=== PATIENT | female | born 1940 | race Caucasian/White ===

== ENCOUNTER 2016-09-23 02:28 | Observation (INO) | payer BC ==
[2016-09-23] VITALS (9 sets, daily range): BP systolic 95–147; BP diastolic 56–90; PULSE 60–70; TEMP 36.3–36.9; O2SAT 95–97; BMI 31.0
[~2016-09-23] VITALS: Ht 144.8 cm; Wt 64.1 kg
[~2016-09-23 02:28] MED LIST: ASPI81TA25 PO; CALC500T83 PO; CARV12.52 PO; DVN80 PO; FURO-85 PO; GABA1CAP PO; INSUINJ4 SQ; IRON1TAB4 PO; ISOS60TA PO; NVLGI SQ; OMEP20TA PO; TRAM-453 PO
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
[2016-09-23 03:17] LABS: BASO % 0.5 %; BASO ABS # 0.04 K/uL (0-0.2); COMPLETE YES; EOS % 2.8 %; HEMATOCRIT 40.2 % (37-47); IG% 0.3 %; LYMPH % 43.5 %; LYMPH ABS # 3.42 K/uL (1.2-3.4); MEAN CORPUSCULAR HEMOGLOBIN 30.5 pg (25-34); MEAN CORPUSCULAR HGB CONC 33.6 g/dl (32-36); MEAN PLATELET VOLUME 10.2 fL (7.4-10.4); MONO % 7.6 %; NEUT % 45.3 %; PLATELET COUNT 290 K/uL (130-400); RED BLOOD COUNT 4.42 M/uL (4.2-5.4); WHITE BLOOD COUNT 7.86 K/uL (4.8-10.8)
[2016-09-23 03:20] LABS: BUN/CREATININE RATIO 17.8 (10-20); CALCIUM 8.8 mg/dl (8.5-10.1); CREATININE 1.2 mg/dl (0.60-1.20); POTASSIUM 3.6 mmol/L (3.5-5.1)
[2016-09-23 03:21] LABS: URINE APPEARANCE CLEAR (CLEAR); URINE BILIRUBIN NEG (NEG); URINE COLOR YELLOW; URINE NITRITE NEG (NEG); URINE PH 5.5 (4.5-7.5); UROBILINOGEN NEG (NEG)
[2016-09-23 03:30] LABS: MANUAL MICROSCOPIC REQUIRED? NO; REVIEW REQ? NO
[2016-09-23] MEDS ORDERED: FLUT0.15 NAE (04:00)
[2016-09-23] MEDS ORDERED: CETI10TA84 PO (04:01)
[2016-09-23] MEDS ORDERED: PRVC/40 PO (04:04)
[2016-09-23] MEDS ORDERED: ZNTT/150 PO (04:06)
[2016-09-23] MEDS ORDERED: VNTHFA/IN INH (04:07)
[2016-09-23] MEDS ORDERED: LVMI SQ (04:09)
[2016-09-23] MEDS ORDERED: MECL1TAB42 PO (04:11)
[2016-09-23] MEDS ORDERED: MULTTAB58 PO (04:14)
[2016-09-23] MEDS ORDERED: ASPI81TA28 PO (04:15)
[2016-09-23] MEDS ORDERED: GLUCAGON FOR INJ 1 MG VIAL SQ PRN (05:15)
[2016-09-23] MEDS ORDERED: DEXTROSE 50% 50 ML SYR IV PRN (05:15)
[2016-09-23] MEDS ORDERED: ALUMINUM/MAGNESIUM/SIMETH (MAALOX MAX) 30 ML UDC PO PRN (05:15)
[2016-09-23] MEDS ORDERED: GLUCOSE 10 TABS/TUBE PO PRN (05:15)
[2016-09-23] MEDS ORDERED: ONDANSETRON INJ 2 MG/ML 2 ML VIAL IV PRN (05:15)
[2016-09-23] MEDS ORDERED: GLUCOSE 40% GEL 15 GM TUBE PO PRN (05:15)
[2016-09-23] MEDS ORDERED: MAGNESIUM HYDROXIDE SUSP 30 ML UDC PO PRN (05:15)
[2016-09-23] MEDS ORDERED: POLYETHYLENE (MIRALAX) 17 GM PACK PO PRN (05:15)
[2016-09-23] MEDS ORDERED: PHARMACY GLYCEMIC MGMT CONSULT PRN (05:29)
[2016-09-23] MEDS ORDERED: ENALAPRILAT IV 1.25 MG in DEXTROSE 5% 25ML 25 ML IV STA (05:32)
[2016-09-23] MEDS ORDERED: IV FLUIDS COMPLETED PRN (06:00)
[2016-09-23 06:15] LABS: INR 0.9 (0.9-1.1); PROTHROMBIN TIME (PATIENT) 9.9 SECONDS (9.0-12.0)
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
--- NOTE | 2016-09-23 07:09 | DIAGNOSTIC IMAGING REPORT ---
HEAD CT NONCONTRAST CT DOSE: 537.48 mGy.cm HISTORY: dizziness and unsteadiness TECHNIQUE: Multiaxial CT images of the head were performed without the use of intravenous contrast. Automated exposure control was utilized for this study. Comparison: Head CT 11/01/2012. Findings: The paranasal sinuses and mastoid air cells are clear. The calvarium and skull base are intact. There is no mass, hematoma, midline shift, acute infarct. White matter hypodensity is nonspecific but suggestive of microvascular ischemic change. The ventricles and sulci demonstrate mild age-related involutional changes. Old lacunar infarct within the right basal ganglia. Impression: No significant change compared to the prior study. No acute intracranial abnormality. Electronically signed by: Mushtaq Lopez M.D. 09/23/2016 7:07 AM Dictated Date/Time: 09/23/2016 7:06 AM
--- NOTE | 2016-09-23 07:17 | DIAGNOSTIC IMAGING REPORT ---
CHEST 2 VIEWS ROUTINE CLINICAL HISTORY: productive cough COMPARISON STUDY: 11/01/2012 FINDINGS: The heart is enlarged. There are postsurgical changes of a midline sternotomy. There is a left subclavian pacer/defibrillator present. There are low lung volumes. There is no failure. There is no lobar consolidation. There are no pleural effusions. Degenerative changes are present within the dorsal spine.[ IMPRESSION: Persistent cardiomegaly. No acute findings. Electronically signed by: Bryan Sherwood M.D. 09/23/2016 7:16 AM Dictated Date/Time: 09/23/2016 7:15 AM
[2016-09-23] MEDS: SODIUM CHLORIDE 0.9% 1000ML 1,000 ML IV SCH ×2 (07:45→15:32)
[2016-09-23] MEDS: ASPIRIN 81 MG ECTAB PO SCH (09:18)
[2016-09-23] MEDS: MECLIZINE HCL 12.5 MG TAB PO PRN (09:19)
[2016-09-23] MEDS: CARVEDILOL 12.5 MG TAB PO SCH ×2 (09:19→20:16)
[2016-09-23] MEDS: RANITIDINE HCL 150 MG TAB PO SCH ×2 (09:19→20:17)
[2016-09-23] MEDS: VALSARTAN 80 MG TAB PO SCH (09:19)
[2016-09-23] MEDS: GABAPENTIN 100 MG CAP PO SCH ×2 (09:19→20:16)
[2016-09-23] MEDS: CETIRIZINE HCL 10 MG TAB PO SCH (09:19)
[2016-09-23] MEDS: FLUTICASONE PROPIONATE NA SPR 16 GM BTL NAE SCH (09:21)
[2016-09-23] MEDS: HEPARIN SOD 5000 UNIT/0.5 ML CARP SQ SCH ×2 (09:27→20:22)
[2016-09-23] MEDS: INSULIN ASPART 100 UNITS/ML 3 ML PEN SC SCH ×4 (09:28→20:21)
[2016-09-23] MEDS: INSULIN GLARGINE SOLOSTAR 100 UNITS/ML 3 ML PEN SC SCH ×2 (09:29→20:20)
--- NOTE | 2016-09-23 12:01 | Pharmacy Progress Note ---
Glycemic Control Intl Consult Date of Service Sep 23, 2016. Scope Glycemic Pharmacist consulted by Dr Canada on 09/23/16 for glycemic control and to write orders per [facility] inpatient glycemic control protocol Objective Weight (Kilograms): 65.000 Accuchecks BSG (last 24hrs): Test 09/23/16 02:45 09/23/16 07:51 Random Glucose 211 mg/dl (70-99) Bedside Glucose 193 mg/dl (70-90) Laboratory Data (last 24hrs) Test 09/23/16 02:45 Anion Gap 8.0 mmol/L BUN/Creatinine Ratio 17.8 Blood Urea Nitrogen 21 mg/dl Creatinine 1.20 mg/dl Potassium Level 3.6 mmol/L Sodium Level 141 mmol/L White Blood Count 7.86 K/uL Red Blood Count 4.42 M/uL Hemoglobin 13.5 g/dL Hematocrit 40.2 % Mean Corpuscular Volume 91.0 fL Mean Corpuscular Hemoglobin 30.5 pg Mean Corpuscular Hemoglobin Concent 33.6 g/dl Platelet Count 290 K/uL Mean Platelet Volume 10.2 fL Neutrophils (%) (Auto) 45.3 % Lymphocytes (%) (Auto) 43.5 % Monocytes (%) (Auto) 7.6 % Eosinophils (%) (Auto) 2.8 % Basophils (%) (Auto) 0.5 % Neutrophils # (Auto) 3.56 K/uL Lymphocytes # (Auto) 3.42 K/uL Monocytes # (Auto) 0.60 K/uL Eosinophils # (Auto) 0.22 K/uL Basophils # (Auto) 0.04 K/uL Recent Pertinent Medications Outpatient Anti-diabetic Regimen: * [id number] units qPM plus Novolog 9 units BID with meals (NOTE: patient noncompliant with regimen due to dementia) Risk Factors for Insulin Resistance: * Diet: type 2 diabetic diet Assessment & Plan ASSESSMENT: * ADA & AACE recommend a goal blood sugar range 140-180 mg/dl for the majority of critically ill & non-critically ill patients. However, more stringent targets may be selected in individual cases. Will utilize more stringent goal of 110-140mg/dl based on patient age & comorbidities. I believe that a lower goal range will benefit this patient as she is not elderly and will help to prevent microvascular and macrovascular complications. * Ms Liu is a 75 y/o F admitted 09/23/2016 for weakness. She has a PMH of CAD , ischemic cardiomyopathy, HTN, and dementia. She has not been compliant with her medications. * As I am unsure about the dosing of her outpatient regimen, I felt that the safest place to start was weight-based stress of 2 dosing. Lantus 10 units twice daily was slightly less than her outpatient dosing so that appeared appropriate. If her lunch blood sugar trends upwards significantly, the correctional Novolog can be tightened slightly. PLAN FOR INPATIENT GLYCEMIC CONTROL: * Basal insulin with LANTUS 10 units SQ BID * Correctional Insulin with NOVOLOG per scale ACHS * Goal Range: Low 110 mg/dL - High 140 mg/dL * Correction Factor: 35 mg/dL/unit * Nutritional / Prandial insulin per carb ratio of 1 unit per 12 grams CHO consumed * Please note that the plan above was derived based on current level of insulin resistance and hospital stress. These recommendations are appropriate for inpatient admission only. Plan of care upon discharge will need to be reassessed to avoid potential outpatient hypo/hyperglycemia. Thank you.
[2016-09-23] MEDS: PRAVASTATIN SOD 40 MG TAB PO SCH (20:17)
[2016-09-23] MEDS: ACETAMINOPHEN 325 MG TAB PO PRN (20:44)
--- NOTE | 2016-09-23 21:22 | Progress Note ---
Progress Note Date of Service Sep 23, 2016. Progress Note Hospital medicine recheck. Admitted this morning due to change of mental status. Head CT showed small vessel ischemic changes in the white matter, no acute findings. Patient reassessed around 17:00. Blood pressure this afternoon 95/56. Patient comfortable, but has ongoing confusion. PT / OT evals requested. Case Management consulted. .
[2016-09-24] VITALS (9 sets, daily range): BP systolic 119–161; BP diastolic 66–76; PULSE 60–65; TEMP 36.4–36.7; O2SAT 92–98; Ht 144.8 cm; Wt 64.1 kg
[2016-09-24] MEDS: SODIUM CHLORIDE 0.9% 1000ML 1,000 ML IV SCH ×2 (01:34→10:38)
[2016-09-24 08:18] LABS: BUN/CREATININE RATIO 17.4 (10-20); CREATININE 0.88 mg/dl (0.60-1.20); POTASSIUM 3.7 mmol/L (3.5-5.1)
[2016-09-24 08:30] LABS: THYROID STIMULATING HORMONE 1.57 uIu/ml (0.300-4.500)
[2016-09-24 08:45] LABS: ESTIMATED AVERAGE GLUCOSE 272 mg/dl; HA1C FLAG Normal (Normal)
[2016-09-24] MEDS: VALSARTAN 80 MG TAB PO SCH (08:58)
[2016-09-24] MEDS: FLUTICASONE PROPIONATE NA SPR 16 GM BTL NAE SCH (08:58)
[2016-09-24] MEDS: CARVEDILOL 12.5 MG TAB PO SCH ×2 (08:59→20:44)
[2016-09-24] MEDS: ASPIRIN 81 MG ECTAB PO SCH (08:59)
[2016-09-24] MEDS: CETIRIZINE HCL 10 MG TAB PO SCH (08:59)
[2016-09-24] MEDS: GABAPENTIN 100 MG CAP PO SCH ×2 (08:59→20:44)
[2016-09-24] MEDS: RANITIDINE HCL 150 MG TAB PO SCH ×2 (08:59→20:44)
[2016-09-24] MEDS: INSULIN GLARGINE SOLOSTAR 100 UNITS/ML 3 ML PEN SC SCH ×2 (09:00→21:28)
[2016-09-24] MEDS: HEPARIN SOD 5000 UNIT/0.5 ML CARP SQ SCH ×2 (09:01→21:29)
[2016-09-24 09:02] LABS: CALCIUM 8.1 mg/dl (8.5-10.1)
[2016-09-24] MEDS: MECLIZINE HCL 12.5 MG TAB PO PRN (09:12)
--- NOTE | 2016-09-24 10:14 | Pharmacy Progress Note ---
Glycemic Control: Progress Nt Date of Service Sep 24, 2016. Scope Glycemic Pharmacist consulted by Dr Canada on 09/23/16 for glycemic control and to write orders per [facility] inpatient glycemic control protocol. Objective Accuchecks BSG (last 24hrs): Test 09/23/16 11:28 09/23/16 15:57 09/23/16 20:10 09/24/16 07:08 Bedside Glucose 196 mg/dl (70-90) 217 mg/dl (70-90) 166 mg/dl (70-90) Random Glucose 159 mg/dl (70-99) Test 09/24/16 07:34 Bedside Glucose 166 mg/dl (70-90) Laboratory Data (last 24hrs) Test 09/24/16 07:08 Anion Gap 10.0 mmol/L BUN/Creatinine Ratio 17.4 Blood Urea Nitrogen 15 mg/dl Creatinine 0.88 mg/dl Hemoglobin A1c 11.1 % Potassium Level 3.7 mmol/L Sodium Level 145 mmol/L HbA1c: Test 09/24/16 07:08 Hemoglobin A1c 11.1 % (4.5-5.6) H Recent Pertinent Medications Outpatient Anti-diabetic Regimen: * [id number] units qPM plus Novolog 9 units BID with meals (NOTE: patient noncompliant with regimen due to dementia) Risk Factors for Insulin Resistance: * Diet: type 2 diabetic diet Assessment & Plan ASSESSMENT: * ADA & AACE recommend a goal blood sugar range 140-180 mg/dl for the majority of critically ill & non-critically ill patients. However, more stringent targets may be selected in individual cases. Will utilize more stringent goal of 110-140mg/dl based on patient age & comorbidities. I believe that a lower goal range will benefit this patient as she is not elderly and will help to prevent microvascular and macrovascular complications. * Ms Liu is a 75 y/o F admitted 09/23/2016 for weakness. She has a PMH of CAD , ischemic cardiomyopathy, HTN, and dementia. She has not been compliant with her medications. She was started on Lantus 10 units twice daily with correctional insulin weight-based stress of 2. * This morning, her fasting blood sugar was 166 mg/dL which was stable from last night. Her lunch was 248 mg/dL because her breakfast insulin was not administered. There was a mix-up. I believe she may need closer to 50 units/ day. Lantus was increased and Novolog tightened to reflect this. PLAN FOR INPATIENT GLYCEMIC CONTROL: * Basal insulin with LANTUS 13 units SQ BID * Correctional Insulin with NOVOLOG per scale ACHS * Goal Range: Low 110 mg/dL - High 140 mg/dL * Correction Factor: 30 mg/dL/unit * Nutritional / Prandial insulin per carb ratio of 1 unit per 10 grams CHO consumed DISCHARGE RECOMMENDATIONS * Patient's HbA1C is very elevated and above goal of 7.6-8.0%. I recommend utilizing Lantus + Novolog and titrating to desired blood sugars. Patient may tolerate Lantus 13 units twice daily with 5 units with meals. Thank you.
[2016-09-24] MEDS: INSULIN ASPART 100 UNITS/ML 3 ML PEN SC SCH ×3 (12:38→21:29)
--- NOTE | 2016-09-24 20:33 | Progress Note ---
Medicine Progress Note Date & Time of Visit: Sep 24, 2016 at 15:12 . Subjective Less confused. No fever. No chest pain. No cough or shortness of breath. No nausea, vomiting, diarrhea. No urinary symptoms. No headache. Evaluated by PT- ongoing therapies recommended. Family visiting. . Objective Last 8 Hrs Date Time Temp Pulse Resp B/P (MAP) Pulse Ox O2 Delivery O2 Flow Rate FiO2 09/24/16 14:39 36.4 61 20 161/69 (99) 95 Room Air 09/24/16 12:00 Room Air 09/24/16 11:42 36.4 63 18 151/76 (101) 97 Room Air 09/24/16 08:57 65 152/66 (94) 09/24/16 08:00 Room Air Physical Exam: General- no distress Eyes- anicteric Neck- no JVD Lungs- clear to auscultation Heart- RRR Abdomen- + BS, soft, nontender Extremities- no pretibial edema or calf tenderness Neuro- alert, oriented to person, hospital, month and year (but not date); PERRL , EOMI, no nystagmus; no facial palsy; no dysarthria; motor strength upper and lower extremities grossly intact . Laboratory Results: Last 24 Hours Test 09/23/16 15:57 09/23/16 20:10 09/24/16 07:08 09/24/16 07:34 Bedside Glucose 217 mg/dl 166 mg/dl 166 mg/dl Sodium Level 145 mmol/L Potassium Level 3.7 mmol/L Chloride Level 112 mmol/L Carbon Dioxide Level 23 mmol/L Anion Gap 10.0 mmol/L Blood Urea Nitrogen 15 mg/dl Creatinine 0.88 mg/dl Est Creatinine Clear Calc Drug Dose 43.8 ml/min Estimated GFR () 75.0 Estimated GFR (Non- 64.7 BUN/Creatinine Ratio 17.4 Random Glucose 159 mg/dl Estimated Average Glucose 272 mg/dl Hemoglobin A1c 11.1 % Calcium Level 8.1 mg/dl Vitamin B12 Level 330 pg/mL 25-Hydroxy Vitamin D Total 13.2 ng/ml Thyroid Stimulating Hormone (TSH) 1.570 uIu/ml Test 09/24/16 11:21 Bedside Glucose 248 mg/dl Assessment & Plan ALTERED MENTAL STATUS Head CT showed old lacunar stroke and white matter small vessel ischemic disease , no acute events. Altered mental status may been secondary to metabolic encephalopathy from meclizine or perhaps from concussion from fall. Improved. Underlying dementia as discussed below. VERTIGO Reduce meclizine to 12.5 mg PRN. AMBULATORY DYSFUNCTION Probably multifactorial. Ongoing therapies recommended. CAD No anginal symptoms. Continue aspirin, carvedilol, statin. CHF History of chronic left ventricular systolic heart failure attributed to ischemic heart disease with LVEF in 40's. Compensated. Continue carvedilol, valsartan, furosemide PRN. HISTORY BRADYCARDIA ARRHYTHMIAS Pacemaker check requested. HYPERTENSION Continue carvedilol and losartan. DM TYPE 2 Not well-controlled. Hgb A1c 11.1. Compliance at home uncertain. Lantus + NovoLog per protocol. DEMENTIA Family has noted progressive memory difficulties. CT demonstrated lacunar strokes and small vessel white matter disease. Suspect Alzheimer's disease and/or vascular dementia. B12 and TSH normal. Medications for dementia may have more adverse reactions benefit; will not initiate at this time. Consider outpatient referral to Neurology. VTE PROPHYLAXIS SQ heparin. Ambulate. DISPOSITION Inpatient rehabilitation recommended, but patient declines. She is not interested in nursing home facilities either. Anticipated discharge to home with home health services. Medical follow-up with Dr. Gallardo. . Current Inpatient Medications: Current Inpatient Medications Medications (Trade) Dose Ordered Sig/Lam Route Start Time Stop Time Status Last Admin Dose Admin Heparin Sodium (Porcine) (Heparin Sq 5000 Unit/0.5ml) 5,000 unit Q12 SQ 09/23/16 09:00 10/23/16 08:59 09/24/16 09:01 5,000 UNIT Sodium Chloride 1,000 ml @ 100 mls/hr Q10H IV 09/23/16 05:11 10/23/16 05:10 09/24/16 10:38 100 MLS/HR Acetaminophen (Tylenol Tab) 650 mg Q4H PRN PO 09/23/16 05:15 10/23/16 05:14 09/23/16 20:44 650 MG Al Hydrox/Mg Hydrox/Simethicone (Maalox Max Susp) 15 ml Q4H PRN PO 09/23/16 05:15 10/23/16 05:14 Magnesium Hydroxide (Milk Of Magnesia Susp) 30 ml Q12H PRN PO 09/23/16 05:15 10/23/16 05:14 Ondansetron HCl (Zofran Inj) 4 mg Q6H PRN IV 09/23/16 05:15 10/23/16 05:14 Polyethylene (Miralax Powder Packet) 17 gm DAILY PRN PO 09/23/16 05:15 10/23/16 05:14 Glucose (Glucose 40% Gel) 15-30 GRAMS 15 GRAMS... UD PRN PO 09/23/16 05:15 10/23/16 05:14 Glucose (Glucose Chew Tab) 4-8 Tablets 4 Tabl... UD PRN PO 09/23/16 05:15 10/23/16 05:14 Dextrose (Dextrose 50% 50ML Syringe) 25-50ML OF 50% DW IV FOR... UD PRN IV 09/23/16 05:15 10/23/16 05:14 Glucagon (Glucagon Inj) 1 mg UD PRN SQ 09/23/16 05:15 10/23/16 05:14 Miscellaneous Information (Consult Glycemic Management Pharmacy) 1 ea DAILY PRN N/A 09/23/16 05:29 10/23/16 05:28 Aspirin (Ecotrin Tab) 81 mg DAILY PO 09/23/16 09:00 10/23/16 08:59 09/24/16 08:59 81 MG Carvedilol (Coreg Tab) 12.5 mg BID PO 09/23/16 09:00 10/23/16 08:59 09/24/16 08:59 12.5 MG Cetirizine HCl (zyrTEC TAB) 10 mg DAILY PO 09/23/16 09:00 10/23/16 08:59 09/24/16 08:59 10 MG Fluticasone Propionate (Flonase Nasal [place]) 2 sprays DAILY ANDREW 09/23/16 09:00 10/23/16 08:59 09/24/16 08:58 2 SPRAYS Gabapentin (Neurontin Cap) 100 mg BID PO 09/23/16 09:00 10/23/16 08:59 09/24/16 08:59 100 MG Meclizine HCl (Antivert Tab) 25 mg TID PRN PO 09/23/16 05:15 10/23/16 05:14 09/24/16 09:12 25 MG Pravastatin Sodium (Pravachol Tab) 40 mg PM PO 09/23/16 21:00 10/23/16 20:59 09/23/16 20:17 40 MG Ranitidine HCl (zANTac TAB) 150 mg BID PO 09/23/16 09:00 10/23/16 08:59 09/24/16 08:59 150 MG Valsartan (Diovan Tab) 80 mg DAILY PO 09/23/16 09:00 10/23/16 08:59 09/24/16 08:58 80 MG Miscellaneous (Iv Fluids Completed) 1 ea PRN PRN N/A 09/23/16 06:00 09/23/17 05:59 Insulin Glargine (Lantus Solostar Pen) 13 unit Q12 SC 09/24/16 09:00 10/24/16 08:59 09/24/16 09:00 13 UNIT Insulin Aspart (novoLOG ASPART) SLIDING SCALE If C... ACHS SC 09/24/16 11:00 10/24/16 10:59 09/24/16 12:38 10 UNITS
[2016-09-24] MEDS: PRAVASTATIN SOD 40 MG TAB PO SCH (20:44)
[2016-09-24] MEDS ORDERED: MECLIZINE HCL 12.5 MG TAB PO PRN (20:45)
[2016-09-24] MEDS: ACETAMINOPHEN 325 MG TAB PO PRN (22:30)
[2016-09-25] VITALS (10 sets, daily range): BP systolic 125–157; BP diastolic 63–80; PULSE 61–70; TEMP 36.5–37; O2SAT 95–99
[2016-09-25] MEDS: FLUTICASONE PROPIONATE NA SPR 16 GM BTL NAE SCH (08:40)
[2016-09-25] MEDS: INSULIN GLARGINE SOLOSTAR 100 UNITS/ML 3 ML PEN SC SCH ×2 (08:41→21:18)
[2016-09-25] MEDS: INSULIN ASPART 100 UNITS/ML 3 ML PEN SC SCH ×4 (08:41→20:57)
[2016-09-25] MEDS: HEPARIN SOD 5000 UNIT/0.5 ML CARP SQ SCH ×2 (08:41→21:19)
[2016-09-25] MEDS: CARVEDILOL 12.5 MG TAB PO SCH ×2 (08:43→21:16)
[2016-09-25] MEDS: CETIRIZINE HCL 10 MG TAB PO SCH (08:43)
[2016-09-25] MEDS: ASPIRIN 81 MG ECTAB PO SCH (08:43)
[2016-09-25] MEDS: VALSARTAN 80 MG TAB PO SCH (08:44)
[2016-09-25] MEDS: RANITIDINE HCL 150 MG TAB PO SCH ×2 (08:44→21:16)
[2016-09-25] MEDS: GABAPENTIN 100 MG CAP PO SCH ×2 (08:45→21:15)
[2016-09-25] MEDS ORDERED: FUROSEMIDE 20 MG TAB PO ONE (13:00)
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
[2016-09-26] VITALS (8 sets, daily range): BP systolic 112–158; BP diastolic 63–82; PULSE 59–91; TEMP 36.2–36.8; O2SAT 93–98
[2016-09-26 06:55] LABS: HEMATOCRIT 35.4 % (37-47); MEAN CELL VOLUME 90.3 fL (80-100); MEAN CORPUSCULAR HEMOGLOBIN 29.8 pg (25-34); MEAN CORPUSCULAR HGB CONC 33.1 g/dl (32-36); MEAN PLATELET VOLUME 9.9 fL (7.4-10.4); PLATELET COUNT 242 K/uL (130-400); RED BLOOD COUNT 3.92 M/uL (4.2-5.4); WHITE BLOOD COUNT 7.58 K/uL (4.8-10.8)
[2016-09-26 07:35] LABS: CALCIUM 8.2 mg/dl (8.5-10.1); CREATININE 0.81 mg/dl (0.60-1.20); POTASSIUM 3.7 mmol/L (3.5-5.1)
[2016-09-26] MEDS: ASPIRIN 81 MG ECTAB PO SCH (07:35)
[2016-09-26] MEDS: VALSARTAN 80 MG TAB PO SCH (07:36)
[2016-09-26] MEDS: CARVEDILOL 12.5 MG TAB PO SCH ×2 (07:36→21:18)
[2016-09-26] MEDS: RANITIDINE HCL 150 MG TAB PO SCH ×2 (07:36→21:18)
[2016-09-26] MEDS: CETIRIZINE HCL 10 MG TAB PO SCH (07:36)
[2016-09-26] MEDS: FLUTICASONE PROPIONATE NA SPR 16 GM BTL NAE SCH (07:37)
[2016-09-26] MEDS: GABAPENTIN 100 MG CAP PO SCH ×2 (07:37→21:18)
[2016-09-26] MEDS: INSULIN ASPART 100 UNITS/ML 3 ML PEN SC SCH ×4 (08:57→21:00)
[2016-09-26] MEDS: HEPARIN SOD 5000 UNIT/0.5 ML CARP SQ SCH ×2 (08:57→21:20)
--- NOTE | 2016-09-26 14:14 | Pharmacy Progress Note ---
Glycemic Control: Progress Nt Date of Service Sep 26, 2016. Scope Glycemic Pharmacist consulted by on 09/23/16 for glycemic control and to write orders per [facility] inpatient glycemic control protocol. Objective Accuchecks BSG (last 24hrs): Test 09/25/16 16:36 09/25/16 20:35 09/26/16 06:27 09/26/16 07:51 Bedside Glucose 117 mg/dl (70-90) 122 mg/dl (70-90) 135 mg/dl (70-90) Random Glucose 158 mg/dl (70-99) Test 09/26/16 11:34 Bedside Glucose 213 mg/dl (70-90) Laboratory Data (last 24hrs) Test 09/26/16 06:27 Anion Gap 8.0 mmol/L BUN/Creatinine Ratio 16.0 Blood Urea Nitrogen 13 mg/dl Creatinine 0.81 mg/dl Potassium Level 3.7 mmol/L Sodium Level 143 mmol/L White Blood Count 7.58 K/uL HbA1c: Test 09/24/16 07:08 Hemoglobin A1c 11.1 % (4.5-5.6) H Recent Pertinent Medications Outpatient Anti-diabetic Regimen: * Levemir 25 units PM. Novolog 9 units BIDM (pt reports missing doses. helped her take insulin; he 2 years ago.) * A1c = 11.1 % from 09/24/16 Risk Factors for Insulin Resistance: * Diet: AHA/DM2 Assessment & Plan ASSESSMENT: * ADA & AACE recommend a goal blood sugar range 140-180 mg/dl for the majority of critically ill & non-critically ill patients. However, more stringent targets may be selected in individual cases. 09/24/16 * Ms Liu is a 75 y/o F admitted 09/23/2016 for weakness. She has a PMH of CAD , ischemic cardiomyopathy, HTN, and dementia. She has not been compliant with her medications. She was started on Lantus 10 units twice daily with correctional insulin weight-based stress of 2. * This morning, her fasting blood sugar was 166 mg/dL which was stable from last night. Her lunch was 248 mg/dL because her breakfast insulin was not administered. There was a mix-up. I believe she may need closer to 50 units/ day. Lantus was increased and Novolog tightened to reflect this. 09/26/16 * FBG this morning was 135 mg/dl. TDD is stable at 40 units per day. Basal vs prandial insulin needs seem near equally distributed. * BSGs are reasonably controlled at this time. Will adjust Lantus toward HS dosing for smoother transition to home dose upon discharge. * Will start first dose this afternoon to avoid prolonged withdraw of basal insulin causing hyperglycemia. * Pre-lunch BSG today was 213 mg/dl. ?Could be due to withholding today's AM Lantus dose in prep to transition to HS dosing. * No other changes warranted at this time. PLAN FOR INPATIENT GLYCEMIC CONTROL: * Adjust Lantus to HS - Lantus 25 units SQ HS * Start first dose with supper today * Novolog ACHS * Continue correction factor 30 mg/dl/unit * Continue carb ratio 1 unit per 10 grams CHO consumed * Continue goal range Low 110 mg/dL - High 140 mg/dL * Please note that the plan above was derived based on current level of insulin resistance and hospital stress. These recommendations are appropriate for inpatient admission only. Plan of care upon discharge will need to be reassessed to avoid potential outpatient hypo/hyperglycemia. Thank you.
[2016-09-26] MEDS ORDERED: FUROSEMIDE 20 MG TAB PO ONE (16:00)
[2016-09-26] MEDS ORDERED: POTASSIUM CHLORIDE 20 MEQ TABCR PO ONE (16:00)
--- NOTE | 2016-09-26 16:05 | Progress Note ---
Medicine Progress Note Date & Time of Visit: Sep 26, 2016 at 14:20 . Subjective No new concerns. No fever. No chest pain. Has some mild dependent edema. No cough or SOB. No nausea, vomiting, diarrhea. No urinary symptoms. No headaches. No vertigo. . Objective Last 8 Hrs Date Time Temp Pulse Resp B/P (MAP) Pulse Ox O2 Delivery O2 Flow Rate FiO2 09/26/16 15:20 36.8 62 16 147/65 (92) 98 151/78 (102) 09/26/16 12:00 Room Air 09/26/16 11:28 36.2 59 16 112/63 (79) 98 Room Air Physical Exam: General- no distress Eyes- anicteric Neck- no JVD Lungs- clear to auscultation Heart- RRR Abdomen- + BS, soft, nontender Extremities- trace pretibial edema; no calf tenderness Neuro- alert, oriented to person, hospital, and date (after referring to date noted on activity board on wall) . Laboratory Results: Last 24 Hours Test 09/25/16 16:36 09/25/16 20:35 09/26/16 06:27 09/26/16 07:51 Bedside Glucose 117 mg/dl 122 mg/dl 135 mg/dl White Blood Count 7.58 K/uL Red Blood Count 3.92 M/uL Hemoglobin 11.7 g/dL Hematocrit 35.4 % Mean Corpuscular Volume 90.3 fL Mean Corpuscular Hemoglobin 29.8 pg Mean Corpuscular Hemoglobin Concent 33.1 g/dl RDW Standard Deviation 44.1 fL RDW Coefficient of Variation 13.3 % Platelet Count 242 K/uL Mean Platelet Volume 9.9 fL Sodium Level 143 mmol/L Potassium Level 3.7 mmol/L Chloride Level 110 mmol/L Carbon Dioxide Level 25 mmol/L Anion Gap 8.0 mmol/L Blood Urea Nitrogen 13 mg/dl Creatinine 0.81 mg/dl Est Creatinine Clear Calc Drug Dose 47.6 ml/min Estimated GFR () 82.9 Estimated GFR (Non- 71.5 BUN/Creatinine Ratio 16.0 Random Glucose 158 mg/dl Calcium Level 8.2 mg/dl Test 09/26/16 11:34 Bedside Glucose 213 mg/dl Assessment & Plan ALTERED MENTAL STATUS Head CT showed old lacunar stroke and white matter small vessel ischemic disease , no acute events. Altered mental status may been secondary to metabolic encephalopathy from meclizine or perhaps from concussion from fall. Underlying dementia as discussed below. Mental status continues to improve. VERTIGO Reduce meclizine to 12.5 mg PRN. Nursing staff reports the patient is requesting meclizine even when she is not experiencing vertigo. Meclizine could be contributing to confusion, especially if overutilized. Proper/minimal use emphasized. AMBULATORY DYSFUNCTION Probably multifactorial. Ongoing therapies recommended. Patient refusing inpatient rehabilitation. Skilled care discussed, patient reluctant to consider. Continue PT, OT, ambulation with assistance. CAD No anginal symptoms. Continue aspirin, carvedilol, statin. CHF History of chronic left ventricular systolic heart failure attributed to ischemic heart disease with LVEF in 40's. Compensated. Continue carvedilol, valsartan, furosemide PRN. HISTORY BRADYCARDIA ARRHYTHMIAS Pacemaker check requested and indicates that battery is nearing end-of-life. Patient's cardiology clinic in [place] contacted her family and arrangements have been made for generator replacement on 09/29. HYPERTENSION Continue carvedilol and losartan. DM TYPE 2 Not well-controlled. Hgb A1c 11.1. Compliance at home uncertain. Pharmacy consulted for glycemic management. Lantus + NovoLog per protocol. FBS this morning 135. DEMENTIA Family has noted progressive memory difficulties. CT demonstrated lacunar strokes and small vessel white matter disease. Suspect Alzheimer's disease and/or vascular dementia. B12 and TSH normal. Medications for dementia may have more adverse reactions benefit; will not initiate at this time. Consider outpatient referral to Neurology. VTE PROPHYLAXIS SQ heparin. Ambulate. DISPOSITION Inpatient rehabilitation recommended, but patient declines. She is not interested in [facility]ci facilities either. Anticipated discharge to home with home health services. Medical follow-up with Dr. Gallardo. . Consultants: Pharmacy re: glycemic control . Procedures: CT head IV fluids PT OT . Current Inpatient Medications: Current Inpatient Medications Medications (Trade) Dose Ordered Sig/Lam Route Start Time Stop Time Status Last Admin Dose Admin Heparin Sodium (Porcine) (Heparin Sq 5000 Unit/0.5ml) 5,000 unit Q12 SQ 09/23/16 09:00 10/23/16 08:59 09/26/16 08:57 5,000 UNIT Acetaminophen (Tylenol Tab) 650 mg Q4H PRN PO 09/23/16 05:15 10/23/16 05:14 6/16/17 22:30 650 MG Al Hydrox/Mg Hydrox/Simethicone (Maalox Max Susp) 15 ml Q4H PRN PO 09/23/16 05:15 10/23/16 05:14 Magnesium Hydroxide (Milk Of Magnesia Susp) 30 ml Q12H PRN PO 09/23/16 05:15 10/23/16 05:14 Ondansetron HCl (Zofran Inj) 4 mg Q6H PRN IV 09/23/16 05:15 10/23/16 05:14 Polyethylene (Miralax Powder Packet) 17 gm DAILY PRN PO 09/23/16 05:15 10/23/16 05:14 Glucose (Glucose 40% Gel) 15-30 GRAMS 15 GRAMS... UD PRN PO 09/23/16 05:15 10/23/16 05:14 Glucose (Glucose Chew Tab) 4-8 Tablets 4 Tabl... UD PRN PO 09/23/16 05:15 10/23/16 05:14 Dextrose (Dextrose 50% 50ML Syringe) 25-50ML OF 50% DW IV FOR... UD PRN IV 09/23/16 05:15 10/23/16 05:14 Glucagon (Glucagon Inj) 1 mg UD PRN SQ 09/23/16 05:15 10/23/16 05:14 Miscellaneous Information (Consult Glycemic Management Pharmacy) 1 ea DAILY PRN N/A 09/23/16 05:29 10/23/16 05:28 Aspirin (Ecotrin Tab) 81 mg DAILY PO 09/23/16 09:00 10/23/16 08:59 09/26/16 07:35 81 MG Carvedilol (Coreg Tab) 12.5 mg BID PO 09/23/16 09:00 10/23/16 08:59 09/26/16 07:36 12.5 MG Cetirizine HCl (zyrTEC TAB) 10 mg DAILY PO 09/23/16 09:00 10/23/16 08:59 09/26/16 07:36 10 MG Fluticasone Propionate (Flonase Nasal [place]) 2 sprays DAILY ANDREW 09/23/16 09:00 10/23/16 08:59 09/26/16 07:37 2 SPRAYS Gabapentin (Neurontin Cap) 100 mg BID PO 09/23/16 09:00 10/23/16 08:59 09/26/16 07:37 100 MG Ranitidine HCl (zANTac TAB) 150 mg BID PO 09/23/16 09:00 10/23/16 08:59 09/26/16 07:36 150 MG Valsartan (Diovan Tab) 80 mg DAILY PO 09/23/16 09:00 10/23/16 08:59 09/26/16 07:36 80 MG Insulin Aspart (novoLOG ASPART) SLIDING SCALE If C... ACHS SC 09/24/16 11:00 10/24/16 10:59 09/26/16 12:32 7 UNITS Meclizine HCl (Antivert Tab) 12.5 mg BID PRN PO 09/24/16 20:45 10/24/16 20:44 09/25/16 08:42 12.5 MG Insulin Glargine (Lantus Solostar Pen) 25 unit HS SC 09/26/16 16:30 10/26/16 16:29 Furosemide (Lasix Tab) 20 mg NOW ONCE PO 09/26/16 16:00 09/26/16 16:01 UNV Potassium Chloride (Klor-Con Tab) 20 meq NOW ONCE PO 09/26/16 16:00 09/26/16 16:01 UNV
[2016-09-26] MEDS ORDERED: INSULIN GLARGINE SOLOSTAR 100 UNITS/ML 3 ML PEN SC SCH ×2 (16:30→21:00)
[2016-09-27] VITALS (7 sets, daily range): BP systolic 107–176; BP diastolic 63–92; PULSE 59–71; TEMP 36.4–36.8; O2SAT 94–97
[2016-09-27] MEDS: GABAPENTIN 100 MG CAP PO SCH ×2 (07:52→21:32)
[2016-09-27] MEDS: RANITIDINE HCL 150 MG TAB PO SCH ×2 (07:52→21:31)
[2016-09-27] MEDS: FLUTICASONE PROPIONATE NA SPR 16 GM BTL NAE SCH (07:52)
[2016-09-27] MEDS: CETIRIZINE HCL 10 MG TAB PO SCH (07:52)
[2016-09-27] MEDS: ASPIRIN 81 MG ECTAB PO SCH (07:52)
[2016-09-27] MEDS: VALSARTAN 80 MG TAB PO SCH (07:52)
[2016-09-27] MEDS: CARVEDILOL 12.5 MG TAB PO SCH ×2 (07:52→21:31)
[2016-09-27] MEDS: INSULIN ASPART 100 UNITS/ML 3 ML PEN SC SCH ×4 (07:55→21:31)
[2016-09-27] MEDS: HEPARIN SOD 5000 UNIT/0.5 ML CARP SQ SCH ×2 (07:55→21:30)
--- NOTE | 2016-09-27 12:45 | Pharmacy Progress Note ---
Glycemic: Assessment & Plan Date of Service Sep 27, 2016. Assessment & Plan The patient is currently receiving 43 units of insulin per day. BSGs ranging 120 - 212 mg/dl over the past 24hrs. * Basal insulin: Lantus 25 units every 24 hours - just switched from BID Lantus * Correctional Insulin: Novolog Correction per scale ACHS Goal Range: Low 110 mg/dL - High 140 mg/dL Correction Factor: 30 mg/dL/unit * Prandial insulin: Per carb ratio of 1 unit per 10 grams CHO consumed ASSESSMENT: * Fasting and pre-lunch BSG elevated today, and the only change that was made was a transition from BID to once daily Lantus * ? if this is not lasting the full 24 hours * Do not want to change back to BID until we see a trend * Will instead increase the basal slightly and plan to f/u tomorrow PLAN: * Increase Lantus to 27 units qHS * Continue CF 30 * Continue CR 10 Pharmacy will continue to monitor patient daily and write orders per [facility] inpatient glycemic control protocol. Thanks. * Please note that the plan above was derived based on current level of insulin resistance and hospital stress. These recommendations are appropriate for inpatient admission only. Plan of care upon discharge will need to be reassessed to avoid potential outpatient hypo/hyperglycemia.
[2016-09-27] MEDS: ACETAMINOPHEN 325 MG TAB PO PRN (16:09)
[2016-09-27] MEDS ORDERED: INSULIN GLARGINE SOLOSTAR 100 UNITS/ML 3 ML PEN SC SCH (21:00)
--- NOTE | 2016-09-27 21:33 | Progress Note ---
Medicine Progress Note Date & Time of Visit: Sep 27, 2016 at ~ 18:00 . Subjective Seen by Case Management. Refusing to consider inpatient rehabilitation or skilled care. Participating in PT / OT. No fever. No chest pain. Lower extremity edema improved. No cough or shortness of breath. No nausea, vomiting, diarrhea. No urinary symptoms. . Objective Last 8 Hrs Date Time Temp Pulse Resp B/P (MAP) Pulse Ox O2 Delivery O2 Flow Rate FiO2 09/27/16 19:55 36.5 71 18 161/66 (97) 94 Room Air 09/27/16 16:00 96 Room Air 09/27/16 15:04 36.8 59 18 149/73 (98) 96 Room Air Physical Exam: General- no distress Eyes- anicteric Neck- no JVD Lungs- clear to auscultation Heart- RRR Abdomen- + BS, soft, nontender Extremities- trace pretibial edema; no calf tenderness Neuro- alert, oriented to person, hospital, and date (after referring to date noted on activity board on wall) . Laboratory Results: Last 24 Hours Test 09/27/16 07:39 09/27/16 11:17 09/27/16 16:56 09/27/16 20:48 Bedside Glucose 184 mg/dl 212 mg/dl 133 mg/dl 151 mg/dl Assessment & Plan ALTERED MENTAL STATUS Head CT showed old lacunar stroke and white matter small vessel ischemic disease , no acute events. Altered mental status may been secondary to metabolic encephalopathy from meclizine or perhaps from concussion from fall. Underlying dementia as discussed below. Mental status continues to improve. VERTIGO Reduce meclizine to 12.5 mg PRN. Nursing staff reports the patient is requesting meclizine even when she is not experiencing vertigo. Meclizine could be contributing to confusion, especially if overutilized. Proper/minimal use emphasized. AMBULATORY DYSFUNCTION Probably multifactorial. Ongoing therapies recommended. Patient refusing inpatient rehabilitation. Skilled care discussed, patient reluctant to consider. Continue PT, OT, ambulation with assistance. CAD No anginal symptoms. Continue aspirin, carvedilol, statin. CHF History of chronic left ventricular systolic heart failure attributed to ischemic heart disease with LVEF in 40's. Compensated. Continue carvedilol, valsartan, furosemide PRN. HISTORY BRADYCARDIA ARRHYTHMIAS Pacemaker check requested and indicates that battery is nearing end-of-life. Patient's cardiology clinic in [place] contacted her family and arrangements have been made for generator replacement on 09/29. Continue cardiac monitoring. HYPERTENSION Blood pressures fluctuating, probably partly secondary to anxiety. Continue carvedilol and losartan. DM TYPE 2 Not well-controlled. Hgb A1c 11.1. Compliance at home uncertain. Pharmacy consulted for glycemic management. Lantus + NovoLog per protocol. FBS this morning = 184. DEMENTIA Family has noted progressive memory difficulties. CT demonstrated lacunar strokes and small vessel white matter disease. Suspect Alzheimer's disease and/or vascular dementia. B12 and TSH normal. Medications for dementia may have more adverse reactions benefit; will not initiate at this time. Consider outpatient referral to Neurology. VTE PROPHYLAXIS SQ heparin. Ambulate. DISPOSITION Inpatient rehabilitation or skilled care recommended, but patient declines. Anticipated discharge to home with home health services. Medical follow-up with Dr. Gallardo. Follow-up with her him manager in [place]. . Consultants: Pharmacy re: glycemic control . Procedures: CT head IV fluids PT OT . Current Inpatient Medications: Current Inpatient Medications Medications (Trade) Dose Ordered Sig/Lam Route Start Time Stop Time Status Last Admin Dose Admin Heparin Sodium (Porcine) (Heparin Sq 5000 Unit/0.5ml) 5,000 unit Q12 SQ 09/23/16 09:00 10/23/16 08:59 09/27/16 07:55 5,000 UNIT Acetaminophen (Tylenol Tab) 650 mg Q4H PRN PO 09/23/16 05:15 10/23/16 05:14 09/27/16 16:09 650 MG Al Hydrox/Mg Hydrox/Simethicone (Maalox Max Susp) 15 ml Q4H PRN PO 09/23/16 05:15 10/23/16 05:14 Magnesium Hydroxide (Milk Of Magnesia Susp) 30 ml Q12H PRN PO 09/23/16 05:15 10/23/16 05:14 Ondansetron HCl (Zofran Inj) 4 mg Q6H PRN IV 09/23/16 05:15 10/23/16 05:14 Polyethylene (Miralax Powder Packet) 17 gm DAILY PRN PO 09/23/16 05:15 10/23/16 05:14 Glucose (Glucose 40% Gel) 15-30 GRAMS 15 GRAMS... UD PRN PO 09/23/16 05:15 10/23/16 05:14 Glucose (Glucose Chew Tab) 4-8 Tablets 4 Tabl... UD PRN PO 09/23/16 05:15 10/23/16 05:14 Dextrose (Dextrose 50% 50ML Syringe) 25-50ML OF 50% DW IV FOR... UD PRN IV 09/23/16 05:15 10/23/16 05:14 Glucagon (Glucagon Inj) 1 mg UD PRN SQ 09/23/16 05:15 10/23/16 05:14 Miscellaneous Information (Consult Glycemic Management Pharmacy) 1 ea DAILY PRN N/A 09/23/16 05:29 10/23/16 05:28 Aspirin (Ecotrin Tab) 81 mg DAILY PO 09/23/16 09:00 10/23/16 08:59 09/27/16 07:52 81 MG Carvedilol (Coreg Tab) 12.5 mg BID PO 09/23/16 09:00 10/23/16 08:59 09/27/16 07:52 12.5 MG Cetirizine HCl (zyrTEC TAB) 10 mg DAILY PO 09/23/16 09:00 10/23/16 08:59 09/27/16 07:52 10 MG Fluticasone Propionate (Flonase Nasal [place]) 2 sprays DAILY ANDREW 09/23/16 09:00 10/23/16 08:59 09/27/16 07:52 2 SPRAYS Gabapentin (Neurontin Cap) 100 mg BID PO 09/23/16 09:00 10/23/16 08:59 09/27/16 07:52 100 MG Ranitidine HCl (zANTac TAB) 150 mg BID PO 09/23/16 09:00 10/23/16 08:59 09/27/16 07:52 150 MG Valsartan (Diovan Tab) 80 mg DAILY PO 09/23/16 09:00 10/23/16 08:59 09/27/16 07:52 80 MG Insulin Aspart (novoLOG ASPART) SLIDING SCALE If C... ACHS SC 09/24/16 11:00 10/24/16 10:59 09/27/16 17:43 6 UNITS Meclizine HCl (Antivert Tab) 12.5 mg BID PRN PO 09/24/16 20:45 10/24/16 20:44 09/25/16 08:42 12.5 MG Insulin Glargine (Lantus Solostar Pen) 27 unit HS SC 09/27/16 21:00 10/27/16 20:59
[2016-09-28 00:04] VITALS: BP 96/52; PULSE 60; TEMP 36.4; O2SAT 94
[2016-09-28 04:04] VITALS: BP 137/74; PULSE 63; TEMP 36.6; O2SAT 95
[2016-09-28 07:26] VITALS: BP 149/79; PULSE 61; TEMP 36.4; O2SAT 99
[2016-09-28] MEDS: CARVEDILOL 12.5 MG TAB PO SCH (08:06)
[2016-09-28] MEDS: ASPIRIN 81 MG ECTAB PO SCH (08:06)
[2016-09-28] MEDS: VALSARTAN 80 MG TAB PO SCH (08:06)
[2016-09-28] MEDS: GABAPENTIN 100 MG CAP PO SCH (08:06)
[2016-09-28] MEDS: RANITIDINE HCL 150 MG TAB PO SCH (08:06)
[2016-09-28] MEDS: FLUTICASONE PROPIONATE NA SPR 16 GM BTL NAE SCH (08:06)
[2016-09-28] MEDS: CETIRIZINE HCL 10 MG TAB PO SCH (08:06)
[2016-09-28] MEDS: INSULIN ASPART 100 UNITS/ML 3 ML PEN SC SCH ×2 (08:09→12:30)
[2016-09-28] MEDS: HEPARIN SOD 5000 UNIT/0.5 ML CARP SQ SCH (08:09)
--- NOTE | 2016-09-28 10:14 | Pharmacy Progress Note ---
Glycemic: Assessment & Plan Date of Service Sep 28, 2016. Assessment & Plan The patient is currently receiving 44 units of insulin per day. BSGs ranging 108 - 212 mg/dl over the past 24hrs. * Basal insulin: Lantus 27 units every 24 hours - just increased last evening * Correctional Insulin: Novolog Correction per scale ACHS Goal Range: Low 110 mg/dL - High 140 mg/dL Correction Factor: 30 mg/dL/unit * Prandial insulin: Per carb ratio of 1 unit per 10 grams CHO consumed ASSESSMENT: 09/27/16 * Fasting and pre-lunch BSG elevated today, and the only change that was made was a transition from BID to once daily Lantus * ? if this is not lasting the full 24 hours * Do not want to change back to BID until we see a trend * Will instead increase the basal slightly and plan to f/u tomorrow 09/28/16 * Lantus was increased yesterday secondary to elevated fasting BSG * Now fasting is much reduced and concerned it will fall further with continued basal dose * Will plan to reduce back to 25 units * Continue correctional and prandial insulin as is - seem to be appropriate PLAN FOR INPATIENT GLYCEMIC CONTROL: * Decrease Lantus back to 25 units qHS * Continue CF 30 * Continue CR 10 Pharmacy will continue to monitor patient daily and write orders per [facility] inpatient glycemic control protocol. Thanks. Discharge Recommendations: * Compliance issues due to dementia prior to admission * Discharge plans still uncertain - highly recommend that she have assistance with her insulin administration since she was forgetting doses * Would recommend continuing same Levemir dose on discharge but splitting Novolog TID since she eats lunch (would recommend 6 units with each meal and just have her skip if she skips a meal)
[2016-09-28 11:23] VITALS: BP 100/63; PULSE 61; TEMP 36.6; O2SAT 99
[2016-09-28 14:55] VITALS: BP 100/61; PULSE 64; TEMP 36.4; O2SAT 92
--- NOTE | 2016-09-28 16:03 | Progress Note ---
Medicine Progress Note Date & Time of Visit: Sep 28, 2016 at 16:03 . Subjective Anxious to go home. No fever, chest pain, SOB, nausea, vomiting, headache, vertigo. . Objective Last 8 Hrs Date Time Temp Pulse Resp B/P (MAP) Pulse Ox O2 Delivery O2 Flow Rate FiO2 09/28/16 14:55 36.4 64 18 100/61 (74) 92 Room Air 09/28/16 12:30 Room Air 09/28/16 11:23 36.6 61 18 100/63 (75) 99 Room Air Physical Exam: General- sitting in chair; no distress Neck- no JVD Lungs- clear to auscultation Heart- RRR Abdomen- + BS, soft, nontender Extremities- no pretibial edema; no calf tenderness Neuro- alert, oriented to person, hospital, and date (took a little time to figure out the correct date); unable to name her meds; unable to name president . Laboratory Results: Last 24 Hours Test 09/27/16 16:56 09/27/16 20:48 09/28/16 07:17 09/28/16 11:28 Bedside Glucose 133 mg/dl 151 mg/dl 108 mg/dl 143 mg/dl Assessment & Plan ALTERED MENTAL STATUS Head CT showed old lacunar stroke and white matter small vessel ischemic disease , no acute events. Altered mental status may been secondary to metabolic encephalopathy from meclizine, concussion from fall, dehydration, or any combination. Underlying dementia as discussed below. Mental status continues to improve. DEHYDRATION Received IV fluids. Encouraged to avoid overutilization of PRN furosemide. VERTIGO Meclizine could be contributing to confusion, especially if overutilized. Reduce meclizine to 12.5 mg PRN only for clear vertigo. Proper/minimal use emphasized. AMBULATORY DYSFUNCTION Probably multifactorial. Ongoing therapies recommended. Patient refusing inpatient rehabilitation. Skilled care discussed, patient reluctant to consider. Continue PT, OT, ambulation with assistance. CAD No anginal symptoms. Continue aspirin, carvedilol. Patient no longer taking statin due to side effects. CHF History of chronic left ventricular systolic heart failure attributed to ischemic heart disease with LVEF in 40's. Compensated. Continue carvedilol, valsartan, furosemide PRN. HISTORY BRADYCARDIC ARRHYTHMIAS Pacemaker check requested and indicated that battery is nearing end-of-life. Pacemaker was sensing and atrial pacing appropriately. Patient's cardiology clinic in [place] contacted her family and arrangements have been made for generator replacement on 09/29. HYPERTENSION Blood pressures fluctuating, probably partly secondary to anxiety. Continue carvedilol and losartan. DM TYPE 2 Not well-controlled. Hgb A1c 11.1. Compliance at home uncertain. Pharmacy consulted for glycemic management. Lantus + NovoLog per protocol. FBS this morning = 193. DEMENTIA Family has noted progressive memory difficulties. CT demonstrated lacunar strokes and small vessel white matter disease. Suspect Alzheimer's disease and/or vascular dementia. B12 and TSH normal. Medications for dementia may have more adverse reactions benefit; will not initiate at this time. Consider outpatient referral to Neurology. DRIVING SAFETY Advised not to drive because of dementia, vertigo, falls. [employer] form completed. VTE PROPHYLAXIS SQ heparin. Ambulate. DISPOSITION Inpatient rehabilitation or skilled care recommended, but patient declines. Discharge to home with home health services. Medical follow-up with Dr. Gallardo. Follow-up with her network systems consultant in [place]. . Consultants: Pharmacy re: glycemic control . Procedures: CT head IV fluids PT OT . Current Inpatient Medications: Current Inpatient Medications Medications (Trade) Dose Ordered Sig/Lam Route Start Time Stop Time Status Last Admin Dose Admin Heparin Sodium (Porcine) (Heparin Sq 5000 Unit/0.5ml) 5,000 unit Q12 SQ 09/23/16 09:00 10/23/16 08:59 09/28/16 08:09 5,000 UNIT Acetaminophen (Tylenol Tab) 650 mg Q4H PRN PO 09/23/16 05:15 10/23/16 05:14 09/27/16 16:09 650 MG Al Hydrox/Mg Hydrox/Simethicone (Maalox Max Susp) 15 ml Q4H PRN PO 09/23/16 05:15 10/23/16 05:14 Magnesium Hydroxide (Milk Of Magnesia Susp) 30 ml Q12H PRN PO 09/23/16 05:15 10/23/16 05:14 Ondansetron HCl (Zofran Inj) 4 mg Q6H PRN IV 09/23/16 05:15 10/23/16 05:14 Polyethylene (Miralax Powder Packet) 17 gm DAILY PRN PO 09/23/16 05:15 10/23/16 05:14 Glucose (Glucose 40% Gel) 15-30 GRAMS 15 GRAMS... UD PRN PO 09/23/16 05:15 10/23/16 05:14 Glucose (Glucose Chew Tab) 4-8 Tablets 4 Tabl... UD PRN PO 09/23/16 05:15 10/23/16 05:14 Dextrose (Dextrose 50% 50ML Syringe) 25-50ML OF 50% DW IV FOR... UD PRN IV 09/23/16 05:15 10/23/16 05:14 Glucagon (Glucagon Inj) 1 mg UD PRN SQ 09/23/16 05:15 10/23/16 05:14 Miscellaneous Information (Consult Glycemic Management Pharmacy) 1 ea DAILY PRN N/A 09/23/16 05:29 10/23/16 05:28 Aspirin (Ecotrin Tab) 81 mg DAILY PO 09/23/16 09:00 10/23/16 08:59 09/28/16 08:06 81 MG Carvedilol (Coreg Tab) 12.5 mg BID PO 09/23/16 09:00 10/23/16 08:59 09/28/16 08:06 12.5 MG Cetirizine HCl (zyrTEC TAB) 10 mg DAILY PO 09/23/16 09:00 10/23/16 08:59 09/28/16 08:06 10 MG Fluticasone Propionate (Flonase Nasal [place]) 2 sprays DAILY ANDREW 09/23/16 09:00 10/23/16 08:59 09/28/16 08:06 2 SPRAYS Gabapentin (Neurontin Cap) 100 mg BID PO 09/23/16 09:00 10/23/16 08:59 09/28/16 08:06 100 MG Ranitidine HCl (zANTac TAB) 150 mg BID PO 09/23/16 09:00 10/23/16 08:59 09/28/16 08:06 150 MG Valsartan (Diovan Tab) 80 mg DAILY PO 09/23/16 09:00 10/23/16 08:59 09/28/16 08:06 80 MG Insulin Aspart (novoLOG ASPART) SLIDING SCALE If C... ACHS SC 09/24/16 11:00 10/24/16 10:59 09/28/16 12:30 6 UNITS Meclizine HCl (Antivert Tab) 12.5 mg BID PRN PO 09/24/16 20:45 10/24/16 20:44 09/25/16 08:42 12.5 MG Insulin Glargine (Lantus Solostar Pen) 25 unit HS SC 09/28/16 21:00 10/28/16 20:59
[2016-09-28] MEDS ORDERED: ANT25 PO (16:07)
--- NOTE | 2016-09-28 16:18 | Discharge Instructions ---
Discharge Instructions Date of Service Sep 28, 2016. Admission Reason for Admission: confusion, dizziness, falls . Discharge Discharge Diagnosis / Problem: confusion, dizziness, falls Discharge Goals Goal(s): Decrease discomfort, Improve function, Increase independence, Improve disease control Activity Recommendations Activity Limitations: as noted below Driving or Machine Use: no driving . Instructions / Follow-Up Instructions / Follow-Up APPOINTMENTS: CARDIOLOGY Pacemaker replacement in [place] Tuesday09/29/16 as scheduled. FAMILY MEDICINE 10/04/2016 9:30 AM Tushar Castle Jr., PA-C (covering for Dr. Gallardo) INSTRUCTIONS: Be careful not to fall. You were dehydrated when you came to the hospital. Be careful not to take furosemide (Lasix) more than necessary, especially in the summer during hot weather. Meclizine (Antivert) has a lot of side effects. It can make you week and confused. Only take it when absolutely necessary for severe vertigo when things are spinning around. Only take 1/2 pill at a time. Take no more than 2 doses a day. Seek medical attention if you have: * temperature above 101 * chest pain or trouble breathing * severe weakness or lightheadedness * any unanswered questions or concerns Call 911 if symptoms are severe. Call if you have any questions or problems. My cell # is [phone]. You can also reach a [facility] hospitalist on duty at [facility] 24 hours a day by calling [phone]. Please take good care of yourself. Tushar Hutton . Current Hospital Diet Patient's current hospital diet: Diabetes Type 2 Diet, AHA Diet (Heart Healthy) Discharge Diet Recommended Diet: AHA Diet (Heart Healthy), Diabetes Type 2 Diet Pending Studies Studies pending at discharge: no Laboratory Results Hemoglobin A1c Test 09/24/16 07:08 Range/Units Estimated Average Glucose 272 mg/dl Hemoglobin A1c 11.1 H 4.5-5.6 % Medical Emergencies . Who to Call and When: Medical Emergencies: If at any time you feel your situation is an emergency, please call 911 immediately. . Non-Emergent Contact Non-Emergency issues call your: Primary Care Provider, Hospital Doctor . . "Provider Documentation" section prepared by Tushar Hutton. . VTE Core Measure Inpt VTE Proph given/why not?: Unfractionated heparin SQ
[2016-09-28 16:26] VITALS: BP 100/61; PULSE 64; TEMP 36.4; O2SAT 92
--- NOTE | 2016-09-28 16:45 | Discharge Summary ---
Discharge Summary Date of Service Sep 28, 2016. Discharge Summary Admission Date: Sep 23, 2016 at 05:24 Discharge Date: Sep 28, 2016 Discharge Disposition: Home with services Principal Diagnosis: altered mental status . Secondary Diagnoses/Problems: Other Acute Medical Problems: dehydration ambulatory dysfunction Chronic and Resolved Medical Problems: (1) RADHA inhibitor intolerance Status: Chronic (3) Asthma Status: Chronic (4) Benign hypertension Status: Chronic (5) Cardiac pacemaker procedure Status: Chronic (6) Carotid arterial disease Status: Chronic (7) Coronary artery disease Permanent Comment: s/p AL Status: Chronic (8) Dementia Status: Chronic (9) Diabetes mellitus, type 2 Status: Chronic (10) History of bradycardia Status: Chronic (11) PMR (polymyalgia rheumatica) Status: Chronic (12) Statin intolerance Status: Chronic (13) Systolic CHF, chronic Permanent Comment: ischemic cardiomyopathy Status: Chronic Surgical Problems: (1) Status post cardiac pacemaker procedure Status: Chronic (2) Status post cataract extraction Status: Chronic (3) Status post coronary artery bypass grafting Status: Chronic (4) Status post tubal ligation Status: Chronic . Procedures: CT head IV fluids PT OT . Consultations: Pharmacy re: glycemic control . Medication Reconciliation New Medications: Meclizine HCl (Meclizine HCl) 25 Mg Tab 12.5 MG PO Q12 PRN for severe vertigo, #10 TAB 5 Refills Take 1/2 pill as needed when things are spinning around. No more than 2 doses a day. Continued Medications: Albuterol Hfa (Ventolin Hfa) 200 Puffs/31076 Mcg Aers 2 PUFFS INH Q4H PRN for SOB/Wheezing, #1 INHALER Aspirin (Aspirin Ec) 81 Mg Tab 81 MG PO DAILY Carvedilol (Coreg) 12.5 Mg Tab 12.5 MG PO BID, TAB TAKE WITH FOOD Cetirizine (Zyrtec) 10 Mg Tab 10 MG PO DAILY, TAB Fluticasone Propionate (Nasal) (Flonase Allergy Relief) 50 Mcg/Act Spr 2 SPRAYS ANDREW DAILY Furosemide (Lasix) 20 Mg Tab 20 MG PO DAILY PRN for WEIGHT GAIN, TAB Gabapentin (Neurontin) 100 Mg Cap 100 MG PO BID, CAP Insulin Aspart (Novolog) 100 Unit/ Inj 9 UNITS SQ BIDM, BTL BEFORE BREAKFAST AND EVENING MEAL Insulin Detemir (Levemir) 100 Units/Ml Inj 25 UNITS SQ QPM Multiple Vitamin (Multivitamin) 1 Tab Tab 1 TAB PO DAILY, TAB Ranitidine (Zantac) 150 Mg Tab 150 MG PO BID, TAB Valsartan (Diovan) 80 Mg Tab 80 MG PO DAILY, TAB Discontinued Medications: Meclizine Hcl (Meclizine Hcl) 25 Mg Tab 25 MG PO TID PRN for DIZZINESS for 30 Days, #90 TAB Admission Information HPI (per Admitting provider): This is a 75 year old female with a PMH of CAD, ischemic cardiomyopathy with EF ~ 45%, insulin dependent DM2, PMR, HTN, cardiac pacemaker in situ - she lives alone and tells me that she was really weak and dizzy - she could not get up from her bed, so she called 911 and presented here. During interview, she is very confused and cannot answer questions properly - her son is in the room, telling me that this confusion has been going on for a long time. I called patient's older daughter - who states she lives close to her -- she tells me that her mother (the patient) is getting very weak the past few months ; she is forgetful, more confused and having difficulty caring for herself at home. She tells me that she thinks the patient is forgetting to take her medications. . Physical Exam (per Admitting): General Appearance: no apparent distress ENT: + pertinent finding Respiratory/Chest: chest non-tender, lungs clear, normal breath sounds, no respiratory distress, no accessory muscle use Cardiovascular: regular rate, rhythm, no edema, no murmur Abdomen/GI: normal bowel sounds, non tender, soft Extremities/Musculoskelatal: normal capillary refill, no pedal edema Neurologic/Psych: normal mood/affect, + disoriented, + pertinent finding Hospital Course ALTERED MENTAL STATUS Head CT showed old lacunar stroke and white matter small vessel ischemic disease , no acute events. Altered mental status may been secondary to metabolic encephalopathy from meclizine, concussion from fall, dehydration, or any combination. Underlying dementia as discussed below. Mental status continues to improve. DEHYDRATION Received IV fluids. Encouraged to avoid overutilization of PRN furosemide. VERTIGO Meclizine could be contributing to confusion, especially if overutilized. Reduce meclizine to 12.5 mg PRN only for clear vertigo. Proper/minimal use emphasized. AMBULATORY DYSFUNCTION Probably multifactorial. Ongoing therapies recommended. Patient refusing inpatient rehabilitation. Skilled care discussed, patient reluctant to consider. Continue PT, OT, ambulation with assistance. CAD No anginal symptoms. Continue aspirin, carvedilol. Patient no longer taking statin due to side effects. CHF History of chronic left ventricular systolic heart failure attributed to ischemic heart disease with LVEF in 40's. Compensated. Continue carvedilol, valsartan, furosemide PRN. HISTORY BRADYCARDIC ARRHYTHMIAS Pacemaker check requested and indicated that battery is nearing end-of-life. Pacemaker was sensing and atrial pacing appropriately. Patient's cardiology clinic in [place] contacted her family and arrangements have been made for generator replacement on 09/29. HYPERTENSION Blood pressures fluctuating, probably partly secondary to anxiety. Continue carvedilol and losartan. DM TYPE 2 Not well-controlled. Hgb A1c 11.1. Compliance at home uncertain. Pharmacy consulted for glycemic management. Lantus + NovoLog per protocol. FBS this morning = 193. DEMENTIA Family has noted progressive memory difficulties. CT demonstrated lacunar strokes and small vessel white matter disease. Suspect Alzheimer's disease and/or vascular dementia. B12 and TSH normal. Medications for dementia may have more adverse reactions benefit; will not initiate at this time. Consider outpatient referral to Neurology. DRIVING SAFETY Advised not to drive because of dementia, vertigo, falls. [employer] form completed. VTE PROPHYLAXIS SQ heparin. Ambulate. DISPOSITION Inpatient rehabilitation or skilled care recommended, but patient declines. Discharge to home with home health services. Medical follow-up with Dr. Galladro. Follow-up with her lead trainer in [place]. . Total time spent on discharge = 40 min. This includes examination of the patient, discharge planning, medication reconciliation, and communication with other providers. . Discharge Instructions Date of Service Sep 28, 2016. Admission Reason for Admission: confusion, dizziness, falls . Discharge Discharge Diagnosis / Problem: confusion, dizziness, falls Discharge Goals Goal(s): Decrease discomfort, Improve function, Increase independence, Improve disease control Activity Recommendations Activity Limitations: as noted below Driving or Machine Use: no driving . Instructions / Follow-Up Instructions / Follow-Up APPOINTMENTS: CARDIOLOGY Pacemaker replacement in [place] Tuesday09/29/16 as scheduled. FAMILY MEDICINE 10/04/2016 9:30 AM Tushar Castle Jr., PA-C (covering for Dr. Kanarraville) INSTRUCTIONS: Be careful not to fall. You were dehydrated when you came to the hospital. Be careful not to take furosemide (Lasix) more than necessary, especially in the summer during hot weather. Meclizine (Antivert) has a lot of side effects. It can make you week and confused. Only take it when absolutely necessary for severe vertigo when things are spinning around. Only take 1/2 pill at a time. Take no more than 2 doses a day. Seek medical attention if you have: * temperature above 101 * chest pain or trouble breathing * severe weakness or lightheadedness * any unanswered questions or concerns Call 911 if symptoms are severe. Call if you have any questions or problems. My cell # is [phone]. You can also reach a [facility] hospitalist on duty at [facility] 24 hours a day by calling [phone]. Please take good care of yourself. Tushar Hutton . Current Hospital Diet Patient's current hospital diet: Diabetes Type 2 Diet, AHA Diet (Heart Healthy) Discharge Diet Recommended Diet: AHA Diet (Heart Healthy), Diabetes Type 2 Diet Pending Studies Studies pending at discharge: no Laboratory Results Hemoglobin A1c Test 09/24/16 07:08 Range/Units Estimated Average Glucose 272 mg/dl Hemoglobin A1c 11.1 H 4.5-5.6 % Medical Emergencies . Who to Call and When: Medical Emergencies: If at any time you feel your situation is an emergency, please call 911 immediately. . Non-Emergent Contact Non-Emergency issues call your: Primary Care Provider, Hospital Doctor . . "Provider Documentation" section prepared by Tushar Hutton. . VTE Core Measure Inpt VTE Proph given/why not?: Unfractionated heparin SQ Additional Copies To Jp Gallardo D.O.; Tushar Castle
[2016-09-28] MEDS ORDERED: INSULIN GLARGINE SOLOSTAR 100 UNITS/ML 3 ML PEN SC SCH (21:00)
--- NOTE | 2016-10-01 11:59 | EDITING REQUIRED CODING QUERY ---
SUPPORTING DIAGNOSIS NEEDED A supporting diagnosis is required for the test/procedure performed on this patient in order for us to be reimbursed by the patient's insurance. Please provide a supporting diagnosis for the following test/procedure listed below next to the test name along with your signature. *If there is no additional diagnosis for this patient that would support the following test/procedure please document that below next to the test/procedure. Test(s)/Procedure(s) that require a supporting diagnosis: * VITAMIN D, 25- HYDROXY DIAGNOSIS: Ambulatory dysfunction Provider Signature: ____Tushar Hutton Date: _10/03/16__ Thank you Yamila Greene [employer] Information Management Once completed, please kindly fax back to [phone] For questions please call [phone]
== END 2016-09-28 17:10 | disposition home health service (06) ==
LOC: EDBD 02:28 → C.EDA 02:29 → C.MED 05:24 → ENRESERV 06:06
PROVIDERS: ADMIT Family Medicine; ATTEND Hospitalist
DX: R41.82 Altered mental status, unspecified (principal); E86.0 Dehydration; R26.89 Other abnormalities of gait and mobility; J45.909 Unspecified asthma, uncomplicated; I10 Essential (primary) hypertension; I25.10 Atherosclerotic heart disease of native coronary artery without angina pectoris; F03.90 Unspecified dementia, unspecified severity, without behavioral disturbance, psychotic disturbance, mood disturbance, and anxiety; E11.9 Type 2 diabetes mellitus without complications; Z98.49 Cataract extraction status, unspecified eye; Z98.51 Tubal ligation status; Z95.0 Presence of cardiac pacemaker; Z88.0 Allergy status to penicillin; Z79.82 Long term (current) use of aspirin; Z79.4 Long term (current) use of insulin; Z83.3 Family history of diabetes mellitus; Z82.49 Family history of ischemic heart disease and other diseases of the circulatory system; Z84.1 Family history of disorders of kidney and ureter

== ENCOUNTER 2017-03-18 13:03 | Observation (INO) | payer BC ==
[~2017-03-18] VITALS: Ht 147.3 cm; Wt 62.2 kg
[~2017-03-18 13:03] MED LIST changes: +ANT25 PO; -ASPI81TA25 PO; +ASPI81TA28 PO; -CALC500T83 PO; +CETI10TA84 PO; +FLUT0.15 NAE; -INSUINJ4 SQ; -IRON1TAB4 PO; -ISOS60TA PO; +LVMI SQ; +MULTTAB58 PO; -OMEP20TA PO; -TRAM-453 PO; +VNTHFA/IN INH; +ZNTT/150 PO
--- NOTE | 2017-03-18 13:58 | EMERGENCY ROOM VISIT NOTE ---
History First contact with patient: 13:19 Chief Complaint: CHEST PAIN Stated Complaint: PAIN IN LEFT SIDE OF CHEST,WEAKNESS, DIZZINESS Nursing Triage Summary: Chest pain for a few days, left side, this morning called [facility] crying in pain, brought to ED for eval. hx ICD pacemaker History of Present Illness The patient is a 76 year old female PMH significant for CAD, CABG x3, HTN, HLD, DM and dementia comes in with chest pain for two days. Patient is a poor historian and much of the history was provided by the daughter. She report the pain since replacement of her pacemaker in June. She says over the past couple days that the pain has gotten worse. She describes it as a burning sensation over the site of the pacemaker, worse with movement and cough. pain radiates to her left armpit. She does describes a recent cough and dyspnea with exertion. Patient ambulates with a walker and reports that the pain actually improves with activity. She denies diaphoresis, orthopnea, PND, LE swelling, N/V, fever. She does report recent loose stools on Cefdinir. She is taking the abx for a recent UTI. Patient denies hemoptysis or family history of clotting disorder. Review of Systems see below Constitutional: No fever, No chills, No sweats Respiratory: + cough, + sputum, + shortness of breath, + dyspnea on exertion Cardiovascular: + chest pain, No orthopnea, No PND, No edema, No palpitations Abdomen: + diarrhea, No pain, No nausea, No vomiting Past Medical/Surgical History Medical Problems: (1) RADHA inhibitor intolerance (2) Ambulatory dysfunction (3) Asthma (4) Benign hypertension (5) Cardiac pacemaker procedure (6) Carotid arterial disease (7) Chest pain (8) Coronary artery disease (9) Dementia (10) Diabetes mellitus, type 2 (11) History of bradycardia (12) PMR (polymyalgia rheumatica) (13) Statin intolerance (14) Systolic CHF, chronic Surgical Problems: (1) Status post cardiac pacemaker procedure (2) Status post cataract extraction (3) Status post coronary artery bypass grafting (4) Status post tubal ligation Family History Diabetes mellitus Heart disease Hypertension Kidney disease Kidney stones Social History Smoking Status: Never Smoker Marital Status: Housing Status: lives with family Occupation Status: employed Current/Historical Medications Scheduled Aspirin (Aspirin Ec), 81 MG PO DAILY Carvedilol (Coreg), 12.5 MG PO BID Cefdinir (Omnicef), 300 MG PO Q12H Cetirizine (Zyrtec), 10 MG PO DAILY Gabapentin (Neurontin), 100 MG PO BID Insulin Aspart (Novolog Penfill), 9 UNITS SQ BIDM Insulin Detemir (Levemir), 25 UNITS SQ QPM Multiple Vitamin (Multivitamin), 1 TAB PO DAILY Ranitidine (Zantac), 150 MG PO BID Valsartan (Diovan), 80 MG PO DAILY Scheduled PRN Albuterol Hfa (Ventolin Hfa), 2 PUFFS INH Q4H PRN for SOB/Wheezing Furosemide (Lasix), 20 MG PO DAILY PRN for WEIGHT GAIN Physical Exam Vital Signs Date Time Temp Pulse Resp B/P (MAP) Pulse Ox O2 Delivery O2 Flow Rate FiO2 03/18/17 16:20 74 18 116/71 93 Room Air 03/18/17 14:50 70 18 145/74 93 Room Air 03/18/17 14:05 70 03/18/17 13:20 94 Room Air 03/18/17 13:08 36.7 90 18 129/73 100 Room Air Physical Exam see below General Appearance: WD/WN, no apparent distress Head: normocephalic, atraumatic Eyes: normal inspection, PERRL Neck: supple, no adenopathy, no carotid bruits Respiratory/Chest: chest non-tender, lungs clear, normal breath sounds Cardiovascular: regular rate, rhythm, no edema, no gallop, + pertinent finding (tenderness with palpation of the left chest wall, no overlying erythema ) Extremities: normal inspection, no calf tenderness, no pedal edema Neurologic/Psych: + pertinent finding (flat affect) Medical Decision & Procedures ER Provider Diagnostic Interpretation: DIAGNOSTIC IMAGING CHEST ONE VIEW PORTABLE CLINICAL HISTORY: chest pain, cough COMPARISON STUDY: 09/23/2016 FINDINGS: Prior median sternotomy. Bipolar cardiac pacemaker/fibrillator placement. Diaphragms smooth. Lungs are clear. IMPRESSION: No acute process. Laboratory Results 03/18/17 13:27 Red Blood Count 4.27, Mean Corpuscular Volume 89.7, Mean Corpuscular Hemoglobin 30.2, Mean Corpuscular Hemoglobin Concent 33.7, Mean Platelet Volume 10.2, Neutrophils (%) (Auto) 50.2, Lymphocytes (%) (Auto) 39.6, Monocytes (%) (Auto) 7.8, Eosinophils (%) (Auto) 1.7, Basophils (%) (Auto) 0.5, Neutrophils # (Auto) 3.02, Lymphocytes # (Auto) 2.38, Monocytes # (Auto) 0.47, Eosinophils # (Auto) 0.10, Basophils # (Auto) 0.03 03/18/17 13:27 Test 03/18/17 13:27 03/18/17 13:32 White Blood Count 6.01 K/uL (4.8-10.8) Red Blood Count 4.27 M/uL (4.2-5.4) Hemoglobin 12.9 g/dL (12.0-16.0) Hematocrit 38.3 % (37-47) Mean Corpuscular Volume 89.7 fL (80-100) Mean Corpuscular Hemoglobin 30.2 pg (25-34) Mean Corpuscular Hemoglobin Concent 33.7 g/dl (32-36) Platelet Count 255 K/uL (130-400) Mean Platelet Volume 10.2 fL (7.4-10.4) Neutrophils (%) (Auto) 50.2 % Lymphocytes (%) (Auto) 39.6 % Monocytes (%) (Auto) 7.8 % Eosinophils (%) (Auto) 1.7 % Basophils (%) (Auto) 0.5 % Neutrophils # (Auto) 3.02 K/uL (1.4-6.5) Lymphocytes # (Auto) 2.38 K/uL (1.2-3.4) Monocytes # (Auto) 0.47 K/uL (0.11-0.59) Eosinophils # (Auto) 0.10 K/uL (0-0.5) Basophils # (Auto) 0.03 K/uL (0-0.2) RDW Standard Deviation 43.6 fL (36.4-46.3) RDW Coefficient of Variation 13.3 % (11.5-14.5) Immature Granulocyte % (Auto) 0.2 % Immature Granulocyte # (Auto) 0.01 K/uL (0.00-0.02) Anion Gap 7.0 mmol/L (3-11) Est Creatinine Clear Calc Drug Dose 33.9 ml/min Estimated GFR () 56.3 Estimated GFR (Non- 48.5 BUN/Creatinine Ratio 19.6 (10-20) Calcium Level 9.2 mg/dl (8.5-10.1) Beta-Hydroxybutyric Acid 1.73 mg/dL (0.2-2.81) Bedside Troponin I < 0.030 ng/ml (0-0.045) ED Course 1300 History and Physical performed 1315 Ordered labs and test 1400 Reviewed the results 1445 Reaccessed, discussed results with patient and admission 1500 Dr. Grullon discussed admission with the [facility] hospitalist Medical Decision 76 yo female comes into the ED with chest pain. Considering the following differential; ACS, dissection, PE, PNA, myocarditis, costochondritis Patients chest pain is palpable and positional overlying her pacemaker. The pain appears to be ongoing since june when she had her pacemaker replaced. The pain has become more severe over the past 2-3 days. She denies pain with exertion. Initial troponin was negative and CXR was unremarkable. Nonetheless, the patient is a relatively high risk for adverse cardiac events. Patient has a heart score of 4 which correlates with a 12-16% increase in adverse events. Patient has a PMH of Dementia and is a poor historian. Daughter was present during encounter. Patient lives alone and ambulates with assistance of a walker. Patient sees Dr. Cee in [place]. Patient had her pacemaker interrogated in December. She reports no abnormalities. Patient reports loose stools on Cefdinir. Awaiting results of Cdiff. Dr. Grullon spoke on the phone with the hospitalist. Patient is being admitted for a ACS rule out. Impression Primary Impression: Chest pain Departure Information Dispostion Admitted as an inpatient Condition FAIR Referrals Jp Gallardo D.O. (PCP) Patient Instructions [facility]
--- NOTE | 2017-03-18 14:05 | DIAGNOSTIC IMAGING REPORT ---
CHEST ONE VIEW PORTABLE CLINICAL HISTORY: chest pain, cough COMPARISON STUDY: 09/23/2016 FINDINGS: Prior median sternotomy. Bipolar cardiac pacemaker/fibrillator placement. Diaphragms smooth. Lungs are clear. IMPRESSION: No acute process. The above report was generated using voice recognition software. It may contain grammatical, syntax or spelling errors. Electronically signed by: Familia Orellana M.D. 03/18/2017 2:03 PM Dictated Date/Time: 03/18/2017 2:03 PM
[2017-03-18 14:11] LABS: BASO % 0.5 %; BASO ABS # 0.03 K/uL (0-0.2); COMPLETE YES; EOS % 1.7 %; HEMATOCRIT 38.3 % (37-47); IG% 0.2 %; LYMPH % 39.6 %; LYMPH ABS # 2.38 K/uL (1.2-3.4); MEAN CELL VOLUME 89.7 fL (80-100); MEAN CORPUSCULAR HEMOGLOBIN 30.2 pg (25-34); MEAN CORPUSCULAR HGB CONC 33.7 g/dl (32-36); MEAN PLATELET VOLUME 10.2 fL (7.4-10.4); MONO % 7.8 %; NEUT % 50.2 %; PLATELET COUNT 255 K/uL (130-400); RED BLOOD COUNT 4.27 M/uL (4.2-5.4); WHITE BLOOD COUNT 6.01 K/uL (4.8-10.8)
[2017-03-18 14:15] LABS: BLOOD UREA NITROGEN 22 mg/dl (7-18); BUN/CREATININE RATIO 19.6 (10-20); CALCIUM 9.2 mg/dl (8.5-10.1); CARBON DIOXIDE 28 mmol/L (21-32); CHLORIDE 97 mmol/L (98-107); CREATININE 1.11 mg/dl (0.60-1.20); GLUCOSE 330 mg/dl (70-99); SODIUM 132 mmol/L (136-145)
[2017-03-18 14:25] LABS: BETA-HYDROXYBUTYRATE 1.73 mg/dL (0.2-2.81)
[2017-03-18] MEDS ORDERED: CEFD1CAP14 PO (14:57)
[2017-03-18] MEDS ORDERED: INSU1INJ2 SQ (14:57)
--- NOTE | 2017-03-18 17:20 | History and Physical ---
History & Physical Date & Time of Service: Mar 18, 2017 at 17:20 Chief Complaint: Pain In Left Side Of Chest,Weakness, Dizziness Primary Care Physician: Jp Gallardo D.O. History of Present Illness Source: family, hospital records 76 year old female with PMH of DM, HTN, dementia, Pacemaker placed back in June presents to the Emergency Room with complaints of worsening left-sided chest pain that has been going on for about 3 days. Pt is a poor historian due to dementia. Most of the history obtained from the ER chart. Pt said that since after she had the pacemaker placed back in September, she has been having on/off tenderness around the pacemaker area. She said that in the last 3 days pain has gotten worst around the pacemaker area to the axilla region. She describes it as sharp, constant, non radiating, about 6/10. No exacerbating factors. She is currently being treated for a UTI. She denies any fevers, diaphoresis, palpitation and Dizziness. Her pacemaker was interrogated 1 week ago and was functioned properly. Pt said that she does not take her insulin everyday. She does not remember her insulin dose. I tried to call her PCP office to confirm her meds, the office was already closed. Past Medical/Surgical History Medical Problems: (1) RADHA inhibitor intolerance Status: Chronic (2) Ambulatory dysfunction Status: Chronic (3) Asthma Status: Chronic (4) Benign hypertension Status: Chronic (5) Cardiac pacemaker procedure Status: Chronic (6) Carotid arterial disease Status: Chronic (7) Coronary artery disease Permanent Comment: s/p [place] Status: Chronic (8) Dementia Status: Chronic (9) Diabetes mellitus, type 2 Status: Chronic (10) History of bradycardia Status: Chronic (11) PMR (polymyalgia rheumatica) Status: Chronic (12) Statin intolerance Status: Chronic (13) Systolic CHF, chronic Permanent Comment: ischemic cardiomyopathy Status: Chronic Surgical Problems: (1) Status post cardiac pacemaker procedure Status: Chronic (2) Status post cataract extraction Status: Chronic (3) Status post coronary artery bypass grafting Status: Chronic (4) Status post tubal ligation Status: Chronic Family History Diabetes mellitus Heart disease Hypertension Kidney disease Kidney stones Social History Smoking Status: Never Smoker Marital Status: Occupational Status: employed Immunizations History of Influenza Vaccine: Unknown History of Tetanus Vaccine?: UTD History of Pneumococcal: Unknown History of Hepatitis B Vaccine: Unknown Multi-Drug Resistant Organisms History of MDRO: No Allergies Coded Allergies: Penicillins (Verified Allergy, Unknown, ., 03/18/17) Sulfamethoxazole w/Trimethoprim (Unverified Allergy, Unknown, ., 03/18/17) Diclofenac (Verified Adverse Reaction, Intermediate, N/V, 03/18/17) Rosuvastatin (Verified Adverse Reaction, Intermediate, MUSCLE PAIN, ) Fenofibrate (Verified Adverse Reaction, Mild, SORE MOUTH, 03/18/17) Atorvastatin (Verified Adverse Reaction, Unknown, MUSCLE PAIN, 03/18/17) Home Medications Scheduled Aspirin (Aspirin Ec), 81 MG PO DAILY Carvedilol (Coreg), 12.5 MG PO BID Cefdinir (Omnicef), 300 MG PO Q12H Cetirizine (Zyrtec), 10 MG PO DAILY Gabapentin (Neurontin), 100 MG PO BID Insulin Aspart (Novolog Penfill), 9 UNITS SQ BIDM Insulin Detemir (Levemir), 25 UNITS SQ QPM Multiple Vitamin (Multivitamin), 1 TAB PO DAILY Ranitidine (Zantac), 150 MG PO BID Valsartan (Diovan), 80 MG PO DAILY Scheduled PRN Albuterol Hfa (Ventolin Hfa), 2 PUFFS INH Q4H PRN for SOB/Wheezing Furosemide (Lasix), 20 MG PO DAILY PRN for WEIGHT GAIN Review of Systems Constitutional: No chills, No weakness Eyes: No eye pain, No redness ENT: No nasal symptoms, No sore throat Respiratory: + cough, No shortness of breath Cardiovascular: + chest pain, No palpitations Abdomen: + diarrhea, No pain, No vomiting Genitourinary - Female: No dysuria Neurologic: No paralysis Psychiatric: No substance abuse Endocrine: No excessive thirst Hematologic / Lymphatic: No clotting problems Integumentary: No rash, No itch Physical Exam Vital Signs Date Time Temp Pulse Resp B/P (MAP) Pulse Ox O2 Delivery O2 Flow Rate FiO2 03/18/17 16:20 74 18 116/71 93 Room Air 03/18/17 14:50 70 18 145/74 93 Room Air 03/18/17 14:05 70 03/18/17 13:20 94 Room Air 03/18/17 13:08 36.7 90 18 129/73 100 Room Air General Appearance: WD/WN, no apparent distress Head: normocephalic, atraumatic Eyes: PERRL, EOMI ENT: hearing grossly normal Neck: supple, no JVD Respiratory/Chest: no respiratory distress, no accessory muscle use Cardiovascular: regular rate, rhythm, no JVD Abdomen/GI: non tender, soft Back: no CVA tenderness Extremities/Musculoskelatal: no calf tenderness Neurologic/Psych: no motor/sensory deficits, alert, normal mood/affect Skin: warm/dry, no rash Diagnostics Laboratory Results Results Past 24 Hours Test 03/18/17 13:27 03/18/17 13:32 Range/Units White Blood Count 6.01 4.8-10.8 K/uL Red Blood Count 4.27 4.2-5.4 M/uL Hemoglobin 12.9 12.0-16.0 g/dL Hematocrit 38.3 37-47 % Mean Corpuscular Volume 89.7 80-100 fL Mean Corpuscular Hemoglobin 30.2 25-34 pg Mean Corpuscular Hemoglobin Concent 33.7 32-36 g/dl Platelet Count 255 130-400 K/uL Mean Platelet Volume 10.2 7.4-10.4 fL Neutrophils (%) (Auto) 50.2 % Lymphocytes (%) (Auto) 39.6 % Monocytes (%) (Auto) 7.8 % Eosinophils (%) (Auto) 1.7 % Basophils (%) (Auto) 0.5 % Neutrophils # (Auto) 3.02 1.4-6.5 K/uL Lymphocytes # (Auto) 2.38 1.2-3.4 K/uL Monocytes # (Auto) 0.47 0.11-0.59 K/uL Eosinophils # (Auto) 0.10 0-0.5 K/uL Basophils # (Auto) 0.03 0-0.2 K/uL RDW Standard Deviation 43.6 36.4-46.3 fL RDW Coefficient of Variation 13.3 11.5-14.5 % Immature Granulocyte % (Auto) 0.2 % Immature Granulocyte # (Auto) 0.01 0.00-0.02 K/uL Sodium Level 132 136-145 mmol/L Potassium Level 4.0 3.5-5.1 mmol/L Chloride Level 97 98-107 mmol/L Carbon Dioxide Level 28 21-32 mmol/L Anion Gap 7.0 3-11 mmol/L Blood Urea Nitrogen 22 7-18 mg/dl Creatinine 1.11 0.60-1.20 mg/dl Est Creatinine Clear Calc Drug Dose 33.9 ml/min Estimated GFR () 56.3 Estimated GFR (Non- 48.5 BUN/Creatinine Ratio 19.6 10-20 Random Glucose 330 70-99 mg/dl Calcium Level 9.2 8.5-10.1 mg/dl Troponin I < 0.015 0-0.045 ng/ml Beta-Hydroxybutyric Acid 1.73 0.2-2.81 mg/dL Bedside Troponin I < 0.030 0-0.045 ng/ml Diagnostic Radiology [~ rep ct add3]] CHEST ONE VIEW PORTABLE CLINICAL HISTORY: chest pain, cough COMPARISON STUDY: 09/23/2016 FINDINGS: Prior median sternotomy. Bipolar cardiac pacemaker/fibrillator placement. Diaphragms smooth. Lungs are clear. IMPRESSION: No acute process. The above report was generated using voice recognition software. It may contain grammatical, syntax or spelling errors. Electronically signed by: Familia Orellana M.D. 03/18/2017 2:03 PM Dictated Date/Time: 03/18/2017 2:03 PM Impression Assessment and Plan Chest Pain Mostly atypical from chest wall tenderness from the pacemaker Need to R/o ACS 1st troponin negative EKG showed paced with no ischemic changes Pacemaker was interrogated about 1 week ago as per ER documentation Will follow cardiac marker Check Echo Cardiology consult Aspirin/ carvedilol Allergies with Statin (from allergies meds list) Monitor in telemetry DM type 2 BS elevated Does not take her insulin everyday as per patient Will call PCP to verify insulin dose Will check Hba1c On Levemir continue Insulin coverage UTI Continue abx with cefdinir HTN Continue carvedilol Resume Valsartan tomorrow Pacemaker placement Pacemaker was interrogated about 1 week ago as per ER documentation Will interrogate again DVT px on Lovenox subq CODE STATUS FULL CODE Level of Care Telemetry Resuscitation Status FULL RESUSCITATION VTE Prophylaxis VTE Risk Assessment Done? Y/N: Yes Risk Level: Moderate Given or contraindicated: Enoxaparin (Lovenox)SQ
[2017-03-18] MEDS ORDERED: GLUCOSE 40% GEL 15 GM TUBE PO PRN (17:30)
[2017-03-18] MEDS ORDERED: GLUCAGON FOR INJ 1 MG VIAL SQ PRN (17:30)
[2017-03-18] MEDS ORDERED: DEXTROSE 50% 50 ML SYR IV PRN (17:30)
[2017-03-18] MEDS ORDERED: GLUCOSE 10 TABS/TUBE PO PRN (17:30)
--- NOTE | 2017-03-18 17:38 | EMERGENCY ROOM VISIT NOTE ---
History Report prepared by Shruti: Rajendra Harper Under the Supervision of: Dr. Miguel Grullon M.D. First contact with patient: 13:19 Chief Complaint: CHEST PAIN Stated Complaint: PAIN IN LEFT SIDE OF CHEST,WEAKNESS, DIZZINESS Nursing Triage Summary: Chest pain for a few days, left side, this morning called DTR crying in pain, brought to ED for eval. hx ICD pacemaker History of Present Illness The patient is a 76 year old female who presents to the Emergency Room with complaints of worsening left-sided chest pain that began 3-4 days ago. She rates her pain a 5/10 in severity. Her pain is radiating into her left armpit. She has a past medical history of CAD, DE, CABGx3, diabetes, hypertension, hyperlipidemia, dementia, and a pacemaker placed. Since she had her pacemaker placed in June of this year, she has been having mild left sided chest pain over her pacemaker. However, over the past couple of days, her pain has worsened with the radiation into her armpit. Her pain worsened significantly this morning. Nothing exacerbates her pain. She states that exertion makes her pain better. However, when she exerts herself she become short of breath which is typical for her. She notes that she has had a mild cough with loose stools recently. She is currently being treated for a UTI. She denies any fevers, diaphoresis, leg swelling, or any other abnormal symptoms. Her pacemaker was interrogated 1 week ago, with no problem being appreciated. Source of History: patient Onset: 3-4 days ago Position: chest (left) Symptom Intensity: 5/10 Quality: sharp Timing: worsening Modifying Factors (Relieving): exertion Associated Symptoms: + cough, No fevers, No diaphoresis Note: Her pain is radiating into her left arm pit. Review of Systems See HPI for pertinent positives & negatives. A total of 10 systems reviewed and were otherwise negative. Past Medical & Surgical Medical Problems: (1) RADHA inhibitor intolerance (2) Ambulatory dysfunction (3) Asthma (4) Benign hypertension (5) Cardiac pacemaker procedure (6) Carotid arterial disease (7) Chest pain (8) Coronary artery disease (9) Dementia (10) Diabetes mellitus, type 2 (11) History of bradycardia (12) PMR (polymyalgia rheumatica) (13) Statin intolerance (14) Systolic CHF, chronic Surgical Problems: (1) Status post cardiac pacemaker procedure (2) Status post cataract extraction (3) Status post coronary artery bypass grafting (4) Status post tubal ligation Family History Diabetes mellitus Heart disease Hypertension Kidney disease Kidney stones Social History Smoking Status: Never Smoker Marital Status: Housing Status: lives with family Occupation Status: employed Current/Historical Medications Scheduled Aspirin (Aspirin Ec), 81 MG PO DAILY Carvedilol (Coreg), 12.5 MG PO BID Cefdinir (Omnicef), 300 MG PO Q12H Cetirizine (Zyrtec), 10 MG PO DAILY Gabapentin (Neurontin), 100 MG PO BID Insulin Aspart (Novolog Penfill), 9 UNITS SQ BIDM Insulin Detemir (Levemir), 25 UNITS SQ QPM Multiple Vitamin (Multivitamin), 1 TAB PO DAILY Ranitidine (Zantac), 150 MG PO BID Valsartan (Diovan), 80 MG PO DAILY Scheduled PRN Albuterol Hfa (Ventolin Hfa), 2 PUFFS INH Q4H PRN for SOB/Wheezing Furosemide (Lasix), 20 MG PO DAILY PRN for WEIGHT GAIN Allergies Coded Allergies: Penicillins (Verified Allergy, Unknown, ., 03/18/17) Sulfamethoxazole w/Trimethoprim (Unverified Allergy, Unknown, ., 03/18/17) Diclofenac (Verified Adverse Reaction, Intermediate, N/V, 03/18/17) Rosuvastatin (Verified Adverse Reaction, Intermediate, MUSCLE PAIN, ) Fenofibrate (Verified Adverse Reaction, Mild, SORE MOUTH, 03/18/17) Atorvastatin (Verified Adverse Reaction, Unknown, MUSCLE PAIN, 03/18/17) Physical Exam Vital Signs Date Time Temp Pulse Resp B/P (MAP) Pulse Ox O2 Delivery O2 Flow Rate FiO2 03/18/17 16:20 74 18 116/71 93 Room Air 03/18/17 14:50 70 18 145/74 93 Room Air 03/18/17 14:05 70 03/18/17 13:20 94 Room Air 03/18/17 13:08 36.7 90 18 129/73 100 Room Air Physical Exam Constitutional: Vital signs reviewed. Eyes: Pupils are equal round reactive to light. Conjunctiva are noninjected. ENT: Pharynx is clear without erythema or exudate. Mucous membranes are moist. Neck supple without meningeal signs. Respiratory: Clear to auscultation bilaterally. Breath sounds are equal bilaterally. Cardiovascular: Regular rate and rhythm. No rubs or gallops. GI: Soft, nondistended and nontender. Bowel sounds are present. Musculoskeletal: No erythema or swelling over the pacemaker site on the left side of the chest. No peripheral edema. No lower extremity tenderness. Integumentary: No cyanosis. Neurological: The patient is awake and alert. No focal deficits. Psychiatric: Normal affect. Medical Decision & Procedures ER Provider Diagnostic Interpretation: Radiology results as stated below per my review and the radiologist's interpretation: CHEST ONE VIEW PORTABLE CLINICAL HISTORY: chest pain, cough COMPARISON STUDY: 09/23/2016 FINDINGS: Prior median sternotomy. Bipolar cardiac pacemaker/fibrillator placement. Diaphragms smooth. Lungs are clear. IMPRESSION: No acute process. The above report was generated using voice recognition software. It may contain grammatical, syntax or spelling errors. Electronically signed by: Familia Orellana M.D. 03/18/2017 2:03 PM Dictated Date/Time: 03/18/2017 2:03 PM Laboratory Results 03/18/17 13:27 Red Blood Count 4.27, Mean Corpuscular Volume 89.7, Mean Corpuscular Hemoglobin 30.2, Mean Corpuscular Hemoglobin Concent 33.7, Mean Platelet Volume 10.2, Neutrophils (%) (Auto) 50.2, Lymphocytes (%) (Auto) 39.6, Monocytes (%) (Auto) 7.8, Eosinophils (%) (Auto) 1.7, Basophils (%) (Auto) 0.5, Neutrophils # (Auto) 3.02, Lymphocytes # (Auto) 2.38, Monocytes # (Auto) 0.47, Eosinophils # (Auto) 0.10, Basophils # (Auto) 0.03 03/18/17 13:27 Test 03/18/17 13:27 03/18/17 13:32 White Blood Count 6.01 K/uL (4.8-10.8) Red Blood Count 4.27 M/uL (4.2-5.4) Hemoglobin 12.9 g/dL (12.0-16.0) Hematocrit 38.3 % (37-47) Mean Corpuscular Volume 89.7 fL (80-100) Mean Corpuscular Hemoglobin 30.2 pg (25-34) Mean Corpuscular Hemoglobin Concent 33.7 g/dl (32-36) Platelet Count 255 K/uL (130-400) Mean Platelet Volume 10.2 fL (7.4-10.4) Neutrophils (%) (Auto) 50.2 % Lymphocytes (%) (Auto) 39.6 % Monocytes (%) (Auto) 7.8 % Eosinophils (%) (Auto) 1.7 % Basophils (%) (Auto) 0.5 % Neutrophils # (Auto) 3.02 K/uL (1.4-6.5) Lymphocytes # (Auto) 2.38 K/uL (1.2-3.4) Monocytes # (Auto) 0.47 K/uL (0.11-0.59) Eosinophils # (Auto) 0.10 K/uL (0-0.5) Basophils # (Auto) 0.03 K/uL (0-0.2) RDW Standard Deviation 43.6 fL (36.4-46.3) RDW Coefficient of Variation 13.3 % (11.5-14.5) Immature Granulocyte % (Auto) 0.2 % Immature Granulocyte # (Auto) 0.01 K/uL (0.00-0.02) Anion Gap 7.0 mmol/L (3-11) Est Creatinine Clear Calc Drug Dose 33.9 ml/min Estimated GFR () 56.3 Estimated GFR (Non- 48.5 BUN/Creatinine Ratio 19.6 (10-20) Calcium Level 9.2 mg/dl (8.5-10.1) Troponin I < 0.015 ng/ml (0-0.045) Beta-Hydroxybutyric Acid 1.73 mg/dL (0.2-2.81) Bedside Troponin I < 0.030 ng/ml (0-0.045) Laboratory results as reviewed by me. ECG Indication: chest pain Rate (beats per minute): 78 Rhythm: other (Atrial sensed ventricularly paced rhythm) Findings: no ectopy, other (QRS of 144 ms) ED Course 1319: The patient was evaluated in room C12B. A complete history and physical exam was performed. 1500: I spoke with Dr. Jeong of [facility]ist service. We discussed the patient and her results. The patient will be further evaluated by her. Medical Decision This is a 76-year-old female who presents with chest pain. Differential diagnosis includes unstable angina, DE, pleurisy, GERD, pneumonia. I did perform a limited focused review of portions of the patient's old chart on the electronic medical record. The patient has had no recent pertinent visits to this hospital. I did evaluate the patient as noted above. IV access was established. The patient was placed on a continuous home specialist. I did order and personally review the patient's 12-lead EKG and chest x-ray as described above. I did order and review the patient's blood work as noted in the electronic medical record. Troponin is negative. The test results were discussed with the patient. It was recommended that she be hospitalized for repeat cardiac enzymes and further evaluation. The case was discussed with the hospitalist and nurse outreach case manager. Resident Physician Supervision Note: I did evaluate and examine this patient myself. I did guide management for the patient. I agree with the resident's [Dr. Garcia] assessment as discussed. Please see the resident's dictation for further details. Medication Reconcilliation Current Medication List: was personally reviewed by me Blood Pressure Screening Patient's blood pressure: Elevated blood pressure Blood pressure disposition: Elevated BP felt to be situational Consults Time Called: 1455 Consulting Physician: Dr. Jean-Paul De La Garza Hospitalist Returned Call: 1500 We discussed the patient and her results. The patient will be further evaluated by her. Impression Primary Impression: Left sided chest pain Scribe Attestation The scribe's documentation has been prepared under my direct and personally reviewed by me in its entirety. I confirm that the note above accurately reflects all work, treatment, procedures, and medical decision making performed by me. Departure Information Dispostion Being Evaluated By Hospitalist Referrals Jp Gallardo D.O. (PCP) Patient Instructions [facility]
[2017-03-18 20:25] VITALS: BP 154/79; PULSE 61; TEMP 36.5; O2SAT 96; BMI 27.7
[2017-03-18 20:49] LABS: INR 0.9 (0.9-1.1); PROTHROMBIN TIME (PATIENT) 9.6 SECONDS (9.0-12.0)
[2017-03-18] MEDS ORDERED: INSULIN DETEMIR FLEXPEN/FLEX TOUCH 100 UNITS/ML 3ML SC SCH (21:00)
[2017-03-18] MEDS: RANITIDINE HCL 150 MG TAB PO SCH (22:01)
[2017-03-18] MEDS: GABAPENTIN 100 MG CAP PO SCH (22:02)
[2017-03-18] MEDS: CARVEDILOL 12.5 MG TAB PO SCH (22:02)
[2017-03-18] MEDS: INSULIN ASPART 100 UNITS/ML 3 ML PEN SC SCH (22:04)
[2017-03-18 23:45] VITALS: BP 97/51; PULSE 66; TEMP 36.9; O2SAT 97
[2017-03-19] VITALS (9 sets, daily range): BP systolic 110–129; BP diastolic 55–74; PULSE 61–82; TEMP 36.4–36.8; O2SAT 96–99
[2017-03-19 08:08] LABS: BUN/CREATININE RATIO 19.3 (10-20); CALCIUM 8.7 mg/dl (8.5-10.1); CREATININE 0.84 mg/dl (0.60-1.20); POTASSIUM 3.7 mmol/L (3.5-5.1)
[2017-03-19 08:17] LABS: ESTIMATED AVERAGE GLUCOSE 341 mg/dl; HA1C FLAG Normal (Normal)
[2017-03-19] MEDS: INSULIN ASPART 100 UNITS/ML 3 ML PEN SC SCH ×4 (08:28→20:31)
[2017-03-19] MEDS: RANITIDINE HCL 150 MG TAB PO SCH ×2 (08:33→20:32)
[2017-03-19] MEDS: GABAPENTIN 100 MG CAP PO SCH ×2 (08:33→20:32)
[2017-03-19] MEDS: CARVEDILOL 12.5 MG TAB PO SCH ×2 (08:33→20:32)
[2017-03-19] MEDS: CETIRIZINE HCL 10 MG TAB PO SCH (08:33)
[2017-03-19] MEDS: ASPIRIN 81 MG ECTAB PO SCH (08:33)
[2017-03-19] MEDS ORDERED: ENOXAPARIN 40 MG/0.4 ML SYR SQ SCH (09:00)
[2017-03-19] MEDS: CEFDINIR 300 MG CAP PO SCH ×2 (09:57→20:32)
[2017-03-19] MEDS: ENOXAPARIN 30 MG/0.3 ML SYR SQ SCH (09:58)
--- NOTE | 2017-03-19 13:16 | ECHOCARDIOGRAM REPORT ---
*NOTICE TO RECEIVING LIBERTARIAN AGENCY This information is strictly Confidential and protected under [place] law. [place] law prohibits you from making any further disclosure of this information unless further disclosure is expressly permitted by the written consent of the person to whom it pertains or is authorized by law. A general authorization for the release of medical or other information is not sufficient for this purpose. Hospital accepts no responsibility if the information is made available to any other person, INCLUDING THE PATIENT. Interpretation Summary * Name: PREM ZAPATA Study Date: 03/19/2017 09:11 AM BP: 152/80 mmHg * Patient Location: C.2T\S\S242\S\2 HR: 65 * : 1940 (M/d/yyyy) Gender: Female Height: 64 in * Age: 76 yrs Ethnicity: [place] Weight: 134 lb * Ordering Physician: Awa Iqbal * Referring Physician: Self, Referred * Performed By: Cristiano Purvis RDCS * * Reason For Study: Cerebral ischemia/embolus * BSA: 1.6 m2 * -- Conclusions -- * The left ventricle is normal in size. * There is moderate concentric left ventricular hypertrophy. * There is mild basal inferior wall hypokinesis. * Ejection Fraction = 55-60%. * Grade I diastolic dysfunction, (abnormal relaxation pattern). * There is no significant valvular disease * There is no pericardial effusion. Procedure Details * A complete two-dimensional transthoracic echocardiogram was performed (2D, M-mode, Doppler and color flow Doppler). * The study was technically adequate. Left Ventricle * The left ventricle is normal in size. * There is moderate concentric left ventricular hypertrophy. * Left ventricular systolic function is normal. * Ejection Fraction = 55-60%. * There is mild inferior wall hypokinesis. Right Ventricle * The right ventricle is normal in size and function. * There is a pacemaker lead in the right ventricle. Atria * The left atrial size is normal. * Right atrial size is normal. * No ASD detected; PFO is not assessed. * The atrial septum is aneurysmal. Mitral Valve * The mitral valve is normal. * There is no mitral valve stenosis. * There is trace mitral regurgitation. Tricuspid Valve * The tricuspid valve is normal. * There is no tricuspid stenosis. * There is trace tricuspid regurgitation. Aortic Valve * The aortic valve is trileaflet. * No hemodynamically significant valvular aortic stenosis. * No aortic regurgitation is present. Pulmonic Valve * The pulmonic valve is not well visualized. Great Vessels * The aortic root is normal size. Pericardium/Pleural * There is no pericardial effusion. Great Vessels * Normal inferior vena cava diameter and respiratory variation suggests normal central venous pressure. Left Ventricular Diastolic Function * Grade I diastolic dysfunction, (abnormal relaxation pattern). MMode 2D Measurements and Calculations IVSd 1.3 cm IVSs 1.9 cm LVIDd 4.8 cm LVIDs 3.4 cm LVPWd 1.4 cm LVPWs 1.9 cm IVS/LVPW 0.95 FS 28.4 % EDV(Teich) 105.6 ml ESV(Teich) 47.9 ml EF(Teich) 54.7 % EDV(cubed) 108.1 ml ESV(cubed) 39.7 ml EF(cubed) 63.2 % % IVS thick 45.3 % % LVPW thick 39.5 % LV mass(C)d 253.3 grams LV mass(C)dI 153.5 grams/m\S\2 LV mass(C)s 280.9 grams LV mass(C)sI 170.2 grams/m\S\2 SV(Teich) 57.8 ml SI(Teich) 35.0 ml/m\S\2 SV(cubed) 68.3 ml SI(cubed) 41.4 ml/m\S\2 EPSS 0.89 cm Ao root diam 2.7 cm Ao root area 5.7 cm\S\2 ACS 1.8 cm LA dimension 4.1 cm asc Aorta Diam 3.4 cm LA/Ao 1.5 LVOT diam 2.0 cm LVOT area 3.1 cm\S\2 LVAd ap4 22.6 cm\S\2 LVLd ap4 7.2 cm EDV(MOD-sp4) 59.2 ml EDV(sp4-el) 60.0 ml LVAs ap4 14.2 cm\S\2 LVLs ap4 6.0 cm ESV(MOD-sp4) 29.6 ml ESV(sp4-el) 28.6 ml EF(MOD-sp4) 50.0 % EF(sp4-el) 52.4 % LVAd ap2 17.9 cm\S\2 LVLd ap2 6.2 cm EDV(MOD-sp2) 43.6 ml EDV(sp2-el) 43.5 ml LVAs ap2 11.3 cm\S\2 LVLs ap2 6.0 cm ESV(MOD-sp2) 18.5 ml ESV(sp2-el) 17.9 ml EF(MOD-sp2) 57.6 % EF(sp2-el) 58.9 % LVLd %diff -16.21 % EDV(MOD-bp) 54.3 ml LVLs %diff 0.81 % ESV(MOD-bp) 22.7 ml EF(MOD-bp) 58.1 % SV(MOD-sp4) 29.6 ml SI(MOD-sp4) 17.9 ml/m\S\2 SV(MOD-sp2) 25.1 ml SI(MOD-sp2) 15.2 ml/m\S\2 SV(MOD-bp) 31.6 ml SI(MOD-bp) 19.1 ml/m\S\2 SV(sp4-el) 31.4 ml SI(sp4-el) 19.1 ml/m\S\2 SV(sp2-el) 25.6 ml SI(sp2-el) 15.5 ml/m\S\2 Doppler Measurements and Calculations MV E max virginia 60.9 cm/sec MV A max virginia 83.6 cm/sec MV E/A 0.73 MV dec time 0.20 sec Ao V2 max 112.1 cm/sec Ao max PG 5.0 mmHg Ao max PG (full) 2.8 mmHg BRYANT(V,A) 2.1 cm\S\2 BRYANT(V,D) 2.1 cm\S\2 LV V1 max PG 2.3 mmHg LV V1 max 75.5 cm/sec PA V2 max 85.4 cm/sec PA max PG 2.9 mmHg PI end-d virginia 73.4 cm/sec TR max virginia 218.8 cm/sec
[2017-03-19] MEDS ORDERED: PHARMACY GLYCEMIC MGMT CONSULT PRN (13:19)
[2017-03-19] MEDS ORDERED: INSULIN ASPART 100 UNITS/ML 3 ML PEN SC ONE (14:30)
[2017-03-19] MEDS ORDERED: INSULIN HUMAN REGULAR PER UNIT 5 UNITS in SYRINGE 4.95 ML IV ONE (14:30)
--- NOTE | 2017-03-19 14:34 | Pharmacy Progress Note ---
Pharmacy Glycemic Short Note 2 Date of Service Mar 19, 2017. OUTPATIENT ANTIDIABETIC REGIMEN: * Levemir 25 units SQ qPM + Novolog 9 units BIDM * A1c 13.5 % (increased from 11.1% on 09/24/16) ASSESSMENT: * 76 yo T2DM female with poor outpatient glycemic control d/t non-compliance with insulin regimen. * The patient received 10 units of Lantus last evening with fasting BSG today of 199 mg/dL. Will increase Lantus to wt/stress 2. * A regular IV insulin bolus will be given for severe hyperglycemia; most recent BSG 324 mg/dL. * Tighten CF/CR and lower goal range (will keep low end of goal range slighter higher than usual - I expect pt to have a lower threshold for hypoglycemia since A1c is 13.55) PLAN FOR INPATIENT GLYCEMIC CONTROL: * Regular IV insulin 5 unit bolus x 1 * Basal insulin - increase * Lantus 25 units SQ now * Further Lantus ordered will be determined on 03/20 * Bolus insulin - tighten * NovoLog per scale ACHS or Q6hrs while NPO * Goal Range: Low 120 mg/dL - High 160 mg/dL * Correction Factor: 25 mg/dL/unit * Nutritional / Prandial insulin per carb ratio of 1 unit per 9 grams CHO consumed * Add overnight check at 0200 Thank you.
[2017-03-19] MEDS ORDERED: INSULIN DETEMIR FLEXPEN/FLEX TOUCH 100 UNITS/ML 3ML SC ONE (15:00)
--- NOTE | 2017-03-19 15:09 | CARDIOLOGY CONSULTATION ---
DATE OF CONSULTATION: 03/19/2017 REFERRING PHYSICIAN: Dr. Iqbal. INDICATIONS: Left arm and shoulder pain around pacemaker site. HISTORY OF PRESENT ILLNESS: The patient is a 76-year-old female, extremely poor historian with a data gathered by review of charts, discussion with the patient as well as review of past hospitalization in September and outpatient records. She carries a history of atherosclerotic coronary artery disease, status post coronary bypass grafting x2 for multivessel disease in 2007, receiving a KOWALSKI graft to the LAD and a saphenous vein graft to the posterior descending artery with subsequent later documentation 2 years post-procedure of vein graft occlusion. The patient carries a history of prior pacemaker insertion with generator exchange and upgraded to biventricular device in 2016. Underlying medical problems also include atherosclerotic carotid disease status post left carotid artery stenting in 2009, hypertension, dyslipidemia and vascular dementia. The patient presents today noting having symptoms of sharp jabbing pain in her arm and chest, especially when lying on her side at night, ever since her pacemaker was changed, this was done in September of this year per review of records. She currently is without complaint or discomfort. Notes no dizziness or lightheadedness. Notes no signs or symptoms of orthopnea. Notes no bleeding difficulties, is rather poor historian but overall notes no overt declines other than difficulties with memory and mentation. REVIEW OF SYSTEMS: Otherwise unobtainable. ALLERGIES: LISTED ATORVASTATIN, DICLOFENAC, FENOFIBRATE, PENICILLIN, ROSUVASTATIN, SULFAMETHIZOLE WITH TRIAMTERENE. MEDICATIONS: Prior to hospitalization were albuterol inhaler, aspirin 81 mg per day, carvedilol 12.5 b.i.d., Omnicef, cetirizine, furosemide p.r.n. weight gain, gabapentin 100 mg b.i.d., insulin, ranitidine, valsartan. PAST SURGICAL HISTORY: As described notable for prior coronary bypass grafting x2. Prior carotid artery stenting, prior pacemaker insertion and upgraded defibrillator with recent event on device exchange with biventricular defibrillator in place per report in September of 2016. She has also undergone prior cataract extraction and prior tubal ligation. FAMILY HISTORY: Noncontributory. SOCIAL HISTORY: The patient is a nonsmoker, nondrinker. She lives in [place]. PHYSICAL EXAMINATION: VITAL SIGNS: Heart rate is 61, blood pressure is 110/55, O2 saturations 96% on room air. HEENT: Normocephalic, atraumatic. Nares without discharge. Throat was clear. NECK: Supple without thyromegaly or lymphadenopathy. There are no carotid bruit audible today. LUNGS: Reveal diminished breath sounds but are predominantly clear. CARDIOVASCULAR: Regular with normal S1, S2. There is a less than grade 1/6 systolic murmur. Pacemaker sites without distinct tenderness. ABDOMEN: Soft, nontender. EXTREMITIES: Without cyanosis or clubbing. There is no peripheral edema. LABORATORY DATA: EKG reveals atrial sensing with biventricular pacing. LABORATORY STUDIES: White cell count 6.0, hemoglobin is 12.9. Sodium is 137, potassium is 3.7, chloride is 26, bicarbonate is 26, BUN 16, creatinine 0.8. Troponins are negative. IMPRESSION: A 76-year-old female with significant vascular dementia, history of ischemic heart disease, prior pacer defibrillator implantation. I have reviewed records and symptoms, she complains of intermittent jabbing sensation and pain in her left axillary area, most prominently since generator exchange in September of this year, though patient not specific on dates. Echocardiogram today demonstrates moderate left ventricular hypertrophy with normal left ventricular systolic function. In review of all records and things past, appears at the time of last pacemaker interrogation prior to her most recent generator exchange, her left ventricular lead was disabled. On current EKGs that she is now having biventricular pacing. Once again, I suspect patient is getting diaphragmatic and chest wall stimulation from a left lateral lead as the cause of the patient's symptoms and suspect this is probably why it was disabled at one point in time. Given preserved LV systolic function on echocardiogram today, would once again recommend disabling left lateral lead. This can be done through her inserting physician's office. JOSÉ ANTONIO
--- NOTE | 2017-03-19 19:00 | Progress Note ---
Medicine Progress Note Date & Time of Visit: Mar 19, 2017 at 12:36. Subjective Pt was seen and examined Sitting at the edge of the bed with no distress Pt said that she does not have any chest pain today She said that she feels better today Denies any chest pain, palpitation, dizziness and SOB Objective Last 8 Hrs Date Time Temp Pulse Resp B/P (MAP) Pulse Ox O2 Delivery O2 Flow Rate FiO2 03/19/17 16:24 36.8 70 18 126/69 (88) 96 03/19/17 16:00 96 Room Air 03/19/17 12:02 96 Room Air 03/19/17 11:53 36.5 61 20 110/55 (73) 97 Room Air Physical Exam: General- No discharge Head- atraumatic Eyes- PERRL, EOMI ENT- oropharynx clear Neck- supple, no JVD Lungs- clear to auscultation Heart- regular rhythm Abdomen- normal bowel sounds, soft Extremities-no calf tenderness Neuro- alert, oriented, PERRL, EOMI Skin- warm & dry Laboratory Results: Last 24 Hours Test 03/18/17 20:20 03/18/17 20:58 03/19/17 01:31 03/19/17 07:05 Prothrombin Time 9.6 SECONDS Prothromb Time International Ratio 0.9 Troponin I < 0.015 ng/ml < 0.015 ng/ml Bedside Glucose 293 mg/dl Sodium Level 137 mmol/L Potassium Level 3.7 mmol/L Chloride Level 103 mmol/L Carbon Dioxide Level 26 mmol/L Anion Gap 8.0 mmol/L Blood Urea Nitrogen 16 mg/dl Creatinine 0.84 mg/dl Est Creatinine Clear Calc Drug Dose 45.2 ml/min Estimated GFR () 78.8 Estimated GFR (Non- 68.0 BUN/Creatinine Ratio 19.3 Random Glucose 208 mg/dl Estimated Average Glucose 341 mg/dl Hemoglobin A1c 13.5 % Calcium Level 8.7 mg/dl Test 03/19/17 07:13 03/19/17 10:48 03/19/17 16:30 Bedside Glucose 199 mg/dl 324 mg/dl 114 mg/dl Assessment & Plan Atypical chest Pain Troponinx3 sets negative EKG showed paced with no ischemic changes Pacemaker was interrogated about 1 week ago and was functioned well Cardiology on board Case discussed with Dr. Allison Believe her symptom is due to diaphragmatic and chest wall stimulation from a left lateral lead of the pacemaker Recommended to disable again it since pt had it disabled in her last pacemaker before replacing to this pacemaker that was inserted in September Can be arrange as an outpatient Monitor in telemetry ECHO done today showed * The left ventricle is normal in size. * There is moderate concentric left ventricular hypertrophy. * There is mild basal inferior wall hypokinesis. * Ejection Fraction = 55-60%. * Grade I diastolic dysfunction, (abnormal relaxation pattern). * There is no significant valvular disease * There is no pericardial effusion. Uncontrolled DM type 2 Does not take her insulin everyday as per patient Recent hba1c 13.5 on 03/19/17 Home Levemir on hold continue Insulin coverage Pharmacy consulted for glycemic management Starting on Lantus Continue monitor BS diabetic education UTI Continue abx with cefdinir HTN Continue carvedilol Resumed Valsartan CAD s/p stent Continue asa and carvedilol Pacemaker placement Pacemaker was interrogated about 1 week ago as per Cardiology cardiology recommended to disable the lateral lead of the pacemaker since causing chest discomfort due to stimulation of the diaphragmatic and chest wall area Can be arranged as an outpatient DVT px on Lovenox subq CODE STATUS FULL CODE Disposition Continue monitor in tele Possible discharge tomorrow Consultants: Cardiology Pharmacy for glycemic management Current Inpatient Medications: Current Inpatient Medications Medications (Trade) Dose Ordered Sig/Lam Route Start Time Stop Time Status Last Admin Dose Admin Insulin Aspart (novoLOG ASPART) SLIDING SCALE If C... ACHS SC 03/18/17 21:00 04/17/17 20:59 03/19/17 17:29 5 UNITS Glucose (Glucose 40% Gel) 15-30 GRAMS 15 GRAMS... UD PRN PO 03/18/17 17:30 04/17/17 17:29 Glucose (Glucose Chew Tab) 4-8 Tablets 4 Tabl... UD PRN PO 03/18/17 17:30 04/17/17 17:29 Dextrose (Dextrose 50% 50ML Syringe) 25-50ML OF 50% DW IV FOR... UD PRN IV 03/18/17 17:30 04/17/17 17:29 Glucagon (Glucagon Inj) 1 mg UD PRN SQ 03/18/17 17:30 04/17/17 17:29 Aspirin (Ecotrin Tab) 81 mg DAILY PO 03/19/17 09:00 04/18/17 08:59 03/19/17 08:33 81 MG Carvedilol (Coreg Tab) 12.5 mg BID PO 03/18/17 21:00 04/17/17 20:59 03/19/17 08:33 12.5 MG Cetirizine HCl (zyrTEC TAB) 10 mg DAILY PO 03/19/17 09:00 04/18/17 08:59 03/19/17 08:33 10 MG Gabapentin (Neurontin Cap) 100 mg BID PO 03/18/17 21:00 04/17/17 20:59 03/19/17 08:33 100 MG Ranitidine HCl (zANTac TAB) 150 mg BID PO 03/18/17 21:00 04/17/17 20:59 03/19/17 08:33 150 MG Enoxaparin Sodium (Lovenox Inj) 30 mg QAM SQ 03/19/17 09:00 04/18/17 08:59 03/19/17 09:58 30 MG Cefdinir (Omnicef Cap) 300 mg Q12H PO 03/19/17 08:30 03/24/17 08:29 03/19/17 09:57 300 MG Miscellaneous Information (Consult Glycemic Management Pharmacy) 1 ea UD PRN N/A 03/19/17 13:19 04/18/17 13:18 Insulin Aspart (novoLOG ASPART) SLIDING SCALE If C... 0200 SC 03/20/17 02:00 03/20/17 02:01
[2017-03-20] VITALS (7 sets, daily range): BP systolic 112–147; BP diastolic 61–81; PULSE 61–76; TEMP 36.5–36.9; O2SAT 92–98
[2017-03-20] MEDS ORDERED: INSULIN ASPART 100 UNITS/ML 3 ML PEN SC SCH (02:00)
[2017-03-20] MEDS: CEFDINIR 300 MG CAP PO SCH (07:28)
[2017-03-20] MEDS: ASPIRIN 81 MG ECTAB PO SCH (07:29)
[2017-03-20] MEDS: RANITIDINE HCL 150 MG TAB PO SCH (07:29)
[2017-03-20] MEDS: CARVEDILOL 12.5 MG TAB PO SCH (07:29)
[2017-03-20] MEDS: CETIRIZINE HCL 10 MG TAB PO SCH (07:29)
[2017-03-20] MEDS: GABAPENTIN 100 MG CAP PO SCH (07:30)
[2017-03-20] MEDS: ENOXAPARIN 30 MG/0.3 ML SYR SQ SCH (07:30)
[2017-03-20] MEDS: INSULIN ASPART 100 UNITS/ML 3 ML PEN SC SCH ×3 (07:46→16:15)
[2017-03-20] MEDS ORDERED: INSULIN DETEMIR FLEXPEN/FLEX TOUCH 100 UNITS/ML 3ML SC SCH (09:30)
[2017-03-20] MEDS ORDERED: INSULIN DETEMIR FLEXPEN/FLEX TOUCH 100 UNITS/ML 3ML SC ONE (12:00)
[2017-03-20] MEDS ORDERED: INSULIN HUMAN REGULAR PER UNIT 5 UNITS in SYRINGE 4.95 ML IV ONE (12:30)
--- NOTE | 2017-03-20 12:52 | CARDIOLOGY CONSULTATION ---
DATE OF CONSULTATION: 03/20/2017 The patient seen and examined. Chart, medications, telemetry reviewed. SUBJECTIVE: The patient has no complaints this morning. Notes no chest pain or discomfort. Notes no dizziness or lightheadedness. Evaluation is limited by patient's underlying dementia and short term memory deficit. PHYSICAL EXAMINATION: VITAL SIGNS: Heart rate is 67, blood pressure is 136/81. NECK: Thick. There is no distinct jugular venous distention. LUNGS: Clear. CARDIOVASCULAR: Regular with ventricular paced rhythm. ABDOMEN: Soft, nontender. EXTREMITIES: Without cyanosis or clubbing. There is no edema. LABORATORY DATA: Pacer defibrillator interrogation was performed today by rep, on my request left ventricular lead disabled. IMPRESSION: A 76-year-old female with history of a past ischemic cardiomyopathy with biventricular pacer defibrillator implant with recent generator exchange in September, presents with symptoms consistent with chest wall and diaphragm stimulation from left lateral lead, lead disabled. No acute cardiac complications or issues and otherwise, will sign off. The patient previously followed by Dr. Bartolo Alcazar, [place]. Phone number [phone]. Will contact his office regarding changes made. JOSÉ ANTONIO
--- NOTE | 2017-03-20 15:59 | Progress Note ---
Medicine Progress Note Date & Time of Visit: Mar 20, 2017 at 15:23. Subjective Pt was seen and examined Sitting in bed with no distress Pt thought that she would need surgery to get the LV lead disabled I spoke to daughter and explained it to her that we disabled the lead Also I was concerned about her living situation because she lives alone Daughter said that pt does not want to live with anyone Daughter said that she has been refused any help I suggested her daughter about home health services to help her with medication Case management notified and would talk to patient and daughter Pacemaker was interrogated and LV lead was disabled today Denies any chest pain, palpitation, dizziness and SOB Objective Last 8 Hrs Date Time Temp Pulse Resp B/P (MAP) Pulse Ox O2 Delivery O2 Flow Rate FiO2 03/20/17 12:00 Room Air 03/20/17 10:39 36.5 67 20 136/81 (99) 98 03/20/17 08:00 Room Air 03/20/17 07:25 36.6 76 20 120/68 (85) 92 Room Air Physical Exam: General- No discharge Head- atraumatic Eyes- PERRL, EOMI ENT- oropharynx clear Neck- supple, no JVD Lungs- clear to auscultation Heart- regular rhythm Abdomen- normal bowel sounds, soft Extremities-no calf tenderness Neuro- alert, oriented, PERRL, EOMI Skin- warm & dry Laboratory Results: Last 24 Hours Test 03/19/17 16:30 03/19/17 20:26 03/20/17 02:01 03/20/17 06:37 Bedside Glucose 114 mg/dl 134 mg/dl 203 mg/dl 195 mg/dl Test 03/20/17 10:39 03/20/17 12:35 Bedside Glucose 293 mg/dl 245 mg/dl Assessment & Plan Atypical chest Pain Troponinx3 sets negative EKG showed paced with no ischemic changes Pacemaker was interrogated about 1 week ago and was functioned well Cardiology on board Case discussed with Dr. Allison Believe her symptom is due to diaphragmatic and chest wall stimulation from a left lateral lead of the pacemaker Recommended to disable again it since pt had it disabled in her last pacemaker before replacing to this pacemaker that was inserted in September Pacemaker was interrogated and LV lead was disabled today at the Cardiology request by the pacemaker rep Follow up with your cardiology at [place] Resolved ECHO done today showed * The left ventricle is normal in size. * There is moderate concentric left ventricular hypertrophy. * There is mild basal inferior wall hypokinesis. * Ejection Fraction = 55-60%. * Grade I diastolic dysfunction, (abnormal relaxation pattern). * There is no significant valvular disease * There is no pericardial effusion. Uncontrolled DM type 2 Does not take her insulin everyday as per patient Recent hba1c 13.5 on 03/19/17 Resume Home Levemir on discharge continue Insulin coverage Will need to follow a healthy diabetic diet Monitor BS and bring BS log at your next appointment with your PCP on Tue Talked to casework manager about home health services to help her with meds UTI Cefdinir started on 03/11 Completed abx course Stable HTN Continue carvedilol Resumed Valsartan CAD s/p stent Continue asa and carvedilol Dementia Pt is not safe to live by herself Case discussed with daughter Pt has been refused placement manager inspection consulted for social disposition Will be discharged home with home services fall precaution Pacemaker placement Pacemaker was interrogated about 1 week ago as per Cardiology Cardiology recommended to disable the lateral lead of the pacemaker since causing chest discomfort due to stimulation of the diaphragmatic and chest wall area Pacemaker was interrogated and LV lead was disabled today at the Cardiology request by the pacemaker rep DVT px on Lovenox subq CODE STATUS FULL CODE Disposition Continue monitor in tele Discharge home today with home health services Consultants: Cardiology Pharmacy for glycemic management Current Inpatient Medications: Current Inpatient Medications Medications (Trade) Dose Ordered Sig/Lam Route Start Time Stop Time Status Last Admin Dose Admin Insulin Aspart (novoLOG ASPART) SLIDING SCALE If C... ACHS SC 03/18/17 21:00 04/17/17 20:59 03/20/17 11:50 10 UNITS Glucose (Glucose 40% Gel) 15-30 GRAMS 15 GRAMS... UD PRN PO 03/18/17 17:30 04/17/17 17:29 Glucose (Glucose Chew Tab) 4-8 Tablets 4 Tabl... UD PRN PO 03/18/17 17:30 04/17/17 17:29 Dextrose (Dextrose 50% 50ML Syringe) 25-50ML OF 50% DW IV FOR... UD PRN IV 03/18/17 17:30 04/17/17 17:29 Glucagon (Glucagon Inj) 1 mg UD PRN SQ 03/18/17 17:30 04/17/17 17:29 Aspirin (Ecotrin Tab) 81 mg DAILY PO 03/19/17 09:00 04/18/17 08:59 03/20/17 07:29 81 MG Carvedilol (Coreg Tab) 12.5 mg BID PO 03/18/17 21:00 04/17/17 20:59 03/20/17 07:29 12.5 MG Cetirizine HCl (zyrTEC TAB) 10 mg DAILY PO 03/19/17 09:00 04/18/17 08:59 03/20/17 07:29 10 MG Gabapentin (Neurontin Cap) 100 mg BID PO 03/18/17 21:00 04/17/17 20:59 03/20/17 07:30 100 MG Ranitidine HCl (zANTac TAB) 150 mg BID PO 03/18/17 21:00 04/17/17 20:59 03/20/17 07:29 150 MG Enoxaparin Sodium (Lovenox Inj) 30 mg QAM SQ 03/19/17 09:00 04/18/17 08:59 03/20/17 07:30 30 MG Cefdinir (Omnicef Cap) 300 mg Q12H PO 03/19/17 08:30 03/24/17 08:29 03/20/17 07:28 300 MG Miscellaneous Information (Consult Glycemic Management Pharmacy) 1 ea UD PRN N/A 03/19/17 13:19 04/18/17 13:18 Insulin Detemir (Levemir Flexpen/ FlexTouch) SEE PROTOCOL TEXT BID SC 03/20/17 09:30 04/19/17 09:29 03/20/17 09:49 16 UNITS
--- NOTE | 2017-03-20 16:23 | Discharge Instructions ---
Discharge Instructions Date of Service Mar 20, 2017. Admission Reason for Admission: Chest Pain Discharge Discharge Diagnosis / Problem: Atypical Chest Pain, Uncontrolled Diabetes, Dementia, Recent UTI Discharge Goals Goal(s): Decrease discomfort, Improve function, Improve disease control Activity Recommendations Activity Limitations: resume your previous activity (as tolerated) . Instructions / Follow-Up Instructions / Follow-Up Follow up with your primary care provider Dr. Gallardo on 03/23 @ 2 pm Call to schedule a follow up appointment with your Cardiology at [place] Continue monitor your blood sugar closely and bring blood sugar log at your next appointment on Tue Your next dose of Levemir will be tomorrow morning at 9AM (take 25 units in the morning now instead of at night) Follow up a healthy diabetes diet and limited concentrated sweet intake Completed antibiotic course for the UTI Fall precaution Continue Physical therapy classification case manager sent a referral for home madhu services Current Hospital Diet Patient's current hospital diet: Diabetes Type 2 Diet, AHA Diet (Heart Healthy) Discharge Diet Recommended Diet: AHA Diet (Heart Healthy), Diabetes Type 2 Diet Pending Studies Studies pending at discharge: no Laboratory Results Hemoglobin A1c Test 03/19/17 07:05 Range/Units Estimated Average Glucose 341 mg/dl Hemoglobin A1c 13.5 H 4.5-5.6 % Medical Emergencies . Who to Call and When: Medical Emergencies: If at any time you feel your situation is an emergency, please call 911 immediately. . Non-Emergent Contact Non-Emergency issues call your: Primary Care Provider Call Non-Emergent contact if: you have any medication questions . . "Provider Documentation" section prepared by Awa Iqbal. . VTE Core Measure Inpt VTE Proph given/why not?: Enoxaparin (Lovenox)SQ
--- NOTE | 2017-03-20 16:24 | Pharmacy Progress Note ---
Pharmacy Glycemic Short Note 2 Date of Service Mar 20, 2017. OUTPATIENT ANTIDIABETIC REGIMEN: * Levemir 25 units SQ qPM + Novolog 9 units BIDM - non-compliant * A1c 13.5 % (increased from 11.1% on 09/24/16) ASSESSMENT: * 76 yo T2DM female with poor outpatient glycemic control d/t non-compliance with insulin regimen. * Angela continued to have hyperglycemia despite 50% increase in Lantus dose from 03/18 to 03/19. She was started on Lantus BID this morning based on wt/ stress of 3 (16 units BID), however, this also appears to not be enough for her. Will further increase Lantus today, however, I am concerned further increases may cause hypoglycemia once at steady state. * Tighten CF/CR. PLAN FOR INPATIENT GLYCEMIC CONTROL: * Regular IV insulin 5 unit bolus x 1 (with lunch for BSG 293 mg/dL) * Basal insulin - increase * Lantus 26 units this am (16 units at breakfast, additional 10 units given at lunchtime for BSG near 300 mg/dL) * Lantus 20-25 units SQ BID * Bolus insulin - tighten * NovoLog per scale ACHS or Q6hrs while NPO * Goal Range: Low 120 mg/dL - High 160 mg/dL * Correction Factor: 15 mg/dL/unit * Nutritional / Prandial insulin per carb ratio of 1 unit per 6 grams CHO consumed * Add overnight check at 00 & 04 PLAN FOR DISCHARGE: * Insulin needs on discharge are difficult to determine at this time per patient continues to have BSG > 200 mg/dL despite significant increases in basal and bolus insulin. * If patient is discharged on 03/20/17, I recommend the following: * Lantus 20 units SQ BID * Test BSG prior to giving Lantus, if BSG is less than 120 mg/dL only give 16 units * Novolog 10 units SQ three times daily with meals * Prompt follow up with PCP for further titration
--- NOTE | 2017-03-20 16:33 | Discharge Summary ---
Discharge Summary Date of Service Mar 20, 2017. Discharge Summary Admission Date: Mar 18, 2017 at 17:07 Discharge Date: Mar 20, 2017 Discharge Disposition: Home with services Principal Diagnosis: Atypical Chest Pain Secondary Diagnoses/Problems: Uncontrolled DM type 2 Recent UTI CAD s/p stent HTN Dementia Pacemaker Procedures: Pacemaker interrogation with LV lead disabled ECHO Interpretation Summary * Name: PREM ZAPATA Study Date: 03/19/2017 09:11 AM BP: 152/80 mmHg * Patient Location: [id number]\\[id number]\\S242\\[id number]\\2 HR: 65 * : 1940 (M/d/yyyy) Gender: Female Height: 64 in * Age: 76 yrs Ethnicity: CA Weight: 134 lb * Ordering Physician: Awa Iqbal * Referring Physician: Self, Referred * Performed By: Cristiano Purvis RDCS * * Reason For Study: Cerebral ischemia/embolus * BSA: 1.6 m2 * -- Conclusions -- * The left ventricle is normal in size. * There is moderate concentric left ventricular hypertrophy. * There is mild basal inferior wall hypokinesis. * Ejection Fraction = 55-60%. * Grade I diastolic dysfunction, (abnormal relaxation pattern). * There is no significant valvular disease * There is no pericardial effusion. Procedure Details * A complete two-dimensional transthoracic echocardiogram was performed (2D, M- mode, Doppler and color flow Doppler). * The study was technically adequate. Left Ventricle * The left ventricle is normal in size. * There is moderate concentric left ventricular hypertrophy. * Left ventricular systolic function is normal. * Ejection Fraction = 55-60%. * There is mild inferior wall hypokinesis. Right Ventricle * The right ventricle is normal in size and function. * There is a pacemaker lead in the right ventricle. Atria * The left atrial size is normal. * Right atrial size is normal. * No ASD detected; PFO is not assessed. * The atrial septum is aneurysmal. Mitral Valve * The mitral valve is normal. * There is no mitral valve stenosis. * There is trace mitral regurgitation. Tricuspid Valve * The tricuspid valve is normal. * There is no tricuspid stenosis. * There is trace tricuspid regurgitation. Aortic Valve * The aortic valve is trileaflet. * No hemodynamically significant valvular aortic stenosis. * No aortic regurgitation is present. Pulmonic Valve * The pulmonic valve is not well visualized. Great Vessels * The aortic root is normal size. Pericardium/Pleural * There is no pericardial effusion. Great Vessels * Normal inferior vena cava diameter and respiratory variation suggests normal central venous pressure. Left Ventricular Diastolic Function * Grade I diastolic dysfunction, (abnormal relaxation pattern). Consultations: Cardiology Pharmacy for glycemic management Medication Reconciliation Continued Medications: Albuterol Hfa (Ventolin Hfa) 200 Puffs/01845 Mcg Aers 2 PUFFS INH Q4H PRN for SOB/Wheezing, #1 INHALER Aspirin (Aspirin Ec) 81 Mg Tab 81 MG PO DAILY Carvedilol (Coreg) 12.5 Mg Tab 12.5 MG PO BID, TAB TAKE WITH FOOD Cetirizine (Zyrtec) 10 Mg Tab 10 MG PO DAILY, TAB Furosemide (Lasix) 20 Mg Tab 20 MG PO DAILY PRN for WEIGHT GAIN, TAB Gabapentin (Neurontin) 100 Mg Cap 100 MG PO BID, CAP Insulin Aspart (Novolog Penfill) 100 Unit/Ml Inj 9 UNITS SQ BIDM Insulin Detemir (Levemir) 100 Units/Ml Inj 25 UNITS SQ DAILY Multiple Vitamin (Multivitamin) 1 Tab Tab 1 TAB PO DAILY, TAB Ranitidine (Zantac) 150 Mg Tab 150 MG PO BID, TAB Valsartan (Diovan) 80 Mg Tab 80 MG PO DAILY, TAB Discontinued Medications: Cefdinir (Omnicef) 300 Mg Cap 300 MG PO Q12H, CAP Admission Information HPI (per Admitting provider): 76 year old female with PMH of DM, HTN, dementia, Pacemaker placed back in June presents to the Emergency Room with complaints of worsening left-sided chest pain that has been going on for about 3 days. Pt is a poor historian due to dementia. Most of the history obtained from the ER chart. Pt said that since after she had the pacemaker placed back in September, she has been having on/off tenderness around the pacemaker area. She said that in the last 3 days pain has gotten worst around the pacemaker area to the axilla region. She describes it as sharp, constant, non radiating, about 6/10. No exacerbating factors. She is currently being treated for a UTI. She denies any fevers, diaphoresis, palpitation and Dizziness. Her pacemaker was interrogated 1 week ago and was functioned properly. Pt said that she does not take her insulin everyday. She does not remember her insulin dose. I tried to call her PCP office to confirm her meds, the office was already closed. Physical Exam (per Admitting): General Appearance: WD/WN, no apparent distress Head: normocephalic, atraumatic Eyes: PERRL, EOMI ENT: hearing grossly normal Neck: supple, no JVD Respiratory/Chest: no respiratory distress, no accessory muscle use Cardiovascular: regular rate, rhythm, no JVD Abdomen/GI: non tender, soft Back: no CVA tenderness Extremities/Musculoskelatal: no calf tenderness Neurologic/Psych: no motor/sensory deficits, alert, normal mood/affect Skin: warm/dry, no rash Hospital Course Atypical chest Pain Troponinx3 sets negative EKG showed paced with no ischemic changes Pacemaker was interrogated about 1 week ago and was functioned well Cardiology on board Case discussed with Dr. Allison Believe her symptom is due to diaphragmatic and chest wall stimulation from a left lateral lead of the pacemaker Recommended to disable again it since pt had it disabled in her last pacemaker before replacing to this pacemaker that was inserted in September Pacemaker was interrogated and LV lead was disabled today at the Cardiology request by the pacemaker rep Follow up with your cardiology at [place] Resolved ECHO done today showed * The left ventricle is normal in size. * There is moderate concentric left ventricular hypertrophy. * There is mild basal inferior wall hypokinesis. * Ejection Fraction = 55-60%. * Grade I diastolic dysfunction, (abnormal relaxation pattern). * There is no significant valvular disease * There is no pericardial effusion. Uncontrolled DM type 2 Does not take her insulin everyday as per patient Recent hba1c 13.5 on 03/19/17 Resume Home Levemir on discharge continue Insulin coverage Will need to follow a healthy diabetic diet Monitor BS and bring BS log at your next appointment with your PCP on Tue Talked to rn case manager about home health services to help her with meds Recent UTI Cefdinir started on 03/11 Completed abx course Stable HTN Continue carvedilol Resumed Valsartan CAD s/p stent Continue asa and carvedilol Dementia Pt is not safe to live by herself Case discussed with daughter Pt has been refused placement corporate recycling manager consulted for social disposition Will be discharged home with home services fall precaution Pacemaker Pacemaker was interrogated about 1 week ago as per Cardiology Cardiology recommended to disable the lateral lead of the pacemaker since causing chest discomfort due to stimulation of the diaphragmatic and chest wall area Pacemaker was interrogated and LV lead was disabled today at the Cardiology request by the pacemaker rep DVT px on Lovenox subq CODE STATUS FULL CODE Disposition Continue monitor in tele Discharge home today with home health services Total time spent on discharge = 35 minutes This includes examination of the patient, discharge planning, medication reconciliation, and communication with other providers. Discharge Instructions Discharge Instructions Date of Service Mar 20, 2017. Admission Reason for Admission: Chest Pain Discharge Discharge Diagnosis / Problem: Atypical Chest Pain, Uncontrolled Diabetes, Dementia, Recent UTI Discharge Goals Goal(s): Decrease discomfort, Improve function, Improve disease control Activity Recommendations Activity Limitations: resume your previous activity (as tolerated) . Instructions / Follow-Up Instructions / Follow-Up Follow up with your primary care provider Dr. Gallardo on 03/23 @ 2 pm Call to schedule a follow up appointment with your Cardiology at [facility] Continue monitor your blood sugar closely and bring blood sugar log at your next appointment on Tue Your next dose of Levemir will be tomorrow morning at 9AM (take 25 units in the morning now instead of at night) Follow up a healthy diabetes diet and limited concentrated sweet intake Completed antibiotic course for the UTI Fall precaution Continue Physical therapy corporate recycling manager sent a referral for home madhu services Current Hospital Diet Patient's current hospital diet: Diabetes Type 2 Diet, AHA Diet (Heart Healthy) Discharge Diet Recommended Diet: AHA Diet (Heart Healthy), Diabetes Type 2 Diet Pending Studies Studies pending at discharge: no Laboratory Results Hemoglobin A1c Test 03/19/17 07:05 Range/Units Estimated Average Glucose 341 mg/dl Hemoglobin A1c 13.5 H 4.5-5.6 % Medical Emergencies . Who to Call and When: Medical Emergencies: If at any time you feel your situation is an emergency, please call 911 immediately. . Non-Emergent Contact Non-Emergency issues call your: Primary Care Provider Call Non-Emergent contact if: you have any medication questions . . "Provider Documentation" section prepared by Awa Iqbal. . VTE Core Measure Inpt VTE Proph given/why not?: Enoxaparin (Lovenox)SQ Additional Copies To Jp Gallardo D.O.
[2017-03-21 15:34] VITALS: Ht 147.3 cm; Wt 62.2 kg
== END 2017-03-20 17:25 | disposition home or self-care (01) ==
LOC: C.EDB 13:04 → C.2T 17:07 → ENRESERV 19:04
PROVIDERS: ADMIT Internal Medicine; ATTEND Internal Medicine
DX: R07.89 Other chest pain (principal); E11.65 Type 2 diabetes mellitus with hyperglycemia; I25.10 Atherosclerotic heart disease of native coronary artery without angina pectoris; I10 Essential (primary) hypertension; F01.50 Vascular dementia, unspecified severity, without behavioral disturbance, psychotic disturbance, mood disturbance, and anxiety; I25.5 Ischemic cardiomyopathy; N39.0 Urinary tract infection, site not specified; M35.3 Polymyalgia rheumatica; R26.9 Unspecified abnormalities of gait and mobility; I50.22 Chronic systolic (congestive) heart failure; Z95.0 Presence of cardiac pacemaker; E78.5 Hyperlipidemia, unspecified; Z79.82 Long term (current) use of aspirin; Z79.4 Long term (current) use of insulin; Z95.1 Presence of aortocoronary bypass graft; Z83.3 Family history of diabetes mellitus; Z82.49 Family history of ischemic heart disease and other diseases of the circulatory system; Z84.1 Family history of disorders of kidney and ureter

== ENCOUNTER 2017-06-05 10:29 | Emergency (ER) | payer BC ==
[~2017-06-05] VITALS: Ht 147.3 cm; Wt 62.0 kg
[~2017-06-05 10:29] MED LIST changes: -ANT25 PO; -FLUT0.15 NAE; +GABA100C13 PO; -GABA1CAP PO; +INSU1INJ2 SQ; -NVLGI SQ; +RANI150T85 PO; -ZNTT/150 PO
[2017-06-05 10:35] VITALS: TEMP 36.6; Ht 147.3 cm; Wt 62.0 kg
[2017-06-05 11:39] LABS: BASO % 0.4 %; BASO ABS # 0.03 K/uL (0-0.2); EOS % 2.7 %; EOS ABS # 0.21 K/uL (0-0.5); HEMOGLOBIN 12.9 g/dL (12.0-16.0); IG# 0.01 K/uL (0.00-0.02); LYMPH % 41.1 %; LYMPH ABS # 3.22 K/uL (1.2-3.4); MEAN CELL VOLUME 89.2 fL (80-100); MEAN CORPUSCULAR HEMOGLOBIN 30.3 pg (25-34); MEAN CORPUSCULAR HGB CONC 33.9 g/dl (32-36); MEAN PLATELET VOLUME 9.7 fL (7.4-10.4); MONO % 7.7 %; NEUT ABS # 3.77 K/uL (1.4-6.5); PLATELET COUNT 284 K/uL (130-400); RED CELL DISTRIBUTION WIDTH CV 13.5 % (11.5-14.5); RED CELL DISTRIBUTION WIDTH SD 43.6 fL (36.4-46.3); WHITE BLOOD COUNT 7.84 K/uL (4.8-10.8)
--- NOTE | 2017-06-05 11:44 | DIAGNOSTIC IMAGING REPORT ---
CHEST ONE VIEW PORTABLE CLINICAL HISTORY: Atypical chest pain COMPARISON STUDY: 03/18/2017 FINDINGS: The cardiac and mediastinal contours remain stable. There are postsurgical changes of a midline sternotomy. As a left subclavian pacer/defibrillator present. There is no failure. There is no focal pulmonary consolidation. There are no pleural effusions.[ IMPRESSION: No active disease in the chest. Electronically signed by: Bryan Sherwood M.D. 06/05/2017 11:42 AM Dictated Date/Time: 06/05/2017 11:42 AM
[2017-06-05 11:58] LABS: ALBUMIN 3.9 gm/dl (3.4-5.0); AST/SGOT 16 U/L (15-37); BLOOD UREA NITROGEN 16 mg/dl (7-18); CALCIUM 9.5 mg/dl (8.5-10.1); CARBON DIOXIDE 30 mmol/L (21-32); CREATININE 0.96 mg/dl (0.60-1.20); GLUCOSE 274 mg/dl (70-99); LIPASE 104 U/L (73-393); POTASSIUM 3.9 mmol/L (3.5-5.1); SODIUM 136 mmol/L (136-145)
[2017-06-05 12:09] LABS: ALKALINE PHOSPHATASE 84 U/L (45-117); ALT/SGPT 22 U/L (12-78); TOTAL PROTEIN 8.1 gm/dl (6.4-8.2)
[2017-06-05] MEDS ORDERED: MULTCAP98 PO (13:26)
[2017-06-05] MEDS ORDERED: CHOL100010 PO (13:26)
[2017-06-05 13:30] VITALS: BP 150/86; PULSE 76; O2SAT 97
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
== END 2017-06-05 13:31 | disposition home or self-care (01) ==
LOC: C.EDB 10:30 → C.EDA 13:31
DX: Z00.8 Encounter for other general examination (principal); F03.91 Unspecified dementia, unspecified severity, with behavioral disturbance; E11.9 Type 2 diabetes mellitus without complications; I10 Essential (primary) hypertension; I25.10 Atherosclerotic heart disease of native coronary artery without angina pectoris; M35.3 Polymyalgia rheumatica; Z79.899 Other long term (current) drug therapy; Z88.1 Allergy status to other antibiotic agents

== ENCOUNTER 2018-09-10 13:28 | Inpatient (IN) ==
[2018-09-10] MEDS ORDERED: SODIUM CHLORIDE 0.9% 500 ML IV SCH (14:00)
[2018-09-10 14:12] LABS: Immature Granulocytes # (auto) 0.02 K/uL (0.00-0.02); Immature Granulocytes % (auto) 0.3 %; Lymphocytes # (auto) 1.12 K/uL (1.2-3.4); Lymphocytes % (auto) 15.7 %; Mean Corpuscular Hgb Conc 32.3 g/dL (32-36); Mean Corpuscular Volume 90.9 fL (80-100); Mean Platelet Volume 9.9 fL (7.4-10.4); Monocytes # (auto) 0.37 K/uL (0.11-0.59); Monocytes % (auto) 5.2 %; Neutrophils # (auto) 5.63 K/uL (1.4-6.5); Neutrophils % (auto) 78.8 %; Platelet Count 163 K/uL (130-400); RDW Coefficient of Variation 19.5 % (11.5-14.5); RDW Standard Deviation 64.1 fL (36.4-46.3); Red Blood Count 3.41 M/uL (4.2-5.4); White Blood Count 7.14 K/uL (4.8-10.8)
--- NOTE | 2018-09-10 14:20 | XRay Report ---
SINGLE VIEW CHEST CLINICAL HISTORY: Dyspnea. FINDINGS: An AP, portable, upright chest radiograph is compared to study dated 12/22/2017. The examina tion is degraded by portable technique and patient rotation. The patient is status post midline rojo otomy. The heart is enlarged and there is atherosclerotic calcification of the thoracic aorta. A 3-le ad cardiac AICD is unchanged in position. There is pulmonary vascular congestion and mild interstitia l edema. There are small pleural effusions with bibasilar consolidation. No pneumothorax is seen. The skeletal structures are osteopenic. The bony thorax is grossly intact. IMPRESSION: 1. Cardiomegaly and AICD. There is evidence of congestive failure and mild interstitial edema. 2. Small pleural effusions with bibasilar consolidation. Electronically signed by: Tc Mathew M.D. 09/10/2018 2:18 PM
[2018-09-10 14:29] LABS: iSTAT Creatinine 0.8 mg/dl (0.6-1.3); iSTAT Hemoglobin 10.2 g/dl (12.0-16.0); iSTAT Ionized Calcium 1.09 mmol/l (1.12-1.32); iSTAT Potassium 4.3 mEq/L (3.3-5.0)
[2018-09-10] MEDS ORDERED: OPTIRAY 320 125ml IV PRN (14:33)
[2018-09-10 14:38] LABS: Albumin Globulin Ratio 0.9 (0.9-2); Albumin Level 3.5 gm/dl (3.4-5.0); BUN Creatinine Ratio 19.8 (10-20); Bilirubin,Total 0.5 mg/dl (0.2-1); Calcium 8.6 mg/dl (8.5-10.1); Creatinine Clr Calc Pharmacy 39.8 ml/min; D Dimer 760 ug/L FEU (0-500); Est GFR (African American) 59.1; Partial Thromboplastin Time 27.3 Seconds (21.0-31.0); Potassium 4.4 mmol/L (3.5-5.1); Prothrombin Time 10.6 Seconds (9.0-12.0); Total Protein 7.5 gm/dl (6.4-8.2); Troponin I 1.31 ng/ml (0-0.045)
[2018-09-10 14:54] LABS: Beta-Hydroxybutyrate 7.27 mg/dl (0.2-2.81)
--- NOTE | 2018-09-10 15:19 | CT Scan Report ---
CT ANGIOGRAM OF THE CHEST; CT SCAN OF THE ABDOMEN AND PELVIS WITH IV CONTRAST CLINICAL HISTORY: Hypoxia. Elevated d-dimer. Generalized abdominal pain. Vomiting. COMPARISON STUDY: Chest x-ray dated 09/10/2018. CT angiogram of the chest, abdomen, and pelvis dated . TECHNIQUE: Following the IV administration of 120 of Optiray 320, CT angiogram of the chest is perfor med from the upper abdomen to the thoracic inlet utilizing the pulmonary embolus protocol. Images are reviewed in the axial, sagittal, coronal planes. 3-D MIPS images are created and assessed. Subsequen tly, CT scan of the abdomen and pelvis was performed from the lung bases to the proximal femora. Imag es are reviewed in the axial, sagittal, and coronal planes. IV contrast was administered without comp lication. A dose lowering technique was utilized adhering to the principles of ALARA. The examination is degraded by motion artifact, as well as by streak artifact from the arms which could not be eleva thais above the chest or abdomen. CT DOSE: 1385.36 mGy.cm FINDINGS: CHEST: Thyroid: Imaged portions of the thyroid gland are normal in size and heterogeneous in attenuation. Thoracic aorta: There is advanced atherosclerotic calcification of the thoracic aorta, which is olivia l in caliber and demonstrates standard 3-vessel arch anatomy. The thoracic aorta is not well opacifie d. Pulmonary vasculature: The main pulmonary arteries are dilated suggesting pulmonary artery hypertensi on. There are no filling defects identified in the main, lobar, or segmental pulmonary arteries to in dicate pulmonary embolus. Evaluation of the peripheral branches is degraded by motion artifact. Heart: The patient is status post midline sternotomy. A cardiac AICD is present within the left chest wall. The heart is enlarged and without pericardial effusion. The coronary arteries are densely calc ified. Lungs and pleural spaces: Evaluation of lung parenchyma is degraded by motion artifact. There is diff use intralobular septal thickening. Scattered groundglass opacities are seen throughout both lungs. T here are small to moderate pleural effusions with associated atelectasis. The trachea and central air ways appear clear. Mediastinum: There is no mediastinal lymphadenopathy. Adrianna: Clear. Axillae: There is no axillary lymphadenopathy. Bony thorax: The skeletal structures are heterogeneously osteopenic. Degenerative change and hyperkyp hosis are seen throughout the thoracic spine. There is a mild superior endplate compression deformity of T10. No lytic or blastic lesions are identified. ABDOMEN AND PELVIS: Liver: The contrast-enhanced liver is enlarged, measuring 21.2 cm in length. The liver is otherwise n ormal in contour and attenuation. There is no intrahepatic or ductal dilatation. The hepatic veins an d portal veins are patent. Periportal edema is noted. Gallbladder: There are calcified gallstones. The gallbladder is distended. The gallbladder wall is th ickened and there is pericholecystic stranding. The appearance is highly concerning for acute cholecy stitis. Spleen: Normal in size and attenuation. There are calcified splenic granulomas. Pancreas: Atrophic and grossly unremarkable. Adrenal glands: Unremarkable. Kidneys: The contrast enhanced kidneys demonstrate cortical atrophy and are without hydronephrosis. T he kidneys enhance symmetrically. Bilateral renal cysts measure up to 4 cm. Additional subcentimeter cortical hypodensities also likely represent cysts but are too small for definitive characterization. Abdominal vasculature: The abdominal aorta is normal in course and caliber noting advanced atheroscle rotic calcification. Bowel: There is no bowel obstruction. Mild colonic fecal retention is observed. There is a duodenal d iverticulum. The appendix is not identified. Peritoneum: There is no intraperitoneal free air or abdominal ascites. Lymphadenopathy: None. Pelvic viscera: The bladder is distended and there is circumferential bladder wall thickening. The ut erus and adnexa are normal as visualized. Skeletal structures: The skeletal structures are heterogeneously osteopenic. There is a mild inferior endplate compression deformity of L3. This is age indeterminant but new from 2012. Lumbar several sp ondylosis is noted. Sclerotic change is seen in the sacroiliac joints. Arthritic changes observed in the hips. There are healed left pubic ring fractures. No lytic or blastic lesions are seen. IMPRESSION: 1. Streak and motion compromised examination. 2. There is no evidence of pulmonary embolus in the main, lobar, or segmental pulmonary arteries. 3. Cardiomegaly and AICD with evidence of congestive failure. 4. Small to moderate pleural effusions with bibasilar atelectasis. 5. Patchy groundglass opacities are seen throughout both lungs. This likely represents a component of interstitial edema. Correlate clinically for evidence of a superimposed infectious/inflammatory pneu monitis. 6. The gallbladder is distended and there are calcified gallstones. The gallbladder wall is thickened and edematous, and there is mild pericholecystic stranding. Although this could be related to volume overload, the appearance is concerning for acute cholecystitis. Correlation with clinical findings a nd liver function studies will be required. Consider ultrasound for further assessment. 7. The bladder is distended and there is circumferential bladder wall thickening. Correlate clinicall y and with urinalysis. 8. Hepatomegaly. 9. Additional findings as above. Electronically signed by: Tc Mathew M.D. 09/10/2018 3:17 PM
[2018-09-10] MEDS ORDERED: CEFEPIME 1,000 MG in SYRINGE 0 ML IV STA (15:24)
[2018-09-10] MEDS ORDERED: INSULIN HUMAN REGULAR PER UNIT 5 UNITS in SYRINGE 0 ML IV STA (15:40)
[2018-09-10] MEDS ORDERED: INSULIN HUMAN REGULAR PER UNIT 3 UNITS in SYRINGE 2.97 ML IV STA (16:12)
[2018-09-10] MEDS ORDERED: FUROSEMIDE 40 MG/4 ML VIAL IV ONE (16:16)
[2018-09-10] MEDS ORDERED: LORazepam 2 MG/4 ML VIAL ONE (16:32)
[2018-09-10 16:40] LABS: Influenza A virus by PCR Neg for Influ A (Neg); Influenza B virus by PCR Neg for Influ B (Neg)
[2018-09-10] MEDS ORDERED: NovoLIN-R INSULIN PER UNIT CHARGE ONE (16:47)
[2018-09-10 17:03] LABS: Appearance Urine Clear (Clear); Bacteria Urine Automated Negative (Negative); Bilirubin Urine Negative (Negative); Blood Urine Trace (Negative); Color Urine Yellow; Glucose Urine UA 2+ (Negative); Ketones Urine 1+ (Negative); Leukocyte Esterase Urine Negative (Negative); Nitrite Urine Negative (Negative); Protein Urine Negative (Negative); RBC Urine Automated 0-4 /hpf (0-4); Specific Gravity Urine > 1.045 (1.000-1.030); Urobilinogen Urine Negative (Negative); WBC Urine Automated 0 /hpf (0-5)
[2018-09-10] MEDS ORDERED: [UNRECOGNIZED DRUG - OTHER] TOP SCH (18:26)
[2018-09-10] MEDS ORDERED: LORazepam 0.5 MG TAB PO PRN (18:26)
[2018-09-10] MEDS ORDERED: CONSULT PHARMACY STA (18:26)
--- NOTE | 2018-09-10 19:16 | Emergency Department Note ---
Entered by Viki Liriano acting as a scribe for Josh Gautam DO History of Present Illness General Chief complaint: Illness Source: patient, old records reviewed and other (nursing staff here and at [facility]) History of Present Illness Onset (ago): day(s) (this morning) Location: abdomen Pain Consistency: + other (episode) Maximum Pain Intensity: 0 Quality: + other (illness) Associated symptoms: + denies other symptoms (abdomianl pain) and + other (elevated blood sugars, dry heaving); no cough and no headaches The patient is a 77 year old female who presents to the ED with complaints of an episode of an illness starting this morning. Per nursing staff, the patient is coming from [facility] dementia unit. They state that she was sent in because her sugars were elevated. They note that they got a reading of 320 upon arrival. They note that she is at her reported baseline. Per the patients records, the patient is on Levemir and Novolog Flexpen. The patient denies headache, cough, and abdominal pain. Once I spoke with [facility] on the phone, they informed me that they sent her over for both her elevated blood sugars and because she was dry heaving. Home Medications Home Medications Medication Instructions Recorded Confirmed Type acetaminophen [Acetaminophen Extra 1,000 mg PO Q8H PRN 12/22/17 09/10/18 History Strength] albuterol sulfate [Ventolin HFA] 2 puff INHALATION Q4H PRN 12/22/17 09/10/18 History aspirin [Aspirin Low Dose] 81 mg PO QAM 12/22/17 09/10/18 History carvedilol 12.5 mg PO BIDM 12/22/17 09/10/18 History cholecalciferol (vitamin D3) 400 unit PO QAM 12/22/17 09/10/18 History fluticasone propionate 2 spray INTRANASAL DAILY 12/22/17 09/10/18 History furosemide [Lasix] 20 mg PO DAILY PRN 12/22/17 09/10/18 History gabapentin 100 mg PO BID 12/22/17 09/10/18 History insulin aspart U-100 9 unit SUBCUT QAM 12/22/17 09/10/18 History insulin aspart U-100 11 unit SUBCUT QPM 12/22/17 09/10/18 History insulin detemir U-100 [Levemir 25 unit SUBCUT HS 12/22/17 09/10/18 History FlexTouch U-100 Insuln] loratadine 10 mg PO QAM 12/22/17 09/10/18 History multivitamin 1 cap PO QAM 12/22/17 09/10/18 History ranitidine HCl 150 mg PO BID 12/22/17 09/10/18 History simvastatin 20 mg PO QAM 12/22/17 09/10/18 History tolterodine [Detrol] 1 mg PO HS 12/22/17 09/10/18 History linezolid 600 mg tablet 600 mg PO BID 07/10/18 09/10/18 History Mónica Cream 1 applic TOPICAL Q OTHER DAY 09/10/18 09/10/18 History duloxetine 30 mg PO QAM 09/10/18 09/10/18 History lorazepam 0.5 mg PO TID PRN 09/10/18 09/10/18 History losartan 25 mg PO QAM 09/10/18 09/10/18 History melatonin 3 mg PO HS 09/10/18 09/10/18 History nystatin 100,000 unit TOPICAL TID 09/10/18 09/10/18 History quetiapine 50 mg PO QAM 09/10/18 09/10/18 History quetiapine 75 mg PO HS 09/10/18 09/10/18 History Allergies Allergy/AdvReac Type Severity Reaction Status Date / Time Bactrim Allergy Unknown . Verified 09/05/17 16:36 Penicillins Allergy Unknown . Verified 09/10/18 14:16 sulfamethoxazole Allergy Unknown . Verified 09/10/18 14:16 trimethoprim Allergy Unknown . Verified 09/10/18 14:16 atorvastatin AdvReac Intermediate MUSCLE PAIN Verified 09/10/18 14:16 capsaicin AdvReac Intermediate N/V Verified 09/10/18 14:16 diclofenac AdvReac Intermediate N/V Verified 09/10/18 14:16 Diclopak AdvReac Intermediate N/V Verified 09/05/17 13:27 rosuvastatin AdvReac Intermediate MUSCLE PAIN Verified 09/10/18 14:16 fenofibrate AdvReac Mild SORE MOUTH Verified 09/10/18 14:16 Past Med/Surg History Medical History Osteomyelitis (Acute) Diabetic foot ulcer associated with type 2 diabetes mellitus (Acute) Dementia (Chronic 11/01/12) Coronary artery disease (Chronic) "s/p MO" Systolic CHF, chronic (Chronic) "ischemic cardiomyopathy" History of bradycardia (Chronic) Ambulatory dysfunction (Chronic) Diabetes mellitus, type 2 (Chronic) Statin intolerance (Chronic) RADHA inhibitor intolerance (Chronic) PMR (polymyalgia rheumatica) (Chronic) Carotid arterial disease (Chronic) Chest pain Outbursts of anger (Acute) Surgical History Status post coronary artery bypass grafting (Chronic) Status post cardiac pacemaker procedure (Chronic) Status post cataract extraction (Chronic) Status post tubal ligation (Chronic) Family History Other No significant family history Social History marital status: / Current Living Situation: Personal Care Facility current occupational status: retired Feels Safe at Home: Yes Smoking Status: Never smoker Review of Systems See HPI for pertinent positives & negatives. and A total of 10 systems reviewed and were otherwise negative Physical Exam Vital Signs Vital Signs - 24 hr 09/10/18 13:31 09/10/18 13:37 09/10/18 13:50 Temperature 36.9 C Temperature Source Oral Sepsis Recent Fever Within 48 Hours No Sepsis New/Unexplained Change in Mental Status No Sepsis Action Taken by Nursing No Action Required Pulse Rate 93 H 96 H Pulse Rate [Apical] 80 Pulse Rate from SpO2 Sensor 93 H Respiratory Rate 36 H 18 18 Respiratory Depth Normal Blood Pressure 141/83 H 141/83 H Blood Pressure Mean 102 102 Pulse Oximetry 97 88 L 86 L Oxygen Delivery Method Room Air Room Air Oxygen Flow Rate 09/10/18 14:11 09/10/18 14:12 09/10/18 14:48 Temperature Temperature Source Sepsis Recent Fever Within 48 Hours Sepsis New/Unexplained Change in Mental Status Sepsis Action Taken by Nursing Pulse Rate 92 H Pulse Rate [Apical] Pulse Rate from SpO2 Sensor 92 H 100 H Respiratory Rate 18 Respiratory Depth Blood Pressure Blood Pressure Mean Pulse Oximetry 97 95 92 Oxygen Delivery Method Nasal Cannula Oxygen Flow Rate 2 09/10/18 15:00 09/10/18 15:30 09/10/18 16:00 Temperature Temperature Source Sepsis Recent Fever Within 48 Hours Sepsis New/Unexplained Change in Mental Status Sepsis Action Taken by Nursing Pulse Rate 98 H Pulse Rate [Apical] Pulse Rate from SpO2 Sensor 93 H 92 H 101 H Respiratory Rate 20 Respiratory Depth Blood Pressure 150/85 H Blood Pressure Mean 106 Pulse Oximetry 95 94 90 Oxygen Delivery Method Oxygen Flow Rate 09/10/18 16:01 09/10/18 16:02 09/10/18 16:30 Temperature Temperature Source Sepsis Recent Fever Within 48 Hours Sepsis New/Unexplained Change in Mental Status Sepsis Action Taken by Nursing Pulse Rate 96 H 99 H 127 H Pulse Rate [Apical] Pulse Rate from SpO2 Sensor 96 H 99 H Respiratory Rate 30 H 20 22 Respiratory Depth Blood Pressure 154/89 H Blood Pressure Mean 110 Pulse Oximetry 93 88 L Oxygen Delivery Method Oxygen Flow Rate 09/10/18 16:31 Temperature Temperature Source Sepsis Recent Fever Within 48 Hours Sepsis New/Unexplained Change in Mental Status Sepsis Action Taken by Nursing Pulse Rate 128 H Pulse Rate [Apical] Pulse Rate from SpO2 Sensor Respiratory Rate 26 H Respiratory Depth Blood Pressure 165/111 H Blood Pressure Mean 129 Pulse Oximetry Oxygen Delivery Method Oxygen Flow Rate GENERAL: laying in bed, disheveled, on nasal cannula, no acute distress EYE EXAM: normal conjunctiva, PERRL and EOM's grossly intact OROPHARYNX: no exudate, no erythema, lips, buccal mucosa, and tongue normal and mucous membranes are moist NECK: supple, no nuchal rigidity, no adenopathy, non-tender LUNGS: Mild wheezing at bilateral bases. Normal chest wall mechanics HEART: no murmurs, S1 normal and S2 normal ABDOMEN: abdomen soft, non-tender, normo-active bowel sounds, no masses, no rebound or guarding. BACK: Back is symmetrical on inspection and there is no deformity, no midline tenderness, no CVA tenderness. SKIN: no rashes and no bruising UPPER EXTREMITIES: upper extremities are grossly normal. LOWER EXTREMITIES: No pitting edema. 0.5 cm wound at the base of the right first MTP. Small amount of green discharge. NEURO EXAM: Awake, not oriented to person, place, or time, cranial nerves II-XII grossly intact, normal speech, no gross weakness of arms, no gross weakness of legs. Course ED COURSE: Vital signs were reviewed and showed situational hypertension and tachycardia. The patients medical record was reviewed The above diagnostic studies were performed and reviewed. ED treatments and interventions as stated above. 1341: The patient was evaluated in room A2. A complete history and physical examination was performed. 1356: I spoke to [facility] at this time. They updated me on why she was sent here. 1525: I spoke to the patient's daughter at this time. She informed me that the patient would want chest compression, but would not want to be intubated. 1537: I discussed the patient's case with Dr. Whitehead- Surgeon. He recommends that the patient be admitted to medicine. 1540: I discussed the patient's [facility] He will evaluate the patient for further management. 1547: Upon reevaluation, the patient is resting comfortably. I discussed my findings with the patient and she understands and agrees with the treatment plan. Based on the patients age, coexisting illnesses, exam and lab findings the decision to treat as an inpatient was made. The patient remained stable while under my care. The patient will be evaluated for further management. Consultations Consultation #1: I discussed the patient's case with Dr. Whitehead- Surgeon. He recommends that the patient be admitted to medicine. Time: 15:37 Consultation #2: I discussed the patient's [facility] He will evaluate the patient for further management. Time: 15:40 Administered Medications Ioversol (Optiray 320 125ml) 120 ml IV ONCE PRN PRN Reason: Interaction Checking Stop: 09/14/18 14:32 Last Admin: 09/10/18 14:34 Dose: 120 ml Documented by: [id number] Discontinued Medications Furosemide (Lasix) Confirm Administered Dose 40 mg IV .STK-MED ONE Stop: 09/10/18 16:17 Last Admin: 09/10/18 16:18 Dose: 40 mg Documented by: [id number] Sodium Chloride (Nss) 500 mls @ 999 mls/hr IV .Q31M LUCY Stop: 09/10/18 14:30 Last Infusion: 09/10/18 15:01 Dose: 0 mls/hr Documented by: [id number] Admin: 09/10/18 14:30 Dose: 999 mls/hr Documented by: [id number] Cefepime HCl 1,000 mg/ Syringe 11.3 mls @ 5.5 mls/min IV NOW STA; Protocol Stop: 09/10/18 15:26 Last Admin: 09/10/18 15:59 Dose: 5.5 mls/min Documented by: [id number] Insulin Human Regular 3 units/ (Syringe) 3 mls @ 0 mls/hr IV NOW STA Stop: 09/10/18 16:13 Last Admin: 09/10/18 16:48 Dose: 1 mls/hr Documented by: [id number] Cosigned by: [id number] Insulin Human Regular (Novolin R U-100 Per Unit) Confirm Administered Dose 3 units .ROUTE .STK-MED ONE Stop: 09/10/18 16:48 Last Admin: 09/10/18 16:48 Dose: Not Given Documented by: [id number] Lorazepam (Ativan) Confirm Administered Dose 2 mg .ROUTE .STK-MED ONE Stop: 09/10/18 16:33 Last Admin: 09/10/18 16:33 Dose: 0.5 mg Documented by: [id number] Medical Decision Making Differential Diagnosis Differential diagnosis: Etiologies such as biliary colic, cholecystitis, hepatitis, perihepatitis, pancreatitis, cardiac disease, pancreatitis, gastritis, peptic ulcer disease, appendicitis, ovarian cyst, ovarian torsion, ectopic , pelvic inflammatory disease, cystitis, diverticulitis, mesenteric ischemia, inflammatory bowel disease, ileus, bowel obstruction, aortic pathology, shingles, as well as others were considered. Medical Records Attestation: I reviewed the patient's medical records. Home Medications Current Medication List: was personally reviewed by me Laboratory Data Attestation: I reviewed the patient's lab results. Result diagrams: 09/10/18 14:06 09/10/18 14:06 Lab Results 09/10/18 09/10/18 09/10/18 Range/Units 13:36 14:06 14:06 WBC 7.14 (4.8-10.8) K/uL RBC 3.41 L (4.2-5.4) M/uL Hgb 10.0 L (12.0-16.0) g/dL POC Hgb (12.0-16.0) g/dl Hct 31.0 L (37-47) % POC Hct (37-47) % MCV 90.9 (80-100) fL MCH 29.3 (25-34) pg MCHC 32.3 (32-36) g/dL RDW Std Deviation 64.1 H (36.4-46.3) fL RDW Coeff of Fercho 19.5 H (11.5-14.5) % Plt Count 163 (130-400) K/uL MPV 9.9 (7.4-10.4) fL Immature Gran % (Auto) 0.3 % Neut % (Auto) 78.8 % Lymph % (Auto) 15.7 % [place] % (Auto) 5.2 % Eos % (Auto) 0.0 % Baso % (Auto) 0.0 % Immature Gran # (Auto) 0.02 (0.00-0.02) K/uL Neut # (Auto) 5.63 (1.4-6.5) K/uL Lymph # (Auto) 1.12 L (1.2-3.4) K/uL [place] # (Auto) 0.37 (0.11-0.59) K/uL Eos # (Auto) 0.00 (0-0.5) K/uL Baso # (Auto) 0.00 (0-0.2) K/uL PT 10.6 (9.0-12.0) Seconds INR 1.0 (0.9-1.1) APTT 27.3 (21.0-31.0) Seconds PTT Ratio 1.0 D-Dimer 760 H* (0-500) ug/L FEU POC Sodium (135-144) mEq/L Sodium (136-145) mmol/L POC Potassium (3.3-5.0) mEq/L Potassium (3.5-5.1) mmol/L POC Chloride (101-112) mEq/L Chloride (98-107) mmol/L Carbon Dioxide (21-32) mmol/L POC Total CO2 (24-31) mEq/l Anion Gap (3-11) POC Anion Gap (16-25) mmol/L POC BUN (7-18) mg/dl BUN (7-18) mg/dl Creatinine (0.6-1.2) mg/dl POC Creatinine (0.6-1.3) mg/dl Est Cr Clr Drug Dosing ml/min Est GFR ( Amer) Est GFR (Non-Af Amer) BUN/Creatinine Ratio (10-20) Glucose (70-99) mg/dl POC Glucose 336 H* (70-99) POC Glucose (other) (70-99) mg/dl Calcium (8.5-10.1) mg/dl POC Ioniz Calcium Naif (1.12-1.32) mmol/l Total Bilirubin (0.2-1) mg/dl AST (15-37) U/L ALT (12-78) U/L Alkaline Phosphatase (45-117) U/L Troponin I (0-0.045) ng/ml NT-Pro-B Natriuret Pep (0-1800) pg/ml Total Protein (6.4-8.2) gm/dl Albumin (3.4-5.0) gm/dl Globulin (2.5-4.0) gm/dl Albumin/Globulin Ratio (0.9-2) Beta-Hydroxybutyric Acd (0.2-2.81) mg/dl Urine Color Urine Appearance (Clear) Urine pH (4.5-7.5) Ur Specific [place] (1.000-1.030) Urine Protein (Negative) Urine Glucose (UA) (Negative) Urine Ketones (Negative) Urine Blood (Negative) Urine Nitrite (Negative) Urine Bilirubin (Negative) Urine Urobilinogen (Negative) Ur Leukocyte Esterase (Negative) Urine WBC (Auto) (0-5) /hpf Urine RBC (Auto) (0-4) /hpf U Hyaline Cast (Auto) (0-5) /lpf U Epithel Cells (Auto) (0-5) /lpf Urine Bacteria (Auto) (Negative) Influenza Type A (PCR) (Neg) Influenza Type B (PCR) (Neg) 09/10/18 09/10/18 09/10/18 Range/Units 14:06 14:15 16:00 WBC (4.8-10.8) K/uL RBC (4.2-5.4) M/uL Hgb (12.0-16.0) g/dL POC Hgb 10.2 L (12.0-16.0) g/dl Hct (37-47) % POC Hct 30 L (37-47) % MCV (80-100) fL MCH (25-34) pg MCHC (32-36) g/dL RDW Std Deviation (36.4-46.3) fL RDW Coeff of Fercho (11.5-14.5) % Plt Count (130-400) K/uL MPV (7.4-10.4) fL Immature Gran % (Auto) % Neut % (Auto) % Lymph % (Auto) % [place] % (Auto) % Eos % (Auto) % Baso % (Auto) % Immature Gran # (Auto) (0.00-0.02) K/uL Neut # (Auto) (1.4-6.5) K/uL Lymph # (Auto) (1.2-3.4) K/uL [place] # (Auto) (0.11-0.59) K/uL Eos # (Auto) (0-0.5) K/uL Baso # (Auto) (0-0.2) K/uL PT (9.0-12.0) Seconds INR (0.9-1.1) APTT (21.0-31.0) Seconds PTT Ratio D-Dimer (0-500) ug/L FEU POC Sodium 140 (135-144) mEq/L Sodium 139 (136-145) mmol/L POC Potassium 4.3 (3.3-5.0) mEq/L Potassium 4.4 (3.5-5.1) mmol/L POC Chloride 103 (101-112) mEq/L Chloride 104 (98-107) mmol/L Carbon Dioxide 26 (21-32) mmol/L POC Total CO2 24 (24-31) mEq/l Anion Gap 9.0 (3-11) POC Anion Gap 18.0 (16-25) mmol/L POC BUN 22 H (7-18) mg/dl BUN 21 H (7-18) mg/dl Creatinine 1.06 (0.6-1.2) mg/dl POC Creatinine 0.8 (0.6-1.3) mg/dl Est Cr Clr Drug Dosing 39.8 ml/min Est GFR ( Amer) 59.1 Est GFR (Non-Af Amer) 51.0 BUN/Creatinine Ratio 19.8 (10-20) Glucose 330 H* (70-99) mg/dl POC Glucose (70-99) POC Glucose (other) 331 H (70-99) mg/dl Calcium 8.6 (8.5-10.1) mg/dl POC Ioniz Calcium Naif 1.09 L (1.12-1.32) mmol/l Total Bilirubin 0.5 (0.2-1) mg/dl AST 23 (15-37) U/L ALT 25 (12-78) U/L Alkaline Phosphatase 74 (45-117) U/L Troponin I 1.310 H* (0-0.045) ng/ml NT-Pro-B Natriuret Pep 23237 H (0-1800) pg/ml Total Protein 7.5 (6.4-8.2) gm/dl Albumin 3.5 (3.4-5.0) gm/dl Globulin 4.0 (2.5-4.0) gm/dl Albumin/Globulin Ratio 0.9 (0.9-2) Beta-Hydroxybutyric Acd 7.27 H (0.2-2.81) mg/dl Urine Color Urine Appearance (Clear) Urine pH (4.5-7.5) Ur Specific [place] (1.000-1.030) Urine Protein (Negative) Urine Glucose (UA) (Negative) Urine Ketones (Negative) Urine Blood (Negative) Urine Nitrite (Negative) Urine Bilirubin (Negative) Urine Urobilinogen (Negative) Ur Leukocyte Esterase (Negative) Urine WBC (Auto) (0-5) /hpf Urine RBC (Auto) (0-4) /hpf U Hyaline Cast (Auto) (0-5) /lpf U Epithel Cells (Auto) (0-5) /lpf Urine Bacteria (Auto) (Negative) Influenza Type A (PCR) Neg for Influ A (Neg) Influenza Type B (PCR) Neg for Influ B (Neg) 09/10/18 09/10/18 Range/Units 16:06 16:35 WBC (4.8-10.8) K/uL RBC (4.2-5.4) M/uL Hgb (12.0-16.0) g/dL POC Hgb (12.0-16.0) g/dl Hct (37-47) % POC Hct (37-47) % MCV (80-100) fL MCH (25-34) pg MCHC (32-36) g/dL RDW Std Deviation (36.4-46.3) fL RDW Coeff of Fercho (11.5-14.5) % Plt Count (130-400) K/uL MPV (7.4-10.4) fL Immature Gran % (Auto) % Neut % (Auto) % Lymph % (Auto) % [place] % (Auto) % Eos % (Auto) % Baso % (Auto) % Immature Gran # (Auto) (0.00-0.02) K/uL Neut # (Auto) (1.4-6.5) K/uL Lymph # (Auto) (1.2-3.4) K/uL [place] # (Auto) (0.11-0.59) K/uL Eos # (Auto) (0-0.5) K/uL Baso # (Auto) (0-0.2) K/uL PT (9.0-12.0) Seconds INR (0.9-1.1) APTT (21.0-31.0) Seconds PTT Ratio D-Dimer (0-500) ug/L FEU POC Sodium (135-144) mEq/L Sodium (136-145) mmol/L POC Potassium (3.3-5.0) mEq/L Potassium (3.5-5.1) mmol/L POC Chloride (101-112) mEq/L Chloride (98-107) mmol/L Carbon Dioxide (21-32) mmol/L POC Total CO2 (24-31) mEq/l Anion Gap (3-11) POC Anion Gap (16-25) mmol/L POC BUN (7-18) mg/dl BUN (7-18) mg/dl Creatinine (0.6-1.2) mg/dl POC Creatinine (0.6-1.3) mg/dl Est Cr Clr Drug Dosing ml/min Est GFR ( Amer) Est GFR (Non-Af Amer) BUN/Creatinine Ratio (10-20) Glucose (70-99) mg/dl POC Glucose 286 H (70-99) POC Glucose (other) (70-99) mg/dl Calcium (8.5-10.1) mg/dl POC Ioniz Calcium Naif (1.12-1.32) mmol/l Total Bilirubin (0.2-1) mg/dl AST (15-37) U/L ALT (12-78) U/L Alkaline Phosphatase (45-117) U/L Troponin I (0-0.045) ng/ml NT-Pro-B Natriuret Pep (0-1800) pg/ml Total Protein (6.4-8.2) gm/dl Albumin (3.4-5.0) gm/dl Globulin (2.5-4.0) gm/dl Albumin/Globulin Ratio (0.9-2) Beta-Hydroxybutyric Acd (0.2-2.81) mg/dl Urine Color Yellow Urine Appearance Clear (Clear) Urine pH 5.0 (4.5-7.5) Ur Specific [place] > 1.045 H (1.000-1.030) Urine Protein Negative (Negative) Urine Glucose (UA) 2+ H (Negative) Urine Ketones 1+ H (Negative) Urine Blood Trace H (Negative) Urine Nitrite Negative (Negative) Urine Bilirubin Negative (Negative) Urine Urobilinogen Negative (Negative) Ur Leukocyte Esterase Negative (Negative) Urine WBC (Auto) 0 (0-5) /hpf Urine RBC (Auto) 0-4 (0-4) /hpf U Hyaline Cast (Auto) 1-5 (0-5) /lpf U Epithel Cells (Auto) 5-10 H (0-5) /lpf Urine Bacteria (Auto) Negative (Negative) Influenza Type A (PCR) (Neg) Influenza Type B (PCR) (Neg) Imaging Data Radiologist's Impression: Radiology results as stated below per my review and the radiologist's interpretation: SINGLE VIEW CHEST CLINICAL HISTORY: Dyspnea. FINDINGS: An AP, portable, upright chest radiograph is compared to study dated 12/22/2017. The examination is degraded by portable technique and patient rotation. The patient is status post midline sternotomy. The heart is enlarged and there is atherosclerotic calcification of the thoracic aorta. A 3-lead cardiac AICD is unchanged in position. There is pulmonary vascular congestion and mild interstitial edema. There are small pleural effusions with bibasilar consolidation. No pneumothorax is seen. The skeletal structures are osteopenic. The bony thorax is grossly intact. IMPRESSION: 1. Cardiomegaly and AICD. There is evidence of congestive failure and mild interstitial edema. 2. Small pleural effusions with bibasilar consolidation. Electronically signed by: Tc Mathew M.D. 09/10/2018 2:[address] ANGIOGRAM OF THE CHEST; CT SCAN OF THE ABDOMEN AND PELVIS WITH IV CONTRAST CLINICAL HISTORY: Hypoxia. Elevated d-dimer. Generalized abdominal pain. Vomiting. COMPARISON STUDY: Chest x-ray dated 09/10/2018. CT angiogram of the chest, abdomen, and pelvis dated 11/01/2012. TECHNIQUE: Following the IV administration of 120 of Optiray 320, CT angiogram of the chest is performed from the upper abdomen to the thoracic inlet utilizing the pulmonary embolus protocol. Images are reviewed in the axial, sagittal, co yaz planes. 3-D MIPS images are created and assessed. Subsequently, CT scan of the abdomen and pelvis was performed from the lung bases to the proximal femora. Images are reviewed in the axial, sagittal, and coronal planes. IV contrast was administered without complication. A dose lowering technique was utilized adhering to the principles of ALARA. The examination is degraded by motion artifact, as well as by streak artifact from the arms which could not be elevated above the chest or abdomen. CT DOSE: 1385.36 mGy.cm FINDINGS: CHEST: Thyroid: Imaged portions of the thyroid gland are normal in size and heterogeneous in attenuation. Thoracic aorta: There is advanced atherosclerotic calcification of the thoracic aorta, which is normal in caliber and demonstrates standard 3-vessel arch anatomy. The thoracic aorta is not well opacified. Pulmonary vasculature: The main pulmonary arteries are dilated suggesting pulmonary artery hypertension. There are no filling defects identified in the main, lobar, or segmental pulmonary arteries to indicate pulmonary embolus. Evaluation of the peripheral branches is degraded by motion artifact. Heart: The patient is status post midline sternotomy. A cardiac AICD is present within the left chest wall. The heart is enlarged and without pericardial effusion. The coronary arteries are densely calcified. Lungs and pleural spaces: Evaluation of lung parenchyma is degraded by motion artifact. There is diffuse intralobular septal thickening. Scattered groundglass opacities are seen throughout both lungs. There are small to moderate pleural e ffusions with associated atelectasis. The trachea and central airways appear clear. Mediastinum: There is no mediastinal lymphadenopathy. Adrianna: Clear. Axillae: There is no axillary lymphadenopathy. Bony thorax: The skeletal structures are heterogeneously osteopenic. Degenerative change and hyperkyphosis are seen throughout the thoracic spine. There is a mild superior endplate compression deformity of T10. No lytic or blastic lesions are identified. ABDOMEN AND PELVIS: Liver: The contrast-enhanced liver is enlarged, measuring 21.2 cm in length. The liver is otherwise normal in contour and attenuation. There is no intrahepatic or ductal dilatation. The hepatic veins and portal veins are patent. Periportal edema is noted. Gallbladder: There are calcified gallstones. The gallbladder is distended. The gallbladder wall is thickened and there is pericholecystic stranding. The appearance is highly concerning for acute cholecystitis. Spleen: Normal in size and attenuation. There are calcified splenic granulomas. Pancreas: Atrophic and grossly unremarkable. Adrenal glands: Unremarkable. Kidneys: The contrast enhanced kidneys demonstrate cortical atrophy and are without hydronephrosis. The kidneys enhance symmetrically. Bilateral renal cysts measure up to 4 cm. Additional subcentimeter cortical hypodensities also likely represent cysts but are too small for definitive characterization. Abdominal vasculature: The abdominal aorta is normal in course and caliber noting advanced atherosclerotic calcification. Bowel: There is no bowel obstruction. Mild colonic fecal retention is observed. There is a duodenal diverticulum. The appendix is not identified. Peritoneum: There is no intraperitoneal free air or abdominal ascites. Lymphadenopathy: None. Pelvic viscera: The bladder is distended and there is circumferential bladder wall thickening. The uterus and adnexa are normal as visualized. Skeletal structures: The skeletal structures are heterogeneously osteopenic. T here is a mild inferior endplate compression deformity of L3. This is age indeterminant but new from 2013. Lumbar several spondylosis is noted. Sclerotic change is seen in the sacroiliac joints. Arthritic changes observed in the hips. There are healed left pubic ring fractures. No lytic or blastic lesions are seen. IMPRESSION: 1. Streak and motion compromised examination. 2. There is no evidence of pulmonary embolus in the main, lobar, or segmental pulmonary arteries. 3. Cardiomegaly and AICD with evidence of congestive failure. 4. Small to moderate pleural effusions with bibasilar atelectasis. 5. Patchy groundglass opacities are seen throughout both lungs. This likely represents a component of interstitial edema. Correlate clinically for evidence of a superimposed infectious/inflammatory pneumonitis. 6. The gallbladder is distended and there are calcified gallstones. The gallbla dder wall is thickened and edematous, and there is mild pericholecystic stranding. Although this could be related to volume overload, the appearance is concerning for acute cholecystitis. Correlation with clinical findings and liver function studies will be required. Consider ultrasound for further assessment. 7. The bladder is distended and there is circumferential bladder wall thickening. Correlate clinically and with urinalysis. 8. Hepatomegaly. 9. Additional findings as above. Electronically signed by: Tc Mathew M.D. 09/10/2018 3:17 PM ECG Data Attestation: I personally reviewed and interpreted this ECG as follows: Indication: SOB/dyspnea Rate (beats per minute): 93 Rhythm: other (atrially sensed, ventricularly paced) Findings: + RBBB, + T-wave inversion (hilateral leads) and + left axis deviation Blood Pressure Blood Pressure Findings: Elevated blood pressure Blood Pressure Disposition: elevated BP felt to be situational MDM Narrative Patient is a 77-year-old female that presents the ER from alcohol office for abdominal pain and vomiting. Patient was found to be hypoxic at 85% on room air. She is a small wound at the base of her right first toe as well. Labs were obtained show no significant anemia. No significant leukocytosis either. D-dimer was elevated at 760. BMP is unremarkable. Glucose was significantly elevated at 330. She was given IV glucose 3 units. No significant transaminitis. Bilirubin was unremarkable. Troponin was elevated at 1.3. EKG was paced. BNP was elevated at 11,000. CT of the chest shows no obvious PEs but bilateral pleural effusions. CT the abdomen pelvis showed questionable cholecystitis versus volume overloaded state. She was minimally tender but not significant. Ramon with general surgery and they recommend admission to the hospitalist and HIDA scan. I did cover her with IV antibiotics. Updated daughter will present eventually. UA was negative. Influenza was negative. Patient was updated bedside and admitted to the hospital although she would not understand with her dementia. I did not start her on any blood thinners with the elevated troponin as for the possibility of possible cholecystectomy. Impression & Plan CHF (congestive heart failure), Cholecystitis, Non-ST elevation MO (NSTEMI) Discharge Plan Visit Data *Final* Discharge Date/Time: 09/10/18 17:23 Chief Complaint: Illness ED Provider: Josh Gautam Discharge Problem: CHF (congestive heart failure), Cholecystitis, Non-ST elevation MO (NSTEMI) Patient Disposition: Admitted As Inpatient Discharge Instructions Interventions: ED Discharge Assessment Last Done: 09/10/18 17:23 Discharge Problem: CHF (congestive heart failure) Qualifiers: Heart failure type: unspecified Heart failure chronicity: unspecified Qualified Code(s): I50.9 - Heart failure, unspecified The scribe's documentation has been prepared under my direction and personally reviewed by me in its entirety. I confirm that the note above accurately reflects all work, treatment, procedures, and medical decision making performed by me.
[2018-09-10] MEDS ORDERED: PHARMACY GLYCEMIC MGMT CONSULT PRN (19:24)
--- NOTE | 2018-09-10 19:27 | History & Physical Report ---
Date of Service September 10, 2018 Assessment & Plan (1) Abdominal pain: Rule out cholecystitis, gastritis, peptic ulcer disease CT abdomen and pelvis: 1. Streak and motion compromised examination. 2. There is no evidence of pulmonary embolus in the main, lobar, or segmental pulmonary arteries. 3. Cardiomegaly and AICD with evidence of congestive failure. 4. Small to moderate pleural effusions with bibasilar atelectasis. 5. Patchy groundglass opacities are seen throughout both lungs. This likely represents a component of interstitial edema. Correlate clinically for evidence of a superimposed infectious/inflammatory pneumonitis. 6. The gallbladder is distended and there are calcified gallstones. The gallbladder wall is thickened and edematous, and there is mild pericholecystic stranding. Although this could be related to volume overload, the appearance is concerning for acute cholecystitis. Correlation with clinical findings and liver function studies will be required. Consider ultrasound for further assessment. 7. The bladder is distended and there is circumferential bladder wall thickening. Correlate clinically and with urinalysis. 8. Hepatomegaly. 9. Additional findings as above. LFTs within normal limits ER physician discussed case with surgeon tenon machine operator Dr. Ortega-he recommended HIDA scan HIDA scan cannot be performed until tomorrow, will order a gallbladder ultrasound We will give IV Zosyn, PRN analgesics, placed on n.p.o. status Able to give IV fluids due to patient's CHF exacerbation will also order IV Protonix General surgery consulted Acute CHF exacerbation, history of ischemic cardiomyopathy, status post pacemaker placement ICD placement Patient usually takes Lasix [address] chest confirms bilateral pleural effusions Lasix 40 mg IV ordered Continue to monitor diuresis and titrate Lasix accordingly Cardiology service consulted Hypoxia, likely secondary to CHF exacerbation, possible pneumonia Treatment of CHF as per #2 Patient will be on Zosyn IV Wean off oxygen accordingly Elevated troponins First troponin 1.3 EKG no signs of acute ischemia or infarct trend troponin levels Could only be secondary to CHF exacerbation Monitor in telemetry unit Hyperglycemia, diabetes type 2 Patient takes aspart and Lantus Missed recent admissions 300s, no anion gap Pharmacy glycemic control consulted Rule out UTI Urinalysis suggestive of possible UTI Currently on Zosyn for possible cholecystitis Urine culture and blood culture ordered Hypertension Continue usual carvedilol and losartan Dementia As per staff pharmacist hospital in [facility], the patient is usually confused, restless, yelling Continue usual Seroquel Confusion likely exacerbated by underlying infection and CHF exacerbation Ativan as needed IV ordered Haldol being avoided secondary to prolonged QT of 549 DVT prophylaxis Heparin CODE STATUS DNR as per staff of [facility] Disposition Pending Anticipate discharge to [facility] medically stable History of Present Illness 77-year-old female with history of ischemic cardiomyopathy, status post pacemaker and ICD placement, diabetes, hypertension, PVD, GERD, dementia, Resident of [facility], presenting with abdominal pain and elevated blood glucose. History obtained mostly from patient's RN at [facility] as patient has severe dementia and is very confused[facility]. According to the patient's RN at [facility], the shunt is usually confused, restless, yelling. Today, she was started to have abdominal pain and was noted to have a blood sugar of 300s. She was then brought to the ER for further evaluation and treatment. Patient received afebrile, with generally stable vital signs except for hypoxia 88% on room air. CT scan of the chest revealed bilateral pleural effusions. BNP was elevated at 11,000. Troponins also elevated at 1.3. CT abdomen showed gallbladder distention and gallstones. Patient was given cefepime IV at the ER On exam, the patient was awake and alert but was disoriented, somewhat restless. She seems to be pointing to her epigastric region, but cannot describe the pain. Denies shortness of breath Full review of systems difficult to perform as the patient is very confused. She was not in acute cardiorespiratory distress. From a few minutes later the patient became more agitated, combative, yelling. He was given IV Lasix 40 mg, and Ativan 0.5 mg IV. Patient became more calm afterwards. No other symptoms per staff pharmacist hospital in [facility]. Primary Care Provider: [facility] Allergies Allergy/AdvReac Type Severity Reaction Status Date / Time Bactrim Allergy Unknown . Verified 09/05/17 16:36 Penicillins Allergy Unknown . Verified 09/10/18 14:16 sulfamethoxazole Allergy Unknown . Verified 09/10/18 14:16 trimethoprim Allergy Unknown . Verified 09/10/18 14:16 atorvastatin AdvReac Intermediate MUSCLE PAIN Verified 09/10/18 14:16 capsaicin AdvReac Intermediate N/V Verified 09/10/18 14:16 diclofenac AdvReac Intermediate N/V Verified 09/10/18 14:16 Diclopak AdvReac Intermediate N/V Verified 09/05/17 13:27 rosuvastatin AdvReac Intermediate MUSCLE PAIN Verified 09/10/18 14:16 fenofibrate AdvReac Mild SORE MOUTH Verified 09/10/18 14:16 Home Medications Home Medications Medication Instructions Recorded Confirmed Type acetaminophen [Acetaminophen Extra 1,000 mg PO Q8H PRN 12/22/17 09/10/18 History Strength] albuterol sulfate [Ventolin HFA] 2 puff INHALATION Q4H PRN 12/22/17 09/10/18 History aspirin [Aspirin Low Dose] 81 mg PO QAM 12/22/17 09/10/18 History carvedilol 12.5 mg PO BIDM 12/22/17 09/10/18 History cholecalciferol (vitamin D3) 400 unit PO QAM 12/22/17 09/10/18 History fluticasone propionate 2 spray INTRANASAL DAILY 12/22/17 09/10/18 History furosemide [Lasix] 20 mg PO DAILY PRN 12/22/17 09/10/18 History gabapentin 100 mg PO BID 12/22/17 09/10/18 History insulin aspart U-100 9 unit SUBCUT QAM 12/22/17 09/10/18 History insulin aspart U-100 11 unit SUBCUT QPM 12/22/17 09/10/18 History insulin detemir U-100 [Levemir 25 unit SUBCUT 12/22/17 09/10/18 History FlexTouch U-100 Insuln] loratadine 10 mg PO QAM 12/22/17 09/10/18 History multivitamin 1 cap PO QAM 12/22/17 09/10/18 History ranitidine HCl 150 mg PO BID 12/22/17 09/10/18 History simvastatin 20 mg PO QAM 12/22/17 09/10/18 History tolterodine [Detrol] 1 mg PO 12/22/17 09/10/18 History linezolid 600 mg tablet 600 mg PO BID 07/10/18 09/10/18 History Mónica Cream 1 applic TOPICAL Q OTHER DAY 09/10/18 09/10/18 History duloxetine 30 mg PO QAM 09/10/18 09/10/18 History lorazepam 0.5 mg PO TID PRN 09/10/18 09/10/18 History losartan 25 mg PO QAM 09/10/18 09/10/18 History melatonin 3 mg PO HS 09/10/18 09/10/18 History nystatin 100,000 unit TOPICAL TID 09/10/18 09/10/18 History quetiapine 50 mg PO QAM 09/10/18 09/10/18 History quetiapine 75 mg PO HS 09/10/18 09/10/18 History Past Med/Surg History Medical History Osteomyelitis (Acute) Diabetic foot ulcer associated with type 2 diabetes mellitus (Acute) Dementia (Chronic 11/01/12) Coronary artery disease (Chronic) "s/p [place]" Systolic CHF, chronic (Chronic) "ischemic cardiomyopathy" History of bradycardia (Chronic) Ambulatory dysfunction (Chronic) Diabetes mellitus, type 2 (Chronic) Statin intolerance (Chronic) RADHA inhibitor intolerance (Chronic) PMR (polymyalgia rheumatica) (Chronic) Carotid arterial disease (Chronic) Chest pain Outbursts of anger (Acute) Surgical History Status post coronary artery bypass grafting (Chronic) Status post cardiac pacemaker procedure (Chronic) Status post cataract extraction (Chronic) Status post tubal ligation (Chronic) Family History Other No significant family history Social History Preferred Language: Indonesian Recording Engineer Required: No Beliefs That Will Affect Care: None marital status: / Current Living Situation: Personal Care Facility current occupational status: retired Other Information That Helps Us Care for You: No Feels Safe at Home: Yes Smoking Status: Never smoker Hx Alcohol Use: No Hx Substance Use: No Review of Systems Review of Systems: Unobtainable due to cognitive status Physical Exam Physical Exam: General- oriented x 0, not in distress, speaks in sentences with no effort or accessory muscle use Restless, agitated Head- atraumatic Eyes- PERRL, EOMI, anicteric ENT- oropharynx clear Positive JVD Neck- supple, no JVD, no adenopathy, no thyromegaly; carotids +2/2, no bruits appreciated Lungs-positive mild rales bilateral bases, no wheezing, good air entry bilaterally otherwise Heart- normal rate, regular rhythm; no murmur, no gallop, no rub appreciated Abdomen- normal bowel sounds, nondistended, soft, nontender, no masses or hepatosplenomegaly Extremities-mild pretibial edema, no calf tenderness; peripheral pulses intact Neuro- alert, not oriented; all extremities equally, full neurologic evaluation difficult to assess due to patient's severe dementia Skin- warm & dry Results & Data Vital Signs (Past 12 Hours) Vital Signs Temp Pulse Pulse Resp BP Pulse Ox 09/10/18 17:01 99 H 33 H 141/84 H 97 09/10/18 17:00 97 H 27 H 09/10/18 16:31 128 H 26 H 165/111 H 09/10/18 16:30 127 H 22 09/10/18 16:02 99 H 20 88 L 09/10/18 16:01 96 H 30 H 154/89 H 93 09/10/18 16:00 98 H 20 150/85 H 90 09/10/18 15:30 94 09/10/18 15:00 95 09/10/18 14:48 92 09/10/18 14:12 92 H 18 95 09/10/18 14:11 97 09/10/18 13:50 80 18 86 L 09/10/18 13:37 36.9 C 96 H 18 141/83 H 88 L 09/10/18 13:31 93 H 36 H 141/83 H 97 Laboratory Results Laboratory Results - last 24 hr 09/10/18 09/10/18 09/10/18 13:36 14:06 14:06 WBC 7.14 RBC 3.41 L Hgb 10.0 L POC Hgb Hct 31.0 L POC Hct MCV 90.9 MCH 29.3 MCHC 32.3 RDW Std Deviation 64.1 H RDW Coeff of Fercho 19.5 H Plt Count 163 MPV 9.9 Immature Gran % (Auto) 0.3 Neut % (Auto) 78.8 Lymph % (Auto) 15.7 [place] % (Auto) 5.2 Eos % (Auto) 0.0 Baso % (Auto) 0.0 Immature Gran # (Auto) 0.02 Neut # (Auto) 5.63 Lymph # (Auto) 1.12 L [place] # (Auto) 0.37 Eos # (Auto) 0.00 Baso # (Auto) 0.00 PT 10.6 INR 1.0 APTT 27.3 PTT Ratio 1.0 D-Dimer 760 H* POC Sodium Sodium POC Potassium Potassium POC Chloride Chloride Carbon Dioxide POC Total CO2 Anion Gap POC Anion Gap POC BUN BUN Creatinine POC Creatinine Est Cr Clr Drug Dosing Est GFR ( Amer) Est GFR (Non-Af Amer) BUN/Creatinine Ratio Glucose POC Glucose 336 H* POC Glucose (other) Calcium POC Ioniz Calcium Naif Total Bilirubin AST ALT Alkaline Phosphatase Troponin I NT-Pro-B Natriuret Pep Total Protein Albumin Globulin Albumin/Globulin Ratio Beta-Hydroxybutyric Acd Urine Color Urine Appearance Urine pH Ur Specific [place] Urine Protein Urine Glucose (UA) Urine Ketones Urine Blood Urine Nitrite Urine Bilirubin Urine Urobilinogen Ur Leukocyte Esterase Urine WBC (Auto) Urine RBC (Auto) U Hyaline Cast (Auto) U Epithel Cells (Auto) Urine Bacteria (Auto) Influenza Type A (PCR) Influenza Type B (PCR) 09/10/18 09/10/18 09/10/18 14:06 14:15 16:00 WBC RBC Hgb POC Hgb 10.2 L Hct POC Hct 30 L MCV MCH MCHC RDW Std Deviation RDW Coeff of Fercho Plt Count MPV Immature Gran % (Auto) Neut % (Auto) Lymph % (Auto) [place] % (Auto) Eos % (Auto) Baso % (Auto) Immature Gran # (Auto) Neut # (Auto) Lymph # (Auto) [place] # (Auto) Eos # (Auto) Baso # (Auto) PT INR APTT PTT Ratio D-Dimer POC Sodium 140 Sodium 139 POC Potassium 4.3 Potassium 4.4 POC Chloride 103 Chloride 104 Carbon Dioxide 26 POC Total CO2 24 Anion Gap 9.0 POC Anion Gap 18.0 POC BUN 22 H BUN 21 H Creatinine 1.06 POC Creatinine 0.8 Est Cr Clr Drug Dosing 39.8 Est GFR ( Amer) 59.1 Est GFR (Non-Af Amer) 51.0 BUN/Creatinine Ratio 19.8 Glucose 330 H* POC Glucose POC Glucose (other) 331 H Calcium 8.6 POC Ioniz Calcium Naif 1.09 L Total Bilirubin 0.5 AST 23 ALT 25 Alkaline Phosphatase 74 Troponin I 1.310 H* NT-Pro-B Natriuret Pep 22569 H Total Protein 7.5 Albumin 3.5 Globulin 4.0 Albumin/Globulin Ratio 0.9 Beta-Hydroxybutyric Acd 7.27 H Urine Color Urine Appearance Urine pH Ur Specific [place] Urine Protein Urine Glucose (UA) Urine Ketones Urine Blood Urine Nitrite Urine Bilirubin Urine Urobilinogen Ur Leukocyte Esterase Urine WBC (Auto) Urine RBC (Auto) U Hyaline Cast (Auto) U Epithel Cells (Auto) Urine Bacteria (Auto) Influenza Type A (PCR) Neg for Influ A Influenza Type B (PCR) Neg for Influ B 09/10/18 09/10/18 09/10/18 16:06 16:35 18:37 WBC RBC Hgb POC Hgb Hct POC Hct MCV MCH MCHC RDW Std Deviation RDW Coeff of Fercho Plt Count MPV Immature Gran % (Auto) Neut % (Auto) Lymph % (Auto) [place] % (Auto) Eos % (Auto) Baso % (Auto) Immature Gran # (Auto) Neut # (Auto) Lymph # (Auto) [place] # (Auto) Eos # (Auto) Baso # (Auto) PT INR APTT PTT Ratio D-Dimer POC Sodium Sodium POC Potassium Potassium POC Chloride Chloride Carbon Dioxide POC Total CO2 Anion Gap POC Anion Gap POC BUN BUN Creatinine POC Creatinine Est Cr Clr Drug Dosing Est GFR ( Amer) Est GFR (Non-Af Amer) BUN/Creatinine Ratio Glucose POC Glucose 286 H 299 H POC Glucose (other) Calcium POC Ioniz Calcium Naif Total Bilirubin AST ALT Alkaline Phosphatase Troponin I NT-Pro-B Natriuret Pep Total Protein Albumin Globulin Albumin/Globulin Ratio Beta-Hydroxybutyric Acd Urine Color Yellow Urine Appearance Clear Urine pH 5.0 Ur Specific [place] > 1.045 H Urine Protein Negative Urine Glucose (UA) 2+ H Urine Ketones 1+ H Urine Blood Trace H Urine Nitrite Negative Urine Bilirubin Negative Urine Urobilinogen Negative Ur Leukocyte Esterase Negative Urine WBC (Auto) 0 Urine RBC (Auto) 0-4 U Hyaline Cast (Auto) 1-5 U Epithel Cells (Auto) 5-10 H Urine Bacteria (Auto) Negative Influenza Type A (PCR) Influenza Type B (PCR) Code Status & VTE Plan Code Status DNR as per RN in [facility]
[2018-09-10] MEDS ORDERED: PIPERACILL/TAZOBAC CONSULT ACTIVE PRN (19:28)
[2018-09-10] MEDS ORDERED: GLUCAGON FOR INJ 1 MG VIAL SQ PRN (20:00)
[2018-09-10] MEDS ORDERED: DEXTROSE 50% 50 ML SYRINGE IV PRN (20:00)
[2018-09-10] MEDS ORDERED: INSULIN ASPART 100 UNITS/ML 3 ML PEN SC ONE (20:00)
[2018-09-10] MEDS ORDERED: GLUCOSE 40% GEL 15 GM TUBE PO PRN (20:00)
[2018-09-10] MEDS ORDERED: CARBOHYDRATES FOR HYPOGLYCEMIA PO PRN (20:00)
[2018-09-10] MEDS ORDERED: GLUCOSE 10 TABS/TUBE PO PRN (20:00)
[2018-09-10] MEDS: ACETAMINOPHEN 1,000 MG/100 ML VIAL IV SCH (20:38)
[2018-09-10] MEDS: PANTOprazole 40 MG in SYRINGE 0 ML IV SCH (20:45)
[2018-09-10] MEDS: QUETIAPINE FUMARATE 25 MG TABLET PO SCH ×2 (20:47→21:04)
[2018-09-10] MEDS: NYSTATIN POWDER 15GM BTL EXT SCH (20:48)
[2018-09-10] MEDS: LINEZOLID 600 MG TAB PO SCH ×2 (20:48→21:04)
[2018-09-10] MEDS: TOLTERODINE TARTRATE 1 MG TAB PO SCH ×2 (20:49→21:04)
[2018-09-10] MEDS ORDERED: PIPERACILLIN/TAZOBACTAM 3.375 GM in DEXTROSE 5% 100 ML IV ONE (21:00)
[2018-09-10] MEDS ORDERED: INSULIN DETEMIR FLEXPEN/FLEX TOUCH 100 UNITS/ML 3ML SC SCH (21:00)
[2018-09-10] MEDS ORDERED: NYSTATIN POWDER 15GM BTL EXT SCH (21:00)
[2018-09-10] MEDS ORDERED: HEPARIN SOD 5,000 UNIT/0.5 ML VIAL SQ SCH (22:00)
[2018-09-10] MEDS: metroNIDAZOLE 500 MG/100 ML BAG IV SCH (22:08)
[2018-09-11] MEDS: INSULIN ASPART 100 UNITS/ML 3 ML PEN SC SCH ×5 (00:21→23:59)
[2018-09-11 01:35] LABS: BUN Creatinine Ratio 23.2 (10-20); Calcium 8.4 mg/dl (8.5-10.1); Creatinine Clr Calc Pharmacy 21.2 ml/min; Est GFR (African American) 62.6; Potassium 4.3 mmol/L (3.5-5.1)
[2018-09-11 01:43] LABS: Troponin I 2.68 ng/ml (0-0.045)
[2018-09-11] MEDS: ACETAMINOPHEN 1,000 MG/100 ML VIAL IV SCH ×3 (03:21→21:30)
[2018-09-11] MEDS ORDERED: CEFEPIME 1,000 MG in SYRINGE 0 ML IV SCH (04:00)
[2018-09-11] MEDS: Heparin IV Low Dose *NO* Bolus IV SCH (04:29)
[2018-09-11] MEDS: Heparin Adult LOW DOSE Wt-Based Dextrose 5% 25,000 units/500 mL IV SCH (04:30)
[2018-09-11] MEDS: metroNIDAZOLE 500 MG/100 ML BAG IV SCH ×3 (05:55→22:33)
[2018-09-11 06:08] LABS: Estimated Average Glucose 203 mg/dl; Hemoglobin A1C 8.7 % (4.5-5.6)
[2018-09-11 07:02] LABS: Hemoglobin 9.2 g/dL (12.0-16.0); Mean Corpuscular Hgb Conc 32.9 g/dL (32-36); Mean Corpuscular Volume 91.5 fL (80-100); Mean Platelet Volume 9.3 fL (7.4-10.4); Platelet Count 148 K/uL (130-400); RDW Coefficient of Variation 19.7 % (11.5-14.5); RDW Standard Deviation 64.9 fL (36.4-46.3); Red Blood Count 3.06 M/uL (4.2-5.4); White Blood Count 9.82 K/uL (4.8-10.8)
--- NOTE | 2018-09-11 07:25 | Ultrasound Report ---
US abdomen limited HISTORY: 77 years-old Female ABD PAIN acute right upper quadrant abdominal pain COMPARISON: CT abdomen and pelvis 09/10/2018 TECHNIQUE: Multiple real-time sonographic images of the abdominal right upper quadrant were obtained assessing grayscale appearance and color flow FINDINGS: The visualized pancreas appears unremarkable. The liver is within normal limits without focal mass or intrahepatic biliary ductal dilation. Right pleural effusion incidentally noted. Mild gallbladder distention with nonmobile cholelithiasis about the gallbladder neck. No significant posterior acoustic shadowing. The gallbladder wall is mildly thickened at 4 mm. Trace pericholecystic fluid. Sonographic Delacruz sign reported as negative. Common bile duct is normal for patient age, 6 m m. Cortical thinning noted about the right kidney without hydronephrosis. IMPRESSION: 1. Mild gallbladder distention with nonmobile cholelithiasis about the gallbladder neck. Additionally , there is associated gallbladder wall thickening with pericholecystic fluid. Although the sonographi c Delacruz sign was reported as negative, these findings are suspicious for acute cholecystitis in the appropriate clinical setting. 2. No biliary ductal dilation. 3. Right pleural effusion. The above report was generated using voice recognition software. It may contain grammatical, syntax o r spelling errors. Electronically signed by: Paramjit Rene M.D. 09/11/2018 7:24 AM
[2018-09-11] MEDS ORDERED: PERFLUTREN LIPID MICROSPHERE (DEFINITY) IV ONE (07:36)
[2018-09-11] MEDS ORDERED: INSULIN DETEMIR FLEXPEN/FLEX TOUCH 100 UNITS/ML 3ML SC SCH (09:00)
[2018-09-11] MEDS ORDERED: LOSARTAN POTASSIUM 25 MG TAB PO SCH (09:00)
[2018-09-11] MEDS: QUETIAPINE FUMARATE 25 MG TABLET PO SCH ×2 (09:19→20:52)
[2018-09-11] MEDS: FUROSEMIDE 40 MG in SYRINGE 0 ML IV SCH (09:20)
[2018-09-11] MEDS: FLUTICASONE PROPIONATE NA SPR 16 GM BTL SCH (09:20)
[2018-09-11] MEDS: LINEZOLID 600 MG TAB PO SCH ×2 (09:21→20:52)
[2018-09-11] MEDS: NYSTATIN POWDER 15GM BTL EXT SCH ×3 (09:21→20:52)
--- NOTE | 2018-09-11 09:30 | Cardiology Consultation ---
Date of Consultation September 11, 2018 Assessment & Plan (1) CHF (congestive heart failure): (2) Systolic CHF, chronic: (3) Non-ST elevation NM (NSTEMI): 77-year-old female half-way patient with past medical history of cognitive impairment due to dementia presents with apparent agitation and perhaps initial chief complaint of abdominal discomfort. She has been found to have volume overload radiographically. CT the abdomen pelvis and ultrasound were also concerning for acute cholecysti tis. On my examination the patient's abdomen was soft, nontender on deep palpation. She has no acute complaint, but is obviously not oriented either. Based on elevation of her troponin, she does appear to have had a nontransmural, (non-ST segment elevation) myocardial infarction. Her EKG is nondiagnostic due to the ventricular paced rhythm. Agree with unfractioned heparin for now. We will proceed with transthoracic echocardiogram for further assessment of her left ventricular systolic function. Agree with HIDA scan as tentatively planned. Since it is difficult to obtain adequate history from her, it is difficult to determine the characteristics of her presenting symptoms, and she could very well had a demand based myocardial infarction in the setting of known underlying ischemic heart disease from supply demand mismatch, or perhaps could have suffered an acute coronary plaque rupture. No indication for cardiac catheterization at present. For outpatient medication list is correct, she is on furosemide 20 mg daily on a as needed basis. Agree with IV furosemide for now along with IV heparin. I do not see an indication for emergent surgical intervention for cholecystitis, and therefore I am going to resume her low-dose aspirin. Her carvedilol has been placed on hold and will continue this. At this time given both congestive heart failure, with presumed underlying LV systolic function, and NM, and mildly low blood pressure, I favor holding her losartan and continuing her carvedilol. Will resume prior to hospital simvastatin. History of Present Illness Attending Physician: Valencia Sow MD History of Present Illness Angela Liu is a 77 year old female seen in cardiology consultation per the request of Dr Chapman for the evaluation of congestive heart failure. The patient's history was delineated by interview, physical exam, and review of her records. She has a documented past history of dementia, and apparently was confused upon arrival to the emergency room therefore it is difficult to determine what her baseline mental status is but she is unable to provide adequate history. She denies any subjective complaints. She is not oriented to her current hospital predicament. She denies any chest discomfort or abdominal discomfort at present. Per her [facility] record, her primary care provider is Dr. Jp Gallardo. She does not follow with [facility] cardiology as an outpatient, but had been seen in hospital consultation by Dr. Allison of our practice in March 2017. Per that note, her primary steam box tender is Dr. Bartolo Rainey, [place] [facility]. She has a complex past cardiac history as delineated below. The patient was apparently transferred from [facility] to the emergency department at [facility] on 09/10/2018, first set of vital signs taken at 1331 having been found at that time to be restless, agitated, had apparently complained of abdominal discomfort. She was also found to have hyperglycemia. She was hypoxic with a pulse oximetry of 88% on room air. CT scan of the chest revealed bilateral pleural effusions. Her proBNP was elevated, and her initial troponin was elevated at 1.3 ng / ml at baseline and has trended up to 2.02 and 2.68 ng / ml with most recent measurement having been performed overnight at 1:06 AM. EKG reveals sinus rhythm with ventricular paced QRS complexes and is thus nondiagnostic for ischemia. Telemetry reveals ongoing sinus rhythm with ventricular paced QRS complexes in the range of 80 to 90 bpm overnight without significant arrhythmia. CT of the abdomen and pelvis performed in the emergency room revealed patchy groundglass opacities throughout both lung kang with components of interstitial edema. The gallbladder was found to be distended with calcified gallstones. The gallbladder wall was thickened and edematous with mild pericholecystic stranding. The appearance was felt per the radiology report to be compatible with volume overload or perhaps acute cholecystitis. Ultrasound revealed ongoing mild gallbladder distention and cholelithiasis with thickening and pericholecystic fluid without Delacruz sign.Liver function tests have been within normal limits. PMH: Apparent history of coronary heart disease status post CABG x2 remotely in 2007 with KOWALSKI to LAD and SVG to PDA. Per prior records, she been noted to have vein graft occlusion to the PDA 2 years after her initial surgery. She has a history of of an ischemic cardiomyopathy, with past implantation of a [employer] biventricular pacemaker AICD. In March, she presented with findings of chest wall and diaphragmatic pacing and therefore her coronary sinus lead was deactivated. Most recent echocardiogram on file from March 2017 described moderate concentric left ventricular hypertrophy with hypokinesis of the basal inferior wall, preserved LVEF in the range of 55 to 60% at that time Carotid disease with carotid stent having been performed in 2009. Recent close follow-up by the [facility] wound care clinic for a right sided diabetic heel ulcer with osteomyelitis, for which patient has been on Zyvox as an outpatient. Allergies Allergy/AdvReac Type Severity Reaction Status Date / Time Bactrim Allergy Unknown . Verified 09/05/17 16:36 Penicillins Allergy Unknown . Verified 09/10/18 14:16 sulfamethoxazole Allergy Unknown . Verified 09/10/18 14:16 trimethoprim Allergy Unknown . Verified 09/10/18 14:16 atorvastatin AdvReac Intermediate MUSCLE PAIN Verified 09/10/18 14:16 capsaicin AdvReac Intermediate N/V Verified 09/10/18 14:16 diclofenac AdvReac Intermediate N/V Verified 09/10/18 14:16 Diclopak AdvReac Intermediate N/V Verified 09/05/17 13:27 rosuvastatin AdvReac Intermediate MUSCLE PAIN Verified 09/10/18 14:16 fenofibrate AdvReac Mild SORE MOUTH Verified 09/10/18 14:16 Home Medications Home Medications Medication Instructions Recorded Confirmed Type acetaminophen [Acetaminophen Extra 1,000 mg PO Q8H PRN 12/22/17 09/10/18 History Strength] albuterol sulfate [Ventolin HFA] 2 puff INHALATION Q4H PRN 12/22/17 09/10/18 History aspirin [Aspirin Low Dose] 81 mg PO QAM 12/22/17 09/10/18 History carvedilol 12.5 mg PO BIDM 12/22/17 09/10/18 History cholecalciferol (vitamin D3) 400 unit PO QAM 12/22/17 09/10/18 History fluticasone propionate 2 spray INTRANASAL DAILY 12/22/17 09/10/18 History furosemide [Lasix] 20 mg PO DAILY PRN 12/22/17 09/10/18 History gabapentin 100 mg PO BID 12/22/17 09/10/18 History insulin aspart U-100 9 unit SUBCUT QAM 12/22/17 09/10/18 History insulin aspart U-100 11 unit SUBCUT QPM 12/22/17 09/10/18 History insulin detemir U-100 [Levemir 25 unit SUBCUT HS 12/22/17 09/10/18 History FlexTouch U-100 Insuln] loratadine 10 mg PO QAM 12/22/17 09/10/18 History multivitamin 1 cap PO QAM 12/22/17 09/10/18 History ranitidine HCl 150 mg PO BID 12/22/17 09/10/18 History simvastatin 20 mg PO QAM 12/22/17 09/10/18 History tolterodine [Detrol] 1 mg PO HS 12/22/17 09/10/18 History linezolid 600 mg tablet 600 mg PO BID 07/10/18 09/10/18 History Mónica Cream 1 applic TOPICAL Q OTHER DAY 09/10/18 09/10/18 History duloxetine 30 mg PO QAM 09/10/18 09/10/18 History lorazepam 0.5 mg PO TID PRN 09/10/18 09/10/18 History losartan 25 mg PO QAM 09/10/18 09/10/18 History melatonin 3 mg PO HS 09/10/18 09/10/18 History nystatin 100,000 unit TOPICAL TID 09/10/18 09/10/18 History quetiapine 50 mg PO QAM 09/10/18 09/10/18 History quetiapine 75 mg PO HS 09/10/18 09/10/18 History Patient History Medical History Osteomyelitis (Acute) Diabetic foot ulcer associated with type 2 diabetes mellitus (Acute) Dementia (Chronic 11/01/12) Coronary artery disease (Chronic) "s/p NM" Systolic CHF, chronic (Chronic) "ischemic cardiomyopathy" History of bradycardia (Chronic) Ambulatory dysfunction (Chronic) Diabetes mellitus, type 2 (Chronic) Statin intolerance (Chronic) RADHA inhibitor intolerance (Chronic) PMR (polymyalgia rheumatica) (Chronic) Carotid arterial disease (Chronic) Chest pain Outbursts of anger (Acute) Surgical History Status post coronary artery bypass grafting (Chronic) Status post cardiac pacemaker procedure (Chronic) Status post cataract extraction (Chronic) Status post tubal ligation (Chronic) Family History Other No significant family history Social History Preferred Language: Bahamian Molder Labels Required: No Beliefs That Will Affect Care: None marital status: / Current Living Situation: Personal Care Facility current occupational status: retired Other Information That Helps Us Care for You: No Feels Safe at Home: Yes Smoking Status: Never smoker Hx Alcohol Use: No Hx Substance Use: No Results & Data Vital Signs (Past 12 Hours) Vital Signs Temp Pulse Resp BP Pulse Ox 09/11/18 03:18 37.1 C 90 19 112/84 100 09/10/18 23:06 37.0 C 92 H 19 143/71 H 98 (1) CHF (congestive heart failure) Heart failure chronicity: unspecified Heart failure type: unspecified Qualified Code(s): I50.9 - Heart failure, unspecified
[2018-09-11] MEDS ORDERED: SIMVASTATIN 20 MG TAB PO STA (09:35)
[2018-09-11] MEDS: ASPIRIN 81 MG ECTAB PO SCH (10:34)
[2018-09-11] MEDS: CARVEDILOL 12.5 MG TAB PO SCH ×2 (10:34→20:51)
[2018-09-11] MEDS: PANTOprazole 40 MG in SYRINGE 0 ML IV SCH (10:35)
[2018-09-11 11:03] LABS: Partial Thromboplastin Ratio 1.6; Partial Thromboplastin Time 42.2 Seconds (21.0-31.0)
--- NOTE | 2018-09-11 11:25 | Surgery Consultation ---
Date of Consultation September 11, 2018 Assessment & Plan (1) Cholelithiasis: Ms. Liu is a 77 yo female with multiple comorbidities, admitted with acute CHF exacerbation, hypoxia,and elevated troponins concerning for NSTEMI. CT scan and U/S show cholelithiasis, mild gallbladder wall thickening, and mild pericholecystitic fluid, which normally would be concerning for acute cholecystitis, however, it could be secondary to her CHF. Also, LFTs and WBC are within normal limits. - Recheck LFTs today. - Recommend HIDA scan to further evaluate. - f/u urine culture to assess for UTI as potential source of symptoms. - If HIDA is positive, given NSTEMI and other comorbidities I would like to discuss potential treatment options with Cardiology and with the patient's family including antibiotic treatment, which is less often chosen but in her situation may be an option, percutaneous cholecystostomy tube placement, vs cholecystectomy. History of Present Illness Reason for Consultation: Possible cholecystitis Requesting Physician: Pedro Chapman MD Attending Physician: Valencia Sow MD History of Present Illness Ms. Liu is a 77 yo female with PMHx significant for but not limited to, ischemic cardiomyopathy, s/p pacemaker and ICD placement, hx of VT, HTN, carotid stenosis, PVD, PAD, DM, GERD, ?polymyalgia rheumatica and dementia who resides in a SNF and was brought to [facility] with hyperglycemia, possible abdominal pain and agitation. Per review of records patient is agitated at baseline. I am unable to obtain a review of systems or get an accurate assessment from the patient of current symptoms due to her dementia. When asked about abdominal pain she stated her abdomen "was big" and "out to here" (motioned with her arms) but further elaborated that this was "from her kids" and had improved. She denied any abdominal pain. CT scan was obtained showing a distended gallbladder, cholelithiasis and mild pericholecystic stranding. LFTs were within normal limits. Dr. Baird was contacted overnight, who recommended HIDA scan. As this could not be completed overnight an U/S was obtained by the primary team. WBC and LFts were within normal limits. U/A was obtained and culture is pending, and Troponin and BNP were elevated. In addition to the above findings, per Hospitalist evaluation patient was noted to have an acute CHF exacerbation, hypoxia likely secondary to CHF exacerbation and possible pneumonia. Allergies Allergy/AdvReac Type Severity Reaction Status Date / Time Bactrim Allergy Unknown . Verified 09/05/17 16:36 Penicillins Allergy Unknown . Verified 09/10/18 14:16 sulfamethoxazole Allergy Unknown . Verified 09/10/18 14:16 trimethoprim Allergy Unknown . Verified 09/10/18 14:16 atorvastatin AdvReac Intermediate MUSCLE PAIN Verified 09/10/18 14:16 capsaicin AdvReac Intermediate N/V Verified 09/10/18 14:16 diclofenac AdvReac Intermediate N/V Verified 09/10/18 14:16 Diclopak AdvReac Intermediate N/V Verified 09/05/17 13:27 rosuvastatin AdvReac Intermediate MUSCLE PAIN Verified 09/10/18 14:16 fenofibrate AdvReac Mild SORE MOUTH Verified 09/10/18 14:16 Home Medications Home Medications Medication Instructions Recorded Confirmed Type acetaminophen [Acetaminophen Extra 1,000 mg PO Q8H PRN 12/22/17 09/10/18 History Strength] albuterol sulfate [Ventolin HFA] 2 puff INHALATION Q4H PRN 12/22/17 09/10/18 History aspirin [Aspirin Low Dose] 81 mg PO QAM 12/22/17 09/10/18 History carvedilol 12.5 mg PO BIDM 12/22/17 09/10/18 History cholecalciferol (vitamin D3) 400 unit PO QAM 12/22/17 09/10/18 History fluticasone propionate 2 spray INTRANASAL DAILY 12/22/17 09/10/18 History furosemide [Lasix] 20 mg PO DAILY PRN 12/22/17 09/10/18 History gabapentin 100 mg PO BID 12/22/17 09/10/18 History insulin aspart U-100 9 unit SUBCUT QAM 12/22/17 09/10/18 History insulin aspart U-100 11 unit SUBCUT QPM 12/22/17 09/10/18 History insulin detemir U-100 [Levemir 25 unit SUBCUT HS 12/22/17 09/10/18 History FlexTouch U-100 Insuln] loratadine 10 mg PO QAM 12/22/17 09/10/18 History multivitamin 1 cap PO QAM 12/22/17 09/10/18 History ranitidine HCl 150 mg PO BID 12/22/17 09/10/18 History simvastatin 20 mg PO QAM 12/22/17 09/10/18 History tolterodine [Detrol] 1 mg PO HS 12/22/17 09/10/18 History linezolid 600 mg tablet 600 mg PO BID 07/10/18 09/10/18 History Mónica Cream 1 applic TOPICAL Q OTHER DAY 09/10/18 09/10/18 History duloxetine 30 mg PO QAM 09/10/18 09/10/18 History lorazepam 0.5 mg PO TID PRN 09/10/18 09/10/18 History losartan 25 mg PO QAM 09/10/18 09/10/18 History melatonin 3 mg PO HS 09/10/18 09/10/18 History nystatin 100,000 unit TOPICAL TID 09/10/18 09/10/18 History quetiapine 50 mg PO QAM 09/10/18 09/10/18 History quetiapine 75 mg PO HS 09/10/18 09/10/18 History Patient History Medical History Osteomyelitis (Acute) Diabetic foot ulcer associated with type 2 diabetes mellitus (Acute) Dementia (Chronic 11/01/12) Coronary artery disease (Chronic) "s/p VT" Systolic CHF, chronic (Chronic) "ischemic cardiomyopathy" History of bradycardia (Chronic) Ambulatory dysfunction (Chronic) Diabetes mellitus, type 2 (Chronic) Statin intolerance (Chronic) RADHA inhibitor intolerance (Chronic) PMR (polymyalgia rheumatica) (Chronic) Carotid arterial disease (Chronic) Chest pain Outbursts of anger (Acute) Surgical History Status post coronary artery bypass grafting (Chronic) Status post cardiac pacemaker procedure (Chronic) Status post cataract extraction (Chronic) Status post tubal ligation (Chronic) Family History Other No significant family history Social History Preferred Language: Luxembourgish [employer] Required: No Beliefs That Will Affect Care: None marital status: / Current Living Situation: Personal Care Facility current occupational status: retired Other Information That Helps Us Care for You: No Feels Safe at Home: Yes Smoking Status: Never smoker Hx Alcohol Use: No Hx Substance Use: No Review of Systems Review of Systems: Unobtainable due to cognitive status Physical Exam Constitutional: no acute distress Eyes: PERRL, conjunctivae normal, anicteric sclerae ENMT: external ear and nose normal, oropharynx normal Neck: normal visual inspection Respiratory: normal respiratory effort Cardiovascular: Rate/Rhythm: regular rate Gastrointestinal (Abdomen): soft, nondistended, nontender (though exam is unreliable secondary to the patient's mental status/baseline dementia) Skin: no rashes, warm and dry no jaundice Neurologic: confused (per report at baseline), is able to complete sentences and answer questions but answers are not appropriate. Results & Data Vital Signs (Past 12 Hours) Vital Signs Temp Pulse Pulse Resp BP BP Pulse Ox 09/11/18 10:40 87 26 H 123/61 97 09/11/18 07:00 84 22 09/11/18 03:18 37.1 C 90 19 112/84 100 Laboratory Results Laboratory Tests 09/10/18 09/11/18 14:06 06:49 WBC 7.14 9.82 RBC 3.41 L 3.06 L Hgb 10.0 L 9.2 L Hct 31.0 L 28.0 L MCV 90.9 91.5 MCH 29.3 30.1 MCHC 32.3 32.9 RDW Std Deviation 64.1 H 64.9 H RDW Coeff of Fercho 19.5 H 19.7 H Plt Count 163 148 MPV 9.9 9.3 Immature Gran % (Auto) 0.3 Neut % (Auto) 78.8 Lymph % (Auto) 15.7 [place] % (Auto) 5.2 Eos % (Auto) 0.0 Baso % (Auto) 0.0 Immature Gran # (Auto) 0.02 Neut # (Auto) 5.63 Lymph # (Auto) 1.12 L [place] # (Auto) 0.37 Eos # (Auto) 0.00 Baso # (Auto) 0.00 Laboratory Tests 09/10/18 09/11/18 14:06 10:44 PT 10.6 INR 1.0 APTT 27.3 42.2 H PTT Ratio 1.0 1.6 D-Dimer 760 H* Laboratory Tests 09/10/18 09/10/18 09/11/18 14:06 19:50 01:06 Troponin I 1.310 H* 2.020 H* 2.680 H* NT-Pro-B Natriuret Pep 10862 H Laboratory Tests 09/10/18 14:06 Total Bilirubin 0.5 AST 23 ALT 25 Alkaline Phosphatase 74 Laboratory Tests 09/10/18 09/10/18 09/10/18 13:36 14:06 14:15 POC Sodium 140 Sodium 139 POC Potassium 4.3 Potassium 4.4 POC Chloride 103 Chloride 104 Carbon Dioxide 26 POC Total CO2 24 Anion Gap 9.0 POC Anion Gap 18.0 POC BUN 22 H BUN 21 H Creatinine 1.06 POC Creatinine 0.8 Est Cr Clr Drug Dosing 39.8 Est GFR ( Amer) 59.1 Est GFR (Non-Af Amer) 51.0 BUN/Creatinine Ratio 19.8 Glucose 330 H* POC Glucose 336 H* POC Glucose (other) 331 H Estimat Average Glucose Calcium 8.6 POC Ioniz Calcium Naif 1.09 L Total Protein 7.5 Albumin 3.5 Globulin 4.0 Albumin/Globulin Ratio 0.9 Beta-Hydroxybutyric Acd 7.27 H 09/10/18 09/10/18 09/10/18 16:06 18:37 20:15 POC Sodium Sodium POC Potassium Potassium POC Chloride Chloride Carbon Dioxide POC Total CO2 Anion Gap POC Anion Gap POC BUN BUN Creatinine POC Creatinine Est Cr Clr Drug Dosing Est GFR ( Amer) Est GFR (Non-Af Amer) BUN/Creatinine Ratio Glucose POC Glucose 286 H 299 H 309 H* POC Glucose (other) Estimat Average Glucose Calcium POC Ioniz Calcium Naif Total Protein Albumin Globulin Albumin/Globulin Ratio Beta-Hydroxybutyric Acd 09/11/18 09/11/18 09/11/18 00:09 01:06 01:06 POC Sodium Sodium 142 POC Potassium Potassium 4.3 POC Chloride Chloride 108 H Carbon Dioxide 30 POC Total CO2 Anion Gap 4.0 POC Anion Gap POC BUN BUN 23 H Creatinine 1.01 POC Creatinine Est Cr Clr Drug Dosing 21.2 Est GFR ( Amer) 62.6 Est GFR (Non-Af Amer) 54.0 BUN/Creatinine Ratio 23.2 H Glucose 221 H POC Glucose 235 H POC Glucose (other) Estimat Average Glucose 203 Calcium 8.4 L POC Ioniz Calcium Naif Total Protein Albumin Globulin Albumin/Globulin Ratio Beta-Hydroxybutyric Acd 09/11/18 09/11/18 05:56 09:26 POC Sodium Sodium POC Potassium Potassium POC Chloride Chloride Carbon Dioxide POC Total CO2 Anion Gap POC Anion Gap POC BUN BUN Creatinine POC Creatinine Est Cr Clr Drug Dosing Est GFR ( Amer) Est GFR (Non-Af Amer) BUN/Creatinine Ratio Glucose POC Glucose 188 H 136 H POC Glucose (other) Estimat Average Glucose Calcium POC Ioniz Calcium Naif Total Protein Albumin Globulin Albumin/Globulin Ratio Beta-Hydroxybutyric Acd Laboratory Tests 06/07/18 08/22/18 09/11/18 10:58 06:06 01:06 Hemoglobin A1c 10.4 H 9.2 H 8.7 H Laboratory Tests 09/10/18 16:35 Urine Color Yellow Urine Appearance Clear Urine pH 5.0 Ur Specific [place] > 1.045 H Urine Protein Negative Urine Glucose (UA) 2+ H Urine Ketones 1+ H Urine Blood Trace H Urine Nitrite Negative Urine Bilirubin Negative Urine Urobilinogen Negative Ur Leukocyte Esterase Negative Urine WBC (Auto) 0 Urine RBC (Auto) 0-4 U Hyaline Cast (Auto) 1-5 U Epithel Cells (Auto) 5-10 H Urine Bacteria (Auto) Laboratory Tests 09/10/18 16:00 Influenza Type A (PCR) Neg for Influ A Influenza Type B (PCR) Neg for Influ B Urine Culture: Pending Blood Culture: Pending Diagnostic Findings (09/10/18) CXR: FINDINGS: An AP, portable, upright chest radiograph is compared to study dated 12/22/2017. The examination is degraded by portable technique and patient rotation. The patient is status post midline sternotomy. The heart is enlarged and there is atherosclerotic calcification of the thoracic aorta. A 3-lead cardiac AICD is unchanged in position. There is pulmonary vascular congestion and mild interstitial edema. There are small pleural effusions with bibasilar consolidation. No pneumothorax is seen. The skeletal structures are osteopenic. The bony thorax is grossly intact. IMPRESSION: 1. Cardiomegaly and AICD. There is evidence of congestive failure and mild interstitial edema. 2. Small pleural effusions with bibasilar consolidation. (09/10/18) CT Abdomen/Pelvis AND CTA Chest: CLINICAL HISTORY: Hypoxia. Elevated d-dimer. Generalized abdominal pain. Vomiting. COMPARISON STUDY: Chest x-ray dated 09/10/2018. CT angiogram of the chest, abdomen, and pelvis dated 11/01/2012. TECHNIQUE: Following the IV administration of 120 of Optiray 320, CT angiogram of the chest is performed from the upper abdomen to the thoracic inlet utilizing the pulmonary embolus protocol. Images are reviewed in the axial, sagittal, coronal planes. 3-D MIPS images are created and assessed. Subsequently, CT scan of the abdomen and pelvis was performed from the lung bases to the proximal femora. Images are reviewed in the axial, sagittal, and coronal planes. IV contrast was administered without complication. A dose lowering technique was utilized adhering to the principles of ALARA. The examination is degraded by motion artifact, as well as by streak artifact from the arms which could not be elevated above the chest or abdomen. CT DOSE: 1385.36 mGy.cm FINDINGS: CHEST: Thyroid: Imaged portions of the thyroid gland are normal in size and heterogeneous in attenuation. Thoracic aorta: There is advanced atherosclerotic calcification of the thoracic aorta, which is normal in caliber and demonstrates standard 3-vessel arch anatomy. The thoracic aorta is not well opacified. Pulmonary vasculature: The main pulmonary arteries are dilated suggesting pulmonary artery hypertension. There are no filling defects identified in the main, lobar, or segmental pulmonary arteries to indicate pulmonary embolus. Evaluation of the peripheral branches is degraded by motion artifact. Heart: The patient is status post midline sternotomy. A cardiac AICD is present within the left chest wall. The heart is enlarged and without pericardial effusion. The coronary arteries are densely calcified. Lungs and pleural spaces: Evaluation of lung parenchyma is degraded by motion artifact. There is diffuse intralobular septal thickening. Scattered groundglass opacities are seen throughout both lungs. There are small to moderate pleural effusions with associated atelectasis. The trachea and central airways appear clear. Mediastinum: There is no mediastinal lymphadenopathy. Adrianna: Clear. Axillae: There is no axillary lymphadenopathy. Bony thorax: The skeletal structures are heterogeneously osteopenic. Degenerative change and hyperkyphosis are seen throughout the thoracic spine. There is a mild superior endplate compression deformity of T10. No lytic or blastic lesions are identified. ABDOMEN AND PELVIS: Liver: The contrast-enhanced liver is enlarged, measuring 21.2 cm in length. The liver is otherwise normal in contour and attenuation. There is no intrahepatic or ductal dilatation. The hepatic veins and portal veins are patent. Periportal edema is noted. Gallbladder: There are calcified gallstones. The gallbladder is distended. The gallbladder wall is thickened and there is pericholecystic stranding. The appearance is highly concerning for acute cholecystitis. Spleen: Normal in size and attenuation. There are calcified splenic granulomas. Pancreas: Atrophic and grossly unremarkable. Adrenal glands: Unremarkable. Kidneys: The contrast enhanced kidneys demonstrate cortical atrophy and are without hydronephrosis. The kidneys enhance symmetrically. Bilateral renal cysts measure up to 4 cm. Additional subcentimeter cortical hypodensities also likely represent cysts but are too small for definitive characterization. Abdominal vasculature: The abdominal aorta is normal in course and caliber noting advanced atherosclerotic calcification. Bowel: There is no bowel obstruction. Mild colonic fecal retention is observed. There is a duodenal diverticulum. The appendix is not identified. Peritoneum: There is no intraperitoneal free air or abdominal ascites. Lymphadenopathy: None. Pelvic viscera: The bladder is distended and there is circumferential bladder wall thickening. The uterus and adnexa are normal as visualized. Skeletal structures: The skeletal structures are heterogeneously osteopenic. There is a mild inferior endplate compression deformity of L3. This is age indeterminant but new from 2013. Lumbar several spondylosis is noted. Sclerotic change is seen in the sacroiliac joints. Arthritic changes observed in the hips. There are healed left pubic ring fractures. No lytic or blastic lesions are seen. IMPRESSION: 1. Streak and motion compromised examination. 2. There is no evidence of pulmonary embolus in the main, lobar, or segmental pulmonary arteries. 3. Cardiomegaly and AICD with evidence of congestive failure. 4. Small to moderate pleural effusions with bibasilar atelectasis. 5. Patchy groundglass opacities are seen throughout both lungs. This likely represents a component of interstitial edema. Correlate clinically for evidence of a superimposed infectious/inflammatory pneumonitis. 6. The gallbladder is distended and there are calcified gallstones. The gallbladder wall is thickened and edematous, and there is mild pericholecystic stranding. Although this could be related to volume overload, the appearance is concerning for acute cholecystitis. Correlation with clinical findings and liver function studies will be required. Consider ultrasound for further assessment. 7. The bladder is distended and there is circumferential bladder wall thickening . Correlate clinically and with urinalysis. 8. Hepatomegaly. 9. Additional findings as above. (09/11/18) U/S RUQ: US abdomen limited HISTORY: 77 years-old Female ABD PAIN acute right upper quadrant abdominal pain COMPARISON: CT abdomen and pelvis 09/10/2018 TECHNIQUE: Multiple real-time sonographic images of the abdominal right upper quadrant were obtained assessing grayscale appearance and color flow FINDINGS: The visualized pancreas appears unremarkable. The liver is within normal limits without focal mass or intrahepatic biliary ductal dilation. Right pleural effusion incidentally noted. Mild gallbladder distention with nonmobile cholelithiasis about the gallbladder neck. No significant posterior acoustic shadowing. The gallbladder wall is mildly thickened at 4 mm. Trace pericholecystic fluid. Sonographic Delacruz sign reported as negative. Common bile duct is normal for patient age, 6 mm. Cortical thinning noted about the right kidney without hydronephrosis. IMPRESSION: 1. Mild gallbladder distention with nonmobile cholelithiasis about the gallbladder neck. Additionally, there is associated gallbladder wall thickening with pericholecystic fluid. Although the sonographic Delacruz sign was reported as negative, these findings are suspicious for acute cholecystitis in the appropriate clinical setting. 2. No biliary ductal dilation. 3. Right pleural effusion.
[2018-09-11] MEDS ORDERED: HEPARIN IV BOLUS 2,000 UNITS in SYRINGE 0 ML IV ONE (12:15)
[2018-09-11 13:30] LABS: Bilirubin Direct 0.1 mg/dl (0-0.2); Bilirubin,Total 0.4 mg/dl (0.2-1); Total Protein 6.8 gm/dl (6.4-8.2)
[2018-09-11] MEDS ORDERED: SINCALIDE 1.4 MCG in 0.9 % SODIUM CHLORIDE 100 ML IV ONE (14:00)
[2018-09-11] MEDS ORDERED: CEFEPIME CONSULT ACTIVE PRN (14:37)
--- NOTE | 2018-09-11 14:41 | Pharmacy Report ---
Pharmacy Glycemic Short Note 2 - Date of Service September 11, 2018 - Glycemic Short BSG Results (Last 24 hours): 09/10/18 09/10/18 09/10/18 14:06 14:15 16:06 Glucose 330 H* POC Glucose 286 H POC Glucose (other) 331 H 09/10/18 09/10/18 09/11/18 18:37 20:15 00:09 Glucose POC Glucose 299 H 309 H* 235 H POC Glucose (other) 09/11/18 09/11/18 09/11/18 01:06 05:56 09:26 Glucose 221 H POC Glucose 188 H 136 H POC Glucose (other) 09/11/18 12:21 Glucose POC Glucose 152 H POC Glucose (other) OUTPATIENT ANTIDIABETIC REGIMEN: * Levemir 25 units HS * Novolog 9 units qam, 11 units qpm ASSESSMENT: * Patient BSG down trending nicely after 15 units of levemir last evening and 5 units this morning. Will place on a sliding scale this evening with total dose not to exceed 20 units while NPO. PLAN FOR INPATIENT GLYCEMIC CONTROL: * Hold outpatient oral diabetes medications * Basal insulin * Levemir 5 units this morning * Levemir 10 or 15 units SQ based on BSG this evening (See order protocol) * Bolus insulin * NovoLog per scale ACHS or Q6hrs while NPO * Goal Range: Low 120 mg/dL - High 150 mg/dL * Correction Factor: 25 mg/dL/unit * Nutritional / Prandial insulin per carb ratio of 1 unit per 11 grams CHO consumed
[2018-09-11] MEDS ORDERED: Nursing to Pharmacy Communication ONE (15:03)
--- NOTE | 2018-09-11 15:48 | Hospitalist Progress Note ---
Date of Service September 11, 2018 Assessment & Plan (1) Abdominal pain: Rule out cholecystitis, gastritis, peptic ulcer disease CT abdomen and pelvis: Significant for Patchy groundglass opacities are seen throughout both lungs. This likely represents a component of interstitial edema. Correlate clinically for evidence of a superimposed infectious/inflammatory pneumonitis. The gallbladder is distended and there are calcified gallstones. The gallbladder wall is thickened and edematous, and there is mild pericholecystic stranding. Although this could be related to volume overload, the appearance is concerning for acute cholecystitis. Correlation with clinical findings and liver function studies will be required. Consider ultrasound for further assessment. The bladder is distended and there is circumferential bladder wall thickening. Correlate clinically and with urinalysis. Additional findings as noted in the full report. LFTs within normal limits Has been on Zosyn and minimal amount of IV fluid Continue IV Protonix General surgery consulted-appreciate input and recommendation HIDA scan done but not been reported yet If surgery and/or any intervention required that has to be done following discussion with the rn nicu and family members Non-ST elevation [place] Evidenced by increasing troponin Echo showed large sized apical, inferior, posterior and lateral wall motion abnormality with hypokinesis to akinesis of the segments LV systolic function is reduced with EF of 30 to 35% Appreciate cardiology input and recommendation Acute CHF exacerbation, history of ischemic cardiomyopathy, status post pacemaker placement ICD placement Patient usually takes Lasix [address] chest confirms bilateral pleural effusions Lasix 40 mg IV ordered Continue to monitor diuresis and titrate Lasix accordingly Cardiology service consulted-appreciate input and recommendation Hypoxia, likely secondary to CHF exacerbation, possible pneumonia Treatment of CHF as per #2 Patient will be on Zosyn IV Wean off oxygen accordingly Hyperglycemia, diabetes type 2 Patient takes aspart and Lantus Missed recent admissions 300s, no anion gap Pharmacy glycemic control consulted Rule out UTI Urinalysis suggestive of possible UTI Currently on Zosyn for possible cholecystitis Urine culture and blood culture ordered-pending Hypertension Continue usual carvedilol and losartan Dementia As per senior staff specialized employment in [facility] senior care [facility], the patient is usually confused, restless, yelling Continue usual Seroquel Confusion likely exacerbated by underlying infection and CHF exacerbation Ativan as needed IV ordered Haldol being avoided secondary to prolonged QT of 549 Acute confusion secondary to illness or could be progression of dementia DVT prophylaxis Heparin CODE STATUS DNR as per staff of [facility] Disposition Pending Anticipate discharge to [facility] medically stable Subjective 09/11 The patient was seen and examined in telemetry unit 77-year-old female with history of ischemic cardiomyopathy, status post pacemaker and ICD placement, diabetes, hypertension, PVD, GERD, dementia, Resident of [facility], presenting with abdominal pain and elevated blood glucose. She is same pleasantly confused but denies any acute symptoms She complains of some upper abdominal discomfort on further questioning Denies any chest pain and/or palpitation Review of Systems Review of Systems: All systems reviewed and are unremarkable except as noted below Constitutional: + malaise and + weakness Gastrointestinal: + bloating and + nausea Neurologic: + generalized weakness Alert and awake. Pleasantly confused Physical Exam Physical Exam: Minimal distress at rest Constitutional: + ill appearing Eyes: PERRL, conjunctivae normal, anicteric sclerae ENMT: external ear and nose normal, oropharynx normal Neck: trachea midline, no thyromegaly Respiratory: + respiratory distress (Minimal distress at rest) Auscultation: + diminished lung sounds and + crackles (Minimally at the bases) Cardiovascular: Rate/Rhythm: regular rate and regular rhythm Gastrointestinal (Abdomen): Inspection/Auscultation: abdomen normal to inspection Percussion/Palpation: abdomen soft; abdomen nontender Neurologic: moves all extremities Generally weak and lethargic. Pleasantly confused Lymphatic: no cervical or axillary lymphadenopathy Results & Data Vital Signs (Past 12 Hours) Vital Signs Temp Pulse Resp BP Pulse Ox 09/11/18 11:30 37.0 C 24 98/60 L 95 09/11/18 11:22 89/63 L 09/11/18 11:21 85 L 09/11/18 10:40 87 26 H 123/61 97 09/11/18 07:00 84 22 Laboratory Results Short CBC 09/11/18 Range/Units 06:49 WBC 9.82 (4.8-10.8) K/uL Hgb 9.2 L (12.0-16.0) g/dL Hct 28.0 L (37-47) % Plt Count 148 (130-400) K/uL BMP 09/11/18 01:06 Sodium 142 Potassium 4.3 Chloride 108 H Carbon Dioxide 30 BUN 23 H Creatinine 1.01 Glucose 221 H Calcium 8.4 L Cardiac Enzymes 09/10/18 09/11/18 Range/Units 19:50 01:06 Troponin I 2.020 H* 2.680 H* (0-0.045) ng/ml Liver Function 09/11/18 Range/Units 06:50 Total Bilirubin 0.4 (0.2-1) mg/dl Direct Bilirubin 0.1 (0-0.2) mg/dl AST 19 (15-37) U/L ALT 22 (12-78) U/L Alkaline Phosphatase 56 (45-117) U/L Albumin 3.0 L (3.4-5.0) gm/dl Urine 09/10/18 Range/Units 16:35 Urine Color Yellow Urine Appearance Clear (Clear) Urine pH 5.0 (4.5-7.5) Ur Specific [place] > 1.045 H (1.000-1.030) Urine Protein Negative (Negative) Urine Glucose (UA) 2+ H (Negative) Medications Administered Current Inpatient Medications Aspirin (Ecotrin Ectab) 81 mg PO QAM [facility] Stop: 10/11/18 09:44 Last Admin: 09/11/18 10:34 Dose: 81 mg Documented by: Carvedilol (Coreg) 12.5 mg PO BID [facility] Stop: 10/11/18 09:44 Last Admin: 09/11/18 10:34 Dose: 12.5 mg Documented by: Dextrose (Dextrose 50%) 25 - 50 ml IV UD PRN; Protocol PRN Reason: Hypoglycemia Protocol Stop: 10/10/18 19:59 Fluticasone Propionate (Flonase) 2 sprays NA DAILY [facility] Stop: 10/11/18 08:59 Last Admin: 09/11/18 09:20 Dose: 2 sprays Documented by: Glucagon (Glucagen) 1 mg SQ UD PRN; Protocol PRN Reason: Hypoglycemia Protocol Stop: 10/10/18 19:59 Glucose (Glucose 40%) 15 - 30 gm PO UD PRN; Protocol PRN Reason: Hypoglycemia Protocol Stop: 10/10/18 19:59 Glucose (Dex4 Glucose) 4 - 8 tabs PO UD PRN; Protocol PRN Reason: Hypoglycemia Protocol Stop: 10/10/18 19:59 Acetaminophen (Ofirmev) 1,000 mg in 100 mls @ 400 mls/hr IV Q8H [facility] Stop: 10/10/18 19:59 Last Infusion: 09/11/18 12:42 Dose: Infused Documented by: Furosemide 40 mg/ Syringe 4 mls @ 4 mls/min IV DAILY [facility] Stop: 10/11/18 08:59 Last Admin: 09/11/18 09:20 Dose: 4 mls/min Documented by: Pantoprazole Sodium 40 mg/ (Syringe) 10 mls @ 5 mls/min IV DAILY@1100 [facility] Stop: 09/14/18 11:01 Last Admin: 09/11/18 10:35 Dose: 5 mls/min Documented by: Metronidazole (Flagyl) 500 mg in 100 mls @ 100 mls/hr IV Q8 [facility] Stop: 09/20/18 21:59 Last Infusion: 09/11/18 07:18 Dose: Infused Documented by: Heparin Sodium/Dextrose (Heparin Sodium/Dextrose) 25,000 units in 500 mls @ 14 mls/hr IV .Q24H [facility]; Protocol Stop: 10/11/18 04:29 Last Titration: 09/11/18 11:28 Dose: 700 units/hr, 14 mls/hr Documented by: Cefepime HCl 1,000 mg/ Syringe 11.3 mls @ 5.5 mls/min IV Q24H [facility] Stop: 09/20/18 04:01 Insulin Aspart (Novolog Flexpen) 0 units SC Q6 [facility] Stop: 10/11/18 00:00 Last Admin: 09/11/18 12:25 Dose: 1 units Documented by: Insulin Detemir (Levemir Flextouch) 0 units SC HS [facility]; Protocol Stop: 10/11/18 20:59 Ioversol (Optiray 320 125ml) 120 ml IV ONCE PRN PRN Reason: Interaction Checking Stop: 09/14/18 14:32 Last Admin: 09/10/18 14:34 Dose: 120 ml Documented by: Linezolid (Zyvox) 600 mg PO BID [facility] Stop: 09/20/18 20:59 Last Admin: 09/11/18 09:21 Dose: 600 mg Documented by: Lorazepam (Ativan) 0.5 mg PO TID PRN PRN Reason: Anxiety Stop: 10/10/18 18:25 Miscellaneous (Order Awaiting Action) 1 ea N/A QS [facility] Stop: 10/11/18 00:00 Last Admin: 09/11/18 08:30 Dose: Not Given Documented by: Miscellaneous (Order Awaiting Action) 1 ea N/A QS [facility] Stop: 10/11/18 00:00 Last Admin: 09/11/18 08:31 Dose: Not Given Documented by: Miscellaneous (Carbohydrates For Hypoglycemia) 15 - 30 gm PO UD PRN PRN Reason: Hypoglycemia Treatment Stop: 10/10/18 19:59 Miscellaneous Information (Consult Glycemic Management Pharmacy) 1 ea N/A UD PRN PRN Reason: Consult Stop: 10/10/18 19:23 Miscellaneous Information (Cefepime Consult Active) 1 ea N/A UD PRN PRN Reason: Consult Stop: 10/11/18 14:36 Nystatin (Mycostatin) 1 appln EXT TID [facility] Stop: 10/10/18 20:59 Last Admin: 09/11/18 09:21 Dose: 1 appln Documented by: Quetiapine Fumarate (Seroquel) 50 mg PO QAM [facility] Stop: 10/11/18 08:59 Last Admin: 09/11/18 09:19 Dose: 50 mg Documented by: Quetiapine Fumarate (Seroquel) 75 mg PO HS [facility] Stop: 10/10/18 20:59 Last Admin: 09/10/18 21:04 Dose: Not Given Documented by: Simvastatin (Zocor) 20 mg PO PM [facility] Stop: 10/12/18 20:59 Tolterodine Tartrate (Detrol) 1 mg PO HS [facility] Stop: 10/10/18 20:59 Last Admin: 09/10/18 21:04 Dose: Not Given Documented by:
[2018-09-11] MEDS ORDERED: LORazepam 0.25 MG/0.5 ML VIAL IV STA (16:00)
--- NOTE | 2018-09-11 16:25 | Nuclear Medicine Report ---
NUCLEAR MEDICINE HEPATOBILIARY SCAN WITH GALLBLADDER EJECTION FRACTION CLINICAL HISTORY: Abdominal pain. Evaluate for acute cholecystitis. COMPARISON: CT of the abdomen and pelvis September 10, 2018. Right upper quadrant ultrasound September 11, 2018. TECHNIQUE: 5.5 mCi of technetium 99m Choletec IV was injected at 1:30 PM on September 11, 2018. Immediate ly following injection, imaging of the abdomen was carried out for 60 minutes in the anterior project ion. At this time, 1.4 mcg of Sincalide was injected IV as per protocol. Imaging was performed for an additional 45 minutes to estimate a gallbladder ejection fraction. FINDINGS: Hepatic uptake of radiotracer is prompt and homogeneous. Activity is identified within the gallbladder at 20 minutes. Common bile duct activity is noted at 10 minutes. Small bowel activity is noted at 15 minutes. Gallbladder ejection fraction was estimated at 51%. Normal is greater than 30-3 5%. IMPRESSION: 1. No evidence for acute or chronic cholecystitis. 2. Normal gallbladder ejection fraction of 51%. Electronically signed by: Salvador Dhillon M.D. 09/11/2018 4:24 PM
[2018-09-11 17:46] LABS: Partial Thromboplastin Ratio 1.8
[2018-09-11 17:48] LABS: Partial Thromboplastin Time 49.3 Seconds (21.0-31.0)
[2018-09-11] MEDS: TOLTERODINE TARTRATE 1 MG TAB PO SCH (20:51)
[2018-09-11] MEDS: INSULIN DETEMIR FLEXPEN/FLEX TOUCH 100 UNITS/ML 3ML SC SCH (22:31)
[2018-09-12] MEDS ORDERED: CEFEPIME 1,000 MG in SYRINGE 0 ML IV SCH (04:00)
[2018-09-12] MEDS: ACETAMINOPHEN 1,000 MG/100 ML VIAL IV SCH ×3 (04:07→20:02)
[2018-09-12] MEDS: metroNIDAZOLE 500 MG/100 ML BAG IV SCH ×2 (05:40→13:20)
[2018-09-12 06:06] LABS: Basophils # (auto) 0.02 K/uL (0-0.2); Basophils % (auto) 0.2 %; Eosinophils # (auto) 0.22 K/uL (0-0.5); Eosinophils % (auto) 2.6 %; Hematocrit (blood only) 26.6 % (37-47); Hemoglobin 8.6 g/dL (12.0-16.0); Immature Granulocytes # (auto) 0.02 K/uL (0.00-0.02); Immature Granulocytes % (auto) 0.2 %; Lymphocytes # (auto) 2.39 K/uL (1.2-3.4); Lymphocytes % (auto) 28.4 %; Mean Corpuscular Hgb Conc 32.3 g/dL (32-36); Mean Corpuscular Volume 91.7 fL (80-100); Mean Platelet Volume 9.6 fL (7.4-10.4); Monocytes # (auto) 1.34 K/uL (0.11-0.59); Monocytes % (auto) 15.9 %; Neutrophils # (auto) 4.42 K/uL (1.4-6.5); Neutrophils % (auto) 52.7 %; Platelet Count 151 K/uL (130-400); RDW Coefficient of Variation 19.6 % (11.5-14.5); RDW Standard Deviation 64.6 fL (36.4-46.3); White Blood Count 8.41 K/uL (4.8-10.8)
[2018-09-12] MEDS: INSULIN ASPART 100 UNITS/ML 3 ML PEN SC SCH ×4 (06:30→23:12)
[2018-09-12 06:32] LABS: Partial Thromboplastin Ratio 2.5
[2018-09-12 06:51] LABS: Albumin Globulin Ratio 0.8 (0.9-2); Albumin Level 2.8 gm/dl (3.4-5.0); Bilirubin,Total 0.3 mg/dl (0.2-1); Calcium 8.3 mg/dl (8.5-10.1); Est GFR (Non-African American) 64.7; Globulin 3.7 gm/dl (2.5-4.0); Magnesium 2.2 mg/dl (1.8-2.4); Phosphorus 2.7 mg/dl (2.5-4.9); Potassium 3.3 mmol/L (3.5-5.1); Total Protein 6.5 gm/dl (6.4-8.2); Troponin I 1.33 ng/ml (0-0.045)
[2018-09-12 06:57] LABS: Partial Thromboplastin Time 69.1 Seconds (21.0-31.0)
[2018-09-12] MEDS: LORazepam 0.5 MG/1 ML VIAL IV PRN (07:04)
[2018-09-12] MEDS: FUROSEMIDE 40 MG in SYRINGE 0 ML IV SCH (08:56)
--- NOTE | 2018-09-12 09:50 | Hospitalist Progress Note ---
Date of Service September 12, 2018 Assessment & Plan (1) Abdominal pain: Rule out cholecystitis, gastritis, peptic ulcer disease CT abdomen and pelvis: Significant for Patchy groundglass opacities are seen throughout both lungs. This likely represents a component of interstitial edema. Correlate clinically for evidence of a superimposed infectious/inflammatory pneumonitis. The gallbladder is distended and there are calcified gallstones. The gallbladder wall is thickened and edematous, and there is mild pericholecystic stranding. Although this could be related to volume overload, the appearance is concerning for acute cholecystitis. Correlation with clinical findings and liver function studies will be required. Consider ultrasound for further assessment. The bladder is distended and there is circumferential bladder wall thickening. Correlate clinically and with urinalysis. Additional findings as noted in the full report. LFTs within normal limits Has been on Zosyn and minimal amount of IV fluid Continue IV Protonix General surgery consulted-appreciate input and recommendation HIDA scan done but not been reported yet If surgery and/or any intervention required that has to be done following discussion with the advertising executive and family members Non-ST elevation [place] Evidenced by increasing troponin Echo showed large sized apical, inferior, posterior and lateral wall motion abnormality with hypokinesis to akinesis of the segments LV systolic function is reduced with EF of 30 to 35% Appreciate cardiology input and recommendation Acute CHF exacerbation, history of ischemic cardiomyopathy, status post pacemaker placement ICD placement Patient usually takes Lasix [address] chest confirms bilateral pleural effusions Lasix 40 mg IV ordered Continue to monitor diuresis and titrate Lasix accordingly Cardiology service consulted-appreciate input and recommendation Hypoxia, likely secondary to CHF exacerbation, possible pneumonia Treatment of CHF as per #2 Patient will be on Zosyn IV Wean off oxygen accordingly Hyperglycemia, diabetes type 2 Patient takes aspart and Lantus Missed recent admissions 300s, no anion gap Pharmacy glycemic control consulted Rule out UTI Urinalysis suggestive of possible UTI Currently on Zosyn for possible cholecystitis Urine culture and blood culture ordered-pending Hypertension Continue usual carvedilol and losartan Dementia As per senior staff specialized employment in [facility] [employer] [facility] [employer], the patient is usually confused, restless, yelling Continue usual Seroquel Confusion likely exacerbated by underlying infection and CHF exacerbation Ativan as needed IV ordered Haldol being avoided secondary to prolonged QT of 549 Acute confusion secondary to illness or could be progression of dementia DVT prophylaxis Heparin CODE STATUS DNR as per staff of [facility] Disposition Pending Anticipate discharge to [facility] medically stable Review of Systems Review of Systems: All systems reviewed and are unremarkable except as noted below Constitutional: + malaise and + weakness Gastrointestinal: + bloating and + nausea Neurologic: + generalized weakness Alert and awake. Pleasantly confused Physical Exam Constitutional: + ill appearing Eyes: PERRL, conjunctivae normal, anicteric sclerae ENMT: external ear and nose normal, oropharynx normal Neck: trachea midline, no thyromegaly Respiratory: + respiratory distress (Minimal distress at rest) Auscultation: + diminished lung sounds and + crackles (Minimally at the bases) Cardiovascular: Rate/Rhythm: regular rate and regular rhythm Gastrointestinal (Abdomen): Inspection/Auscultation: abdomen normal to inspection Percussion/Palpation: abdomen soft; abdomen nontender Neurologic: moves all extremities Lymphatic: no cervical or axillary lymphadenopathy Results & Data Vital Signs (Past 12 Hours) Vital Signs Temp Pulse Pulse Pulse Resp BP Pulse Ox 09/12/18 04:14 36.7 C 83 27 H 152/72 H 98 09/11/18 23:50 37.4 C 83 18 117/67 94 09/11/18 23:45 81
[2018-09-12] MEDS: PANTOprazole 40 MG in SYRINGE 0 ML IV SCH (10:51)
[2018-09-12] MEDS: QUETIAPINE FUMARATE 25 MG TABLET PO SCH ×3 (10:52→20:04)
[2018-09-12] MEDS: LINEZOLID 600 MG TAB PO SCH ×3 (10:52→20:04)
[2018-09-12] MEDS: POTASSIUM CHLORIDE 20 MEQ TABCR PO STA ×2 (10:53→11:15)
[2018-09-12] MEDS: NYSTATIN POWDER 15GM BTL EXT SCH ×3 (10:53→20:04)
[2018-09-12] MEDS: CARVEDILOL 12.5 MG TAB PO SCH ×3 (10:53→20:05)
[2018-09-12] MEDS: ASPIRIN 81 MG ECTAB PO SCH ×2 (10:53→11:15)
[2018-09-12] MEDS: POTASSIUM CHLORIDE / WTR 10 MEQ/100 ML PLCT IV SCH ×2 (10:54→12:02)
[2018-09-12] MEDS: FLUTICASONE PROPIONATE NA SPR 16 GM BTL SCH (10:54)
[2018-09-12] MEDS: Heparin Adult LOW DOSE Wt-Based Dextrose 5% 25,000 units/500 mL IV SCH (11:16)
--- NOTE | 2018-09-12 11:21 | Cardiology Progress Note ---
Date of Service September 12, 2018 Assessment & Plan (1) Non-ST elevation VT (NSTEMI): (2) CHF (congestive heart failure): (3) Dementia: Patient's troponin had peaked at 2.6 and is down to 1.33 today. EKG is nondiagnostic for ischemia due to the chronically paced ventricular QRS complexes. Telemetry reveals stable sinus rhythm with atrial sensing in the 70 bpm range and paced QRS complexes. I do not think the corrected QT interval of just over 500 is diagnostic in this patient because the wide QRS complex paced rhythm needs to be taken into account. Potassium was low today, refusing oral replacement as well as her other oral medications this morning. Receiving IV potassium. In order to simplify her regimen, I have discontinued her IV heparin. Prior to her agitation outburst today, she was not complaining of angina. Her HIDA scan was reassuring and not suggestive of acute cholecystitis. Transition to subcutaneous Lovenox, DVT prophylaxis dose. Cardiac medications to be administered as patient tolerates. Subjective Chief complaint: Follow-up left ventricular systolic dysfunction, volume overload Subjective: Patient agitated and combative during my assessment. She has been refusing oral medications. Her potassium was 3.3 mmol/L this morning, and she would not take potassium chloride. IV potassium supplement is currently infusing. At the time of my assessment, she is very agitated while receiving routine vital signs. Review of Systems Review of Systems: Review of systems is unobtainable due to the patient's mental status Physical Exam Physical Exam: General: Agitated Cardiovascular regular rhythm, no murmurs, no edema Results & Data Vital Signs (Past 12 Hours) Vital Signs Temp Pulse Pulse Pulse Resp BP Pulse Ox 09/12/18 11:12 81 30 H 09/12/18 04:14 36.7 C 83 27 H 152/72 H 98 09/11/18 23:50 37.4 C 83 18 117/67 94 09/11/18 23:45 81 Laboratory Results Cardiac Enzymes 09/11/18 09/12/18 Range/Units 06:50 05:37 AST 19 15 (15-37) U/L Troponin I 1.330 H* (0-0.045) ng/ml Coagulation 09/11/18 09/12/18 Range/Units 17:07 05:37 APTT 49.3 H* 69.1 H* (21.0-31.0) Seconds CBC 09/12/18 Range/Units 05:37 WBC 8.41 (4.8-10.8) K/uL RBC 2.90 L (4.2-5.4) M/uL Hgb 8.6 L (12.0-16.0) g/dL Hct 26.6 L (37-47) % Plt Count 151 (130-400) K/uL Neut # (Auto) 4.42 (1.4-6.5) K/uL Lymph # (Auto) 2.39 (1.2-3.4) K/uL [place] # (Auto) 1.34 H (0.11-0.59) K/uL Eos # (Auto) 0.22 (0-0.5) K/uL Baso # (Auto) 0.02 (0-0.2) K/uL Comprehensive Metabolic Panel 09/11/18 09/12/18 Range/Units 06:50 05:37 Sodium 141 (136-145) mmol/L Potassium 3.3 L D (3.5-5.1) mmol/L Chloride 106 (98-107) mmol/L Carbon Dioxide 31 (21-32) mmol/L BUN 23 H (7-18) mg/dl Creatinine 0.87 (0.6-1.2) mg/dl Glucose 116 H (70-99) mg/dl Calcium 8.3 L (8.5-10.1) mg/dl Direct Bilirubin 0.1 (0-0.2) mg/dl AST 19 15 (15-37) U/L ALT 22 20 (12-78) U/L Alkaline Phosphatase 56 55 (45-117) U/L Total Protein 6.8 6.5 (6.4-8.2) gm/dl Albumin 3.0 L 2.8 L (3.4-5.0) gm/dl Intake and Output 09/11/18 09/12/18 09/12/18 22:59 06:59 14:59 Intake Total 299.167 / 855.066 265.333 / 855.066 210.133 / 210.133 Output Total 750 / 1850 200 / 1850 Balance -450.833 / -994.934 65.333 / -994.934 210.133 / 210.133 Intake: IV 299.167 / 855.066 265.333 / 855.066 210.133 / 210.133 OFIRMEV 1,000 mg In 100 ml @ 100 / 300 100 / 300 400 mls/hr IV Q8H [facility] Rx#: [id number] HEPARIN SODIUM/DEXTROSE 25,000 99.167 / 255.066 65.333 / 255.066 110.133 / 110.133 units In 500 ml @ 700 UNITS/HR 14 mls/hr IV .Q24H [facility] Rx#: [id number] FLAGYL 500 mg In 100 ml @ 100 100 / 300 100 / 300 100 / 100 mls/hr IV Q8 [facility] Rx#:[id number] Output: Urine Amount (Catheter) 750 / 1850 200 / 1850 Nam/Indwelling 750 / 1850 200 / 1850 Other: Other Intake Source NPO npo Weight 68.1 kg Medications Administered Current Inpatient Medications Aspirin (Ecotrin Ectab) 81 mg PO QAM [facility] Stop: 10/11/18 09:44 Last Admin: 09/12/18 11:15 Dose: Not Given Documented by: Carvedilol (Coreg) 12.5 mg PO BID [facility] Stop: 10/11/18 09:44 Last Admin: 09/12/18 11:15 Dose: Not Given Documented by: Dextrose (Dextrose 50%) 25 - 50 ml IV UD PRN; Protocol PRN Reason: Hypoglycemia Protocol Stop: 10/10/18 19:59 Fluticasone Propionate (Flonase) 2 sprays NA DAILY [facility] Stop: 10/11/18 08:59 Last Admin: 09/12/18 10:54 Dose: 2 sprays Documented by: Glucagon (Glucagen) 1 mg SQ UD PRN; Protocol PRN Reason: Hypoglycemia Protocol Stop: 10/10/18 19:59 Glucose (Glucose 40%) 15 - 30 gm PO UD PRN; Protocol PRN Reason: Hypoglycemia Protocol Stop: 10/10/18 19:59 Glucose (Dex4 Glucose) 4 - 8 tabs PO UD PRN; Protocol PRN Reason: Hypoglycemia Protocol Stop: 10/10/18 19:59 Acetaminophen (Ofirmev) 1,000 mg in 100 mls @ 400 mls/hr IV Q8H [facility] Stop: 10/10/18 19:59 Last Infusion: 09/12/18 04:25 Dose: Infused Documented by: Furosemide 40 mg/ Syringe 4 mls @ 4 mls/min IV DAILY [facility] Stop: 10/11/18 08:59 Last Admin: 09/12/18 08:56 Dose: 4 mls/min Documented by: Pantoprazole Sodium 40 mg/ (Syringe) 10 mls @ 5 mls/min IV DAILY@1100 [facility] Stop: 09/14/18 11:01 Last Admin: 09/12/18 10:51 Dose: 5 mls/min Documented by: Metronidazole (Flagyl) 500 mg in 100 mls @ 100 mls/hr IV Q8 [facility] Stop: 09/20/18 21:59 Last Infusion: 09/12/18 08:54 Dose: Infused Documented by: Cefepime HCl 1,000 mg/ Syringe 11.3 mls @ 5.5 mls/min IV Q24H [facility] Stop: 09/20/18 04:01 Last Admin: 09/12/18 04:11 Dose: 5.5 mls/min Documented by: Lorazepam (Ativan) 0.5 mg in 1 mls @ 1 mls/min IV Q6H PRN PRN Reason: Anxiety/Agitation Stop: 10/12/18 06:36 Last Admin: 09/12/18 07:04 Dose: 1 mls/min Documented by: Potassium Chloride (K Noel / Wtr) 10 meq in 100 mls @ 100 mls/hr IV Q1H [facility] Stop: 09/12/18 11:59 Last Admin: 09/12/18 10:54 Dose: 100 mls/hr Documented by: Insulin Aspart (Novolog Flexpen) 0 units SC Q6 [facility] Stop: 10/11/18 00:00 Last Admin: 09/12/18 06:30 Dose: Not Given Documented by: Insulin Detemir (Levemir Flextouch) 0 units SC HS [facility]; Protocol Stop: 10/11/18 20:59 Last Admin: 09/11/18 22:31 Dose: 10 units Documented by: Ioversol (Optiray 320 125ml) 120 ml IV ONCE PRN PRN Reason: Interaction Checking Stop: 09/14/18 14:32 Last Admin: 09/10/18 14:34 Dose: 120 ml Documented by: Linezolid (Zyvox) 600 mg PO BID [facility] Stop: 09/20/18 20:59 Last Admin: 09/12/18 11:15 Dose: Not Given Documented by: Lorazepam (Ativan) 0.5 mg PO TID PRN PRN Reason: Anxiety Stop: 10/10/18 18:25 Miscellaneous (Order Awaiting Action) 1 ea N/A QS [facility] Stop: 10/11/18 00:00 Last Admin: 09/12/18 08:54 Dose: Not Given Documented by: Miscellaneous (Order Awaiting Action) 1 ea N/A QS [facility] Stop: 10/11/18 00:00 Last Admin: 09/12/18 08:54 Dose: Not Given Documented by: Miscellaneous (Carbohydrates For Hypoglycemia) 15 - 30 gm PO UD PRN PRN Reason: Hypoglycemia Treatment Stop: 10/10/18 19:59 Miscellaneous Information (Consult Glycemic Management Pharmacy) 1 ea N/A UD PRN PRN Reason: Consult Stop: 10/10/18 19:23 Miscellaneous Information (Cefepime Consult Active) 1 ea N/A UD PRN PRN Reason: Consult Stop: 10/11/18 14:36 Nystatin (Mycostatin) 1 appln EXT TID [facility] Stop: 10/10/18 20:59 Last Admin: 09/12/18 10:53 Dose: 1 appln Documented by: Quetiapine Fumarate (Seroquel) 50 mg PO QAM [facility] Stop: 10/11/18 08:59 Last Admin: 09/12/18 11:15 Dose: Not Given Documented by: Quetiapine Fumarate (Seroquel) 75 mg PO HS [facility] Stop: 10/10/18 20:59 Last Admin: 09/11/18 20:52 Dose: Not Given Documented by: Simvastatin (Zocor) 20 mg PO PM [facility] Stop: 10/12/18 20:59 Tolterodine Tartrate (Detrol) 1 mg PO HS [facility] Stop: 10/10/18 20:59 Last Admin: 09/11/18 20:51 Dose: Not Given Documented by: (1) CHF (congestive heart failure) Heart failure chronicity: unspecified Heart failure type: unspecified Qualified Code(s): I50.9 - Heart failure, unspecified
[2018-09-12] MEDS ORDERED: HALOPERIDOL 1 MG TAB PO PRN (11:42)
[2018-09-12 13:35] LABS: Partial Thromboplastin Ratio 1.5
--- NOTE | 2018-09-12 14:11 | Surgery Progress Note ---
Date of Service September 12, 2018 Assessment & Plan (1) Cholelithiasis: Ms. Liu is a 77 yo female with multiple comorbidities, admitted with acute CHF exacerbation, hypoxia,and elevated troponins concerning for NSTEMI. CT scan and U/S show cholelithiasis, mild gallbladder wall thickening, and mild pericholecystitic fluid, which normally would be concerning for acute cholecystitis, however, it could be secondary to her CHF. Also, LFTs and WBC are within normal limits. HIDA scan on 09/11/18 showed no evidence of acute or chronic cholecystitis. T. bili, lfts wnl. Plan: No evidence of acute or chronic cholecystitis on HIDA scan. She has no leukocytosis or fever suggestive of infectious source. US and CT scan findings likely secondary to her CHF. She does not complain of any abdominal pain (history is limited given Dementia). No surgical indication for cholecystectomy at this time especially given her comorbidities, dementia, and NSTEMI. Our services signing off, please call with questions or concerns Dr. Howe has seen and examined pt, agrees with above. Please see addendum for further recommendations/plan. Supervising Physician Co-Signing Physician Notes I have seen and evaluated the patient and reviewed the medical record. I agree with the documentation as provided in this note by Yamila Guo PA-C. Subjective unable to obtain ROS given dementia patient comfortably sleeping upon entering room Denies of abdominal pain when asked No nausea or vomiting Physical Exam Constitutional: WD/WN, vitals as above no acute distress and not ill appearing Respiratory: normal respiratory effort; no respiratory distress, no labored breathing, no retractions and does not use accessory muscles Gastrointestinal (Abdomen): Inspection/Auscultation: abdomen normal to inspection; abdomen not distended Percussion/Palpation: abdomen soft; abdomen nontender, no guarding and abdomen not rigid Skin: no rashes, warm and dry Results & Data Vital Signs (Past 12 Hours) Vital Signs Temp Pulse Pulse Resp BP Pulse Ox 09/12/18 11:12 81 30 H 09/12/18 04:14 36.7 C 83 27 H 152/72 H 98 Laboratory Results 09/12/18 09/12/18 09/12/18 Range/Units 13:09 06:06 05:37 WBC 8.41 (4.8-10.8) K/uL RBC 2.90 L (4.2-5.4) M/uL Hgb 8.6 L (12.0-16.0) g/dL Hct 26.6 L (37-47) % MCV 91.7 (80-100) fL MCH 29.7 (25-34) pg MCHC 32.3 (32-36) g/dL RDW Std Deviation 64.6 H (36.4-46.3) fL RDW Coeff of Fercho 19.6 H (11.5-14.5) % Plt Count 151 (130-400) K/uL MPV 9.6 (7.4-10.4) fL Immature Gran % (Auto) 0.2 % Neut % (Auto) 52.7 % Lymph % (Auto) 28.4 % [place] % (Auto) 15.9 % Eos % (Auto) 2.6 % Baso % (Auto) 0.2 % Immature Gran # (Auto) 0.02 (0.00-0.02) K/uL Neut # (Auto) 4.42 (1.4-6.5) K/uL Lymph # (Auto) 2.39 (1.2-3.4) K/uL [place] # (Auto) 1.34 H (0.11-0.59) K/uL Eos # (Auto) 0.22 (0-0.5) K/uL Baso # (Auto) 0.02 (0-0.2) K/uL APTT 40.0 H (21.0-31.0) Seconds PTT Ratio 1.5 Sodium (136-145) mmol/L Potassium (3.5-5.1) mmol/L Chloride (98-107) mmol/L Carbon Dioxide (21-32) mmol/L Anion Gap (3-11) BUN (7-18) mg/dl Creatinine (0.6-1.2) mg/dl Est Cr Clr Drug Dosing ml/min Est GFR ( Amer) Est GFR (Non-Af Amer) BUN/Creatinine Ratio (10-20) Glucose (70-99) mg/dl POC Glucose 126 H (70-99) Calcium (8.5-10.1) mg/dl Phosphorus (2.5-4.9) mg/dl Magnesium (1.8-2.4) mg/dl Total Bilirubin (0.2-1) mg/dl AST (15-37) U/L ALT (12-78) U/L Alkaline Phosphatase (45-117) U/L Troponin I (0-0.045) ng/ml Total Protein (6.4-8.2) gm/dl Albumin (3.4-5.0) gm/dl Globulin (2.5-4.0) gm/dl Albumin/Globulin Ratio (0.9-2) 09/12/18 09/12/18 09/11/18 Range/Units 05:37 05:37 23:58 WBC (4.8-10.8) K/uL RBC (4.2-5.4) M/uL Hgb (12.0-16.0) g/dL Hct (37-47) % MCV (80-100) fL MCH (25-34) pg MCHC (32-36) g/dL RDW Std Deviation (36.4-46.3) fL RDW Coeff of Fercho (11.5-14.5) % Plt Count (130-400) K/uL MPV (7.4-10.4) fL Immature Gran % (Auto) % Neut % (Auto) % Lymph % (Auto) % [place] % (Auto) % Eos % (Auto) % Baso % (Auto) % Immature Gran # (Auto) (0.00-0.02) K/uL Neut # (Auto) (1.4-6.5) K/uL Lymph # (Auto) (1.2-3.4) K/uL [place] # (Auto) (0.11-0.59) K/uL Eos # (Auto) (0-0.5) K/uL Baso # (Auto) (0-0.2) K/uL APTT 69.1 H* (21.0-31.0) Seconds PTT Ratio 2.5 Sodium 141 (136-145) mmol/L Potassium 3.3 L D (3.5-5.1) mmol/L Chloride 106 (98-107) mmol/L Carbon Dioxide 31 (21-32) mmol/L Anion Gap 4.0 (3-11) BUN 23 H (7-18) mg/dl Creatinine 0.87 (0.6-1.2) mg/dl Est Cr Clr Drug Dosing 45.0 ml/min Est GFR ( Amer) 75.0 Est GFR (Non-Af Amer) 64.7 BUN/Creatinine Ratio 26.0 H (10-20) Glucose 116 H (70-99) mg/dl POC Glucose 139 H (70-99) Calcium 8.3 L (8.5-10.1) mg/dl Phosphorus 2.7 (2.5-4.9) mg/dl Magnesium 2.2 (1.8-2.4) mg/dl Total Bilirubin 0.3 (0.2-1) mg/dl AST 15 (15-37) U/L ALT 20 (12-78) U/L Alkaline Phosphatase 55 (45-117) U/L Troponin I 1.330 H* (0-0.045) ng/ml Total Protein 6.5 (6.4-8.2) gm/dl Albumin 2.8 L (3.4-5.0) gm/dl Globulin 3.7 (2.5-4.0) gm/dl Albumin/Globulin Ratio 0.8 L (0.9-2) 09/11/18 09/11/18 09/11/18 Range/Units 20:20 17:07 16:32 WBC (4.8-10.8) K/uL RBC (4.2-5.4) M/uL Hgb (12.0-16.0) g/dL Hct (37-47) % MCV (80-100) fL MCH (25-34) pg MCHC (32-36) g/dL RDW Std Deviation (36.4-46.3) fL RDW Coeff of Fercho (11.5-14.5) % Plt Count (130-400) K/uL MPV (7.4-10.4) fL Immature Gran % (Auto) % Neut % (Auto) % Lymph % (Auto) % [place] % (Auto) % Eos % (Auto) % Baso % (Auto) % Immature Gran # (Auto) (0.00-0.02) K/uL Neut # (Auto) (1.4-6.5) K/uL Lymph # (Auto) (1.2-3.4) K/uL [place] # (Auto) (0.11-0.59) K/uL Eos # (Auto) (0-0.5) K/uL Baso # (Auto) (0-0.2) K/uL APTT 49.3 H* (21.0-31.0) Seconds PTT Ratio 1.8 Sodium (136-145) mmol/L Potassium (3.5-5.1) mmol/L Chloride (98-107) mmol/L Carbon Dioxide (21-32) mmol/L Anion Gap (3-11) BUN (7-18) mg/dl Creatinine (0.6-1.2) mg/dl Est Cr Clr Drug Dosing ml/min Est GFR ( Amer) Est GFR (Non-Af Amer) BUN/Creatinine Ratio (10-20) Glucose (70-99) mg/dl POC Glucose 157 H 165 H (70-99) Calcium (8.5-10.1) mg/dl Phosphorus (2.5-4.9) mg/dl Magnesium (1.8-2.4) mg/dl Total Bilirubin (0.2-1) mg/dl AST (15-37) U/L ALT (12-78) U/L Alkaline Phosphatase (45-117) U/L Troponin I (0-0.045) ng/ml Total Protein (6.4-8.2) gm/dl Albumin (3.4-5.0) gm/dl Globulin (2.5-4.0) gm/dl Albumin/Globulin Ratio (0.9-2) Diagnostic Findings NUCLEAR MEDICINE HEPATOBILIARY SCAN WITH GALLBLADDER EJECTION FRACTION CLINICAL HISTORY: Abdominal pain. Evaluate for acute cholecystitis. COMPARISON: CT of the abdomen and pelvis September 10, 2018. Right upper quadrant ultrasound September 11, 2018. TECHNIQUE: 5.5 mCi of technetium 99m Choletec IV was injected at 1:30 PM on September 11, 2018. Immediately following injection, imaging of the abdomen was carried out for 60 minutes in the anterior projection. At this time, 1.4 mcg of Sincalide was injected IV as per protocol. Imaging was performed for an additional 45 minutes to estimate a gallbladder ejection fraction. FINDINGS: Hepatic uptake of radiotracer is prompt and homogeneous. Activity is identified within the gallbladder at 20 minutes. Common bile duct activity is noted at 10 minutes. Small bowel activity is noted at 15 minutes. Gallbladder ejection fraction was estimated at 51%. Normal is greater than 30-35%. IMPRESSION: 1. No evidence for acute or chronic cholecystitis. 2. Normal gallbladder ejection fraction of 51%.
--- NOTE | 2018-09-12 14:52 | Hospitalist Progress Note ---
Date of Service September 12, 2018 Assessment & Plan (1) Abdominal pain: Rule out cholecystitis, gastritis, peptic ulcer disease CT abdomen and pelvis: Significant for Patchy groundglass opacities are seen throughout both lungs. This likely represents a component of interstitial edema. Correlate clinically for evidence of a superimposed infectious/inflammatory pneumonitis. The gallbladder is distended and there are calcified gallstones. The gallbladder wall is thickened and edematous, and there is mild pericholecystic stranding. Although this could be related to volume overload, the appearance is concerning for acute cholecystitis. Correlation with clinical findings and liver function studies will be required. Consider ultrasound for further assessment. The bladder is distended and there is circumferential bladder wall thickening. Correlate clinically and with urinalysis. Additional findings as noted in the full report. LFTs within normal limits Has been on Zosyn and minimal amount of IV fluid Continue IV Protonix General surgery consulted-appreciate input and recommendation HIDA scan : Negative for any acute cholecystitis We will discontinue IV antibiotics as no evidence of fever and white count has been normalized and culture negative Non-ST elevation WV Evidenced by increasing troponin Echo showed large sized apical, inferior, posterior and lateral wall motion abnormality with hypokinesis to akinesis of the segments LV systolic function is reduced with EF of 30 to 35% Appreciate cardiology input and recommendation Heparin has been discontinued the patient is not for anticoagulation Will continue with preventive therapy for DVT Acute CHF exacerbation, history of ischemic cardiomyopathy, status post pacemaker placement ICD placement Patient usually takes Lasix [address] chest confirms bilateral pleural effusions Lasix 40 mg IV ordered Continue to monitor diuresis and titrate Lasix accordingly Cardiology service consulted-appreciate input and recommendation Hypoxia, likely secondary to CHF exacerbation, possible pneumonia Treatment of CHF as per #2 Was not on home oxygen Wean off oxygen accordingly Hyperglycemia, diabetes type 2 Patient takes aspart and Lantus Missed recent admissions 300s, no anion gap Pharmacy glycemic control consulted Rule out UTI Urinalysis suggestive of possible UTI Currently on Zosyn for possible cholecystitis Urine culture less than 10,000 colonies-likely negative Blood culture has been negative We will discontinue antibiotic Hypertension Continue usual carvedilol and losartan Dementia As per staffing rn in [facility], the patient is usually confused, restless, yelling Continue usual Seroquel Confusion likely exacerbated by underlying infection and CHF exacerbation Ativan as needed IV ordered Haldol being avoided secondary to prolonged QT of 549 Acute confusion secondary to illness or could be progression of dementia Has been on Ativan as an outpatient as needed for anxiety and will continue with Haldol as needed added for further management of anxiety in the hospital DVT prophylaxis Heparin subcu CODE STATUS DNR as per staff of [facility] Disposition Pending Anticip[place] discharge [place] [facility] [place] [facility] medically stable Discussed with daughter We will transfer the patient to [facility] and ask for PT and OT evaluation Likely discharge in a day or 2 Subjective 09/11 The patient was seen and examined in telemetry unit 77-year-old female with history of ischemic cardiomyopathy, status post pacemaker and ICD placement, diabetes, hypertension, PVD, GERD, dementia, Resident of [facility], presenting with abdominal pain and elevated blood glucose. She is same pleasantly confused but denies any acute symptoms She complains of some upper abdominal discomfort on further questioning Denies any chest pain and/or palpitation 09/12 Patient was seen and examined in telemetry unit She has been having occasional agitation and aggressiveness which required intravenous Ativan She remains drowsy from Ativan use but denies any acute symptoms Review of Systems Review of Systems: All systems reviewed and unremarkable except as noted below Constitutional: + malaise and + weakness Neurologic: + behavioral changes Occasional outburst of anxiety and aggressiveness Psychiatric: + behavioral changes, + irritability, + anxiety and + confusion Physical Exam Physical Exam: Remains drowsy since this morning but no acute distress Constitutional: + ill appearing; no acute distress Eyes: PERRL, conjunctivae normal, anicteric sclerae ENMT: external ear and nose normal, oropharynx normal Neck: trachea midline, no thyromegaly normal visual inspection Respiratory: normal respiratory effort and + labored breathing Auscultation: + diminished lung sounds and + crackles (Minimally at the bases) Cardiovascular: Rate/Rhythm: regular rate and regular rhythm Gastrointestinal (Abdomen): Inspection/Auscultation: abdomen normal to inspection; abdomen not distended Percussion/Palpation: abdomen soft; abdomen nontender, no guarding and abdomen not rigid Skin: no rashes, warm and dry no jaundice Neurologic: moves all extremities (But generally weak and lethargy) Lymphatic: no cervical or axillary lymphadenopathy Results & Data Vital Signs (Past 12 Hours) Vital Signs Temp Pulse Pulse Resp BP Pulse Ox 09/12/18 11:12 81 30 H 09/12/18 04:14 36.7 C 83 27 H 152/72 H 98 Laboratory Results Short CBC 09/12/18 Range/Units 05:37 WBC 8.41 (4.8-10.8) K/uL Hgb 8.6 L (12.0-16.0) g/dL Hct 26.6 L (37-47) % Plt Count 151 (130-400) K/uL BMP 09/12/18 05:37 Sodium 141 Potassium 3.3 L D Chloride 106 Carbon Dioxide 31 BUN 23 H Creatinine 0.87 Glucose 116 H Calcium 8.3 L Cardiac Enzymes 09/12/18 Range/Units 05:37 Troponin I 1.330 H* (0-0.045) ng/ml Liver Function 09/12/18 Range/Units 05:37 Total Bilirubin 0.3 (0.2-1) mg/dl AST 15 (15-37) U/L ALT 20 (12-78) U/L Alkaline Phosphatase 55 (45-117) U/L Albumin 2.8 L (3.4-5.0) gm/dl Medications Administered Current Inpatient Medications Aspirin (Ecotrin Ectab) 81 mg PO QAM [facility] Stop: 10/11/18 09:44 Last Admin: 09/12/18 11:15 Dose: Not Given Documented by: Carvedilol (Coreg) 12.5 mg PO BID [facility] Stop: 10/11/18 09:44 Last Admin: 09/12/18 11:15 Dose: Not Given Documented by: Dextrose (Dextrose 50%) 25 - 50 ml IV UD PRN; Protocol PRN Reason: Hypoglycemia Protocol Stop: 10/10/18 19:59 Enoxaparin Sodium (Lovenox) 40 mg SQ QAM [facility] Stop: 10/13/18 08:59 Fluticasone Propionate (Flonase) 2 sprays NA DAILY [facility] Stop: 10/11/18 08:59 Last Admin: 09/12/18 10:54 Dose: 2 sprays Documented by: Glucagon (Glucagen) 1 mg SQ UD PRN; Protocol PRN Reason: Hypoglycemia Protocol Stop: 10/10/18 19:59 Glucose (Glucose 40%) 15 - 30 gm PO UD PRN; Protocol PRN Reason: Hypoglycemia Protocol Stop: 10/10/18 19:59 Glucose (Dex4 Glucose) 4 - 8 tabs PO UD PRN; Protocol PRN Reason: Hypoglycemia Protocol Stop: 10/10/18 19:59 Haloperidol (Haldol) 1 mg PO Q4H PRN PRN Reason: Agitation Stop: 10/12/18 11:41 Acetaminophen (Ofirmev) 1,000 mg in 100 mls @ 400 mls/hr IV Q8H [facility] Stop: 10/10/18 19:59 Last Infusion: 09/12/18 13:20 Dose: Infused Documented by: Furosemide 40 mg/ Syringe 4 mls @ 4 mls/min IV DAILY [facility] Stop: 10/11/18 08:59 Last Admin: 09/12/18 08:56 Dose: 4 mls/min Documented by: Pantoprazole Sodium 40 mg/ (Syringe) 10 mls @ 5 mls/min IV DAILY@1100 [facility] Stop: 09/14/18 11:01 Last Admin: 09/12/18 10:51 Dose: 5 mls/min Documented by: Metronidazole (Flagyl) 500 mg in 100 mls @ 100 mls/hr IV Q8 [facility] Stop: 09/20/18 21:59 Last Infusion: 09/12/18 14:37 Dose: Infused Documented by: Cefepime HCl 1,000 mg/ Syringe 11.3 mls @ 5.5 mls/min IV Q24H [facility] Stop: 09/20/18 04:01 Last Admin: 09/12/18 04:11 Dose: 5.5 mls/min Documented by: Lorazepam (Ativan) 0.5 mg in 1 mls @ 1 mls/min IV Q6H PRN PRN Reason: Anxiety/Agitation Stop: 10/12/18 06:36 Last Admin: 09/12/18 07:04 Dose: 1 mls/min Documented by: Insulin Aspart (Novolog Flexpen) 0 units SC Q6 [facility] Stop: 10/11/18 00:00 Last Admin: 09/12/18 12:53 Dose: Not Given Documented by: Insulin Detemir (Levemir Flextouch) 0 units SC HS [facility]; Protocol Stop: 10/11/18 20:59 Last Admin: 09/11/18 22:31 Dose: 10 units Documented by: Ioversol (Optiray 320 125ml) 120 ml IV ONCE PRN PRN Reason: Interaction Checking Stop: 09/14/18 14:32 Last Admin: 09/10/18 14:34 Dose: 120 ml Documented by: Linezolid (Zyvox) 600 mg PO BID [facility] Stop: 09/20/18 20:59 Last Admin: 09/12/18 11:15 Dose: Not Given Documented by: Lorazepam (Ativan) 0.5 mg PO TID PRN PRN Reason: Anxiety Stop: 10/10/18 18:25 Miscellaneous (Order Awaiting Action) 1 ea N/A QS [facility] Stop: 10/11/18 00:00 Last Admin: 09/12/18 08:54 Dose: Not Given Documented by: Miscellaneous (Order Awaiting Action) 1 ea N/A QS [facility] Stop: 10/11/18 00:00 Last Admin: 09/12/18 08:54 Dose: Not Given Documented by: Miscellaneous (Carbohydrates For Hypoglycemia) 15 - 30 gm PO UD PRN PRN Reason: Hypoglycemia Treatment Stop: 10/10/18 19:59 Miscellaneous Information (Consult Glycemic Management Pharmacy) 1 ea N/A UD PRN PRN Reason: Consult Stop: 10/10/18 19:23 Miscellaneous Information (Cefepime Consult Active) 1 ea N/A UD PRN PRN Reason: Consult Stop: 10/11/18 14:36 Nystatin (Mycostatin) 1 appln EXT TID [facility] Stop: 10/10/18 20:59 Last Admin: 09/12/18 13:20 Dose: 1 appln Documented by: Quetiapine Fumarate (Seroquel) 50 mg PO QAM [facility] Stop: 10/11/18 08:59 Last Admin: 09/12/18 11:15 Dose: Not Given Documented by: Quetiapine Fumarate (Seroquel) 75 mg PO HS [facility] Stop: 10/10/18 20:59 Last Admin: 09/11/18 20:52 Dose: Not Given Documented by: Simvastatin (Zocor) 20 mg PO PM [facility] Stop: 10/12/18 20:59 Tolterodine Tartrate (Detrol) 1 mg PO HS [facility] Stop: 10/10/18 20:59 Last Admin: 09/11/18 20:51 Dose: Not Given Documented by:
[2018-09-12] MEDS: TOLTERODINE TARTRATE 1 MG TAB PO SCH (20:03)
[2018-09-12] MEDS: INSULIN DETEMIR FLEXPEN/FLEX TOUCH 100 UNITS/ML 3ML SC SCH (20:53)
[2018-09-12] MEDS ORDERED: SIMVASTATIN 20 MG TAB PO SCH (21:00)
[2018-09-12] MEDS ORDERED: Nursing to Pharmacy Communication ONE (23:04)
[2018-09-13] MEDS ORDERED: CEFEPIME 2,000 MG in SYRINGE 7.5 ML IV SCH (04:00)
[2018-09-13] MEDS: ACETAMINOPHEN 1,000 MG/100 ML VIAL IV SCH ×3 (04:09→19:46)
[2018-09-13 06:08] LABS: Hematocrit (blood only) 27.1 % (37-47); Mean Corpuscular Hgb Conc 33.2 g/dL (32-36); Mean Corpuscular Volume 90.9 fL (80-100); Mean Platelet Volume 9.7 fL (7.4-10.4); Platelet Count 159 K/uL (130-400); RDW Coefficient of Variation 19.2 % (11.5-14.5); RDW Standard Deviation 62.4 fL (36.4-46.3); Red Blood Count 2.98 M/uL (4.2-5.4); White Blood Count 8.84 K/uL (4.8-10.8)
[2018-09-13 06:45] LABS: BUN Creatinine Ratio 26.2 (10-20); Calcium 8.1 mg/dl (8.5-10.1); Creatinine Clr Calc Pharmacy 55.5 ml/min; Est GFR (African American) 97.5; Est GFR (Non-African American) 84.2; Potassium 3.4 mmol/L (3.5-5.1)
[2018-09-13] MEDS ORDERED: POTASSIUM CHLORIDE 10 MEQ TABCR PO STA (07:46)
[2018-09-13] MEDS: INSULIN ASPART 100 UNITS/ML 3 ML PEN SC SCH ×4 (07:54→20:10)
[2018-09-13] MEDS: CARVEDILOL 12.5 MG TAB PO SCH ×2 (07:56→20:53)
[2018-09-13] MEDS: ASPIRIN 81 MG ECTAB PO SCH (07:58)
[2018-09-13] MEDS: LINEZOLID 600 MG TAB PO SCH ×2 (07:59→20:53)
[2018-09-13] MEDS: QUETIAPINE FUMARATE 25 MG TABLET PO SCH ×2 (08:00→20:53)
[2018-09-13] MEDS: FLUTICASONE PROPIONATE NA SPR 16 GM BTL SCH (08:06)
[2018-09-13] MEDS: FUROSEMIDE 40 MG in SYRINGE 0 ML IV SCH (08:07)
[2018-09-13] MEDS: ENOXAPARIN INJ 40 MG/0.4 ML SYR SQ SCH (08:07)
[2018-09-13] MEDS: NYSTATIN POWDER 15GM BTL EXT SCH ×3 (08:08→20:14)
[2018-09-13] MEDS ORDERED: INSULIN DETEMIR FLEXPEN/FLEX TOUCH 100 UNITS/ML 3ML SC SCH (09:00)
[2018-09-13] MEDS: PANTOprazole 40 MG in SYRINGE 0 ML IV SCH (11:38)
[2018-09-13] MEDS ORDERED: POTASSIUM CHLORIDE 20 MEQ TABCR PO STA (11:46)
--- NOTE | 2018-09-13 14:57 | Pharmacy Report ---
Pharmacy Glycemic Short Note 2 - Date of Service September 13, 2018 - Glycemic Short BSG Results (Last 24 hours): 09/12/18 09/12/18 09/12/18 11:56 16:11 20:19 Glucose POC Glucose 127 H 154 H 166 H 09/12/18 09/13/18 09/13/18 23:11 05:48 07:00 Glucose 155 H POC Glucose 200 H 150 H 09/13/18 12:02 Glucose POC Glucose 179 H OUTPATIENT ANTIDIABETIC REGIMEN: * Levemir 25 units HS * Novolog 9 units qam, 11 units qpm ASSESSMENT: 09/13/18: * Patient received total of 19 units insulin yesterday- 15 units of this was basal Levemir at HS. * She was started on a diet yesterday with dinner, BSG was above goal at HS. Additional Levemir 5 units was given this AM. * Fasting BSG today = 150. Lunch BSG trended upto 179 - therefore carb ratio tightened to 10 with lunch. * HS Levemir was increased and ordered based on a scale. 09/11/18: * Patient BSG down trending nicely after 15 units of levemir last evening and 5 units this morning. Will place on a sliding scale this evening with total dose not to exceed 20 units while NPO. PLAN FOR INPATIENT GLYCEMIC CONTROL: * Basal insulin: increased * Levemir 5 units this morning * Levemir HS dose based on scale: for BSG less than 100 = give 0 units for BSG 100-160 = give 15 units for BSG greater than 160 = give 20 units * Bolus insulin: tightened * NovoLog per scale ACHS or Q6hrs while NPO * Goal Range: Low 120 mg/dL - High 150 mg/dL * Correction Factor: 25 mg/dL/unit * Nutritional / Prandial insulin per carb ratio of 1 unit per 10 grams CHO consumed PLAN FOR DISCHARGE: * HbA1c = 8.7% on 09/11/18 indicates sub-optimal control of diabetes at [facility]. * Patient has been requiring less insulin while in-patient thus far compared to home insulin regimen. * Recommend continue current outpatient insulin regimen but with SMBG at every meal and HS and dose titration based on outpatient provider.
[2018-09-13] MEDS: LOSARTAN POTASSIUM 25 MG TAB PO SCH ×2 (18:08→18:19)
--- NOTE | 2018-09-13 18:39 | Hospitalist Progress Note ---
Date of Service September 13, 2018 Assessment & Plan (1) Systolic CHF, acute: Appears compensated, continue current medical management. Added Cozaar back to regimen as blood pressure is improved to normal range. (2) Abdominal pain: She appears to be doing well without abdominal pain hurts tolerating p.o. Uncertain of the accuracy of this reported symptom in the setting of severe dementia. Work-up for acute cholecystitis was negative and she is not a surgical candidate. Gallbladder swelling on initial CT scan appears to be secondary to volume overload from CHF exacerbation. (3) Non-ST elevation MO (NSTEMI): Medically managed with IV heparin, Coreg, aspirin, Zocor. Of note she has a listed intolerance to statin. Although this is on her home medication list will hold this until it is further confirmed that she can tolerate Zocor. (4) Osteomyelitis: Chronic, continue Zyvox per home regimen. (5) Diabetic foot ulcer associated with type 2 diabetes mellitus: Chronic, continue wound care (6) Dementia: Severe, end-stage. Continue good day night cycles and frequent reor ientation. As patient has aggressive outbursts and sometimes declines p.o. medications including her Seroquel, may need to depend on Ativan or consider other chemical restraint. Continue fall precautions. (7) Ambulatory dysfunction: (8) Diabetes mellitus, type 2: Blood sugar is back in range. Continue current insulin regimen. (9) Statin intolerance: Holding Zocor as above with history of statin intolerance until confirmed she can in fact tolerate this. (10) RADHA inhibitor intolerance: Continue Cozaar. (11) DVT prophylaxis: Lovenox DNR/DNI Dispo-back to [facility] dementia unit once clinically improved. Keysha Chavarria DO [facility] Hospitalist Subjective 77-year-old female with dementia reported to the ER coming from [facility] dementia unit. She was sent in because of elevated blood sugar to 320. She is a known diabetic on Levemir and NovoLog FlexPen and blood sugar is now in range. There was also reports of dry heaving from staff at [facility]. On arrival to [facility] ER she was found to be 88% on room air and was placed on nasal cannula oxygen supplementation. She was in no acute distress with mild bilateral bilateral wheezing at the lung bases and a soft nontender nondistended abdomen. No pitting edema was seen on exam. Chest x-ray revealed small pleural effusions with bibasilar consolidation as well as congestive heart failure and mild interstitial edema in the setting of an AICD. A CT angiogram of the chest in addition to a CT scan of the abdomen pelvis with IV contrast was performed in the setting of hypoxia and elevated d-dimer as well as generalized abdominal pain and no vomiting. This revealed no evidence of pulmonary embolus, presence of evidence of congestive heart failure, small to moderate pleural effusions with bibasilar atelectasis, patchy groundglass opacities throughout both lungs likely a component of interstitial edema versus superimposed infection, a distended gallbladder with calcified gallstones that appeared thickened and edematous with mild pericholecystic stranding. As this was concerning for cholecystitis general surgery was contacted for evaluation and ultimately deemed her nonsurgical candidate. The swelling of the gallbladder was thought to be related to CHF exacerbation and a HIDA scan was negative. She was admitted to the hospitalist service with a noted BNP at 11,000 and an elevated troponin. Initial diagnosis was NSTEMI with CHF exacerbation. Cardiology was consulted and started her on unfractionated heparin. An echocardiogram was performed revealing new lateral hypokinesis and an interval decline in the overall left ventricular systolic function with an EF of 30 to 35%. Based on elevation of her troponin she appeared to have a non-ST segment elevation myocardial infarction. Her EKG was nondiagnostic due to the ventricular paced rhythm. No indication for cardiac catheterization was present. She was continued on medical management which in the setting of dementia, and combativeness has been an issue. She continues to refuse medications and have aggressive outbursts. She is still very confused today and review of systems is unobtainable because of the dementia and confusion present. Review of Systems Review of Systems: Unobtainable due to mental health condition Physical Exam Physical Exam: CONSTITUTIONAL: WNWD, vitals as above, generally well- appearing, alert and confabulating EYES: normal conjuctivae, no scleral icterus ENT: MMM RESPIRATORY: crackles at bases bilaterally, no rales or wheezes, normal respiratory effort CARDIOVASCULAR: regular rate and rhythm, S1 and 2 heard without murmurs, gallop s or rubs, no JVD, no peripheral edema GASTROINTESTINAL: pt would not let me evaluate MUSCULOSKELETAL: strength 5/5 throughout, head is normocephalic and atraumatic SKIN: warm and dry, did not evaluate backside-patient would not allow this. NEUROLOGIC: disoriented, delirious, not following a conversation but speaks about random topics, cannot follow instruction. Very angry at something and agg ressive. PSYCHIATRIC: alert, uncooperative, and disoriented Results & Data Vital Signs (Past 12 Hours) Vital Signs Temp Pulse Resp BP Pulse Ox 09/13/18 16:00 147/81 H 09/13/18 15:40 36.7 C 86 20 155/108 H 96 09/13/18 10:45 36.8 C 68 20 123/68 98 09/13/18 07:01 36.6 C 72 15 146/78 H 90 Laboratory Results Short CBC 09/10/18 09/10/18 09/10/18 Range/Units 13:36 14:06 14:06 WBC (4.8-10.8) K/uL RBC 3.41 L (4.2-5.4) M/uL Hgb (12.0-16.0) g/dL POC Hgb (12.0-16.0) g/dl Hct (37-47) % POC Hct (37-47) % MCV 90.9 (80-100) fL MCH 29.3 (25-34) pg MCHC 32.3 (32-36) g/dL RDW Std Deviation 64.1 H (36.4-46.3) fL RDW Coeff of Fercho 19.5 H (11.5-14.5) % Plt Count (130-400) K/uL MPV 9.9 (7.4-10.4) fL Immature Gran % (Auto) 0.3 % Neut % (Auto) 78.8 % Lymph % (Auto) 15.7 % Smith % (Auto) 5.2 % Eos % (Auto) 0.0 % Baso % (Auto) 0.0 % Immature Gran # (Auto) 0.02 (0.00-0.02) K/uL Neut # (Auto) 5.63 (1.4-6.5) K/uL Lymph # (Auto) 1.12 L (1.2-3.4) K/uL Smith # (Auto) 0.37 (0.11-0.59) K/uL Eos # (Auto) 0.00 (0-0.5) K/uL Baso # (Auto) 0.00 (0-0.2) K/uL PT 10.6 (9.0-12.0) Seconds INR 1.0 (0.9-1.1) APTT 27.3 (21.0-31.0) Seconds PTT Ratio 1.0 D-Dimer 760 H* (0-500) ug/L FEU POC Sodium (135-144) mEq/L Sodium (136-145) mmol/L POC Potassium (3.3-5.0) mEq/L Potassium (3.5-5.1) mmol/L POC Chloride (101-112) mEq/L Chloride (98-107) mmol/L Carbon Dioxide (21-32) mmol/L POC Total CO2 (24-31) mEq/l Anion Gap (3-11) POC Anion Gap (16-25) mmol/L POC BUN (7-18) mg/dl BUN (7-18) mg/dl Creatinine (0.6-1.2) mg/dl POC Creatinine (0.6-1.3) mg/dl Est Cr Clr Drug Dosing ml/min Est GFR ( Amer) Est GFR (Non-Af Amer) BUN/Creatinine Ratio (10-20) Glucose (70-99) mg/dl POC Glucose 336 H* (70-99) POC Glucose (other) (70-99) mg/dl Estimat Average Glucose mg/dl Hemoglobin A1c (4.5-5.6) % Calcium (8.5-10.1) mg/dl POC Ioniz Calcium Naif (1.12-1.32) mmol/l Phosphorus (2.5-4.9) mg/dl Magnesium (1.8-2.4) mg/dl Total Bilirubin (0.2-1) mg/dl Direct Bilirubin (0-0.2) mg/dl AST (15-37) U/L ALT (12-78) U/L Alkaline Phosphatase (45-117) U/L Troponin I (0-0.045) ng/ml NT-Pro-B Natriuret Pep (0-1800) pg/ml Total Protein (6.4-8.2) gm/dl Albumin (3.4-5.0) gm/dl Globulin (2.5-4.0) gm/dl Albumin/Globulin Ratio (0.9-2) Beta-Hydroxybutyric Acd (0.2-2.81) mg/dl Urine Color Urine Appearance (Clear) Urine pH (4.5-7.5) Ur Specific Cassatt (1.000-1.030) Urine Protein (Negative) Urine Glucose (UA) (Negative) Urine Ketones (Negative) Urine Blood (Negative) Urine Nitrite (Negative) Urine Bilirubin (Negative) Urine Urobilinogen (Negative) Ur Leukocyte Esterase (Negative) Urine WBC (Auto) (0-5) /hpf Urine RBC (Auto) (0-4) /hpf U Hyaline Cast (Auto) (0-5) /lpf U Epithel Cells (Auto) (0-5) /lpf Urine Bacteria (Auto) (Negative) Nasal Screen MRSA (PCR) (Negative) Influenza Type A (PCR) (Neg) Influenza Type B (PCR) (Neg) 09/10/18 09/10/18 09/10/18 Range/Units 14:06 14:15 16:00 WBC (4.8-10.8) K/uL RBC (4.2-5.4) M/uL Hgb (12.0-16.0) g/dL POC Hgb 10.2 L (12.0-16.0) g/dl Hct (37-47) % POC Hct 30 L (37-47) % MCV (80-100) fL MCH (25-34) pg MCHC (32-36) g/dL RDW Std Deviation (36.4-46.3) fL RDW Coeff of Fercho (11.5-14.5) % Plt Count (130-400) K/uL MPV (7.4-10.4) fL Immature Gran % (Auto) % Neut % (Auto) % Lymph % (Auto) % Smith % (Auto) % Eos % (Auto) % Baso % (Auto) % Immature Gran # (Auto) (0.00-0.02) K/uL Neut # (Auto) (1.4-6.5) K/uL Lymph # (Auto) (1.2-3.4) K/uL Smith # (Auto) (0.11-0.59) K/uL Eos # (Auto) (0-0.5) K/uL Baso # (Auto) (0-0.2) K/uL PT (9.0-12.0) Seconds INR (0.9-1.1) APTT (21.0-31.0) Seconds PTT Ratio D-Dimer (0-500) ug/L FEU POC Sodium 140 (135-144) mEq/L Sodium 139 (136-145) mmol/L POC Potassium 4.3 (3.3-5.0) mEq/L Potassium 4.4 (3.5-5.1) mmol/L POC Chloride 103 (101-112) mEq/L Chloride 104 (98-107) mmol/L Carbon Dioxide 26 (21-32) mmol/L POC Total CO2 24 (24-31) mEq/l Anion Gap 9.0 (3-11) POC Anion Gap 18.0 (16-25) mmol/L POC BUN 22 H (7-18) mg/dl BUN 21 H (7-18) mg/dl Creatinine 1.06 (0.6-1.2) mg/dl POC Creatinine 0.8 (0.6-1.3) mg/dl Est Cr Clr Drug Dosing 39.8 ml/min Est GFR ( Amer) 59.1 Est GFR (Non-Af Amer) 51.0 BUN/Creatinine Ratio 19.8 (10-20) Glucose 330 H* (70-99) mg/dl POC Glucose (70-99) POC Glucose (other) 331 H (70-99) mg/dl Estimat Average Glucose mg/dl Hemoglobin A1c (4.5-5.6) % Calcium 8.6 (8.5-10.1) mg/dl POC Ioniz Calcium Naif 1.09 L (1.12-1.32) mmol/l Phosphorus (2.5-4.9) mg/dl Magnesium (1.8-2.4) mg/dl Total Bilirubin 0.5 (0.2-1) mg/dl Direct Bilirubin (0-0.2) mg/dl AST 23 (15-37) U/L ALT 25 (12-78) U/L Alkaline Phosphatase 74 (45-117) U/L Troponin I 1.310 H* (0-0.045) ng/ml NT-Pro-B Natriuret Pep 22752 H (0-1800) pg/ml Total Protein 7.5 (6.4-8.2) gm/dl Albumin 3.5 (3.4-5.0) gm/dl Globulin 4.0 (2.5-4.0) gm/dl Albumin/Globulin Ratio 0.9 (0.9-2) Beta-Hydroxybutyric Acd 7.27 H (0.2-2.81) mg/dl Urine Color Urine Appearance (Clear) Urine pH (4.5-7.5) Ur Specific Cassatt (1.000-1.030) Urine Protein (Negative) Urine Glucose (UA) (Negative) Urine Ketones (Negative) Urine Blood (Negative) Urine Nitrite (Negative) Urine Bilirubin (Negative) Urine Urobilinogen (Negative) Ur Leukocyte Esterase (Negative) Urine WBC (Auto) (0-5) /hpf Urine RBC (Auto) (0-4) /hpf U Hyaline Cast (Auto) (0-5) /lpf U Epithel Cells (Auto) (0-5) /lpf Urine Bacteria (Auto) (Negative) Nasal Screen MRSA (PCR) (Negative) Influenza Type A (PCR) Neg for Influ A (Neg) Influenza Type B (PCR) Neg for Influ B (Neg) 09/10/18 09/10/18 09/10/18 Range/Units 16:06 16:35 18:37 WBC (4.8-10.8) K/uL RBC (4.2-5.4) M/uL Hgb (12.0-16.0) g/dL POC Hgb (12.0-16.0) g/dl Hct (37-47) % POC Hct (37-47) % MCV (80-100) fL MCH (25-34) pg MCHC (32-36) g/dL RDW Std Deviation (36.4-46.3) fL RDW Coeff of Fercho (11.5-14.5) % Plt Count (130-400) K/uL MPV (7.4-10.4) fL Immature Gran % (Auto) % Neut % (Auto) % Lymph % (Auto) % Smith % (Auto) % Eos % (Auto) % Baso % (Auto) % Immature Gran # (Auto) (0.00-0.02) K/uL Neut # (Auto) (1.4-6.5) K/uL Lymph # (Auto) (1.2-3.4) K/uL Smith # (Auto) (0.11-0.59) K/uL Eos # (Auto) (0-0.5) K/uL Baso # (Auto) (0-0.2) K/uL PT (9.0-12.0) Seconds INR (0.9-1.1) APTT (21.0-31.0) Seconds PTT Ratio D-Dimer (0-500) ug/L FEU POC Sodium (135-144) mEq/L Sodium (136-145) mmol/L POC Potassium (3.3-5.0) mEq/L Potassium (3.5-5.1) mmol/L POC Chloride (101-112) mEq/L Chloride (98-107) mmol/L Carbon Dioxide (21-32) mmol/L POC Total CO2 (24-31) mEq/l Anion Gap (3-11) POC Anion Gap (16-25) mmol/L POC BUN (7-18) mg/dl BUN (7-18) mg/dl Creatinine (0.6-1.2) mg/dl POC Creatinine (0.6-1.3) mg/dl Est Cr Clr Drug Dosing ml/min Est GFR ( Amer) Est GFR (Non-Af Amer) BUN/Creatinine Ratio (10-20) Glucose (70-99) mg/dl POC Glucose 286 H 299 H (70-99) POC Glucose (other) (70-99) mg/dl Estimat Average Glucose mg/dl Hemoglobin A1c (4.5-5.6) % Calcium (8.5-10.1) mg/dl POC Ioniz Calcium Naif (1.12-1.32) mmol/l Phosphorus (2.5-4.9) mg/dl Magnesium (1.8-2.4) mg/dl Total Bilirubin (0.2-1) mg/dl Direct Bilirubin (0-0.2) mg/dl AST (15-37) U/L ALT (12-78) U/L Alkaline Phosphatase (45-117) U/L Troponin I (0-0.045) ng/ml NT-Pro-B Natriuret Pep (0-1800) pg/ml Total Protein (6.4-8.2) gm/dl Albumin (3.4-5.0) gm/dl Globulin (2.5-4.0) gm/dl Albumin/Globulin Ratio (0.9-2) Beta-Hydroxybutyric Acd (0.2-2.81) mg/dl Urine Color Yellow Urine Appearance Clear (Clear) Urine pH 5.0 (4.5-7.5) Ur Specific Cassatt > 1.045 H (1.000-1.030) Urine Protein Negative (Negative) Urine Glucose (UA) 2+ H (Negative) Urine Ketones 1+ H (Negative) Urine Blood Trace H (Negative) Urine Nitrite Negative (Negative) Urine Bilirubin Negative (Negative) Urine Urobilinogen Negative (Negative) Ur Leukocyte Esterase Negative (Negative) Urine WBC (Auto) 0 (0-5) /hpf Urine RBC (Auto) 0-4 (0-4) /hpf U Hyaline Cast (Auto) 1-5 (0-5) /lpf U Epithel Cells (Auto) 5-10 H (0-5) /lpf Urine Bacteria (Auto) Negative (Negative) Nasal Screen MRSA (PCR) (Negative) Influenza Type A (PCR) (Neg) Influenza Type B (PCR) (Neg) 09/10/18 09/10/18 09/10/18 Range/Units 19:20 19:50 20:15 WBC (4.8-10.8) K/uL RBC (4.2-5.4) M/uL Hgb (12.0-16.0) g/dL POC Hgb (12.0-16.0) g/dl Hct (37-47) % POC Hct (37-47) % MCV (80-100) fL MCH (25-34) pg MCHC (32-36) g/dL RDW Std Deviation (36.4-46.3) fL RDW Coeff of Fercho (11.5-14.5) % Plt Count (130-400) K/uL MPV (7.4-10.4) fL Immature Gran % (Auto) % Neut % (Auto) % Lymph % (Auto) % Smith % (Auto) % Eos % (Auto) % Baso % (Auto) % Immature Gran # (Auto) (0.00-0.02) K/uL Neut # (Auto) (1.4-6.5) K/uL Lymph # (Auto) (1.2-3.4) K/uL Smith # (Auto) (0.11-0.59) K/uL Eos # (Auto) (0-0.5) K/uL Baso # (Auto) (0-0.2) K/uL PT (9.0-12.0) Seconds INR (0.9-1.1) APTT (21.0-31.0) Seconds PTT Ratio D-Dimer (0-500) ug/L FEU POC Sodium (135-144) mEq/L Sodium (136-145) mmol/L POC Potassium (3.3-5.0) mEq/L Potassium (3.5-5.1) mmol/L POC Chloride (101-112) mEq/L Chloride (98-107) mmol/L Carbon Dioxide (21-32) mmol/L POC Total CO2 (24-31) mEq/l Anion Gap (3-11) POC Anion Gap (16-25) mmol/L POC BUN (7-18) mg/dl BUN (7-18) mg/dl Creatinine (0.6-1.2) mg/dl POC Creatinine (0.6-1.3) mg/dl Est Cr Clr Drug Dosing ml/min Est GFR ( Amer) Est GFR (Non-Af Amer) BUN/Creatinine Ratio (10-20) Glucose (70-99) mg/dl POC Glucose 309 H* (70-99) POC Glucose (other) (70-99) mg/dl Estimat Average Glucose mg/dl Hemoglobin A1c (4.5-5.6) % Calcium (8.5-10.1) mg/dl POC Ioniz Calcium Naif (1.12-1.32) mmol/l Phosphorus (2.5-4.9) mg/dl Magnesium (1.8-2.4) mg/dl Total Bilirubin (0.2-1) mg/dl Direct Bilirubin (0-0.2) mg/dl AST (15-37) U/L ALT (12-78) U/L Alkaline Phosphatase (45-117) U/L Troponin I 2.020 H* (0-0.045) ng/ml NT-Pro-B Natriuret Pep (0-1800) pg/ml Total Protein (6.4-8.2) gm/dl Albumin (3.4-5.0) gm/dl Globulin (2.5-4.0) gm/dl Albumin/Globulin Ratio (0.9-2) Beta-Hydroxybutyric Acd (0.2-2.81) mg/dl Urine Color Urine Appearance (Clear) Urine pH (4.5-7.5) Ur Specific Cassatt (1.000-1.030) Urine Protein (Negative) Urine Glucose (UA) (Negative) Urine Ketones (Negative) Urine Blood (Negative) Urine Nitrite (Negative) Urine Bilirubin (Negative) Urine Urobilinogen (Negative) Ur Leukocyte Esterase (Negative) Urine WBC (Auto) (0-5) /hpf Urine RBC (Auto) (0-4) /hpf U Hyaline Cast (Auto) (0-5) /lpf U Epithel Cells (Auto) (0-5) /lpf Urine Bacteria (Auto) (Negative) Nasal Screen MRSA (PCR) Negative (Negative) Influenza Type A (PCR) (Neg) Influenza Type B (PCR) (Neg) 09/11/18 09/11/18 09/11/18 Range/Units 00:09 01:06 01:06 WBC (4.8-10.8) K/uL RBC (4.2-5.4) M/uL Hgb (12.0-16.0) g/dL POC Hgb (12.0-16.0) g/dl Hct (37-47) % POC Hct (37-47) % MCV (80-100) fL MCH (25-34) pg MCHC (32-36) g/dL RDW Std Deviation (36.4-46.3) fL RDW Coeff of Fercho (11.5-14.5) % Plt Count (130-400) K/uL MPV (7.4-10.4) fL Immature Gran % (Auto) % Neut % (Auto) % Lymph % (Auto) % Smith % (Auto) % Eos % (Auto) % Baso % (Auto) % Immature Gran # (Auto) (0.00-0.02) K/uL Neut # (Auto) (1.4-6.5) K/uL Lymph # (Auto) (1.2-3.4) K/uL Smith # (Auto) (0.11-0.59) K/uL Eos # (Auto) (0-0.5) K/uL Baso # (Auto) (0-0.2) K/uL PT (9.0-12.0) Seconds INR (0.9-1.1) APTT (21.0-31.0) Seconds PTT Ratio D-Dimer (0-500) ug/L FEU POC Sodium (135-144) mEq/L Sodium 142 (136-145) mmol/L POC Potassium (3.3-5.0) mEq/L Potassium 4.3 (3.5-5.1) mmol/L POC Chloride (101-112) mEq/L Chloride 108 H (98-107) mmol/L Carbon Dioxide 30 (21-32) mmol/L POC Total CO2 (24-31) mEq/l Anion Gap 4.0 (3-11) POC Anion Gap (16-25) mmol/L POC BUN (7-18) mg/dl BUN 23 H (7-18) mg/dl Creatinine 1.01 (0.6-1.2) mg/dl POC Creatinine (0.6-1.3) mg/dl Est Cr Clr Drug Dosing 21.2 ml/min Est GFR ( Amer) 62.6 Est GFR (Non-Af Amer) 54.0 BUN/Creatinine Ratio 23.2 H (10-20) Glucose 221 H (70-99) mg/dl POC Glucose 235 H (70-99) POC Glucose (other) (70-99) mg/dl Estimat Average Glucose 203 mg/dl Hemoglobin A1c 8.7 H (4.5-5.6) % Calcium 8.4 L (8.5-10.1) mg/dl POC Ioniz Calcium Naif (1.12-1.32) mmol/l Phosphorus (2.5-4.9) mg/dl Magnesium (1.8-2.4) mg/dl Total Bilirubin (0.2-1) mg/dl Direct Bilirubin (0-0.2) mg/dl AST (15-37) U/L ALT (12-78) U/L Alkaline Phosphatase (45-117) U/L Troponin I 2.680 H* (0-0.045) ng/ml NT-Pro-B Natriuret Pep (0-1800) pg/ml Total Protein (6.4-8.2) gm/dl Albumin (3.4-5.0) gm/dl Globulin (2.5-4.0) gm/dl Albumin/Globulin Ratio (0.9-2) Beta-Hydroxybutyric Acd (0.2-2.81) mg/dl Urine Color Urine Appearance (Clear) Urine pH (4.5-7.5) Ur Specific Cassatt (1.000-1.030) Urine Protein (Negative) Urine Glucose (UA) (Negative) Urine Ketones (Negative) Urine Blood (Negative) Urine Nitrite (Negative) Urine Bilirubin (Negative) Urine Urobilinogen (Negative) Ur Leukocyte Esterase (Negative) Urine WBC (Auto) (0-5) /hpf Urine RBC (Auto) (0-4) /hpf U Hyaline Cast (Auto) (0-5) /lpf U Epithel Cells (Auto) (0-5) /lpf Urine Bacteria (Auto) (Negative) Nasal Screen MRSA (PCR) (Negative) Influenza Type A (PCR) (Neg) Influenza Type B (PCR) (Neg) 09/11/18 09/11/18 09/11/18 Range/Units 05:56 06:49 06:50 WBC (4.8-10.8) K/uL RBC 3.06 L (4.2-5.4) M/uL Hgb (12.0-16.0) g/dL POC Hgb (12.0-16.0) g/dl Hct (37-47) % POC Hct (37-47) % MCV 91.5 (80-100) fL MCH 30.1 (25-34) pg MCHC 32.9 (32-36) g/dL RDW Std Deviation 64.9 H (36.4-46.3) fL RDW Coeff of Fercho 19.7 H (11.5-14.5) % Plt Count (130-400) K/uL MPV 9.3 (7.4-10.4) fL Immature Gran % (Auto) % Neut % (Auto) % Lymph % (Auto) % Smith % (Auto) % Eos % (Auto) % Baso % (Auto) % Immature Gran # (Auto) (0.00-0.02) K/uL Neut # (Auto) (1.4-6.5) K/uL Lymph # (Auto) (1.2-3.4) K/uL Smith # (Auto) (0.11-0.59) K/uL Eos # (Auto) (0-0.5) K/uL Baso # (Auto) (0-0.2) K/uL PT (9.0-12.0) Seconds INR (0.9-1.1) APTT (21.0-31.0) Seconds PTT Ratio D-Dimer (0-500) ug/L FEU POC Sodium (135-144) mEq/L Sodium (136-145) mmol/L POC Potassium (3.3-5.0) mEq/L Potassium (3.5-5.1) mmol/L POC Chloride (101-112) mEq/L Chloride (98-107) mmol/L Carbon Dioxide (21-32) mmol/L POC Total CO2 (24-31) mEq/l Anion Gap (3-11) POC Anion Gap (16-25) mmol/L POC BUN (7-18) mg/dl BUN (7-18) mg/dl Creatinine (0.6-1.2) mg/dl POC Creatinine (0.6-1.3) mg/dl Est Cr Clr Drug Dosing ml/min Est GFR ( Amer) Est GFR (Non-Af Amer) BUN/Creatinine Ratio (10-20) Glucose (70-99) mg/dl POC Glucose 188 H (70-99) POC Glucose (other) (70-99) mg/dl Estimat Average Glucose mg/dl Hemoglobin A1c (4.5-5.6) % Calcium (8.5-10.1) mg/dl POC Ioniz Calcium Naif (1.12-1.32) mmol/l Phosphorus (2.5-4.9) mg/dl Magnesium (1.8-2.4) mg/dl Total Bilirubin 0.4 (0.2-1) mg/dl Direct Bilirubin 0.1 (0-0.2) mg/dl AST 19 (15-37) U/L ALT 22 (12-78) U/L Alkaline Phosphatase 56 (45-117) U/L Troponin I (0-0.045) ng/ml NT-Pro-B Natriuret Pep (0-1800) pg/ml Total Protein 6.8 (6.4-8.2) gm/dl Albumin 3.0 L (3.4-5.0) gm/dl Globulin (2.5-4.0) gm/dl Albumin/Globulin Ratio (0.9-2) Beta-Hydroxybutyric Acd (0.2-2.81) mg/dl Urine Color Urine Appearance (Clear) Urine pH (4.5-7.5) Ur Specific Cassatt (1.000-1.030) Urine Protein (Negative) Urine Glucose (UA) (Negative) Urine Ketones (Negative) Urine Blood (Negative) Urine Nitrite (Negative) Urine Bilirubin (Negative) Urine Urobilinogen (Negative) Ur Leukocyte Esterase (Negative) Urine WBC (Auto) (0-5) /hpf Urine RBC (Auto) (0-4) /hpf U Hyaline Cast (Auto) (0-5) /lpf U Epithel Cells (Auto) (0-5) /lpf Urine Bacteria (Auto) (Negative) Nasal Screen MRSA (PCR) (Negative) Influenza Type A (PCR) (Neg) Influenza Type B (PCR) (Neg) 09/11/18 09/11/18 09/11/18 Range/Units 09:26 10:44 12:21 WBC (4.8-10.8) K/uL RBC (4.2-5.4) M/uL Hgb (12.0-16.0) g/dL POC Hgb (12.0-16.0) g/dl Hct (37-47) % POC Hct (37-47) % MCV (80-100) fL MCH (25-34) pg MCHC (32-36) g/dL RDW Std Deviation (36.4-46.3) fL RDW Coeff of Fercho (11.5-14.5) % Plt Count (130-400) K/uL MPV (7.4-10.4) fL Immature Gran % (Auto) % Neut % (Auto) % Lymph % (Auto) % Smith % (Auto) % Eos % (Auto) % Baso % (Auto) % Immature Gran # (Auto) (0.00-0.02) K/uL Neut # (Auto) (1.4-6.5) K/uL Lymph # (Auto) (1.2-3.4) K/uL Smith # (Auto) (0.11-0.59) K/uL Eos # (Auto) (0-0.5) K/uL Baso # (Auto) (0-0.2) K/uL PT (9.0-12.0) Seconds INR (0.9-1.1) APTT 42.2 H (21.0-31.0) Seconds PTT Ratio 1.6 D-Dimer (0-500) ug/L FEU POC Sodium (135-144) mEq/L Sodium (136-145) mmol/L POC Potassium (3.3-5.0) mEq/L Potassium (3.5-5.1) mmol/L POC Chloride (101-112) mEq/L Chloride (98-107) mmol/L Carbon Dioxide (21-32) mmol/L POC Total CO2 (24-31) mEq/l Anion Gap (3-11) POC Anion Gap (16-25) mmol/L POC BUN (7-18) mg/dl BUN (7-18) mg/dl Creatinine (0.6-1.2) mg/dl POC Creatinine (0.6-1.3) mg/dl Est Cr Clr Drug Dosing ml/min Est GFR ( Amer) Est GFR (Non-Af Amer) BUN/Creatinine Ratio (10-20) Glucose (70-99) mg/dl POC Glucose 136 H 152 H (70-99) POC Glucose (other) (70-99) mg/dl Estimat Average Glucose mg/dl Hemoglobin A1c (4.5-5.6) % Calcium (8.5-10.1) mg/dl POC Ioniz Calcium Naif (1.12-1.32) mmol/l Phosphorus (2.5-4.9) mg/dl Magnesium (1.8-2.4) mg/dl Total Bilirubin (0.2-1) mg/dl Direct Bilirubin (0-0.2) mg/dl AST (15-37) U/L ALT (12-78) U/L Alkaline Phosphatase (45-117) U/L Troponin I (0-0.045) ng/ml NT-Pro-B Natriuret Pep (0-1800) pg/ml Total Protein (6.4-8.2) gm/dl Albumin (3.4-5.0) gm/dl Globulin (2.5-4.0) gm/dl Albumin/Globulin Ratio (0.9-2) Beta-Hydroxybutyric Acd (0.2-2.81) mg/dl Urine Color Urine Appearance (Clear) Urine pH (4.5-7.5) Ur Specific Cassatt (1.000-1.030) Urine Protein (Negative) Urine Glucose (UA) (Negative) Urine Ketones (Negative) Urine Blood (Negative) Urine Nitrite (Negative) Urine Bilirubin (Negative) Urine Urobilinogen (Negative) Ur Leukocyte Esterase (Negative) Urine WBC (Auto) (0-5) /hpf Urine RBC (Auto) (0-4) /hpf U Hyaline Cast (Auto) (0-5) /lpf U Epithel Cells (Auto) (0-5) /lpf Urine Bacteria (Auto) (Negative) Nasal Screen MRSA (PCR) (Negative) Influenza Type A (PCR) (Neg) Influenza Type B (PCR) (Neg) 09/11/18 09/11/18 09/11/18 Range/Units 16:32 17:07 20:20 WBC (4.8-10.8) K/uL RBC (4.2-5.4) M/uL Hgb (12.0-16.0) g/dL POC Hgb (12.0-16.0) g/dl Hct (37-47) % POC Hct (37-47) % MCV (80-100) fL MCH (25-34) pg MCHC (32-36) g/dL RDW Std Deviation (36.4-46.3) fL RDW Coeff of Fercho (11.5-14.5) % Plt Count (130-400) K/uL MPV (7.4-10.4) fL Immature Gran % (Auto) % Neut % (Auto) % Lymph % (Auto) % Smith % (Auto) % Eos % (Auto) % Baso % (Auto) % Immature Gran # (Auto) (0.00-0.02) K/uL Neut # (Auto) (1.4-6.5) K/uL Lymph # (Auto) (1.2-3.4) K/uL Smith # (Auto) (0.11-0.59) K/uL Eos # (Auto) (0-0.5) K/uL Baso # (Auto) (0-0.2) K/uL PT (9.0-12.0) Seconds INR (0.9-1.1) APTT 49.3 H* (21.0-31.0) Seconds PTT Ratio 1.8 D-Dimer (0-500) ug/L FEU POC Sodium (135-144) mEq/L Sodium (136-145) mmol/L POC Potassium (3.3-5.0) mEq/L Potassium (3.5-5.1) mmol/L POC Chloride (101-112) mEq/L Chloride (98-107) mmol/L Carbon Dioxide (21-32) mmol/L POC Total CO2 (24-31) mEq/l Anion Gap (3-11) POC Anion Gap (16-25) mmol/L POC BUN (7-18) mg/dl BUN (7-18) mg/dl Creatinine (0.6-1.2) mg/dl POC Creatinine (0.6-1.3) mg/dl Est Cr Clr Drug Dosing ml/min Est GFR ( Amer) Est GFR (Non-Af Amer) BUN/Creatinine Ratio (10-20) Glucose (70-99) mg/dl POC Glucose 165 H 157 H (70-99) POC Glucose (other) (70-99) mg/dl Estimat Average Glucose mg/dl Hemoglobin A1c (4.5-5.6) % Calcium (8.5-10.1) mg/dl POC Ioniz Calcium Naif (1.12-1.32) mmol/l Phosphorus (2.5-4.9) mg/dl Magnesium (1.8-2.4) mg/dl Total Bilirubin (0.2-1) mg/dl Direct Bilirubin (0-0.2) mg/dl AST (15-37) U/L ALT (12-78) U/L Alkaline Phosphatase (45-117) U/L Troponin I (0-0.045) ng/ml NT-Pro-B Natriuret Pep (0-1800) pg/ml Total Protein (6.4-8.2) gm/dl Albumin (3.4-5.0) gm/dl Globulin (2.5-4.0) gm/dl Albumin/Globulin Ratio (0.9-2) Beta-Hydroxybutyric Acd (0.2-2.81) mg/dl Urine Color Urine Appearance (Clear) Urine pH (4.5-7.5) Ur Specific Cassatt (1.000-1.030) Urine Protein (Negative) Urine Glucose (UA) (Negative) Urine Ketones (Negative) Urine Blood (Negative) Urine Nitrite (Negative) Urine Bilirubin (Negative) Urine Urobilinogen (Negative) Ur Leukocyte Esterase (Negative) Urine WBC (Auto) (0-5) /hpf Urine RBC (Auto) (0-4) /hpf U Hyaline Cast (Auto) (0-5) /lpf U Epithel Cells (Auto) (0-5) /lpf Urine Bacteria (Auto) (Negative) Nasal Screen MRSA (PCR) (Negative) Influenza Type A (PCR) (Neg) Influenza Type B (PCR) (Neg) 09/11/18 09/12/18 09/12/18 Range/Units 23:58 05:37 05:37 WBC (4.8-10.8) K/uL RBC (4.2-5.4) M/uL Hgb (12.0-16.0) g/dL POC Hgb (12.0-16.0) g/dl Hct (37-47) % POC Hct (37-47) % MCV (80-100) fL MCH (25-34) pg MCHC (32-36) g/dL RDW Std Deviation (36.4-46.3) fL RDW Coeff of Fercho (11.5-14.5) % Plt Count (130-400) K/uL MPV (7.4-10.4) fL Immature Gran % (Auto) % Neut % (Auto) % Lymph % (Auto) % Smith % (Auto) % Eos % (Auto) % Baso % (Auto) % Immature Gran # (Auto) (0.00-0.02) K/uL Neut # (Auto) (1.4-6.5) K/uL Lymph # (Auto) (1.2-3.4) K/uL Smith # (Auto) (0.11-0.59) K/uL Eos # (Auto) (0-0.5) K/uL Baso # (Auto) (0-0.2) K/uL PT (9.0-12.0) Seconds INR (0.9-1.1) APTT 69.1 H* (21.0-31.0) Seconds PTT Ratio 2.5 D-Dimer (0-500) ug/L FEU POC Sodium (135-144) mEq/L Sodium 141 (136-145) mmol/L POC Potassium (3.3-5.0) mEq/L Potassium 3.3 L D (3.5-5.1) mmol/L POC Chloride (101-112) mEq/L Chloride 106 (98-107) mmol/L Carbon Dioxide 31 (21-32) mmol/L POC Total CO2 (24-31) mEq/l Anion Gap 4.0 (3-11) POC Anion Gap (16-25) mmol/L POC BUN (7-18) mg/dl BUN 23 H (7-18) mg/dl Creatinine 0.87 (0.6-1.2) mg/dl POC Creatinine (0.6-1.3) mg/dl Est Cr Clr Drug Dosing 45.0 ml/min Est GFR ( Amer) 75.0 Est GFR (Non-Af Amer) 64.7 BUN/Creatinine Ratio 26.0 H (10-20) Glucose 116 H (70-99) mg/dl POC Glucose 139 H (70-99) POC Glucose (other) (70-99) mg/dl Estimat Average Glucose mg/dl Hemoglobin A1c (4.5-5.6) % Calcium 8.3 L (8.5-10.1) mg/dl POC Ioniz Calcium Naif (1.12-1.32) mmol/l Phosphorus 2.7 (2.5-4.9) mg/dl Magnesium 2.2 (1.8-2.4) mg/dl Total Bilirubin 0.3 (0.2-1) mg/dl Direct Bilirubin (0-0.2) mg/dl AST 15 (15-37) U/L ALT 20 (12-78) U/L Alkaline Phosphatase 55 (45-117) U/L Troponin I 1.330 H* (0-0.045) ng/ml NT-Pro-B Natriuret Pep (0-1800) pg/ml Total Protein 6.5 (6.4-8.2) gm/dl Albumin 2.8 L (3.4-5.0) gm/dl Globulin 3.7 (2.5-4.0) gm/dl Albumin/Globulin Ratio 0.8 L (0.9-2) Beta-Hydroxybutyric Acd (0.2-2.81) mg/dl Urine Color Urine Appearance (Clear) Urine pH (4.5-7.5) Ur Specific Cassatt (1.000-1.030) Urine Protein (Negative) Urine Glucose (UA) (Negative) Urine Ketones (Negative) Urine Blood (Negative) Urine Nitrite (Negative) Urine Bilirubin (Negative) Urine Urobilinogen (Negative) Ur Leukocyte Esterase (Negative) Urine WBC (Auto) (0-5) /hpf Urine RBC (Auto) (0-4) /hpf U Hyaline Cast (Auto) (0-5) /lpf U Epithel Cells (Auto) (0-5) /lpf Urine Bacteria (Auto) (Negative) Nasal Screen MRSA (PCR) (Negative) Influenza Type A (PCR) (Neg) Influenza Type B (PCR) (Neg) 09/12/18 09/12/18 09/12/18 Range/Units 05:37 06:06 11:56 WBC (4.8-10.8) K/uL RBC 2.90 L (4.2-5.4) M/uL Hgb (12.0-16.0) g/dL POC Hgb (12.0-16.0) g/dl Hct (37-47) % POC Hct (37-47) % MCV 91.7 (80-100) fL MCH 29.7 (25-34) pg MCHC 32.3 (32-36) g/dL RDW Std Deviation 64.6 H (36.4-46.3) fL RDW Coeff of Fercho 19.6 H (11.5-14.5) % Plt Count (130-400) K/uL MPV 9.6 (7.4-10.4) fL Immature Gran % (Auto) 0.2 % Neut % (Auto) 52.7 % Lymph % (Auto) 28.4 % Smith % (Auto) 15.9 % Eos % (Auto) 2.6 % Baso % (Auto) 0.2 % Immature Gran # (Auto) 0.02 (0.00-0.02) K/uL Neut # (Auto) 4.42 (1.4-6.5) K/uL Lymph # (Auto) 2.39 (1.2-3.4) K/uL Smith # (Auto) 1.34 H (0.11-0.59) K/uL Eos # (Auto) 0.22 (0-0.5) K/uL Baso # (Auto) 0.02 (0-0.2) K/uL PT (9.0-12.0) Seconds INR (0.9-1.1) APTT (21.0-31.0) Seconds PTT Ratio D-Dimer (0-500) ug/L FEU POC Sodium (135-144) mEq/L Sodium (136-145) mmol/L POC Potassium (3.3-5.0) mEq/L Potassium (3.5-5.1) mmol/L POC Chloride (101-112) mEq/L Chloride (98-107) mmol/L Carbon Dioxide (21-32) mmol/L POC Total CO2 (24-31) mEq/l Anion Gap (3-11) POC Anion Gap (16-25) mmol/L POC BUN (7-18) mg/dl BUN (7-18) mg/dl Creatinine (0.6-1.2) mg/dl POC Creatinine (0.6-1.3) mg/dl Est Cr Clr Drug Dosing ml/min Est GFR ( Amer) Est GFR (Non-Af Amer) BUN/Creatinine Ratio (10-20) Glucose (70-99) mg/dl POC Glucose 126 H 127 H (70-99) POC Glucose (other) (70-99) mg/dl Estimat Average Glucose mg/dl Hemoglobin A1c (4.5-5.6) % Calcium (8.5-10.1) mg/dl POC Ioniz Calcium Naif (1.12-1.32) mmol/l Phosphorus (2.5-4.9) mg/dl Magnesium (1.8-2.4) mg/dl Total Bilirubin (0.2-1) mg/dl Direct Bilirubin (0-0.2) mg/dl AST (15-37) U/L ALT (12-78) U/L Alkaline Phosphatase (45-117) U/L Troponin I (0-0.045) ng/ml NT-Pro-B Natriuret Pep (0-1800) pg/ml Total Protein (6.4-8.2) gm/dl Albumin (3.4-5.0) gm/dl Globulin (2.5-4.0) gm/dl Albumin/Globulin Ratio (0.9-2) Beta-Hydroxybutyric Acd (0.2-2.81) mg/dl Urine Color Urine Appearance (Clear) Urine pH (4.5-7.5) Ur Specific Cassatt (1.000-1.030) Urine Protein (Negative) Urine Glucose (UA) (Negative) Urine Ketones (Negative) Urine Blood (Negative) Urine Nitrite (Negative) Urine Bilirubin (Negative) Urine Urobilinogen (Negative) Ur Leukocyte Esterase (Negative) Urine WBC (Auto) (0-5) /hpf Urine RBC (Auto) (0-4) /hpf U Hyaline Cast (Auto) (0-5) /lpf U Epithel Cells (Auto) (0-5) /lpf Urine Bacteria (Auto) (Negative) Nasal Screen MRSA (PCR) (Negative) Influenza Type A (PCR) (Neg) Influenza Type B (PCR) (Neg) 09/12/18 09/12/18 09/12/18 Range/Units 13:09 16:11 20:19 WBC (4.8-10.8) K/uL RBC (4.2-5.4) M/uL Hgb (12.0-16.0) g/dL POC Hgb (12.0-16.0) g/dl Hct (37-47) % POC Hct (37-47) % MCV (80-100) fL MCH (25-34) pg MCHC (32-36) g/dL RDW Std Deviation (36.4-46.3) fL RDW Coeff of Fercho (11.5-14.5) % Plt Count (130-400) K/uL MPV (7.4-10.4) fL Immature Gran % (Auto) % Neut % (Auto) % Lymph % (Auto) % Smith % (Auto) % Eos % (Auto) % Baso % (Auto) % Immature Gran # (Auto) (0.00-0.02) K/uL Neut # (Auto) (1.4-6.5) K/uL Lymph # (Auto) (1.2-3.4) K/uL Smith # (Auto) (0.11-0.59) K/uL Eos # (Auto) (0-0.5) K/uL Baso # (Auto) (0-0.2) K/uL PT (9.0-12.0) Seconds INR (0.9-1.1) APTT 40.0 H (21.0-31.0) Seconds PTT Ratio 1.5 D-Dimer (0-500) ug/L FEU POC Sodium (135-144) mEq/L Sodium (136-145) mmol/L POC Potassium (3.3-5.0) mEq/L Potassium (3.5-5.1) mmol/L POC Chloride (101-112) mEq/L Chloride (98-107) mmol/L Carbon Dioxide (21-32) mmol/L POC Total CO2 (24-31) mEq/l Anion Gap (3-11) POC Anion Gap (16-25) mmol/L POC BUN (7-18) mg/dl BUN (7-18) mg/dl Creatinine (0.6-1.2) mg/dl POC Creatinine (0.6-1.3) mg/dl Est Cr Clr Drug Dosing ml/min Est GFR ( Amer) Est GFR (Non-Af Amer) BUN/Creatinine Ratio (10-20) Glucose (70-99) mg/dl POC Glucose 154 H 166 H (70-99) POC Glucose (other) (70-99) mg/dl Estimat Average Glucose mg/dl Hemoglobin A1c (4.5-5.6) % Calcium (8.5-10.1) mg/dl POC Ioniz Calcium Naif (1.12-1.32) mmol/l Phosphorus (2.5-4.9) mg/dl Magnesium (1.8-2.4) mg/dl Total Bilirubin (0.2-1) mg/dl Direct Bilirubin (0-0.2) mg/dl AST (15-37) U/L ALT (12-78) U/L Alkaline Phosphatase (45-117) U/L Troponin I (0-0.045) ng/ml NT-Pro-B Natriuret Pep (0-1800) pg/ml Total Protein (6.4-8.2) gm/dl Albumin (3.4-5.0) gm/dl Globulin (2.5-4.0) gm/dl Albumin/Globulin Ratio (0.9-2) Beta-Hydroxybutyric Acd (0.2-2.81) mg/dl Urine Color Urine Appearance (Clear) Urine pH (4.5-7.5) Ur Specific Cassatt (1.000-1.030) Urine Protein (Negative) Urine Glucose (UA) (Negative) Urine Ketones (Negative) Urine Blood (Negative) Urine Nitrite (Negative) Urine Bilirubin (Negative) Urine Urobilinogen (Negative) Ur Leukocyte Esterase (Negative) Urine WBC (Auto) (0-5) /hpf Urine RBC (Auto) (0-4) /hpf U Hyaline Cast (Auto) (0-5) /lpf U Epithel Cells (Auto) (0-5) /lpf Urine Bacteria (Auto) (Negative) Nasal Screen MRSA (PCR) (Negative) Influenza Type A (PCR) (Neg) Influenza Type B (PCR) (Neg) 09/12/18 09/13/18 09/13/18 Range/Units 23:11 05:48 05:48 WBC 8.84 (4.8-10.8) K/uL RBC 2.98 L (4.2-5.4) M/uL Hgb 9.0 L (12.0-16.0) g/dL POC Hgb (12.0-16.0) g/dl Hct 27.1 L (37-47) % POC Hct (37-47) % MCV 90.9 (80-100) fL MCH 30.2 (25-34) pg MCHC 33.2 (32-36) g/dL RDW Std Deviation 62.4 H (36.4-46.3) fL RDW Coeff of Fercho 19.2 H (11.5-14.5) % Plt Count 159 (130-400) K/uL MPV 9.7 (7.4-10.4) fL Immature Gran % (Auto) % Neut % (Auto) % Lymph % (Auto) % Smith % (Auto) % Eos % (Auto) % Baso % (Auto) % Immature Gran # (Auto) (0.00-0.02) K/uL Neut # (Auto) (1.4-6.5) K/uL Lymph # (Auto) (1.2-3.4) K/uL Smith # (Auto) (0.11-0.59) K/uL Eos # (Auto) (0-0.5) K/uL Baso # (Auto) (0-0.2) K/uL PT (9.0-12.0) Seconds INR (0.9-1.1) APTT (21.0-31.0) Seconds PTT Ratio D-Dimer (0-500) ug/L FEU POC Sodium (135-144) mEq/L Sodium 137 (136-145) mmol/L POC Potassium (3.3-5.0) mEq/L Potassium 3.4 L (3.5-5.1) mmol/L POC Chloride (101-112) mEq/L Chloride 103 (98-107) mmol/L Carbon Dioxide 30 (21-32) mmol/L POC Total CO2 (24-31) mEq/l Anion Gap 4.0 (3-11) POC Anion Gap (16-25) mmol/L POC BUN (7-18) mg/dl BUN 18 (7-18) mg/dl Creatinine 0.70 (0.6-1.2) mg/dl POC Creatinine (0.6-1.3) mg/dl Est Cr Clr Drug Dosing 55.5 ml/min Est GFR ( Amer) 97.5 Est GFR (Non-Af Amer) 84.2 BUN/Creatinine Ratio 26.2 H (10-20) Glucose 155 H (70-99) mg/dl POC Glucose 200 H (70-99) POC Glucose (other) (70-99) mg/dl Estimat Average Glucose mg/dl Hemoglobin A1c (4.5-5.6) % Calcium 8.1 L (8.5-10.1) mg/dl POC Ioniz Calcium Naif (1.12-1.32) mmol/l Phosphorus (2.5-4.9) mg/dl Magnesium (1.8-2.4) mg/dl Total Bilirubin (0.2-1) mg/dl Direct Bilirubin (0-0.2) mg/dl AST (15-37) U/L ALT (12-78) U/L Alkaline Phosphatase (45-117) U/L Troponin I (0-0.045) ng/ml NT-Pro-B Natriuret Pep (0-1800) pg/ml Total Protein (6.4-8.2) gm/dl Albumin (3.4-5.0) gm/dl Globulin (2.5-4.0) gm/dl Albumin/Globulin Ratio (0.9-2) Beta-Hydroxybutyric Acd (0.2-2.81) mg/dl Urine Color Urine Appearance (Clear) Urine pH (4.5-7.5) Ur Specific Cassatt (1.000-1.030) Urine Protein (Negative) Urine Glucose (UA) (Negative) Urine Ketones (Negative) Urine Blood (Negative) Urine Nitrite (Negative) Urine Bilirubin (Negative) Urine Urobilinogen (Negative) Ur Leukocyte Esterase (Negative) Urine WBC (Auto) (0-5) /hpf Urine RBC (Auto) (0-4) /hpf U Hyaline Cast (Auto) (0-5) /lpf U Epithel Cells (Auto) (0-5) /lpf Urine Bacteria (Auto) (Negative) Nasal Screen MRSA (PCR) (Negative) Influenza Type A (PCR) (Neg) Influenza Type B (PCR) (Neg) 09/13/18 09/13/18 09/13/18 Range/Units 07:00 12:02 16:49 WBC (4.8-10.8) K/uL RBC (4.2-5.4) M/uL Hgb (12.0-16.0) g/dL POC Hgb (12.0-16.0) g/dl Hct (37-47) % POC Hct (37-47) % MCV (80-100) fL MCH (25-34) pg MCHC (32-36) g/dL RDW Std Deviation (36.4-46.3) fL RDW Coeff of Fercho (11.5-14.5) % Plt Count (130-400) K/uL MPV (7.4-10.4) fL Immature Gran % (Auto) % Neut % (Auto) % Lymph % (Auto) % Smith % (Auto) % Eos % (Auto) % Baso % (Auto) % Immature Gran # (Auto) (0.00-0.02) K/uL Neut # (Auto) (1.4-6.5) K/uL Lymph # (Auto) (1.2-3.4) K/uL Smith # (Auto) (0.11-0.59) K/uL Eos # (Auto) (0-0.5) K/uL Baso # (Auto) (0-0.2) K/uL PT (9.0-12.0) Seconds INR (0.9-1.1) APTT (21.0-31.0) Seconds PTT Ratio D-Dimer (0-500) ug/L FEU POC Sodium (135-144) mEq/L Sodium (136-145) mmol/L POC Potassium (3.3-5.0) mEq/L Potassium (3.5-5.1) mmol/L POC Chloride (101-112) mEq/L Chloride (98-107) mmol/L Carbon Dioxide (21-32) mmol/L POC Total CO2 (24-31) mEq/l Anion Gap (3-11) POC Anion Gap (16-25) mmol/L POC BUN (7-18) mg/dl BUN (7-18) mg/dl Creatinine (0.6-1.2) mg/dl POC Creatinine (0.6-1.3) mg/dl Est Cr Clr Drug Dosing ml/min Est GFR ( Amer) Est GFR (Non-Af Amer) BUN/Creatinine Ratio (10-20) Glucose (70-99) mg/dl POC Glucose 150 H 179 H 211 H (70-99) POC Glucose (other) (70-99) mg/dl Estimat Average Glucose mg/dl Hemoglobin A1c (4.5-5.6) % Calcium (8.5-10.1) mg/dl POC Ioniz Calcium Naif (1.12-1.32) mmol/l Phosphorus (2.5-4.9) mg/dl Magnesium (1.8-2.4) mg/dl Total Bilirubin (0.2-1) mg/dl Direct Bilirubin (0-0.2) mg/dl AST (15-37) U/L ALT (12-78) U/L Alkaline Phosphatase (45-117) U/L Troponin I (0-0.045) ng/ml NT-Pro-B Natriuret Pep (0-1800) pg/ml Total Protein (6.4-8.2) gm/dl Albumin (3.4-5.0) gm/dl Globulin (2.5-4.0) gm/dl Albumin/Globulin Ratio (0.9-2) Beta-Hydroxybutyric Acd (0.2-2.81) mg/dl Urine Color Urine Appearance (Clear) Urine pH (4.5-7.5) Ur Specific Cassatt (1.000-1.030) Urine Protein (Negative) Urine Glucose (UA) (Negative) Urine Ketones (Negative) Urine Blood (Negative) Urine Nitrite (Negative) Urine Bilirubin (Negative) Urine Urobilinogen (Negative) Ur Leukocyte Esterase (Negative) Urine WBC (Auto) (0-5) /hpf Urine RBC (Auto) (0-4) /hpf U Hyaline Cast (Auto) (0-5) /lpf U Epithel Cells (Auto) (0-5) /lpf Urine Bacteria (Auto) (Negative) Nasal Screen MRSA (PCR) (Negative) Influenza Type A (PCR) (Neg) Influenza Type B (PCR) (Neg) [facility] 09/13/18 05:48 Sodium 137 Potassium 3.4 L Chloride 103 Carbon Dioxide 30 BUN 18 Creatinine 0.70 Glucose 155 H Calcium 8.1 L Medications Administered Current Inpatient Medications Aspirin (Ecotrin Ectab) 81 mg PO QAM [facility] Stop: 10/11/18 09:44 Last Admin: 09/13/18 07:58 Dose: 81 mg Documented by: Carvedilol (Coreg) 12.5 mg PO BID [facility] Stop: 10/11/18 09:44 Last Admin: 09/13/18 07:56 Dose: 12.5 mg Documented by: Dextrose (Dextrose 50%) 25 - 50 ml IV UD PRN; Protocol PRN Reason: Hypoglycemia Protocol Stop: 10/10/18 19:59 Enoxaparin Sodium (Lovenox) 40 mg SQ QAM [facility] Stop: 10/13/18 08:59 Last Admin: 09/13/18 08:07 Dose: 40 mg Documented by: Fluticasone Propionate (Flonase) 2 sprays NA DAILY [facility] Stop: 10/11/18 08:59 Last Admin: 09/13/18 08:06 Dose: 2 sprays Documented by: Glucagon (Glucagen) 1 mg SQ UD PRN; Protocol PRN Reason: Hypoglycemia Protocol Stop: 10/10/18 19:59 Glucose (Glucose 40%) 15 - 30 gm PO UD PRN; Protocol PRN Reason: Hypoglycemia Protocol Stop: 10/10/18 19:59 Glucose (Dex4 Glucose) 4 - 8 tabs PO UD PRN; Protocol PRN Reason: Hypoglycemia Protocol Stop: 10/10/18 19:59 Haloperidol (Haldol) 1 mg PO Q4H PRN PRN Reason: Agitation Stop: 10/12/18 11:41 Acetaminophen (Ofirmev) 1,000 mg in 100 mls @ 400 mls/hr IV Q8H [facility] Stop: 10/10/18 19:59 Last Infusion: 09/13/18 11:53 Dose: Infused Documented by: Furosemide 40 mg/ Syringe 4 mls @ 4 mls/min IV DAILY [facility] Stop: 10/11/18 08:59 Last Admin: 09/13/18 08:07 Dose: 4 mls/min Documented by: Pantoprazole Sodium 40 mg/ (Syringe) 10 mls @ 5 mls/min IV DAILY@1100 [facility] Stop: 09/14/18 11:01 Last Admin: 09/13/18 11:38 Dose: 5 mls/min Documented by: Lorazepam (Ativan) 0.5 mg in 1 mls @ 1 mls/min IV Q6H PRN PRN Reason: Anxiety/Agitation Stop: 10/12/18 06:36 Last Admin: 09/12/18 07:04 Dose: 1 mls/min Documented by: Insulin Aspart (Novolog Flexpen) 0 units SC [facility] Stop: 10/12/18 23:14 Last Admin: 09/13/18 17:57 Dose: 2 units Documented by: Insulin Detemir (Levemir Flextouch) 0 units SC HS [facility]; Protocol Stop: 10/11/18 20:59 Last Admin: 09/12/18 20:53 Dose: 15 units Documented by: Ioversol (Optiray 320 125ml) 120 ml IV ONCE PRN PRN Reason: Interaction Checking Stop: 09/14/18 14:32 Last Admin: 09/10/18 14:34 Dose: 120 ml Documented by: Linezolid (Zyvox) 600 mg PO BID [facility] Stop: 09/20/18 20:59 Last Admin: 09/13/18 07:59 Dose: 600 mg Documented by: Lorazepam (Ativan) 0.5 mg PO TID PRN PRN Reason: Anxiety Stop: 10/10/18 18:25 Losartan Potassium (Cozaar) 25 mg PO QAM [facility] Stop: 10/13/18 16:59 Last Admin: 09/13/18 18:19 Dose: Not Given Documented by: Miscellaneous (Order Awaiting Action) 1 ea N/A QS [facility] Stop: 10/11/18 00:00 Last Admin: 09/13/18 17:54 Dose: Not Given Documented by: Miscellaneous (Order Awaiting Action) 1 ea N/A QS [facility] Stop: 10/11/18 00:00 Last Admin: 09/13/18 17:54 Dose: Not Given Documented by: Miscellaneous (Carbohydrates For Hypoglycemia) 15 - 30 gm PO UD PRN PRN Reason: Hypoglycemia Treatment Stop: 10/10/18 19:59 Miscellaneous Information (Consult Glycemic Management Pharmacy) 1 ea N/A UD PRN PRN Reason: Consult Stop: 10/10/18 19:23 Nystatin (Mycostatin) 1 appln EXT TID [facility] Stop: 10/10/18 20:59 Last Admin: 09/13/18 13:05 Dose: 1 appln Documented by: Potassium Chloride (Klor-Con M20) 20 meq PO QAM [facility] Stop: 10/14/18 08:59 Quetiapine Fumarate (Seroquel) 50 mg PO QAM [facility] Stop: 10/11/18 08:59 Last Admin: 09/13/18 08:00 Dose: 50 mg Documented by: Quetiapine Fumarate (Seroquel) 75 mg PO [facility] Stop: 10/10/18 20:59 Last Admin: 09/12/18 20:04 Dose: 75 mg Documented by: Simvastatin (Zocor) 20 mg PO PM [facility] Stop: 10/12/18 20:59 Last Admin: 09/12/18 20:05 Dose: 20 mg Documented by: Tolterodine Tartrate (Detrol) 1 mg PO HS [facility] Stop: 10/10/18 20:59 Last Admin: 09/12/18 20:03 Dose: 1 mg Documented by: (1) Osteomyelitis Osteomyelitis type: unspecified type Osteomyelitis location: foot Laterality: right Qualified Code(s): M86.9 - Osteomyelitis, unspecified (2) Diabetic foot ulcer associated with type 2 diabetes mellitus Diabetic foot ulcer location: toe Laterality: right Non-pressure ulcer stage: with fat layer exposed Qualified Code(s): E11.621 - Type 2 diabetes mellitus with foot ulcer; L97.512 - Non-pressure chronic ulcer of other part of right foot with fat layer exposed
[2018-09-13] MEDS: LORazepam 0.5 MG/1 ML VIAL IV PRN (19:25)
[2018-09-13] MEDS: INSULIN DETEMIR FLEXPEN/FLEX TOUCH 100 UNITS/ML 3ML SC SCH (20:11)
[2018-09-13] MEDS: TOLTERODINE TARTRATE 1 MG TAB PO SCH (20:53)
[2018-09-14] MEDS: OLANZapine 10 MG/2.1 ML SDV IM PRN (03:26)
[2018-09-14] MEDS: ACETAMINOPHEN 1,000 MG/100 ML VIAL IV SCH ×3 (04:26→20:15)
[2018-09-14] MEDS ORDERED: MICONAZOLE NITRATE POWDER 43 GM EXT PRN (05:20)
[2018-09-14 07:06] LABS: BUN Creatinine Ratio 15.6 (10-20); Calcium 8.9 mg/dl (8.5-10.1); Creatinine Clr Calc Pharmacy 47.4 ml/min; Est GFR (African American) 80.6; Est GFR (Non-African American) 69.5; Potassium 3.2 mmol/L (3.5-5.1)
[2018-09-14] MEDS: ENOXAPARIN INJ 40 MG/0.4 ML SYR SQ SCH (07:58)
[2018-09-14] MEDS: FUROSEMIDE 40 MG in SYRINGE 0 ML IV SCH (07:58)
[2018-09-14] MEDS: CARVEDILOL 12.5 MG TAB PO SCH ×2 (08:05→20:43)
[2018-09-14] MEDS: QUETIAPINE FUMARATE 25 MG TABLET PO SCH ×2 (08:06→20:45)
[2018-09-14] MEDS: POTASSIUM CHLORIDE 20 MEQ TABCR PO SCH (08:07)
[2018-09-14] MEDS: LOSARTAN POTASSIUM 25 MG TAB PO SCH (08:07)
[2018-09-14] MEDS: ASPIRIN 81 MG ECTAB PO SCH (08:08)
[2018-09-14] MEDS: FLUTICASONE PROPIONATE NA SPR 16 GM BTL SCH (08:09)
[2018-09-14] MEDS: LINEZOLID 600 MG TAB PO SCH ×2 (08:09→20:45)
[2018-09-14] MEDS: NYSTATIN POWDER 15GM BTL EXT SCH ×3 (08:09→20:44)
[2018-09-14] MEDS: INSULIN ASPART 100 UNITS/ML 3 ML PEN SC SCH ×4 (09:06→20:46)
[2018-09-14] MEDS: PANTOprazole 40 MG in SYRINGE 0 ML IV SCH (10:50)
[2018-09-14] MEDS ORDERED: POTASSIUM CHLORIDE 20 MEQ TABCR PO STA (11:48)
--- NOTE | 2018-09-14 11:58 | Cardiology Progress Note ---
Date of Service September 14, 2018 Assessment & Plan (1) Systolic CHF, acute: (2) Coronary artery disease: (3) Dementia: (4) Osteomyelitis: Continue conservative therapy. Transition from IV furosemide to oral. Her admission dose was furosemide 20 mg by mouth "as needed ". We will in turn discharge her on a plan of furosemide 40 mg by mouth daily. She has ongoing hypokalemia with IV diuretic therapy. Potassium was 3.2 today despite oral replacement. She received 20 mEq of potassium chloride earlier this morning, will administer another 20 mEq, and will start spironolactone 25 mg daily. There is been difficulty with the patient taking her oral medications earlier this hospital stay, but she appears to be taking them at present. At time of discharge, if potassium stable, would plan on discharge on spironolactone with outstanding potassium supplementation and plan for repeat chemistry panel [facility]. Statin therapy has been administered earlier this hospital stay but is now discontinued due to past history of intolerance. Subjective Chief complaint: Follow-up cardiomyopathy, LV systolic dysfunction Subjective: Patient seen and examined in room 423. She is comfortable, and pleasant. Noted ongoing cognitive impairment, she is not provide helpful subjective answers. She is no longer on telemetry. Physical Exam Constitutional: no acute distress Respiratory: normal respiratory effort, lungs clear to auscultation Cardiovascular: RRR, no murmur, no edema Heart Sounds: + murmur (1/6 systolic murmur) Extremities: no edema Gastrointestinal (Abdomen): normal bowel sounds, soft, nontender, no hepatosplenomegaly Genitourinary: Nam catheter in place draining clear yellow urine Results & Data Vital Signs (Past 12 Hours) Vital Signs Temp Pulse Resp BP Pulse Ox 09/14/18 07:00 36.9 C 88 20 166/82 H 95 (1) Osteomyelitis Osteomyelitis type: unspecified type Osteomyelitis location: foot Laterality: right Qualified Code(s): M86.9 - Osteomyelitis, unspecified
[2018-09-14] MEDS: SPIRONOLACTONE 25 MG TAB PO SCH (13:05)
--- NOTE | 2018-09-14 15:09 | Pharmacy Report ---
Pharmacy Glycemic Short Note 2 - Date of Service September 14, 2018 - Glycemic Short BSG Results (Last 24 hours): 09/13/18 09/13/18 09/14/18 16:49 20:04 05:52 Glucose 94 POC Glucose 211 H 191 H 09/14/18 09/14/18 08:05 11:38 Glucose POC Glucose 129 H 248 H OUTPATIENT ANTIDIABETIC REGIMEN: * Levemir 25 units HS * Novolog 9 units qam, 11 units qpm ASSESSMENT: 09/14/18: * Patient received total 32 units of insulin yesterday- 25 units from basal Levemir and 7 units from Novolog. * Fasting BSG at goal today but post-prandial BSGs were elevated yesterday. Novolog correction was tightened to 30 this AM. * Lunch BSG was elevated to 248, therefore carb ratio was also tightened to 8 at lunch. * Levemir 25 units HS resumed for tonight which is her home dosing regimen. 09/13/18: * Patient received total of 19 units insulin yesterday- 15 units of this was basal Levemir at HS. * She was started on a diet yesterday with dinner, BSG was above goal at HS. Additional Levemir 5 units was given this AM. * Fasting BSG today = 150. Lunch BSG trended upto 179 - therefore carb ratio tightened to 10 with lunch. * HS Levemir was increased and ordered based on a scale. 09/11/18: * Patient BSG down trending nicely after 15 units of levemir last evening and 5 units this morning. Will place on a sliding scale this evening with total dose not to exceed 20 units while NPO. PLAN FOR INPATIENT GLYCEMIC CONTROL: * Basal insulin: * Levemir 25 units SQ HS * Bolus insulin: tightened * NovoLog per scale ACHS or Q6hrs while NPO * Goal Range: Low 120 mg/dL - High 150 mg/dL * Correction Factor: 30 mg/dL/unit * Nutritional / Prandial insulin per carb ratio of 1 unit per 8 grams CHO consumed PLAN FOR DISCHARGE: * HbA1c = 8.7% on 09/11/18 indicates sub-optimal control of diabetes at [facility]. * Patient has been requiring less insulin while in-patient thus far compared to home insulin regimen. * Recommend continue current outpatient insulin regimen but with SMBG at every meal and HS and dose titration based on outpatient provider.
--- NOTE | 2018-09-14 18:37 | Hospitalist Progress Note ---
Date of Service September 14, 2018 Assessment & Plan (1) Systolic CHF, acute: Appears compensated, continue current medical management. Spironolactnoe added to regimen in setting of hypokalemia. Lasix IV switched to Lasix 40mg PO daily per Cardiology team. Repeat BMP in 1 week with adjustments outpatient as needed. Noted statin intolerance, and simvastatin was stopped for this reason. (2) Abdominal pain: resolved, evaluation for cholecystitis was negative. (3) Non-ST elevation OK (NSTEMI): Medically managed with IV heparin, Coreg, aspirin, Cozaar. Zocor stopped 2/2 h/o statin intolerance. (4) Osteomyelitis: Chronic, continue Zyvox per home regimen. (5) Diabetic foot ulcer associated with type 2 diabetes mellitus: Chronic, continue wound care (6) Dementia: Severe, end-stage. Continue good day night cycles and frequent reorientation. As patient has aggressive outbursts and sometimes declines p.o. medications including her Seroquel, may need to depend on Ativan or consider other chemical restraint. Continue fall precautions. (7) Ambulatory dysfunction: at her baseline functional status per PT evaluation. No further PT needs at this time. (8) Diabetes mellitus, type 2: slightly elevated blood sugar this evening. Continue current insulin regimen with carb coverage. (9) Statin intolerance: Holding Zocor as above with history of statin intolerance until confirmed she can in fact tolerate this. (10) RADHA inhibitor intolerance: Continue Cozaar. (11) DVT prophylaxis: Lovenox DNR/DNI Dispo-back to [facility] in am. Keysha Chavarria DO [facility] Hospitalist Subjective Doing better today, more calm and lucid from a mental standpoint. Stopped statin yeseterday-uncertain if there was any ill effect from this. Review of Systems Review of Systems: Unobtainable due to mental health condition Physical Exam Physical Exam: CONSTITUTIONAL: WNWD, vitals as above, generally well- appearing, alert and speech is more clear today, appears more at ease. EYES: normal conjunctivae, no scleral icterus ENT: MMM RESPIRATORY: clear to auscultation bilaterally, no rales or wheezes, normal respiratory effort CARDIOVASCULAR: regular rate and rhythm, S1 and 2 heard without murmurs, gallops or rubs, no JVD, no peripheral edema GASTROINTESTINAL: soft, NTND MUSCULOSKELETAL: moves all extremities equally, head is normocephalic and atraumatic SKIN: warm and dry NEUROLOGIC: disoriented without delirium, able to follow instructions PSYCHIATRIC: alert, cooperative Results & Data Vital Signs (Past 12 Hours) Vital Signs Temp Pulse Resp BP Pulse Ox 09/14/18 14:56 36.7 C 92 H 16 138/72 95 09/14/18 07:00 36.9 C 88 20 166/82 H 95 Laboratory Results BMP 09/14/18 05:52 Sodium 139 Potassium 3.2 L Chloride 102 Carbon Dioxide 29 BUN 13 Creatinine 0.82 Glucose 94 Calcium 8.9 Medications Administered Current Inpatient Medications Aspirin (Ecotrin Ectab) 81 mg PO QAM [facility] Stop: 10/11/18 09:44 Last Admin: 09/14/18 08:08 Dose: 81 mg Documented by: Carvedilol (Coreg) 12.5 mg PO BID [facility] Stop: 10/11/18 09:44 Last Admin: 09/14/18 20:43 Dose: 12.5 mg Documented by: Dextrose (Dextrose 50%) 25 - 50 ml IV UD PRN; Protocol PRN Reason: Hypoglycemia Protocol Stop: 10/10/18 19:59 Enoxaparin Sodium (Lovenox) 40 mg SQ QAM [facility] Stop: 10/13/18 08:59 Last Admin: 09/14/18 07:58 Dose: 40 mg Documented by: Fluticasone Propionate (Flonase) 2 sprays NA DAILY [facility] Stop: 10/11/18 08:59 Last Admin: 09/14/18 08:09 Dose: 2 sprays Documented by: Furosemide (Lasix) 40 mg PO QAM [facility] Stop: 10/15/18 08:59 Glucagon (Glucagen) 1 mg SQ UD PRN; Protocol PRN Reason: Hypoglycemia Protocol Stop: 10/10/18 19:59 Glucose (Glucose 40%) 15 - 30 gm PO UD PRN; Protocol PRN Reason: Hypoglycemia Protocol Stop: 10/10/18 19:59 Glucose (Dex4 Glucose) 4 - 8 tabs PO UD PRN; Protocol PRN Reason: Hypoglycemia Protocol Stop: 10/10/18 19:59 Acetaminophen (Ofirmev) 1,000 mg in 100 mls @ 400 mls/hr IV Q8H [facility] Stop: 10/10/18 19:59 Last Admin: 09/15/18 04:27 Dose: Not Given Documented by: Insulin Aspart (Novolog Flexpen) 0 units SC ACHS [facility] Stop: 10/12/18 23:14 Last Admin: 09/14/18 20:46 Dose: 3 units Documented by: Insulin Detemir (Levemir Flextouch) 25 units SC HS [facility] Stop: 10/14/18 20:59 Last Admin: 09/14/18 20:43 Dose: 25 units Documented by: Linezolid (Zyvox) 600 mg PO BID [facility] Stop: 09/20/18 20:59 Last Admin: 09/14/18 20:45 Dose: 600 mg Documented by: Losartan Potassium (Cozaar) 25 mg PO QAM [facility] Stop: 10/13/18 16:59 Last Admin: 09/14/18 08:07 Dose: 25 mg Documented by: Miconazole Nitrate (Desenex) 1 appln EXT PRN PRN PRN Reason: Affected Skin Folds Stop: 10/14/18 05:19 Last Admin: 09/14/18 05:53 Dose: 1 appln Documented by: Miscellaneous (Order Awaiting Action) 1 ea N/A QS [facility] Stop: 10/11/18 00:00 Last Admin: 09/14/18 22:44 Dose: Not Given Documented by: Miscellaneous (Order Awaiting Action) 1 ea N/A QS [facility] Stop: 10/11/18 00:00 Last Admin: 09/14/18 22:44 Dose: Not Given Documented by: Miscellaneous (Carbohydrates For Hypoglycemia) 15 - 30 gm PO UD PRN PRN Reason: Hypoglycemia Treatment Stop: 10/10/18 19:59 Miscellaneous Information (Consult Glycemic Management Pharmacy) 1 ea N/A UD PRN PRN Reason: Consult Stop: 10/10/18 19:23 Nystatin (Mycostatin) 1 appln EXT TID [facility] Stop: 10/10/18 20:59 Last Admin: 09/14/18 20:44 Dose: 1 appln Documented by: Olanzapine (Zyprexa) 2.5 mg IM Q4H PRN PRN Reason: Anxiety/Agitation Stop: 10/14/18 03:10 Last Admin: 09/15/18 00:00 Dose: 2.5 mg Documented by: Potassium Chloride (Klor-Con M20) 20 meq PO QAM [facility] Stop: 10/14/18 08:59 Last Admin: 09/14/18 08:07 Dose: 20 meq Documented by: Quetiapine [facility]umar[facility] ([facility]eroquel) [facility]: 10/11/18 08:59 Last Admin: 09/14/18 08:06 Dose: 50 mg Documented by: Quetiapine Fumarate (Seroquel) 75 mg PO [facility] Stop: 10/10/18 20:59 Last Admin: 09/14/18 20:45 Dose: 75 mg Documented by: Simvastatin (Zocor) 20 mg PO [facility] Stop: 10/12/18 20:59 Last Admin: 09/12/18 20:05 Dose: 20 mg Documented by: [facility]olactone (Aldactone) [facility] Stop: 10/14/18 11:59 Last Admin: 09/14/18 13:05 Dose: 25 mg Documented by: Tolterodine Tartrate (Detrol) 1 mg PO [facility] Stop: 10/10/18 20:59 Last Admin: 09/14/18 20:43 Dose: 1 mg Documented by: (1) Diabetic foot ulcer associated with type 2 diabetes mellitus Diabetic foot ulcer location: toe Laterality: right Non-pressure ulcer stage: with fat layer exposed Qualified Code(s): E11.621 - Type 2 diabetes mellitus with foot ulcer; L97.512 - Non-pressure chronic ulcer of other part of right foot with fat layer exposed (2) Osteomyelitis Laterality: right Osteomyelitis location: foot Osteomyelitis type: unspecified type Qualified Code(s): M86.9 - Osteomyelitis, unspecified
[2018-09-14] MEDS: TOLTERODINE TARTRATE 1 MG TAB PO SCH (20:43)
[2018-09-14] MEDS ORDERED: INSULIN DETEMIR FLEXPEN/FLEX TOUCH 100 UNITS/ML 3ML SC SCH (21:00)
[2018-09-15] MEDS: OLANZapine 10 MG/2.1 ML SDV IM PRN
[2018-09-15] MEDS ORDERED: OLANZapine 10 MG/2.1 ML SDV IM STA (00:12)
[2018-09-15] MEDS: ACETAMINOPHEN 1,000 MG/100 ML VIAL IV SCH (04:27)
[2018-09-15] MEDS: FLUTICASONE PROPIONATE NA SPR 16 GM BTL SCH (07:55)
[2018-09-15] MEDS ORDERED: ACETAMINOPHEN 500 MG TAB PO PRN (07:56)
[2018-09-15] MEDS: NYSTATIN POWDER 15GM BTL EXT SCH ×2 (07:56→12:57)
[2018-09-15] MEDS: SPIRONOLACTONE 25 MG TAB PO SCH (07:57)
[2018-09-15] MEDS: QUETIAPINE FUMARATE 25 MG TABLET PO SCH (07:57)
[2018-09-15] MEDS: LOSARTAN POTASSIUM 25 MG TAB PO SCH (07:58)
[2018-09-15] MEDS: CARVEDILOL 12.5 MG TAB PO SCH (07:58)
[2018-09-15] MEDS: LINEZOLID 600 MG TAB PO SCH (07:58)
[2018-09-15] MEDS: POTASSIUM CHLORIDE 20 MEQ TABCR PO SCH (07:58)
[2018-09-15] MEDS: ASPIRIN 81 MG ECTAB PO SCH (07:58)
[2018-09-15] MEDS: ENOXAPARIN INJ 40 MG/0.4 ML SYR SQ SCH (08:01)
[2018-09-15] MEDS: INSULIN ASPART 100 UNITS/ML 3 ML PEN SC SCH ×2 (08:46→12:56)
[2018-09-15] MEDS ORDERED: FUROSEMIDE 40 MG TAB PO SCH (09:00)
--- NOTE | 2018-09-15 09:40 | Pharmacy Report ---
Pharmacy Glycemic Short Note 2 - Date of Service September 15, 2018 - Glycemic Short BSG Results (Last 24 hours): 09/14/18 09/14/18 09/14/18 11:38 17:01 20:20 POC Glucose 248 H 232 H 235 H 09/15/18 07:53 POC Glucose 147 H OUTPATIENT ANTIDIABETIC REGIMEN: * Levemir 25 units HS * Novolog 9 units qam, 11 units qpm ASSESSMENT: 09/15/18: * Patient received total 49 units of insulin yesterday, of which 25 units were basal Levemir and 24 from Novolog bolus. * Fasting BSG = 147 (within goal). Will continue Levemir 25 units HS which is also her home dose. * Post prandial BSGs trended up yesterday above 200. Patient was eating more carbs yesterday than the previous day. Therefore, Novolog correction and carb ratio was tightened further this AM with breakfast. 09/14/18: * Patient received total 32 units of insulin yesterday- 25 units from basal Levemir and 7 units from Novolog. * Fasting BSG at goal today but post-prandial BSGs were elevated yesterday. Novolog correction was tightened to 30 this AM. * Lunch BSG was elevated to 248, therefore carb ratio was also tightened to 8 at lunch. * Levemir 25 units HS resumed for tonight which is her home dosing regimen. 09/13/18: * Patient received total of 19 units insulin yesterday- 15 units of this was basal Levemir at HS. * She was started on a diet yesterday with dinner, BSG was above goal at HS. Ad ditional Levemir 5 units was given this AM. * Fasting BSG today = 150. Lunch BSG trended upto 179 - therefore carb ratio tightened to 10 with lunch. * HS Levemir was increased and ordered based on a scale. 09/11/18: * Patient BSG down trending nicely after 15 units of levemir last evening and 5 units this morning. Will place on a sliding scale this evening with total dose not to exceed 20 units while NPO. PLAN FOR INPATIENT GLYCEMIC CONTROL: * Basal insulin: continue * Levemir 25 units SQ HS * Bolus insulin: tightened both correction factor and carb ratio * NovoLog per scale ACHS or Q6hrs while NPO * Goal Range: Low 120 mg/dL - High 150 mg/dL * Correction Factor: 25 mg/dL/unit * Nutritional / Prandial insulin per carb ratio of 1 unit per 7 grams CHO consumed PLAN FOR DISCHARGE: * HbA1c = 8.7% on 09/11/18 indicates sub-optimal control of diabetes at [facility]. * Recommend continue current outpatient insulin regimen but with SMBG at every meal and HS. * Patient can benefit from an insulin dose at lunch time (in addition to AM and PM) based on BG and carbs consumed.
[2018-09-15 10:45] LABS: Nucleated RBC # (auto) 0.08 K/uL (0-0); Nucleated RBC % (auto) 0.7 %
[2018-09-15 11:01] LABS: Hemoglobin 10.1 g/dL (12.0-16.0); Mean Corpuscular Hgb Conc 33.7 g/dL (32-36); Mean Corpuscular Volume 89.6 fL (80-100); Mean Platelet Volume 9.2 fL (7.4-10.4); Platelet Count 244 K/uL (130-400); RDW Coefficient of Variation 19.5 % (11.5-14.5); RDW Standard Deviation 60.9 fL (36.4-46.3); Red Blood Count 3.35 M/uL (4.2-5.4); White Blood Count 11.67 K/uL (4.8-10.8)
[2018-09-15 11:25] LABS: Potassium 3.6 mmol/L (3.5-5.1)
[2018-09-15 11:26] LABS: BUN Creatinine Ratio 16.9 (10-20); Creatinine Clr Calc Pharmacy 39.6 ml/min; Est GFR (African American) 64.9
--- NOTE | 2018-09-21 11:33 | Discharge Summary ---
Date of Service September 21, 2018 Admission HPI Per Admitting Provider 77-year-old female with history of ischemic cardiomyopathy, status post pacemaker and ICD placement, diabetes, hypertension, PVD, GERD, dementia, Resident of [facility], presenting with abdominal pain and elevated blood glucose. History obtained mostly from patient's RN at [facility] as patient has severe dementia and is very confused. [facility] records also reviewed. According to the patient's RN at [facility], the shunt is usually confused, restless, yelling. Today, she was started to have abdominal pain and was noted to have a blood sugar of 300s. She was then brought to the ER for further evaluation and treatment. Patient received afebrile, with generally stable vital signs except for hypoxia 88% on room air. CT scan of the chest revealed bilateral pleural effusions. BNP was elevated at 11,000. Troponins also elevated at 1.3. CT abdomen showed gallbladder distention and gallstones. Patient was given cefepime IV at the ER On exam, the patient was awake and alert but was disoriented, somewhat restless. She seems to be pointing to her epigastric region, but cannot describe the pain. Denies shortness of breath Full review of systems difficult to perform as the patient is very confused. She was not in acute cardiorespiratory distress. From a few minutes later the patient became more agitated, combative, yelling. He was given IV Lasix 40 mg, and Ativan 0.5 mg IV. Patient became more calm afterwards. No other symptoms per staff occupational therapist in [facility]. Primary Care Provider: [facility] Admission Exam Per Admitting Provider General- oriented x 0, not in distress, speaks in sentences with no effort or accessory muscle use Restless, agitated Head- atraumatic Eyes- PERRL, EOMI, anicteric ENT- oropharynx clear Positive JVD Neck- supple, no JVD, no adenopathy, no thyromegaly; carotids +2/2, no bruits appreciated Lungs-positive mild rales bilateral bases, no wheezing, good air entry bilaterally otherwise Heart- normal rate, regular rhythm; no murmur, no gallop, no rub appreciated Abdomen- normal bowel sounds, nondistended, soft, nontender, no masses or hepatosplenomegaly Extremities-mild pretibial edema, no calf tenderness; peripheral pulses intact Neuro- alert, not oriented; all extremities equally, full neurologic evaluation difficult to assess due to patient's severe dementia Skin- warm & dry Principal Diagnosis acute systolic CHF exacerbation NSTEMI Dementia Discharge Data Allergies Allergy/AdvReac Type Severity Reaction Status Date / Time Bactrim Allergy Unknown . Verified 09/05/17 16:36 Penicillins Allergy Unknown . Verified 09/10/18 14:16 sulfamethoxazole Allergy Unknown . Verified 09/10/18 14:16 trimethoprim Allergy Unknown . Verified 09/10/18 14:16 atorvastatin AdvReac Intermediate MUSCLE PAIN Verified 09/10/18 14:16 capsaicin AdvReac Intermediate N/V Verified 09/10/18 14:16 diclofenac AdvReac Intermediate N/V Verified 09/10/18 14:16 Diclopak AdvReac Intermediate N/V Verified 09/05/17 13:27 rosuvastatin AdvReac Intermediate MUSCLE PAIN Verified 09/10/18 14:16 fenofibrate AdvReac Mild SORE MOUTH Verified 09/10/18 14:16 Consultations 09/10/18 15:44 ED Decision to Admit Stat 09/10/18 18:48 Consult Cardiology Routine Consult General Surgery Routine Ordered Studies 09/10/18 14:20 CT abd pelvis IV con only Stat 09/10/18 14:21 CT angio chest PE protocol Stat 09/11/18 06:10 US abdomen limited Routine Hospital Course (1) Systolic CHF, acute: (2) Non-ST elevation ID (NSTEMI): (3) Osteomyelitis: (4) Diabetic foot ulcer associated with type 2 diabetes mellitus: (5) Dementia: (6) Ambulatory dysfunction: (7) Diabetes mellitus, type 2: (8) Statin intolerance: (9) RADHA inhibitor intolerance: 77-year-old female with dementia reported to the ER coming from [facility] dementia unit. She was sent in because of elevated blood sugar to 320. She is a known diabetic on Levemir and NovoLog FlexPen and blood sugar is now in range. There was also reports of dry heaving from staff at [facility]. On arrival to the ER she was found to be 88% on room air and was placed on nasal cannula oxygen supplementation. She was in no acute distress with mild bilateral bilateral wheezing at the lung bases and a soft nontender nondistended abdomen. No pitting edema was seen on exam. Chest x-ray revealed small pleural effusions with bibasilar consolidation as well as congestive heart failure and mild interstitial edema in the setting of an ICD. A CT angiogram of the chest in addition to a CT scan of the abdomen pelvis with IV contrast was performed in the setting of hypoxia and elevated d-dimer as well as generalized abdominal pain and no vomiting. This revealed no evidence of pulmonary embolus, presence of evidence of congestive heart failure, small to moderate pleural effusions with bibasilar atelectasis, patchy groundglass opacities throughout both lungs thought to be likely a component of interstitial edema versus superimposed infection, a distended gallbladder with calcified gallstones that appeared thickened and edematous with mild pericholecystic stranding. As this was concerning for cholecystitis general surgery was contacted for evaluation and ultimately ruled this out. The swelling of the gallbladder was thought to be related to CHF exacerbation and a HIDA scan was negative. She was admitted to the hospitalist service with a noted BNP at 11,000 and an elevated troponin. Initial diagnosis was CHF exacerbation with an elevated troponin. Cardiology was consulted and started her on unfractionated heparin. An echocardiogram was performed revealing new lateral hypokinesis and an interval decline in the overall left ventricular systolic function with an EF of 30 to 35%. Based on elevation of her troponin she appeared to have a non-ST segment elevation myocardial infarction. Her EKG was nondiagnostic due to the ventricular paced rhythm. Per Cardiology, no indication for cardiac catheterization was present. She was continued on medical management which in the setting of dementia, and combativeness has been an issue. She continues to refuse medications and have aggressive outbursts. She is still very confused today and review of systems is unobtainable because of the dementia and confusion present. IV Lasix was continued for diuretic therapy and she was improved from a volume standpoint and was euvolemic at time of discharge. Her oral diuretics were increased and her potassium had been low. Spironolactone was started in lieu of potassium supplementation in addition to Lasix. A 1 week follow-up for lab work was recommended to ensure stability of electrolytes and renal function after these changes. At time of discharge lungs were clear and she was mentating and ambulating at baseline and tolerating p.o. She was sent to [facility] in stable condition with close primary care follow-up recommended. Of note patient was seen to be statin intolerant and statins were stopped. The following day her aggressiveness resolved she did not exhibit further aggressive outbursts after this during the hospitalization. Total Time Total Time Spent Total Time Spent (In Minutes): 60 Total Time Includes: Examination of the Patient, Discharge Planning, Medication Reconciliation and Communication With Other Providers Discharge Plan Discharge Items Patient Disposition: Personal Jail Reason For Visit: ABDOMINAL PAIN, CHF EXACERBATION Discharge Diagnosis: acute systolic CHF exacerbation NSTEMI Dementia Condition: Good Discharge Goals: Decrease discomfort, Improve disease control and Improve function Activity: Resume your previous activity Non-emergency contact: Primary Care Provider Call non-emergency contact if: you have any medication questions, your symptoms worsen, your pain is not controlled and you have a fever Follow-up/Referrals: Shawn, [Primary Care Provider] - Diet: Carb Consistent or DM2 and Heart Healthy Addtl Provider Instructions: Please take all medications as instructed on discharge list below. It is recommended that you followup with your primary care provider within one week of discharge from the hospital. Please obtain BASIC METABOLIC PANEL (non-fasting) within one week of discharge after starting new medications. These results will need to be reviewed by your primary care physician It was a pleasure taking care of you! Please call if you have any questions or problems. You can reach a [facility] hospitalist on duty at [facility] 24 hours a day by calling [phone]. Take care of yourself. Keysha Chavarria, DO [facility] Hospitalist Prescriptions: New spironolactone 25 mg Tablet 25 mg PO QAM Qty: 30 RF: 1 furosemide 40 mg Tablet 40 mg PO QAM Qty: 30 RF: 1 Continued linezolid [Zyvox] 600 mg tablet 600 mg PO BID RF: 0 tolterodine [Detrol] 1 mg Tablet 1 mg PO HS RF: 0 Levemir FlexTouch U-100 Insuln 100 unit/mL (3 mL) Insulin Pen 25 unit SUBCUT HS RF: 0 carvedilol 12.5 mg Tablet 12.5 mg PO BIDM RF: 0 ranitidine HCl 150 mg Tablet 150 mg PO BID RF: 0 loratadine 10 mg Tablet 10 mg PO QAM RF: 0 insulin aspart U-100 100 unit/mL Solution 9 unit SUBCUT QAM RF: 0 insulin aspart U-100 100 unit/mL Solution 11 unit SUBCUT QPM RF: 0 gabapentin 100 mg Capsule 100 mg PO BID RF: 0 fluticasone propionate 50 mcg/actuation [place],Suspension 2 spray INTRANASAL DAILY RF: 0 albuterol sulfate [Ventolin HFA] 90 mcg/actuation Hfa Aerosol Inhaler 2 puff INHALATION Q4H PRN (Reason: wheezing/cough) RF: 0 acetaminophen [Acetaminophen Extra Strength] 500 mg Tablet 1,000 mg PO Q8H PRN (Reason: Pain) RF: 0 multivitamin Capsule 1 cap PO QAM RF: 0 aspirin [Aspirin Low Dose] 81 mg Tablet,Delayed Release (Dr/Ec) 81 mg PO QAM RF: 0 cholecalciferol (vitamin D3) 400 unit Capsule 400 unit PO QAM RF: 0 melatonin 3 mg Tablet 3 mg PO HS RF: 0 lorazepam 0.5 mg tablet 0.5 mg PO TID PRN (Reason: Anxiety) RF: 0 losartan 25 mg Tablet 25 mg PO QAM RF: 0 nystatin 100,000 unit/gram powder 100,000 unit topical TID RF: 0 duloxetine 30 mg Capsule,Delayed Release(Dr/Ec) 30 mg PO QAM RF: 0 quetiapine 50 mg tablet 50 mg PO QAM RF: 0 quetiapine 50 mg tablet 75 mg PO HS RF: 0 Mónica Cream 1 applic topical Q OTHER DAY RF: 0 Discontinued simvastatin 20 mg Tablet 20 mg PO QAM RF: 0 furosemide [Lasix] 20 mg Tablet 20 mg PO DAILY PRN (Reason: excess fluid) RF: 0 Stand-Alone Forms: [facility] Discharge Orders: Discharge Order (Routine); Ordered 09/15/18 Ordered By: Keysha Chavarria Admission Data Admit Date/Time: 09/10/18 16:38 Attending Provider: Keysha Chavarria Admit Provider: Pedro Chapman Primary Care Provider: [facility], Other Providers: Pedro Chapman ; Leonidas Zabala ; Leonidas Baird Service: Medical Other Interventions: Discharge Summary Assessment (RN) Last Done: 09/15/18 12:51 DC Date/Time DO NOT enter until pt leaves facility: 09/15/18 16:15
== END 2018-09-15 16:15 | disposition home or self-care (01) | DRG 280 ==
LOC: ED 13:28 → SUATTDRO 16:38 → 2E 16:38 → 4E 09-13 08:10
DX: I50.21 Acute systolic (congestive) heart failure; R10.9 Unspecified abdominal pain; M35.3 Polymyalgia rheumatica; N39.0 Urinary tract infection, site not specified; I25.10 Atherosclerotic heart disease of native coronary artery without angina pectoris; Z88.0 Allergy status to penicillin; E11.621 Type 2 diabetes mellitus with foot ulcer; J18.9 Pneumonia, unspecified organism; Z98.51 Tubal ligation status; F03.90 Unspecified dementia, unspecified severity, without behavioral disturbance, psychotic disturbance, mood disturbance, and anxiety; Z79.82 Long term (current) use of aspirin; Z66 Do not resuscitate; Z95.0 Presence of cardiac pacemaker; I25.2 Old myocardial infarction; I21.4 Non-ST elevation (NSTEMI) myocardial infarction; K27.9 Peptic ulcer, site unspecified, unspecified as acute or chronic, without hemorrhage or perforation; Z79.4 Long term (current) use of insulin; Z98.49 Cataract extraction status, unspecified eye; E11.65 Type 2 diabetes mellitus with hyperglycemia; K29.70 Gastritis, unspecified, without bleeding; Z88.1 Allergy status to other antibiotic agents

== ENCOUNTER 2018-10-28 17:27 | Inpatient (IN) ==
--- NOTE | 2018-10-28 18:12 | Emergency Department Note ---
Entered by Gemma Sena acting as a scribe for Mario Moreno MD History of Present Illness General Chief complaint: Head Pain Time Seen by Provider: 10/28/18 17:34 Source: family (daughter) History of Present Illness Onset (ago): week(s) 1 Location: head (right-sided headache) Severity: severe Pain Consistency: + other (worsening) Associated symptoms: + other (hand swelling, right-sided jaw pain, abdominal b loating, neck stiffness, and lethargy); no fever/chills The patient is a 78 year old F who presents to the Emergency Room with complaints of a worsening right-sided headache that started 1 week ago. The HPI was provided by the patients daughter. She states that the patients headache is severe. She notes that the patient lives at [facility]. She states that she b rought the patient to the ED 2 days ago. She adds that the patient was diagnosed with a UTI, was given antibiotics and was sent back to [facility]. She notes that the patient is currently experiencing hand swelling, right-sided jaw pain, abdominal bloating, and lethargy. She adds that the patient cannot move her neck. She denies that the patient is currently experiencing fevers. She also denies that the patient recently experienced any falls. She notes that the patient has not been eating for the past week. A review of the patients records show that the patient was in the ED on October 26 for headaches. The records state that the patient was discharged back to [facility] home with a UTI. The records note that the patient has a history of ischemic cardiomyopathy, dementia, pacemaker, ICD placement, HTN, PVD, and GERD. The HPI is limited due to the patients condition of dementia. Home Medications Home Medications Medication Instructions Recorded Confirmed Type Levemir FlexTouch U-100 Insuln 25 unit SUBCUT HS 12/22/17 10/28/18 History acetaminophen [Acetaminophen Extra 1,000 mg PO Q8H PRN 12/22/17 10/28/18 History Strength] albuterol sulfate [Ventolin HFA] 2 puff INHALATION Q4H PRN 12/22/17 10/28/18 History aspirin [Aspirin Low Dose] 81 mg PO QAM 12/22/17 10/28/18 History carvedilol 12.5 mg PO BIDM 12/22/17 10/28/18 History cholecalciferol (vitamin D3) 400 unit PO QAM 12/22/17 10/28/18 History fluticasone propionate 2 spray INTRANASAL QAM 12/22/17 10/28/18 History gabapentin 100 mg PO BID 12/22/17 10/28/18 History loratadine 10 mg PO QAM 12/22/17 10/28/18 History ranitidine HCl 150 mg PO BID 12/22/17 10/28/18 History tolterodine [Detrol] 1 mg PO HS 12/22/17 10/28/18 History duloxetine 30 mg PO QAM 09/10/18 10/28/18 History lorazepam 0.5 mg PO TID PRN 09/10/18 10/28/18 History losartan 25 mg PO QAM 09/10/18 10/28/18 History melatonin 3 mg PO HS 09/10/18 10/28/18 History nystatin 1 applic TOPICAL DIRECTED PRN 09/10/18 10/28/18 History quetiapine 50 mg PO QAM 09/10/18 10/28/18 History quetiapine 75 mg PO HS 09/10/18 10/28/18 History furosemide 40 mg PO QAM #30 tab 09/15/18 10/28/18 Rx spironolactone 25 mg PO QAM #30 tab 09/15/18 10/28/18 Rx ciprofloxacin HCl [Cipro] 500 mg PO Q12H #14 tab 10/26/18 10/28/18 Rx insulin aspart U-100 [Novolog 9 unit SUBCUT QAM 10/26/18 10/28/18 History Flexpen U-100 Insulin] mv,Ca,min-folic acid-vit K1 1 tab PO QAM 10/26/18 10/28/18 History [One-A-Day Women's 50 Plus] [id number] 4 drp OTIC (EAR) DIRECTED 10/26/18 10/28/18 History insulin aspart U-100 [Novolog 11 unit SUBCUT QDD 10/28/18 10/28/18 History Flexpen U-100 Insulin] Allergies Allergy/AdvReac Type Severity Reaction Status Date / Time Bactrim Allergy Unknown . Verified 09/05/17 16:36 lisinopril Allergy Unknown Unknown Verified 10/28/18 18:33 Penicillins Allergy Unknown . Verified 10/28/18 18:33 sulfamethoxazole Allergy Unknown . Verified 10/28/18 18:33 trimethoprim Allergy Unknown . Verified 10/28/18 18:33 atorvastatin AdvReac Intermediate MUSCLE PAIN Verified 10/28/18 18:33 capsaicin AdvReac Intermediate N/V Verified 10/28/18 18:33 diclofenac AdvReac Intermediate N/V Verified 10/28/18 18:33 Diclopak AdvReac Intermediate N/V Verified 09/05/17 13:27 rosuvastatin AdvReac Intermediate MUSCLE PAIN Verified 10/28/18 18:33 fenofibrate AdvReac Mild SORE MOUTH Verified 10/26/18 16:40 Past Med/Surg History Medical History HTN (hypertension) (Chronic) GERD (gastroesophageal reflux disease) (Chronic) PVD (peripheral vascular disease) (Chronic) ICD (implantable cardioverter-defibrillator) in place (Chronic) Pacemaker (Chronic) Osteomyelitis (Acute) Diabetic foot ulcer associated with type 2 diabetes mellitus (Acute) Dementia (Chronic 11/01/12) Coronary artery disease (Chronic) "s/p TN" Systolic CHF, chronic (Chronic) "ischemic cardiomyopathy" History of bradycardia (Chronic) Ambulatory dysfunction (Chronic) Diabetes mellitus, type 2 (Chronic) Statin intolerance (Chronic) RADHA inhibitor intolerance (Chronic) PMR (polymyalgia rheumatica) (Chronic) Carotid arterial disease (Chronic) Chest pain Outbursts of anger (Acute) Surgical History Status post coronary artery bypass grafting (Chronic) Status post cardiac pacemaker procedure (Chronic) Status post cataract extraction (Chronic) Status post tubal ligation (Chronic) Family History Other No significant family history Social History Preferred Language: German Communication Ability: Effective Marketing Strategist Required: No Beliefs That Will Affect Care: Sabianism Sabianism Beliefs: Notify Pastor Ben Sharif if needed marital status: / Current Living Situation: [facility] current occupational status: retired Other Information That Helps Us Care for You: No Feels Safe at Home: Yes Smoking Status: Never smoker Hx Alcohol Use: No Hx Substance Use: No Review of Systems See HPI for pertinent positives & negatives. The ROS is limited due to the patients condition of dementia. Physical Exam Vital Signs Vital Signs - 24 hr 10/28/18 17:31 10/28/18 17:32 10/28/18 17:35 Temperature 37.4 C Temperature Source Oral Sepsis Recent Fever Within 48 Hours No Sepsis New/Unexplained Change in Mental Status No Sepsis Action Taken by Nursing No Action Required Pulse Rate 94 H 90 93 H Pulse Rate [Apical] Pulse Rate from SpO2 Sensor 94 H 94 H Pulse Rhythm Respiratory Rate 32 H 18 34 H Respiratory Effort / Characteristics Non-Labored Respiratory Depth Normal Respiratory Pattern Regular Blood Pressure 104/65 104/65 Blood Pressure [Right Arm] Blood Pressure Mean 78 78 Blood Pressure Mean [Right Arm] Pulse Oximetry 96 96 95 Oxygen Delivery Method Room Air 10/28/18 18:00 10/28/18 18:17 10/28/18 18:30 Temperature Temperature Source Sepsis Recent Fever Within 48 Hours Sepsis New/Unexplained Change in Mental Status Sepsis Action Taken by Nursing Pulse Rate 90 94 H 89 Pulse Rate [Apical] Pulse Rate from SpO2 Sensor 95 H Pulse Rhythm Respiratory Rate 32 H 36 H 24 Respiratory Effort / Characteristics Respiratory Depth Respiratory Pattern Blood Pressure 126/67 123/68 Blood Pressure [Right Arm] Blood Pressure Mean 86 86 Blood Pressure Mean [Right Arm] Pulse Oximetry 95 Oxygen Delivery Method 10/28/18 18:31 10/28/18 19:00 10/28/18 19:01 Temperature Temperature Source Sepsis Recent Fever Within 48 Hours Sepsis New/Unexplained Change in Mental Status Sepsis Action Taken by Nursing Pulse Rate 86 84 85 Pulse Rate [Apical] Pulse Rate from SpO2 Sensor Pulse Rhythm Respiratory Rate 27 H 29 H 27 H Respiratory Effort / Characteristics Respiratory Depth Respiratory Pattern Blood Pressure 97/64 L Blood Pressure [Right Arm] Blood Pressure Mean 75 Blood Pressure Mean [Right Arm] Pulse Oximetry Oxygen Delivery Method 10/28/18 19:14 10/28/18 19:15 10/28/18 19:30 Temperature Temperature Source Sepsis Recent Fever Within 48 Hours Sepsis New/Unexplained Change in Mental Status Sepsis Action Taken by Nursing Pulse Rate 89 87 83 Pulse Rate [Apical] Pulse Rate from SpO2 Sensor 89 83 Pulse Rhythm Regular Respiratory Rate 29 H 20 26 H Respiratory Effort / Characteristics Respiratory Depth Respiratory Pattern Blood Pressure 121/54 L 98/60 L Blood Pressure [Right Arm] Blood Pressure Mean 76 72 Blood Pressure Mean [Right Arm] Pulse Oximetry 92 93 90 Oxygen Delivery Method Room Air 10/28/18 19:31 10/28/18 20:00 10/28/18 20:01 Temperature Temperature Source Sepsis Recent Fever Within 48 Hours Sepsis New/Unexplained Change in Mental Status Sepsis Action Taken by Nursing Pulse Rate 82 87 88 Pulse Rate [Apical] Pulse Rate from SpO2 Sensor 83 Pulse Rhythm Respiratory Rate 33 H 28 H 25 H Respiratory Effort / Characteristics Respiratory Depth Respiratory Pattern Blood Pressure 116/58 L Blood Pressure [Right Arm] Blood Pressure Mean 77 Blood Pressure Mean [Right Arm] Pulse Oximetry 93 Oxygen Delivery Method 10/28/18 20:30 10/28/18 20:31 10/28/18 20:33 Temperature Temperature Source Sepsis Recent Fever Within 48 Hours Sepsis New/Unexplained Change in Mental Status Sepsis Action Taken by Nursing Pulse Rate 83 82 Pulse Rate [Apical] 85 Pulse Rate from SpO2 Sensor Pulse Rhythm Respiratory Rate 31 H 28 H 22 Respiratory Effort / Characteristics Respiratory Depth Respiratory Pattern Blood Pressure 112/65 Blood Pressure [Right Arm] 112/65 Blood Pressure Mean 80 Blood Pressure Mean [Right Arm] 80 Pulse Oximetry Oxygen Delivery Method Room Air 10/28/18 21:00 10/28/18 21:30 Temperature Temperature Source Sepsis Recent Fever Within 48 Hours Sepsis New/Unexplained Change in Mental Status Sepsis Action Taken by Nursing Pulse Rate 89 81 Pulse Rate [Apical] Pulse Rate from SpO2 Sensor Pulse Rhythm Respiratory Rate 24 31 H Respiratory Effort / Characteristics Respiratory Depth Respiratory Pattern Blood Pressure Blood Pressure [Right Arm] Blood Pressure Mean Blood Pressure Mean [Right Arm] Pulse Oximetry Oxygen Delivery Method GENERAL: Pleasantly confused with labile affect, spontaneously calling her daughter a "dumb b" HENT: Normocephalic, atraumatic. TM's normal. Oropharynx with dry mucous membranes and otherwise unremarkable. EYES: PERRL. EOMI. Normal conjunctiva. Sclera non-icteric. EOMI. No nystamgus. PEARRL. NECK: No JVD or bruit. Limited ROM with rotation to the right. RESPIRATORY: CTAB CARDIAC: RRR. ABDOMEN: Soft, non distended. No tenderness to palpation. No rebound or guarding. No masses. RECTAL: Deferred. MUSCULOSKELETAL: Unremarkable. No edema. No discoloration. Gross motor strength symmetric. Mild tender of trapezius muscles bilaterally. NEURO: Normal sensorium. No sensory or motor deficits noted. Moving all extremities equally. SKIN: No rash or jaundice noted. LYMPH: No adenopathy Course 1739: The patient was evaluated in room B9. A complete history and physical exam was performed. 2012: I reviewed the patient's case with [facility] He will evaluate the patient for further management. 2139: The patient is combative and due to this, the patient's CAT scans were not able to be completed. 2155: I told Dr. Schneider about the patient's situation with the CT scans. He states that the patient will get the CT scans tomorrow. Consultations Consultation #1: I reviewed the patient's case with Dr[facility] Gulshan [facility]. He will evaluate the patient for further management. Time: 20:13 Consultation #2: I told Dr. Schneider about the patient's situation with the CT scans. He states that the patient will get the CT scans tomorrow. Time: 21:56 Administered Medications Aspirin ([facility]rin Ectab) [facility] [place] Stop: 11/28/18 08:59 Last Admin: 10/29/18 09:19 Dose: 81 mg Documented by: [id number] Carvedilol (Coreg) 12.5 mg PO BIDM [facility] Stop: 11/28/18 07:59 Last Admin: 10/29/18 09:17 Dose: 12.5 mg Documented by: [id number] Duloxetine HCl (Cymbalta) [facility] [place] Stop: 11/28/18 08:59 Last Admin: 10/29/18 09:16 Dose: 30 mg Documented by: [id number] Fluticasone Propionate (Flonase) 2 sprays NA QAM [facility] Stop: 11/28/18 08:59 Last Admin: 10/29/18 09:22 Dose: 2 sprays Documented by: [id number] Furosemide (Lasix) 40 mg PO QAM [facility] Stop: 11/28/18 08:59 Last Admin: 10/29/18 09:18 Dose: 40 mg Documented by: [id number] Gabapentin (Neurontin) 100 mg PO BID [facility] Stop: 11/28/18 08:59 Last Admin: 10/29/18 09:20 Dose: 100 mg Documented by: [id number] Heparin Sodium (Porcine) (Heparin Sodium (Porcine)) 5,000 units SQ Q8 [facility] Stop: 11/28/18 05:59 Last Admin: 10/29/18 06:29 Dose: 5,000 units Documented by: [id number] Cosigned by: [id number] Dexamethasone 2 mg/ Syringe 0.5 mls @ 1 mls/min IV Q6H [facility] Stop: 11/28/18 01:59 Last Admin: 10/29/18 09:15 Dose: 1 mls/min Documented by: [id number] Admin: 10/29/18 02:05 Dose: 1 mls/min Documented by: [id number] Sodium Chloride (Nss 1000ml) 1,000 mls @ 80 mls/hr IV .[id number] [facility] Stop: 11/28/18 00:22 Last Admin: 10/29/18 01:29 Dose: 80 mls/hr Documented by: [id number] Ceftriaxone Sodium 1,000 mg/ (Dextrose) 50 mls @ 100 mls/hr IV Q24H [facility] Stop: 11/08/18 01:59 Last Infusion: 10/29/18 03:17 Dose: 0 mls/hr Documented by: [id number] Admin: 10/29/18 02:05 Dose: 100 mls/hr Documented by: [id number] Loratadine (Claritin) [facility] [place] Stop: 11/28/18 08:59 Last Admin: 10/29/18 09:18 Dose: 10 mg Documented by: [id number] Losartan Potassium (Cozaar) 25 mg PO QAM [facility] Stop: 11/28/18 08:59 Last Admin: 10/29/18 09:19 Dose: 25 mg Documented by: [id number] Multivitamins/Minerals (Multivitamin W/ Minerals Tab) 1 tab PO QAM [facility] Stop: 11/28/18 08:59 Last Admin: 10/29/18 09:18 Dose: 1 tab Documented by: [id number] Neomycin/Polymyxin/Hydrocortisone (Cortisporin) 4 drops OT TID@0900,1200,1700 [facility] Stop: 11/04/18 08:59 Last Admin: 10/29/18 09:23 Dose: 4 drops Documented by: [id number] Quetiapine Fumarate (Seroquel) 50 mg PO QAM [facility] Stop: 11/28/18 08:59 Last Admin: 10/29/18 09:16 Dose: 50 mg Documented by: [id number] Ranitidine HCl (Zantac) 150 mg PO BID [facility] Stop: 11/28/18 08:59 Last Admin: 10/29/18 09:17 Dose: 150 mg Documented by: [id number] Spironolactone (Aldactone) 25 mg PO QAM [facility] Stop: 11/28/18 08:59 Last Admin: 10/29/18 09:19 Dose: 25 mg Documented by: [id number] Vitamin D (Vitamin D3) 400 units PO QAM [facility] Stop: 11/28/18 08:59 Last Admin: 10/29/18 09:17 Dose: 400 units Documented by: [id number] Discontinued Medications Dexamethasone (Decadron) 10 mg IV NOW STA Stop: 10/28/18 19:11 Last Admin: 10/28/18 20:05 Dose: 10 mg Documented by: [id number] Acetaminophen (Ofirmev) 1,000 mg in 100 mls @ 400 mls/hr IV NOW STA Stop: 10/28/18 18:42 Last Infusion: 10/28/18 19:01 Dose: 0 mls/hr Documented by: [id number] Admin: 10/28/18 18:41 Dose: 400 mls/hr Documented by: [id number] Sodium Chloride (Nss) 250 mls @ 999 mls/hr IV .Q16M ONE Stop: 10/28/18 19:27 Last Infusion: 10/28/18 20:27 Dose: 0 mls/hr Documented by: [id number] Admin: 10/28/18 20:05 Dose: 999 mls/hr Documented by: [id number] Lorazepam (Ativan) 0.5 mg in 1 mls @ 1 mls/min IV NOW STA Stop: 10/28/18 20:47 Last Admin: 10/28/18 21:01 Dose: 1 mls/min Documented by: [id number] Insulin Human Regular 8 units/ (Syringe) 8 mls @ 30 mls/min IV NOW ONE; Protocol Stop: 10/29/18 04:31 Last Admin: 10/29/18 04:34 Dose: 30 mls/min Documented by: [id number] Cosigned by: [id number] Insulin Aspart (Novolog Flexpen) 8 units SC NOW STA Stop: 10/28/18 20:15 Last Admin: 10/28/18 20:32 Dose: Not Given Documented by: [id number] Insulin Aspart (Novolog Per Unit) Confirm Administered Dose 1 units .ROUTE .STK- MED ONE Stop: 10/28/18 20:31 Last Admin: 10/28/18 20:32 Dose: 8 units Documented by: [id number] Cosigned by: [id number] Insulin Aspart (Novolog Flexpen) 0 units SQ TODAY@0100,0400 L[facility]; Protocol Stop: 10/29/18 04:01 Last Admin: 10/29/18 04:34 Dose: 14 units Documented by: [id number] Cosigned by: [id number] Admin: 10/29/18 01:59 Dose: 13 units Documented by: [id number] Cosigned by: [id number] Insulin Detemir (Levemir Flextouch) 50 units SQ NOW STA; Protocol Stop: 10/29/18 00:50 Last Admin: 10/29/18 02:04 Dose: 50 units Documented by: [id number] Cosigned by: [id number] Quetiapine Fumarate (Seroquel) 50 mg PO NOW STA Stop: 10/28/18 20:47 Last Admin: 10/29/18 00:47 Dose: Not Given Documented by: [id number] Medical Decision Making Differential Diagnosis Differential diagnosis includes: metabolic, infection, hypo/hyperglycemia, electrolyte abnormalities, cardiac sources, intracerebral event, toxicologic, neurologic, as well as others were entertained. Medical Records Attestation: I reviewed the patient's medical records. Home Medications Current Medication List: was personally reviewed by me Laboratory Data Attestation: I reviewed the patient's lab results. Result diagrams: 10/29/18 05:25 10/29/18 05:25 Lab Results 10/28/18 10/28/18 10/28/18 Range/Units 18:18 18:18 18:18 WBC 12.31 H (4.8-10.8) K/uL RBC 3.23 L (4.2-5.4) M/uL Hgb 9.9 L (12.0-16.0) g/dL Hct 29.1 L (37-47) % MCV 90.1 (80-100) fL MCH 30.7 (25-34) pg MCHC 34.0 (32-36) g/dL RDW Std Deviation 53.4 H (36.4-46.3) fL RDW Coeff of Fercho 16.4 H (11.5-14.5) % Plt Count 435 H (130-400) K/uL MPV 10.3 (7.4-10.4) fL Immature Gran % (Auto) 0.2 % Neut % (Auto) 76.6 % Lymph % (Auto) 11.8 % White % (Auto) 9.7 % Eos % (Auto) 1.5 % Baso % (Auto) 0.2 % Immature Gran # (Auto) 0.03 H (0.00-0.02) K/uL Neut # (Auto) 9.42 H (1.4-6.5) K/uL Lymph # (Auto) 1.45 (1.2-3.4) K/uL White # (Auto) 1.20 H (0.11-0.59) K/uL Eos # (Auto) 0.19 (0-0.5) K/uL Baso # (Auto) 0.02 (0-0.2) K/uL ESR > 90 H (0-21) mm/hr PT INR Sodium Cancelled Potassium Cancelled Chloride Cancelled Carbon Dioxide Cancelled Anion Gap Cancelled BUN Cancelled Creatinine Cancelled Est Cr Clr Drug Dosing Cancelled Est GFR ( Amer) Cancelled Est GFR (Non-Af Amer) Cancelled BUN/Creatinine Ratio Cancelled Glucose Cancelled Calcium Cancelled Phosphorus Cancelled Magnesium Cancelled Total Bilirubin Cancelled Direct Bilirubin Cancelled AST Cancelled ALT Cancelled Alkaline Phosphatase Cancelled Ammonia Total Creatine Kinase (26-192) U/L Troponin I Cancelled C-Reactive Protein Cancelled NT-Pro-B Natriuret Pep Cancelled Total Protein Cancelled Albumin Cancelled Globulin Cancelled Albumin/Globulin Ratio Cancelled Lipase Cancelled Beta-Hydroxybutyric Acd (0.2-2.81) mg/dl TSH Cancelled Lyme Disease IgG Ab Lyme Disease IgM Ab 10/28/18 10/28/18 10/28/18 Range/Units 18:18 18:18 18:18 WBC (4.8-10.8) K/uL RBC (4.2-5.4) M/uL Hgb (12.0-16.0) g/dL Hct (37-47) % MCV (80-100) fL MCH (25-34) pg MCHC (32-36) g/dL RDW Std Deviation (36.4-46.3) fL RDW Coeff of Fercho (11.5-14.5) % Plt Count (130-400) K/uL MPV (7.4-10.4) fL Immature Gran % (Auto) % Neut % (Auto) % Lymph % (Auto) % White % (Auto) % Eos % (Auto) % Baso % (Auto) % Immature Gran # (Auto) (0.00-0.02) K/uL Neut # (Auto) (1.4-6.5) K/uL Lymph # (Auto) (1.2-3.4) K/uL White # (Auto) (0.11-0.59) K/uL Eos # (Auto) (0-0.5) K/uL Baso # (Auto) (0-0.2) K/uL ESR (0-21) mm/hr PT Cancelled INR Cancelled Sodium Potassium Chloride Carbon Dioxide Anion Gap BUN Creatinine Est Cr Clr Drug Dosing Est GFR ( Amer) Est GFR (Non-Af Amer) BUN/Creatinine Ratio Glucose Calcium Phosphorus Magnesium Total Bilirubin Direct Bilirubin AST ALT Alkaline Phosphatase Ammonia Cancelled Total Creatine Kinase (26-192) U/L Troponin I C-Reactive Protein NT-Pro-B Natriuret Pep Total Protein Albumin Globulin Albumin/Globulin Ratio Lipase Beta-Hydroxybutyric Acd (0.2-2.81) mg/dl TSH Lyme Disease IgG Ab Cancelled Lyme Disease IgM Ab Cancelled 10/28/18 10/28/18 10/28/18 Range/Units 19:13 19:13 19:13 WBC (4.8-10.8) K/uL RBC (4.2-5.4) M/uL Hgb (12.0-16.0) g/dL Hct (37-47) % MCV (80-100) fL MCH (25-34) pg MCHC (32-36) g/dL RDW Std Deviation (36.4-46.3) fL RDW Coeff of Fercho (11.5-14.5) % Plt Count (130-400) K/uL MPV (7.4-10.4) fL Immature Gran % (Auto) % Neut % (Auto) % Lymph % (Auto) % White % (Auto) % Eos % (Auto) % Baso % (Auto) % Immature Gran # (Auto) (0.00-0.02) K/uL Neut # (Auto) (1.4-6.5) K/uL Lymph # (Auto) (1.2-3.4) K/uL White # (Auto) (0.11-0.59) K/uL Eos # (Auto) (0-0.5) K/uL Baso # (Auto) (0-0.2) K/uL ESR (0-21) mm/hr PT 10.6 INR 1.0 Sodium Potassium Chloride Carbon Dioxide Anion Gap BUN Creatinine Est Cr Clr Drug Dosing Est GFR ( Amer) Est GFR (Non-Af Amer) BUN/Creatinine Ratio Glucose Calcium Phosphorus Magnesium Total Bilirubin Direct Bilirubin AST ALT Alkaline Phosphatase Ammonia < 10.0 L Total Creatine Kinase (26-192) U/L Troponin I C-Reactive Protein NT-Pro-B Natriuret Pep Total Protein Albumin Globulin Albumin/Globulin Ratio Lipase Beta-Hydroxybutyric Acd (0.2-2.81) mg/dl TSH Lyme Disease IgG Ab Negative Lyme Disease IgM Ab Negative 10/28/18 Range/Units 19:13 WBC (4.8-10.8) K/uL RBC (4.2-5.4) M/uL Hgb (12.0-16.0) g/dL Hct (37-47) % MCV (80-100) fL MCH (25-34) pg MCHC (32-36) g/dL RDW Std Deviation (36.4-46.3) fL RDW Coeff of Fercho (11.5-14.5) % Plt Count (130-400) K/uL MPV (7.4-10.4) fL Immature Gran % (Auto) % Neut % (Auto) % Lymph % (Auto) % White % (Auto) % Eos % (Auto) % Baso % (Auto) % Immature Gran # (Auto) (0.00-0.02) K/uL Neut # (Auto) (1.4-6.5) K/uL Lymph # (Auto) (1.2-3.4) K/uL White # (Auto) (0.11-0.59) K/uL Eos # (Auto) (0-0.5) K/uL Baso # (Auto) (0-0.2) K/uL ESR (0-21) mm/hr PT INR Sodium 129 L Potassium 4.2 Chloride 94 L Carbon Dioxide 28 Anion Gap 7.0 BUN 24 H Creatinine 1.07 Est Cr Clr Drug Dosing 57.7 Est GFR ( Amer) 58.0 Est GFR (Non-Af Amer) 50.0 BUN/Creatinine Ratio 22.7 H Glucose 382 H* Calcium 8.9 Phosphorus 3.2 Magnesium 2.2 Total Bilirubin 0.2 Direct Bilirubin < 0.1 AST 22 ALT 26 Alkaline Phosphatase 155 H Ammonia Total Creatine Kinase 73 (26-192) U/L Troponin I < 0.015 C-Reactive Protein 26.70 H NT-Pro-B Natriuret Pep 2656 H Total Protein 7.4 Albumin 2.5 L Globulin 4.9 H Albumin/Globulin Ratio 0.5 L Lipase 59 L Beta-Hydroxybutyric Acd 4.19 H (0.2-2.81) mg/dl TSH Lyme Disease IgG Ab Lyme Disease IgM Ab Imaging Data Radiologist's Impression: Radiology results as stated below per my review and the radiologist's interpretation:m XR chest 1V portable CLINICAL HISTORY: Atypical chest pain COMPARISON STUDY: 10/26/2018 FINDINGS: The heart is borderline enlarged. There are postsurgical changes of a midline sternotomy. There is a left subclavian pacer/defibrillator present. There is no focal pulmonary consolidation. There are low lung volumes. There is mild interstitial prominence. An element of mild pulmonary vascular congestion cannot be excluded[ IMPRESSION: Mild elevation of the interstitium, a finding likely secondary to mild pulmonary vascular congestion. No evidence of focal pulmonary consolidation Electronically signed by: Bryan Sherwood M.D. 10/28/2018 7:51 PM ECG Data Attestation: I personally reviewed and interpreted this ECG as follows: Indication: weakness Rate (beats per minute): 87 Rhythm: other (Atrial-sensed ventricular-paced rhythm) Findings: no acute ischemic change and no ectopy Blood Pressure Blood Pressure Findings: Normal blood pressure Blood Pressure Disposition: did not require urgent referral MDM Narrative The patient is a pleasant 78-year-old woman with a past medical history of dementia, CHF status post ICD and PPM, hypertension, GERD, diabetes, ambulatory dysfunction, carotid artery disease, CAD status post CABG who presents emergency department accompanied by her daughter from [facility] for persistence of complaints of headache and generalized weakness in setting of a recent diagnosis and treatment for external ear infection as well as treatment for UTI with ciprofloxacin when seen in the ED 2 days ago per hpi. Patient's work-up 2 days ago in the emerge department with largely unremarkable with CT scan of her head showing no acute findings. Arrival the patient is pleasantly confused in no acute distress, afebrile stable vital signs. He does exhibit a labile affect where she abruptly turned to her daughter and called her a "dumb B". The daughter at the bedside expresses concerns that "no one has figured out what is going on and if we cannot figure it out here they will need to be sent to [place]". Patient is moving all extremities equally though slowly. She does have difficulty following commands. She appears to not want to turn her head to the right. Mild tenderness of trapezius muscles bilaterally. EKG is paced without evidence of acute ischemia. CXR with possible mild vascular congestion. WBC 12.3, nonspecific. Hbg 9.9 down from 11.1 2 days ago however no report of bloody or black stools. Platelets 435. ESR >90 and CRP 26.7, which raises suspicion for possible flare of patient's PMR. Troponin negative. BNP 2600 improved from 11K last month. Glucose 300s and chemistry without acidosis. BHB only 4.19. Lyme screen negative. CT head and CTA head and neck ordered for further evaluation of the patient's symptoms however she became combative and was spitting and biting at staff and therefore was sent back. Patient did have a negative CT scan of her brain 2 days ago. Otherwise patient symptoms certainly could be related to a PMR flare as well as uncontrolled diabetes. Thus, reasonable to admit the patient for medical optimization as her care home facility would be unlikely to manage this patient in her current medical state with labile outbursts that are more frequent and severe than her baseline. Case was discussed with Dr. Schneider, [facility] hospitalist, who evaluate the patient for admission. Impression & Plan Headache, Elevated erythrocyte sedimentation rate, CRP elevated, Shoulder pain, Hand swelling, Hyperglycemia, Outbursts of anger Discharge Plan Visit Data *Final* Discharge Date/Time: 10/28/18 22:49 Chief Complaint: Head Pain ED Provider: Cross,Mario E Discharge Problem: Headache, Elevated erythrocyte sedimentation rate, CRP elevated, Shoulder pain, Hand swelling, Hyperglycemia, Outbursts of anger Patient Disposition: Admitted As Inpatient Discharge Instructions Interventions: ED Discharge Assessment Last Done: 10/28/18 22:49 The scribe's documentation has been prepared under my direction and personally reviewed by me in its entirety. I confirm that the note above accurately reflects all work, treatment, procedures, and medical decision making performed by me.
[2018-10-28] MEDS ORDERED: ACETAMINOPHEN 1,000 MG/100 ML VIAL IV STA (18:28)
[2018-10-28 18:46] LABS: Basophils # (auto) 0.02 K/uL (0-0.2); Basophils % (auto) 0.2 %; Eosinophils # (auto) 0.19 K/uL (0-0.5); Eosinophils % (auto) 1.5 %; Hematocrit (blood only) 29.1 % (37-47); Hemoglobin 9.9 g/dL (12.0-16.0); Immature Granulocytes # (auto) 0.03 K/uL (0.00-0.02); Immature Granulocytes % (auto) 0.2 %; Lymphocytes # (auto) 1.45 K/uL (1.2-3.4); Lymphocytes % (auto) 11.8 %; Mean Corpuscular Volume 90.1 fL (80-100); Mean Platelet Volume 10.3 fL (7.4-10.4); Monocytes % (auto) 9.7 %; Neutrophils # (auto) 9.42 K/uL (1.4-6.5); Neutrophils % (auto) 76.6 %; Platelet Count 435 K/uL (130-400); RDW Coefficient of Variation 16.4 % (11.5-14.5); RDW Standard Deviation 53.4 fL (36.4-46.3); Red Blood Count 3.23 M/uL (4.2-5.4); White Blood Count 12.31 K/uL (4.8-10.8)
[2018-10-28] MEDS ORDERED: DEXAMETHASONE SOD INJ 4 MG/ML VIAL IV STA (19:10)
[2018-10-28] MEDS ORDERED: SODIUM CHLORIDE 0.9% 250 ML IV ONE (19:12)
[2018-10-28 19:35] LABS: Prothrombin Time 10.6 Seconds (9.0-12.0)
[2018-10-28 19:51] LABS: Alanine Aminotransferase 26 U/L (12-78); Albumin Globulin Ratio 0.5 (0.9-2); Albumin Level 2.5 gm/dl (3.4-5.0); Alkaline Phosphatase 155 U/L (45-117); Aspartate Aminotransferase 22 U/L (15-37); BUN Creatinine Ratio 22.7 (10-20); Bilirubin Direct < 0.1 mg/dl (0-0.2); Bilirubin,Total 0.2 mg/dl (0.2-1); Blood Urea Nitrogen 24 mg/dl (7-18); Calcium 8.9 mg/dl (8.5-10.1); Carbon Dioxide 28 mmol/L (21-32); Chloride 94 mmol/L (98-107); Creatine Kinase 73 U/L (26-192); Creatinine Clr Calc Pharmacy 57.7 ml/min; Globulin 4.9 gm/dl (2.5-4.0); Glucose 382 mg/dl (70-99); Magnesium 2.2 mg/dl (1.8-2.4); NT Pro B Type Natriuretic Pept 2656 pg/ml (0-1800); Phosphorus 3.2 mg/dl (2.5-4.9); Potassium 4.2 mmol/L (3.5-5.1); Sodium 129 mmol/L (136-145); Total Protein 7.4 gm/dl (6.4-8.2); Troponin I < 0.015 ng/ml (0-0.045)
--- NOTE | 2018-10-28 19:52 | XRay Report ---
XR chest 1V portable CLINICAL HISTORY: Atypical chest pain COMPARISON STUDY: 10/26/2018 FINDINGS: The heart is borderline enlarged. There are postsurgical changes of a midline sternotomy. T here is a left subclavian pacer/defibrillator present. There is no focal pulmonary consolidation. The re are low lung volumes. There is mild interstitial prominence. An element of mild pulmonary vascular congestion cannot be excluded[ IMPRESSION: Mild elevation of the interstitium, a finding likely secondary to mild pulmonary vascular congestion. No evidence of focal pulmonary consolidation Electronically signed by: Bryan Sherwood M.D. 10/28/2018 7:51 PM
[2018-10-28 20:08] LABS: Beta-Hydroxybutyrate 4.19 mg/dl (0.2-2.81)
[2018-10-28 20:11] LABS: Lyme Ab IgG w/WB Rflx Negative (Negative); Lyme Ab IgM w/WB Rflx Negative (Negative)
[2018-10-28] MEDS ORDERED: INSULIN ASPART 100 UNITS/ML 3 ML PEN SC STA (20:14)
[2018-10-28] MEDS ORDERED: INSULIN ASPART PER UNIT ONE (20:30)
[2018-10-28] MEDS ORDERED: QUETIAPINE FUMARATE 25 MG TABLET PO STA (20:46)
[2018-10-28] MEDS ORDERED: LORazepam 0.5 MG/1 ML VIAL IV STA (20:46)
--- NOTE | 2018-10-28 22:15 | History & Physical Report ---
Date of Service October 28, 2018 Assessment & Plan (1) UTI (urinary tract infection): (2) Dehydration: (3) Leukocytosis: (4) Hyperglycemia: (5) Hand swelling: (6) Shoulder pain: (7) CRP elevated: (8) Elevated erythrocyte sedimentation rate: (9) Headache: (10) HTN (hypertension): (11) GERD (gastroesophageal reflux disease): (12) PVD (peripheral vascular disease): (13) ICD (implantable cardioverter-defibrillator) in place: (14) Systolic CHF, acute: (15) Dementia: (16) Systolic CHF, chronic: (17) Diabetes mellitus, type 2: (18) PMR (polymyalgia rheumatica): (19) Carotid arterial disease: Continue p.o. Cipro, as white count is coming down since 10/26, gentle IV fluids, continue outpatient medications where appropriate, insulin sliding scale, continue Decadron for now, pain control, due to her multiple comorbidities will likely be here more than 2 midnights. ROS-no reliable review of systems Physical Exam Gen-AAO x 0, NAD, Afebrile Head-NCAT, EOMI, PERRLA, Anicteric Sclera, No Posterior Pharyngeal Erythema Neck-Supple, No JVD, No Thyromegaly, No Masses, No LAD, No Bruits Lungs-Clear to Auscultation Bilaterally, No Rales, No Rhonchi, No Wheezing, No Crepitus Chest-No S4, +S1, +S2, No S3, No Murmurs, No Rubs, No Gallops, No Ectopy Abdomen-Soft, Bowel Sounds Present, Non Tender, Non Distended, No Hepatomegaly, No Splenomegaly, No Palpable Masses, No Rebound, No Rigidity, No Guarding Musculoskeletal-Full Range of Motion Bilaterally, No CVAT Extremities-No Cyanosis, No Clubbing, No Edema Nuero-Cranial Nerves II-XII grossly intact, Motor WNL, DTRs WNL, Strength WNL, Non Focal Psych-severe dementia History of Present Illness 78-year-old white female medical history of headaches, severe dementia, congestive heart failure, cardiomyopathy, AICD placement, dementia, non-STEMI, EF 30 to 35% was sent here from [facility] secondary to confusion and fatigue. She was seen here 2 days ago by the emergency room and discharged on Cipro for a UTI. ER doc reports to me that she has had a headache for a week, she is demented and he thinks that she is having a PMR flare. Her sed rate is greater than 90 and her CRP is 25 and very tender left shoulder. Her glucose was 380 she was given Decadron in the ER which I will continue. Past medical historypolymyalgia rheumatica, hypertension, headaches, congestive heart failure, ischemic cardiomyopathy, AICD placement, diabetes type 2, severe dementia, non-STEMI, EF of 30 to 35% Surgical historyCABG, AICD, cataract, tubal ligation Family historyunobtainable Social history-, lives at [facility] dementia unit, no tobacco drugs or alcohol noted Primary Care Provider: [facility] Allergies Allergy/AdvReac Type Severity Reaction Status Date / Time Bactrim Allergy Unknown . Verified 09/05/17 16:36 lisinopril Allergy Unknown Unknown Verified 10/28/18 18:33 Penicillins Allergy Unknown . Verified 10/28/18 18:33 sulfamethoxazole Allergy Unknown . Verified 10/28/18 18:33 trimethoprim Allergy Unknown . Verified 10/28/18 18:33 atorvastatin AdvReac Intermediate MUSCLE PAIN Verified 10/28/18 18:33 capsaicin AdvReac Intermediate N/V Verified 10/28/18 18:33 diclofenac AdvReac Intermediate N/V Verified 10/28/18 18:33 Diclopak AdvReac Intermediate N/V Verified 09/05/17 13:27 rosuvastatin AdvReac Intermediate MUSCLE PAIN Verified 10/28/18 18:33 fenofibrate AdvReac Mild SORE MOUTH Verified 10/26/18 16:40 Home Medications Home Medications Medication Instructions Recorded Confirmed Type Levemir FlexTouch U-100 Insuln 25 unit SUBCUT HS 12/22/17 10/28/18 History acetaminophen [Acetaminophen Extra 1,000 mg PO Q8H PRN 12/22/17 10/28/18 History Strength] albuterol sulfate [Ventolin HFA] 2 puff INHALATION Q4H PRN 12/22/17 10/28/18 History aspirin [Aspirin Low Dose] 81 mg PO QAM 12/22/17 10/28/18 History carvedilol 12.5 mg PO BIDM 12/22/17 10/28/18 History cholecalciferol (vitamin D3) 400 unit PO QAM 12/22/17 10/28/18 History fluticasone propionate 2 spray INTRANASAL QAM 12/22/17 10/28/18 History gabapentin 100 mg PO BID 12/22/17 10/28/18 History loratadine 10 mg PO QAM 12/22/17 10/28/18 History ranitidine HCl 150 mg PO BID 12/22/17 10/28/18 History tolterodine [Detrol] 1 mg PO HS 12/22/17 10/28/18 History duloxetine 30 mg PO QAM 09/10/18 10/28/18 History lorazepam 0.5 mg PO TID PRN 09/10/18 10/28/18 History losartan 25 mg PO QAM 09/10/18 10/28/18 History melatonin 3 mg PO HS 09/10/18 10/28/18 History nystatin 1 applic TOPICAL DIRECTED PRN 09/10/18 10/28/18 History quetiapine 50 mg PO QAM 09/10/18 10/28/18 History quetiapine 75 mg PO HS 09/10/18 10/28/18 History furosemide 40 mg PO QAM #30 tab 09/15/18 10/28/18 Rx spironolactone 25 mg PO QAM #30 tab 09/15/18 10/28/18 Rx ciprofloxacin HCl [Cipro] 500 mg PO Q12H #14 tab 10/26/18 10/28/18 Rx insulin aspart U-100 [Novolog 9 unit SUBCUT QAM 10/26/18 10/28/18 History Flexpen U-100 Insulin] mv,Ca,min-folic acid-vit K1 1 tab PO QAM 10/26/18 10/28/18 History [One-A-Day Women's 50 Plus] [id number] 4 drp OTIC (EAR) DIRECTED 10/26/18 10/28/18 History insulin aspart U-100 [Novolog 11 unit SUBCUT QDD 10/28/18 10/28/18 History Flexpen U-100 Insulin] Past Med/Surg History Medical History HTN (hypertension) (Chronic) GERD (gastroesophageal reflux disease) (Chronic) PVD (peripheral vascular disease) (Chronic) ICD (implantable cardioverter-defibrillator) in place (Chronic) Pacemaker (Chronic) Osteomyelitis (Acute) Diabetic foot ulcer associated with type 2 diabetes mellitus (Acute) Dementia (Chronic 11/01/12) Coronary artery disease (Chronic) "s/p MN" Systolic CHF, chronic (Chronic) "ischemic cardiomyopathy" History of bradycardia (Chronic) Ambulatory dysfunction (Chronic) Diabetes mellitus, type 2 (Chronic) Statin intolerance (Chronic) RADHA inhibitor intolerance (Chronic) PMR (polymyalgia rheumatica) (Chronic) Carotid arterial disease (Chronic) Chest pain Outbursts of anger (Acute) Surgical History Status post coronary artery bypass grafting (Chronic) Status post cardiac pacemaker procedure (Chronic) Status post cataract extraction (Chronic) Status post tubal ligation (Chronic) Social History Preferred Language: [place] Communication Ability: Effective Beliefs That Will Affect Care: None marital status: / Current Living Situation: Personal Care Facility current occupational status: retired Feels Safe at Home: Yes Smoking Status: Unknown if ever smoked Hx Alcohol Use: No Hx Substance Use: No Results & Data Vital Signs (Past 12 Hours) Vital Signs Temp Pulse Pulse Resp BP BP Pulse Ox 10/28/18 21:00 89 24 10/28/18 20:33 85 22 112/65 10/28/18 20:31 82 28 H 10/28/18 20:30 83 31 H 112/65 10/28/18 20:01 88 25 H 10/28/18 20:00 87 28 H 116/58 L 10/28/18 19:31 82 33 H 93 10/28/18 19:30 83 26 H 98/60 L 90 10/28/18 19:15 87 20 93 10/28/18 19:14 89 29 H 121/54 L 92 10/28/18 19:01 85 27 H 10/28/18 19:00 84 29 H 97/64 L 10/28/18 18:31 86 27 H 10/28/18 18:30 89 24 123/68 10/28/18 18:17 94 H 36 H 126/67 95 10/28/18 18:00 90 32 H 10/28/18 17:35 93 H 34 H 95 10/28/18 17:32 37.4 C 90 18 104/65 96 10/28/18 17:31 94 H 32 H 104/65 96 Allergies Bactrim Allergy (Unknown, Verified 09/05/17 16:36) . lisinopril Allergy (Unknown, Verified 10/28/18 18:33) Unknown Penicillins Allergy (Unknown, Verified 10/28/18 18:33) . sulfamethoxazole Allergy (Unknown, Verified 10/28/18 18:33) . trimethoprim Allergy (Unknown, Verified 10/28/18 18:33) . atorvastatin Adverse Reaction (Intermediate, Verified 10/28/18 18:33) MUSCLE PAIN capsaicin Adverse Reaction (Intermediate, Verified 10/28/18 18:33) N/V diclofenac Adverse Reaction (Intermediate, Verified 10/28/18 18:33) N/V Diclopak Adverse Reaction (Intermediate, Verified 09/05/17 13:27) N/V rosuvastatin Adverse Reaction (Intermediate, Verified 10/28/18 18:33) MUSCLE PAIN fenofibrate Adverse Reaction (Mild, Verified 10/26/18 16:40) SORE MOUTH Height/Weight/Isolation Height 4 ft 10 in Weight 146 kg Chemistry 10/28/18 10/28/18 18:18 19:13 Sodium Cancelled 129 L Potassium Cancelled 4.2 Chloride Cancelled 94 L Carbon Dioxide Cancelled 28 Anion Gap Cancelled 7.0 BUN Cancelled 24 H Creatinine Cancelled 1.07 Glucose Cancelled 382 H* Microbiology 10/28/18 18:18 Blood Aerobic Blood Culture - Pending 10/28/18 18:18 Blood Anaerobic Blood Culture - Pending 10/28/18 18:23 Blood Aerobic Blood Culture - Pending 10/28/18 18:23 Blood Anaerobic Blood Culture - Pending (1) Hand swelling Laterality: left Qualified Code(s): M79.89 - Other specified soft tissue disorders (2) Shoulder pain Chronicity: unspecified Laterality: bilateral Qualified Code(s): M25.511 - Pain in right shoulder; M25.512 - Pain in left shoulder (3) Headache Headache chronicity pattern: acute headache Headache type: unspecified Intractability: not intractable Qualified Code(s): R51 - Headache
[2018-10-29] MEDS ORDERED: LORazepam 0.5 MG TAB PO PRN (00:23)
[2018-10-29] MEDS ORDERED: CIPROFLOXACIN 500 MG TAB PO SCH (00:23)
[2018-10-29] MEDS ORDERED: CARBOHYDRATES FOR HYPOGLYCEMIA PO PRN (00:23)
[2018-10-29] MEDS ORDERED: ALBUTEROL HFA 8 GM INHALER INH PRN (00:23)
[2018-10-29] MEDS ORDERED: ONDANSETRON INJ 2 MG/ML 2 ML VIAL IV PRN (00:23)
[2018-10-29] MEDS ORDERED: DEXTROSE 50% 50 ML SYRINGE IV PRN (00:23)
[2018-10-29] MEDS ORDERED: ACETAMINOPHEN 500 MG TAB PO PRN (00:23)
[2018-10-29] MEDS ORDERED: NYSTATIN POWDER 15GM BTL EXT PRN (00:23)
[2018-10-29] MEDS ORDERED: GLUCOSE 40% GEL 15 GM TUBE PO PRN (00:23)
[2018-10-29] MEDS ORDERED: POLYETHYLENE (MIRALAX) 17 GM PACK PO PRN (00:23)
[2018-10-29] MEDS ORDERED: GLUCOSE 10 TABS/TUBE PO PRN (00:23)
[2018-10-29] MEDS ORDERED: GLUCAGON FOR INJ 1 MG VIAL SQ PRN (00:23)
[2018-10-29] MEDS ORDERED: INSULIN DETEMIR FLEXPEN/FLEX TOUCH 100 UNITS/ML 3ML SQ STA (00:49)
[2018-10-29] MEDS ORDERED: PHARMACY GLYCEMIC MGMT CONSULT PRN (00:53)
[2018-10-29] MEDS: SODIUM CHLORIDE 0.9% 1000ML 1,000 ML IV SCH ×2 (01:29→14:14)
[2018-10-29] MEDS: INSULIN ASPART 100 UNITS/ML 3 ML PEN SQ SCH ×5 (01:59→21:20)
[2018-10-29] MEDS: cefTRIAXone SODIUM 1,000 MG in DEXTROSE 5% 50 ML IV SCH (02:05)
[2018-10-29] MEDS: dexAMETHasone 2 MG in SYRINGE 0 ML IV SCH ×3 (02:05→14:15)
[2018-10-29] MEDS ORDERED: INSULIN HUMAN REGULAR PER UNIT 8 UNITS in SYRINGE 7.92 ML IV ONE (04:30)
[2018-10-29 05:42] LABS: Hematocrit (blood only) 29.3 % (37-47); Hemoglobin 9.6 g/dL (12.0-16.0); Mean Corpuscular Hgb Conc 32.8 g/dL (32-36); Mean Corpuscular Volume 89.9 fL (80-100); Mean Platelet Volume 9.9 fL (7.4-10.4); Platelet Count 386 K/uL (130-400); RDW Coefficient of Variation 16.2 % (11.5-14.5); Red Blood Count 3.26 M/uL (4.2-5.4); White Blood Count 6.89 K/uL (4.8-10.8)
[2018-10-29 06:08] LABS: BUN Creatinine Ratio 23.2 (10-20); Calcium 9.1 mg/dl (8.5-10.1); Creatinine Clr Calc Pharmacy 36.1 ml/min; Est GFR (Non-African American) 51.8; Potassium 3.9 mmol/L (3.5-5.1)
[2018-10-29] MEDS: HEPARIN SOD 5,000 UNIT/0.5 ML VIAL SQ SCH ×2 (06:29→14:17)
[2018-10-29] MEDS ORDERED: INSULIN ASPART 100 UNITS/ML 3 ML PEN SQ SCH (07:30)
[2018-10-29] MEDS: QUETIAPINE FUMARATE 25 MG TABLET PO SCH ×2 (09:16→21:19)
[2018-10-29] MEDS: DULOXETINE HCL 30 MG CAP PO SCH (09:16)
[2018-10-29] MEDS: CHOLECALCIFEROL (VITAMIN D) 400 UNITS TABLET PO SCH (09:17)
[2018-10-29] MEDS: CARVEDILOL 12.5 MG TAB PO SCH ×2 (09:17→18:07)
[2018-10-29] MEDS: CEROVITE ADV FORMULA TAB PO SCH (09:18)
[2018-10-29] MEDS: LORATADINE 10 MG TAB PO SCH (09:18)
[2018-10-29] MEDS: FUROSEMIDE 40 MG TAB PO SCH (09:18)
[2018-10-29] MEDS: ASPIRIN 81 MG ECTAB PO SCH (09:19)
[2018-10-29] MEDS: SPIRONOLACTONE 25 MG TAB PO SCH (09:19)
[2018-10-29] MEDS: LOSARTAN POTASSIUM 25 MG TAB PO SCH (09:19)
[2018-10-29] MEDS: GABAPENTIN 100 MG CAP PO SCH ×2 (09:20→21:24)
[2018-10-29] MEDS: FLUTICASONE PROPIONATE NA SPR 16 GM BTL SCH (09:22)
[2018-10-29] MEDS: NEOMYCIN/POLYMYX/HYDROCORT OT SOLN 10 ML BTL OT SCH ×3 (09:23→18:04)
--- NOTE | 2018-10-29 10:23 | Pharmacy Report ---
Glycemic Control Consultation - Date of Service October 29, 2018 - Scope Scope: Glycemic Pharmacist consulted by Dr Schneider on 10/29/18 for glycemic control and to write orders per [facility] inpatient glycemic control protocol - Objective Weight: 66.654 kg Accuchecks BSG (last 24hrs): 10/28/18 10/28/18 10/29/18 18:18 19:13 01:37 Glucose Cancelled 382 H* POC Glucose 333 H* 10/29/18 10/29/18 10/29/18 01:39 04:15 04:16 Glucose POC Glucose 389 H* 368 H* 353 H* 10/29/18 10/29/18 05:25 08:18 Glucose 277 H POC Glucose 152 H Laboratory Data (last 24hrs): 10/28/18 10/28/18 10/29/18 18:18 19:13 05:25 Potassium Cancelled 4.2 3.9 Carbon Dioxide Cancelled 28 26 Anion Gap Cancelled 7.0 7.0 Creatinine Cancelled 1.07 1.04 Est Cr Clr Drug Dosing Cancelled 57.7 36.1 Beta-Hydroxybutyric Acd 4.19 H - Recent Pertinent Medications Outpatient Anti-diabetic Regimen: * Levemir 25 units HS * Novolog 9 units with breakfast, 11 units with dinner * A1c = 8.7 % 09/11/18 The patient is currently receiving: * Basal insulin: Lantus 50 units x 1 dose last night * Correctional Insulin: Novolog Correction per scale ACHS Goal Range: Low 110 mg/dL - High 140 mg/dL Correction Factor: 15 mg/dL/unit * Prandial insulin: Per carb ratio of 1 unit per 5 grams CHO consumed Risk Factors for Insulin Resistance: * Steroids: Dexamethasone 10mg IV x1 in ER, then 2mg IV Q6H * Infection: IV Rocephin * Diet: Type 2 DM - Assessment & Plan Assessment & Plan: ASSESSMENT: * 78-year-old female, PMH of headaches, severe dementia, CHF, cardiomyopathy, AICD placement, non-STEMI, EF 30 to 35% was sent here from [facility] d/t confusion and fatigue. Pt here 2 days ago in ER and discharged on Cipro for a UTI. Pt feels she is having a PMR flare. Her sed rate is greater than 90 and her CRP is 25 and very tender left shoulder. * IV Rocephin for UTI (QT prolongation on Cipro). * Patient received dexamethasone 10mg IV in ER then 2mg IV Q6H, pt with steroid induced hyperglycemia. Double dose of home Levemir given last night, will continue based on a scale HS and tighten CF and CR further. Blood sugar at goal this AM at 152mg/dl. PLAN FOR INPATIENT GLYCEMIC CONTROL: * Basal insulin * Lantus 50 units SQ x 1 last night then HS * BSG < 110mg/dl - 25 units * BSG 110-180mg/dl - 35 units * BSG > 180mg/dl - 50 units * Bolus insulin * NovoLog per scale ACHS or Q6hrs while NPO * Goal Range: Low 110 mg/dL - High 140 mg/dL * TIGHTEN: Correction Factor: 10 mg/dL/unit * TIGHTEN: Nutritional / Prandial insulin per carb ratio of 1 unit per 3 grams CHO consumed * Please note that the plan above was derived based on current level of insulin resistance and hospital stress. These recommendations are appropriate for inpatient admission only. Plan of care upon discharge will need to be reassessed to avoid potential outpatient hypo/hyperglycemia. Thank you.
--- NOTE | 2018-10-29 17:59 | Hospitalist Progress Note ---
Date of Service October 29, 2018 Assessment & Plan (1) PMR (polymyalgia rheumatica): Suspect headache, neck stiffness, neck pain, shoulder pain while secondary to a recent PMR flare. Review of systems is unobtainable from patient however, she appears to be more comfortable today. We will switch dexamethasone IV to prednisone 20 mg p.o. daily and monitor for response. Patient is not on chronic prednisone at baseline per records. (2) Dementia: Chronic dementia with frequent bursts of anger. Lives in the dementia unit of [facility]. (3) UTI (urinary tract infection): Katie glabrata grew out of recent urine culture from ER visit prior to this admission. Would suspect this would be amenable to caspofungin, however, will consult infectious disease for their thoughts prior to starting in this 78-year-old female with multiple comorbidities. Continue Rocephin for now. Nam cathether is not in place. Scheduled bladder scans to monitor. (4) Hyperglycemia: Type 2 diabetes with hyperglycemia controlled overnight with insulin. Continue frequent sugar checks and expect to use more insulin as she is on high- dose steroids at the moment. (5) Diabetes mellitus, type 2: Continue Levemir and NovoLog. Appreciate glycemic pharmacy recommendations. (6) DVT prophylaxis: Lovenox Full code Disposition-pending clinical improvement with plans to return to [facility] dementia unit once improved. Keysha Chavarria DO [facility] Hospitalist Subjective 78-year-old dementia female presented from [facility] with a right- sided headache that started 1 week ago. The history was performed added by the daughter as the patient is disoriented at baseline. This patient was admitted she was recently seen in the ER 2 days ago and diagnosed with an UTI, sent back to [facility]. The daughter reports hand swelling, right-sided jaw pain abdominal pain and lethargy and some neck restriction is reported. Low appetite was also noted. She was admitted to the hospitalist service and placed on Rocephin. Hyperglycemia was corrected overnight with insulin. She was started on dexamethasone for presumed PMR flare in the setting of clinical symptoms and an elevated sed rate and CRP. She appears more comfortable today however, is very fatigued and and able to give history. Review of systems is unobtainable secondary to dementia. Review of Systems Review of Systems: Unobtainable due to mental health condition (dementia) Physical Exam Physical Exam: CONSTITUTIONAL: obese, vitals as above, generally well- appearing but lying supine and somewhat fatigued. Disoriented. EYES: pupils are equal and round bilaterally, normal conjunctivae, no scleral icterus ENT: MMM RESPIRATORY: clear to auscultation bilaterally, no crackles, rales or wheezes, normal respiratory effort, limited exam as she is unable to follow instructions. CARDIOVASCULAR: regular rate and rhythm, S1 and 2 heard without murmurs, gallops or rubs, no JVD, no peripheral edema GASTROINTESTINAL: normal bowel sounds, soft, nontender, nondistended MUSCULOSKELETAL: strength 5/5 throughout, head is normocephalic and atraumatic SKIN: warm and dry NEUROLOGIC: fatigued, unable to assess fully 2/2 mental status. Disoriented. Results & Data Vital Signs (Past 12 Hours) Vital Signs Temp Pulse Resp BP Pulse Ox 10/29/18 07:01 37.1 C 88 20 120/57 L 96 Laboratory Results Short CBC 10/28/18 10/29/18 Range/Units 18:18 05:25 WBC 12.31 H 6.89 (4.8-10.8) K/uL Hgb 9.9 L 9.6 L (12.0-16.0) g/dL Hct 29.1 L 29.3 L (37-47) % Plt Count 435 H 386 (130-400) K/uL BMP 10/28/18 10/28/18 10/29/18 18:18 19:13 05:25 Sodium Cancelled 129 L 133 L Potassium Cancelled 4.2 3.9 Chloride Cancelled 94 L 100 Carbon Dioxide Cancelled 28 26 BUN Cancelled 24 H 24 H Creatinine Cancelled 1.07 1.04 Glucose Cancelled 382 H* 277 H Calcium Cancelled 8.9 9.1 Cardiac Enzymes 10/28/18 10/28/18 Range/Units 18:18 19:13 Total Creatine Kinase 73 (26-192) U/L Troponin I Cancelled < 0.015 Liver Function 10/28/18 10/28/18 Range/Units 18:18 19:13 Total Bilirubin Cancelled 0.2 Direct Bilirubin Cancelled < 0.1 AST Cancelled 22 ALT Cancelled 26 Alkaline Phosphatase Cancelled 155 H Albumin Cancelled 2.5 L Medications Administered Current Inpatient Medications Albuterol (Ventolin Hfa) 2 puffs INH Q4H PRN PRN Reason: Wheezing/Cough Stop: 11/28/18 00:22 Aspirin (Ecotrin Ectab) 81 mg PO [facility] Stop: 11/28/18 08:59 Last Admin: 10/29/18 09:19 Dose: 81 mg Documented by: Carvedilol (Coreg) 12.5 mg PO BIDM [facility] Stop: 11/28/18 07:59 Last Admin: 10/29/18 09:17 Dose: 12.5 mg Documented by: Dextrose (Dextrose 50%) 25 - 50 ml IV UD PRN; Protocol PRN Reason: Hypoglycemia Protocol Stop: 11/28/18 00:22 Duloxetine HCl (Cymbalta) 30 mg PO [facility] Stop: 11/28/18 08:59 Last Admin: 10/29/18 09:16 Dose: 30 mg Documented by: Fluticasone Propionate (Flonase) 2 sprays NA [facility] Stop: 11/28/18 08:59 Last Admin: 10/29/18 09:22 Dose: 2 sprays Documented by: Furosemide (Lasix) 40 mg PO [facility] Stop: 11/28/18 08:59 Last Admin: 10/29/18 09:18 Dose: 40 mg Documented by: Gabapentin (Neurontin) 100 mg PO BID [facility] Stop: 11/28/18 08:59 Last Admin: 10/29/18 09:20 Dose: 100 mg Documented by: Glucagon (Glucagen) 1 mg SQ UD PRN; Protocol PRN Reason: Hypoglycemia Protocol Stop: 11/28/18 00:22 Glucose (Glucose 40%) 15 - 30 gm PO UD PRN; Protocol PRN Reason: Hypoglycemia Protocol Stop: 11/28/18 00:22 Glucose (Dex4 Glucose) 4 - 8 tabs PO UD PRN; Protocol PRN Reason: Hypoglycemia Protocol Stop: 11/28/18 00:22 Heparin Sodium (Porcine) (Heparin Sodium (Porcine)) 5,000 units SQ Q8 [facility] Stop: 11/28/18 05:59 Last Admin: 10/29/18 14:17 Dose: 5,000 units Documented by: Dexamethasone 2 mg/ Syringe 0.5 mls @ 1 mls/min IV Q6H [facility] Stop: 11/28/18 01:59 Last Admin: 10/29/18 14:15 Dose: 1 mls/min Documented by: Sodium Chloride (Nss 1000ml) 1,000 mls @ 80 mls/hr IV .[id number] [facility] Stop: 11/28/18 00:22 Last Admin: 10/29/18 14:14 Dose: 80 mls/hr Documented by: Ceftriaxone Sodium 1,000 mg/ (Dextrose) 50 mls @ 100 mls/hr IV Q24H [facility] Stop: 11/08/18 01:59 Last Infusion: 10/29/18 03:17 Dose: Infused Documented by: Insulin Aspart (Novolog Flexpen) 0 units SQ [facility]; Protocol Stop: 11/28/18 07:29 Last Admin: 10/29/18 12:37 Dose: 3 units Documented by: Insulin Detemir (Levemir Flextouch) 0 units SC HS [facility]; Protocol Stop: 11/28/18 20:59 Loratadine (Claritin) 10 mg PO QAM [facility] Stop: 11/28/18 08:59 Last Admin: 10/29/18 09:18 Dose: 10 mg Documented by: Lorazepam (Ativan) 0.5 mg PO TID PRN PRN Reason: Anxiety Stop: 11/28/18 00:22 Losartan Potassium (Cozaar) 25 mg PO [facility] Stop: 11/28/18 08:59 Last Admin: 10/29/18 09:19 Dose: 25 mg Documented by: Miscellaneous (Carbohydrates For Hypoglycemia) 15 - 30 gm PO UD PRN PRN Reason: Hypoglycemia Treatment Stop: 11/28/18 00:22 Miscellaneous Information (Consult Glycemic Management Pharmacy) 1 ea N/A UD PRN; Protocol PRN Reason: Consult Stop: 11/28/18 00:52 Multivitamins/Minerals (Multivitamin W/ Minerals Tab) 1 tab PO QAM [facility] Stop: 11/28/18 08:59 Last Admin: 10/29/18 09:18 Dose: 1 tab Documented by: Neomycin/Polymyxin/Hydrocortisone (Cortisporin) 4 drops OT TID@0900,1200,1700 [facility] Stop: 11/04/18 08:59 Last Admin: 10/29/18 12:39 Dose: 4 drops Documented by: Nystatin (Mycostatin) 1 appln EXT UD PRN PRN Reason: Skin Care Stop: 11/28/18 00:22 Ondansetron HCl (Zofran) 4 mg IV Q6H PRN PRN Reason: Nausea Stop: 11/28/18 00:22 Polyethylene Glycol (Miralax Powder Packet) 17 gm PO DAILY PRN PRN Reason: Constipation Stop: 11/28/18 00:22 Quetiapine Fumarate (Seroquel) [facility] Stop: 11/28/18 08:59 Last Admin: 10/29/18 09:16 Dose: 50 mg Documented by: Quetiapine Fumarate (Seroquel) 75 mg PO [facility] Stop: 11/28/18 20:59 Ranitidine HCl (Zantac) 150 mg PO BID [facility] Stop: 11/28/18 08:59 Last Admin: 10/29/18 09:17 Dose: 150 mg Documented by: Spironolactone (Aldactone) 25 mg [facility] Stop: 11/28/18 08:59 Last Admin: 10/29/18 09:19 Dose: 25 mg Documented by: Tolterodine Tartrate (Detrol) 1 mg PO [facility] Stop: 11/28/18 20:59 Vitamin D (Vitamin D3) 400 units [facility] Stop: 11/28/18 08:59 Last Admin: 10/29/18 09:17 Dose: 400 units Documented by: (1) Dementia Dementia behavioral disturbance: with behavioral disturbance Dementia type: unspecified type Qualified Code(s): F03.91 - Unspecified dementia with behavioral disturbance
[2018-10-29] MEDS: ENOXAPARIN INJ 40 MG/0.4 ML SYR SQ SCH (21:22)
[2018-10-29] MEDS: INSULIN DETEMIR FLEXPEN/FLEX TOUCH 100 UNITS/ML 3ML SC SCH (21:23)
[2018-10-29] MEDS: TOLTERODINE TARTRATE 1 MG TAB PO SCH (21:26)
[2018-10-29] MEDS ORDERED: OPTIRAY 320 125ml IV PRN (22:28)
--- NOTE | 2018-10-29 22:32 | CT Scan Report ---
CT head/brain wo con CT DOSE: HISTORY: Mental status change SCOTT, confusion TECHNIQUE: Multiaxial CT images of the head were performed without the use of intravenous contrast. A dose lowering technique was utilized adhering to the principles of ALARA. Comparison: None. Findings: The paranasal sinuses and mastoid air cells are clear. The calvarium and skull base are int act. The ventricles and sulci are within normal limits. There is no mass, hematoma, midline shift, or acute infarct. Impression: No acute intracranial abnormality. The above report was generated using voice recognition software. It may contain grammatical, syntax or spelling errors. Electronically signed by: Familia Orellana M.D. 10/29/2018 10:31 PM
--- NOTE | 2018-10-29 22:32 | CT Scan Report ---
CT angio head w con HISTORY: Stroke SCOTT, confusion TECHNIQUE: Multiaxial CT angiography of the head was performed IV contrast: None. Maximum intensit y projection images were also obtained. A dose lowering technique was utilized adhering to the princ iplsalima of STEFFI. COMPARISON: None. FINDINGS: There is no mass, hematoma, midline shift, or acute infarct. Visualized intracranial marketing operations intern al carotid arteries, distal vertebral arteries, and basilar artery are widely patent. There is no sig nificant stenosis, occlusion, or aneurysm seen within the bilateral ACAs, MCAs, or silverware cleaner. IMPRESSION: No significant stenosis, occlusion, or aneurysm within the [place]. The above report was generated using voice recognition software. It may contain grammatical, syntax or spelling errors. Electronically signed by: Familia Orellana M.D. 10/29/2018 10:30 PM
--- NOTE | 2018-10-29 22:35 | CT Scan Report ---
CT angio neck with con HISTORY: Mental status change SCOTT, confusion TECHNIQUE: Multiaxial CT angiography of the neck was performed IV contrast: 100 cc All measurements were calculated based on NASCET criteria. Maximum intensity projection images were also obtained. A dose lowering technique was utilized adhering to the principles of ALARA. COMPARISON STUDY: None. FINDINGS: The aortic arch and proximal great vessels are widely patent. There is no significant sten osis, occlusion, or dissection identified within the bilateral common carotid, internal carotid, or v ertebral arteries. Left common carotid arterial stent which is patent. No significant stenotic change . Moderate atherosclerotic changes to the origin of major vessels from the aortic arch. No major stenos is, however is appreciated. The vertebrobasilar system is unremarkable. IMPRESSION: No significant stenosis, occlusion, or dissection identified within the carotid or vertebral arteries . Left common carotid arterial stent considered patent. The above report was generated using voice recognition software. It may contain grammatical, syntax or spelling errors. Electronically signed by: Familia Orellana M.D. 10/29/2018 10:34 PM
[2018-10-30] MEDS: cefTRIAXone SODIUM 1,000 MG in DEXTROSE 5% 50 ML IV SCH (02:16)
[2018-10-30] MEDS: SODIUM CHLORIDE 0.9% 1000ML 1,000 ML IV SCH ×2 (04:06→15:13)
[2018-10-30] MEDS: ASPIRIN 81 MG ECTAB PO SCH (09:04)
[2018-10-30] MEDS: DULOXETINE HCL 30 MG CAP PO SCH (09:04)
[2018-10-30] MEDS: GABAPENTIN 100 MG CAP PO SCH ×2 (09:04→20:44)
[2018-10-30] MEDS: FUROSEMIDE 40 MG TAB PO SCH (09:05)
[2018-10-30] MEDS: CHOLECALCIFEROL (VITAMIN D) 400 UNITS TABLET PO SCH (09:05)
[2018-10-30] MEDS: LORATADINE 10 MG TAB PO SCH (09:05)
[2018-10-30] MEDS: CEROVITE ADV FORMULA TAB PO SCH (09:05)
[2018-10-30] MEDS: LOSARTAN POTASSIUM 25 MG TAB PO SCH (09:06)
[2018-10-30] MEDS: QUETIAPINE FUMARATE 25 MG TABLET PO SCH ×2 (09:07→20:44)
[2018-10-30] MEDS: SPIRONOLACTONE 25 MG TAB PO SCH (09:07)
[2018-10-30] MEDS: predniSONE 20 MG TAB PO SCH (09:08)
[2018-10-30] MEDS: FLUTICASONE PROPIONATE NA SPR 16 GM BTL SCH (09:08)
[2018-10-30] MEDS: NEOMYCIN/POLYMYX/HYDROCORT OT SOLN 10 ML BTL OT SCH ×3 (09:09→17:24)
[2018-10-30] MEDS: INSULIN ASPART 100 UNITS/ML 3 ML PEN SQ SCH ×4 (09:11→20:56)
[2018-10-30] MEDS: CARVEDILOL 12.5 MG TAB PO SCH ×2 (09:11→17:50)
[2018-10-30 09:41] LABS: Hematocrit (blood only) 28.3 % (37-47); Mean Corpuscular Hgb Conc 31.8 g/dL (32-36); Mean Corpuscular Volume 90.7 fL (80-100); Platelet Count 459 K/uL (130-400); RDW Coefficient of Variation 16.8 % (11.5-14.5); RDW Standard Deviation 56.2 fL (36.4-46.3); Red Blood Count 3.12 M/uL (4.2-5.4); White Blood Count 11.59 K/uL (4.8-10.8)
[2018-10-30 09:47] LABS: BUN Creatinine Ratio 22.1 (10-20); Calcium 8.8 mg/dl (8.5-10.1); Creatinine Clr Calc Pharmacy 34.9 ml/min; Est GFR (African American) 59.3; Est GFR (Non-African American) 51.2; Potassium 3.9 mmol/L (3.5-5.1)
--- NOTE | 2018-10-30 15:32 | Infectious Disease Consult ---
Date of Consultation October 30, 2018 Assessment & Plan (1) Candidal UTI (urinary tract infection): 78-year-old female with polymyalgia rheumatica with positive urine culture for Katie glabrata. Not clear whether she has symptomatic urinary tract infection or not. Would require use of amphotericin B bladder irrigation to treat, would recommend repeating culture to ensure that this is consistent finding. Will follow. History of Present Illness Reason for Consultation: Katie glabrata in urine Attending Physician: Keysha Chavarria DO History of Present Illness 78-year-old female with palpated medical history including severe dementia, polymyalgia rheumatica, systolic heart failure, diabetes mellitus, coronary artery disease, status post pacemaker, recently treated for urinary tract infection with ciprofloxacin, now admitted with several days of worsening confusion with headaches and body aches which she feels are consistent with flare of her known polymyalgia rheumatica. As part of her work-up, urine culture was obtained which is now growing Katie glabrata. Patient reports no significant symptoms of urinary tract infection. No dysuria, no flank pain, no reported fever or chills. Has improved with steroid therapy. Allergies Allergy/AdvReac Type Severity Reaction Status Date / Time Bactrim Allergy Unknown . Verified 09/05/17 16:36 lisinopril Allergy Unknown Unknown Verified 10/28/18 18:33 Penicillins Allergy Unknown . Verified 10/28/18 18:33 sulfamethoxazole Allergy Unknown . Verified 10/28/18 18:33 trimethoprim Allergy Unknown . Verified 10/28/18 18:33 atorvastatin AdvReac Intermediate MUSCLE PAIN Verified 10/28/18 18:33 capsaicin AdvReac Intermediate N/V Verified 10/28/18 18:33 diclofenac AdvReac Intermediate N/V Verified 10/28/18 18:33 Diclopak AdvReac Intermediate N/V Verified 09/05/17 13:27 rosuvastatin AdvReac Intermediate MUSCLE PAIN Verified 10/28/18 18:33 fenofibrate AdvReac Mild SORE MOUTH Verified 10/26/18 16:40 Home Medications Home Medications Medication Instructions Recorded Confirmed Type Levemir FlexTouch U-100 Insuln 25 unit SUBCUT HS 12/22/17 10/28/18 History acetaminophen [Acetaminophen Extra 1,000 mg PO Q8H PRN 12/22/17 10/28/18 History Strength] albuterol sulfate [Ventolin HFA] 2 puff INHALATION Q4H PRN 12/22/17 10/28/18 History aspirin [Aspirin Low Dose] 81 mg PO QAM 12/22/17 10/28/18 History carvedilol 12.5 mg PO BIDM 12/22/17 10/28/18 History cholecalciferol (vitamin D3) 400 unit PO QAM 12/22/17 10/28/18 History fluticasone propionate 2 spray INTRANASAL QAM 12/22/17 10/28/18 History gabapentin 100 mg PO BID 12/22/17 10/28/18 History loratadine 10 mg PO QAM 12/22/17 10/28/18 History ranitidine HCl 150 mg PO BID 12/22/17 10/28/18 History tolterodine [Detrol] 1 mg PO HS 12/22/17 10/28/18 History duloxetine 30 mg PO QAM 09/10/18 10/28/18 History lorazepam 0.5 mg PO TID PRN 09/10/18 10/28/18 History losartan 25 mg PO QAM 09/10/18 10/28/18 History melatonin 3 mg PO HS 09/10/18 10/28/18 History nystatin 1 applic TOPICAL DIRECTED PRN 09/10/18 10/28/18 History quetiapine 50 mg PO QAM 09/10/18 10/28/18 History quetiapine 75 mg PO HS 09/10/18 10/28/18 History furosemide 40 mg PO QAM #30 tab 09/15/18 10/28/18 Rx spironolactone 25 mg PO QAM #30 tab 09/15/18 10/28/18 Rx Novolog Flexpen U-100 Insulin 9 unit SUBCUT QAM 10/26/18 10/28/18 History One-A-Day Women's 50 Plus 1 tab PO QAM 10/26/18 10/28/18 History [id number]-[id number] 4 drp OTIC (EAR) DIRECTED 10/26/18 10/28/18 History Novolog Flexpen U-100 Insulin 11 unit SUBCUT QDD 10/28/18 10/28/18 History prednisone 20 mg PO DAILY 14 Days #14 tab 11/02/18 Rx Patient History Medical History HTN (hypertension) (Chronic) GERD (gastroesophageal reflux disease) (Chronic) PVD (peripheral vascular disease) (Chronic) ICD (implantable cardioverter-defibrillator) in place (Chronic) Pacemaker (Chronic) Osteomyelitis (Acute) Diabetic foot ulcer associated with type 2 diabetes mellitus (Acute) Dementia (Chronic 11/01/12) Coronary artery disease (Chronic) "s/p [place]" Systolic CHF, chronic (Chronic) "ischemic cardiomyopathy" History of bradycardia (Chronic) Ambulatory dysfunction (Chronic) Diabetes mellitus, type 2 (Chronic) Statin intolerance (Chronic) RADHA inhibitor intolerance (Chronic) PMR (polymyalgia rheumatica) (Chronic) Carotid arterial disease (Chronic) Chest pain Outbursts of anger (Acute) Surgical History Status post coronary artery bypass grafting (Chronic) Status post cardiac pacemaker procedure (Chronic) Status post cataract extraction (Chronic) Status post tubal ligation (Chronic) Family History Other No significant family history Social History Preferred Language: Sen[place]e Communication Ability: Effective Injection Molder Required: No Beliefs That Will Affect Care: Pentecostalism Pentecostalism Beliefs: Notify Pastor Ben Sharif if needed marital status: / Current Living Situation: [facility] current occupational status: retired Other Information That Helps Us Care for You: No Feels Safe at Home: Yes Smoking Status: Never smoker Hx Alcohol Use: No Hx Substance Use: No Review of Systems Review of Systems: Unobtainable due to cognitive status Physical Exam Constitutional: WD/WN, vitals as above comfortable; no acute distress Eyes: PERRL, conjunctivae normal, anicteric sclerae ENMT: external ear and nose normal, oropharynx normal Neck: trachea midline, no thyromegaly neck nontender Respiratory: normal respiratory effort, lungs clear to auscultation normal percussion; does not use accessory muscles Cardiovascular: Rate/Rhythm: regular rate and regular rhythm Heart Sounds: normal S1 and normal S2; no gallop, no murmur and no cardiac rub Vessels: normal peripheral pulses; no JVD Gastrointestinal (Abdomen): normal bowel sounds, soft, nontender, no hepatosplenomegaly Musculoskeletal: no cyanosis or clubbing, extremities motor strength 5/5 Spine: thoracic spine normal to inspection and lumbar spine normal to inspection; no cervical spinal tenderness Skin: no rashes, warm and dry normal turgor; no lesions Neurologic: moves all extremities; no focal motor deficits Psychiatric: Orientation: cooperative; + not oriented x 3 Insight: + limited insight Lymphatic: no cervical or axillary lymphadenopathy no inguinal lymphadenopathy Results & Data Vital Signs (Past 12 Hours) Vital Signs Temp Pulse Resp BP Pulse Ox 10/30/18 07:30 36.8 C 65 18 119/57 L 97 Laboratory Results Short CBC 10/30/18 Range/Units 09:05 WBC 11.59 H (4.8-10.8) K/uL Hgb 9.0 L (12.0-16.0) g/dL Hct 28.3 L (37-47) % Plt Count 459 H (130-400) K/uL BMP 10/30/18 09:05 Sodium 139 Potassium 3.9 Chloride 107 Carbon Dioxide 25 BUN 23 H Creatinine 1.05 Glucose 181 H Calcium 8.8 Diagnostic Findings Microbiology 10/28/18 18:18 Blood Aerobic Blood Culture - Preliminary No growth in Aerobic bottle after 24 hours. 10/28/18 18:18 Blood Anaerobic Blood Culture - Preliminary No growth in Anaerobic bottle after 24 hours. 10/28/18 18:23 Blood Aerobic Blood Culture - Preliminary No growth in Aerobic bottle after 24 hours. 10/28/18 18:23 Blood Anaerobic Blood Culture - Preliminary No growth in Anaerobic bottle after 24 hours.
[2018-10-30] MEDS ORDERED: LORazepam 0.5 MG/1 ML VIAL IV SCH (17:30)
[2018-10-30] MEDS: TOLTERODINE TARTRATE 1 MG TAB PO SCH (20:43)
[2018-10-30] MEDS: ENOXAPARIN INJ 40 MG/0.4 ML SYR SQ SCH (20:45)
[2018-10-30] MEDS: INSULIN DETEMIR FLEXPEN/FLEX TOUCH 100 UNITS/ML 3ML SC SCH (20:53)
[2018-10-30 22:57] LABS: Appearance Urine Turbid (Clear); Bacteria Urine Automated Negative (Negative); Bilirubin Urine Negative (Negative); Blood Urine 1+ (Negative); Color Urine Yellow; Epithelial Cell Urine Auto 0-5 /lpf (0-5); Glucose Urine UA Negative (Negative); Ketones Urine Negative (Negative); Leukocyte Esterase Urine 3+ (Negative); Nitrite Urine Negative (Negative); Protein Urine Negative (Negative); Specific Gravity Urine 1.015 (1.000-1.030); Urobilinogen Urine Negative (Negative); WBC Urine Automated >30 /hpf (0-5)
[2018-10-31] MEDS: cefTRIAXone SODIUM 1,000 MG in DEXTROSE 5% 50 ML IV SCH (01:02)
[2018-10-31] MEDS: SODIUM CHLORIDE 0.9% 1000ML 1,000 ML IV SCH ×2 (03:50→16:35)
[2018-10-31] MEDS: SPIRONOLACTONE 25 MG TAB PO SCH (08:35)
[2018-10-31] MEDS: LORATADINE 10 MG TAB PO SCH (08:49)
[2018-10-31] MEDS: NEOMYCIN/POLYMYX/HYDROCORT OT SOLN 10 ML BTL OT SCH ×3 (08:49→16:38)
[2018-10-31] MEDS: CEROVITE ADV FORMULA TAB PO SCH (08:49)
[2018-10-31] MEDS: DULOXETINE HCL 30 MG CAP PO SCH (08:49)
[2018-10-31] MEDS: CARVEDILOL 12.5 MG TAB PO SCH ×2 (08:49→16:37)
[2018-10-31] MEDS: LOSARTAN POTASSIUM 25 MG TAB PO SCH (08:49)
[2018-10-31] MEDS: FLUTICASONE PROPIONATE NA SPR 16 GM BTL SCH (08:49)
[2018-10-31] MEDS: ASPIRIN 81 MG ECTAB PO SCH (08:49)
[2018-10-31] MEDS: FUROSEMIDE 40 MG TAB PO SCH (08:49)
[2018-10-31] MEDS: predniSONE 20 MG TAB PO SCH ×2 (08:50→12:49)
[2018-10-31] MEDS: QUETIAPINE FUMARATE 25 MG TABLET PO SCH ×2 (08:50→20:29)
[2018-10-31] MEDS: CHOLECALCIFEROL (VITAMIN D) 400 UNITS TABLET PO SCH (08:50)
[2018-10-31] MEDS: GABAPENTIN 100 MG CAP PO SCH ×2 (08:50→20:32)
[2018-10-31] MEDS: INSULIN ASPART 100 UNITS/ML 3 ML PEN SQ SCH ×4 (08:51→20:33)
[2018-10-31 09:43] LABS: Hematocrit (blood only) 29.1 % (37-47); Hemoglobin 9.5 g/dL (12.0-16.0); Mean Corpuscular Hgb Conc 32.6 g/dL (32-36); Mean Corpuscular Volume 90.9 fL (80-100); Mean Platelet Volume 9.7 fL (7.4-10.4); Platelet Count 522 K/uL (130-400); RDW Coefficient of Variation 16.7 % (11.5-14.5); RDW Standard Deviation 55.5 fL (36.4-46.3); White Blood Count 12.76 K/uL (4.8-10.8)
[2018-10-31 10:06] LABS: BUN Creatinine Ratio 21.8 (10-20); C Reactive Protein 9.44 mg/dl (0-0.29); Calcium 8.7 mg/dl (8.5-10.1); Creatinine Clr Calc Pharmacy 40.3 ml/min; Est GFR (African American) 70.5; Est GFR (Non-African American) 60.9; Potassium 3.9 mmol/L (3.5-5.1)
--- NOTE | 2018-10-31 12:48 | Pharmacy Report ---
Pharmacy Glycemic Short Note 2 - Date of Service October 31, 2018 - Glycemic Short BSG Results (Last 24 hours): 10/30/18 10/30/18 10/31/18 16:43 20:53 08:29 Glucose POC Glucose 110 H 152 H 144 H 10/31/18 10/31/18 09:21 11:32 Glucose 123 H POC Glucose 125 H OUTPATIENT ANTIDIABETIC REGIMEN: * Levemir 25u HS, Novolog 9u AM & 11u dinner ASSESSMENT: * Pt required 69units of insulin yesterday, 50/50 split between basal/bolus. BSGs well controlled while on PO prednisone 20mg QAM. Will continue with current insulin orders. PLAN FOR INPATIENT GLYCEMIC CONTROL: * Hold outpatient oral diabetes medications * Basal insulin * Lantus SQ scale HS * BSGs <110: 25 units * BSGs 110-180: 35 units * BSGs > 180: 50 units * Bolus insulin * NovoLog per scale ACHS or Q6hrs while NPO * Goal Range: Low 110 mg/dL - High 140 mg/dL * Correction Factor: 12 mg/dL/unit * Nutritional / Prandial insulin per carb ratio of 1 unit per 4 grams CHO consumed
[2018-10-31] MEDS: TOLTERODINE TARTRATE 1 MG TAB PO SCH (20:30)
[2018-10-31] MEDS: ENOXAPARIN INJ 40 MG/0.4 ML SYR SQ SCH (20:35)
[2018-10-31] MEDS: INSULIN DETEMIR FLEXPEN/FLEX TOUCH 100 UNITS/ML 3ML SC SCH (21:43)
[2018-11-01] MEDS: cefTRIAXone SODIUM 1,000 MG in DEXTROSE 5% 50 ML IV SCH (01:58)
[2018-11-01] MEDS: SODIUM CHLORIDE 0.9% 1000ML 1,000 ML IV SCH (05:01)
[2018-11-01 05:57] LABS: Hematocrit (blood only) 29.3 % (37-47); Hemoglobin 9.7 g/dL (12.0-16.0); Mean Corpuscular Hgb Conc 33.1 g/dL (32-36); Mean Corpuscular Volume 91.6 fL (80-100); Mean Platelet Volume 9.4 fL (7.4-10.4); Platelet Count 503 K/uL (130-400); RDW Coefficient of Variation 16.7 % (11.5-14.5); RDW Standard Deviation 55.9 fL (36.4-46.3); White Blood Count 10.83 K/uL (4.8-10.8)
[2018-11-01 06:35] LABS: BUN Creatinine Ratio 21.6 (10-20); C Reactive Protein 14.6 mg/dl (0-0.29); Calcium 8.6 mg/dl (8.5-10.1); Creatinine Clr Calc Pharmacy 52.4 ml/min; Est GFR (African American) 96.9; Est GFR (Non-African American) 83.6; Potassium 3.8 mmol/L (3.5-5.1)
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
--- NOTE | 2018-11-01 06:41 | Hospitalist Progress Note ---
Date of Service October 31, 2018 Assessment & Plan (1) PMR (polymyalgia rheumatica): Suspect headache, neck stiffness, neck pain, shoulder pain while secondary to a recent PMR flare. Good response to steroids. Cont prednisone for another couple of days. (2) Dementia: Chronic dementia with frequent bursts of anger. Lives in the dementia unit of [facility]. At her baseline. (3) UTI (urinary tract infection): Katie glabrata grew out of recent urine culture from ER visit prior to this admission. This would require bladder washings with amphotericin B if confirmed. Per ID recs, repeat culture indicated. With current clinical picture, she is not ill-appearing and appears to be at her baseline mental status and behaviors per daughter. Repeat UCx is pending now. Budding yeast seen initially. Would ensure final urine culture is back prior to discharge. Cont Rocephin while hospitalized. Would not give more than 7 days of antibiotics. (4) Diabetes mellitus, type 2: Continue Levemir and NovoLog. Appreciate glycemic pharmacy recommendations. Controlled. (5) Chronic systolic heart failure: compensated, Lasix daily (6) DVT prophylaxis: Lovenox Full code Disposition-DC to [facility] once C glabrata urine infection is ruled out. Keysha Chavarria DO [facility] Hospitalist Subjective Calm, disoriented, eating dinner. Has refused most of her medications today. Nurse was able to give her the prednisone. Budding yeast in UCx-final culture pending. Review of Systems Review of Systems: Unobtainable due to cognitive status Physical Exam Physical Exam: CONSTITUTIONAL: obese, vitals as above, generally well- appearing but disoriented. Eating dinner. RESPIRATORY: clear to auscultation bilaterall CARDIOVASCULAR: S1/2 heard, no murmurs, no peripheral edema GASTROINTESTINAL: soft, nontender, nondistended MUSCULOSKELETAL: moves all extremities equally NEUROLOGIC: Disoriented. SKIN : warm and dry Results & Data Laboratory Results Short CBC 10/31/18 11/01/18 Range/Units 09:21 05:39 WBC 12.76 H 10.83 H (4.8-10.8) K/uL Hgb 9.5 L 9.7 L (12.0-16.0) g/dL Hct 29.1 L 29.3 L (37-47) % Plt Count 522 H 503 H (130-400) K/uL BMP 10/31/18 11/01/18 09:21 05:39 Sodium 138 139 Potassium 3.9 3.8 Chloride 106 107 Carbon Dioxide 25 24 BUN 20 H 15 Creatinine 0.91 0.70 Glucose 123 H 120 H Calcium 8.7 8.6 (1) Dementia Dementia behavioral disturbance: with behavioral disturbance Dementia type: unspecified type Qualified Code(s): F03.91 - Unspecified dementia with behavioral disturbance
[2018-11-01] MEDS: SPIRONOLACTONE 25 MG TAB PO SCH (08:32)
[2018-11-01] MEDS: LOSARTAN POTASSIUM 25 MG TAB PO SCH (08:33)
[2018-11-01] MEDS: CHOLECALCIFEROL (VITAMIN D) 400 UNITS TABLET PO SCH (08:33)
[2018-11-01] MEDS: ASPIRIN 81 MG ECTAB PO SCH (08:33)
[2018-11-01] MEDS: LORATADINE 10 MG TAB PO SCH (08:33)
[2018-11-01] MEDS: predniSONE 20 MG TAB PO SCH (08:33)
[2018-11-01] MEDS: CEROVITE ADV FORMULA TAB PO SCH (08:33)
[2018-11-01] MEDS: DULOXETINE HCL 30 MG CAP PO SCH (08:33)
[2018-11-01] MEDS: FUROSEMIDE 40 MG TAB PO SCH (08:33)
[2018-11-01] MEDS: CARVEDILOL 12.5 MG TAB PO SCH ×2 (08:33→17:34)
[2018-11-01] MEDS: FLUTICASONE PROPIONATE NA SPR 16 GM BTL SCH (08:34)
[2018-11-01] MEDS: QUETIAPINE FUMARATE 25 MG TABLET PO SCH ×2 (08:34→21:12)
[2018-11-01] MEDS: NEOMYCIN/POLYMYX/HYDROCORT OT SOLN 10 ML BTL OT SCH ×3 (08:35→17:34)
[2018-11-01] MEDS: INSULIN ASPART 100 UNITS/ML 3 ML PEN SQ SCH ×4 (08:36→21:08)
[2018-11-01] MEDS: GABAPENTIN 100 MG CAP PO SCH ×2 (10:11→21:12)
--- NOTE | 2018-11-01 10:57 | Hospitalist Progress Note ---
Date of Service November 01, 2018 Assessment & Plan (1) PMR (polymyalgia rheumatica): Suspect headache, neck stiffness, neck pain, shoulder pain secondary to a recent PMR flare. -S/P IV Steroids ---> Prednisone 20 mg daily - continue for at least 2 weeks and further decision to be taken by PCP . May consider lower dose maintenance to prevent relapse. (2) Dementia: -Chronic dementia with frequent bursts of anger. -Lives in the dementia unit of [facility]. At her baseline- disoriented x 3, calm and comfortable (3) UTI (urinary tract infection): Katie glabrata grew out of recent urine culture from ER visit prior to this admission - 10/26/2018. -Per ID recs, repeat culture indicated. With current clinical picture, she is not ill-appearing and appears to be at her baseline mental status and behaviors per daughter. Repeat UCx is showing no growth - less than 1000 colonies/ml, Final culture - Yeast. D/w ID- no need to treat for past katie glabrata as asymptomatic and repeat yeast only -On IV Rocephin - Day 4 today. As no bacterial growth in Urine, will discontinue IV Rocephin -Appreciate ID inputs (4) Diabetes mellitus, type 2: -Continue Levemir and NovoLog. -Appreciate glycemic pharmacy recommendations. (5) Chronic systolic heart failure: compensated -Continue with lasix daily (6) DVT prophylaxis: Lovenox SQ Full code Disposition- DC to [facility] Dementia unit today. CM working on it. Updated daughter by bedside Subjective Patient is calm, disoriented at baseline. Requires assistance with feeding, had around 50% of her meal today. No fever No overnight events Physical Exam Physical Exam: GENERAL-Sleepy. Disoriented x3, not in acute distress. Calm and comfortable LUNGS- Air entry bilaterally equal. No rales, rhonchi, crackles, wheezes heard. HEART- Regular rate and rhythm. No murmurs ABDOMEN- Soft, non tender, non distended, Bowel sounds heard. EXTREMITIES-no edema NEUROLOGICAL- No focal deficits Results & Data Vital Signs (Past 12 Hours) Vital Signs Temp Pulse Resp BP Pulse Ox 11/01/18 07:04 36.7 C 73 20 163/74 H 94 11/01/18 00:31 36.7 C 95 H 18 139/68 100 (1) Dementia Dementia behavioral disturbance: with behavioral disturbance Dementia type: unspecified type Qualified Code(s): F03.91 - Unspecified dementia with behavioral disturbance
[2018-11-01] MEDS: ENOXAPARIN INJ 40 MG/0.4 ML SYR SQ SCH ×2 (21:09→21:23)
[2018-11-01] MEDS: INSULIN DETEMIR FLEXPEN/FLEX TOUCH 100 UNITS/ML 3ML SC SCH (21:09)
[2018-11-01] MEDS: TOLTERODINE TARTRATE 1 MG TAB PO SCH (21:12)
--- NOTE | 2018-11-01 23:09 | Infectious Disease Progress Nt ---
Date of Service November 01, 2018 Assessment & Plan (1) Candidal UTI (urinary tract infection): 78-year-old female with polymyalgia rheumatica with positive urine culture for Katie glabrata. Does not appear to have significant symptoms associated with this, would hold therapy for now. Discussed with hospitalist. Subjective Patient seen in follow-up for possible Katie urinary tract infection. Appears calm, no obvious new problems. Remains afebrile. Review of Systems Review of Systems: Unobtainable due to cognitive status Physical Exam Constitutional: WD/WN, vitals as above comfortable; no acute distress Eyes: PERRL, conjunctivae normal, anicteric sclerae ENMT: external ear and nose normal, oropharynx normal Neck: trachea midline, no thyromegaly neck nontender Respiratory: normal respiratory effort, lungs clear to auscultation normal percussion; no respiratory distress Cardiovascular: Rate/Rhythm: regular rate and regular rhythm Heart Sounds: normal S1 and normal S2; no gallop, no murmur and no cardiac rub Gastrointestinal (Abdomen): normal bowel sounds, soft, nontender, no hepatosplenomegaly Musculoskeletal: no cyanosis or clubbing, extremities motor strength 5/5 No spinal tenderness, no joint swelling or erythema Skin: no rashes, warm and dry no lesions Neurologic: moves all extremities and awake; no focal motor deficits Motor/Sensory: no sensory deficit Psychiatric: Orientation: + not oriented x 3 Lymphatic: no cervical or axillary lymphadenopathy no inguinal lymphadenopathy Results & Data Vital Signs (Past 12 Hours) Vital Signs Temp Pulse Resp BP Pulse Ox 11/01/18 17:30 36.8 C 74 18 140/74 96 Laboratory Results Short CBC 11/01/18 Range/Units 05:39 WBC 10.83 H (4.8-10.8) K/uL Hgb 9.7 L (12.0-16.0) g/dL Hct 29.3 L (37-47) % Plt Count 503 H (130-400) K/uL BMP 11/01/18 05:39 Sodium 139 Potassium 3.8 Chloride 107 Carbon Dioxide 24 BUN 15 Creatinine 0.70 Glucose 120 H Calcium 8.6 Diagnostic Findings Microbiology 10/30/18 22:31 Urine,Straight Cath Urine Culture - Preliminary Yeast not Katie albicans 10/28/18 18:18 Blood Aerobic Blood Culture - Preliminary No growth in Aerobic bottle after 48 hours. 10/28/18 18:18 Blood Anaerobic Blood Culture - Preliminary No growth in Anaerobic bottle after 48 hours. 10/28/18 18:23 Blood Aerobic Blood Culture - Preliminary No growth in Aerobic bottle after 48 hours. 10/28/18 18:23 Blood Anaerobic Blood Culture - Preliminary No growth in Anaerobic bottle after 48 hours.
[2018-11-02] MEDS: INSULIN ASPART 100 UNITS/ML 3 ML PEN SQ SCH ×3 (07:58→17:11)
[2018-11-02] MEDS: ASPIRIN 81 MG ECTAB PO SCH (08:04)
[2018-11-02] MEDS: LOSARTAN POTASSIUM 25 MG TAB PO SCH (08:04)
[2018-11-02] MEDS: SPIRONOLACTONE 25 MG TAB PO SCH (08:04)
[2018-11-02] MEDS: QUETIAPINE FUMARATE 25 MG TABLET PO SCH (08:05)
[2018-11-02] MEDS: CEROVITE ADV FORMULA TAB PO SCH (08:05)
[2018-11-02] MEDS: DULOXETINE HCL 30 MG CAP PO SCH (08:05)
[2018-11-02] MEDS: CHOLECALCIFEROL (VITAMIN D) 400 UNITS TABLET PO SCH (08:05)
[2018-11-02] MEDS: CARVEDILOL 12.5 MG TAB PO SCH ×2 (08:05→16:04)
[2018-11-02] MEDS: FUROSEMIDE 40 MG TAB PO SCH (08:05)
[2018-11-02] MEDS: GABAPENTIN 100 MG CAP PO SCH (08:05)
[2018-11-02] MEDS: FLUTICASONE PROPIONATE NA SPR 16 GM BTL SCH (08:07)
[2018-11-02] MEDS: LORATADINE 10 MG TAB PO SCH (08:07)
[2018-11-02] MEDS: NEOMYCIN/POLYMYX/HYDROCORT OT SOLN 10 ML BTL OT SCH ×3 (08:07→16:04)
[2018-11-02] MEDS: predniSONE 20 MG TAB PO SCH (08:08)
--- NOTE | 2018-11-02 09:20 | Pharmacy Report ---
Pharmacy Glycemic Short Note 2 - Date of Service November 02, 2018 - Glycemic Short BSG Results (Last 24 hours): 11/01/18 11/01/18 11/01/18 11:19 16:42 20:00 POC Glucose 155 H 158 H 216 H 11/02/18 11/02/18 11/02/18 07:33 07:34 07:36 POC Glucose 44 L* 67 L* 48 L* 11/02/18 07:54 POC Glucose 156 H OUTPATIENT ANTIDIABETIC REGIMEN: * Levemir 25u HS, Novolog 9u AM & 11u dinner ASSESSMENT: * Patient had 66 units of insulin yesterday (50 units basal), and had AM hypoglycemia. * Patient was initially requiring much more basal, but is not any longer with IV steroids wearing off. * Patient requires reduction in Lantus, will also loosen CF and CR slightly, but still enough to cover steroid effects. * Patient will continue Prednisone 20mg PO daily x2 weeks PLAN FOR INPATIENT GLYCEMIC CONTROL: * Basal insulin - DECREASE * Lantus SQ scale HS * BSGs <110mg/dl: 25 units * BSGs 110mg/dl or greater: 35 units * Bolus insulin * NovoLog per scale ACHS or Q6hrs while NPO * Goal Range: Low 110 mg/dL - High 140 mg/dL * loosen: Correction Factor: 20 mg/dL/unit * loosen: Nutritional / Prandial insulin per carb ratio of 1 unit per 5 grams CHO consumed
--- NOTE | 2018-11-02 12:25 | Hospitalist Progress Note ---
Date of Service November 02, 2018 Assessment & Plan (1) PMR (polymyalgia rheumatica): Suspect headache, neck stiffness, neck pain, shoulder pain secondary to a recent PMR flare. -S/P IV Steroids ---> Prednisone 20 mg daily - continue for at least 2 weeks and further decision to be taken by PCP/ Rheumatology . May consider lower dose maintenance to prevent relapse. Per daughter, patient was on steroids around 3-4 years ago and used to follow up with Rheumatology outpatient. (2) Dementia: -Chronic dementia with frequent bursts of anger. -Lives in the dementia unit of [facility]. At her baseline- disoriented x 3, calm and comfortable (3) UTI (urinary tract infection): Katie glabrata grew out of recent urine culture from ER visit prior to this admission - 10/26/2018. -Per ID recs, repeat culture indicated. With current clinical picture, she is not ill-appearing and appears to be at her baseline mental status and behaviors per daughter. Repeat UCx is showing no growth - less than 1000 colonies/ml, Final culture - Yeast. D/w ID- no need to treat for past katie glabrata as asymptomatic and repeat yeast only -Received IV Rocephin - Day 4 . As no bacterial growth in Urine, discontinued IV Rocephin -Appreciate ID inputs (4) Diabetes mellitus, type 2: Hypoglycemic episode today with Blood sugar down to 48, now up to 146 09/11/18- HBA1C 8.7 -Home regimen: Levemir 25 units at bedtime, NovoLog 9 units in a.m., 11 units in p.m. Discussed with pharmacistpatient had an extra dose of Levemir 25 mg yesterday as was on IV steroids a few days ago. Transient hypoglycemia secondary to this extra dose. No need to change home regimen. -Appreciate glycemic pharmacy recommendations. -Monitor outpatient (5) Chronic systolic heart failure: compensated -Continue with lasix daily (6) DVT prophylaxis: Lovenox SQ Full code Disposition- DC to [facility] Dementia unit today. Updated daughter over phone about discharge plan. Subjective Patient is a little sleepy today but was very alert yesterday evening. Does have some puffiness in both hands and few complains of pain all over Poor historian and unreliable history Physical Exam Physical Exam: GENERAL-Sleepy. Disoriented x3, not in acute distress. Calm and comfortable LUNGS- Air entry bilaterally equal. No rales, rhonchi, crackles, wheezes heard. HEART- Regular rate and rhythm. No murmurs ABDOMEN- Soft, non tender, non distended, Bowel sounds heard. EXTREMITIES- Bilateral hand puffiness NEUROLOGICAL- No focal deficits (1) Dementia Dementia behavioral disturbance: with behavioral disturbance Dementia type: unspecified type Qualified Code(s): F03.91 - Unspecified dementia with behavioral disturbance
--- NOTE | 2018-11-02 12:38 | Discharge Summary ---
Date of Service November 02, 2018 Admission HPI Per Admitting Provider 78-year-old white female medical history of headaches, severe dementia, congestive heart failure, cardiomyopathy, AICD placement, dementia, non-STEMI, EF 30 to 35% was sent here from [facility] secondary to confusion and fatigue. She was seen here 2 days ago by the emergency room and discharged on Cipro for a UTI. ER doc reports to me that she has had a headache for a week, she is demented and he thinks that she is having a PMR flare. Her sed rate is greater than 90 and her CRP is 25 and very tender left shoulder. Her glucose was 380 she was given Decadron in the ER which I will continue. Principal Diagnosis 1. Polymyalgia Rheumatica flare 2. Dementia Secondary diagnosis on discharge 1. DM II 2. Chronic systolic heart failure Discharge Exam GENERAL-Sleepy. Disoriented x3, not in acute distress. Calm and comfortable LUNGS- Air entry bilaterally equal. No rales, rhonchi, crackles, wheezes heard. HEART- Regular rate and rhythm. No murmurs ABDOMEN- Soft, non tender, non distended, Bowel sounds heard. EXTREMITIES- Bilateral hand puffiness NEUROLOGICAL- No focal deficits Discharge Data Allergies Allergy/AdvReac Type Severity Reaction Status Date / Time Bactrim Allergy Unknown . Verified 09/05/17 16:36 lisinopril Allergy Unknown Unknown Verified 10/28/18 18:33 Penicillins Allergy Unknown . Verified 10/28/18 18:33 sulfamethoxazole Allergy Unknown . Verified 10/28/18 18:33 trimethoprim Allergy Unknown . Verified 10/28/18 18:33 atorvastatin AdvReac Intermediate MUSCLE PAIN Verified 10/28/18 18:33 capsaicin AdvReac Intermediate N/V Verified 10/28/18 18:33 diclofenac AdvReac Intermediate N/V Verified 10/28/18 18:33 Diclopak AdvReac Intermediate N/V Verified 09/05/17 13:27 rosuvastatin AdvReac Intermediate MUSCLE PAIN Verified 10/28/18 18:33 fenofibrate AdvReac Mild SORE MOUTH Verified 10/26/18 16:40 Consultations 10/28/18 20:14 ED Decision to Admit Stat 10/29/18 18:02 Consult Infectious Diseases Routine Ordered Studies 10/28/18 17:56 CT angio head w con Urgent CT angio neck with con Urgent CT head/brain wo con Urgent Hospital Course (1) PMR (polymyalgia rheumatica): Suspect headache, neck stiffness, neck pain, shoulder pain secondary to a recent PMR flare. -S/P IV Steroids ---> Prednisone 20 mg daily - continue for at least 2 weeks and further decision to be taken by PCP/ Rheumatology . May consider lower dose maintenance to prevent relapse. Per daughter, patient was on steroids around 3-4 years ago and used to follow up with Rheumatology outpatient. (2) Dementia: -Chronic dementia with frequent bursts of anger. -Lives in the dementia unit of [facility]. At her baseline- disoriented x 3, calm and comfortable (3) UTI (urinary tract infection): Teja glabrata grew out of recent urine culture from ER visit prior to this admission - 10/26/2018. -Per ID recs, repeat culture indicated. With current clinical picture, she is not ill-appearing and appears to be at her baseline mental status and behaviors per daughter. Repeat UCx is showing no growth - less than 1000 colonies/ml, Final culture - Yeast. D/w ID- no need to treat for past teja glabrata as asymptomatic and repeat yeast only -Received IV Rocephin - Day 4 . As no bacterial growth in Urine, discontinued IV Rocephin -Appreciate ID inputs (4) Diabetes mellitus, type 2: Hypoglycemic episode today with Blood sugar down to 48, now up to 146 09/11/18- HBA1C 8.7 -Home regimen: Levemir 25 units at bedtime, NovoLog 9 units in a.m., 11 units in p.m. -Had an extra dose of Levemir yesterday as she was on IV Steroids so blood sugar dropped today AM. Discussed with pharmacist . Will continue with her home regimen. -Appreciate glycemic pharmacy recommendations. (5) Chronic systolic heart failure: compensated -Continue with lasix daily (6) DVT prophylaxis: Lovenox SQ Full code Disposition- DC to [facility] Dementia unit today. Updated daughter over phone about discharge plan. Total Time Total Time Spent Total Time Spent (In Minutes): 38 minutes Discharge Plan Discharge Items Patient Disposition: [facility] Reason For Visit: CONFUSION, FATIGUE Discharge Diagnosis: Polymyalgia Rheumatica Flare Discharge Goals: Decrease discomfort Activity: Resume your previous activity Activity Comment: as tolerated prior to admission. Continue with PT/OT outpatient Non-emergency contact: Primary Care Provider Call non-emergency contact if: your symptoms worsen Follow-up/Referrals: Shawn, [Primary Care Provider] - Diet: Carb Consistent or DM2 and Heart Healthy Addtl Provider Instructions: MEDICATION CHANGES New medication- Prednisone 20 mg daily x 2 weeks. Please re establish care with Rheumatolgist to determine the duration of steroids and follow up. Monitor 1. Blood sugars while on steroids Recommend: PT/OT Prescriptions: New prednisone 20 mg Tablet 20 mg PO DAILY 14 Days Qty: 14 RF: 0 Continued tolterodine [Detrol] 1 mg Tablet 1 mg PO HS RF: 0 Levemir FlexTouch U-100 Insuln 100 unit/mL (3 mL) Insulin Pen 25 unit SUBCUT HS RF: 0 carvedilol 12.5 mg Tablet 12.5 mg PO BIDM RF: 0 ranitidine HCl 150 mg Tablet 150 mg PO BID RF: 0 loratadine 10 mg Tablet 10 mg PO QAM RF: 0 gabapentin 100 mg Capsule 100 mg PO BID RF: 0 fluticasone propionate 50 mcg/actuation Anderson,Suspension 2 spray INTRANASAL QAM RF: 0 albuterol sulfate [Ventolin HFA] 90 mcg/actuation Hfa Aerosol Inhaler 2 puff INHALATION Q4H PRN (Reason: Wheezing/Cough) RF: 0 acetaminophen [Acetaminophen Extra Strength] 500 mg Tablet 1,000 mg PO Q8H PRN (Reason: Pain) RF: 0 aspirin [Aspirin Low Dose] 81 mg Tablet,Delayed Release (Dr/Ec) 81 mg PO QAM RF: 0 cholecalciferol (vitamin D3) 400 unit Capsule 400 unit PO QAM RF: 0 melatonin 3 mg Tablet 3 mg PO HS RF: 0 lorazepam 0.5 mg tablet 0.5 mg PO TID PRN (Reason: Anxiety) RF: 0 losartan 25 mg Tablet 25 mg PO QAM RF: 0 nystatin 100,000 unit/gram powder 1 applic topical DIRECTED PRN (Reason: Skin Care) RF: 0 duloxetine 30 mg Capsule,Delayed Release(Dr/Ec) 30 mg PO QAM RF: 0 quetiapine 50 mg tablet 50 mg PO QAM RF: 0 quetiapine 50 mg tablet 75 mg PO HS RF: 0 spironolactone 25 mg Tablet 25 mg PO QAM Qty: 30 RF: 1 furosemide 40 mg Tablet 40 mg PO QAM Qty: 30 RF: 1 [id number] 3.5-10,000-1 mg/mL-unit/mL-% solution 4 drp otic (ear) DIRECTED RF: 0 Novolog Flexpen U-100 Insulin 100 unit/mL (3 mL) insulin pen 9 unit subcut QAM RF: 0 One-A-Day Women's 50 Plus 400-20 mcg Tablet 1 tab PO QAM RF: 0 Novolog Flexpen U-100 Insulin 100 unit/mL (3 mL) insulin pen 11 unit subcut QDD RF: 0 Discontinued ciprofloxacin HCl [Cipro] 500 mg tablet 500 mg PO Q12H Qty: 14 RF: 0 Stand-Alone Forms: [facility] Admission Data Admit Date/Time: 10/28/18 21:47 Attending Provider: Yvonne Mcelroy Admit Provider: Gulshan Schneider Primary Care Provider: Shawn, Other Providers: Gulshan Schneider ; Kwame Curry ; Keysha Chavarria Service: Medical
== END 2018-11-02 18:45 | disposition home or self-care (01) | DRG 546 ==
LOC: ED 17:27 → SUATTDRO 21:47 → 2W 21:47

== ENCOUNTER 2019-01-21 03:47 | Inpatient (IN) ==
[2019-01-21] MEDS ORDERED: DEXTROSE 50% 50 ML SYRINGE IV ONE (03:56)
[2019-01-21] MEDS ORDERED: SODIUM CHLORIDE 0.9% 1000ML 500 ML IV ONE (04:01)
[2019-01-21 04:27] LABS: Appearance Urine Cloudy (Clear); Bacteria Urine Automated Negative (Negative); Bilirubin Urine Negative (Negative); Blood Urine Negative (Negative); Color Urine Yellow; Epithelial Cell Urine Auto 0-5 /lpf (0-5); Glucose Urine UA Trace (Negative); Ketones Urine Negative (Negative); Leukocyte Esterase Urine 3+ (Negative); Nitrite Urine Negative (Negative); Protein Urine Trace (Negative); Specific Gravity Urine 1.017 (1.000-1.030); Urobilinogen Urine Negative (Negative); WBC Urine Automated >30 /hpf (0-5)
[2019-01-21 04:50] LABS: Basophils # (auto) 0.01 K/uL (0-0.2); Basophils % (auto) 0.1 %; Eosinophils # (auto) 0.08 K/uL (0-0.5); Eosinophils % (auto) 0.7 %; Hematocrit (blood only) 28.7 % (37-47); Hemoglobin 9.3 g/dL (12.0-16.0); Immature Granulocytes # (auto) 0.03 K/uL (0.00-0.02); Immature Granulocytes % (auto) 0.3 %; Lymphocytes # (auto) 2.99 K/uL (1.2-3.4); Lymphocytes % (auto) 27.2 %; Mean Corpuscular Hemoglobin 27.5 pg (25-34); Mean Corpuscular Hgb Conc 32.4 g/dL (32-36); Mean Corpuscular Volume 84.9 fL (80-100); Mean Platelet Volume 8.7 fL (7.4-10.4); Monocytes # (auto) 0.84 K/uL (0.11-0.59); Monocytes % (auto) 7.7 %; Neutrophils # (auto) 7.03 K/uL (1.4-6.5); Platelet Count 361 K/uL (130-400); RDW Coefficient of Variation 17.4 % (11.5-14.5); RDW Standard Deviation 54.3 fL (36.4-46.3); Red Blood Count 3.38 M/uL (4.2-5.4); White Blood Count 10.98 K/uL (4.8-10.8)
[2019-01-21 04:53] LABS: RBC Urine Automated 0-4 /hpf (0-4)
[2019-01-21 05:09] LABS: Alanine Aminotransferase 14 U/L (12-78); Albumin Level 2.3 gm/dl (3.4-5.0); Aspartate Aminotransferase 12 U/L (15-37); BUN Creatinine Ratio 25.2 (10-20); Bilirubin Direct < 0.1 mg/dl (0-0.2); Blood Urea Nitrogen 27 mg/dl (7-18); Carbon Dioxide 28 mmol/L (21-32); Chloride 97 mmol/L (98-107); Est GFR (African American) 57.3; Est GFR (Non-African American) 49.5; Glucose 252 mg/dl (70-99); Lipase 55 U/L (73-393); Potassium 3.4 mmol/L (3.5-5.1); Sodium 132 mmol/L (136-145)
[2019-01-21 05:14] LABS: Alkaline Phosphatase 65 U/L (45-117); Bilirubin,Total 0.3 mg/dl (0.2-1); Total Protein 6.5 gm/dl (6.4-8.2); Troponin I < 0.015 ng/ml (0-0.045)
[2019-01-21] MEDS ORDERED: SODIUM CHLORIDE 0.9% 1000ML 1,000 ML IV ONE (06:16)
[2019-01-21] MEDS ORDERED: cefTRIAXone SODIUM 1,000 MG/50 ML BAG IV STA (06:19)
--- NOTE | 2019-01-21 06:37 | Emergency Department Note ---
Entered by Augustine Mcelroy acting as a scribe for ED Provider Note Name: Angela Liu Age: 78 Arrives Via: EMS Informant: Nursing and patient CC: Hypoglycemia HPI: A female arrives for evaluation of hypoglycemia. Nursing states the patient was at the Dementia unit at [facility]. Nursing states the patient was not eating for the past few days. Nursing states the patient slumped down in her chair and went on the floor. Nursing states the patient's blood sugar was 28 before coming to the ED. Nursing notes the patient did not hit her head. The patient shakes her head when asked if she is in any pain. HPI is limited secondary to mental acuity. ROS: See above HPI for pertinent positives & negatives. A total of 10 systems reviewed and were otherwise negative. ROS is limited secondary to mental acuity. Past Medical History: Chronic systolic heart failure, DVT prophylaxis, Dementia, Candidal UTI, HTN, GERD, PVD, CHF, Cholelithiasis, NSTEMI, Diabetes, PMR, Past Surgical History: Pacemaker inserted Family History: Family history non-contributory Social History: Speaks Nepalese Home Medications: Butalbital, carvedilol, cholecalciferol, duloxetine, fluticasone, furosemide, gabapentin, Loratadine, Prednisone, quetiapine, ranitidine, spironolactone, tolterodine Allergies Bactrim, Lisinopril, penicillins, sulfamethoxazole, trimethoprim, atorvastatin, capsaicin, diclofenac, diclopak, rosuvastatin, fenofibrate Physical: Vitals: BP 90/53, P 93, R 18, O2 97%, Temp 94.6 Exam: GENERAL: Patient is mildly dehydrated appearing and in no acute distress. Patient is distant and demented appearing. Patient answers no to all questions. EYES: No scleral icterus, unremarkable pupils. ENT: Mucous membranes louise dry, no nasal congestion. NECK: No masses appreciated, no meningismus, trachea is midline. RESPIRATORY: No dyspnea. Clear to auscultation and equal bilaterally. No wheeze, no rhonchi. CARDIOVASCULAR: Regular rate and rhythm. No murmurs, rubs, gallops appreciated. GASTROINTESTINAL: Abdomen soft, non-tender, no peritonitis. Bowel sounds positive. No masses appreciated. BACK: No midline tenderness, no CVA tenderness EXTREMITIES: Normal motion all extremities, no cyanosis, no edema. NEUROLOGIC: No acute motor or sensory deficits, no focal weakness, cranial nerves grossly intact. SKIN: No rash, no jaundice, no diaphoresis. ED Course: Prior Medical Record, Triage/Nursing Notes, Medications, Allergies reviewed by Me Vital Signs: reviewed and remarkable for hypotensive, hypothermic Labs: Reviewed and remarkable for unremarkable cbc, bmp, lft, lipase. UA cloud y on straight cath Interventions: Saline lock, nss bolus 1.5 L, Rocephin 1 g IV, D50 IV Imaging: X ray results are stated below per my interpretation: Chest: 1 view: No infiltrate, no effusion, normal cardiac border. EKG: Per My Interpretation: Indication AMS/Weak: A-sensed, V paced 85 bpm no ecotpy, no ischemia. qtc 597. Similar morphology to October 28, 2018 Blood pressure: Hypotensive Course: 0358: The patient was evaluated in room A2, and a complete history and physical examination were performed. 0616: I reevaluated the patient. She now has a BP of 78/42. Repeat abdominal exam is unremarkable. I asked nursing to obtain blood cultures. 0705: I paged Frederic. 0719: I discussed the patient's case with Dr. Kaur De La Garza Hospitalist. He will evaluate the patient for further management Disposition: Hospitalization Differentials: Toxicological, Infectious, Stroke, SAH, Trauma, Electrolyte Abnormality, Hypoglycemia, Alcohol Intoxication, Drug Intoxication, Cardiac Abnormality, Sepsis, Meningitis/Encephalitis, Trauma, Excited Delirium, Serotonin Syndrome, Psychiatric, amongst other pathologies Entertained. Medical Decision Makin yr old demented female arrives for weakness and hypoglycemia. Given D50 on arrival with improvement in BSG. She was noted to be mildly hypotensive, though review of previous she does tend to be a bit on low side. Given 500mL IV fluids for resus and noted to initially have improvement, but then BP started dropping again. BSG staying OK. With hypotensive worsening, hypothermia and hypoglycemia, she was concerned sepsis and thus further IV fluids given along with empiric Rocephin as likely urinary source (Straight Cath UA). She during this is in no distress, somnolent and has unremarkable exam with soft abdomen/non-tender breathing comfortably. I will note that toe wounds without evidence infection on my exam. She has chronic low BPs but SBP in 70s is clearly lower than her normal. Hypothermia is also something new for her, and it did improve slightly with warmer here. Impression: Hypoglycemia Weakness Acute UTI Acute Hypotension Hypothermia Critical Care Time: I have personally spent greater than 30 minutes of critical care time in the direct management of this patient. Hypotensive hypothermic patient with acute hypoglycemia. This was a life/limb threatening event. This includes time spent evaluating patient, direct bedside care, chart review, placing orders, interpretation of diagnostic studies, discussion with consultants, as well as other required patient management activities. This 30 minutes is in excess of all separately billable procedures. The scribe's documentation has been prepared under my direction and personally reviewed by me in its entirety. I confirm that the note above accurately reflects all work, treatment, procedures, and medical decision making performed by me. Celestino Darling MD Impression & Plan Hypoglycemia, Weakness, Acute UTI, Acute hypotension, Hypothermia Past Med/Surg History Medical History Hypoglycemia (Acute) Weakness (Acute) Acute UTI (Acute) Acute hypotension (Acute) Hypothermia (Acute) Chronic systolic heart failure Candidal UTI (urinary tract infection) DVT prophylaxis PMR (polymyalgia rheumatica) Dementia Leukocytosis Hyperglycemia (Acute) HTN (hypertension) (Chronic) GERD (gastroesophageal reflux disease) (Chronic) PVD (peripheral vascular disease) (Chronic) ICD (implantable cardioverter-defibrillator) in place (Chronic) Pacemaker (Chronic) Osteomyelitis (Acute) Diabetic foot ulcer associated with type 2 diabetes mellitus (Acute) Dementia (Chronic 11/01/12) Coronary artery disease (Chronic) "s/p VA" Systolic CHF, chronic (Chronic) "ischemic cardiomyopathy" History of bradycardia (Chronic) Ambulatory dysfunction (Chronic) Diabetes mellitus, type 2 (Chronic) Statin intolerance (Chronic) RADHA inhibitor intolerance (Chronic) PMR (polymyalgia rheumatica) (Chronic) Carotid arterial disease (Chronic) Chest pain Outbursts of anger (Acute) Dementia Surgical History Status post coronary artery bypass grafting (Chronic) Status post cardiac pacemaker procedure (Chronic) Status post cataract extraction (Chronic) Status post tubal ligation (Chronic) Social History Preferred Language: Nepalese 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 Beliefs That Will Affect Care: None marital status: / Current Living Situation: Personal Care Facility Current Living Situation Comment: [facility] dementia unit current occupational status: retired Other Information That Helps Us Care for You: No Feels Safe at Home: Yes Safety Concerns: Feels Safe At This Time Smoking Status: Never smoker Do You Dip or Chew Tobacco: No ; Second Hand Exposure: No ; Tobacco Cessation Education Requested by Patient: No Hx Alcohol Use: No Hx Substance Use: No Results & Data Vital Signs Vital Signs - 24 hr 01/21/19 03:50 01/21/19 04:28 01/21/19 04:30 Temperature 34.8 C L Temperature Source Rectal Rectal Temperature - Source 2 Sepsis Recent Fever Within 48 Hours No Sepsis Action Taken by Nursing No Action Required Pulse Rate 89 85 88 Pulse Rate [Left Finger] Pulse Rate from SpO2 Sensor 88 86 89 Respiratory Rate 18 20 15 Respiratory Effort / Characteristics Non-Labored Respiratory Depth Normal Blood Pressure 90/53 L 133/71 119/63 Blood Pressure [Right Arm] Blood Pressure Mean 65 91 81 Blood Pressure Mean [Right Arm] Blood Pressure Position Lying Pulse Oximetry 93 100 100 Oxygen Delivery Method Room Air 01/21/19 04:46 01/21/19 05:08 01/21/19 05:11 Temperature 34.5 C L Temperature Source Rectal Rectal Temperature - Source 2 Sepsis Recent Fever Within 48 Hours Sepsis Action Taken by Nursing Pulse Rate 68 70 Pulse Rate [Left Finger] Pulse Rate from SpO2 Sensor 68 69 Respiratory Rate 16 19 Respiratory Effort / Characteristics Respiratory Depth Blood Pressure 103/61 105/50 L Blood Pressure [Right Arm] Blood Pressure Mean 75 68 Blood Pressure Mean [Right Arm] Blood Pressure Position Pulse Oximetry 100 96 Oxygen Delivery Method 01/21/19 05:16 01/21/19 05:50 01/21/19 06:08 Temperature Temperature Source Rectal Temperature - Source 2 35.4 C L Sepsis Recent Fever Within 48 Hours Sepsis Action Taken by Nursing Pulse Rate 68 74 72 Pulse Rate [Left Finger] Pulse Rate from SpO2 Sensor 68 74 71 Respiratory Rate 15 17 20 Respiratory Effort / Characteristics Respiratory Depth Blood Pressure 97/67 L 96/55 L 93/52 L Blood Pressure [Right Arm] Blood Pressure Mean 77 68 65 Blood Pressure Mean [Right Arm] Blood Pressure Position Pulse Oximetry 99 96 95 Oxygen Delivery Method 01/21/19 06:15 01/21/19 06:18 01/21/19 06:30 Temperature Temperature Source Rectal Temperature - Source 2 35.5 C L 35.6 C L 35.7 C L Sepsis Recent Fever Within 48 Hours Sepsis Action Taken by Nursing Pulse Rate 72 72 69 Pulse Rate [Left Finger] Pulse Rate from SpO2 Sensor 69 72 68 Respiratory Rate 23 23 18 Respiratory Effort / Characteristics Respiratory Depth Blood Pressure 78/48 L 97/51 L 95/47 L Blood Pressure [Right Arm] Blood Pressure Mean 58 66 63 Blood Pressure Mean [Right Arm] Blood Pressure Position Pulse Oximetry 84 L 94 94 Oxygen Delivery Method 01/21/19 06:52 01/21/19 07:28 01/21/19 08:28 Temperature 36.3 C L 36.8 C Temperature Source Rectal Rectal Rectal Rectal Temperature - Source 2 Sepsis Recent Fever Within 48 Hours Sepsis Action Taken by Nursing Pulse Rate Pulse Rate [Left Finger] 69 84 88 Pulse Rate from SpO2 Sensor Respiratory Rate 24 21 20 Respiratory Effort / Characteristics Respiratory Depth Normal Normal Blood Pressure Blood Pressure [Right Arm] 93/50 L 109/51 L 89/52 L Blood Pressure Mean Blood Pressure Mean [Right Arm] 64 70 64 Blood Pressure Position Pulse Oximetry 95 95 100 Oxygen Delivery Method Room Air Room Air Room Air 01/21/19 08:46 Temperature 36.9 C Temperature Source Rectal Rectal Temperature - Source 2 Sepsis Recent Fever Within 48 Hours Sepsis Action Taken by Nursing Pulse Rate Pulse Rate [Left Finger] 78 Pulse Rate from SpO2 Sensor Respiratory Rate 16 Respiratory Effort / Characteristics Non-Labored Respiratory Depth Normal Blood Pressure Blood Pressure [Right Arm] 109/52 L Blood Pressure Mean Blood Pressure Mean [Right Arm] 71 Blood Pressure Position Pulse Oximetry 99 Oxygen Delivery Method Room Air Laboratory Data Result diagrams: 01/21/19 04:31 01/21/19 04:31 Lab Results 01/21/19 01/21/19 01/21/19 Range/Units 03:55 03:56 04:06 WBC (4.8-10.8) K/uL RBC (4.2-5.4) M/uL Hgb (12.0-16.0) g/dL Hct (37-47) % MCV (80-100) fL MCH (25-34) pg MCHC (32-36) g/dL RDW Std Deviation (36.4-46.3) fL RDW Coeff of Fercho (11.5-14.5) % Plt Count (130-400) K/uL MPV (7.4-10.4) fL Immature Gran % (Auto) % Neut % (Auto) % Lymph % (Auto) % [place] % (Auto) % Eos % (Auto) % Baso % (Auto) % Immature Gran # (Auto) (0.00-0.02) K/uL Neut # (Auto) (1.4-6.5) K/uL Lymph # (Auto) (1.2-3.4) K/uL [place] # (Auto) (0.11-0.59) K/uL Eos # (Auto) (0-0.5) K/uL Baso # (Auto) (0-0.2) K/uL Sodium (136-145) mmol/L Potassium (3.5-5.1) mmol/L Chloride (98-107) mmol/L Carbon Dioxide (21-32) mmol/L Anion Gap (3-11) BUN (7-18) mg/dl Creatinine (0.6-1.2) mg/dl Est Cr Clr Drug Dosing Est GFR ( Amer) Est GFR (Non-Af Amer) BUN/Creatinine Ratio (10-20) Glucose (70-99) mg/dl POC Glucose 30 L* 36 L* (70-99) Lactate (0.4-2.0) mmol/L Calcium (8.5-10.1) mg/dl Total Bilirubin (0.2-1) mg/dl Direct Bilirubin (0-0.2) mg/dl AST (15-37) U/L ALT (12-78) U/L Alkaline Phosphatase (45-117) U/L Troponin I (0-0.045) ng/ml Total Protein (6.4-8.2) gm/dl Albumin (3.4-5.0) gm/dl Lipase (73-393) U/L Procalcitonin (0-0.5) ng/ml Urine Color Yellow Urine Appearance Cloudy A (Clear) Urine pH 5.0 (4.5-7.5) Ur Specific [place] 1.017 (1.000-1.030) Urine Protein Trace H (Negative) Urine Glucose (UA) Trace H (Negative) Urine Ketones Negative (Negative) Urine Blood Negative (Negative) Urine Nitrite Negative (Negative) Urine Bilirubin Negative (Negative) Urine Urobilinogen Negative (Negative) Ur Leukocyte Esterase 3+ H (Negative) Urine WBC (Auto) >30 H (0-5) /hpf Urine RBC (Auto) 0-4 (0-4) /hpf U Hyaline Cast (Auto) 10-30 H (0-5) /lpf U Epithel Cells (Auto) 0-5 (0-5) /lpf Urine Bacteria (Auto) Negative (Negative) Urine Yeast Budding A (None Prsent) 01/21/19 01/21/19 01/21/19 Range/Units 04:18 04:31 04:31 WBC 10.98 H (4.8-10.8) K/uL RBC 3.38 L (4.2-5.4) M/uL Hgb 9.3 L (12.0-16.0) g/dL Hct 28.7 L (37-47) % MCV 84.9 (80-100) fL MCH 27.5 (25-34) pg MCHC 32.4 (32-36) g/dL RDW Std Deviation 54.3 H (36.4-46.3) fL RDW Coeff of Fercho 17.4 H (11.5-14.5) % Plt Count 361 (130-400) K/uL MPV 8.7 (7.4-10.4) fL Immature Gran % (Auto) 0.3 % Neut % (Auto) 64.0 % Lymph % (Auto) 27.2 % [place] % (Auto) 7.7 % Eos % (Auto) 0.7 % Baso % (Auto) 0.1 % Immature Gran # (Auto) 0.03 H (0.00-0.02) K/uL Neut # (Auto) 7.03 H (1.4-6.5) K/uL Lymph # (Auto) 2.99 (1.2-3.4) K/uL [place] # (Auto) 0.84 H (0.11-0.59) K/uL Eos # (Auto) 0.08 (0-0.5) K/uL Baso # (Auto) 0.01 (0-0.2) K/uL Sodium 132 L (136-145) mmol/L Potassium 3.4 L (3.5-5.1) mmol/L Chloride 97 L (98-107) mmol/L Carbon Dioxide 28 (21-32) mmol/L Anion Gap 7.0 (3-11) BUN 27 H (7-18) mg/dl Creatinine 1.08 (0.6-1.2) mg/dl Est Cr Clr Drug Dosing Not Reportable Est GFR ( Amer) 57.3 Est GFR (Non-Af Amer) 49.5 BUN/Creatinine Ratio 25.2 H (10-20) Glucose 252 H (70-99) mg/dl POC Glucose 171 H (70-99) Lactate (0.4-2.0) mmol/L Calcium 8.0 L (8.5-10.1) mg/dl Total Bilirubin 0.3 (0.2-1) mg/dl Direct Bilirubin < 0.1 (0-0.2) mg/dl AST 12 L (15-37) U/L ALT 14 (12-78) U/L Alkaline Phosphatase 65 (45-117) U/L Troponin I < 0.015 (0-0.045) ng/ml Total Protein 6.5 (6.4-8.2) gm/dl Albumin 2.3 L (3.4-5.0) gm/dl Lipase 55 L (73-393) U/L Procalcitonin (0-0.5) ng/ml Urine Color Urine Appearance (Clear) Urine pH (4.5-7.5) Ur Specific [place] (1.000-1.030) Urine Protein (Negative) Urine Glucose (UA) (Negative) Urine Ketones (Negative) Urine Blood (Negative) Urine Nitrite (Negative) Urine Bilirubin (Negative) Urine Urobilinogen (Negative) Ur Leukocyte Esterase (Negative) Urine WBC (Auto) (0-5) /hpf Urine RBC (Auto) (0-4) /hpf U Hyaline Cast (Auto) (0-5) /lpf U Epithel Cells (Auto) (0-5) /lpf Urine Bacteria (Auto) (Negative) Urine Yeast (None Prsent) 01/21/19 01/21/19 01/21/19 Range/Units 04:36 04:40 04:57 WBC (4.8-10.8) K/uL RBC (4.2-5.4) M/uL Hgb (12.0-16.0) g/dL Hct (37-47) % MCV (80-100) fL MCH (25-34) pg MCHC (32-36) g/dL RDW Std Deviation (36.4-46.3) fL RDW Coeff of Fercho (11.5-14.5) % Plt Count (130-400) K/uL MPV (7.4-10.4) fL Immature Gran % (Auto) % Neut % (Auto) % Lymph % (Auto) % [place] % (Auto) % Eos % (Auto) % Baso % (Auto) % Immature Gran # (Auto) (0.00-0.02) K/uL Neut # (Auto) (1.4-6.5) K/uL Lymph # (Auto) (1.2-3.4) K/uL [place] # (Auto) (0.11-0.59) K/uL Eos # (Auto) (0-0.5) K/uL Baso # (Auto) (0-0.2) K/uL Sodium (136-145) mmol/L Potassium (3.5-5.1) mmol/L Chloride (98-107) mmol/L Carbon Dioxide (21-32) mmol/L Anion Gap (3-11) BUN (7-18) mg/dl Creatinine (0.6-1.2) mg/dl Est Cr Clr Drug Dosing Est GFR ( Amer) Est GFR (Non-Af Amer) BUN/Creatinine Ratio (10-20) Glucose (70-99) mg/dl POC Glucose 226 H 222 H (70-99) Lactate (0.4-2.0) mmol/L Calcium (8.5-10.1) mg/dl Total Bilirubin (0.2-1) mg/dl Direct Bilirubin (0-0.2) mg/dl AST (15-37) U/L ALT (12-78) U/L Alkaline Phosphatase (45-117) U/L Troponin I (0-0.045) ng/ml Total Protein (6.4-8.2) gm/dl Albumin (3.4-5.0) gm/dl Lipase (73-393) U/L Procalcitonin < 0.05 (0-0.5) ng/ml Urine Color Urine Appearance (Clear) Urine pH (4.5-7.5) Ur Specific [place] (1.000-1.030) Urine Protein (Negative) Urine Glucose (UA) (Negative) Urine Ketones (Negative) Urine Blood (Negative) Urine Nitrite (Negative) Urine Bilirubin (Negative) Urine Urobilinogen (Negative) Ur Leukocyte Esterase (Negative) Urine WBC (Auto) (0-5) /hpf Urine RBC (Auto) (0-4) /hpf U Hyaline Cast (Auto) (0-5) /lpf U Epithel Cells (Auto) (0-5) /lpf Urine Bacteria (Auto) (Negative) Urine Yeast (None Prsent) 01/21/19 01/21/19 01/21/19 Range/Units 05:12 06:09 06:46 WBC (4.8-10.8) K/uL RBC (4.2-5.4) M/uL Hgb (12.0-16.0) g/dL Hct (37-47) % MCV (80-100) fL MCH (25-34) pg MCHC (32-36) g/dL RDW Std Deviation (36.4-46.3) fL RDW Coeff of Fercho (11.5-14.5) % Plt Count (130-400) K/uL MPV (7.4-10.4) fL Immature Gran % (Auto) % Neut % (Auto) % Lymph % (Auto) % [place] % (Auto) % Eos % (Auto) % Baso % (Auto) % Immature Gran # (Auto) (0.00-0.02) K/uL Neut # (Auto) (1.4-6.5) K/uL Lymph # (Auto) (1.2-3.4) K/uL [place] # (Auto) (0.11-0.59) K/uL Eos # (Auto) (0-0.5) K/uL Baso # (Auto) (0-0.2) K/uL Sodium (136-145) mmol/L Potassium (3.5-5.1) mmol/L Chloride (98-107) mmol/L Carbon Dioxide (21-32) mmol/L Anion Gap (3-11) BUN (7-18) mg/dl Creatinine (0.6-1.2) mg/dl Est Cr Clr Drug Dosing Est GFR ( Amer) Est GFR (Non-Af Amer) BUN/Creatinine Ratio (10-20) Glucose (70-99) mg/dl POC Glucose 221 H 185 H (70-99) Lactate 1.1 (0.4-2.0) mmol/L Calcium (8.5-10.1) mg/dl Total Bilirubin (0.2-1) mg/dl Direct Bilirubin (0-0.2) mg/dl AST (15-37) U/L ALT (12-78) U/L Alkaline Phosphatase (45-117) U/L Troponin I (0-0.045) ng/ml Total Protein (6.4-8.2) gm/dl Albumin (3.4-5.0) gm/dl Lipase (73-393) U/L Procalcitonin (0-0.5) ng/ml Urine Color Urine Appearance (Clear) Urine pH (4.5-7.5) Ur Specific [place] (1.000-1.030) Urine Protein (Negative) Urine Glucose (UA) (Negative) Urine Ketones (Negative) Urine Blood (Negative) Urine Nitrite (Negative) Urine Bilirubin (Negative) Urine Urobilinogen (Negative) Ur Leukocyte Esterase (Negative) Urine WBC (Auto) (0-5) /hpf Urine RBC (Auto) (0-4) /hpf U Hyaline Cast (Auto) (0-5) /lpf U Epithel Cells (Auto) (0-5) /lpf Urine Bacteria (Auto) (Negative) Urine Yeast (None Prsent) 01/21/19 Range/Units 07:26 WBC (4.8-10.8) K/uL RBC (4.2-5.4) M/uL Hgb (12.0-16.0) g/dL Hct (37-47) % MCV (80-100) fL MCH (25-34) pg MCHC (32-36) g/dL RDW Std Deviation (36.4-46.3) fL RDW Coeff of Fercho (11.5-14.5) % Plt Count (130-400) K/uL MPV (7.4-10.4) fL Immature Gran % (Auto) % Neut % (Auto) % Lymph % (Auto) % [place] % (Auto) % Eos % (Auto) % Baso % (Auto) % Immature Gran # (Auto) (0.00-0.02) K/uL Neut # (Auto) (1.4-6.5) K/uL Lymph # (Auto) (1.2-3.4) K/uL [place] # (Auto) (0.11-0.59) K/uL Eos # (Auto) (0-0.5) K/uL Baso # (Auto) (0-0.2) K/uL Sodium (136-145) mmol/L Potassium (3.5-5.1) mmol/L Chloride (98-107) mmol/L Carbon Dioxide (21-32) mmol/L Anion Gap (3-11) BUN (7-18) mg/dl Creatinine (0.6-1.2) mg/dl Est Cr Clr Drug Dosing Est GFR ( Amer) Est GFR (Non-Af Amer) BUN/Creatinine Ratio (10-20) Glucose (70-99) mg/dl POC Glucose 152 H (70-99) Lactate (0.4-2.0) mmol/L Calcium (8.5-10.1) mg/dl Total Bilirubin (0.2-1) mg/dl Direct Bilirubin (0-0.2) mg/dl AST (15-37) U/L ALT (12-78) U/L Alkaline Phosphatase (45-117) U/L Troponin I (0-0.045) ng/ml Total Protein (6.4-8.2) gm/dl Albumin (3.4-5.0) gm/dl Lipase (73-393) U/L Procalcitonin (0-0.5) ng/ml Urine Color Urine Appearance (Clear) Urine pH (4.5-7.5) Ur Specific [place] (1.000-1.030) Urine Protein (Negative) Urine Glucose (UA) (Negative) Urine Ketones (Negative) Urine Blood (Negative) Urine Nitrite (Negative) Urine Bilirubin (Negative) Urine Urobilinogen (Negative) Ur Leukocyte Esterase (Negative) Urine WBC (Auto) (0-5) /hpf Urine RBC (Auto) (0-4) /hpf U Hyaline Cast (Auto) (0-5) /lpf U Epithel Cells (Auto) (0-5) /lpf Urine Bacteria (Auto) (Negative) Urine Yeast (None Prsent) Administered Medications Aspirin (Ecotrin Ectab) 81 mg PO QAM [facility] Stop: 02/20/19 11:56 Last Admin: 01/21/19 13:20 Dose: 81 mg Documented by: [id number] Collagenase (Santyl) 1 appln TOP DAILY [facility] Stop: 02/20/19 11:56 Last Admin: 01/21/19 13:20 Dose: 1 appln Documented by: [id number] Doxycycline Hyclate (Vibramycin) 100 mg PO BID [facility] Stop: 01/26/19 23:59 Last Admin: 01/21/19 20:47 Dose: 100 mg Documented by: [id number] Admin: 01/21/19 13:20 Dose: 100 mg Documented by: [id number] [facility]ox[facility] ([facility]alta) [facility] [place] Stop: 02/20/19 11:56 Last Admin: 01/21/19 13:21 Dose: 30 mg Documented by: [id number] Heparin Sodium (Porcine) (Heparin Sodium (Porcine)) 5,000 units SQ Q8 [facility] Stop: 02/20/19 13:59 Last Admin: 01/21/19 22:17 Dose: Not Given Documented by: [id number] Admin: 01/21/19 13:22 Dose: 5,000 units Documented by: [id number] Cosigned by: [id number] Sodium Chloride (Nss) 500 mls @ 70 mls/hr IV .Q7H9M [facility] Stop: 01/22/19 00:08 Last Admin: 01/21/19 17:07 Dose: 70 mls/hr Documented by: [id number] Insulin Aspart (Novolog Flexpen) 0 units SC [facility]; Protocol Stop: 02/20/19 16:29 Last Admin: 01/21/19 21:00 Dose: Not Given Documented by: [id number] Cosigned by: [id number] Admin: 01/21/19 17:47 Dose: Not Given Documented by: [id number] Cosigned by: [id number] Loratadine (Claritin) 10 mg PO [facility] Stop: 02/20/19 11:56 Last Admin: 01/21/19 13:22 Dose: 10 mg Documented by: [id number] Prednisone (Prednisone) [facility] [place] Stop: 02/20/19 11:56 Last Admin: 01/21/19 13:22 Dose: 5 mg Documented by: [id number] Quetiapine Fumarate (Seroquel) 50 mg PO [facility] Stop: 02/20/19 11:56 Last Admin: 01/21/19 13:21 Dose: 50 mg Documented by: [id number] Quetiapine Fumarate (Seroquel) 75 mg PO HS [facility] Stop: 02/20/19 20:59 Last Admin: 01/21/19 20:46 Dose: 75 mg Documented by: [id number] Ranitidine HCl (Zantac) 150 mg PO BID [facility] Stop: 02/20/19 11:56 Last Admin: 01/21/19 20:47 Dose: 150 mg Documented by: [id number] Admin: 01/21/19 13:22 Dose: 150 mg Documented by: [id number] Terbinafine HCl (Lamisil) 250 mg PO DAILY [facility] Stop: 02/22/19 00:00 Last Admin: 01/21/19 13:21 Dose: 250 mg Documented by: [id number] Vitamin D (Vitamin D3) 400 units PO QAM [facility] Stop: 02/20/19 11:56 Last Admin: 01/21/19 13:22 Dose: 400 units Documented by: [id number] Discontinued Medications Dextrose (Dextrose 50%) Confirm Administered Dose 50 ml IV .STK-MED ONE Stop: 01/21/19 03:57 Last Admin: 01/21/19 04:03 Dose: 50 ml Documented by: [id number] Sodium Chloride (Nss 1000ml) 500 mls @ 999 mls/hr IV .Q31M ONE Stop: 01/21/19 04:31 Last Infusion: 01/21/19 04:43 Dose: 0 mls/hr Documented by: [id number] Admin: 01/21/19 04:11 Dose: 999 mls/hr Documented by: [id number] Sodium Chloride (Nss 1000ml) 1,000 mls @ 999 mls/hr IV .Q1H1M ONE Stop: 01/21/19 07:16 Last Infusion: 01/21/19 07:36 Dose: 0 mls/hr Documented by: [id number] Admin: 01/21/19 06:19 Dose: 999 mls/hr Documented by: [id number] Ceftriaxone Sodium (Rocephin) 1,000 mg in 50 mls @ 100 mls/hr IV NOW STA Stop: 01/21/19 06:48 Last Infusion: 01/21/19 07:36 Dose: 0 mls/hr Documented by: [id number] Admin: 01/21/19 06:51 Dose: 100 mls/hr Documented by: [id number] Discharge Plan Visit Data *Final* Discharge Date/Time: 01/21/19 11:03 Chief Complaint: Hypoglycemia Stated Complaint: diabetic ED Provider: Celestino Darling Discharge Problem: Hypoglycemia, Weakness, Acute UTI, Acute hypotension, Hypothermia Patient Disposition: Admitted As Inpatient Condition: Fair Discharge Instructions Interventions: ED Discharge Assessment Last Done: 01/21/19 11:03 Discharge Problem: Hypothermia Qualifiers: Encounter type: initial encounter Qualified Code(s): T68.XXXA - Hypothermia, initial encounter The scribe's documentation has been prepared under my direction and personally reviewed by me in its entirety. I confirm that the note above accurately reflects all work, treatment, procedures, and medical decision making performed by me.
--- NOTE | 2019-01-21 06:41 | XRay Report ---
XR chest 1V portable CLINICAL HISTORY: hypoglycemia COMPARISON STUDY: 10/28/2018 FINDINGS: There are postsurgical changes of midline sternotomy. The heart is the upper limits of norm al in size. There is a left subclavian pacer/defibrillator. There is no failure. There is no focal pu lmonary consolidation. There are no pleural effusions.[ IMPRESSION: No active disease in the chest. Electronically signed by: Bryan Sherwood M.D. 01/21/2019 6:39 AM
--- NOTE | 2019-01-21 10:30 | History & Physical Report ---
Date of Service January 21, 2019 Assessment & Plan (1) Hypoglycemia: Hx DM Present on admission with blood sugar in the 30s associated with weakness, Hypothermia Possible related to poor appetite intake Received Levemir 25 units and novolog 11 units last night Received D50 in the ER, BS improves Will hold insulin for now Will consult pharmacy Check HBa1c (2) Weakness: Due to low blood sugar vs infection Blood cx and urine cx pending Continue Rocephin IV for now Check Procalcitonin Fall precaution PT/OT eval (3) Acute hypotension: Possible related to acute illness Received IVF in the ER Will hold diuretic and BP med for now BP improves (4) Chronic systolic heart failure: CXR showed no active disease in the chest. Hold lasix and spironolactone for now due to low BP No sign of fluid overload Continue monitor closely (5) Candidal UTI (urinary tract infection): Continue oral terbinafine (6) PMR (polymyalgia rheumatica): On prednisone daily stable (7) Dementia: Continue seroquel Will hold Lorazepam for now since pt was very lethargy on admission At baseline B/[facility] wanted to get an Xray to r/o osteomylitis Wound nurse consult Will continue doxycycline Will get an xr of both toes DM type 2 Hypoglycemic on admission Will continue to hold levemir and novolg Check Hba1c Continue monitor BS closely DVT px heparin subq Disposition Will discharge back to [facility] when medically stable History of Present Illness Chief Complaint: Hypoglycemia Primary Care Provider: [facility] 78 years old female with past medical history of advanced dementia, dyslipidemia, diabetes, chronic systolic heart failure, PMR status post pacemaker was sent to the ER from [facility] for hypoglycemia and weakness. Due to her Advanced dementia most of the history obtained from staff at [facility]. As per staff for the last 2 days patient has been having low appetite. Staff said that yesterday she did not eat much. Her Blood sugar last night was in the 90s and received Levemir and 11 units of NovoLog last night. This morning patient was very sleepy to wake up and her blood sugar was 28 as per [facility] staff. Staff said at baseline patient usually uses a walker to ambulate. In the ER blood sugar was 30 with low blood pressure with systolic as low as 78/48. She received D50 and IV fluid. Blood sugar and blood pressure improved. Currently patient is awake. Denies any chest pain, palpitation, dizziness, and shortness of breath. Allergies Allergy/AdvReac Type Severity Reaction Status Date / Time Bactrim Allergy Unknown . Verified 09/05/17 16:36 lisinopril Allergy Unknown Unknown Verified 01/21/19 04:26 Penicillins Allergy Unknown ON Verified 01/21/19 04:26 ELMCROFT LIST sulfamethoxazole Allergy Unknown ON Verified 01/21/19 04:26 ELMCROFT LIST trimethoprim Allergy Unknown ON Verified 01/21/19 04:26 ELMCROFT LIST atorvastatin AdvReac Intermediate MUSCLE PAIN Verified 01/21/19 04:26 capsaicin AdvReac Intermediate N/V Verified 01/21/19 04:26 diclofenac AdvReac Intermediate N/V Verified 01/21/19 04:26 Diclopak AdvReac Intermediate N/V Verified 09/05/17 13:27 rosuvastatin AdvReac Intermediate MUSCLE PAIN Verified 01/21/19 04:26 fenofibrate AdvReac Mild SORE MOUTH Verified 01/16/19 13:10 Home Medications Home Medications Medication Instructions Recorded Confirmed Type Levemir FlexTouch U-100 Insuln 25 unit SUBCUT HS 12/22/17 01/21/19 History acetaminophen [Acetaminophen Extra 1,000 mg PO Q8H PRN 12/22/17 01/21/19 History Strength] aspirin [Aspirin Low Dose] 81 mg PO QAM 12/22/17 01/21/19 History carvedilol 12.5 mg PO BID 12/22/17 01/21/19 History cholecalciferol (vitamin D3) 400 unit PO QAM 12/22/17 01/21/19 History fluticasone propionate 1 spray INTRANASAL QAM 12/22/17 01/21/19 History gabapentin 100 mg PO BID 12/22/17 01/21/19 History loratadine 10 mg PO QAM 12/22/17 01/21/19 History ranitidine HCl 150 mg PO BID 12/22/17 01/21/19 History tolterodine [Detrol] 1 mg PO HS 12/22/17 01/21/19 History duloxetine 30 mg PO QAM 09/10/18 01/21/19 History lorazepam 0.5 mg PO TID PRN 09/10/18 01/21/19 History losartan 25 mg PO QAM 09/10/18 01/21/19 History melatonin 3 mg PO HS 09/10/18 01/21/19 History quetiapine 50 mg PO QAM 09/10/18 01/21/19 History quetiapine 75 mg PO HS 09/10/18 01/21/19 History furosemide 40 mg PO QAM #30 tab 09/15/18 01/21/19 Rx spironolactone 25 mg PO QAM #30 tab 09/15/18 01/21/19 Rx Novolog Flexpen U-100 Insulin 9 unit SUBCUT QAM 10/26/18 01/21/19 History One-A-Day Women's 50 Plus 1 tab PO QAM 10/26/18 01/21/19 History Novolog Flexpen U-100 Insulin 11 unit SUBCUT QDD 10/28/18 01/21/19 History butalbital 50 mg-acetaminophen 325 1 cap PO Q4H PRN cap 11/23/18 01/21/19 History mg-caffeine 40 mg-codeine 30 mg cap prednisone 5 mg PO QAM 12/22/18 01/21/19 History collagenase clostridium 1 applic TOP DAILY 30 Days #30 gm 01/10/19 01/21/19 Rx histolyticum 250 unit/gram topical ointment doxycycline hyclate 100 mg tablet 100 mg PO bid #28 tab 01/12/19 01/21/19 Rx nystatin 1 applic TOPICAL DIRECTED 01/21/19 01/21/19 History terbinafine HCl 250 mg PO DAILY 01/21/19 01/21/19 History Past Med/Surg History Medical History Hypoglycemia (Acute) Weakness (Acute) Acute UTI (Acute) Acute hypotension (Acute) Hypothermia (Acute) Chronic systolic heart failure Candidal UTI (urinary tract infection) DVT prophylaxis PMR (polymyalgia rheumatica) Dementia Leukocytosis Hyperglycemia (Acute) HTN (hypertension) (Chronic) GERD (gastroesophageal reflux disease) (Chronic) PVD (peripheral vascular disease) (Chronic) ICD (implantable cardioverter-defibrillator) in place (Chronic) Pacemaker (Chronic) Osteomyelitis (Acute) Diabetic foot ulcer associated with type 2 diabetes mellitus (Acute) Dementia (Chronic 11/01/12) Coronary artery disease (Chronic) "s/p [place]" Systolic CHF, chronic (Chronic) "ischemic cardiomyopathy" History of bradycardia (Chronic) Ambulatory dysfunction (Chronic) Diabetes mellitus, type 2 (Chronic) Statin intolerance (Chronic) RADHA inhibitor intolerance (Chronic) PMR (polymyalgia rheumatica) (Chronic) Carotid arterial disease (Chronic) Chest pain Outbursts of anger (Acute) Dementia Surgical History Status post coronary artery bypass grafting (Chronic) Status post cardiac pacemaker procedure (Chronic) Status post cataract extraction (Chronic) Status post tubal ligation (Chronic) Family History Other No significant family history Social History Preferred Language: Tristanian Communication Ability: Impaired Director 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 Beliefs That Will Affect Care: None marital status: / Current Living Situation: Personal Care Facility Current Living Situation Comment: [facility] dementia unit current occupational status: retired Feels Safe at Home: Yes Smoking Status: Never smoker Second Hand Exposure: No ; Hx Alcohol Use: No Hx Substance Use: No Review of Systems Review of Systems: All systems reviewed & are unremarkable except as noted in HPI & below Physical Exam Physical Exam: General- No acute distress, advanced dementia Head- atraumatic Eyes- PERRL, EOMI, ENT- oropharynx clear Neck- supple, no JVD Lungs- No lung wheezing and crackle Heart- regular rhythm; no murmur Abdomen- normal bowel sounds, soft, nontender Extremities- no calf tenderness, wound in both big toes with demarcated, no drainage or pus Neuro- alert, awake, PERRL, EOMI; no facial palsy; no dysarthria, advanced dementia Skin- warm & dry Results & Data Vital Signs (Past 12 Hours) Vital Signs Temp Pulse Pulse Resp BP BP Pulse Ox 01/21/19 09:37 37.1 C 82 20 102/50 L 97 01/21/19 09:00 82 16 111/54 L 97 01/21/19 08:46 36.9 C 78 16 109/52 L 99 01/21/19 08:28 36.8 C 88 20 89/52 L 100 01/21/19 07:28 36.3 C L 84 21 109/51 L 95 01/21/19 06:52 69 24 93/50 L 95 01/21/19 06:30 69 18 95/47 L 94 01/21/19 06:18 72 23 97/51 L 94 01/21/19 06:15 72 23 78/48 L 84 L 01/21/19 06:08 72 20 93/52 L 95 01/21/19 05:50 74 17 96/55 L 96 01/21/19 05:16 68 15 97/67 L 99 01/21/19 05:11 70 19 105/50 L 96 01/21/19 05:08 34.5 C L 01/21/19 04:46 68 16 103/61 100 01/21/19 04:30 88 15 119/63 100 01/21/19 04:28 85 20 133/71 100 01/21/19 03:50 34.8 C L 89 18 90/53 L 93 Diagnostic Findings XR chest 1V portable CLINICAL HISTORY: hypoglycemia COMPARISON STUDY: 10/28/2018 FINDINGS: There are postsurgical changes of midline sternotomy. The heart is the upper limits of normal in size. There is a left subclavian pacer/defibrillator. There is no failure. There is no focal pulmonary consolidation. There are no pleural effusions.[ IMPRESSION: No active disease in the chest. Electronically signed by: Bryan Shewrood M.D. 01/21/2019 6:39 AM Dictated: 01/21/19638 Transcribed: 01/21/19638
[2019-01-21] MEDS ORDERED: ACETAMINOPHEN 500 MG TAB PO PRN (11:57)
[2019-01-21] MEDS ORDERED: PHARMACY GLYCEMIC MGMT CONSULT SCH (12:08)
[2019-01-21] MEDS: DOXYCYCLINE HYCLATE 100 MG CAP PO SCH ×2 (13:20→20:47)
[2019-01-21] MEDS: COLLAGENASE OINT 30 GM TUBE TOP SCH (13:20)
[2019-01-21] MEDS: ASPIRIN 81 MG ECTAB PO SCH (13:20)
[2019-01-21] MEDS: terbinafine HCL 250 MG TAB PO SCH (13:21)
[2019-01-21] MEDS: QUETIAPINE FUMARATE 25 MG TABLET PO SCH ×2 (13:21→20:46)
[2019-01-21] MEDS: DULOXETINE HCL 30 MG CAP PO SCH (13:21)
[2019-01-21] MEDS: CHOLECALCIFEROL (VITAMIN D) 400 UNITS TABLET PO SCH (13:22)
[2019-01-21] MEDS: predniSONE 5 MG TAB PO SCH (13:22)
[2019-01-21] MEDS: HEPARIN SOD 5,000 UNIT/0.5 ML VIAL SQ SCH ×2 (13:22→22:17)
[2019-01-21] MEDS: LORATADINE 10 MG TAB PO SCH (13:22)
--- NOTE | 2019-01-21 13:35 | Pharmacy Report ---
Glycemic Control Consultation - Date of Service January 21, 2019 - Scope Scope: Glycemic Pharmacist consulted by Dr Iqbal on 01/21 for glycemic control and to write orders per [facility] inpatient glycemic control protocol - Objective Weight: 54.7 kg Accuchecks BSG (last 24hrs): 01/21/19 01/21/19 01/21/19 03:55 03:56 04:18 Glucose POC Glucose 30 L* 36 L* 171 H 01/21/19 01/21/19 01/21/19 04:31 04:40 04:57 Glucose 252 H POC Glucose 226 H 222 H 01/21/19 01/21/19 01/21/19 05:12 06:09 07:26 Glucose POC Glucose 221 H 185 H 152 H 01/21/19 01/21/19 09:36 12:12 Glucose POC Glucose 101 H 89 Laboratory Data (last 24hrs): 01/21/19 04:31 Potassium 3.4 L Carbon Dioxide 28 Anion Gap 7.0 Creatinine 1.08 Est Cr Clr Drug Dosing Not Reportable - Recent Pertinent Medications Outpatient Anti-diabetic Regimen: * Levemir 25 hs, novolog 9 qam, 11 qdd * A1c = 11.3% 12/14/18 Risk Factors for Insulin Resistance: * Diet: T2DM - Assessment & Plan Assessment & Plan: ASSESSMENT: * 78 year old with hypoglycemia on admission, BSGs in the 30s. Given amp of dextrose BSGs trending back up, however still appear to be trending down. At lunchtime BSG is 89 mg/dL. Nurse states patient did have some breakfast and some lunch but very minimal * Per provider notes, patient did take her normal Levemir dose of 25 units last evening and 11 of novolog. Her BSGs were in the 90s at that time. Patient has been having low appetite x 2 days * Will hold further basal insulin until BSGs start to trend up. Will add loosen novolog scale with no CR PLAN FOR INPATIENT GLYCEMIC CONTROL: * Basal insulin * Lantus - hold * Bolus insulin * NovoLog per scale ACHS or Q6hrs while NPO * Goal Range: Low 120 mg/dL - High 160 mg/dL * Correction Factor: 45 mg/dL/unit * Nutritional / Prandial insulin per carb ratio of 1 unit per -- grams CHO consumed * Please note that the plan above was derived based on current level of insulin resistance and hospital stress. These recommendations are appropriate for inpatient admission only. Plan of care upon discharge will need to be reassessed to avoid potential outpatient hypo/hyperglycemia. Thank you.
--- NOTE | 2019-01-21 14:18 | XRay Report ---
Left great toe 3 VIEWS CLINICAL HISTORY: Infection. Possible osteomyelitis. COMPARISON: X-rays foot dated 01/16/2019 DISCUSSION: There is soft tissue swelling. No acute fractures are visualized. There is a small dorsal spur arising from the tuft of the distal phalanx. There are no definite destructive changes. If rayna cated, an MRI could be obtained in follow-up as this is more sensitive for the detection of osteomyel itis IMPRESSION: 1. Soft tissue swelling 2. No acute fractures 3. No conventional radiographic evidence of osteomyelitis Electronically signed by: Byran Sherwood M.D. 01/21/2019 2:16 PM
--- NOTE | 2019-01-21 14:20 | XRay Report ---
RIGHT GREAT TOE 3 VIEWS CLINICAL HISTORY: Infection. Possible osteomyelitis. COMPARISON: X-ray of the foot dated 01/16/2019 DISCUSSION: There is fragmentation and erosive changes involving the distal aspect of the proximal ph alanx. In the absence of a traumatic history, the findings are consistent with osteomyelitis. Correla tion with clinical findings and prior history will be necessary. IMPRESSION: 1. There is persistent fragmentation and erosive changes involving the distal aspect of the proximal phalanx. In the absence of a traumatic history, the findings are consistent with osteomyelitis. Corre lation with clinical findings and prior history will be necessary. Electronically signed by: Bryan Sherwood M.D. 01/21/2019 2:19 PM
[2019-01-21] MEDS ORDERED: SODIUM CHLORIDE 0.9% 500 ML IV SCH (17:00)
[2019-01-21] MEDS: INSULIN ASPART 100 UNITS/ML 3 ML PEN SC SCH ×2 (17:47→21:00)
[2019-01-22 06:09] LABS: Hematocrit (blood only) 26.7 % (37-47); Hemoglobin 8.7 g/dL (12.0-16.0); Mean Corpuscular Hemoglobin 27.7 pg (25-34); Mean Corpuscular Hgb Conc 32.6 g/dL (32-36); Platelet Count 353 K/uL (130-400); RDW Coefficient of Variation 17.7 % (11.5-14.5); RDW Standard Deviation 55.5 fL (36.4-46.3); Red Blood Count 3.14 M/uL (4.2-5.4); White Blood Count 12.19 K/uL (4.8-10.8)
[2019-01-22] MEDS: HEPARIN SOD 5,000 UNIT/0.5 ML VIAL SQ SCH ×3 (06:11→20:17)
[2019-01-22] MEDS: cefTRIAXone SODIUM 1,000 MG in DEXTROSE 5% 50 ML IV SCH (06:13)
[2019-01-22 06:44] LABS: BUN Creatinine Ratio 20.8 (10-20); Calcium 8.2 mg/dl (8.5-10.1); Creatinine Clr Calc Pharmacy 40.8 ml/min; Est GFR (African American) 77.7; Potassium 3.8 mmol/L (3.5-5.1)
[2019-01-22 07:19] LABS: Estimated Average Glucose 194 mg/dl; Hemoglobin A1C 8.4 % (4.5-5.6)
[2019-01-22] MEDS: INSULIN ASPART 100 UNITS/ML 3 ML PEN SC SCH ×4 (08:55→20:15)
[2019-01-22] MEDS: DULOXETINE HCL 30 MG CAP PO SCH (08:56)
[2019-01-22] MEDS: QUETIAPINE FUMARATE 25 MG TABLET PO SCH ×2 (08:56→20:18)
[2019-01-22] MEDS: predniSONE 5 MG TAB PO SCH (08:56)
[2019-01-22] MEDS: DOXYCYCLINE HYCLATE 100 MG CAP PO SCH ×2 (08:56→20:18)
[2019-01-22] MEDS: LORATADINE 10 MG TAB PO SCH (08:56)
[2019-01-22] MEDS: ASPIRIN 81 MG ECTAB PO SCH (08:56)
[2019-01-22] MEDS: CHOLECALCIFEROL (VITAMIN D) 400 UNITS TABLET PO SCH (08:56)
[2019-01-22] MEDS: terbinafine HCL 250 MG TAB PO SCH (08:57)
[2019-01-22] MEDS: COLLAGENASE OINT 30 GM TUBE TOP SCH ×2 (08:57→18:39)
--- NOTE | 2019-01-22 10:18 | Infectious Disease Consult ---
Date of Consultation January 22, 2019 Assessment & Plan (1) Osteomyelitis: continue abx, follow culture results, blood and urine culture pending, wound care eval. History of Present Illness Attending Physician: Awa Iqbal MD pt admitted with low blood sugar and weakness from snf. has dementia, unable to provide ros. was on doxy prior to admission, does follow at wound center, does not follow with ID there. afebrile since admission. wbc 12, creat 0.8. UA >30 wbc, no bacteria, yeast noted, unable to review if gu symptoms. ID consulted for foot ulcer, right foot osteo showing osteo, culture from right foot in November grew yeast. left foot x ray negative, culture on 01/16 grew Serritia, peguero sensitive and MRSA - being treated with doxy by wound center. CXR negative. continued on po doxy and ctx added. Allergies Allergy/AdvReac Type Severity Reaction Status Date / Time Bactrim Allergy Unknown . Verified 09/05/17 16:36 lisinopril Allergy Unknown Unknown Verified 01/21/19 04:26 Penicillins Allergy Unknown ON Verified 01/21/19 04:26 ELMCROFT LIST sulfamethoxazole Allergy Unknown ON Verified 01/21/19 04:26 ELMCROFT LIST trimethoprim Allergy Unknown ON Verified 01/21/19 04:26 ELMCROFT LIST atorvastatin AdvReac Intermediate MUSCLE PAIN Verified 01/21/19 04:26 capsaicin AdvReac Intermediate N/V Verified 01/21/19 04:26 diclofenac AdvReac Intermediate N/V Verified 01/21/19 04:26 Diclopak AdvReac Intermediate N/V Verified 09/05/17 13:27 rosuvastatin AdvReac Intermediate MUSCLE PAIN Verified 01/21/19 04:26 fenofibrate AdvReac Mild SORE MOUTH Verified 01/16/19 13:10 Home Medications Home Medications Medication Instructions Recorded Confirmed Type Levemir FlexTouch U-100 Insuln 25 unit SUBCUT HS 12/22/17 01/21/19 History acetaminophen [Acetaminophen Extra 1,000 mg PO Q8H PRN 12/22/17 01/21/19 History Strength] aspirin [Aspirin Low Dose] 81 mg PO QAM 12/22/17 01/21/19 History carvedilol 12.5 mg PO BID 12/22/17 01/21/19 History cholecalciferol (vitamin D3) 400 unit PO QAM 12/22/17 01/21/19 History fluticasone propionate 1 spray INTRANASAL QAM 12/22/17 01/21/19 History gabapentin 100 mg PO BID 12/22/17 01/21/19 History loratadine 10 mg PO QAM 12/22/17 01/21/19 History ranitidine HCl 150 mg PO BID 12/22/17 01/21/19 History tolterodine [Detrol] 1 mg PO HS 12/22/17 01/21/19 History duloxetine 30 mg PO QAM 09/10/18 01/21/19 History lorazepam 0.5 mg PO TID PRN 09/10/18 01/21/19 History losartan 25 mg PO QAM 09/10/18 01/21/19 History melatonin 3 mg PO HS 09/10/18 01/21/19 History quetiapine 50 mg PO QAM 09/10/18 01/21/19 History quetiapine 75 mg PO HS 09/10/18 01/21/19 History furosemide 40 mg PO QAM #30 tab 09/15/18 01/21/19 Rx spironolactone 25 mg PO QAM #30 tab 09/15/18 01/21/19 Rx Novolog Flexpen U-100 Insulin 9 unit SUBCUT QAM 10/26/18 01/21/19 History One-A-Day Women's 50 Plus 1 tab PO QAM 10/26/18 01/21/19 History Novolog Flexpen U-100 Insulin 11 unit SUBCUT QDD 10/28/18 01/21/19 History butalbital 50 mg-acetaminophen 325 1 cap PO Q4H PRN cap 11/23/18 01/21/19 History mg-caffeine 40 mg-codeine 30 mg cap prednisone 5 mg PO QAM 12/22/18 01/21/19 History collagenase clostridium 1 applic TOP DAILY 30 Days #30 gm 01/10/19 01/21/19 Rx histolyticum 250 unit/gram topical ointment doxycycline hyclate 100 mg tablet 100 mg PO bid #28 tab 01/12/19 01/21/19 Rx nystatin 1 applic TOPICAL DIRECTED 01/21/19 01/21/19 History terbinafine HCl 250 mg PO DAILY 01/21/19 01/21/19 History Patient History Medical History Hypoglycemia (Acute) Weakness (Acute) Acute UTI (Acute) Acute hypotension (Acute) Hypothermia (Acute) Chronic systolic heart failure Candidal UTI (urinary tract infection) DVT prophylaxis PMR (polymyalgia rheumatica) Dementia Leukocytosis Hyperglycemia (Acute) HTN (hypertension) (Chronic) GERD (gastroesophageal reflux disease) (Chronic) PVD (peripheral vascular disease) (Chronic) ICD (implantable cardioverter-defibrillator) in place (Chronic) Pacemaker (Chronic) Osteomyelitis (Acute) Diabetic foot ulcer associated with type 2 diabetes mellitus (Acute) Dementia (Chronic 11/01/12) Coronary artery disease (Chronic) "s/p [place]" Systolic CHF, chronic (Chronic) "ischemic cardiomyopathy" History of bradycardia (Chronic) Ambulatory dysfunction (Chronic) Diabetes mellitus, type 2 (Chronic) Statin intolerance (Chronic) RADHA inhibitor intolerance (Chronic) PMR (polymyalgia rheumatica) (Chronic) Carotid arterial disease (Chronic) Chest pain Outbursts of anger (Acute) Dementia Surgical History Status post coronary artery bypass grafting (Chronic) Status post cardiac pacemaker procedure (Chronic) Status post cataract extraction (Chronic) Status post tubal ligation (Chronic) Family History Other No significant family history Social History Preferred Language: Algerian Communication Ability: Impaired 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 Beliefs That Will Affect Care: None marital status: / Current Living Situation: Personal Care Facility Current Living Situation Comment: [facility] dementia unit current occupational status: retired Other Information That Helps Us Care for You: No Feels Safe at Home: Yes Safety Concerns: Feels Safe At This Time Smoking Status: Never smoker Do You Dip or Chew Tobacco: No ; Second Hand Exposure: No ; Tobacco Cessation Education Requested by Patient: No Hx Alcohol Use: No Hx Substance Use: No Review of Systems Review of Systems: Unobtainable due to cognitive status Physical Exam Constitutional: WD/WN, vitals as above Eyes: PERRL, conjunctivae normal, anicteric sclerae ENMT: external ear and nose normal, oropharynx normal Neck: normal visual inspection Respiratory: normal respiratory effort, lungs clear to auscultation Cardiovascular: RRR, no murmur, no edema Gastrointestinal (Abdomen): normal bowel sounds, soft, nontender, no hepatosplenomegaly Musculoskeletal: no cyanosis or clubbing, extremities motor strength 5/5 Skin: no rashes, warm and dry Psychiatric: Orientation: alert Results & Data Vital Signs (Past 12 Hours) Vital Signs Temp Pulse Pulse Resp BP BP Pulse Ox 01/22/19 08:07 37.2 C 86 14 126/84 126/84 100 01/22/19 04:00 37.2 C 93 H 20 126/64 99 01/22/19 02:43 80 01/21/19 23:00 36.5 C 83 20 113/61 96 PG Care Time/CCT Total # of Minutes Spent Total Time Spent with Patient: Total time spent is greater than 50% in coordination of care (as documented) at patient's floor/unit and/or counseling patient: (1) Osteomyelitis Laterality: right Osteomyelitis location: foot Osteomyelitis type: unspecified type Qualified Code(s): M86.9 - Osteomyelitis, unspecified
--- NOTE | 2019-01-22 11:26 | Pharmacy Report ---
Pharmacy Glycemic Short Note 2 - Date of Service January 22, 2019 - Glycemic Short BSG Results (Last 24 hours): 01/21/19 01/21/19 01/21/19 12:12 16:43 20:55 Glucose POC Glucose 89 89 171 H 01/21/19 01/22/19 01/22/19 20:57 05:33 08:04 Glucose 108 H POC Glucose 157 H 121 H OUTPATIENT ANTIDIABETIC REGIMEN: * Levemir 25 units qHS * Novolog 9 units qAM, 11 units with dinner * A1c 8.4% on 01/22/19 (down from 11.3% on 12/14/18) ASSESSMENT: 01/22 * Angela received zero insulin yesterday and BSGs have remained < 180 mg/dL * Her A1c is down significantly from last month so I suspect outpatient regimen is too high * Fasting BSG = 108 mg/dL; will continue to hold off on basal dose * Postprandial BSGs increased after dinner last night; will add back a conservative carb ratio. Note: she did not receive any coverage for breakfast but it was noted that she ate 75% of her meal; therefore, her pre-lunch BSG was elevated. 01/21 * 78 year old with hypoglycemia on admission, BSGs in the 30s. Given amp of dextrose BSGs trending back up, however still appear to be trending down. At lunchtime BSG is 89 mg/dL. Nurse states patient did have some breakfast and some lunch but very minimal * Per provider notes, patient did take her normal Levemir dose of 25 units last evening and 11 of novolog. Her BSGs were in the 90s at that time. Patient has been having low appetite x 2 days * Will hold further basal insulin until BSGs start to trend up. Will add loosen novolog scale with no CR PLAN FOR INPATIENT GLYCEMIC CONTROL: * Basal insulin - continue to hold for now * Bolus insulin - add CR * NovoLog per scale ACHS or Q6hrs while NPO * Goal Range: Low 120 mg/dL - High 160 mg/dL * Correction Factor: 40 mg/dL/unit * Nutritional / Prandial insulin per carb ratio of 1 unit per 20 grams CHO consumed PLAN FOR DISCHARGE: * to be determined * Suspect outpatient insulin regimen to be too high and will need adjusted
--- NOTE | 2019-01-22 19:52 | Hospitalist Progress Note ---
Date of Service January 22, 2019 Assessment & Plan (1) Hypoglycemia: DM type 2 Present on admission with blood sugar in the 30s associated with weakness, Hypothermia Possible related to poor appetite intake Received Levemir 25 units and novolog 11 units norma the night before admitted Received D50 in the ER, BS improves Most recent Hba1c 8.4 (01/22/19) compare to 11.3 on 12/14/18 Pharmacy on board recommended to hold Levemir Will need to decrease dose of insulin on discharge (2) Weakness: Due to low blood sugar vs infection Blood cx no growth so far Urine cx grew pin-point Continue Rocephin IV for now Procalcitonin normal Fall precaution PT/OT eval (3) Acute hypotension: Possible related to acute illness Received IVF in the ER Will resume diuretic in am BP improves (4) Chronic systolic heart failure: CXR showed no active disease in the chest. will resume lasix in am spironolactone will be on hold No sign of fluid overload Continue monitor closely (5) Candidal UTI (urinary tract infection): Continue oral terbinafine (6) PMR (polymyalgia rheumatica): On prednisone daily stable (7) Dementia: Continue seroquel Consider to decrease Lorazepam on discharge Clinically stable Osteomyelitis Right great toes B/L Big Toes Wound Xray showed persistent fragmentation and erosive changes involving the distal aspect of the proximal phalanx. In the absence of a traumatic history, the findings are consistent with osteomyelitis. Xray of Left great toe showed no conventional radiographic evidence of osteomyelitis Case discussed with ID and recommended to continue doxycycline Continue daily wound care wound care nurse on board Follow up with the wound care clinic DM type 2 Hypoglycemic on admission Continue to hold levemir Hba1c 8.4 (01/22/19) Continue monitor BS closely Will lower decrease Levemir on discharge DVT px heparin subq Disposition Will discharge back to [facility] when medically stable Subjective Pt was seen and examined Lying in bed with no distress Looks more awake today Denies any chest pain, palpitation and SOB Physical Exam Physical Exam: General- No acute distress, advanced dementia Head- atraumatic Eyes- PERRL, EOMI, ENT- oropharynx clear Neck- supple, no JVD Lungs- No lung wheezing and crackle Heart- regular rhythm; no murmur Abdomen- normal bowel sounds, soft, nontender Extremities- no calf tenderness, wound in both big toes with no drainage or pus Neuro- alert, awake, PERRL, EOMI; no facial palsy; no dysarthria, advanced dementia Skin- warm & dry Results & Data Vital Signs (Past 12 Hours) Vital Signs Temp Pulse Resp BP BP Pulse Ox 01/22/19 19:25 36.9 C 79 18 123/69 97 01/22/19 14:54 37.1 C 80 20 121/74 99 01/22/19 11:57 37 C 77 20 120/70 98 01/22/19 08:07 37.2 C 86 14 126/84 126/84 100
[2019-01-23] MEDS: cefTRIAXone SODIUM 1,000 MG in DEXTROSE 5% 50 ML IV SCH (06:36)
[2019-01-23] MEDS: HEPARIN SOD 5,000 UNIT/0.5 ML VIAL SQ SCH ×3 (06:37→20:46)
[2019-01-23] MEDS: terbinafine HCL 250 MG TAB PO SCH (08:17)
[2019-01-23] MEDS: CHOLECALCIFEROL (VITAMIN D) 400 UNITS TABLET PO SCH (08:17)
[2019-01-23] MEDS: predniSONE 5 MG TAB PO SCH (08:18)
[2019-01-23] MEDS: FUROSEMIDE 40 MG TAB PO SCH (08:18)
[2019-01-23] MEDS: DULOXETINE HCL 30 MG CAP PO SCH (08:18)
[2019-01-23] MEDS: LORATADINE 10 MG TAB PO SCH (08:18)
[2019-01-23] MEDS: QUETIAPINE FUMARATE 25 MG TABLET PO SCH ×2 (08:18→20:44)
[2019-01-23] MEDS: COLLAGENASE OINT 30 GM TUBE TOP SCH (08:19)
[2019-01-23] MEDS: DOXYCYCLINE HYCLATE 100 MG CAP PO SCH ×2 (08:20→20:45)
[2019-01-23] MEDS: ASPIRIN 81 MG ECTAB PO SCH (08:20)
[2019-01-23] MEDS: INSULIN ASPART 100 UNITS/ML 3 ML PEN SC SCH ×4 (08:28→20:43)
[2019-01-23] MEDS ORDERED: INSULIN DETEMIR FLEXPEN/FLEX TOUCH 100 UNITS/ML 3ML SC ONE (09:00)
--- NOTE | 2019-01-23 09:26 | Pharmacy Report ---
Pharmacy Glycemic Short Note 2 - Date of Service January 23, 2019 - Glycemic Short BSG Results (Last 24 hours): 01/22/19 01/22/19 01/22/19 12:10 16:33 20:03 POC Glucose 191 H 201 H 199 H 01/23/19 07:30 POC Glucose 177 H OUTPATIENT ANTIDIABETIC REGIMEN: * Levemir 25 units qHS * Novolog 9 units qAM, 11 units with dinner * A1c 8.4% on 01/22/19 (down from 11.3% on 12/14/18) ASSESSMENT: 01/23 * Patient received 6 units of insulin yesterday (0 basal) * BSGs ranging 108-201 mg/dL yesterday - will tighten CR/CF * Fasting BSG this morning of 177 mg/dL - will restart basal insulin today * Will be conservative with adjustments given presentation of hypoglycemia 01/22 * Angela received zero insulin yesterday and BSGs have remained < 180 mg/dL * Her A1c is down significantly from last month so I suspect outpatient regimen is too high * Fasting BSG = 108 mg/dL; will continue to hold off on basal dose * Postprandial BSGs increased after dinner last night; will add back a conservat milan carb ratio. Note: she did not receive any coverage for breakfast but it was noted that she ate 75% of her meal; therefore, her pre-lunch BSG was elevated. 01/21 * 78 year old with hypoglycemia on admission, BSGs in the 30s. Given amp of dextrose BSGs trending back up, however still appear to be trending down. At lunchtime BSG is 89 mg/dL. Nurse states patient did have some breakfast and some lunch but very minimal * Per provider notes, patient did take her normal Levemir dose of 25 units last evening and 11 of novolog. Her BSGs were in the 90s at that time. Patient has been having low appetite x 2 days * Will hold further basal insulin until BSGs start to trend up. Will add loosen novolog scale with no CR PLAN FOR INPATIENT GLYCEMIC CONTROL: * Basal insulin - initiate Levemir 8 units this morning * Bolus insulin - tighten CF/CR * NovoLog per scale ACHS or Q6hrs while NPO * Goal Range: Low 120 mg/dL - High 160 mg/dL * Correction Factor: 35 mg/dL/unit * Nutritional / Prandial insulin per carb ratio of 1 unit per 10 grams CHO consumed PLAN FOR DISCHARGE: * To be determined * Suspect outpatient insulin regimen to be too high and will need adjusted * Based on significant reduction in A1c over one month period and initial presentation with hypoglycemia
[2019-01-23 09:52] LABS: Hematocrit (blood only) 29.5 % (37-47); Hemoglobin 9.3 g/dL (12.0-16.0); Mean Corpuscular Hemoglobin 27.1 pg (25-34); Mean Corpuscular Hgb Conc 31.5 g/dL (32-36); Mean Platelet Volume 8.9 fL (7.4-10.4); Platelet Count 367 K/uL (130-400); RDW Coefficient of Variation 17.6 % (11.5-14.5); RDW Standard Deviation 55.7 fL (36.4-46.3); Red Blood Count 3.43 M/uL (4.2-5.4); White Blood Count 8.52 K/uL (4.8-10.8)
[2019-01-23 10:21] LABS: BUN Creatinine Ratio 16.7 (10-20); Calcium 8.9 mg/dl (8.5-10.1); Creatinine Clr Calc Pharmacy 34.2 ml/min; Est GFR (African American) 63.7; Potassium 3.9 mmol/L (3.5-5.1)
--- NOTE | 2019-01-23 14:08 | Infectious Disease Progress Nt ---
Date of Service January 23, 2019 Assessment & Plan (1) Osteomyelitis: continue doxy, will stop rocephin, clinically stable. would not treat yeast in urine at this time. continue local care. ok for d/c from ID standpoint Subjective pt urine culture growing 70,000 yeast. blood cultures negative, remains on doxy, toleraitng well. afebrile. wbc 8 Results & Data Vital Signs (Past 12 Hours) Vital Signs Temp Pulse Resp BP Pulse Ox 01/23/19 08:17 36.5 C 75 17 144/75 H 97 Laboratory Results Microbiology 01/21/19 04:06 Urine,Straight Cath Urine Culture - Preliminary Yeast not Katie albicans 01/21/19 06:40 Blood Aerobic Blood Culture - Preliminary No growth in Aerobic bottle after 48 hours. 01/21/19 06:40 Blood Anaerobic Blood Culture - Preliminary No growth in Anaerobic bottle after 48 hours. 01/21/19 06:46 Blood Aerobic Blood Culture - Preliminary No growth in Aerobic bottle after 48 hours. 01/21/19 06:46 Blood Anaerobic Blood Culture - Preliminary No growth in Anaerobic bottle after 48 hours. PG Care Time/CCT Total # of Minutes Spent Total Time Spent with Patient: Total time spent is greater than 50% in coordination of care (as documented) at patient's floor/unit and/or counseling patient: (1) Osteomyelitis Laterality: right Osteomyelitis location: foot Osteomyelitis type: unspecified type Qualified Code(s): M86.9 - Osteomyelitis, unspecified
--- NOTE | 2019-01-23 17:18 | Hospitalist Progress Note ---
Date of Service January 23, 2019 Assessment & Plan (1) Hypoglycemia: DM type 2 Present on admission with blood sugar in the 30s associated with weakness, Hypothermia Possible related to poor appetite intake Received Levemir 25 units and novolog 11 units norma the night before admitted Received D50 in the ER, BS improves Most recent Hba1c 8.4 (01/22/19) compare to 11.3 on 12/14/18 Pharmacy on board for glycemic management Will need to decrease dose of insulin on discharge Starting on Levemir 8 unit daily Monitor BS glosely (2) Weakness: Due to low blood sugar vs infection Blood cx no growth so far Urine cx grew yeast Will d/c Rocephin IV Procalcitonin normal Fall precaution Continue PT/OT eval (3) Acute hypotension: Possible related to acute illness Received IVF in the ER Will resume diuretic in am BP improves (4) Chronic systolic heart failure: CXR showed no active disease in the chest. Continue Lasix 40 mg daily spironolactone will be on hold No sign of fluid overload Continue monitor closely (5) Candidal UTI (urinary tract infection): Continue oral terbinafine (6) PMR (polymyalgia rheumatica): On prednisone daily stable (7) Dementia: Continue seroquel Consider to decrease Lorazepam on discharge Clinically stable Osteomyelitis Right great toes B/L Big Toes Wound Xray showed persistent fragmentation and erosive changes involving the distal aspect of the proximal phalanx. In the absence of a traumatic history, the findings are consistent with osteomyelitis. Xray of Left great toe showed no conventional radiographic evidence of osteomyelitis Case discussed with ID and recommended to continue doxycycline Rocephin D/C Continue daily wound care wound care nurse on board Follow up with the wound care clinic DM type 2 Hypoglycemic on admission Hba1c 8.4 (01/22/19) Continue monitor BS closely Starting on Levemir 8 units Continue monitor BS DVT px heparin subq Disposition Will discharge back to [facility] possible tomorrow if BS stable Subjective Pt was seen and examined Sitting in chair with no distress Pt looks much better today Denies any chest pain, palpitation, dizziness and SOB Physical Exam Physical Exam: General- No acute distress, advanced dementia Head- atraumatic Eyes- PERRL, EOMI, ENT- oropharynx clear Neck- supple, no JVD Lungs- No lung wheezing and crackle Heart- regular rhythm; no murmur Abdomen- normal bowel sounds, soft, nontender Extremities- no calf tenderness, wound in both big toes with no drainage or pus Neuro- alert, awake, PERRL, EOMI; no facial palsy; no dysarthria, advanced dementia Skin- warm & dry Results & Data Vital Signs (Past 12 Hours) Vital Signs Temp Pulse Resp BP BP Pulse Ox 01/23/19 15:47 37.3 C 75 18 97/62 L 96 01/23/19 08:17 36.5 C 75 17 144/75 H 97
[2019-01-24] MEDS: HEPARIN SOD 5,000 UNIT/0.5 ML VIAL SQ SCH ×2 (05:35→14:12)
[2019-01-24] MEDS: COLLAGENASE OINT 30 GM TUBE TOP SCH (08:04)
[2019-01-24] MEDS: LORATADINE 10 MG TAB PO SCH (08:08)
[2019-01-24] MEDS: DULOXETINE HCL 30 MG CAP PO SCH (08:08)
[2019-01-24] MEDS: terbinafine HCL 250 MG TAB PO SCH (08:09)
[2019-01-24] MEDS: FUROSEMIDE 40 MG TAB PO SCH (08:10)
[2019-01-24] MEDS: predniSONE 5 MG TAB PO SCH (08:11)
[2019-01-24] MEDS: QUETIAPINE FUMARATE 25 MG TABLET PO SCH (08:11)
[2019-01-24] MEDS: DOXYCYCLINE HYCLATE 100 MG CAP PO SCH (08:12)
[2019-01-24] MEDS: CHOLECALCIFEROL (VITAMIN D) 400 UNITS TABLET PO SCH (08:13)
[2019-01-24] MEDS: ASPIRIN 81 MG ECTAB PO SCH (08:17)
[2019-01-24] MEDS: INSULIN ASPART 100 UNITS/ML 3 ML PEN SC SCH ×2 (08:56→12:45)
[2019-01-24] MEDS ORDERED: INSULIN DETEMIR FLEXPEN/FLEX TOUCH 100 UNITS/ML 3ML SC ONE (10:00)
--- NOTE | 2019-01-24 11:27 | Hospitalist Progress Note ---
Date of Service January 24, 2019 Assessment & Plan (1) Hypoglycemia: DM type 2 Present on admission with blood sugar in the 30s associated with weakness, Hypothermia Possible related to poor appetite intake Received Levemir 25 units and novolog 11 units norma the night before admitted Received D50 in the ER, BS improves Most recent Hba1c 8.4 (01/22/19) compare to 11.3 on 12/14/18 Pharmacy on board for glycemic management Will need to decrease dose of insulin on discharge Starting on Levemir 8 unit daily and later on discontinued Blood sugar has been maintained Appreciate pharmacy input for diabetes control Will Adjust the dose of insulin on discharge (2) Weakness: Due to low blood sugar vs infection Blood cx no growth so far Urine cx grew yeast Will d/c Rocephin IV Procalcitonin normal Fall precaution Continue PT/OT eval -recommended to return to [facility] (3) Acute hypotension: Possible related to acute illness Received IVF in the ER Has been back to her usual diuretics Blood pressure is controlled (4) Chronic systolic heart failure: CXR showed no active disease in the chest. Continue Lasix 40 mg daily No sign of fluid overload Again no signs of fluid overload Spironolactone was on hold on admission due to low blood pressure We will restart spironolactone on discharge Will be discharged to [facility] today (5) Candidal UTI (urinary tract infection): Continue oral terbinafine No acute infection (6) PMR (polymyalgia rheumatica): On prednisone daily stable (7) Dementia: Continue seroquel Consider to decrease Lorazepam on discharge Clinically stable Osteomyelitis Right great toes B/L Big Toes Wound Xray showed persistent fragmentation and erosive changes involving the distal aspect of the proximal phalanx. In the absence of a traumatic history, the findings are consistent with osteomyelitis. Xray of Left great toe showed no conventional radiographic evidence of osteomyelitis Case discussed with ID and recommended to continue doxycycline Rocephin D/C Continue daily wound care wound care nurse on board Follow up with the wound care clinic DM type 2 Hypoglycemic on admission Hba1c 8.4 (01/22/19) Continue monitor BS closely Starting on Levemir 8 units Continue monitor BS DVT px heparin subq Disposition Will be discharged to [facility] this afternoon Subjective 01/24 The patient was seen and examined in medical floor She denies any complaints as of today Her dementia is at baseline without any acute confusion She has been eating and drinking normally Review of Systems Review of Systems: All systems reviewed and are unremarkable except as noted below Constitutional: No acute distress at rest Neurologic: Has dementia and at baseline Physical Exam Physical Exam: Lying in bed without any acute symptoms Constitutional: well developed and well nourished; no acute distress and not ill appearing Eyes: PERRL, conjunctivae normal, anicteric sclerae ENMT: external ear and nose normal, oropharynx normal Neck: trachea midline, no thyromegaly Respiratory: normal respiratory effort; no respiratory distress Auscultation: lungs clear to auscultation bilaterally Cardiovascular: Rate/Rhythm: regular rate and regular rhythm Heart Sounds: no murmur Gastrointestinal (Abdomen): Inspection/Auscultation: abdomen normal to inspection and normal bowel sounds Percussion/Palpation: abdomen soft Musculoskeletal: No acute arthritis in any of the joints Neurologic: moves all extremities; no focal motor deficits Speech / Cognition: normal speech Motor/Sensory: no tremor Psychiatric: Speech: normal rate/rhythm/volume of speech Lymphatic: no cervical or axillary lymphadenopathy Results & Data Vital Signs (Past 12 Hours) Vital Signs Temp Pulse Resp BP Pulse Ox 01/24/19 07:13 36.9 C 76 20 114/58 L 95 Medications Administered Current Inpatient Medications Acetaminophen (Tylenol) 1,000 mg PO Q8H PRN PRN Reason: Pain Stop: 02/20/19 11:56 Aspirin (Ecotrin Ectab) 81 mg PO QAM [facility] Stop: 02/20/19 11:56 Last Admin: 01/24/19 08:17 Dose: 81 mg Documented by: Collagenase (Santyl) 1 appln TOP DAILY [facility] Stop: 02/20/19 11:56 Last Admin: 01/24/19 08:04 Dose: Not Given Documented by: Doxycycline Hyclate (Vibramycin) 100 mg PO BID [facility] Stop: 01/26/19 23:59 Last Admin: 01/24/19 08:12 Dose: 100 mg Documented by: Duloxetine HCl (Cymbalta) 30 mg PO QAM [facility] Stop: 02/20/19 11:56 Last Admin: 01/24/19 08:08 Dose: 30 mg Documented by: Furosemide (Lasix) 40 mg PO QAM [facility] Stop: 02/22/19 08:59 Last Admin: 01/24/19 08:10 Dose: 40 mg Documented by: Heparin Sodium (Porcine) (Heparin Sodium (Porcine)) 5,000 units SQ Q8 [facility] Stop: 02/20/19 13:59 Last Admin: 01/24/19 05:35 Dose: 5,000 units Documented by: Insulin Aspart (Novolog Flexpen) 0 units SC [facility]; Protocol Stop: 02/20/19 16:29 Last Admin: 01/24/19 08:56 Dose: 7 units Documented by: Loratadine (Claritin) 10 mg PO QAM [facility] Stop: 02/20/19 11:56 Last Admin: 01/24/19 08:08 Dose: 10 mg Documented by: Miscellaneous Information (Consult Glycemic Management Pharmacy) 1 ea N/A UD [facility] Stop: 02/20/19 12:07 [facility] [place] [facility]: 02/20/19 11:56 Last Admin: 01/24/19 08:11 Dose: 5 mg Documented by: Quetiapine Fumarate (Seroquel) [facility] [place] Stop: 02/20/19 11:56 Last Admin: 01/24/19 08:11 Dose: 50 mg Documented by: Quetiapine Fumarate (Seroquel) 75 mg PO HS [facility] Stop: 02/20/19 20:59 Last Admin: 01/23/19 20:44 Dose: 75 mg Documented by: Ranitidine HCl (Zantac) 150 mg PO BID [facility] Stop: 02/20/19 11:56 Last Admin: 01/24/19 08:13 Dose: 150 mg Documented by: Terbinafine HCl (Lamisil) 250 mg PO DAILY [facility] Stop: 02/22/19 00:00 Last Admin: 01/24/19 08:09 Dose: 250 mg Documented by: Vitamin D (Vitamin D3) [facility] [place] Stop: 02/20/19 11:56 Last Admin: 01/24/19 08:13 Dose: 400 units Documented by:
--- NOTE | 2019-01-24 12:28 | Pharmacy Report ---
Pharmacy Glycemic Short Note 2 - Date of Service January 24, 2019 - Glycemic Short BSG Results (Last 24 hours): 01/23/19 01/23/19 01/23/19 11:50 16:47 20:41 POC Glucose 250 H 286 H 219 H 01/24/19 07:57 POC Glucose 142 H OUTPATIENT ANTIDIABETIC REGIMEN: * Levemir 25 units qHS * Novolog 9 units qAM, 11 units with dinner * A1c 8.4% on 01/22/19 (down from 11.3% on 12/14/18) ASSESSMENT: 01/24 * Patient to be discharged today back to [facility] * Basal insulin restarted yesterday (Lantus 8 units) * Improvement in fasting BSG noted (177 mg/dL yesterday -> 142 mg/dL today) * BSGs ranging 177-286 mg/dL yesterday - CF/CR tightened today * Patient received 29 units of insulin yesterday (8 of which were basal) 01/23 * Patient received 6 units of insulin yesterday (0 basal) * BSGs ranging 108-201 mg/dL yesterday - will tighten CR/CF * Fasting BSG this morning of 177 mg/dL - will restart basal insulin today * Will be conservative with adjustments given presentation of hypoglycemia 01/22 * Angela received zero insulin yesterday and BSGs have remained < 180 mg/dL * Her A1c is down significantly from last month so I suspect outpatient regimen is too high * Fasting BSG = 108 mg/dL; will continue to hold off on basal dose * Postprandial BSGs increased after dinner last night; will add back a conservative carb ratio. Note: she did not receive any coverage for breakfast but it was noted that she ate 75% of her meal; therefore, her pre-lunch BSG was elevated. 01/21 * 78 year old with hypoglycemia on admission, BSGs in the 30s. Given amp of dextrose BSGs trending back up, however still appear to be trending down. At lunchtime BSG is 89 mg/dL. Nurse states patient did have some breakfast and some lunch but very minimal * Per provider notes, patient did take her normal Levemir dose of 25 units last evening and 11 of novolog. Her BSGs were in the 90s at that time. Patient has been having low appetite x 2 days * Will hold further basal insulin until BSGs start to trend up. Will add loosen novolog scale with no CR PLAN FOR INPATIENT GLYCEMIC CONTROL: * Basal insulin - continue Levemir 8 units this morning * Levemir 12 units tonight, then 20 units HS ongoing * Bolus insulin - tighten CF/CR * NovoLog per scale ACHS or Q6hrs while NPO * Goal Range: Low 120 mg/dL - High 160 mg/dL * Correction Factor: 25 mg/dL/unit * Nutritional / Prandial insulin per carb ratio of 1 unit per 8 grams CHO consumed PLAN FOR DISCHARGE: * Patient will be discharged with prednisone 5 mg PO daily * Patient admitted with hypoglycemia (30 mg/dL) * Patient reportedly had limited/no appetite day prior to hypoglycemic event, but was given 11 units of Novolog in the evening * Recommend reducing Levemir dose to 20 units HS starting evening of 01/25 * For 01/24 patient should receive 12 units HS x 1 * Scheduled Novolog 7 units TID with meals (HOLD if patient does NOT eat)
[2019-01-24] MEDS ORDERED: INSULIN DETEMIR FLEXPEN/FLEX TOUCH 100 UNITS/ML 3ML SC SCH (21:00)
--- NOTE | 2019-01-25 07:29 | Discharge Summary ---
Date of Service January 25, 2019 Admission HPI Per Admitting Provider 78 years old female with past medical history of advanced dementia, dyslipidemia, diabetes, chronic systolic heart failure, PMR status post pacemaker was sent to the ER from [facility] for hypoglycemia and weakness. Due to her Advanced dementia most of the history obtained from staff at [facility]. As per staff for the last 2 days patient has been having low appetite. Staff said that yesterday she did not eat much. Her Blood sugar last night was in the 90s and received Levemir and 11 units of NovoLog last night. This morning patient was very sleepy to wake up and her blood sugar was 28 as per [facility] staff. Staff said at baseline patient usually uses a walker to ambulate. In the ER blood sugar was 30 with low blood pressure with systolic as low as 78/48. She received D50 and IV fluid. Blood sugar and blood pressure improved. Currently patient is awake. Denies any chest pain, palpitation, dizziness, and shortness of breath. Admission Exam Per Admitting Provider Physical Exam: General- No acute distress, advanced dementia Head- atraumatic Eyes- PERRL, EOMI, ENT- oropharynx clear Neck- supple, no JVD Lungs- No lung wheezing and crackle Heart- regular rhythm; no murmur Abdomen- normal bowel sounds, soft, nontender Extremities- no calf tenderness, wound in both big toes with demarcated, no drainage or pus Neuro- alert, awake, PERRL, EOMI; no facial palsy; no dysarthria, advanced dementia Skin- warm & dry Principal Diagnosis Hypoglycemia-resolved, type 2 diabetes, generalized weakness, dementia, right great toe wound likely no osteomyelitis Discharge Exam Constitutional well developed and well nourished; no acute distress and not ill appearing Eyes PERRL, conjunctivae normal, anicteric sclerae ENMT external ear and nose normal, oropharynx normal Neck trachea midline, no thyromegaly Respiratory normal respiratory effort; no respiratory distress Auscultation: lungs clear to auscultation bilaterally Cardiovascular Rate/Rhythm: regular rate and regular rhythm Heart Sounds: no murmur Gastrointestinal (Abdomen) Inspection/Auscultation: abdomen normal to inspection and normal bowel sounds Percussion/Palpation: abdomen soft Neurologic moves all extremities; no focal motor deficits Speech / Cognition: normal speech Motor/Sensory: no tremor Psychiatric Speech: normal rate/rhythm/volume of speech Lymphatic no cervical or axillary lymphadenopathy Discharge Data Allergies Allergy/AdvReac Type Severity Reaction Status Date / Time Bactrim Allergy Unknown . Verified 09/05/17 16:36 lisinopril Allergy Unknown Unknown Verified 01/21/19 04:26 Penicillins Allergy Unknown ON Verified 01/21/19 04:26 [facility] LIST sulfamethoxazole Allergy Unknown ON Verified 01/21/19 04:26 ELROFT LIST trimethoprim Allergy Unknown ON Verified 01/21/19 04:26 ELROFT LIST atorvastatin AdvReac Intermediate MUSCLE PAIN Verified 01/21/19 04:26 capsaicin AdvReac Intermediate N/V Verified 01/21/19 04:26 diclofenac AdvReac Intermediate N/V Verified 01/21/19 04:26 Diclopak AdvReac Intermediate N/V Verified 09/05/17 13:27 rosuvastatin AdvReac Intermediate MUSCLE PAIN Verified 01/21/19 04:26 fenofibrate AdvReac Mild SORE MOUTH Verified 01/16/19 13:10 Consultations 01/21/19 07:20 ED Decision to Admit Stat 01/21/19 09:10 Consult Case Management - Discharge Planning Routine 01/21/19 19:25 Consult Infectious Diseases Routine Hospital Course (1) Hypoglycemia: DM type 2 Present on admission with blood sugar in the 30s associated with weakness, Hypothermia Possible related to poor appetite intake Received Levemir 25 units and novolog 11 units norma the night before admitted Received D50 in the ER, BS improves Most recent Hba1c 8.4 (01/22/19) compare to 11.3 on 12/14/18 Pharmacy on board for glycemic management Will need to decrease dose of insulin on discharge Starting on Levemir 8 unit daily and later on discontinued Blood sugar has been maintained Appreciate pharmacy input for diabetes control Will Adjust the dose of insulin on discharge (2) Weakness: Due to low blood sugar vs infection Blood cx no growth so far Urine cx grew yeast Will d/c Rocephin IV Procalcitonin normal Fall precaution Continue PT/OT eval -recommended to return to [facility] (3) Acute hypotension: Possible related to acute illness Received IVF in the ER Has been back to her usual diuretics Blood pressure is controlled (4) Chronic systolic heart failure: CXR showed no active disease in the chest. Continue Lasix 40 mg daily No sign of fluid overload Again no signs of fluid overload Spironolactone was on hold on admission due to low blood pressure We will restart spironolactone on discharge Will be discharged to [facility] today (5) Candidal UTI (urinary tract infection): Continue oral terbinafine No acute infection (6) PMR (polymyalgia rheumatica): On prednisone daily stable (7) Dementia: Continue seroquel Consider to decrease Lorazepam on discharge Clinically stable Osteomyelitis Right great toes B/L Big Toes Wound Xray showed persistent fragmentation and erosive changes involving the distal aspect of the proximal phalanx. In the absence of a traumatic history, the findings are consistent with osteomyelitis. Xray of Left great toe showed no conventional radiographic evidence of osteomyelitis Case discussed with ID and recommended to continue doxycycline Rocephin D/C Continue daily wound care wound care nurse on board Follow up with the wound care clinic DM type 2 Hypoglycemic on admission Hba1c 8.4 (01/22/19) Continue monitor BS closely Starting on Levemir 8 units Continue monitor BS DVT px heparin subq Disposition Will be discharged to [facility] this afternoon Total Time Total Time Spent Total Time Spent (In Minutes): 35 minutes Total Time Includes: Examination of the Patient, Discharge Planning, Medication Reconciliation and Communication With Other Providers Discharge Plan Discharge Items Patient Disposition: Personal Snf Reason For Visit: HYPOGLYCEMIA/HYPOTENSION Discharge Diagnosis: Hypoglycemia-resolved, type 2 diabetes, generalized weakness, dementia, right gr eat toe wound likely no osteomyelitis Condition on Discharge: Fair Activity: Resume your previous activity Non-emergency contact: Primary Care Provider Call non-emergency contact if: you have any medication questions and your symptoms worsen Follow-up/Referrals: Shawn, [Primary Care Provider] - (Please make an appointment with your primary care physician within 7 days. Will need to have a follow-up appointment with the wound clinic in 1 to 2 weeks.) Diet: Carb Consistent or DM2 Diet Texture: Dental soft (bite-sized) Addtl Attending Provider Instructions: Please take precaution to avoid falls. Your insulin doses have been changed to avoid hypoglycemia :Levemir 20 units at HS (12 units for this evening only -) :Novolog 7 units TID with meals and do not take any if she does not eat. Ativan has been discontinued but can be introduced if medically required Pending Studies at Discharge: No Stand-Alone Forms: My [facility] Skilled Items Patient informed of condition?: Yes DNR: Yes Discharge Level of Care: Skilled Communicable Disease: No Discharge Prognosis: Stable Lines: None Urinary Catheter: No Medications and DC Order Prescriptions: Continued [id number]-cod [id number] mg capsule 1 cap PO Q4H PRN (Reason: Migraine Headache) RF: 0 Santyl 250 unit/gram ointment 1 applic TOP DAILY 30 Days Qty: 30 RF: 1 doxycycline hyclate 100 mg tablet 100 mg PO bid Qty: 28 RF: 1 tolterodine [Detrol] 1 mg Tablet 1 mg PO HS RF: 0 carvedilol 12.5 mg Tablet 12.5 mg PO BID RF: 0 ranitidine HCl 150 mg Tablet 150 mg PO BID RF: 0 loratadine 10 mg Tablet 10 mg PO QAM RF: 0 gabapentin 100 mg Capsule 100 mg PO BID RF: 0 fluticasone propionate 50 mcg/actuation [place],Suspension 1 spray INTRANASAL QAM RF: 0 acetaminophen [Acetaminophen Extra Strength] 500 mg Tablet 1,000 mg PO Q8H PRN (Reason: Pain) RF: 0 aspirin [Aspirin Low Dose] 81 mg Tablet,Delayed Release (Dr/Ec) 81 mg PO QAM RF: 0 cholecalciferol (vitamin D3) 400 unit Capsule 400 unit PO QAM RF: 0 melatonin 3 mg Tablet 3 mg PO HS RF: 0 losartan 25 mg Tablet 25 mg PO QAM RF: 0 duloxetine 30 mg Capsule,Delayed Release(Dr/Ec) 30 mg PO QAM RF: 0 quetiapine 50 mg tablet 50 mg PO QAM RF: 0 quetiapine 50 mg tablet 75 mg PO HS RF: 0 furosemide 40 mg Tablet 40 mg PO QAM Qty: 30 RF: 1 One-A-Day Women's 50 Plus 400-20 mcg Tablet 1 tab PO QAM RF: 0 prednisone 5 mg Tablet 5 mg PO QAM RF: 0 terbinafine HCl 250 mg Tablet 250 mg PO DAILY RF: 0 nystatin 100,000 unit/gram Powder 1 applic TOPICAL DIRECTED RF: 0 Changed spironolactone 25 mg Tablet 12.5 mg PO QAM Qty: 30 RF: 1 Novolog Flexpen U-100 Insulin 100 unit/mL (3 mL) insulin pen 7 unit subcut TID Qty: 0 RF: 0 Levemir FlexTouch U-100 Insuln 100 unit/mL (3 mL) Insulin Pen 20 unit SUBCUT HS Qty: 0 RF: 0 Discontinued lorazepam 0.5 mg tablet 0.5 mg PO TID PRN (Reason: Anxiety) RF: 0 Novolog Flexpen U-100 Insulin 100 unit/mL (3 mL) insulin pen 11 unit subcut QDD RF: 0 Discharge Orders: Discharge Order (Routine); Ordered 01/24/19 Ordered By: Valencia Sow Admission Data Admit Date/Time: 01/21/19 09:00 Attending Provider: Valencia Sow Admit Provider: Awa Iqbal Primary Care Provider: Shawn, Other Providers: Cristiano Dietrich ; Yudith Daniels ; Awa Iqbal Other Interventions: Discharge Summary Assessment (RN) Last Done: 01/24/19 14:02 DC Date/Time DO NOT enter until pt leaves facility: 01/24/19 16:00
== END 2019-01-24 16:00 | disposition home or self-care (01) | DRG 638 ==
LOC: ED 03:47 → SUATTDRO 09:00 → 2N 09:00 → 4W 01-23 15:53

== ENCOUNTER 2019-01-31 09:05 | Inpatient (IN) ==
[2019-01-31] MEDS ORDERED: SODIUM CHLORIDE 0.9% 500 ML IV SCH (10:00)
[2019-01-31] MEDS ORDERED: DEXTROSE 50% 50 ML SYRINGE IV ONE ×2 (10:29→10:30)
[2019-01-31 10:40] LABS: Hematocrit (blood only) 33.8 % (37-47); Mean Corpuscular Hemoglobin 27.6 pg (25-34); Mean Corpuscular Hgb Conc 32.5 g/dL (32-36); Mean Corpuscular Volume 84.9 fL (80-100); Mean Platelet Volume 8.6 fL (7.4-10.4); Platelet Count 323 K/uL (130-400); RDW Coefficient of Variation 17.8 % (11.5-14.5); RDW Standard Deviation 56.1 fL (36.4-46.3); Red Blood Count 3.98 M/uL (4.2-5.4); White Blood Count 14.08 K/uL (4.8-10.8)
[2019-01-31 11:04] LABS: Alanine Aminotransferase 25 U/L (12-78); Albumin Level 2.7 gm/dl (3.4-5.0); Aspartate Aminotransferase 24 U/L (15-37); BUN Creatinine Ratio 20.4 (10-20); Basophils # (auto) 0.01 K/uL (0-0.2); Basophils % (auto) 0.1 %; Blood Urea Nitrogen 22 mg/dl (7-18); Carbon Dioxide 31 mmol/L (21-32); Chloride 95 mmol/L (98-107); Dohle Bodies 1+; Eosinophils # (auto) 0.08 K/uL (0-0.5); Eosinophils % (auto) 0.6 %; Est GFR (African American) 56.7; Est GFR (Non-African American) 48.9; Glucose 25 mg/dl (70-99); Immature Granulocytes # (auto) 0.04 K/uL (0.00-0.02); Immature Granulocytes % (auto) 0.3 %; Lymphocytes # (auto) 5.01 K/uL (1.2-3.4); Lymphocytes % (auto) 35.6 %; Monocytes % (auto) 7.1 %; Neutrophils # (auto) 7.94 K/uL (1.4-6.5); Neutrophils % (auto) 56.3 %; Potassium 3.3 mmol/L (3.5-5.1); Sodium 132 mmol/L (136-145); Toxic Granulation 1+
[2019-01-31 11:32] LABS: Albumin Globulin Ratio 0.6 (0.9-2); Alkaline Phosphatase 93 U/L (45-117); Bilirubin,Total 0.3 mg/dl (0.2-1); Globulin 4.4 gm/dl (2.5-4.0); Total Protein 7.1 gm/dl (6.4-8.2)
[2019-01-31] MEDS ORDERED: SODI CHLOR 2.5MEQ/ML 14.6% 77 MEQ in DEXTROSE 10% 1,000 ML IV SCH (13:00)
[2019-01-31] MEDS ORDERED: INFLUENZA VACCINE HIGH DOSE 65+ 0.5 ML SYR IM ONE (15:30)
[2019-01-31] MEDS ORDERED: INFLUENZA ADMINISTRATION CHARGE ONE (15:30)
--- NOTE | 2019-01-31 15:44 | History & Physical Report ---
Date of Service January 31, 2019 Assessment & Plan (1) Hypoglycemia: (2) Diabetes mellitus, type 2: -Admit to [facility] w/ telemetry -Patient presenting from [facility] for evaluation of hypoglycemia -Recent admission to [facility] 01/21 through 01/24 for hypoglycemia and management of right great toe osteomyelitis -At discharge, patient's insulin was decreased -Per discussion with [facility] staff, patient has had a continued poor appetite. Levemir was reduced on 01/29 from 25 units to 20 units. For the past several days, patient has been having episodes of hypoglycemia. She did not receive any insulin yesterday. According to [facility] staff, blood sugar was 451 this morning and patient received 7 units of NovoLog. Shortly after, patient developed symptomatic hypoglycemia in the 20s. -HgbA1c 8.4 01/22/2019 -Received 2 doses of IV D50 in the ED and placed on D10 drip with improvement in blood sugars -Discontinue D10 drip upon arrival to floor, monitor BSG's closely -Monitor food intake closely; conservative NovoLog coverage ordered -Given patient's recent inconsistent and poor appetite, long-acting insulin likely will not be indicated (3) Osteomyelitis: -During recent admission, x-ray showed osteomyelitis the right great toe; no signs of osteomyelitis on x-ray of left great toe; unable to obtain MRI due to pacemaker -Had been on doxycycline per wound care center; patient was evaluated by ID during recent admission who advised to continue doxycycline; patient completed course on 01/26 -Wound culture from 01/16 grew MRSA and Serratia -Per daughter, patient has been evaluated by orthopedics and vascular surgery as an outpatient for possible amputation however given her underlying severe PAD, this was deferred -Case was discussed with Win Cooper PA-C with orthopedics who recommends CT scan of both toes to evaluate for osteomyelitis -ID consult for antibiotic recommendations -WBC 14K however does not appear septic and is afebrile; leukocytosis possibly from underlying chronic steroid use as well as stress response from severe hypoglycemia (4) Ischemic cardiomyopathy: (5) ICD (implantable cardioverter-defibrillator) in place: -Echo 09/2018 EF 30 to 35% -Appears euvolemic on exam -Continue diuretics, beta-chaparro, and aspirin (6) PAD (peripheral artery disease): -Continue aspirin (7) PMR (polymyalgia rheumatica): -Continue chronic prednisone (8) Dementia: -Continue home medications (9) Pacemaker: -No acute issues (10) DVT prophylaxis: -SQ Lovenox History of Present Illness Chief Complaint: Hypoglycemia Primary Care Provider: Leonidas Baez 78-year-old female who presents the ED from [facility] for evaluation of hypoglycemia. Patient recently admitted to [facility] 01/21 through 01/24 for hypoglycemia and also management of right great toe osteomyelitis. Patient also has a wound to the left great toe, x-ray was negative for osteomyelitis during previous admission. MRI was unable to be obtained as patient has pacemaker. Wound culture from 01/16 grew MRSA and Serratia. Per sensitivities, patient was placed on doxycycline. She was also evaluated by ID. She completed doxycycline therapy on 01/26. Per patient's daughter, she has been evaluated by orthopedics as well as by vascular surgery as an outpatient and amputation as well as vascular intervention was deferred given her underlying severe PAD. At the time of patient's discharge, NovoLog and Levemir doses were reduced with instructions to hold if patient was not eating. Per discussion with [facility] staff, patient has been having episodes of hypoglycemia for the past several days. Blood sugars are running in the 60s to 70s yesterday and therefore patient did not have any NovoLog nor her Levemir. On 01/29, Levemir dose was reduced further. This morning, patient's blood sugar was found to be 451. She received 7 units of NovoLog and shortly after, there is reported lethargy. Blood sugar was checked and was in the 20s. Due to altered mental status, patient was unable to take anything p.o. EMS was called and patient was brought to the ED for further evaluation. Per [facility] staff, patient continues to have a very poor appetite and eats very little. In the ED, patient's blood sugar was found to be 25. She received 2 doses of IV D50. Blood sugar improved to 317 and then went to 147. She was then placed on a D10 drip. Allergies Allergy/AdvReac Type Severity Reaction Status Date / Time Bactrim Allergy Unknown . Verified 09/05/17 16:36 lisinopril Allergy Unknown Unknown Verified 01/31/19 09:59 Penicillins Allergy Unknown ON Verified 01/31/19 09:59 [facility] L[facility] sulfamethoxazole Allergy Unknown ON Verified 01/31/19 09:59 [facility] LIST trimethoprim Allergy Unknown ON Verified 01/31/19 09:59 [facility] LIST atorvastatin AdvReac Intermediate MUSCLE PAIN Verified 01/31/19 09:59 capsaicin AdvReac Intermediate N/V Verified 01/31/19 09:59 diclofenac AdvReac Intermediate N/V Verified 01/31/19 09:59 Diclopak AdvReac Intermediate N/V Verified 09/05/17 13:27 rosuvastatin AdvReac Intermediate MUSCLE PAIN Verified 01/31/19 09:59 fenofibrate AdvReac Mild SORE MOUTH Verified 01/31/19 09:59 Home Medications Home Medications Medication Instructions Recorded Confirmed Type aspirin [Aspirin Low Dose] 81 mg PO QAM 12/22/17 01/31/19 History carvedilol 12.5 mg PO BID 12/22/17 01/31/19 History cholecalciferol (vitamin D3) 400 unit PO QAM 12/22/17 01/31/19 History fluticasone propionate 1 spray INTRANASAL QAM 12/22/17 01/31/19 History gabapentin 100 mg PO BID 12/22/17 01/31/19 History loratadine 10 mg PO QAM 12/22/17 01/31/19 History ranitidine HCl 150 mg PO BID 12/22/17 01/31/19 History tolterodine [Detrol] 1 mg PO HS 12/22/17 01/31/19 History duloxetine 30 mg PO QAM 09/10/18 01/31/19 History losartan 25 mg PO QAM 09/10/18 01/31/19 History melatonin 3 mg PO HS 09/10/18 01/31/19 History quetiapine 50 mg PO QAM 09/10/18 01/31/19 History quetiapine 75 mg PO HS 09/10/18 01/31/19 History One-A-Day Women's 50 Plus 1 tab PO QAM 10/26/18 01/31/19 History butalbital 50 mg-acetaminophen 325 1 cap PO Q4H PRN cap 11/23/18 01/31/19 History mg-caffeine 40 mg-codeine 30 mg cap prednisone 5 mg PO QAM 12/22/18 01/31/19 History nystatin 1 applic TOPICAL DIRECTED 01/21/19 01/31/19 History Levemir FlexTouch U-100 Insuln 20 unit SUBCUT HS #0 ml 01/24/19 01/31/19 Rx Novolog Flexpen U-100 Insulin 7 unit SUBCUT TID #0 ml 01/24/19 01/31/19 Rx lorazepam 0.5 mg PO TID PRN 01/29/19 01/31/19 History spironolactone 37.5 mg PO QAM 01/29/19 01/31/19 History terbinafine HCl 250 mg PO DAILY 01/29/19 01/31/19 History docusate sodium 100 mg PO BID 01/31/19 01/31/19 History furosemide 40 mg PO QAM 01/31/19 01/31/19 History Past Med/Surg History Medical History Ischemic cardiomyopathy (Chronic) History of left common carotid artery stent placement (Chronic) PAD (peripheral artery disease) (Chronic) LSFA/popliteal/peroneal artery angioplasty on 06/01/17 Chronic systolic heart failure (Chronic) PMR (polymyalgia rheumatica) (Chronic) Dementia (Chronic) HTN (hypertension) (Chronic) GERD (gastroesophageal reflux disease) (Chronic) PVD (peripheral vascular disease) (Chronic) ICD (implantable cardioverter-defibrillator) in place (Chronic) Pacemaker (Chronic) Cholelithiasis (Chronic) Osteomyelitis (Chronic) Coronary artery disease (Chronic) "s/p [place]" History of bradycardia (Chronic) Diabetes mellitus, type 2 (Chronic) Statin intolerance (Chronic) RADHA inhibitor intolerance (Chronic) Carotid arterial disease (Chronic) Surgical History S/P CABG x 2 (Chronic) Status post cataract extraction (Chronic) Status post tubal ligation (Chronic) Family History Brother Diabetes Sister Diabetes Social History Preferred Language: Mauritian Communication Ability: Effective Weight Guesser Required: No Beliefs That Will Affect Care: None marital status: / Current Living Situation: Personal Care Facility Current Living Situation Comment: [facility] dementia unit current occupational status: retired Other Information That Helps Us Care for You: No Feels Safe at Home: Yes Safety Concerns: Feels Safe At This Time Smoking Status: Never smoker Do You Dip or Chew Tobacco: No ; Second Hand Exposure: No ; Tobacco Cessation Education Requested by Patient: No Hx Alcohol Use: No Hx Substance Use: No Review of Systems Review of Systems: Unobtainable due to cognitive status Physical Exam Constitutional: WD/WN, vitals as above Eyes: PERRL, conjunctivae normal, anicteric sclerae ENMT: external ear and nose normal, oropharynx normal Respiratory: normal respiratory effort, lungs clear to auscultation Cardiovascular: Rate/Rhythm: regular rate and regular rhythm Vessels: normal peripheral pulses Extremities: no edema Gastrointestinal (Abdomen): normal bowel sounds, soft, nontender, no hepatosplenomegaly Musculoskeletal: no cyanosis or clubbing, extremities motor strength 5/5 Skin: no rashes, warm and dry Wounds noted to: Lateral base of right great toe and left lateral great toe; minimal surrounding erythema, no significant drainage Neurologic: PERRL, EOMI, accommodation nl, no face palsy, no dysarthria Psychiatric: Orientation: alert; + not oriented to person, + not oriented to place and + not oriented to time Pleasantly confused, answers minimal questions Results & Data Vital Signs (Past 12 Hours) Vital Signs Temp Pulse Pulse Resp BP BP Pulse Ox 01/31/19 14:00 64 16 123/78 96 01/31/19 12:41 68 14 104/57 L 97 01/31/19 10:51 67 20 103/50 L 96 01/31/19 09:01 36.7 C 71 20 99/55 L 97 Laboratory Results Short CBC 01/31/19 Range/Units 10:24 WBC 14.08 H (4.8-10.8) K/uL Hgb 11.0 L (12.0-16.0) g/dL Hct 33.8 L (37-47) % Plt Count 323 (130-400) K/uL BMP 01/31/19 10:24 Sodium 132 L Potassium 3.3 L Chloride 95 L Carbon Dioxide 31 BUN 22 H Creatinine 1.09 Glucose 25 L* Calcium 9.0 Liver Function 01/31/19 Range/Units 10:24 Total Bilirubin 0.3 (0.2-1) mg/dl AST 24 (15-37) U/L ALT 25 (12-78) U/L Alkaline Phosphatase 93 (45-117) U/L Albumin 2.7 L (3.4-5.0) gm/dl Code Status & VTE Plan Code Status Patient is a DNR as per my discussion with patient's daughter, Katey via telephone. VTE Prophylaxis Plan VTE Prophylaxis will be ordered: Yes Supervising Physician Co-Signing Physician Notes I have seen and examined the patient and have discussed the case with the provider above. I agree with the assessment and plan as stated. 78 yo female with end-stage dementia, and as a result, she is unable to give a history. She is well appearing, but is averse to eating the food on her tray. It is noticed that she is edentulous, and per nursing has no teeth with her, so will change her diet to minced and moist for now to aid in her nutrition. BSG is now 289. Cont correction factor for now, and if still elevated this evening, will cover with overnight checks and add carb coverage in the morning. She has a h/o osteo with a recent wound culture growing Serratia and MRSA. She does have evidence of osteo on CT scans of her toes, and will place her on Vanc and Rocephin in place of doxy for two reasons. It is not clear how effective this has been for her, and she had some nausea and vomiting at a recent ER visit two days ago which was thought 2/2 doxycycline use. Physical exam reveals no respiratory distress, with warm and dry skin, lungs clear to auscultation, S1/2 heard wit hout evidence of murmurs, no peripheral edema with bilateral great toe wounds that are closed. contact precautions. Otherwise cont plan as above. DO Deon (1) Osteomyelitis Laterality: right Osteomyelitis location: foot Osteomyelitis type: unspecified type Qualified Code(s): M86.9 - Osteomyelitis, unspecified
[2019-01-31] MEDS ORDERED: GLUCOSE 10 TABS/TUBE PO PRN (16:08)
[2019-01-31] MEDS ORDERED: CARBOHYDRATES FOR HYPOGLYCEMIA PO PRN (16:08)
[2019-01-31] MEDS ORDERED: DEXTROSE 50% 50 ML SYRINGE IV PRN (16:08)
[2019-01-31] MEDS ORDERED: GLUCOSE 40% GEL 15 GM TUBE PO PRN (16:08)
[2019-01-31] MEDS ORDERED: GLUCAGON FOR INJ 1 MG VIAL SQ PRN (16:08)
[2019-01-31] MEDS ORDERED: ACETAMINOPHEN 325 MG TAB PO PRN (16:08)
--- NOTE | 2019-01-31 16:47 | Emergency Department Note ---
Entered by Sanket Min acting as a scribe for History of Present Illness General Chief complaint: Hypoglycemia Stated complaint: diabetic eval Time Seen by Provider: 01/31/19 09:51 Source: patient History of Present Illness Provider complaint: Hypoglycemia Onset (ago): hour(s) (This morning) Location: head Severity: similar to prior episodes Pain Consistency: + constant Associated symptoms: + other (Fatigued ) The patient is a 78 year old female w/ PMHx of hypoglycemia, UTI, chronic systolic heart failure, DVT, PMR, HTN, GERD, PVD, Pacemaker, CHF, NSTEMI, CAD, and Dementia who presents to the ED from [facility] after staff noticed she was hypoglycemic this morning. Per the nursing staff, the patient's sugar was around 400 so she was given her regular dose of insulin, however her sugar then drastically dropped to 20. Per the nurse, the patient was here 3 days ago for a similar episode of uncontrollable blood sugar levels. The patient was given sugar by EMS en route to get her BSG up to 100. The patient states she feels fatigued but denies any other symptoms. HPI is limited secondary to patient's dementia. The history was provided by staff at [facility], EMS, and her nurse Jeferson. Home Medications Home Medications Medication Instructions Recorded Confirmed Type aspirin [Aspirin Low Dose] 81 mg PO QAM 12/22/17 01/31/19 History carvedilol 12.5 mg PO BID 12/22/17 01/31/19 History cholecalciferol (vitamin D3) 400 unit PO QAM 12/22/17 01/31/19 History fluticasone propionate 1 spray INTRANASAL QAM 12/22/17 01/31/19 History gabapentin 100 mg PO BID 12/22/17 01/31/19 History loratadine 10 mg PO QAM 12/22/17 01/31/19 History ranitidine HCl 150 mg PO BID 12/22/17 01/31/19 History tolterodine [Detrol] 1 mg PO HS 12/22/17 01/31/19 History duloxetine 30 mg PO QAM 09/10/18 01/31/19 History losartan 25 mg PO QAM 09/10/18 01/31/19 History melatonin 3 mg PO HS 09/10/18 01/31/19 History quetiapine 50 mg PO QAM 09/10/18 01/31/19 History quetiapine 75 mg PO HS 09/10/18 01/31/19 History One-A-Day Women's 50 Plus 1 tab PO QAM 10/26/18 01/31/19 History butalbital 50 mg-acetaminophen 325 1 cap PO Q4H PRN cap 11/23/18 01/31/19 History mg-caffeine 40 mg-codeine 30 mg cap prednisone 5 mg PO QAM 12/22/18 01/31/19 History nystatin 1 applic TOPICAL DIRECTED 01/21/19 01/31/19 History Levemir FlexTouch U-100 Insuln 20 unit SUBCUT HS #0 ml 01/24/19 01/31/19 Rx Novolog Flexpen U-100 Insulin 7 unit SUBCUT TID #0 ml 01/24/19 01/31/19 Rx lorazepam 0.5 mg PO TID PRN 01/29/19 01/31/19 History spironolactone 37.5 mg PO QAM 01/29/19 01/31/19 History terbinafine HCl 250 mg PO DAILY 01/29/19 01/31/19 History docusate sodium 100 mg PO BID 01/31/19 01/31/19 History furosemide 40 mg PO QAM 01/31/19 01/31/19 History Allergies Allergy/AdvReac Type Severity Reaction Status Date / Time Bactrim Allergy Unknown . Verified 09/05/17 16:36 lisinopril Allergy Unknown Unknown Verified 01/31/19 09:59 Penicillins Allergy Unknown ON Verified 01/31/19 09:59 ELMCROFT LIST sulfamethoxazole Allergy Unknown ON Verified 01/31/19 09:59 ELMCROFT LIST trimethoprim Allergy Unknown ON Verified 01/31/19 09:59 ELMCROFT LIST atorvastatin AdvReac Intermediate MUSCLE PAIN Verified 01/31/19 09:59 capsaicin AdvReac Intermediate N/V Verified 01/31/19 09:59 diclofenac AdvReac Intermediate N/V Verified 01/31/19 09:59 Diclopak AdvReac Intermediate N/V Verified 09/05/17 13:27 rosuvastatin AdvReac Intermediate MUSCLE PAIN Verified 01/31/19 09:59 fenofibrate AdvReac Mild SORE MOUTH Verified 01/31/19 09:59 Past Med/Surg History Medical History Ischemic cardiomyopathy (Chronic) History of left common carotid artery stent placement (Chronic) PAD (peripheral artery disease) (Chronic) LSFA/popliteal/peroneal artery angioplasty on 06/01/17 Chronic systolic heart failure (Chronic) PMR (polymyalgia rheumatica) (Chronic) Dementia (Chronic) HTN (hypertension) (Chronic) GERD (gastroesophageal reflux disease) (Chronic) PVD (peripheral vascular disease) (Chronic) ICD (implantable cardioverter-defibrillator) in place (Chronic) Pacemaker (Chronic) Cholelithiasis (Chronic) Osteomyelitis (Chronic) Coronary artery disease (Chronic) "s/p AK" History of bradycardia (Chronic) Diabetes mellitus, type 2 (Chronic) Statin intolerance (Chronic) RADHA inhibitor intolerance (Chronic) Carotid arterial disease (Chronic) Dementia (Acute) Surgical History S/P CABG x 2 (Chronic) Status post cataract extraction (Chronic) Status post tubal ligation (Chronic) Family History Other No significant family history Social History Preferred Language: Frisian Communication Ability: Effective Can Bander Operator Required: No Beliefs That Will Affect Care: None marital status: / Current Living Situation: Personal Care Facility Current Living Situation Comment: [facility] dementia unit current occupational status: retired Other Information That Helps Us Care for You: No Feels Safe at Home: Yes Safety Concerns: Feels Safe At This Time Smoking Status: Never smoker Do You Dip or Chew Tobacco: No ; Second Hand Exposure: No ; Tobacco Cessation Education Requested by Patient: No Hx Alcohol Use: No Hx Substance Use: No Review of Systems See HPI for pertinent positives & negatives. and A total of 10 systems reviewed and were otherwise negative Physical Exam Vital Signs Vital Signs - 24 hr 01/31/19 09:01 01/31/19 09:15 01/31/19 10:15 Temperature 36.7 C Temperature Source Oral Oral Sepsis Recent Fever Within 48 Hours No Sepsis Action Taken by Nursing No Action Required Pulse Rate 71 Pulse Rate [Apical] Respiratory Rate 20 Respiratory Effort / Characteristics Non-Labored Respiratory Depth Normal Blood Pressure 99/55 L Blood Pressure [Right Arm] Blood Pressure Mean 69 Blood Pressure Mean [Right Arm] Blood Pressure Position Lying Pulse Oximetry 97 Oxygen Delivery Method Room Air Room Air 01/31/19 10:51 01/31/19 12:41 Temperature Temperature Source Sepsis Recent Fever Within 48 Hours Sepsis Action Taken by Nursing Pulse Rate Pulse Rate [Apical] 67 68 Respiratory Rate 20 14 Respiratory Effort / Characteristics Respiratory Depth Normal Blood Pressure Blood Pressure [Right Arm] 103/50 L 104/57 L Blood Pressure Mean Blood Pressure Mean [Right Arm] 67 72 Blood Pressure Position Pulse Oximetry 96 97 Oxygen Delivery Method Room Air GENERAL: Well nourished, NAD, non-toxic. EYE EXAM: Normal conjunctiva. PERRL, no anisocoria and EOM's grossly intact w/o pain. OROPHARYNX: Moist mucus membranes. Grossly normal dentition. NECK: Supple, no nuchal rigidity, no adenopathy, non-tender. No signs of meningismus. LUNGS: Clear to auscultation. Normal chest wall mechanics. HEART: NSR, no MRG. ABDOMEN: Abdomen soft, non-tender, normo-active bowel sounds, no masses, no rebound or guarding. SKIN: No rashes and no bruising. UPPER EXTREMITIES: Upper extremities are grossly normal. LOWER EXTREMITIES: No pitting edema. No calf pain. NEURO EXAM: Open eyes to voice, follows commands with all 4 extremities but generalized weakness is noted. Course 1002: Past medical records reviewed. The patient was evaluated in room A10, and a complete history and physical examination were performed. 1210: After multiple attempts to stabilize the patient's sugar, she is not able to keep it high enough to go home. I discussed the plan with the patient and she agreed. 1250: [facility] about the patient's case. They are going to accept the patient for further evaluation. Consultations Consultation #1: [facility] Deon Hall about the patient's case. They are going to accept the patient for further evaluation. Time: 12:50 Administered Medications Discontinued Medications Dextrose (Dextrose 50%) 50 ml IV NOW ONE Stop: 01/31/19 10:30 Last Admin: 01/31/19 10:34 Dose: 50 ml Documented by: [id number] Dextrose (Dextrose 50%) 50 ml IV NOW ONE Stop: 01/31/19 10:31 Last Admin: 01/31/19 10:35 Dose: 50 ml Documented by: [id number] Sodium Chloride (Nss) 500 mls @ 999 mls/hr IV .Q31M LUCY Stop: 01/31/19 10:30 Last Infusion: 01/31/19 11:43 Dose: 0 mls/hr Documented by: [id number] Admin: 01/31/19 10:50 Dose: 999 mls/hr Documented by: [id number] Sodium Chloride 77 meq/ (Dextrose) 1,030.8 mls @ 200 mls/hr IV .Q5H10M [facility] Stop: 03/02/19 12:59 Last Infusion: 01/31/19 16:18 Dose: 0 mls/hr Documented by: [id number] Admin: 01/31/19 13:26 Dose: 200 mls/hr Documented by: [id number] Medical Decision Making Medical Records Attestation: I reviewed the patient's medical records. Home Medications Current Medication List: was personally reviewed by me Laboratory Data Attestation: I reviewed the patient's lab results. Result diagrams: 01/31/19 10:24 01/31/19 10:24 Lab Results 01/31/19 01/31/19 01/31/19 Range/Units 09:13 10:24 10:24 WBC 14.08 H (4.8-10.8) K/uL RBC 3.98 L (4.2-5.4) M/uL Hgb 11.0 L (12.0-16.0) g/dL Hct 33.8 L (37-47) % MCV 84.9 (80-100) fL MCH 27.6 (25-34) pg MCHC 32.5 (32-36) g/dL RDW Std Deviation 56.1 H (36.4-46.3) fL RDW Coeff of Fercho 17.8 H (11.5-14.5) % Plt Count 323 (130-400) K/uL MPV 8.6 (7.4-10.4) fL Immature Gran % (Auto) 0.3 % Neut % (Auto) 56.3 % Lymph % (Auto) 35.6 % Lenoir % (Auto) 7.1 % Eos % (Auto) 0.6 % Baso % (Auto) 0.1 % Immature Gran # (Auto) 0.04 H (0.00-0.02) K/uL Neut # (Auto) 7.94 H (1.4-6.5) K/uL Lymph # (Auto) 5.01 H (1.2-3.4) K/uL Lenoir # (Auto) 1.00 H (0.11-0.59) K/uL Eos # (Auto) 0.08 (0-0.5) K/uL Baso # (Auto) 0.01 (0-0.2) K/uL Toxic Granulation 1+ Dohle Bodies 1+ Sodium 132 L (136-145) mmol/L Potassium 3.3 L (3.5-5.1) mmol/L Chloride 95 L (98-107) mmol/L Carbon Dioxide 31 (21-32) mmol/L Anion Gap 6.0 (3-11) BUN 22 H (7-18) mg/dl Creatinine 1.09 (0.6-1.2) mg/dl Est Cr Clr Drug Dosing Not Reportable Est GFR ( Amer) 56.7 Est GFR (Non-Af Amer) 48.9 BUN/Creatinine Ratio 20.4 H (10-20) Glucose 25 L* (70-99) mg/dl POC Glucose 100 H (70-99) Calcium 9.0 (8.5-10.1) mg/dl Total Bilirubin 0.3 (0.2-1) mg/dl AST 24 (15-37) U/L ALT 25 (12-78) U/L Alkaline Phosphatase 93 (45-117) U/L Total Protein 7.1 (6.4-8.2) gm/dl Albumin 2.7 L (3.4-5.0) gm/dl Globulin 4.4 H (2.5-4.0) gm/dl Albumin/Globulin Ratio 0.6 L (0.9-2) TSH 1.210 (0.300-4.500) uIu/ml 01/31/19 01/31/19 01/31/19 Range/Units 10:28 11:11 12:43 WBC (4.8-10.8) K/uL RBC (4.2-5.4) M/uL Hgb (12.0-16.0) g/dL Hct (37-47) % MCV (80-100) fL MCH (25-34) pg MCHC (32-36) g/dL RDW Std Deviation (36.4-46.3) fL RDW Coeff of Fercho (11.5-14.5) % Plt Count (130-400) K/uL MPV (7.4-10.4) fL Immature Gran % (Auto) % Neut % (Auto) % Lymph % (Auto) % Lenoir % (Auto) % Eos % (Auto) % Baso % (Auto) % Immature Gran # (Auto) (0.00-0.02) K/uL Neut # (Auto) (1.4-6.5) K/uL Lymph # (Auto) (1.2-3.4) K/uL Lenoir # (Auto) (0.11-0.59) K/uL Eos # (Auto) (0-0.5) K/uL Baso # (Auto) (0-0.2) K/uL Toxic Granulation Dohle Bodies Sodium (136-145) mmol/L Potassium (3.5-5.1) mmol/L Chloride (98-107) mmol/L Carbon Dioxide (21-32) mmol/L Anion Gap (3-11) BUN (7-18) mg/dl Creatinine (0.6-1.2) mg/dl Est Cr Clr Drug Dosing Est GFR ( Amer) Est GFR (Non-Af Amer) BUN/Creatinine Ratio (10-20) Glucose (70-99) mg/dl POC Glucose 40 L* 317 H* 147 H (70-99) Calcium (8.5-10.1) mg/dl Total Bilirubin (0.2-1) mg/dl AST (15-37) U/L ALT (12-78) U/L Alkaline Phosphatase (45-117) U/L Total Protein (6.4-8.2) gm/dl Albumin (3.4-5.0) gm/dl Globulin (2.5-4.0) gm/dl Albumin/Globulin Ratio (0.9-2) TSH (0.300-4.500) uIu/ml ECG Data Attestation: I personally reviewed and interpreted this ECG as follows: Indication: weakness Rate (beats per minute): 67 Rhythm: other (V-Paced ) Findings: + other (Wide QRS), + LBBB and + Q waves Blood Pressure Blood Pressure Findings: Low blood pressure Blood Pressure Disposition: further management by hospitalist MDM Narrative The patient is a 78 year old female w/ PMHx of hypoglycemia, UTI, chronic systolic heart failure, DVT, PMR, HTN, GERD, PVD, Pacemaker, CHF, NSTEMI, CAD, and Dementia who presents to the ED from [facility] after staff noticed she was hypoglycemic this morning. Differential Diagnosis includes but is not limited to dehydration, stroke, anemia, hypoglycemia, hyponatremia, hypernatremia, urinary tract infection, pneumonia, bronchitis, sepsis, gastroenteritis, additional abdominal pathology, metabolic abnormalities, infections, and medication side effect. Patient was seen and evaluated the bedside. The patient did present with concern for hypoglycemia. The patient did have blood work completed which reconfirmed her persistent hypoglycemia even after getting D50 in the ambulance. The patient did receive 2 subsequent doses of D50. Patient was encouraged to either the patient is arousable but not awake and alert. The patient other b lood work shows some mild chronic anemia. White count is elevated. No obvious infectious symptoms. The patient does have severe dementia so much of the history is obtained from nursing and EMS report. The patient's blood sugar did improve but upon recheck even without food the patient's sugar dropped to 140. Given my concern that prior ER physician had tried to facilitate a change in the insulin and this is not changed and the patient is having recurrent hypoglycemic issues I believe she would benefit from improved glycemic control and medication management. I did speak the on-call hospitalist agreed to further evaluate treat the patient. Patient was admitted to the medicine service. Impression & Plan Hypoglycemia, Dehydration, Medication side effect Discharge Plan Visit Data *Final* Discharge Date/Time: 01/31/19 15:42 Chief Complaint: Hypoglycemia Stated Complaint: diabetic eval ED Provider: Kwaku Buchanan Discharge Problem: Hypoglycemia, Dehydration, Medication side effect Patient Disposition: Admitted As Inpatient Discharge Instructions Interventions: ED Discharge Assessment Last Done: 01/31/19 15:42 The scribe's documentation has been prepared under my direction and personally reviewed by me in its entirety. I confirm that the note above accurately reflects all work, treatment, procedures, and medical decision making performed by me.
--- NOTE | 2019-01-31 16:58 | CT Scan Report ---
CT foot RT wo con CLINICAL HISTORY: 78 years-old Female presenting with eval for right great toe osteomyelitis. TECHNIQUE: Multidetector CT of the right foot was performed without the use of intravenous contrast. IV contrast: None. One or more dose lowering techniques were used consistent with the principles of A ANDI (as low as reasonably achievable), including automatic exposure control, mA or kV adjustment to individual patient size, and/or use of iterative reconstruction. COMPARISON: Plain radiographs from 01/21/[address] from 07/27/2018. CT DOSE (mGy.cm): The estimated cumulative dose is 136.60. FINDINGS: Twisting Machine Operator topogram: Unremarkable. Subcutaneous fat infiltration and skin thickening in the first toe. There is also mild subcutaneous e francheska noted diffusely. There may also be focal subcutaneous infiltration and skin thickening along the lateral aspect of the fifth metatarsophalangeal joint. No rim-enhancing collection to suggest absces s. Mild muscle atrophy is suggested. Atherosclerosis. There may also be soft tissue irregularity of t he plantar aspect of the forefoot at the level of the second and third metatarsophalangeal joints. Chronic deformity at the interphalangeal joint of the first toe with comminuted fracturing/disintegra tion of the head of the proximal phalanx. There is also some erosions suggested at the base of the di stal phalanx. This is centered at the interphalangeal joint. Findings have progressed since the prior exam. Osteopenia. This limits evaluation for osteomyelitis and nondisplaced fracture. Degenerative changes at the ankle mortise. No additional sites of osseous erosion. IMPRESSION: 1. Interval progression of septic arthritis/osteomyelitis at the interphalangeal joint of the first toe. 2. Subcutaneous infiltration and skin thickening of the first toe suggests cellulitis. 3. Similar findings along the lateral aspect at the level of the fifth metatarsophalangeal joint. Co rrelate clinically to exclude cellulitis in these regions. 4. Questionable plantar ulceration over the second and third metatarsophalangeal joints. Correlate c linically. 5. Allowing for osteopenia, no acute fracture. 6. Degenerative changes of the ankle mortise. Electronically signed by: Leonel Gomez M.D. 01/31/2019 4:56 PM
[2019-01-31] MEDS ORDERED: POTASSIUM CHLORIDE 20 MEQ/15 ML UDC PO ONE (17:00)
--- NOTE | 2019-01-31 17:04 | CT Scan Report ---
LEFT FOOT CT CT DOSE: 136.60 mGy.cm HISTORY: eval for left great toe osteomyelitis TECHNIQUE: Multiaxial CT images of the left foot were performed and reformatted in the sagittal and c oronal plane without the use of contrast. A dose lowering technique was utilized adhering to the giuliana Matthew. COMPARISON: Left first toe 01/21/2019. FINDINGS: Please refer to the same day CT of the right foot for further evaluation of the right first toe abnormality. There is motion artifact within the left foot resulting in suboptimal evaluation. T he bones are osteopenic. A focal 4 mm cortical indentation at the distal tuft of the first toe with l oss of the normal cortex. This raises the possibility of osteomyelitis. Vascular calcifications are n oted. Mild to moderate degenerative changes within the foot. There are flexion deformities seen throu ghout the toes. Mild subcutaneous edema seen throughout the foot most pronounced within the first dig it. IMPRESSION: A focal 4 mm indentation at the distal tuft of the first toe with loss of the normal cortex. This edge ses the possibility of osteomyelitis. Electronically signed by: Mushtaq Lopez M.D. 01/31/2019 5:03 PM
[2019-01-31] MEDS: carvediloL 12.5 MG TAB PO SCH (17:51)
[2019-01-31] MEDS: ENOXAPARIN INJ 40 MG/0.4 ML SYR SQ SCH (17:51)
[2019-01-31] MEDS: GABAPENTIN 100 MG CAP PO SCH (17:52)
[2019-01-31] MEDS ORDERED: VANCOMYCIN CONSULT ACTIVE PRN (18:09)
[2019-01-31] MEDS: INSULIN ASPART 100 UNITS/ML 3 ML PEN SC SCH ×2 (18:15→21:34)
[2019-01-31] MEDS ORDERED: VANCOMYCIN HCL 1,250 MG in SODIUM CHLORIDE 0.9% 250 ML IV SCH (18:45)
[2019-01-31] MEDS: cefTRIAXone SODIUM 1,000 MG in DEXTROSE 5% 50 ML IV SCH (19:58)
[2019-01-31] MEDS: QUETIAPINE FUMARATE 25 MG TABLET PO SCH (20:29)
[2019-01-31] MEDS: TOLTERODINE TARTRATE 1 MG TAB PO SCH (20:29)
[2019-01-31] MEDS: DOCUSATE SODIUM 100 MG CAP PO SCH (20:29)
[2019-02-01 07:10] LABS: Hematocrit (blood only) 31.3 % (37-47); Mean Corpuscular Hemoglobin 27.6 pg (25-34); Mean Corpuscular Hgb Conc 31.9 g/dL (32-36); Mean Corpuscular Volume 86.5 fL (80-100); Mean Platelet Volume 8.8 fL (7.4-10.4); Platelet Count 293 K/uL (130-400); RDW Coefficient of Variation 17.9 % (11.5-14.5); RDW Standard Deviation 56.6 fL (36.4-46.3); Red Blood Count 3.62 M/uL (4.2-5.4); White Blood Count 9.74 K/uL (4.8-10.8)
[2019-02-01 07:45] LABS: BUN Creatinine Ratio 12.5 (10-20); Calcium 8.4 mg/dl (8.5-10.1); Creatinine Clr Calc Pharmacy 38.9 ml/min; Est GFR (African American) 74.5; Est GFR (Non-African American) 64.3
--- NOTE | 2019-02-01 08:30 | Pharmacy Report ---
Pharmacy Abx Initial Consult - Date of Service February 01, 2019 - Pharmacy Dosing Scope Date of Consult: 01/31 Consultation requested by: Madison Liriano PA-C Pharmacy is consulted to initiate vanomycin IV/PO dosing therapy, order appropriate labs and adjust drug dose/frequency. - Subjective The patient is a 78 year old F admitted on 01/31/19 18:20. - Objective Height: 5 ft Weight: 53.4 kg Vital Signs (Past 12hrs): Vital Signs Temp Pulse Pulse Resp BP Pulse Ox 02/01/19 07:53 36.5 C 78 20 116/65 91 02/01/19 07:50 72 01/31/19 23:11 36.5 C 80 18 90/55 L 97 Lab Results (24hrs): Laboratory Tests (24 Hours) 02/01/19 02/01/19 01/31/19 06:53 06:53 10:24 WBC 9.74 Neut # (Auto) ESR Creatinine 0.87 Est Cr Clr Drug Dosing 38.9 C-Reactive Protein 5.14 H 01/31/19 01/31/19 01/31/19 10:24 10:24 10:24 WBC 14.08 H Neut # (Auto) 7.94 H ESR > 90 H Creatinine 1.09 Est Cr Clr Drug Dosing Not Reportable C-Reactive Protein - Risk Factors for Resistance * Hospitalization for 48 hours or more within the past 90 days * History of infection with a multidrug-resistant organism: MRSA right/left great toe 01/16/19; ESBL E. coli right great toe 10/05/18; * Antimicrobial use within the last 90 days- rocephipalomo grissomy - Assessment & Plan Assessment 78 year old F resident of [facility] presented for evaluation of hypoglycemia, patient with recent admission 01/21-01/24 with treatment of hypoglycemia + management of right great toe osteomyelitis, also with left great toe wound which previously was xray negative for osteo- CT scan now suggestive of osteo. 01/16 wound culture grew MRSA and serratia, ID was consulted and patient was on doxycycline which was completed on 01/26. Per H&P amputation/vascular intervention deferred due to severe PAD. Starting vancomycin/zosyn for osteomyelitis- ID consulted. Plan Vancomycin IV * Estimated PK Parameters: Vd 0.7 L/kg, Tito [id number] hr-1, t1/2 18 hr * Loading dose: 1250 mg (23.4 mg/kg) * Maintenance dose: 750 mg IV (14.1 mg/kg) every 18 hours * Since treating osteo would like to target high end of goal range, some elderly female lower body weight patients tend to eliminate vancomycin quickly, therefore will dose at half life for now- will need adjusted with change in renal function * Goal trough level 15-20 mcg/mL * Trough ordered for 02/03 @0230 Pharmacy will continue to follow and will adjust dose/frequency as necessary. Thank you.
[2019-02-01] MEDS: INSULIN ASPART 100 UNITS/ML 3 ML PEN SC SCH ×4 (09:38→21:24)
[2019-02-01] MEDS: CHOLECALCIFEROL (VITAMIN D) 400 UNITS TABLET PO SCH (09:39)
[2019-02-01] MEDS: predniSONE 5 MG TAB PO SCH (09:40)
[2019-02-01] MEDS: GABAPENTIN 100 MG CAP PO SCH ×2 (09:40→16:53)
[2019-02-01] MEDS: TERBINAFINE HCL 250 MG TAB PO SCH (09:40)
[2019-02-01] MEDS: QUETIAPINE FUMARATE 25 MG TABLET PO SCH ×2 (09:40→20:20)
[2019-02-01] MEDS: FUROSEMIDE 40 MG TAB PO SCH (09:41)
[2019-02-01] MEDS: LORATADINE 10 MG TAB PO SCH (09:41)
[2019-02-01] MEDS: SPIRONOLACTONE 25 MG TAB PO SCH (09:42)
[2019-02-01] MEDS: DOCUSATE SODIUM 100 MG CAP PO SCH ×2 (09:42→20:19)
[2019-02-01] MEDS: MULTIVITAMIN TAB PO SCH (09:42)
[2019-02-01] MEDS: carvediloL 12.5 MG TAB PO SCH ×2 (09:42→16:47)
[2019-02-01] MEDS: ASPIRIN 81 MG ECTAB PO SCH (09:42)
[2019-02-01] MEDS: LOSARTAN POTASSIUM 25 MG TAB PO SCH (09:42)
[2019-02-01] MEDS: DULOXETINE HCL 30 MG CAP PO SCH (09:42)
--- NOTE | 2019-02-01 09:53 | Hospitalist Progress Note ---
Date of Service February 01, 2019 Assessment & Plan (1) Hypoglycemia: (2) Diabetes mellitus, type 2: -Hospital day 2 -Admitted to [facility] w/ telemetry -> will transfer off telemetry today -Patient presenting from [facility] for evaluation of hypoglycemia -Recent admission to [facility] 01/21 through 01/24 for hypoglycemia and management of right great toe osteomyelitis -At discharge, patient's insulin was decreased -Per discussion with [facility] staff, patient has had a continued poor appetite. Levemir was reduced on 01/29 from 25 units to 20 units. For the past several days, patient has been having episodes of hypoglycemia. She did not receive any insulin yesterday. According to intermediate staff, blood sugar was 451 this morning and patient received 7 units of NovoLog. Shortly after, patient developed symptomatic hypoglycemia in the 20s. -HgbA1c 8.4 01/22/2019 -Received 2 doses of IV D50 in the ED and placed on D10 drip with improvement in blood sugars -Blood sugars remained stable -Patient ate 100% of breakfast tray this morning -Monitor food intake closely; continue conservative NovoLog coverage ordered -Given patient's recent inconsistent and poor appetite, long-acting insulin likely will not be indicated (3) Osteomyelitis: -During recent admission, x-ray showed osteomyelitis the right great toe; no signs of osteomyelitis on x-ray of left great toe; unable to obtain MRI due to pacemaker -Had been on doxycycline per wound care center; patient was evaluated by ID during recent admission who advised to continue doxycycline; patient completed course on 01/26 -Wound culture from 01/16 grew MRSA and Serratia -Per daughter, patient has been evaluated by orthopedics and vascular surgery as an outpatient for possible amputation however given her underlying severe PAD, this was deferred -CT scans of bilateral great toes showing signs of osteomyelitis -Orthopedics and ID consult -On IV Vanco and IV Rocephin per most recent wound cultures growing MRSA and Serratia -WBC 14 K -> 9.7K today; does not appear septic -ESR > 90, CRP 5.1; continue to trend (4) Ischemic cardiomyopathy: (5) ICD (implantable cardioverter-defibrillator) in place: -Echo 09/2018 EF 30 to 35% -Appears euvolemic on exam -Continue diuretics, beta-chaparro, and aspirin (6) PAD (peripheral artery disease): -Continue aspirin (7) PMR (polymyalgia rheumatica): -Continue chronic prednisone (8) Dementia: -Continue home medications (9) Pacemaker: -No acute issues (10) DVT prophylaxis: -SQ Lovenox Supervising Physician Co-Signing Physician Notes Pt was seen and examined. Agreed with Madison TRIVEDI exam, assessment and plan. Lying in bed with no distress. Pt is at baseline. Denies any chest pain, palpitation and SOB. BS has been stable. We will continue hold her baseline Levemir since her appetite has been fluctuated that lead to hypoglycemic episode. We will continue Novolog before meal for now. Osteomyelitis of the big toes, CT left foot showed A focal 4 mm indentation at the distal tuft of the first toe with loss of the normal cortex. This raises the possibility of osteomyelitis. CT of right foot showed interval progression of septic arthritis/osteomyelitis at the interphalangeal joint of the first toe and subcutaneous infiltration and skin thickening of the first toe suggests cellulitis. ID on board recommended to continue IV Rocephin and Vanco. Ortho eval pending. Continue monitor closely. MD Rasheed Subjective Patient seen and examined. Resting in bed, offers no complaints. Underlying advanced dementia, unable to provide any meaningful history. Physical Exam Constitutional: WD/WN, vitals as above no acute distress Resting in bed Respiratory: normal respiratory effort, lungs clear to auscultation Cardiovascular: Rate/Rhythm: regular rate and regular rhythm Vessels: normal peripheral pulses Extremities: no edema Gastrointestinal (Abdomen): Inspection/Auscultation: normal bowel sounds Pe rcussion/Palpation: abdomen soft; abdomen nontender Skin: Wounds noted to lateral aspects of bilateral great toes, no significant drainage or surrounding erythema noted Psychiatric: Orientation: alert; + not oriented to person, + not oriented to place and + not oriented to time Pleasantly confused Results & Data Vital Signs (Past 12 Hours) Vital Signs Temp Pulse Pulse Resp BP Pulse Ox 02/01/19 07:53 36.5 C 78 20 116/65 91 02/01/19 07:50 72 01/31/19 23:11 36.5 C 80 18 90/55 L 97 Laboratory Results Short CBC 01/31/19 02/01/19 Range/Units 10:24 06:53 WBC 14.08 H 9.74 (4.8-10.8) K/uL Hgb 11.0 L 10.0 L (12.0-16.0) g/dL Hct 33.8 L 31.3 L (37-47) % Plt Count 323 293 (130-400) K/uL BMP 01/31/19 02/01/19 10:24 06:53 Sodium 132 L 134 L Potassium 3.3 L 4.0 D Chloride 95 L 99 Carbon Dioxide 31 29 BUN 22 H 11 Creatinine 1.09 0.87 Glucose 25 L* 179 H Calcium 9.0 8.4 L Liver Function 01/31/19 Range/Units 10:24 Total Bilirubin 0.3 (0.2-1) mg/dl AST 24 (15-37) U/L ALT 25 (12-78) U/L Alkaline Phosphatase 93 (45-117) U/L Albumin 2.7 L (3.4-5.0) gm/dl (1) Osteomyelitis Laterality: right Osteomyelitis location: foot Osteomyelitis type: un specified type Qualified Code(s): M86.9 - Osteomyelitis, unspecified
--- NOTE | 2019-02-01 10:16 | Infectious Disease Consult ---
Date of Consultation February 01, 2019 Assessment & Plan (1) Osteomyelitis of great toe: 78-year-old female with diabetes and peripheral vascular disease with bilateral great toe osteomyelitis, appears clinically to have improved with antibiotic therapy. While in hospital, would continue patient on current therapy with vancomycin and ceftriaxone. Will consider change to oral antibiotics at time of discharge, will likely need prolonged course to ensure adequacy of therapy. Hopefully can avoid amputation as well significantly impact patient's walking ability. Will follow. History of Present Illness Reason for Consultation: Right great toe osteomyelitis Attending Physician: Awa Iqbal MD History of Present Illness .78-year-old female with history of diabetes mellitus, peripheral arterial disease, coronary artery disease, polymyalgia rheumatica, hypertension, status post ICD placement, who was recently hospitalized with evidence of right great toe osteomyelitis as well as cellulitis involving the left great toe without obvious osteomyelitis on x-ray. She was treated with IV antibiotics and disc harged on oral doxycycline therapy. She was now readmitted with severe hypoglycemia, she has had some improvement in her toe infection with decrease in the redness and swelling, but CT scan of the toe shows evidence of right toe osteomyelitis as well as possible osteomyelitis at the tip of the left toe. In looking at previous pictures, there appears to be significant improvement in toe exam with decrease in the redness and swelling as well as improvement in ulceration. She has not had any significant fever or chills reported. Previous cultures positive for MRSA and Serratia, currently on vancomycin and Zosyn. Follow-up cultures are pending. Allergies Allergy/AdvReac Type Severity Reaction Status Date / Time Bactrim Allergy Unknown . Verified 09/05/17 16:36 lisinopril Allergy Unknown Unknown Verified 01/31/19 09:59 Penicillins Allergy Unknown ON Verified 01/31/19 09:59 ELMCROFT LIST sulfamethoxazole Allergy Unknown ON Verified 01/31/19 09:59 ELMCROFT LIST trimethoprim Allergy Unknown ON Verified 01/31/19 09:59 ELMCROFT LIST atorvastatin AdvReac Intermediate MUSCLE PAIN Verified 01/31/19 09:59 capsaicin AdvReac Intermediate N/V Verified 01/31/19 09:59 diclofenac AdvReac Intermediate N/V Verified 01/31/19 09:59 Diclopak AdvReac Intermediate N/V Verified 09/05/17 13:27 rosuvastatin AdvReac Intermediate MUSCLE PAIN Verified 01/31/19 09:59 fenofibrate AdvReac Mild SORE MOUTH Verified 01/31/19 09:59 Home Medications Home Medications Medication Instructions Recorded Confirmed Type aspirin [Aspirin Low Dose] 81 mg PO QAM 12/22/17 01/31/19 History carvedilol 12.5 mg PO BID 12/22/17 01/31/19 History cholecalciferol (vitamin D3) 400 unit PO QAM 12/22/17 01/31/19 History fluticasone propionate 1 spray INTRANASAL QAM 12/22/17 01/31/19 History gabapentin 100 mg PO BID 12/22/17 01/31/19 History loratadine 10 mg PO QAM 12/22/17 01/31/19 History ranitidine HCl 150 mg PO BID 12/22/17 01/31/19 History tolterodine [Detrol] 1 mg PO HS 12/22/17 01/31/19 History duloxetine 30 mg PO QAM 09/10/18 01/31/19 History losartan 25 mg PO QAM 09/10/18 01/31/19 History melatonin 3 mg PO HS 09/10/18 01/31/19 History quetiapine 50 mg PO QAM 09/10/18 01/31/19 History quetiapine 75 mg PO HS 09/10/18 01/31/19 History One-A-Day Women's 50 Plus 1 tab PO QAM 10/26/18 01/31/19 History butalbital 50 mg-acetaminophen 325 1 cap PO Q4H PRN cap 11/23/18 01/31/19 History mg-caffeine 40 mg-codeine 30 mg cap prednisone 5 mg PO QAM 12/22/18 01/31/19 History nystatin 1 applic TOPICAL DIRECTED 01/21/19 01/31/19 History Levemir FlexTouch U-100 Insuln 20 unit SUBCUT HS #0 ml 01/24/19 01/31/19 Rx Novolog Flexpen U-100 Insulin 7 unit SUBCUT TID #0 ml 01/24/19 01/31/19 Rx lorazepam 0.5 mg PO TID PRN 01/29/19 01/31/19 History spironolactone 37.5 mg PO QAM 01/29/19 01/31/19 History terbinafine HCl 250 mg PO DAILY 01/29/19 01/31/19 History docusate sodium 100 mg PO BID 01/31/19 01/31/19 History furosemide 40 mg PO QAM 01/31/19 01/31/19 History Patient History Medical History Ischemic cardiomyopathy (Chronic) History of left common carotid artery stent placement (Chronic) PAD (peripheral artery disease) (Chronic) LSFA/popliteal/peroneal artery angioplasty on 06/01/17 Chronic systolic heart failure (Chronic) PMR (polymyalgia rheumatica) (Chronic) Dementia (Chronic) HTN (hypertension) (Chronic) GERD (gastroesophageal reflux disease) (Chronic) PVD (peripheral vascular disease) (Chronic) ICD (implantable cardioverter-defibrillator) in place (Chronic) Pacemaker (Chronic) Cholelithiasis (Chronic) Osteomyelitis (Chronic) Coronary artery disease (Chronic) "s/p SC" History of bradycardia (Chronic) Diabetes mellitus, type 2 (Chronic) Statin intolerance (Chronic) RADHA inhibitor intolerance (Chronic) Carotid arterial disease (Chronic) Surgical History S/P CABG x 2 (Chronic) Status post cataract extraction (Chronic) Status post tubal ligation (Chronic) Family History Brother Diabetes Sister Diabetes Social History Preferred Language: Icelandic Communication Ability: Effective Sp[employer]cher Required: No Beliefs That Will Affect Care: None marital status: / Current Living Situation: Personal Care Facility Current Living Situation Comment: [facility] dementia unit current occupational status: retired Other Information That Helps Us Care for You: No Feels Safe at Home: Yes Safety Concerns: Feels Safe At This Time Smoking Status: Never smoker Do You Dip or Chew Tobacco: No ; Second Hand Exposure: No ; Tobacco Cessation Education Requested by Patient: No Hx Alcohol Use: No Hx Substance Use: No Review of Systems Review of Systems: All systems reviewed & are unremarkable except as noted in HPI & below Physical Exam Constitutional: WD/WN, vitals as above comfortable; no acute distress Eyes: PERRL, conjunctivae normal, anicteric sclerae ENMT: external ear and nose normal, oropharynx normal Neck: trachea midline, no thyromegaly neck nontender Respiratory: normal respiratory effort, lungs clear to auscultation normal percussion; does not use accessory muscles Cardiovascular: Rate/Rhythm: regular rate and regular rhythm Heart Sounds: normal S1 and normal S2; no gallop, no murmur and no cardiac rub Vessels: normal peripheral pulses; no JVD Gastrointestinal (Abdomen): normal bowel sounds, soft, nontender, no hepatosplenomegaly Musculoskeletal: no cyanosis or clubbing, extremities motor strength 5/5 Spine: thoracic spine normal to inspection and lumbar spine normal to inspection; no cervical spinal tenderness Skin: no rashes, warm and dry normal turgor and + wound (Right and left great toe medial ulcerations, superficial appearing, slight ) Neurologic: patellar DTR's 2+ bilat, sensation intact no focal motor deficits Psychiatric: A+Ox3, euthymic affect Orientation: cooperative Lymphatic: no cervical or axillary lymphadenopathy no inguinal lymphadenopathy Results & Data Vital Signs (Past 12 Hours) Vital Signs Temp Pulse Pulse Resp BP Pulse Ox 02/01/19 07:53 36.5 C 78 20 116/65 91 02/01/19 07:50 72 01/31/19 23:11 36.5 C 80 18 90/55 L 97 Laboratory Results Short CBC 02/01/19 Range/Units 06:53 WBC 9.74 (4.8-10.8) K/uL Hgb 10.0 L (12.0-16.0) g/dL Hct 31.3 L (37-47) % Plt Count 293 (130-400) K/uL BMP 01/31/19 02/01/19 10:24 06:53 Sodium 132 L 134 L Potassium 3.3 L 4.0 D Chloride 95 L 99 Carbon Dioxide 31 29 BUN 22 H 11 Creatinine 1.09 0.87 Glucose 25 L* 179 H Calcium 9.0 8.4 L Liver Function 01/31/19 Range/Units 10:24 Total Bilirubin 0.3 (0.2-1) mg/dl AST 24 (15-37) U/L ALT 25 (12-78) U/L Alkaline Phosphatase 93 (45-117) U/L Albumin 2.7 L (3.4-5.0) gm/dl Diagnostic Findings cc: ~ LEFT FOOT CT CT DOSE: 136.60 mGy.cm HISTORY: eval for left great toe osteomyelitis TECHNIQUE: Multiaxial CT images of the left foot were performed and reformatted in the sagittal and coronal plane without the use of contrast. A dose lowering technique was utilized adhering to the principles of ALARA. COMPARISON: Left first toe 01/21/2019. FINDINGS: Please refer to the same day CT of the right foot for further evaluation of the right first toe abnormality. There is motion artifact within the left foot resulting in suboptimal evaluation. The bones are osteopenic. A focal 4 mm cortical indentation at the distal tuft of the first toe with loss of the normal cortex. This raises the possibility of osteomyelitis. Vascular calcifications are noted. Mild to moderate degenerative changes within the foot. There are flexion deformities seen throughout the toes. Mild subcutaneous edema seen throughout the foot most pronounced within the first digit. IMPRESSION: A focal 4 mm indentation at the distal tuft of the first toe with loss of the normal cortex. This raises the possibility of osteomyelitis. Electronically signed by: Mushtaq Lopez M.D. 01/31/2019 5:03 PM Dictated: 01/31/191656 Transcribed: 01/31/191656 cc: ~ CT foot RT wo con CLINICAL HISTORY: 78 years-old Female presenting with eval for right great toe osteomyelitis. TECHNIQUE: Multidetector CT of the right foot was performed without the use of intravenous contrast. IV contrast: None. One or more dose lowering techniques were used consistent with the principles of ALARA (as low as reasonably achievable), including automatic exposure control, mA or kV adjustment to individual patient size, and/or use of iterative reconstruction. COMPARISON: Plain radiographs from 01/21/[address] from 07/27/2018. CT DOSE (mGy.cm): The estimated cumulative dose is 136.60. FINDINGS: Vp Integrity topogram: Unremarkable. Subcutaneous fat infiltration and skin thickening in the first toe. There is also mild subcutaneous edema noted diffusely. There may also be focal subcutaneous infiltration and skin thickening along the lateral aspect of the fifth metatarsophalangeal joint. No rim-enhancing collection to suggest abscess. Mild muscle atrophy is suggested. Atherosclerosis. There may also be soft tissue irregularity of the plantar aspect of the forefoot at the level of the second and third metatarsophalangeal joints. Chronic deformity at the interphalangeal joint of the first toe with comminuted fracturing/disintegration of the head of the proximal phalanx. There is also some erosions suggested at the base of the distal phalanx. This is centered at the interphalangeal joint. Findings have progressed since the prior exam. Osteopenia. This limits evaluation for osteomyelitis and nondisplaced fracture. Degenerative changes at the ankle mortise. No additional sites of osseous erosion. IMPRESSION: 1. Interval progression of septic arthritis/osteomyelitis at the interphalangeal joint of the first toe. 2. Subcutaneous infiltration and skin thickening of the first toe suggests cellulitis. 3. Similar findings along the lateral aspect at the level of the fifth metatarsophalangeal joint. Correlate clinically to exclude cellulitis in these regions. 4. Questionable plantar ulceration over the second and third metatarsophalangeal joints. Correlate clinically. 5. Allowing for osteopenia, no acute fracture. 6. Degenerative changes of the ankle mortise. Electronically signed by: Leonel Gomez M.D. 01/31/2019 4:56 PM PG Care Time/CCT Total # of Minutes Spent Total Time Spent with Patient: Total time spent is greater than 50% in coordination of care (as documented) at patient's floor/unit and/or counseling patient:
[2019-02-01] MEDS: VANCOMYCIN HCL 750 MG in SODIUM CHLORIDE 0.9% 250 ML IV SCH (14:00)
[2019-02-01] MEDS: ENOXAPARIN INJ 40 MG/0.4 ML SYR SQ SCH (16:50)
[2019-02-01] MEDS: cefTRIAXone SODIUM 1,000 MG in DEXTROSE 5% 50 ML IV SCH (20:11)
[2019-02-01] MEDS: TOLTERODINE TARTRATE 1 MG TAB PO SCH (20:20)
[2019-02-01] MEDS ORDERED: VANCOMYCIN HCL 750 MG in SODIUM CHLORIDE 0.9% 250 ML IV SCH (21:00)
[2019-02-02 07:57] LABS: Hematocrit (blood only) 30.8 % (37-47); Hemoglobin 9.7 g/dL (12.0-16.0); Mean Corpuscular Hemoglobin 27.2 pg (25-34); Mean Corpuscular Hgb Conc 31.5 g/dL (32-36); Mean Corpuscular Volume 86.3 fL (80-100); Mean Platelet Volume 9.3 fL (7.4-10.4); Platelet Count 316 K/uL (130-400); RDW Coefficient of Variation 17.7 % (11.5-14.5); RDW Standard Deviation 56.2 fL (36.4-46.3); Red Blood Count 3.57 M/uL (4.2-5.4); White Blood Count 9.07 K/uL (4.8-10.8)
[2019-02-02] MEDS: INSULIN ASPART 100 UNITS/ML 3 ML PEN SC SCH ×4 (07:58→21:17)
[2019-02-02] MEDS: MULTIVITAMIN TAB PO SCH (07:59)
[2019-02-02] MEDS: LORATADINE 10 MG TAB PO SCH (07:59)
[2019-02-02] MEDS: predniSONE 5 MG TAB PO SCH (07:59)
[2019-02-02] MEDS: DOCUSATE SODIUM 100 MG CAP PO SCH ×2 (07:59→21:18)
[2019-02-02] MEDS: GABAPENTIN 100 MG CAP PO SCH ×2 (07:59→17:47)
[2019-02-02] MEDS: QUETIAPINE FUMARATE 25 MG TABLET PO SCH ×2 (08:00→21:19)
[2019-02-02] MEDS: SPIRONOLACTONE 25 MG TAB PO SCH (08:01)
[2019-02-02] MEDS: carvediloL 12.5 MG TAB PO SCH ×2 (08:02→17:49)
[2019-02-02] MEDS: DULOXETINE HCL 30 MG CAP PO SCH (08:02)
[2019-02-02] MEDS: TERBINAFINE HCL 250 MG TAB PO SCH (08:02)
[2019-02-02] MEDS: CHOLECALCIFEROL (VITAMIN D) 400 UNITS TABLET PO SCH (08:04)
[2019-02-02] MEDS: LOSARTAN POTASSIUM 25 MG TAB PO SCH (08:04)
[2019-02-02] MEDS: FUROSEMIDE 40 MG TAB PO SCH (08:04)
[2019-02-02] MEDS: ASPIRIN 81 MG ECTAB PO SCH (08:05)
[2019-02-02] MEDS: VANCOMYCIN HCL 750 MG in SODIUM CHLORIDE 0.9% 250 ML IV SCH (08:09)
[2019-02-02 08:24] LABS: BUN Creatinine Ratio 13.3 (10-20); C Reactive Protein 1.69 mg/dl (0-0.29); Calcium 8.6 mg/dl (8.5-10.1); Creatinine Clr Calc Pharmacy 37.6 ml/min; Est GFR (African American) 71.5; Est GFR (Non-African American) 61.7; Potassium 3.8 mmol/L (3.5-5.1)
--- NOTE | 2019-02-02 10:01 | Hospitalist Progress Note ---
Date of Service February 02, 2019 Assessment & Plan (1) Hypoglycemia: (2) Diabetes mellitus, type 2: -Hospital day 3 -Patient presenting from [facility] for evaluation of hypoglycemia -Recent admission to [facility] 01/21 through 01/24 for hypoglycemia and management of right great toe osteomyelitis -At discharge, patient's insulin was decreased -Per discussion with [facility] staff, patient has had a continued poor appetite. Levemir was reduced on 01/29 from 25 units to 20 units. For the past several days, patient has been having episodes of hypoglycemia. She did not receive any insulin yesterday. According to [facility] staff, blood sugar was 451 this morning and patient received 7 units of NovoLog. Shortly after, patient developed symptomatic hypoglycemia in the 20s. -HgbA1c 8.4 01/22/2019 -Received 2 doses of IV D50 in the ED and placed on D10 drip with improvement in blood sugars -Blood sugars remained stable; has had a couple of readings of over 200; fasting glucose 180 this morning -Would allow for more labile control secondary to advanced age and episodes of hypoglycemia -Monitor food intake closely; continue conservative NovoLog coverage as ordered -Given patient's recent inconsistent and poor appetite, long-acting insulin likely will not be indicated (3) Osteomyelitis: -During recent admission, x-ray showed osteomyelitis the right great toe; no signs of osteomyelitis on x-ray of left great toe; unable to obtain MRI due to pacemaker -Had been on doxycycline per wound care center; patient was evaluated by ID during recent admission who advised to continue doxycycline; patient completed course on 01/26 -Wound culture from 01/16 grew MRSA and Serratia -Per daughter, patient has been evaluated by orthopedics and vascular surgery as an outpatient for possible amputation however given her underlying severe PAD, this was deferred -CT scans of bilateral great toes showing signs of osteomyelitis -On IV Vanco and IV Rocephin (day #3) per most recent wound cultures growing MRSA and Serratia -ID recommends remaining on IV Vanco and Rocephin for now -Awaiting Ortho eval -WBC 14 K -> 9.7K -> 9K today -ESR > 90 -> 76, CRP 5.1 -> 1.6; continue to trend (4) Ischemic cardiomyopathy: (5) ICD (implantable cardioverter-defibrillator) in place: -Echo 09/2018 EF 30 to 35% -Appears euvolemic on exam -Continue diuretics, beta-chaparro, and aspirin (6) PAD (peripheral artery disease): -Continue aspirin (7) PMR (polymyalgia rheumatica): -Continue chronic prednisone (8) Dementia: -Continue home medications (9) Pacemaker: -No acute issues (10) DVT prophylaxis: -SQ Lovenox Supervising Physician Co-Signing Physician Notes Pt was seen and examined. Agreed with Madison JIMENES exam, assessment and plan. Lying in bed with no distress. Pt is at baseline. Denies any chest pain, palpitation and SOB. BS has been stable. We will continue Novolog before meal for now. We will had Low dose of Basal insulin. Will consider pharmacy consult for glycemic management. Osteomyelitis of the big toes, CT left foot showed A focal 4 mm indentation at the distal tuft of the first toe with loss of the normal cortex. This raises the possibility of osteomyelitis. CT of right foot showed interval progression of septic arthritis/osteomyelitis at the interphalangeal joint of the first toe and subcutaneous infiltration and skin thickening of the first toe suggests cellulitis. Case discussed with Ortho Dr. García for possible amputation. ID on board and case discussed with Dr. Curry that recommended to change abx with IV dapo and Cipro for 6 weeks course. Continue monitor closely. MD Rasheed Subjective Patient seen and examined. Resting in bed, no acute distress. Offers no complaints. Underlying advanced dementia, unable to provide any meaningful history. Physical Exam Constitutional: no acute distress Resting in bed Respiratory: normal respiratory effort; no respiratory distress Auscultation: + diminished lung sounds (Poor inspiratory effort) Cardiovascular: Rate/Rhythm: regular rate and regular rhythm Vessels: normal peripheral pulses Extremities: no edema Gastrointestinal (Abdomen): Inspection/Auscultation: normal bowel sounds Percussion/Palpation: abdomen soft; abdomen nontender Skin: Dressings in place to bilateral great toes Psychiatric: Orientation: alert; + not oriented to person, + not oriented to place and + not oriented to time Results & Data Vital Signs (Past 12 Hours) Vital Signs Temp Pulse Resp BP BP Pulse Ox 02/02/19 08:02 36.4 C L 70 16 137/66 97 02/01/19 23:58 36.5 C 81 20 116/63 97 Laboratory Results Short CBC 02/02/19 Range/Units 06:25 WBC 9.07 (4.8-10.8) K/uL Hgb 9.7 L (12.0-16.0) g/dL Hct 30.8 L (37-47) % Plt Count 316 (130-400) K/uL [facility] 02/02/19 06:25 Sodium 132 L Potassium 3.8 Chloride 99 Carbon Dioxide 30 BUN 12 Creatinine 0.90 Glucose 180 H Calcium 8.6 (1) Osteomyelitis Laterality: right Osteomyelitis location: foot Osteomyelitis type: unspecified type Qualified Code(s): M86.9 - Osteomyelitis, unspecified
--- NOTE | 2019-02-02 14:22 | Infectious Disease Progress Nt ---
Date of Service February 02, 2019 Assessment & Plan (1) Osteomyelitis of great toe: 78-year-old female with diabetes and peripheral vascular disease with bilateral great toe osteomyelitis, appears clinically to have improved with antibiotic therapy. Will require prolonged i.e 6 weeks of IV abx for osteomyelitis. Would recommend combination of daptomycin and oral ciprofloxacin to cover MRSA and Serratia. Discussed with hospitalist. Will continue to follow. (2) Serratia infection: (3) MRSA (methicillin resistant Staphylococcus aureus) infection: Subjective Patient seen in f/u for bilateral great toe osteomyelitis. Offers no complaints. Remains afebrile, tolerating Abx without apparent difficulty. Review of Systems Review of Systems: Unobtainable due to cognitive status Physical Exam Constitutional: WD/WN, vitals as above comfortable; no acute distress Eyes: PERRL, conjunctivae normal, anicteric sclerae ENMT: external ear and nose normal, oropharynx normal Neck: trachea midline, no thyromegaly neck nontender Respiratory: normal respiratory effort, lungs clear to auscultation normal percussion; does not use accessory muscles Cardiovascular: Rate/Rhythm: regular rate and regular rhythm Heart Sounds: normal S1 and normal S2; no gallop, no murmur and no cardiac rub Vessels: normal peripheral pulses; no JVD Gastrointestinal (Abdomen): normal bowel sounds, soft, nontender, no hepatosplenomegaly Musculoskeletal: no cyanosis or clubbing, extremities motor strength 5/5 Spine: thoracic spine normal to inspection and lumbar spine normal to inspection; no cervical spinal tenderness Skin: no rashes, warm and dry normal turgor and + wound (Right and left great toe medial ulcerations, superficial appearing, slight ) Neurologic: patellar DTR's 2+ bilat, sensation intact no focal motor deficits Psychiatric: A+Ox3, euthymic affect Orientation: cooperative Lymphatic: no cervical or axillary lymphadenopathy no inguinal lymp hadenopathy Results & Data Vital Signs (Past 12 Hours) Vital Signs Temp Pulse Resp BP Pulse Ox 02/02/19 08:02 36.4 C L 70 16 137/66 97 Laboratory Results Short CBC 02/02/19 Range/Units 06:25 WBC 9.07 (4.8-10.8) K/uL Hgb 9.7 L (12.0-16.0) g/dL Hct 30.8 L (37-47) % Plt Count 316 (130-400) K/uL BMP 02/02/19 06:25 Sodium 132 L Potassium 3.8 Chloride 99 Carbon Dioxide 30 BUN 12 Creatinine 0.90 Glucose 180 H Calcium 8.6 PG Care Time/CCT Total # of Minutes Spent Total Time Spent with Patient: Total time spent is greater than 50% in coordination of care (as documented) at patient's floor/unit and/or counseling patient:
[2019-02-02] MEDS: ENOXAPARIN INJ 40 MG/0.4 ML SYR SQ SCH (17:45)
[2019-02-02] MEDS: cefTRIAXone SODIUM 1,000 MG in DEXTROSE 5% 50 ML IV SCH (19:07)
[2019-02-02] MEDS: TOLTERODINE TARTRATE 1 MG TAB PO SCH (21:19)
--- NOTE | 2019-02-02 21:55 | Orthopedic Consultation ---
Date of Consultation February 02, 2019 Assessment & Plan (1) Osteomyelitis of great toe of left foot: The patient's exam and hx were discussed with Dr. García. At this time, we will continue conservative management with antibiotics per infectious disease--IV Daptomycin and oral Cipro. Reviewing the vascular visit from November of this year, the patient has dopplerable pulses in the left foot. With the chronic nature of the patient's toe ulcer and osteomyelitis, a great toe amputation could be a potential option. However, her healing may be very slow or she may not be able to heal the wound which could lead to more severe infection or possible need for a procedure such as a BKA. The right foot has worse arterial occlusions and in comparison to the wound description in the vascular visit, the ulceration seems to be getting larger at the great toe. CT confirms osteomyelitis in the right great toe as well. She does not appear to be a good surgical candidate for an open bypass type surgery of the right LE. A great toe amputation would not be a good option for the right foot. We would have to discuss a surgical option of BKA with vascular if they felt she has the blood flow to heal that flap. Conservative management will be the best option at this time for the right foot. Dr. García will visit with the patient tomorrow and evaluate her wounds. Conservative vs. surgical management can be discussed with the patient's daughter who is POA. 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 All hx was obtained from discussion with the patient's nurse and chart review. This is a patient with a long hx of great toe ulcerations and PVD. She has been treated conservatively for osteomyelitis. She has not had any surgical tx for either great toe. Wound care and antibiotics have been the only tx. She had a vascular procedure done on the LLE in 2018 which has helped some of her blood flow to the left foot. She had pulses in the left foot detected with a doppler in a vascular visit in November of this year. The RLE did not have pulses detected with a doppler. She would need an open procedure for bypass but at this time, it was felt she wasn't a candidate for this procedure. We were consulted for evaluation of the ulcers and for evaluation for possible surgical vs. conservative management. Allergies Allergy/AdvReac Type Severity Reaction Status Date / Time Bactrim Allergy Unknown . Verified 09/05/17 16:36 lisinopril Allergy Unknown Unknown Verified 01/31/19 09:59 Penicillins Allergy Unknown ON Verified 01/31/19 09:59 ELMCROFT LIST sulfamethoxazole Allergy Unknown ON Verified 01/31/19 09:59 ELMCROFT LIST trimethoprim Allergy Unknown ON Verified 01/31/19 09:59 ELMCROFT LIST atorvastatin AdvReac Intermediate MUSCLE PAIN Verified 01/31/19 09:59 capsaicin AdvReac Intermediate N/V Verified 01/31/19 09:59 diclofenac AdvReac Intermediate N/V Verified 01/31/19 09:59 Diclopak AdvReac Intermediate N/V Verified 09/05/17 13:27 rosuvastatin AdvReac Intermediate MUSCLE PAIN Verified 01/31/19 09:59 fenofibrate AdvReac Mild SORE MOUTH Verified 01/31/19 09:59 Home Medications Home Medications Medication Instructions Recorded Confirmed Type aspirin [Aspirin Low Dose] 81 mg PO QAM 12/22/17 01/31/19 History carvedilol 12.5 mg PO BID 12/22/17 01/31/19 History cholecalciferol (vitamin D3) 400 unit PO QAM 12/22/17 01/31/19 History fluticasone propionate 1 spray INTRANASAL QAM 12/22/17 01/31/19 History gabapentin 100 mg PO BID 12/22/17 01/31/19 History loratadine 10 mg PO QAM 12/22/17 01/31/19 History ranitidine HCl 150 mg PO BID 12/22/17 01/31/19 History tolterodine [Detrol] 1 mg PO HS 12/22/17 01/31/19 History duloxetine 30 mg PO QAM 09/10/18 01/31/19 History losartan 25 mg PO QAM 09/10/18 01/31/19 History melatonin 3 mg PO HS 09/10/18 01/31/19 History quetiapine 50 mg PO QAM 09/10/18 01/31/19 History quetiapine 75 mg PO HS 09/10/18 01/31/19 History One-A-Day Women's 50 Plus 1 tab PO QAM 10/26/18 01/31/19 History butalbital 50 mg-acetaminophen 325 1 cap PO Q4H PRN cap 11/23/18 01/31/19 History mg-caffeine 40 mg-codeine 30 mg cap prednisone 5 mg PO QAM 12/22/18 01/31/19 History nystatin 1 applic TOPICAL DIRECTED 01/21/19 01/31/19 History Levemir FlexTouch U-100 Insuln 20 unit SUBCUT HS #0 ml 01/24/19 01/31/19 Rx Novolog Flexpen U-100 Insulin 7 unit SUBCUT TID #0 ml 01/24/19 01/31/19 Rx lorazepam 0.5 mg PO TID PRN 01/29/19 01/31/19 History spironolactone 37.5 mg PO QAM 01/29/19 01/31/19 History terbinafine HCl 250 mg PO DAILY 01/29/19 01/31/19 History docusate sodium 100 mg PO BID 01/31/19 01/31/19 History furosemide 40 mg PO QAM 01/31/19 01/31/19 History Patient History Medical History Ischemic cardiomyopathy (Chronic) History of left common carotid artery stent placement (Chronic) PAD (peripheral artery disease) (Chronic) LSFA/popliteal/peroneal artery angioplasty on 06/01/17 Chronic systolic heart failure (Chronic) PMR (polymyalgia rheumatica) (Chronic) Dementia (Chronic) HTN (hypertension) (Chronic) GERD (gastroesophageal reflux disease) (Chronic) PVD (peripheral vascular disease) (Chronic) ICD (implantable cardioverter-defibrillator) in place (Chronic) Pacemaker (Chronic) Cholelithiasis (Chronic) Osteomyelitis (Chronic) Coronary artery disease (Chronic) "s/p LA" History of bradycardia (Chronic) Diabetes mellitus, type 2 (Chronic) Statin intolerance (Chronic) RADHA inhibitor intolerance (Chronic) Carotid arterial disease (Chronic) Surgical History S/P CABG x 2 (Chronic) Status post cataract extraction (Chronic) Status post tubal ligation (Chronic) Family History Brother Diabetes Sister Diabetes Social History Preferred Language: Iranian Communication Ability: Impaired 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 Beliefs That Will Affect Care: None marital status: / Current Living Situation: Personal Care Facility Current Living Situation Comment: [facility] dementia unit current occupational status: retired Other Information That Helps Us Care for You: No Feels Safe at Home: Yes Safety Concerns: Feels Safe At This Time Smoking Status: Never smoker Do You Dip or Chew Tobacco: No ; Second Hand Exposure: No ; Tobacco Cessation Education Requested by Patient: No Hx Alcohol Use: No Hx Substance Use: No Physical Exam Constitutional: + altered mental status Musculoskeletal: Lying comfortably in bed. Cooperative with examination of each great toe. Left foot: ulceration at the medial aspect of the great toe nail. The ulcer is shallow. Mild erythema. Ulceration is ~1 cm x 0.6 cm. Right foot: ulceration at the plantar medial aspect of the great toe. Ulceration is ~2 cm x 1 cm. This seems to be larger than the ulcer description from an November 2018 exam that noted the size of a pencil eraser. The ulcer may appear slightly worse than the pictures in the chart. There is minimal erythema. Skin: + ulcer (Bilateral great toes--description in MS exam.) Psychiatric: Patient is awake but does not answer appropriately. Results & Data Vital Signs (Past 12 Hours) Vital Signs Temp Pulse Resp BP Pulse Ox 02/02/19 15:56 36.5 C 90 19 100/[address]: FINDINGS: Please refer to the same day CT of the right foot for further evaluation of the right first toe abnormality. There is motion artifact within the left foot resulting in suboptimal evaluation. The bones are osteopenic. A focal 4 mm cortical indentation at the distal tuft of the first toe with loss of the normal cortex. This raises the possibility of osteomyelitis. Vascular calcifications are noted. Mild to moderate degenerative changes within the foot. There are flexion deformities seen throughout the toes. Mild subcutaneous edema seen throughout the foot most pronounced within the first digit. IMPRESSION: A focal 4 mm indentation at the distal tuft of the first toe with loss of the normal cortex. This raises the possibility of osteomyelitis Right foot CT: Subcutaneous fat infiltration and skin thickening in the first toe. There is also mild subcutaneous edema noted diffusely. There may also be focal subcutaneous infiltration and skin thickening along the lateral aspect of the fifth metatarsophalangeal joint. No rim-enhancing collection to suggest abscess. Mild muscle atrophy is suggested. Atherosclerosis. There may also be soft tissue irregularity of the plantar aspect of the forefoot at the level of the second and third metatarsophalangeal joints. Chronic deformity at the interphalangeal joint of the first toe with comminuted fracturing/disintegration of the head of the proximal phalanx. There is also some erosions suggested at the base of the distal phalanx. This is centered at the interphalangeal joint. Findings have progressed since the prior exam. Osteopenia. This limits evaluation for osteomyelitis and nondisplaced fracture. Degenerative changes at the ankle mortise. No additional sites of osseous erosion. IMPRESSION: 1. Interval progression of septic arthritis/osteomyelitis at the interphalangeal joint of the first toe. 2. Subcutaneous infiltration and skin thickening of the first toe suggests cellulitis. 3. Similar findings along the lateral aspect at the level of the fifth metatarsophalangeal joint. Correlate clinically to exclude cellulitis in these regions. 4. Questionable plantar ulceration over the second and third metatarsophal angeal joints. Correlate clinically. 5. Allowing for osteopenia, no acute fracture. 6. Degenerative changes of the ankle mortise
[2019-02-02] MEDS ORDERED: NiCARDipine HCL INJ 2.5 MG/ML 10 ML AMP ONE (22:04)
[2019-02-02] MEDS ORDERED: HEPARIN (PORCINE) 1000 UNIT/ML 10 ML (CATH LAB USE ONLY) ONE (22:04)
[2019-02-02] MEDS ORDERED: fentaNYL citrate 100 MCG/2 ML VIAL ONE (22:05)
[2019-02-02] MEDS ORDERED: MIDAZOLAM HCL 1 MG/ML 2ML VIAL ONE (22:05)
[2019-02-02] MEDS ORDERED: NITROGLYCERIN/D5W 100MCG/ML 20ML SYR ONE (22:06)
[2019-02-03] MEDS ORDERED: VANCOMYCIN TROUGH ONE ×2 (02:30→20:30)
[2019-02-03 02:53] LABS: Hemoglobin 10.4 g/dL (12.0-16.0); Mean Corpuscular Hemoglobin 27.5 pg (25-34); Mean Corpuscular Hgb Conc 32.5 g/dL (32-36); Mean Corpuscular Volume 84.7 fL (80-100); Mean Platelet Volume 8.7 fL (7.4-10.4); Platelet Count 322 K/uL (130-400); RDW Coefficient of Variation 17.6 % (11.5-14.5); RDW Standard Deviation 55.2 fL (36.4-46.3); Red Blood Count 3.78 M/uL (4.2-5.4); White Blood Count 11.27 K/uL (4.8-10.8)
[2019-02-03 03:02] LABS: BUN Creatinine Ratio 13.2 (10-20); Calcium 8.7 mg/dl (8.5-10.1); Creatinine Clr Calc Pharmacy 30.2 ml/min; Est GFR (African American) 54.9; Est GFR (Non-African American) 47.3; Potassium 3.9 mmol/L (3.5-5.1)
[2019-02-03] MEDS: VANCOMYCIN HCL 750 MG in SODIUM CHLORIDE 0.9% 250 ML IV SCH (03:44)
[2019-02-03] MEDS: LOSARTAN POTASSIUM 25 MG TAB PO SCH (08:09)
[2019-02-03] MEDS: carvediloL 12.5 MG TAB PO SCH ×2 (08:10→17:23)
[2019-02-03] MEDS: TERBINAFINE HCL 250 MG TAB PO SCH (08:10)
[2019-02-03] MEDS: ASPIRIN 81 MG ECTAB PO SCH (08:10)
[2019-02-03] MEDS: predniSONE 5 MG TAB PO SCH (08:10)
[2019-02-03] MEDS: QUETIAPINE FUMARATE 25 MG TABLET PO SCH ×2 (08:11→20:49)
[2019-02-03] MEDS: LORATADINE 10 MG TAB PO SCH (08:11)
[2019-02-03] MEDS: DULOXETINE HCL 30 MG CAP PO SCH (08:11)
[2019-02-03] MEDS: MULTIVITAMIN TAB PO SCH (08:11)
[2019-02-03] MEDS: CHOLECALCIFEROL (VITAMIN D) 400 UNITS TABLET PO SCH (08:12)
[2019-02-03] MEDS: SPIRONOLACTONE 25 MG TAB PO SCH (08:12)
[2019-02-03] MEDS: FUROSEMIDE 40 MG TAB PO SCH (08:12)
[2019-02-03] MEDS: GABAPENTIN 100 MG CAP PO SCH ×2 (08:16→17:22)
[2019-02-03] MEDS: DOCUSATE SODIUM 100 MG CAP PO SCH ×2 (08:17→20:43)
--- NOTE | 2019-02-03 08:55 | Pharmacy Report ---
Pharmacy Abx Dose Short Note - Date of Service February 03, 2019 - Assessment & Plan Assessment 78 year old F receiving Vancomycin and rocephin for treatment of osteomyelitis of both R & L great toes - Patient comes from [facility] - Previous R great toe OM that grew MRSA and Serratia, completed course of oral doxycycline - Imaging of L great toe suggestive of OM - Conservative management determined to be the best option given severe PAD - ID recommending 6 weeks of abx with IV daptomycin and oral ciprofloxacin - Patient is afebrile, WBC trending up (9,100 --> 11,300), SCr trending up (0.90 --> 1.12) - Day #4 of vancomycin and rocephin therapy Plan Vancomycin * Trough level of 12.4 mcg/mL is subtherapeutic * Change to 1000 mg IV every 18 hours given subtherapeutic trough and increase in SCr * Goal trough level for OM: 15 to 20 mcg/mL * Trough level ordered for: 02/05/19 prior to 0800 dose Pharmacy will continue to follow and will adjust dose/frequency as necessary. Thank you.
[2019-02-03] MEDS: INSULIN ASPART 100 UNITS/ML 3 ML PEN SC SCH ×5 (09:13→23:19)
--- NOTE | 2019-02-03 11:48 | Orthopedic Progress Note ---
Date of Service February 03, 2019 Assessment & Plan (1) Osteomyelitis of great toe of left foot: At this time, we will continue conservative management with antibiotics per infectious disease--IV Daptomycin and oral Cipro. As of now, continue to monitor and treat conservatively. Will also await further vascular studies. Conservative vs. surgical management can be discussed with the patient's daughter who is POA. 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 cooperative with exam but not talking. does not appear in discomfort Physical Exam Physical Exam: Left foot: ulceration at the medial aspect of the great toe nail. The ulcer is shallow. Mild erythema. Ulceration is ~1 cm x 0.6 cm. no significant changes since yesterday exam. Right foot: ulceration at the plantar medial aspect of the great toe. Ulceration is ~2 cm x 1 cm. This seems to be larger than the ulcer description from an November 2018 exam that noted the size of a pencil eraser. The ulcer may appear slightly worse than the pictures in the chart. There is minimal erythema No significant change noted since exam yesterday. Results & Data Vital Signs (Past 12 Hours) Vital Signs Temp Pulse Resp BP Pulse Ox 02/03/19 07:56 36.8 C 86 20 131/72 96
[2019-02-03] MEDS: INSULIN DETEMIR FLEXPEN/FLEX TOUCH 100 UNITS/ML 3ML SC SCH (13:37)
[2019-02-03] MEDS ORDERED: PHARMACY GLYCEMIC MGMT CONSULT PRN (16:50)
[2019-02-03] MEDS: ENOXAPARIN INJ 40 MG/0.4 ML SYR SQ SCH (17:21)
--- NOTE | 2019-02-03 17:26 | Pharmacy Report ---
Glycemic Control Consultation - Date of Service February 03, 2019 - Scope Scope: Glycemic Pharmacist consulted for glycemic control and to write orders per [facility] inpatient glycemic control protocol - Objective Weight: 53.4 kg Accuchecks BSG (last 24hrs): 02/02/19 02/03/19 02/03/19 20:04 02:30 07:35 Glucose 281 H POC Glucose 231 H 254 H 02/03/19 02/03/19 02/03/19 12:10 16:25 16:27 Glucose POC Glucose 284 H 333 H* 314 H* Laboratory Data (last 24hrs): 02/03/19 02:30 Potassium 3.9 Carbon Dioxide 29 Anion Gap 7.0 Creatinine 1.12 Est Cr Clr Drug Dosing 30.2 HbA1c: 8.4% 01/22/19 - Recent Pertinent Medications Outpatient Anti-diabetic Regimen: * Insulin detemir (Levemir) 20 units SQ HS * NovoLog 7 units SQ TIDM * A1c = 8.4 % 01/22/19 The patient is currently receiving: * Basal insulin: Levemir 10 units every 24 hours - first dose this afternoon per provider * Correctional Insulin: Novolog Correction per scale ACHS Goal Range: Low 140 mg/dL - High 180 mg/dL Correction Factor: 40 mg/dL/unit * Prandial insulin: Per carb ratio of 1 unit per -- grams CHO consumed Risk Factors for Insulin Resistance: * Infection * Diet * Prednisone 5mg PO Daily {outpatient med} - Assessment & Plan Assessment & Plan: ASSESSMENT: * 78yo T2DM female known to pharmacy from previous admissions/glycemic consults - most recently 01/21/19 admission * Pt with hypoglycemia last admission and outpatient regimen was reduced. Again, admitted with hypoglycemia. Basal insulin has been held since admission, but now patient with rebound hyperglycemia. * 1/2 of outpatient basal insulin started by provider this afternoon * No CHO ratio ordered with bolus insulin * Will adjust orders similar to last admission and titrate based on BSG trends PLAN FOR INPATIENT GLYCEMIC CONTROL: * Basal insulin * Detemir (Levemir) 10 units SQ Q24hrs * Bolus insulin * NovoLog per scale ACHS or Q6hrs while NPO. Additional checks + coverage at 0000 & 0400 * Goal Range: Low 110 mg/dL - High 150 mg/dL * Correction Factor: 30 mg/dL/unit * Nutritional / Prandial insulin per carb ratio of 1 unit per 15 grams CHO consumed * Please note that the plan above was derived based on current level of insulin resistance and hospital stress. These recommendations are appropriate for inpatient admission only. Plan of care upon discharge will need to be reassessed to avoid potential outpatient hypo/hyperglycemia. Thank you.
--- NOTE | 2019-02-03 18:30 | Hospitalist Progress Note ---
Date of Service February 03, 2019 Assessment & Plan (1) Hypoglycemia: (2) Diabetes mellitus, type 2: Patient presenting from [facility] for hypoglycemia Recent admission to [facility] 01/21 through 01/24 for hypoglycemia and management of right great toe osteomyelitis Shee was discharge to [facility] on Levemir 20 units. Has been having poor appetite and continue received her Levemir 20units Developed Hypoglycemia in the 20's HgbA1c 8.4 01/22/2019 Basal insulin has been on hold BS has been elevated in the 300's since pt has been getting help with feeding Resume Levemir 10mg daily Pharmacy consulted for glycemic management Will encourage [facility] staff to assist pt with feeding Continue monitor BS (3) Osteomyelitis: During recent admission, x-ray showed osteomyelitis the right great toe; no signs of osteomyelitis on x-ray of left great toe; unable to obtain MRI due to pacemaker Had been on doxycycline per wound care center; patient was evaluated by ID during recent admission who advised to continue doxycycline; patient completed course on 01/26 Wound culture from 01/16 grew MRSA and Serratia Per daughter, patient has been evaluated by orthopedics and vascular surgery as an outpatient for possible amputation however given her underlying severe PAD, this was deferred CT scans of bilateral great toes showing signs of osteomyelitis On IV Vanco and IV Rocephin (day #4) Case discussed with ID recommended IV dapto and Ciprol PO to complete 6 weeks course Case discussed with Ortho plan for possible toe amputation Will consider to get an arterial doppler (4) Ischemic cardiomyopathy: (5) ICD (implantable cardioverter-defibrillator) in place: Echo 09/2018 EF 30 to 35% Appears euvolemic on exam Continue diuretics, beta-chaparro, and aspirin (6) PAD (peripheral artery disease): Continue aspirin (7) PMR (polymyalgia rheumatica): Continue chronic prednisone (8) Dementia: Continue home medications (9) Pacemaker: stable (10) DVT prophylaxis: SQ Lovenox Subjective Pt was seen and examined Lying in bed with no distress Confused as baseline due to her advanced dementia Denies any chest pain, palpitation, dizziness and SOB Physical Exam Physical Exam: General- No acute distress, advanced dementia Head- atraumatic Eyes- PERRL, EOMI, ENT- oropharynx clear Neck- supple, no JVD Lungs- No lung wheezing and crackle Heart- regular rhythm; no murmur Abdomen- normal bowel sounds, soft, nontender Extremities- no calf tenderness, wound in both big toes with no drainage or pus Neuro- alert, awake, PERRL, EOMI; no facial palsy; no dysarthria, advanced dementia Skin- warm & dry Results & Data Vital Signs (Past 12 Hours) Vital Signs Temp Pulse Resp BP Pulse Ox 02/03/19 15:02 36.9 C 96 H 20 109/66 99 02/03/19 07:56 36.8 C 86 20 131/72 96 (1) Osteomyelitis Laterality: right Osteomyelitis location: foot Osteomyelitis type: unspecified type Qualified Code(s): M86.9 - Osteomyelitis, unspecified
[2019-02-03] MEDS: cefTRIAXone SODIUM 1,000 MG in DEXTROSE 5% 50 ML IV SCH (18:36)
[2019-02-03] MEDS: VANCOMYCIN HCL 1,000 MG in SODIUM CHLORIDE 0.9% 250 ML IV SCH (20:42)
[2019-02-03] MEDS: TOLTERODINE TARTRATE 1 MG TAB PO SCH (20:43)
[2019-02-04] MEDS: INSULIN ASPART 100 UNITS/ML 3 ML PEN SC SCH ×5 (03:35→21:28)
[2019-02-04] MEDS: MULTIVITAMIN TAB PO SCH (08:11)
[2019-02-04] MEDS: CHOLECALCIFEROL (VITAMIN D) 400 UNITS TABLET PO SCH (08:11)
[2019-02-04] MEDS: DOCUSATE SODIUM 100 MG CAP PO SCH ×2 (08:11→21:30)
[2019-02-04] MEDS: DULOXETINE HCL 30 MG CAP PO SCH (08:11)
[2019-02-04] MEDS: QUETIAPINE FUMARATE 25 MG TABLET PO SCH ×2 (08:11→21:27)
[2019-02-04] MEDS: SPIRONOLACTONE 25 MG TAB PO SCH (08:12)
[2019-02-04] MEDS: LOSARTAN POTASSIUM 25 MG TAB PO SCH (08:12)
[2019-02-04] MEDS: ASPIRIN 81 MG ECTAB PO SCH (08:13)
[2019-02-04] MEDS: FUROSEMIDE 40 MG TAB PO SCH (08:13)
[2019-02-04] MEDS: TERBINAFINE HCL 250 MG TAB PO SCH (08:13)
[2019-02-04] MEDS: predniSONE 5 MG TAB PO SCH (08:13)
[2019-02-04] MEDS: GABAPENTIN 100 MG CAP PO SCH ×2 (08:14→17:40)
[2019-02-04] MEDS: carvediloL 12.5 MG TAB PO SCH ×2 (08:14→17:29)
[2019-02-04] MEDS: LORATADINE 10 MG TAB PO SCH (08:15)
[2019-02-04] MEDS: INSULIN DETEMIR FLEXPEN/FLEX TOUCH 100 UNITS/ML 3ML SC SCH (08:25)
--- NOTE | 2019-02-04 09:04 | Orthopedic Progress Note ---
Date of Service February 04, 2019 Assessment & Plan (1) Osteomyelitis of great toe of right foot: continue wound care and dressing care. Possible amputation right great toe may be needed. (2) Osteomyelitis of great toe of left foot: Subjective Pt resting comfortably in bed today. More alert than yesterday but unable to answer questions appropriately. Physical Exam Physical Exam: Right great toe ulcer, small amount drainage on dressing this am. Exposed tendon area. no significant erythema. Left great toe eschar. No drainage or erythema. Results & Data Vital Signs (Past 12 Hours) Vital Signs Temp Pulse Resp BP BP Pulse Ox 02/04/19 07:51 36.5 C 107 H 20 106/66 96 02/03/19 23:00 36.7 C 87 18 129/71 94
--- NOTE | 2019-02-04 11:07 | Pharmacy Report ---
Pharmacy Glycemic Short Note 2 - Date of Service February 04, 2019 - Glycemic Short BSG Results (Last 24 hours): 02/03/19 02/03/19 02/03/19 12:10 16:25 16:27 POC Glucose 284 H 333 H* 314 H* 02/03/19 02/03/19 02/03/19 20:19 20:21 23:18 POC Glucose 354 H* 299 H 241 H 02/04/19 02/04/19 03:33 07:39 POC Glucose 180 H 187 H OUTPATIENT ANTIDIABETIC REGIMEN: * Insulin detemir (Levemir) 20 units SQ HS * NovoLog 7 units SQ TIDM * A1c = 8.4 % 01/22/19 The patient is currently receiving: * Basal insulin: Levemir 10 units every 24 hours * Correctional Insulin: Novolog Correction per scale ACHS Goal Range: Low 140 mg/dL - High 180 mg/dL Correction Factor: 30 mg/dL/unit * Prandial insulin: Per carb ratio of 1 unit per 10 grams CHO consumed Risk Factors for Insulin Resistance: * Infection - osteo * Diet: T2DM * Prednisone 5mg PO Daily {outpatient med} - Assessment & Plan ASSESSMENT: 02/04 * No change to causes of insulin resistance * Fasting BSG = 187 mg/dL; due to recent severe hypoglycemia episodes and improvement from yesterday, no changes will be made to basal dose * Postprandial BSGs elevated; will tighten CR only 02/03 * 78yo T2DM female known to pharmacy from previous admissions/glycemic consults - most recently 01/21/19 admission * Pt with hypoglycemia last admission and outpatient regimen was reduced. Again, admitted with hypoglycemia. Basal insulin has been held since admission, but now patient with rebound hyperglycemia. * 1/2 of outpatient basal insulin started by provider this afternoon * No CHO ratio ordered with bolus insulin * Will adjust orders similar to last admission and titrate based on BSG trends PLAN FOR INPATIENT GLYCEMIC CONTROL: * Basal insulin - no change * Levemir 10 units daily * Bolus insulin - tighten CR * NovoLog per scale ACHS or Q6hrs while NPO * Goal Range: Low 110 mg/dL - High 150 mg/dL * Correction Factor: 30 mg/dL/unit * Nutritional / Prandial insulin per carb ratio of 1 unit per 8 grams CHO consumed PLAN FOR DISCHARGE: * A1c = 8.4% on 01/22/19 * Patient admitted with recurrent hypoglycemia, even after insulin doses reduced on last discharge * Recommend a significant reduction of outpatient regimen: * Levemir 10 units qHS * Novolog 4 units with meals (hold if no/poor po intake) + conservative sliding scale * Blood Sugar 70-150 administer 0 units Blood Sugar 151-200 administer 1 units Blood Sugar 201-250 administer 3 units Blood Sugar 251-300 administer 5 units Blood Sugar 301-350 administer 7 units Blood Sugar 351-400 administer 9 units Blood Sugar >400 administer 11 units and call MD
--- NOTE | 2019-02-04 12:44 | Orthopedic Progress Note ---
Date of Service February 04, 2019 Assessment & Plan (1) Osteomyelitis of toe of right foot: Will continue with IV antibiotic treatment as preferred by the patient's family and infectious disease service. Will likely require amputation of right great toe at minimum and possibly right below-knee amputation at maximum if IV antibiotic therapy fails. Patient has exposed tendon plantar medial right great toe which is unlikely to epithelialize due to her chronic peripheral vascular disease, advanced age and other medical comorbidities. Left great toe eschar appears relatively stable with some possibly viable tissue coverage. We will follow with you. Thank you for the consultation. Present on Admission?: Yes Subjective Patient was seen and examined at bedside today. Pleasantly confused due to dementia. No new complaints. Physical Exam Physical Exam: Examination bilateral feet demonstrate skin warm and intact with the exception of the ulcers of bilateral great toes as mentioned previously. Ulcerations unchanged. Continued exposed tendon plantar medial right great toe. No significant worsening of erythema. No change in local edema. No palpable pulses, unchanged. Results & Data Vital Signs (Past 12 Hours) Vital Signs Temp Pulse Resp BP Pulse Ox 02/04/19 07:51 36.5 C 107 H 20 106/66 96
[2019-02-04] MEDS: VANCOMYCIN HCL 1,000 MG in SODIUM CHLORIDE 0.9% 250 ML IV SCH (14:36)
--- NOTE | 2019-02-04 15:21 | Hospitalist Progress Note ---
Date of Service February 04, 2019 Assessment & Plan (1) Hypoglycemia: (2) Diabetes mellitus, type 2: Patient presenting from [facility] for hypoglycemia Recent admission to [facility] 01/21 through 01/24 for hypoglycemia and management of right great toe osteomyelitis Shee was discharge to [facility] on Levemir 20 units. Has been having poor appetite and continue received her Levemir 20units Developed Hypoglycemia in the 20's HgbA1c 8.4 01/22/2019 Basal insulin has been on hold BS has been elevated in the 300's since pt has been getting help with feeding Resume Levemir 10mg daily Pharmacy consulted for glycemic management Will encourage [facility] staff to assist pt with feeding Continue monitor BS (3) Osteomyelitis: During recent admission, x-ray showed osteomyelitis the right great toe; no signs of osteomyelitis on x-ray of left great toe; unable to obtain MRI due to pacemaker Had been on doxycycline per wound care center; patient was evaluated by ID during recent admission who advised to continue doxycycline; patient completed course on 01/26 Wound culture from 01/16 grew MRSA and Serratia Per daughter, patient has been evaluated by orthopedics and vascular surgery as an outpatient for possible amputation however given her underlying severe PAD, this was deferred CT scans of bilateral great toes showing signs of osteomyelitis On IV Vanco and IV Rocephin (day #5) Case discussed with ID recommended IV dapto and Ciprol PO to complete 6 weeks course Case discussed with Ortho plan for possible toe amputation Will continue conservative management as per ortho with IV antiobitic for now If fails abx therapy, will need to consider right great toe amputation at minimum and possibly right below-knee amputation at maximum Obtained telephone consent for PICC line from daughter Mrs Ava Leonardo today (4) Ischemic cardiomyopathy: (5) ICD (implantable cardioverter-defibrillator) in place: Echo 09/2018 EF 30 to 35% Appears euvolemic on exam Continue diuretics, beta-chaparro, and aspirin (6) PAD (peripheral artery disease): Continue aspirin (7) PMR (polymyalgia rheumatica): Continue chronic prednisone (8) Dementia: Continue home medications (9) Pacemaker: stable (10) DVT prophylaxis: SQ Lovenox Disposition Will get PICC line tomorrow Subjective Pt was seen and examined Lying in bed with no distress Confused as baseline due to dementia Denies any chest pain, palpitation and SOB Physical Exam Physical Exam: General- No acute distress, advanced dementia Head- atraumatic Eyes- PERRL, EOMI, ENT- oropharynx clear Neck- supple, no JVD Lungs- No lung wheezing and crackle Heart- regular rhythm; no murmur Abdomen- normal bowel sounds, soft, nontender Extremities- no calf tenderness, wound in both big toes with no drainage or pus Neuro- alert, awake, PERRL, EOMI; no facial palsy; no dysarthria, advanced dementia Skin- warm & dry Results & Data Vital Signs (Past 12 Hours) Vital Signs Temp Pulse Resp BP Pulse Ox 02/04/19 07:51 36.5 C 107 H 20 106/66 96 (1) Osteomyelitis Laterality: right Osteomyelitis location: foot Osteomyelitis type: unspecified type Qualified Code(s): M86.9 - Osteomyelitis, unspecified
[2019-02-04] MEDS ORDERED: DAPTOMYCIN CONSULT ACTIVE PRN (15:45)
[2019-02-04] MEDS ORDERED: DAPTOmycin 500 MG in SYRINGE 0 ML IV SCH (16:00)
[2019-02-04] MEDS: ENOXAPARIN INJ 40 MG/0.4 ML SYR SQ SCH (17:39)
[2019-02-04] MEDS: CIPROFLOXACIN 250 MG TAB PO SCH (18:55)
--- NOTE | 2019-02-04 21:15 | Infectious Disease Progress Nt ---
Date of Service February 04, 2019 Assessment & Plan (1) Osteomyelitis of great toe: 78-year-old female with diabetes and peripheral vascular disease with bilateral great toe osteomyelitis, appears clinically to have improved with antibiotic therapy. Will require prolonged i.e 6 weeks of IV abx for osteomyelitis. Would recommend combination of daptomycin and oral ciprofloxacin to cover MRSA and Serratia. Discussed with hospitalist. Will continue to follow. (2) Serratia infection: (3) MRSA (methicillin resistant Staphylococcus aureus) infection: Subjective Patient seen in follow-up for osteomyelitis of both great toes. Lying in bed with no distress Confused as baseline due to dementia Denies any chest pain, palpitation and SOB Review of Systems Review of Systems: All systems reviewed & are unremarkable except as noted in HPI & below Physical Exam Constitutional: WD/WN, vitals as above comfortable; no acute distress Eyes: PERRL, conjunctivae normal, anicteric sclerae ENMT: external ear and nose normal, oropharynx normal Neck: trachea midline, no thyromegaly neck nontender Respiratory: normal respiratory effort, lungs clear to auscultation normal percussion; does not use accessory muscles Cardiovascular: Rate/Rhythm: regular rate and regular rhythm Heart Sounds: normal S1 and normal S2; no gallop, no murmur and no cardiac rub Vessels: normal peripheral pulses; no JVD Gastrointestinal (Abdomen): normal bowel sounds, soft, nontender, no hepatosplenomegaly Musculoskeletal: no cyanosis or clubbing, extremities motor strength 5/5 Spine: thoracic spine normal to inspection and lumbar spine normal to inspection; no cervical spinal tenderness Skin: no rashes, warm and dry normal turgor and + wound (Right and left great toe medial ulcerations, superficial appearing, slight ) Neurologic: patellar DTR's 2+ bilat, sensation intact no focal motor deficits Psychiatric: A+Ox3, euthymic affect Orientation: cooperative Lymphatic: no cervical or axillary lymphadenopathy no inguinal lymphadenopathy Results & Data Vital Signs (Past 12 Hours) Vital Signs Temp Pulse Resp BP Pulse Ox 02/04/19 16:20 36.4 C L 82 20 94/58 L 99 Laboratory Results Laboratory Results - last 48 hr 02/03/19 02/03/19 02/03/19 02:30 02:30 02:30 WBC 11.27 H RBC 3.78 L Hgb 10.4 L Hct 32.0 L MCV 84.7 MCH 27.5 MCHC 32.5 RDW Std Deviation 55.2 H RDW Coeff of Fercho 17.6 H Plt Count 322 MPV 8.7 Sodium 134 L Potassium 3.9 Chloride 98 Carbon Dioxide 29 Anion Gap 7.0 BUN 15 Creatinine 1.12 Est Cr Clr Drug Dosing 30.2 Est GFR ( Amer) 54.9 Est GFR (Non-Af Amer) 47.3 BUN/Creatinine Ratio 13.2 Glucose 281 H POC Glucose Calcium 8.7 Vancomycin Trough 12.4 02/03/19 02/03/19 02/03/19 07:35 12:10 16:25 WBC RBC Hgb Hct MCV MCH MCHC RDW Std Deviation RDW Coeff of Fercho Plt Count MPV Sodium Potassium Chloride Carbon Dioxide Anion Gap BUN Creatinine Est Cr Clr Drug Dosing Est GFR ( Amer) Est GFR (Non-Af Amer) BUN/Creatinine Ratio Glucose POC Glucose 254 H 284 H 333 H* Calcium Vancomycin Trough 02/03/19 02/03/19 02/03/19 16:27 20:19 20:21 WBC RBC Hgb Hct MCV MCH MCHC RDW Std Deviation RDW Coeff of Fercho Plt Count MPV Sodium Potassium Chloride Carbon Dioxide Anion Gap BUN Creatinine Est Cr Clr Drug Dosing Est GFR ( Amer) Est GFR (Non-Af Amer) BUN/Creatinine Ratio Glucose POC Glucose 314 H* 354 H* 299 H Calcium Vancomycin Trough 02/03/19 02/04/19 02/04/19 23:18 03:33 07:39 WBC RBC Hgb Hct MCV MCH MCHC RDW Std Deviation RDW Coeff of Fercho Plt Count MPV Sodium Potassium Chloride Carbon Dioxide Anion Gap BUN Creatinine Est Cr Clr Drug Dosing Est GFR ( Amer) Est GFR (Non-Af Amer) BUN/Creatinine Ratio Glucose POC Glucose 241 H 180 H 187 H Calcium Vancomycin Trough 02/04/19 02/04/19 02/04/19 11:53 16:31 20:12 WBC RBC Hgb Hct MCV MCH MCHC RDW Std Deviation RDW Coeff of Fercho Plt Count MPV Sodium Potassium Chloride Carbon Dioxide Anion Gap BUN Creatinine Est Cr Clr Drug Dosing Est GFR ( Amer) Est GFR (Non-Af Amer) BUN/Creatinine Ratio Glucose POC Glucose 191 H 231 H 166 H Calcium Vancomycin Trough PG Care Time/CCT Total # of Minutes Spent Total Time Spent with Patient: Total time spent is greater than 50% in coordination of care (as documented) at patient's floor/unit and/or counseling patient:
[2019-02-04] MEDS: TOLTERODINE TARTRATE 1 MG TAB PO SCH (21:31)
[2019-02-05 06:33] LABS: BUN Creatinine Ratio 16.8 (10-20); Calcium 9.1 mg/dl (8.5-10.1); Creatinine Clr Calc Pharmacy 31.3 ml/min; Est GFR (African American) 57.3; Est GFR (Non-African American) 49.5; Potassium 3.5 mmol/L (3.5-5.1)
[2019-02-05] MEDS ORDERED: VANCOMYCIN TROUGH SCH (07:30)
[2019-02-05] MEDS: DAPTOmycin 300 MG in SYRINGE 0 ML IV SCH (07:49)
[2019-02-05] MEDS: TERBINAFINE HCL 250 MG TAB PO SCH (07:49)
[2019-02-05] MEDS: predniSONE 5 MG TAB PO SCH (07:49)
[2019-02-05] MEDS: FUROSEMIDE 40 MG TAB PO SCH (07:49)
[2019-02-05] MEDS: CHOLECALCIFEROL (VITAMIN D) 400 UNITS TABLET PO SCH (07:49)
[2019-02-05] MEDS: QUETIAPINE FUMARATE 25 MG TABLET PO SCH ×2 (07:49→20:10)
[2019-02-05] MEDS: LOSARTAN POTASSIUM 25 MG TAB PO SCH (07:50)
[2019-02-05] MEDS: LORATADINE 10 MG TAB PO SCH (07:50)
[2019-02-05] MEDS: SPIRONOLACTONE 25 MG TAB PO SCH (07:50)
[2019-02-05] MEDS: DOCUSATE SODIUM 100 MG CAP PO SCH ×2 (07:50→20:10)
[2019-02-05] MEDS: DULOXETINE HCL 30 MG CAP PO SCH (07:50)
[2019-02-05] MEDS: ASPIRIN 81 MG ECTAB PO SCH (07:50)
[2019-02-05] MEDS: CIPROFLOXACIN 250 MG TAB PO SCH ×2 (07:50→20:12)
[2019-02-05] MEDS: MULTIVITAMIN TAB PO SCH (07:51)
[2019-02-05] MEDS: GABAPENTIN 100 MG CAP PO SCH ×2 (07:51→16:18)
[2019-02-05] MEDS: carvediloL 12.5 MG TAB PO SCH ×2 (07:51→16:10)
--- NOTE | 2019-02-05 08:17 | Hospitalist Progress Note ---
Date of Service February 05, 2019 Assessment & Plan (1) Hypoglycemia: (2) Diabetes mellitus, type 2: Patient presented from [facility] for hypoglycemia Recent admission to [facility] 01/21 through 01/24 for hypoglycemia and management of right great toe osteomyelitis She was discharge to [facility] on Levemir 20 units. Has been having poor appetite and continue received her Levemir 20units Developed Hypoglycemia in the ' HgbA1c 8.4 01/22/2019 Basal insulin had been on hold but currently resumed at 12U HS Last glucose this AM 186 Pharmacy on board for glycemic management Will encourage [facility] staff to assist pt with feeding on discharge (3) Osteomyelitis: During recent admission, x-ray showed osteomyelitis the right great toe; no signs of osteomyelitis on x-ray of left great toe; unable to obtain MRI due to pacemaker Had been on doxycycline per wound care center; patient was evaluated by ID during recent admission who advised to continue doxycycline; patient completed course on 01/26 Wound culture from 01/16 grew MRSA and Serratia Per daughter, patient has been evaluated by orthopedics and vascular surgery as an outpatient for possible amputation however given her underlying severe PAD, this was deferred CT scans of bilateral great toes showing signs of osteomyelitis Was initially on IV Vanco and IV Rocephin ID recommended IV dapto and Ciprol PO to complete 6 weeks course. Monitor QTc while on cipro Ortho plan may consider possible toe amputation Will continue conservative management as per ortho with IV antiobitic for now If fails abx therapy, will need to consider right great toe amputation at minimum and possibly right below-knee amputation at maximum Telephone consent for PICC line from daughter Mrs Ava Leonardo obtained by Dr Iqbal yesterday Awaiting PICC line today. (4) Ischemic cardiomyopathy: (5) ICD (implantable cardioverter-defibrillator) in place: Echo 09/2018 EF 30 to 35% Appears euvolemic on exam Continue diuretics and aspirin BP currently running low. AM coreg held Will continue to reassess vitals (6) PAD (peripheral artery disease): Continue aspirin (7) PMR (polymyalgia rheumatica): Continue chronic prednisone (8) Dementia: Continue home medications (9) Pacemaker: stable (10) DVT prophylaxis: SQ Lovenox Disposition Will get PICC line today Subjective Patient seen and examined. Awake, Alert in no distress Discussed with RN. No event overnight No complaints Review of Systems Review of Systems: Unable to obtain from patient due to dementia Physical Exam Physical Exam: General: Well hydrated , average body habitus, no acute distress and not ill appearing Eyes: PERRL, conjunctivae normal, not pale, anicteric sclerae, EOM intact bilaterally ENMT: External ear and nose normal, oropharynx normal Neck: Normal visual inspection, no tracheal deviation, no swelling noted Respiratory: Normal respiratory effort, no respiratory distress, lungs clear to auscultation, no crackles and no wheezes Cardiovascular: S1 and S2; no pedal edema Chest (Breasts): Chest: normal inspection of chest Gastrointestinal (Abdomen): Abdomen is not distended, soft, non-tender to palpation, no guarding, no palpable hepatosplenomegaly, normal bowel sounds Musculoskeletal: No cyanosis or clubbing Skin: No rash noted on gross inspection, No ulcers noted Neurologic: Awake, Alert, not oriented to person, place or time, moves all extremities spontaneously but does not follow commands, Limited neuro exam due to advanced dementia Results & Data Vital Signs (Past 12 Hours) Vital Signs Temp Pulse Resp BP BP Pulse Ox 02/05/19 07:00 36.6 C 119 H 16 89/57 L 96 02/04/19 23:47 36.4 C L 75 20 93/56 L 97 (1) Osteomyelitis Laterality: right Osteomyelitis location: foot Osteomyelitis type: unspecified type Qualified Code(s): M86.9 - Osteomyelitis, unspecified
[2019-02-05] MEDS: INSULIN ASPART 100 UNITS/ML 3 ML PEN SC SCH ×4 (08:41→20:13)
[2019-02-05] MEDS: INSULIN DETEMIR FLEXPEN/FLEX TOUCH 100 UNITS/ML 3ML SC SCH (08:42)
--- NOTE | 2019-02-05 14:27 | Pharmacy Report ---
Glycemic Control Progress Note - Date of Service February 05, 2019 - Scope Glycemic Pharmacist consulted for glycemic control to write orders per [facility] inpatient glycemic control protocol. - Objective Accuchecks BSG(last 24 hours):: 02/04/19 02/04/19 02/05/19 16:31 20:12 05:18 Glucose 215 H POC Glucose 231 H 166 H 02/05/19 02/05/19 07:48 11:44 Glucose POC Glucose 186 H 209 H - Recent Pertinent Medications The patient is currently receiving: * Basal insulin: Lantus 10 units every 24 hours * Correctional Insulin: Novolog Correction per scale ACHS Goal Range: Low 110 mg/dL - High 140 mg/dL Correction Factor: 30 mg/dL/unit * Prandial insulin: Per carb ratio of 1 unit per 8 grams CHO consumed - Outpatient Anti-Diabetic Meds Levemir 20 units nightly plus Novolog 7 units with meals - Assessment & Plan ASSESSMENT: * See progress note from 02/03/19 for more background info, in short: * Pt receiving SQ basal bolus insulin regimen for hyperglycemia secondary to baseline DM (outpatient regimen on hold),stress/infection (osteomyelitis currently on cipro PO and daptomycin). * Patient is currently receiving an average of 31 units of insulin per day * 10 units of basal insulin * 21 units of prandial/correctional insulin * BSGs ranging 166 - 231 mg/dl over the past 24hrs * Changes needed to insulin regimen: * AM Fasting BSG = 215 mg/dl. This is above goal range for patient based on inpatient targets and co-morbidities. Therefore Basal insulin will be increased. Fasting continues to trend upwards. Ideally would start with Levemir 15 units HOWEVER due to hypoglycemia will only give 12 units today to see how she does. * Post-prandial BSGs seem to remain stable. Patient's regimen very bolus heavy so will titrate upwards on basal currently. * Total daily dose = ~30-40 units. PLAN FOR INPATIENT GLYCEMIC CONTROL: * Increasing Levemir to 12 units SQ daily * Continuing correction factor of 30 mg/dl/unit * Continuing carb ratio of 1 unit per 8 grams CHO consumed * Continuing goal range of Low 110 mg/dL - High 140 mg/dL RECOMMENDATIONS FOR DISCHARGE: * see note from 02/04/19 * Please note that the plan above was derived based on current level of insulin resistance and hospital stress. These recommendations are appropriate for inpatient admission only. Plan of care upon discharge will need to be reassessed to avoid potential outpatient hypo/hyperglycemia. Thank you.
--- NOTE | 2019-02-05 15:27 | Infectious Disease Progress Nt ---
Date of Service February 05, 2019 Assessment & Plan (1) Osteomyelitis of great toe: 78-year-old female with diabetes and peripheral vascular disease with bilateral great toe osteomyelitis, appears clinically to have improved with antibiotic therapy. Will require prolonged i.e 6 weeks of IV abx for osteomyelitis. Would recommend combination of daptomycin and oral ciprofloxacin to cover MRSA and Serratia. Will need to follow EKG while on ciprofloxacin given that she already has prolonged QT interval. Discussed with hospitalist. Will continue to follow. (2) Serratia infection: (3) MRSA (methicillin resistant Staphylococcus aureus) infection: Subjective Patient seen in follow-up for osteomyelitis of both great toes. Continues to show improvement, less pain, remains afebrile. No other new complaints. Review of Systems Review of Systems: All systems reviewed & are unremarkable except as noted in HPI & below Physical Exam Constitutional: WD/WN, vitals as above comfortable; no acute distress Eyes: PERRL, conjunctivae normal, anicteric sclerae ENMT: external ear and nose normal, oropharynx normal Neck: trachea midline, no thyromegaly neck nontender Respiratory: normal respiratory effort, lungs clear to auscultation normal percussion; does not use accessory muscles Cardiovascular: Rate/Rhythm: regular rate and regular rhythm Heart Sounds: normal S1 and normal S2; no gallop, no murmur and no cardiac rub Vessels: normal peripheral pulses; no JVD Gastrointestinal (Abdomen): normal bowel sounds, soft, nontender, no hepatosplenomegaly Musculoskeletal: no cyanosis or clubbing, extremities motor strength 5/5 Spine: thoracic spine normal to inspection and lumbar spine normal to inspection; no cervical spinal tenderness Skin: no rashes, warm and dry normal turgor and + wound (Right and left great toe medial ulcerations, superficial appearing, slight ) Neurologic: patellar DTR's 2+ bilat, sensation intact no focal motor deficits Psychiatric: A+Ox3, euthymic affect Orientation: cooperative Lymphatic: no cervical or axillary lymphadenopathy no inguinal lymphadenopathy Results & Data Vital Signs (Past 12 Hours) Vital Signs Temp Pulse Resp BP Pulse Ox 02/05/19 12:01 36.6 C 108 H 18 111/71 97 02/05/19 07:00 36.6 C 119 H 16 89/57 L 96 PG Care Time/CCT Total # of Minutes Spent Total Time Spent with Patient: Total time spent is greater than 50% in coordination of care (as documented) at patient's floor/unit and/or counseling patient:
[2019-02-05] MEDS: ENOXAPARIN INJ 40 MG/0.4 ML SYR SQ SCH (16:20)
[2019-02-05] MEDS: TOLTERODINE TARTRATE 1 MG TAB PO SCH (20:12)
[2019-02-06] MEDS ORDERED: POLYETHYLENE (MIRALAX) 17 GM PACK PO PRN (04:56)
[2019-02-06] MEDS: DOCUSATE SODIUM/SENNA 50/8.6MG TAB PO SCH (06:10)
[2019-02-06 06:56] LABS: Creatinine Clr Calc Pharmacy 34.2 ml/min; Est GFR (African American) 63.7
[2019-02-06] MEDS: INSULIN ASPART 100 UNITS/ML 3 ML PEN SC SCH ×4 (08:37→20:49)
[2019-02-06] MEDS: LOSARTAN POTASSIUM 25 MG TAB PO SCH (08:38)
[2019-02-06] MEDS: INSULIN DETEMIR FLEXPEN/FLEX TOUCH 100 UNITS/ML 3ML SC SCH (08:38)
[2019-02-06] MEDS: FUROSEMIDE 40 MG TAB PO SCH (08:38)
[2019-02-06] MEDS: QUETIAPINE FUMARATE 25 MG TABLET PO SCH ×2 (08:38→20:52)
[2019-02-06] MEDS: SPIRONOLACTONE 25 MG TAB PO SCH (08:39)
[2019-02-06] MEDS: carvediloL 12.5 MG TAB PO SCH ×2 (08:39→17:38)
[2019-02-06] MEDS: ASPIRIN 81 MG ECTAB PO SCH (08:39)
[2019-02-06] MEDS: TERBINAFINE HCL 250 MG TAB PO SCH (08:39)
[2019-02-06] MEDS: GABAPENTIN 100 MG CAP PO SCH ×2 (08:40→17:41)
[2019-02-06] MEDS: CIPROFLOXACIN 250 MG TAB PO SCH ×2 (08:40→20:51)
[2019-02-06] MEDS: CHOLECALCIFEROL (VITAMIN D) 400 UNITS TABLET PO SCH (08:40)
[2019-02-06] MEDS: DULOXETINE HCL 30 MG CAP PO SCH (08:41)
[2019-02-06] MEDS: DOCUSATE SODIUM 100 MG CAP PO SCH ×2 (08:41→20:51)
[2019-02-06] MEDS: LORATADINE 10 MG TAB PO SCH (08:41)
[2019-02-06] MEDS: MULTIVITAMIN TAB PO SCH (08:42)
[2019-02-06] MEDS: predniSONE 5 MG TAB PO SCH (08:42)
[2019-02-06] MEDS: DAPTOmycin 300 MG in SYRINGE 0 ML IV SCH (08:46)
--- NOTE | 2019-02-06 13:35 | Infectious Disease Progress Nt ---
Date of Service February 06, 2019 Assessment & Plan (1) Osteomyelitis of great toe: 78-year-old female with diabetes and peripheral vascular disease with bilateral great toe osteomyelitis, appears clinically to have improved with antibiotic therapy. Will require prolonged i.e 6 weeks of IV abx for osteomyelitis. Would recommend combination of daptomycin and oral ciprofloxacin to cover MRSA and Serratia. Will need to follow EKG while on ciprofloxacin given that she already has prolonged QT interval. Await final urine culture to determine need for change in antibiotics. Will follow. (2) Serratia infection: (3) MRSA (methicillin resistant Staphylococcus aureus) infection: Subjective Patient seen in follow-up for osteomyelitis of both great toes. Continues to show improvement, less pain, remains afebrile. No other new complaints. Review of Systems Review of Systems: All systems reviewed & are unremarkable except as noted in HPI & below Physical Exam Constitutional: WD/WN, vitals as above comfortable; no acute distress Eyes: PERRL, conjunctivae normal, anicteric sclerae ENMT: external ear and nose normal, oropharynx normal Neck: trachea midline, no thyromegaly neck nontender Respiratory: normal respiratory effort, lungs clear to auscultation normal percussion; does not use accessory muscles Cardiovascular: Rate/Rhythm: regular rate and regular rhythm Heart Sounds: normal S1 and normal S2; no gallop, no murmur and no cardiac rub Vessels: normal peripheral pulses; no JVD Gastrointestinal (Abdomen): normal bowel sounds, soft, nontender, no hepatosplenomegaly Musculoskeletal: no cyanosis or clubbing, extremities motor strength 5/5 Spine: thoracic spine normal to inspection and lumbar spine normal to inspection; no cervical spinal tenderness Skin: no rashes, warm and dry normal turgor and + wound (Right and left great toe medial ulcerations, superficial appearing, slight ) Neurologic: patellar DTR's 2+ bilat, sensation intact no focal motor deficits Psychiatric: A+Ox3, euthymic affect Orientation: cooperative Lymphatic: no cervical or axillary lymphadenopathy no inguinal lymphadenopathy Results & Data Vital Signs (Past 12 Hours) Vital Signs Temp Pulse Resp BP Pulse Ox 02/06/19 07:41 36.6 C 81 18 118/69 94 Laboratory Results BMP 02/06/19 06:10 Creatinine 0.99 Diagnostic Findings Microbiology 02/05/19 18:20 Urine,Indwelling Cath Urine Culture - Preliminary Pin-point growth present, reincubating. PG Care Time/CCT Total # of Minutes Spent Total Time Spent with Patient: Total time spent is greater than 50% in coordination of care (as documented) at patient's floor/unit and/or counseling patient:
[2019-02-06] MEDS ORDERED: INSULIN DETEMIR FLEXPEN/FLEX TOUCH 100 UNITS/ML 3ML SC ONE (13:45)
--- NOTE | 2019-02-06 14:28 | Hospitalist Progress Note ---
Date of Service February 06, 2019 Assessment & Plan (1) Hypoglycemia: (2) Diabetes mellitus, type 2: Patient presented from [facility] for hypoglycemia Recent admission to [facility] 01/21 through 01/24 for hypoglycemia and management of right great toe osteomyelitis She was discharge to [facility] on Levemir 20 units. Has been having poor appetite and continue received her Levemir 20units Developed Hypoglycemia in the ' HgbA1c 8.4 01/22/2019 Basal insulin had been on hold but currently resumed at 12U HS Appreciate pharmacy input for glycemic management Will encourage [facility] staff to assist pt with feeding on discharge (3) Osteomyelitis: During recent admission, x-ray showed osteomyelitis the right great toe; no signs of osteomyelitis on x-ray of left great toe; unable to obtain MRI due to pacemaker Had been on doxycycline per wound care center; patient was evaluated by ID during recent admission who advised to continue doxycycline; patient completed course on 01/26 Wound culture from 01/16 grew MRSA and Serratia Per daughter, patient has been evaluated by orthopedics and vascular surgery as an outpatient for possible amputation however given her underlying severe PAD, this was deferred CT scans of bilateral great toes showing signs of osteomyelitis Was initially on IV Vanco and IV Rocephin ID recommended IV dapto and Ciprol PO to complete 6 weeks course. Monitor QTc while on cipro Will continue conservative management as per ortho with IV antiobitic for now Telephone consent for PICC line from daughter Mrs Ava Leonardo obtained by Dr Iqbal Unable to have a PICC line placed by IV team, as could not find a accessible vein (4) Ischemic cardiomyopathy: (5) ICD (implantable cardioverter-defibrillator) in place: Echo 09/2018 EF 30 to 35% Appears euvolemic on exam Continue diuretics and aspirin Continue Coreg with holding parameters (6) PAD (peripheral artery disease): Continue aspirin (7) PMR (polymyalgia rheumatica): Continue chronic prednisone (8) Dementia: Continue home medications To be at baseline mental status, oriented to (9) Pacemaker: stable (10) DVT prophylaxis: SQ Lovenox Disposition Social service involved for discharge planning Subjective Patient offers no complaints, no fever or chills, Vitals stable Physical Exam Constitutional: WD/WN, vitals as above no acute distress Eyes: PERRL, conjunctivae normal, anicteric sclerae ENMT: external ear and nose normal, oropharynx normal Respiratory: normal respiratory effort, lungs clear to auscultation normal respiratory effort; no respiratory distress Auscultation: + diminished lung sounds (Poor inspiratory effort) Cardiovascular: Rate/Rhythm: regular rate and regular rhythm Vessels: normal peripheral pulses Extremities: no edema Gastrointestinal (Abdomen): normal bowel sounds, soft, nontender, no hepatosplenomegaly Inspection/Auscultation: normal bowel sounds Percussion/Palpation: abdomen soft; abdomen nontender Musculoskeletal: no cyanosis or clubbing, extremities motor strength 5/5 Skin: no rashes, warm and dry Neurologic: PERRL, EOMI, accommodation nl, no face palsy, no dysarthria Psychiatric: Orientation: alert; + not oriented to person, + not oriented to place and + not oriented to time Results & Data Vital Signs (Past 12 Hours) Vital Signs Temp Pulse Resp BP Pulse Ox 02/06/19 07:41 36.6 C 81 18 118/69 94 (1) Osteomyelitis Laterality: right Osteomyelitis location: foot Osteomyelitis type: unspecified type Qualified Code(s): M86.9 - Osteomyelitis, unspecified
--- NOTE | 2019-02-06 17:31 | Orthopedic Progress Note ---
Date of Service February 06, 2019 Assessment & Plan (1) Osteomyelitis of toe of right foot: Recommend wound care and daily dressing changes. Conservative treatments with IV antibiotics at this time. Will defer to Dr. García for further intervention and timing. Subjective Patient seen laying in bed today. Pleasantly demented. The patient is a poor historian secondary to underlying dementia. She is comfortable appearing. Review of Systems Review of Systems: Unobtainable due to cognitive status Constitutional: as per Subjective / HPI Physical Exam Physical Exam: Limited exam secondary to cognitive status, does not follow commands. Examination bilateral feet demonstrate skin warm and intact with the exception of the ulcers of bilateral great toes as mentioned previously. Ulcerations unchanged. Continued exposed tendon plantar medial right great toe. No significant worsening of erythema. No change in local edema. No palpable pulses, unchanged. Results & Data Vital Signs (Past 12 Hours) Vital Signs Temp Pulse Resp BP Pulse Ox 02/06/19 16:27 36.6 C 86 20 104/64 97 02/06/19 07:41 36.6 C 81 18 118/69 94
[2019-02-06] MEDS: ENOXAPARIN INJ 40 MG/0.4 ML SYR SQ SCH (17:40)
[2019-02-06] MEDS: TOLTERODINE TARTRATE 1 MG TAB PO SCH (20:50)
[2019-02-07] MEDS: GABAPENTIN 100 MG CAP PO SCH ×2 (08:19→17:36)
[2019-02-07] MEDS: INSULIN ASPART 100 UNITS/ML 3 ML PEN SC SCH ×4 (08:19→20:41)
[2019-02-07] MEDS: INSULIN DETEMIR FLEXPEN/FLEX TOUCH 100 UNITS/ML 3ML SC SCH (08:20)
[2019-02-07] MEDS: CHOLECALCIFEROL (VITAMIN D) 400 UNITS TABLET PO SCH (08:20)
[2019-02-07] MEDS: DAPTOmycin 300 MG in SYRINGE 0 ML IV SCH (08:20)
[2019-02-07] MEDS: QUETIAPINE FUMARATE 25 MG TABLET PO SCH ×2 (08:21→20:23)
[2019-02-07] MEDS: MULTIVITAMIN TAB PO SCH (08:21)
[2019-02-07] MEDS: predniSONE 5 MG TAB PO SCH (08:21)
[2019-02-07] MEDS: FUROSEMIDE 40 MG TAB PO SCH (08:21)
[2019-02-07] MEDS: SPIRONOLACTONE 25 MG TAB PO SCH (08:21)
[2019-02-07] MEDS: TERBINAFINE HCL 250 MG TAB PO SCH (08:21)
[2019-02-07] MEDS: LOSARTAN POTASSIUM 25 MG TAB PO SCH (08:21)
[2019-02-07] MEDS: DULOXETINE HCL 30 MG CAP PO SCH (08:21)
[2019-02-07] MEDS: ASPIRIN 81 MG ECTAB PO SCH (08:21)
[2019-02-07] MEDS: DOCUSATE SODIUM/SENNA 50/8.6MG TAB PO SCH (08:21)
[2019-02-07] MEDS: CIPROFLOXACIN 250 MG TAB PO SCH (08:22)
[2019-02-07] MEDS: carvediloL 12.5 MG TAB PO SCH ×2 (08:22→17:37)
[2019-02-07] MEDS: DOCUSATE SODIUM 100 MG CAP PO SCH ×3 (08:23→21:40)
[2019-02-07] MEDS: LORATADINE 10 MG TAB PO SCH (08:57)
--- NOTE | 2019-02-07 14:58 | Pharmacy Report ---
Pharmacy Glycemic Short Note 2 - Date of Service February 07, 2019 - Glycemic Short BSG Results (Last 24 hours): 02/06/19 02/06/19 02/07/19 16:33 20:07 07:31 POC Glucose 206 H 158 H 203 H 02/07/19 02/07/19 02/07/19 11:32 11:32 14:00 POC Glucose 329 H* 363 H* 280 H OUTPATIENT ANTIDIABETIC REGIMEN: * Insulin detemir (Levemir) 20 units SQ HS * NovoLog 7 units SQ TIDM * A1c = 8.4 % 01/22/19 ASSESSMENT: * 78yo T2DM female known to pharmacy from previous admissions/glycemic consults - most recently 01/21/19 admission * Pt with hypoglycemia last admission and outpatient regimen was reduced. Again, admitted with hypoglycemia. * Basal insulin was initially held. Resumed on 02/03 at half of the home dose. Angela has required an increase in basal insulin the past 3 days and fasting BSG remains > 203 mg/dL. I suspect her home dose of 20 units is an appropriate dose for her when her appetite is good. * Post prandial BSGs are fluctuating with lunch being the highest value. I will further tighten Novolog CF and CR. PLAN FOR INPATIENT GLYCEMIC CONTROL: * Basal insulin * Levemir 18 units daily * Bolus insulin * NovoLog per scale ACHS or Q6hrs while NPO * Goal Range: Low 110 mg/dL - High 150 mg/dL * Correction Factor: 25 mg/dL/unit * Nutritional / Prandial insulin per carb ratio of 1 unit per 5 grams CHO consumed PLAN FOR DISCHARGE: * A1c = 8.4% on 01/22/19 * Patient admitted with recurrent hypoglycemia, even after insulin doses reduced on last discharge. Hypoglycemia is thought to be due to poor appetite, which has improved * Recommend the following changes: * May resume Levemir 20 units qHS as long as appetite is stable. If appetite is poor, only give 15 units SQ qHS * Novolog 4 units with meals (hold if patient consumes less than 50% of meal) + conservative sliding scale * Blood Sugar 70-150 administer 0 units Blood Sugar 151-200 administer 1 units Blood Sugar 201-250 administer 3 units Blood Sugar 251-300 administer 5 units Blood Sugar 301-350 administer 7 units Blood Sugar 351-400 administer 9 units Blood Sugar >400 administer 11 units and call
[2019-02-07] MEDS: ENOXAPARIN INJ 40 MG/0.4 ML SYR SQ SCH (17:35)
--- NOTE | 2019-02-07 18:45 | Hospitalist Progress Note ---
Date of Service February 07, 2019 Assessment & Plan (1) Hypoglycemia: Resolved, bHCG stabilized, appreciate input from pharmacy for glycemic management (2) Diabetes mellitus, type 2: Patient presented from [facility] for hypoglycemia Recent admission to [facility] 01/21 through 01/24 for hypoglycemia and management of right great toe osteomyelitis She was discharge to [facility] on Levemir 20 units. Has been having poor appetite and continue received her Levemir 20units Developed Hypoglycemia in the ' HgbA1c 8.4 01/22/2019 Basal insulin dose reduced to 12 units at bedtime Very conservative sliding scale to prevent hypoglycemia Appreciate pharmacy input for glycemic management Will encourage [facility] staff to assist pt with feeding on discharge (3) Osteomyelitis: During recent admission, x-ray showed osteomyelitis the right great toe; no signs of osteomyelitis on x-ray of left great toe; unable to obtain MRI due to pacemaker Had been on doxycycline per wound care center; patient was evaluated by ID during recent admission who advised to continue doxycycline; patient completed course on 01/26 Wound culture from 01/16 grew MRSA and Serratia Per daughter, patient has been evaluated by orthopedics and vascular surgery as an outpatient for possible amputation however given her underlying severe PAD, this was deferred CT scans of bilateral great toes showing signs of osteomyelitis Was initially on IV Vanco and IV Rocephin ID recommended IV dapto and Ciprol PO to complete 6 weeks course. 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 EF 30 to 35% Appears euvolemic on exam Continue diuretics and aspirin Continue Coreg with holding parameters PROLONGED QTC QTC prolongation noted more than 500 We will hold ciprofloxacin for now Repeat EKG in a.m., (6) PAD (peripheral artery disease): Continue aspirin (7) PMR (polymyalgia rheumatica): Continue chronic prednisone (8) Dementia: Continue home medications To be at baseline mental status, oriented to (9) Pacemaker: stable (10) DVT prophylaxis: SQ Lovenox Disposition Social service involved for discharge planning Subjective Elderly female, baseline dementia dementia, very pleasant, offers no complaints Fever chills, vitals stable Physical Exam Constitutional: WD/WN, vitals as above no acute distress Eyes: PERRL, conjunctivae normal, anicteric sclerae ENMT: external ear and nose normal, oropharynx normal Respiratory: normal respiratory effort, lungs clear to auscultation normal respiratory effort; no respiratory distress Auscultation: + diminished lung sounds (Poor inspiratory effort) Cardiovascular: Rate/Rhythm: regular rate and regular rhythm Vessels: normal peripheral pulses Extremities: no edema Gastrointestinal (Abdomen): normal bowel sounds, soft, nontender, no hepatosplenomegaly Inspection/Auscultation: normal bowel sounds Percussion/Palpation: abdomen soft; abdomen nontender Musculoskeletal: Extremities: + foot abnormality (Great to wound, bandage present, no drainage noted ) Bilateral Skin: no rashes, warm and dry Neurologic: PERRL, EOMI, accommodation nl, no face palsy, no dysarthria Psychiatric: Orientation: alert; + not oriented to person, + not oriented to place and + not oriented to time Results & Data Vital Signs (Past 12 Hours) Vital Signs Temp Pulse Resp BP Pulse Ox 02/07/19 15:45 36.3 C L 82 18 114/66 96 02/07/19 07:36 36.7 C 86 19 125/71 97 (1) Osteomyelitis Osteomyelitis type: unspecified type Osteomyelitis location: foot Laterality: right Qualified Code(s): M86.9 - Osteomyelitis, unspecified
[2019-02-07] MEDS: TOLTERODINE TARTRATE 1 MG TAB PO SCH (20:24)
[2019-02-08] MEDS ORDERED: INSULIN ASPART 100 UNITS/ML 3 ML PEN SC SCH
[2019-02-08] MEDS: DOCUSATE SODIUM/SENNA 50/8.6MG TAB PO SCH (07:47)
[2019-02-08] MEDS: DOCUSATE SODIUM 100 MG CAP PO SCH ×3 (07:48→22:28)
[2019-02-08] MEDS: predniSONE 5 MG TAB PO SCH (07:48)
[2019-02-08] MEDS: carvediloL 12.5 MG TAB PO SCH ×3 (07:48→22:18)
[2019-02-08] MEDS: MULTIVITAMIN TAB PO SCH (07:48)
[2019-02-08] MEDS: ASPIRIN 81 MG ECTAB PO SCH (07:48)
[2019-02-08] MEDS: DULOXETINE HCL 30 MG CAP PO SCH (07:48)
[2019-02-08] MEDS: FUROSEMIDE 40 MG TAB PO SCH (07:49)
[2019-02-08] MEDS: QUETIAPINE FUMARATE 25 MG TABLET PO SCH ×2 (07:49→21:58)
[2019-02-08] MEDS: CHOLECALCIFEROL (VITAMIN D) 400 UNITS TABLET PO SCH (07:49)
[2019-02-08] MEDS: SPIRONOLACTONE 25 MG TAB PO SCH (07:50)
[2019-02-08] MEDS: TERBINAFINE HCL 250 MG TAB PO SCH (07:50)
[2019-02-08] MEDS: LORATADINE 10 MG TAB PO SCH (07:51)
[2019-02-08] MEDS: GABAPENTIN 100 MG CAP PO SCH ×3 (07:52→22:19)
--- NOTE | 2019-02-08 09:19 | Infectious Disease Progress Nt ---
Date of Service February 08, 2019 Assessment & Plan (1) Osteomyelitis of great toe: 78-year-old female with diabetes and peripheral vascular disease with bilateral great toe osteomyelitis, appears clinically to have improved with antibiotic therapy. Will require prolonged i.e 6 weeks of IV abx for osteomyelitis. Would recommend combination of daptomycin and oral ciprofloxacin to cover MRSA and Serratia. Patient has prolonged QT interval, but has shown no increase, actually slightly better while on Cipro. Would reinstitute and follow EKG. We will continue to follow in hospital. (2) Serratia infection: (3) MRSA (methicillin resistant Staphylococcus aureus) infection: Subjective Patient seen in follow-up for osteomyelitis of the toes. Offers no complaints. Remains afebrile. Tolerating antibiotics without apparent difficulty. Review of Systems Review of Systems: All systems reviewed & are unremarkable except as noted in HPI & below Physical Exam Constitutional: WD/WN, vitals as above comfortable; no acute distress Eyes: PERRL, conjunctivae normal, anicteric sclerae ENMT: external ear and nose normal, oropharynx normal Neck: trachea midline, no thyromegaly neck nontender Respiratory: normal respiratory effort, lungs clear to auscultation normal percussion; does not use accessory muscles Cardiovascular: Rate/Rhythm: regular rate and regular rhythm Heart Sounds: normal S1 and normal S2; no gallop, no murmur and no cardiac rub Vessels: normal peripheral pulses; no JVD Gastrointestinal (Abdomen): normal bowel sounds, soft, nontender, no hepatosplenomegaly Musculoskeletal: no cyanosis or clubbing, extremities motor strength 5/5 Spine: thoracic spine normal to inspection and lumbar spine normal to inspection; no cervical spinal tenderness Skin: no rashes, warm and dry normal turgor and + wound (Right and left great toe medial ulcerations, superficial appearing, slight ) Neurologic: patellar DTR's 2+ bilat, sensation intact no focal motor deficits Psychiatric: A+Ox3, euthymic affect Orientation: cooperative Lymphatic: no cervical or axillary lymphadenopathy no inguinal lymphadenopathy Results & Data Vital Signs (Past 12 Hours) Vital Signs Temp Pulse Resp BP Pulse Ox 02/08/19 07:37 36.6 C 80 18 111/57 L 90 02/07/19 22:55 36.6 C 79 15 91/53 L 98 Laboratory Results Laboratory Results - last 48 hr 02/06/19 02/06/19 02/06/19 11:48 16:33 20:07 POC Glucose 280 H 206 H 158 H 02/07/19 02/07/19 02/07/19 07:31 11:32 11:32 POC Glucose 203 H 329 H* 363 H* 02/07/19 02/07/19 02/07/19 14:00 16:34 20:41 POC Glucose 280 H 157 H 151 H 02/07/19 02/08/19 23:22 08:18 POC Glucose 134 H 179 H Diagnostic Findings Microbiology 02/05/19 18:20 Urine,Indwelling Cath Urine Culture - Final Yeast not Katie albicans PG Care Time/CCT Total # of Minutes Spent Total Time Spent with Patient: Total time spent is greater than 50% in coordination of care (as documented) at patient's floor/unit and/or counseling patient:
[2019-02-08] MEDS: INSULIN ASPART 100 UNITS/ML 3 ML PEN SC SCH ×4 (09:27→21:57)
[2019-02-08] MEDS: INSULIN DETEMIR FLEXPEN/FLEX TOUCH 100 UNITS/ML 3ML SC SCH (09:27)
[2019-02-08] MEDS: LOSARTAN POTASSIUM 25 MG TAB PO SCH (09:27)
[2019-02-08] MEDS: DAPTOmycin 300 MG in SYRINGE 0 ML IV SCH (09:27)
--- NOTE | 2019-02-08 11:31 | Pharmacy Report ---
Pharmacy Glycemic Short Note 2 - Date of Service February 08, 2019 - Glycemic Short BSG Results (Last 24 hours): 02/07/19 02/07/19 02/07/19 11:32 11:32 14:00 POC Glucose 329 H* 363 H* 280 H 02/07/19 02/07/19 02/07/19 16:34 20:41 23:22 POC Glucose 157 H 151 H 134 H 02/08/19 08:18 POC Glucose 179 H OUTPATIENT ANTIDIABETIC REGIMEN: * Insulin detemir (Levemir) 20 units SQ HS * NovoLog 7 units SQ TIDM * A1c = 8.4 % 01/22/19 ASSESSMENT: * 78yo T2DM female known to pharmacy from previous admissions/glycemic consults - most recently 01/21/19 admission * Pt with hypoglycemia last admission and outpatient regimen was reduced. Again, admitted with hypoglycemia. * Basal insulin was initially held. Resumed on 02/03 at half of the home dose. Angela has required an increase in basal insulin the past 3 days and fasting BSG remains elevated at 179 mg/dL. * Post prandial BSGs are fluctuating with lunch being the highest value (294 mg/dL today) * Continues on daptomycin and ciprofloxacin for treatment of osteomyelitis PLAN FOR INPATIENT GLYCEMIC CONTROL: * Basal insulin * Levemir 18 units given this morning, will add 2 units with lunch for daily dose of 20 units * Levemir 20 units ongoing starting tomorrow morning * Bolus insulin * NovoLog per scale ACHS or Q6hrs while NPO * Goal Range: Low 110 mg/dL - High 140 mg/dL * Correction Factor: 25 mg/dL/unit * Nutritional / Prandial insulin per carb ratio of 1 unit per 5 grams CHO consumed PLAN FOR DISCHARGE: * A1c = 8.4% on 01/22/19 * Patient admitted with recurrent hypoglycemia, even after insulin doses reduced on last discharge. Hypoglycemia is thought to be due to poor appetite, which has improved * Recommend the following changes: * May resume Levemir 20 units qHS as long as appetite is stable. If appetite is poor, only give 15 units SQ qHS * Novolog 4 units with meals (hold if patient consumes less than 50% of meal) + conservative sliding scale * Blood Sugar 70-150 administer 0 units Blood Sugar 151-200 administer 1 units Blood Sugar 201-250 administer 3 units Blood Sugar 251-300 administer 5 units Blood Sugar 301-350 administer 7 units Blood Sugar 351-400 administer 9 units Blood Sugar >400 administer 11 units and call MD
[2019-02-08] MEDS ORDERED: INSULIN DETEMIR FLEXPEN/FLEX TOUCH 100 UNITS/ML 3ML SC ONE (12:30)
--- NOTE | 2019-02-08 16:57 | Hospitalist Progress Note ---
Date of Service February 08, 2019 Assessment & Plan (1) Hypoglycemia: To be hyperglycemic, pharmacy following for glycemic management (2) Diabetes mellitus, type 2: Patient presented from [facility] for hypoglycemia Recent admission to [facility] 01/21 through 01/24 for hypoglycemia and management of right great toe osteomyelitis She was discharge to [facility] on Levemir 20 units. Has been having poor appetite and continue received her Levemir 20units Developed Hypoglycemia in the 's HgbA1c 8.4 01/22/2019 Basal insulin dose reduced to 12 units at bedtime Very conservative sliding scale to prevent hypoglycemia Patient noted to develop hypoglycemia with BSG of 300, Plan: For glycemic management, updated (3) Osteomyelitis: During recent admission, x-ray showed osteomyelitis the right great toe; no signs of osteomyelitis on x-ray of left great toe; unable to obtain MRI due to pacemaker Had been on doxycycline per wound care center; patient was evaluated by ID during recent admission who advised to continue doxycycline; patient completed course on 01/26 Wound culture from 01/16 grew MRSA and Serratia Per daughter, patient has been evaluated by orthopedics and vascular surgery as an outpatient for possible amputation however given her underlying severe PAD, this was deferred CT scans of bilateral great toes showing signs of osteomyelitis Was initially on IV Vanco and IV Rocephin ID recommended IV dapto and Ciprol PO to complete 6 weeks course. Oral ciprofloxacin resumed, monitor QTC Will continue conservative management as per ortho with IV antiobitic Telephone consent for PICC line from daughter Mrs Ava Leonardo obtained by Dr Iqbal Unable to have a PICC line placed by IV team, as could not find a accessible vein We will discuss with family members regarding goals of care, (4) Ischemic cardiomyopathy: (5) ICD (implantable cardioverter-defibrillator) in place: Echo 09/2018 EF 30 to 35% Appears euvolemic on exam Continue diuretics and aspirin Continue Coreg with holding parameters PROLONGED QTC Continue p.o. ciprofloxacin with daily EKG monitoring (6) PAD (peripheral artery disease): Continue aspirin (7) PMR (polymyalgia rheumatica): Continue chronic prednisone (8) Dementia: Continue home medications To be at baseline mental status, oriented to (9) Pacemaker: stable (10) DVT prophylaxis: SQ Lovenox Disposition Social service involved for discharge planning Subjective Patient is pleasant demented, nodding head to each question, No sign of distress, Vitals been stable, no fever chills Physical Exam Constitutional: WD/WN, vitals as above no acute distress Eyes: PERRL, conjunctivae normal, anicteric sclerae ENMT: external ear and nose normal, oropharynx normal Respiratory: normal respiratory effort, lungs clear to auscultation normal respiratory effort; no respiratory distress Auscultation: + diminished lung sounds (Poor inspiratory effort) Cardiovascular: Rate/Rhythm: regular rate and regular rhythm Vessels: normal peripheral pulses Extremities: no edema Gastrointestinal (Abdomen): normal bowel sounds, soft, nontender, no hepatosplenomegaly Inspection/Auscultation: normal bowel sounds Percussion/Palpation: abdomen soft; abdomen nontender Musculoskeletal: no cyanosis or clubbing, extremities motor strength 5/5 Extremities: + foot abnormality (Great to wound, bandage present, no drainage noted ) Skin: no rashes, warm and dry Neurologic: PERRL, EOMI, accommodation nl, no face palsy, no dysarthria Psychiatric: Orientation: alert; + not oriented to person, + not oriented to place and + not oriented to time Results & Data Vital Signs (Past 12 Hours) Vital Signs Temp Pulse Resp BP BP Pulse Ox 02/08/19 15:43 37.0 C 77 17 106/59 L 98 02/08/19 07:37 36.6 C 80 18 111/57 L 90 (1) Osteomyelitis Laterality: right Osteomyelitis location: foot Osteomyelitis type: unspecified type Qualified Code(s): M86.9 - Osteomyelitis, unspecified
[2019-02-08] MEDS: ENOXAPARIN INJ 40 MG/0.4 ML SYR SQ SCH (18:51)
--- NOTE | 2019-02-08 20:15 | Infectious Disease Progress Nt ---
Date of Service February 08, 2019 Assessment & Plan (1) Osteomyelitis of great toe: 78-year-old female with diabetes and peripheral vascular disease with bilateral great toe osteomyelitis, appears clinically to have improved with antibiotic therapy. Will require prolonged i.e 6 weeks of IV abx for osteomyelitis. Would recommend combination of daptomycin and oral ciprofloxacin to cover MRSA and Serratia. Patient has prolonged QT interval, but has shown no increase, actually slightly better while on Cipro. Would reinstitute and follow EKG. We will continue to follow in hospital. (2) Serratia infection: (3) MRSA (methicillin resistant Staphylococcus aureus) infection: Subjective Patient seen in follow-up for osteomyelitis of the toes. Appears comfortable, offers no new complaints today. Appears to be tolerating antibiotics without apparent difficulty. Review of Systems Review of Systems: Unobtainable due to cognitive status Physical Exam Constitutional: WD/WN, vitals as above comfortable; no acute distress Eyes: PERRL, conjunctivae normal, anicteric sclerae ENMT: external ear and nose normal, oropharynx normal Neck: trachea midline, no thyromegaly neck nontender Respiratory: normal respiratory effort, lungs clear to auscultation normal percussion; does not use accessory muscles Cardiovascular: Rate/Rhythm: regular rate and regular rhythm Heart Sounds: normal S1 and normal S2; no gallop, no murmur and no cardiac rub Vessels: normal peripheral pulses; no JVD Gastrointestinal (Abdomen): normal bowel sounds, soft, nontender, no hepatosplenomegaly Musculoskeletal: no cyanosis or clubbing, extremities motor strength 5/5 Spine: thoracic spine normal to inspection and lumbar spine normal to in spection; no cervical spinal tenderness Skin: no rashes, warm and dry normal turgor and + wound (Right and left great toe medial ulcerations, superficial appearing, slight ) Neurologic: patellar DTR's 2+ bilat, sensation intact no focal motor deficits Psychiatric: A+Ox3, euthymic affect Orientation: cooperative Lymphatic: no cervical or axillary lymphadenopathy no inguinal lymphadenopathy Results & Data Vital Signs (Past 12 Hours) Vital Signs Temp Pulse Resp BP Pulse Ox 02/08/19 18:44 86 104/60 02/08/19 15:43 37.0 C 77 17 106/59 L 98 Laboratory Results Laboratory Results - last 48 hr 02/06/19 02/06/19 02/07/19 16:33 20:07 07:31 POC Glucose 206 H 158 H 203 H 02/07/19 02/07/19 02/07/19 11:32 11:32 14:00 POC Glucose 329 H* 363 H* 280 H 02/07/19 02/07/19 02/07/19 16:34 20:41 23:22 POC Glucose 157 H 151 H 134 H 02/08/19 02/08/19 02/08/19 08:18 11:57 11:58 POC Glucose 179 H 317 H* 283 H 02/08/19 02/08/19 11:59 17:17 POC Glucose 294 H 271 H Diagnostic Findings Microbiology 02/05/19 18:20 Urine,Indwelling Cath Urine Culture - Final Yeast not Katie albicans PG Care Time/CCT Total # of Minutes Spent Total Time Spent with Patient: Total time spent is greater than 50% in coord ination of care (as documented) at patient's floor/unit and/or counseling patient:
[2019-02-08] MEDS: CIPROFLOXACIN 250 MG TAB PO SCH (21:56)
[2019-02-08] MEDS: TOLTERODINE TARTRATE 1 MG TAB PO SCH (21:57)
[2019-02-09 06:54] LABS: Creatinine Clr Calc Pharmacy 30.2 ml/min; Est GFR (African American) 54.9; Est GFR (Non-African American) 47.3
[2019-02-09] MEDS: DAPTOmycin 300 MG in SYRINGE 0 ML IV SCH (08:22)
[2019-02-09] MEDS: MULTIVITAMIN TAB PO SCH (08:25)
[2019-02-09] MEDS: predniSONE 5 MG TAB PO SCH (08:25)
[2019-02-09] MEDS: CHOLECALCIFEROL (VITAMIN D) 400 UNITS TABLET PO SCH (08:25)
[2019-02-09] MEDS: DULOXETINE HCL 30 MG CAP PO SCH (08:25)
[2019-02-09] MEDS: carvediloL 12.5 MG TAB PO SCH ×2 (08:25→18:09)
[2019-02-09] MEDS: ASPIRIN 81 MG ECTAB PO SCH (08:26)
[2019-02-09] MEDS: FUROSEMIDE 40 MG TAB PO SCH (08:26)
[2019-02-09] MEDS: QUETIAPINE FUMARATE 25 MG TABLET PO SCH ×2 (08:26→21:29)
[2019-02-09] MEDS: DOCUSATE SODIUM/SENNA 50/8.6MG TAB PO SCH (08:27)
[2019-02-09] MEDS: TERBINAFINE HCL 250 MG TAB PO SCH (08:27)
[2019-02-09] MEDS: DOCUSATE SODIUM 100 MG CAP PO SCH ×2 (08:27→21:28)
[2019-02-09] MEDS: LORATADINE 10 MG TAB PO SCH (08:27)
[2019-02-09] MEDS: SPIRONOLACTONE 25 MG TAB PO SCH (08:27)
[2019-02-09] MEDS: GABAPENTIN 100 MG CAP PO SCH ×2 (08:28→18:09)
[2019-02-09] MEDS: CIPROFLOXACIN 250 MG TAB PO SCH ×2 (08:28→21:28)
[2019-02-09] MEDS: LOSARTAN POTASSIUM 25 MG TAB PO SCH (08:29)
[2019-02-09] MEDS: INSULIN DETEMIR FLEXPEN/FLEX TOUCH 100 UNITS/ML 3ML SC SCH (09:23)
[2019-02-09] MEDS: INSULIN ASPART 100 UNITS/ML 3 ML PEN SC SCH ×4 (09:24→21:45)
--- NOTE | 2019-02-09 09:43 | Pharmacy Report ---
Pharmacy Glycemic Short Note 2 - Date of Service February 09, 2019 - Glycemic Short BSG Results (Last 24 hours): 02/08/19 02/08/19 02/08/19 11:57 11:58 11:59 POC Glucose 317 H* 283 H 294 H 02/08/19 02/08/19 02/09/19 17:17 20:55 08:04 POC Glucose 271 H 122 H 156 H OUTPATIENT ANTIDIABETIC REGIMEN: * Insulin detemir (Levemir) 20 units SQ HS * NovoLog 7 units SQ TIDM * A1c = 8.4 % 01/22/19 ASSESSMENT: * 78yo T2DM female known to pharmacy from previous admissions/glycemic consults - most recently 01/21/19 admission * Pt with hypoglycemia last admission and outpatient regimen was reduced. Again, admitted with hypoglycemia. * BSGs ranging 122-294 mg/dL * Post prandial BSGs continue to fluctuate with lunch being the highest value (294 mg/dL yesterday) * Patient received 49 units of insulin (20 of which were basal) * Continues on daptomycin and ciprofloxacin for treatment of osteomyelitis PLAN FOR INPATIENT GLYCEMIC CONTROL: * Basal insulin * Levemir 20 units SC daily * Bolus insulin - continue current parameters * NovoLog per scale ACHS or Q6hrs while NPO * Goal Range: Low 100 mg/dL - High 140 mg/dL * Correction Factor: 25 mg/dL/unit * Nutritional / Prandial insulin per carb ratio of 1 unit per 5 grams CHO consumed PLAN FOR DISCHARGE: * Plan developed on 02/07/19 * A1c = 8.4% on 01/22/19 * Patient admitted with recurrent hypoglycemia, even after insulin doses reduced on last discharge. Hypoglycemia is thought to be due to poor appetite, which has improved * Recommend the following changes: * May resume Levemir 20 units qHS as long as appetite is stable. If appetite is poor, only give 15 units SQ qHS * Novolog 4 units with meals (hold if patient consumes less than 50% of meal) + conservative sliding scale * Blood Sugar 70-150 administer 0 units Blood Sugar 151-200 administer 1 units Blood Sugar 201-250 administer 3 units Blood Sugar 251-300 administer 5 units Blood Sugar 301-350 administer 7 units Blood Sugar 351-400 administer 9 units Blood Sugar >400 administer 11 units and call
[2019-02-09] MEDS: ENOXAPARIN INJ 40 MG/0.4 ML SYR SQ SCH (18:07)
--- NOTE | 2019-02-09 18:25 | Hospitalist Progress Note ---
Date of Service February 09, 2019 Assessment & Plan (1) Osteomyelitis: Nonhealing bilateral diabetic toe infection During recent admission, x-ray showed osteomyelitis the right great toe; no signs of osteomyelitis on x-ray of left great toe; unable to obtain MRI due to pacemaker Had been on doxycycline per wound care center; patient was evaluated by ID during recent admission who advised to continue doxycycline; patient completed course on 01/26 Wound culture from 01/16 grew MRSA and Serratia Per daughter, patient has been evaluated by orthopedics and vascular surgery as an outpatient for possible amputation however given her underlying severe PAD/advanced age: High risk for non-healing surgical wound Family agreeable for conservative treatment with IV antibiotic CT scans of bilateral great toes showing signs of osteomyelitis Patient input from infectious disease: Recommends patient should continue with IV daptomycin and p.o. ciprofloxacin for total 6 weeks therapy Oral ciprofloxacin resumed, monitor QTC Unable to have a PICC line/midline placed secondary to severe peripheral vascular disease Discussed with patient's daughter for option of JACC -patient may pull out the IV site, Would not put A port for short-term antibiotics-will not be appropriate/patient's family also against it Option for returning back to [facility] without any antibiotics and transition care to hospice discussed with patient's daughter Katey pompa who is the POA Wants to discuss with other family members, her other sister who is out of state-for making decision Patient's family will reach out to medicine team on Tuesday to discuss about goal of care We will IV antibiotics with daptomycin-she has been tolerating it well Continue p.o. ciprofloxacin (2) Diabetes mellitus, type 2: Patient presented from [facility] for hypoglycemia Recent admission to [facility] 01/21 through 01/24 for hypoglycemia and management of right great toe osteomyelitis She was discharge to [facility] on Levemir 20 units. Has been having poor appetite and continue received her Levemir 20units Developed Hypoglycemia in the 's HgbA1c 8.4 01/22/2019 Basal insulin dose reduced to 12 units at bedtime Very conservative sliding scale to prevent hypoglycemia Patient noted to develop hypoglycemia with BSG of 300, Pharmacy following for glycemic management, updated (3) Ischemic cardiomyopathy: (4) ICD (implantable cardioverter-defibrillator) in place: Echo 09/2018 EF 30 to 35% Appears euvolemic on exam Continue diuretics and aspirin Continue Coreg with holding parameters PROLONGED QTC Continue p.o. ciprofloxacin with daily EKG monitoring (5) PAD (peripheral artery disease): Severe peripheral vascular disease leading to nonhealing infected diabetic toe wound/leading to osteomyelitis IV team unable to place PICC line or midline due to poor vascular access Overall prognosis remains very poor (6) PMR (polymyalgia rheumatica): Continue chronic prednisone (7) Dementia: Very pleasantly demented, Very cooperative, comfortable on current setting No agitation noted (8) Pacemaker: stable (9) DVT prophylaxis: SQ Lovenox Disposition Continue to have discussion with family members regarding goal of care Subjective Elderly female, pleasantly demented, offers no complaint No fever or chills, No sign of distress, Patient been evaluated for Osteomyelitis of bilateral great toe Healing/treatment has been complicated secondary to patient's underlying diabetes, severe peripheral vascular disease To be a poor candidate for amputation/surgical procedure Plan is to treat conservatively Infectious disease has been following And will need 6 weeks of IV daptomycin/p.o. ciprofloxacin : Infected toe wound culture + for MRSA/Serratia IV team unable to place PICC line/midline-secondary to severe peripheral vascular disease Talk with patient's daughter Katey Leonardo ( POA ) : Phone number [phone] Discussed goal of care Daughter does not want any aggressive procedure,/surgery Physical Exam Constitutional: WD/WN, vitals as above no acute distress Eyes: PERRL, conjunctivae normal, anicteric sclerae ENMT: external ear and nose normal, oropharynx normal Respiratory: normal respiratory effort, lungs clear to auscultation normal respiratory effort; no respiratory distress Auscultation: + diminished lung sounds (Poor inspiratory effort) Cardiovascular: Rate/Rhythm: regular rate and regular rhythm Vessels: normal peripheral pulses Extremities: no edema Gastrointestinal (Abdomen): normal bowel sounds, soft, nontender, no hepatosplenomegaly Inspection/Auscultation: normal bowel sounds Percussion/Palpation: abdomen soft; abdomen nontender Musculoskeletal: no cyanosis or clubbing, extremities motor strength 5/5 Extremities: + foot abnormality ( Great Toe wound , bandage present ) Bilateral Skin: no rashes, warm and dry Neurologic: PERRL, EOMI, accommodation nl, no face palsy, no dysarthria Psychiatric: Orientation: alert; + not oriented to person, + not oriented to place and + not oriented to time Results & Data Vital Signs (Past 12 Hours) Vital Signs Temp Pulse Pulse Resp BP Pulse Ox 02/09/19 18:09 79 103/58 L 02/09/19 15:31 36.4 C L 75 17 116/66 98 02/09/19 11:40 36.4 C L 78 18 92/52 L 94 02/09/19 08:00 36.7 C 86 18 123/67 96 (1) Osteomyelitis Osteomyelitis type: unspecified type Osteomyelitis location: foot Laterality: right Qualified Code(s): M86.9 - Osteomyelitis, unspecified
[2019-02-09] MEDS: TOLTERODINE TARTRATE 1 MG TAB PO SCH (21:29)
[2019-02-10 05:54] LABS: Creatinine Clr Calc Pharmacy 36.8 ml/min; Est GFR (African American) 69.6; Est GFR (Non-African American) 60.1
[2019-02-10] MEDS: LOSARTAN POTASSIUM 25 MG TAB PO SCH (08:35)
[2019-02-10] MEDS: carvediloL 12.5 MG TAB PO SCH ×2 (08:36→17:24)
[2019-02-10] MEDS: DULOXETINE HCL 30 MG CAP PO SCH (08:37)
[2019-02-10] MEDS: MULTIVITAMIN TAB PO SCH (08:37)
[2019-02-10] MEDS: CHOLECALCIFEROL (VITAMIN D) 400 UNITS TABLET PO SCH (08:37)
[2019-02-10] MEDS: GABAPENTIN 100 MG CAP PO SCH ×2 (08:39→17:25)
[2019-02-10] MEDS: SPIRONOLACTONE 25 MG TAB PO SCH (08:40)
[2019-02-10] MEDS: CIPROFLOXACIN 250 MG TAB PO SCH ×2 (08:41→20:50)
[2019-02-10] MEDS: LORATADINE 10 MG TAB PO SCH (08:42)
[2019-02-10] MEDS: ASPIRIN 81 MG ECTAB PO SCH (08:43)
[2019-02-10] MEDS: TERBINAFINE HCL 250 MG TAB PO SCH (08:43)
[2019-02-10] MEDS: FUROSEMIDE 40 MG TAB PO SCH (08:44)
[2019-02-10] MEDS: INSULIN DETEMIR FLEXPEN/FLEX TOUCH 100 UNITS/ML 3ML SC SCH (08:45)
[2019-02-10] MEDS: predniSONE 5 MG TAB PO SCH (08:46)
[2019-02-10] MEDS: QUETIAPINE FUMARATE 25 MG TABLET PO SCH ×2 (08:47→20:52)
[2019-02-10] MEDS: INSULIN ASPART 100 UNITS/ML 3 ML PEN SC SCH ×4 (09:00→20:53)
[2019-02-10] MEDS: DOCUSATE SODIUM 100 MG CAP PO SCH ×2 (09:08→20:58)
[2019-02-10] MEDS: DOCUSATE SODIUM/SENNA 50/8.6MG TAB PO SCH (09:08)
[2019-02-10] MEDS: DAPTOmycin 300 MG in SYRINGE 0 ML IV SCH (09:08)
[2019-02-10] MEDS: ENOXAPARIN INJ 40 MG/0.4 ML SYR SQ SCH (17:25)
--- NOTE | 2019-02-10 17:55 | Hospitalist Progress Note ---
Date of Service February 10, 2019 Assessment & Plan (1) Osteomyelitis: Nonhealing bilateral diabetic toe infection During recent admission, x-ray showed osteomyelitis the right great toe; no signs of osteomyelitis on x-ray of left great toe; unable to obtain MRI due to pacemaker Had been on doxycycline per wound care center; patient was evaluated by ID during recent admission who advised to continue doxycycline; patient completed course on 01/26 Wound culture from 01/16 grew MRSA and Serratia Per daughter, patient has been evaluated by orthopedics and vascular surgery as an outpatient for possible amputation however given her underlying severe PAD/advanced age: High risk for non-healing surgical wound Family agreeable for conservative treatment with IV antibiotic CT scans of bilateral great toes showing signs of osteomyelitis Patient input from infectious disease: Recommends patient should continue with IV daptomycin and p.o. ciprofloxacin for total 6 weeks therapy Oral ciprofloxacin resumed, monitor QTC Unable to have a PICC line/midline placed secondary to severe peripheral vascular disease IV team able to put a ultrasound-guided peripheral line, which can be utilized for IV daptomycin treatment for next 5 weeks Family updated, (2) Diabetes mellitus, type 2: Patient presented from [facility] for hypoglycemia Recent admission to [facility] 01/21 through 01/24 for hypoglycemia and management of right great toe osteomyelitis She was discharge to [facility] on Levemir 20 units. Has been having poor appetite and continue received her Levemir 20units Developed Hypoglycemia in the 's HgbA1c 8.4 01/22/2019 Basal insulin dose reduced to 12 units at bedtime Very conservative sliding scale to prevent hypoglycemia Patient developed hyperglycemic episodes Appreciate pharmacy recommendation to adjust/reduce insulin regimen BSG has been stable (3) Ischemic cardiomyopathy: (4) ICD (implantable cardioverter-defibrillator) in place: Echo 09/2018 EF 30 to 35% Appears euvolemic on exam Continue diuretics and aspirin Continue Coreg with holding parameters PROLONGED QTC Continue p.o. ciprofloxacin with daily EKG monitoring (5) PAD (peripheral artery disease): Severe peripheral vascular disease leading to nonhealing infected diabetic toe wound/leading to osteomyelitis Ultrasound-guided peripheral line placed, Will be discharged to rehab for 5 more weeks of IV antibiotic treatment (6) PMR (polymyalgia rheumatica): Continue chronic prednisone (7) Dementia: Very pleasantly demented, Very cooperative, comfortable on current setting No agitation noted (8) Pacemaker: stable (9) DVT prophylaxis: SQ Lovenox Disposition Plan is to discharge patient to [facility] on Tuesday to continue 5 more weeks of IV antibiotics for toe osteomyelitis Subjective Patient's status remain unchanged, very pleasant advanced dementia, Has been afebrile, no sign of distress Given update by IV team, able to place ultrasound-guided peripheral line which can be used for IV antibiotics up to 5 weeks Talk with patient's daughter Katey Leonardo ( POA ) : Phone number [phone] Appreciative of the effort from the IV team wants her mother to complete IV antibiotic as recommended Plan is to transfer to [facility] on Tuesday for continued IV daptomycin Physical Exam Constitutional: WD/WN, vitals as above no acute distress Eyes: PERRL, conjunctivae normal, anicteric sclerae ENMT: external ear and nose normal, oropharynx normal Respiratory: normal respiratory effort, lungs clear to auscultation normal respiratory effort; no respiratory distress Auscultation: + diminished lung sounds (Poor inspiratory effort) Cardiovascular: Rate/Rhythm: regular rate and regular rhythm Vessels: normal peripheral pulses Extremities: no edema Gastrointestinal (Abdomen): normal bowel sounds, soft, nontender, no hepatosplenomegaly Inspection/Auscultation: normal bowel sounds Percussion/Palpation: abdomen soft; abdomen nontender Musculoskeletal: no cyanosis or clubbing, extremities motor strength 5/5 Extremities: + foot abnormality ( Great Toe wound , bandage present ) Skin: no rashes, warm and dry Neurologic: PERRL, EOMI, accommodation nl, no face palsy, no dysarthria Psychiatric: Orientation: alert; + not oriented to person, + not oriented to place and + not oriented to time Results & Data Vital Signs (Past 12 Hours) Vital Signs Temp Pulse Resp BP BP Pulse Ox 02/10/19 15:36 36.3 C L 83 16 119/71 96 02/10/19 07:32 36.6 C 79 18 120/69 95 (1) Osteomyelitis Laterality: right Osteomyelitis location: foot Osteomyelitis type: unspecified type Qualified Code(s): M86.9 - Osteomyelitis, unspecified
[2019-02-10] MEDS: TOLTERODINE TARTRATE 1 MG TAB PO SCH (20:52)
[2019-02-11] MEDS: CHOLECALCIFEROL (VITAMIN D) 400 UNITS TABLET PO SCH (08:37)
[2019-02-11] MEDS: carvediloL 12.5 MG TAB PO SCH ×2 (08:37→17:05)
[2019-02-11] MEDS: MULTIVITAMIN TAB PO SCH (08:38)
[2019-02-11] MEDS: FUROSEMIDE 40 MG TAB PO SCH (08:39)
[2019-02-11] MEDS: ASPIRIN 81 MG ECTAB PO SCH (08:39)
[2019-02-11] MEDS: TERBINAFINE HCL 250 MG TAB PO SCH (08:39)
[2019-02-11] MEDS: SPIRONOLACTONE 25 MG TAB PO SCH (08:40)
[2019-02-11] MEDS: GABAPENTIN 100 MG CAP PO SCH ×2 (08:40→17:19)
[2019-02-11] MEDS: LORATADINE 10 MG TAB PO SCH (08:40)
[2019-02-11] MEDS: CIPROFLOXACIN 250 MG TAB PO SCH ×2 (08:42→21:25)
[2019-02-11] MEDS: LOSARTAN POTASSIUM 25 MG TAB PO SCH (08:42)
[2019-02-11] MEDS: DULOXETINE HCL 30 MG CAP PO SCH (08:43)
[2019-02-11] MEDS: predniSONE 5 MG TAB PO SCH (08:43)
[2019-02-11] MEDS: QUETIAPINE FUMARATE 25 MG TABLET PO SCH ×2 (08:44→21:24)
[2019-02-11] MEDS: INSULIN ASPART 100 UNITS/ML 3 ML PEN SC SCH ×4 (09:03→21:23)
[2019-02-11] MEDS: INSULIN DETEMIR FLEXPEN/FLEX TOUCH 100 UNITS/ML 3ML SC SCH (09:03)
[2019-02-11] MEDS: DAPTOmycin 300 MG in SYRINGE 0 ML IV SCH (10:09)
--- NOTE | 2019-02-11 10:51 | Pharmacy Report ---
Pharmacy Glycemic Short Note 2 - Date of Service February 11, 2019 - Glycemic Short BSG Results (Last 24 hours): 02/10/19 02/10/19 02/10/19 12:04 17:08 20:42 POC Glucose 172 H 149 H 254 H 02/11/19 08:31 POC Glucose 161 H OUTPATIENT ANTIDIABETIC REGIMEN: * Insulin detemir (Levemir) 20 units SQ HS * NovoLog 7 units SQ TIDM * A1c = 8.4 % 01/22/19 ASSESSMENT: * BSGs have remained well controlled. No acute fluctuations in insulin requirements are anticipated. We will cont with standing insulin orders. PLAN FOR INPATIENT GLYCEMIC CONTROL: * Basal insulin * Levemir 20 units SC daily * Bolus insulin - continue current parameters * NovoLog per scale ACHS or Q6hrs while NPO * Goal Range: Low 100 mg/dL - High 140 mg/dL * Correction Factor: 25 mg/dL/unit * Nutritional / Prandial insulin per carb ratio of 1 unit per 5 grams CHO consumed
[2019-02-11] MEDS: DOCUSATE SODIUM/SENNA 50/8.6MG TAB PO SCH (12:26)
[2019-02-11] MEDS: DOCUSATE SODIUM 100 MG CAP PO SCH ×2 (12:26→21:32)
--- NOTE | 2019-02-11 13:45 | Hospitalist Progress Note ---
Date of Service February 11, 2019 Assessment & Plan (1) Osteomyelitis: Nonhealing bilateral diabetic toe infection During recent admission, x-ray showed osteomyelitis the right great toe; no signs of osteomyelitis on x-ray of left great toe; unable to obtain MRI due to pacemaker Had been on doxycycline per wound care center; patient was evaluated by ID during recent admission who advised to continue doxycycline; patient completed course on 01/26 Wound culture from 01/16 grew MRSA and Serratia Per daughter, patient has been evaluated by orthopedics and vascular surgery as an outpatient for possible amputation however given her underlying severe PAD/advanced age: High risk for non-healing surgical wound Family agreeable for conservative treatment with IV antibiotic CT scans of bilateral great toes showing signs of osteomyelitis Patient input from infectious disease: Recommends patient should continue with IV daptomycin and p.o. ciprofloxacin for total 6 weeks therapy Oral ciprofloxacin resumed, monitor QTC Unable to have a PICC line/midline placed secondary to severe peripheral vascular disease IV team able to put a ultrasound-guided peripheral line, which can be utilized for IV daptomycin treatment for next 5 weeks Family updated, Talk with patient's daughter Katey Leonardo ( POA ) : Phone number [phone] Appreciative of the effort from the IV team wants her mother to complete IV antibiotic as recommended by ID Dr kang Plan is to transfer to [facility] in next 24-48 hrs for continued IV daptomycin (2) Diabetes mellitus, type 2: Patient presented from [facility] with hypoglycemia Recent admission to [facility] 01/21 through 01/24 for hypoglycemia and management of right great toe osteomyelitis OUTPATIENT ANTIDIABETIC REGIMEN: Insulin detemir (Levemir) 20 units SQ HS NovoLog 7 units SQ TIDM A1c = 8.4 % 01/22/19 Developed Hypoglycemia in the 's Basal insulin dose reduced to 12 units at bedtime started on Very conservative sliding scale to prevent hypoglycemia pt been having intermittently Hyperglycemic episodes evening BSG > 300 Appreciate pharmacy recommendation to adjust/reduce insulin regimen at present in patient Insulin regimen /Per pharmacy Basal insulin : Levemir 20 units SC daily NovoLog per scale Goal Range: Low 100 mg/dL - High 140 mg/dL Correction Factor: 25 mg/dL/unit carb ratio of 1 unit per 5 grams CHO consumed cont to monitor BSG AC and HS (3) Ischemic cardiomyopathy: stable (4) ICD (implantable cardioverter-defibrillator) in place: Echo 09/2018 EF 30 to 35% remains euvolumic Continue diuretics and aspirin Continue Coreg with holding parameters PROLONGED QTC Continue p.o. ciprofloxacin with daily EKG monitoring (5) PAD (peripheral artery disease): Severe peripheral vascular disease leading to nonhealing infected diabetic toe wound/leading to osteomyelitis Ultrasound-guided peripheral line placed, pt already had approx 2 weeks of IV abx in hospital will be discharged to Acute rehab ( [facility] ) for 4 more weeks of IV Daptomycin has USG guided line placed , good for next 5 weeks (6) PMR (polymyalgia rheumatica): Continue chronic prednisone (7) Dementia: Very pleasantly demented, Very cooperative, comfortable on current setting No agitation noted (8) Pacemaker: stable (9) DVT prophylaxis: SQ Lovenox Disposition Plan is to discharge patient to [facility] on Tuesday to continue 4 more weeks of IV antibiotics for toe osteomyelitis Subjective Patient's status remain unchanged, very pleasant advanced dementia, Sitting up on chair, Has been afebrile, no sign of distress Has ultrasound-guided IV access placed on left arm, She has been tolerating IV IV antibiotics/daptomycin well No fever or chills Abdominal pain, no nausea vomiting or diarrhea Physical Exam Constitutional: WD/WN, vitals as above no acute distress Eyes: PERRL, conjunctivae normal, anicteric sclerae ENMT: external ear and nose normal, oropharynx normal Respiratory: normal respiratory effort, lungs clear to auscultation normal respiratory effort; no respiratory distress Auscultation: + diminished lung sounds (Poor inspiratory effort) Cardiovascular: Rate/Rhythm: regular rate and regular rhythm Vessels: normal peripheral pulses Extremities: no edema Gastrointestinal (Abdomen): normal bowel sounds, soft, nontender, no hepatosplenomegaly Inspection/Auscultation: normal bowel sounds Percussion/Palpation: abdomen soft; abdomen nontender Musculoskeletal: no cyanosis or clubbing, extremities motor strength 5/5 Extremities: + foot abnormality ( Great Toe wound , bandage present ) Skin: no rashes, warm and dry Neurologic: PERRL, EOMI, accommodation nl, no face palsy, no dysarthria Psychiatric: Orientation: alert; + not oriented to person, + not oriented to place and + not oriented to time Results & Data Vital Signs (Past 12 Hours) Vital Signs Temp Pulse Resp BP BP Pulse Ox 02/11/19 07:47 36.8 C 82 20 114/78 98 02/11/19 07:41 36.4 C L 77 16 100/60 97 (1) Osteomyelitis Laterality: right Osteomyelitis location: foot Osteomyelitis type: unspecified type Qualified Code(s): M86.9 - Osteomyelitis, unspecified
[2019-02-11] MEDS: ENOXAPARIN INJ 40 MG/0.4 ML SYR SQ SCH (17:19)
[2019-02-11] MEDS: TOLTERODINE TARTRATE 1 MG TAB PO SCH (21:25)
[2019-02-12 06:05] LABS: Creatinine Clr Calc Pharmacy 31.3 ml/min; Est GFR (African American) 57.3; Est GFR (Non-African American) 49.5
[2019-02-12] MEDS: GABAPENTIN 100 MG CAP PO SCH ×2 (08:19→17:17)
[2019-02-12] MEDS: carvediloL 12.5 MG TAB PO SCH ×2 (08:19→17:13)
[2019-02-12] MEDS: SPIRONOLACTONE 25 MG TAB PO SCH (08:21)
[2019-02-12] MEDS: CIPROFLOXACIN 250 MG TAB PO SCH ×2 (08:23→20:48)
[2019-02-12] MEDS: LORATADINE 10 MG TAB PO SCH (08:23)
[2019-02-12] MEDS: DOCUSATE SODIUM 100 MG CAP PO SCH ×2 (08:24→20:48)
[2019-02-12] MEDS: DULOXETINE HCL 30 MG CAP PO SCH (08:24)
[2019-02-12] MEDS: LOSARTAN POTASSIUM 25 MG TAB PO SCH (08:24)
[2019-02-12] MEDS: ASPIRIN 81 MG ECTAB PO SCH (08:25)
[2019-02-12] MEDS: TERBINAFINE HCL 250 MG TAB PO SCH (08:25)
[2019-02-12] MEDS: predniSONE 5 MG TAB PO SCH (08:26)
[2019-02-12] MEDS: FUROSEMIDE 40 MG TAB PO SCH (08:26)
[2019-02-12] MEDS: MULTIVITAMIN TAB PO SCH (08:26)
[2019-02-12] MEDS: DOCUSATE SODIUM/SENNA 50/8.6MG TAB PO SCH (08:27)
[2019-02-12] MEDS: CHOLECALCIFEROL (VITAMIN D) 400 UNITS TABLET PO SCH (08:27)
[2019-02-12] MEDS: QUETIAPINE FUMARATE 25 MG TABLET PO SCH ×2 (08:27→20:49)
[2019-02-12] MEDS: INSULIN DETEMIR FLEXPEN/FLEX TOUCH 100 UNITS/ML 3ML SC SCH (09:24)
[2019-02-12] MEDS: INSULIN ASPART 100 UNITS/ML 3 ML PEN SC SCH ×4 (09:26→20:56)
[2019-02-12] MEDS: DAPTOmycin 300 MG in SYRINGE 0 ML IV SCH (09:29)
--- NOTE | 2019-02-12 14:08 | Infectious Disease Progress Nt ---
Date of Service February 12, 2019 Assessment & Plan (1) Osteomyelitis of toe of right foot: Patient with osteomyelitis of the toes, undergoing medical management because of inability to proceed with surgery. Patient to continue on daptomycin and ciprofloxacin as outlined. Repeat EKG ordered to reassess QT interval on ciprofloxacin. Will follow. (2) MRSA (methicillin resistant Staphylococcus aureus) infection: (3) Serratia infection: Subjective Patient seen in follow-up for osteomyelitis of the toes. Continues on daptomycin and ciprofloxacin which he is tolerating without apparent difficulty. Last EKG showed no change in QT interval. Offers no specific complaints. Remains afebrile. Review of Systems Review of Systems: Unobtainable due to cognitive status Physical Exam Constitutional: WD/WN, vitals as above comfortable; no acute distress Eyes: PERRL, conjunctivae normal, anicteric sclerae ENMT: external ear and nose normal, oropharynx normal Neck: trachea midline, no thyromegaly neck nontender Respiratory: normal respiratory effort, lungs clear to auscultation normal percussion; does not use accessory muscles Cardiovascular: Rate/Rhythm: regular rate and regular rhythm Heart Sounds: normal S1 and normal S2; no gallop, no murmur and no cardiac rub Vessels: normal peripheral pulses; no JVD Gastrointestinal (Abdomen): normal bowel sounds, soft, nontender, no hepatosplenomegaly Musculoskeletal: no cyanosis or clubbing, extremities motor strength 5/5 Spine: thoracic spine normal to inspection and lumbar spine normal to inspection; no cervical spinal tenderness Skin: no rashes, warm and dry normal turgor and + wound (Toes appear uncha nged); no lesions Neurologic: patellar DTR's 2+ bilat, sensation intact no focal motor deficits Psychiatric: A+Ox3, euthymic affect Orientation: cooperative Lymphatic: no cervical or axillary lymphadenopathy no inguinal lymphadenopathy Results & Data Vital Signs (Past 12 Hours) Vital Signs Temp Pulse Pulse Resp BP Pulse Ox 02/12/19 13:43 59 L 18 141/49 H 96 02/12/19 08:39 36.3 C L 74 16 105/71 98 Laboratory Results [facility] 02/12/19 05:14 Creatinine 1.08 Diagnostic Findings Microbiology 02/05/19 18:20 Urine,Indwelling Cath Urine Culture - Final Yeast not Aktie albicans PG Care Time/CCT Total # of Minutes Spent Total Time Spent with Patient: Total time spent is greater than 50% in coordination of care (as documented) at patient's floor/unit and/or counseling patient:
--- NOTE | 2019-02-12 16:11 | Pharmacy Report ---
Pharmacy Glycemic Short Note 2 - Date of Service February 12, 2019 - Glycemic Short BSG Results (Last 24 hours): 02/11/19 02/11/19 02/11/19 17:16 17:19 20:43 POC Glucose 304 H* 315 H* 250 H 02/12/19 08:05 POC Glucose 174 H OUTPATIENT ANTIDIABETIC REGIMEN: * Insulin detemir (Levemir) 20 units SQ HS * NovoLog 7 units SQ TIDM * A1c = 8.4 % 01/22/19 ASSESSMENT: * BSGs have been elevated. However, hesitant to be too aggressive with changes as Novolog parameters are already very tight and patient has had hypoglycemia (severe) on admit with *lower* doses of insulin than the patient is currently receiving * Will loosen CHO ratio as patient's PO intake has been very poor and I am concerned that if she were to consume significant CHO that it may precipitate a hypoglycemic event * Will cautiously increase Levemir and cautiously tighten Novolog correction factor PLAN FOR INPATIENT GLYCEMIC CONTROL: * Basal insulin: Levemir SC daily based on BSG * 15 units for BSG less than 110 mg/dL * 20 units for BSG 110-160 mg/dL * 25 units for BSG greater than 160 mg/dL * Bolus insulin * NovoLog per scale ACHS or Q6hrs while NPO * Goal Range: Low 100 mg/dL - High 140 mg/dL * Correction Factor: 20 mg/dL/unit * Nutritional / Prandial insulin per carb ratio of 1 unit per 6 grams CHO consumed
[2019-02-12] MEDS: ENOXAPARIN INJ 40 MG/0.4 ML SYR SQ SCH (17:17)
--- NOTE | 2019-02-12 17:44 | Hospitalist Progress Note ---
Date of Service February 12, 2019 Assessment & Plan (1) Osteomyelitis: Nonhealing bilateral diabetic toe infection During recent admission, x-ray showed osteomyelitis the right great toe; no signs of osteomyelitis on x-ray of left great toe; unable to obtain MRI due to pacemaker Had been on doxycycline per wound care center; patient was evaluated by ID during recent admission who advised to continue doxycycline; patient completed course on 01/26 Wound culture from 01/16 grew MRSA and Serratia Per daughter, patient has been evaluated by orthopedics and vascular surgery as an outpatient for possible amputation however given her underlying severe PAD/advanced age: High risk for non-healing surgical wound Family agreeable for conservative treatment with IV antibiotic CT scans of bilateral great toes showing signs of osteomyelitis Patient input from infectious disease: Recommends patient should continue with IV daptomycin and p.o. ciprofloxacin for total 6 weeks therapy Oral ciprofloxacin resumed, monitor QTC; EKG shows Qtc remains in ~500 , no worsening noted Unable to have a PICC line/midline placed secondary to severe peripheral vascular disease IV team able to put a ultrasound-guided peripheral line, which can be utilized for IV daptomycin treatment for next 4 weeks( pt received 2 weeks of IV abx therapy already Family updated, Talk with patient's daughter Katey Leonardo ( POA ) : Phone number [phone] Appreciative of the effort from the IV team wants her mother to complete IV antibiotic as recommended by ID Dr kang received call form Case management acute rehab to [facility] CM requests for a Peer to Peer review (2) Diabetes mellitus, type 2: Patient presented from [facility] with hypoglycemia Recent admission to [facility] 01/21 through 01/24 for hypoglycemia and management of right great toe osteomyelitis OUTPATIENT ANTIDIABETIC REGIMEN: Insulin detemir (Levemir) 20 units SQ HS NovoLog 7 units SQ TIDM A1c = 8.4 % 01/22/19 Developed Hypoglycemia in the 20's Basal insulin dose reduced to 12 units at bedtime started on Very conservative sliding scale to prevent hypoglycemia pt been having intermittently Hyperglycemic episodes evening BSG > 300 Appreciate pharmacy recommendation to adjust/reduce insulin regimen at present in patient Insulin regimen /Per pharmacy Basal insulin : Levemir 20 units SC daily NovoLog per scale Goal Range: Low 100 mg/dL - High 140 mg/dL Correction Factor: 25 mg/dL/unit carb ratio of 1 unit per 5 grams CHO consumed cont to monitor BSG AC and HS (3) Ischemic cardiomyopathy: stable (4) ICD (implantable cardioverter-defibrillator) in place: Echo 09/2018 EF 30 to 35% remains euvolumic Continue diuretics and aspirin Continue Coreg with holding parameters PROLONGED QTC Continue p.o. ciprofloxacin with daily EKG monitoring (5) PAD (peripheral artery disease): Severe peripheral vascular disease leading to nonhealing infected diabetic toe wound/leading to osteomyelitis Ultrasound-guided peripheral line placed, pt already had approx 2 weeks of IV abx in hospital will be discharged to Acute rehab ( [facility] ) for 4 more weeks of IV Daptomycin has USG guided line placed , good for next 5 weeks (6) PMR (polymyalgia rheumatica): Continue chronic prednisone (7) Dementia: Very pleasantly demented, Very cooperative, comfortable on current setting No agitation noted (8) Pacemaker: stable (9) DVT prophylaxis: SQ Lovenox Disposition Plan is to discharge patient to acute rehab to continue 4 more weeks of IV antibiotics for toe osteomyelitis Subjective pt offers no complain very please , baseline dementia no fever or chills tolerating iv daptomycin on Continues on daptomycin and ciprofloxacin which he is tolerating without apparent difficulty. Last EKG showed no change in QT interval. Offers no specific complaints. Remains afebrile. Physical Exam Constitutional: WD/WN, vitals as above no acute distress Eyes: PERRL, conjunctivae normal, anicteric sclerae ENMT: external ear and nose normal, oropharynx normal Respiratory: normal respiratory effort, lungs clear to auscultation normal respiratory effort; no respiratory distress Auscultation: + diminished lung sounds (Poor inspiratory effort) Cardiovascular: Rate/Rhythm: regular rate and regular rhythm Vessels: normal peripheral pulses Extremities: no edema Gastrointestinal (Abdomen): normal bowel sounds, soft, nontender, no hepatosplenomegaly Inspection/Auscultation: normal bowel sounds Percussion/Palpation: abdomen soft; abdomen nontender Musculoskeletal: no cyanosis or clubbing, extremities motor strength 5/5 Extremities: + foot abnormality ( Great Toe wound , bandage present ) Skin: no rashes, warm and dry Neurologic: PERRL, EOMI, accommodation nl, no face palsy, no dysarthria Psychiatric: Orientation: alert; + not oriented to person, + not oriented to place and + not oriented to time Results & Data Vital Signs (Past 12 Hours) Vital Signs Temp Pulse Pulse Resp BP Pulse Ox 02/12/19 17:13 80 99/63 L 02/12/19 15:50 91/54 L 02/12/19 15:49 36.7 C 79 18 89/55 L 99 02/12/19 15:34 82 12 87/56 L 96 02/12/19 13:43 59 L 18 141/49 H 96 02/12/19 08:39 36.3 C L 74 16 105/71 98 (1) Osteomyelitis Laterality: right Osteomyelitis location: foot Osteomyelitis type: unspecified type Qualified Code(s): M86.9 - Osteomyelitis, unspecified
[2019-02-12] MEDS ORDERED: BISACODYL 10 MG SUPP PR STA (18:27)
[2019-02-12] MEDS: POLYETHYLENE (MIRALAX) 17 GM PACK PO SCH (20:48)
[2019-02-12] MEDS: TOLTERODINE TARTRATE 1 MG TAB PO SCH (20:48)
[2019-02-13] MEDS ORDERED: INSULIN ASPART 100 UNITS/ML 3 ML PEN SC ONE (02:00)
[2019-02-13 07:01] LABS: Est GFR (African American) 67.8; Est GFR (Non-African American) 58.5
[2019-02-13] MEDS: DOCUSATE SODIUM/SENNA 50/8.6MG TAB PO SCH (08:18)
[2019-02-13] MEDS: LORATADINE 10 MG TAB PO SCH (08:18)
[2019-02-13] MEDS: QUETIAPINE FUMARATE 25 MG TABLET PO SCH ×2 (08:18→20:31)
[2019-02-13] MEDS: ASPIRIN 81 MG ECTAB PO SCH (08:19)
[2019-02-13] MEDS: GABAPENTIN 100 MG CAP PO SCH ×2 (08:19→17:31)
[2019-02-13] MEDS: CIPROFLOXACIN 250 MG TAB PO SCH ×2 (08:19→20:33)
[2019-02-13] MEDS: CHOLECALCIFEROL (VITAMIN D) 400 UNITS TABLET PO SCH (08:19)
[2019-02-13] MEDS: DOCUSATE SODIUM 100 MG CAP PO SCH ×2 (08:19→20:32)
[2019-02-13] MEDS: predniSONE 5 MG TAB PO SCH (08:20)
[2019-02-13] MEDS: MULTIVITAMIN TAB PO SCH (08:20)
[2019-02-13] MEDS: carvediloL 12.5 MG TAB PO SCH ×2 (08:42→17:26)
[2019-02-13] MEDS: DAPTOmycin 300 MG in SYRINGE 0 ML IV SCH (08:49)
[2019-02-13] MEDS: INSULIN ASPART 100 UNITS/ML 3 ML PEN SC SCH ×4 (08:49→20:57)
[2019-02-13] MEDS: INSULIN DETEMIR FLEXPEN/FLEX TOUCH 100 UNITS/ML 3ML SC SCH (08:52)
[2019-02-13] MEDS: POLYETHYLENE (MIRALAX) 17 GM PACK PO SCH ×2 (09:00→20:37)
[2019-02-13] MEDS: ENOXAPARIN INJ 40 MG/0.4 ML SYR SQ SCH (17:30)
--- NOTE | 2019-02-13 17:46 | Hospitalist Progress Note ---
Date of Service February 13, 2019 Assessment & Plan (1) Osteomyelitis: Nonhealing bilateral diabetic toe infection During recent admission, x-ray showed osteomyelitis the right great toe; no signs of osteomyelitis on x-ray of left great toe; unable to obtain MRI due to pacemaker Had been on doxycycline per wound care center; patient was evaluated by ID during recent admission who advised to continue doxycycline; patient completed course on 01/26 Wound culture from 01/16 grew MRSA and Serratia Per daughter, patient has been evaluated by orthopedics and vascular surgery as an outpatient for possible amputation however given her underlying severe PAD/advanced age: High risk for non-healing surgical wound Family agreeable for conservative treatment with IV antibiotic CT scans of bilateral great toes showing signs of osteomyelitis Patient input from infectious disease: Recommends patient should continue with IV daptomycin and p.o. ciprofloxacin for total 6 weeks therapy Oral ciprofloxacin resumed, monitor QTC; EKG shows Qtc remains in ~500 , no worsening noted Unable to have a PICC line/midline placed secondary to severe peripheral vascular disease IV team able to put a ultrasound-guided peripheral line, which can be utilized for IV daptomycin treatment for next 4 weeks( pt received 2 weeks of IV abx therapy already Family updated, Talk with patient's daughter Katey Leonardo ( POA ) : Phone number [phone] Appreciative of the effort from the IV team wants her mother to complete IV antibiotic as recommended by ID Dr kang received call form Case management acute rehab to [facility] health denied CM requests for a Peer to Peer review Peer to Peer review Done with [facility] director of consulting services as pt is back to her baseline functional status , based on the last PT/OT report will not qualify for Acute rehab -without any Physical therapy needs ( just for IV Abx ) But agreed to authorize Skilled rehab -and cover the cost for IV Daptomycin for 4 weeks CM notified referral made to [facility] pt can be transferred to SNF when bed available with coverage for 4 weeks of IV ABx pt will need Weekly Lab draw: CK level , Creatinine level and EKG ( to assess Qtc level while on PO Cipro) (2) Diabetes mellitus, type 2: Patient presented from [facility] with hypoglycemia Recent admission to [facility] 01/21 through 01/24 for hypoglycemia and management of right great toe osteomyelitis OUTPATIENT ANTIDIABETIC REGIMEN: Insulin detemir (Levemir) 20 units SQ HS NovoLog 7 units SQ TIDM A1c = 8.4 % 01/22/19 Developed Hypoglycemia in the 's Basal insulin dose reduced to 12 units at bedtime started on Very conservative sliding scale to prevent hypoglycemia pt been having intermittently Hyperglycemic episodes evening BSG > 300 Appreciate pharmacy recommendation to adjust/reduce insulin regimen at present in patient Insulin regimen /Per pharmacy Basal insulin : Levemir 20 units SC daily NovoLog per scale Goal Range: Low 100 mg/dL - High 140 mg/dL Correction Factor: 25 mg/dL/unit carb ratio of 1 unit per 5 grams CHO consumed cont to monitor BSG AC and HS (3) Ischemic cardiomyopathy: stable (4) ICD (implantable cardioverter-defibrillator) in place: Echo 09/2018 EF 30 to 35% remains euvolumic Continue diuretics and aspirin Continue Coreg with holding parameters PROLONGED QTC Continue p.o. ciprofloxacin with daily EKG monitoring (5) PAD (peripheral artery disease): Severe peripheral vascular disease leading to nonhealing infected diabetic toe wound/leading to osteomyelitis Ultrasound-guided peripheral line placed, pt already had approx 2 weeks of IV abx in hospital will be discharged to Acute rehab ( [facility] ) for 4 more weeks of IV Daptomycin has USG guided line placed , good for the duration of abx (6) PMR (polymyalgia rheumatica): Continue chronic prednisone (7) Dementia: Very pleasantly demented, Very cooperative, comfortable on current setting No agitation noted (8) Pacemaker: stable (9) DVT prophylaxis: SQ Lovenox Disposition Plan is to discharge patient to skilled rehab to continue 4 more weeks of IV antibiotics for toe osteomyelitis Subjective no change in status , remains afebrile no sign of pain or discomfort very pleasant with baseline advanced dementia Physical Exam Constitutional: WD/WN, vitals as above no acute distress Eyes: PERRL, conjunctivae normal, anicteric sclerae ENMT: external ear and nose normal, oropharynx normal Respiratory: normal respiratory effort, lungs clear to auscultation normal respiratory effort; no respiratory distress Auscultation: + diminished lung sounds (Poor inspiratory effort) Cardiovascular: Rate/Rhythm: regular rate and regular rhythm Vessels: normal peripheral pulses Extremities: no edema Gastrointestinal (Abdomen): normal bowel sounds, soft, nontender, no hepatosplenomegaly Inspection/Auscultation: normal bowel sounds Percussion/Palpation: abdomen soft; abdomen nontender Musculoskeletal: no cyanosis or clubbing, extremities motor strength 5/5 Extremities: + foot abnormality ( Great Toe wound , bandage present ) Skin: no rashes, warm and dry Neurologic: PERRL, EOMI, accommodation nl, no face palsy, no dysarthria Psychiatric: Orientation: alert; + not oriented to person, + not oriented to place and + not oriented to time Results & Data Vital Signs (Past 12 Hours) Vital Signs Temp Pulse Resp BP BP Pulse Ox 02/13/19 15:31 36.5 C 88 17 113/71 93 02/13/19 08:42 36.4 C L 02/13/19 08:13 35.8 C L 75 16 95/57 L 98 (1) Osteomyelitis Osteomyelitis type: unspecified type Osteomyelitis location: foot Lateral ity: right Qualified Code(s): M86.9 - Osteomyelitis, unspecified
[2019-02-13] MEDS: TOLTERODINE TARTRATE 1 MG TAB PO SCH (20:32)
[2019-02-14] MEDS: INSULIN ASPART 100 UNITS/ML 3 ML PEN SC SCH ×4 (08:51→21:29)
[2019-02-14] MEDS: carvediloL 12.5 MG TAB PO SCH ×2 (08:53→18:04)
[2019-02-14] MEDS: CIPROFLOXACIN 250 MG TAB PO SCH ×2 (08:53→20:17)
[2019-02-14] MEDS: GABAPENTIN 100 MG CAP PO SCH ×2 (08:54→18:09)
[2019-02-14] MEDS: CHOLECALCIFEROL (VITAMIN D) 400 UNITS TABLET PO SCH (08:54)
[2019-02-14] MEDS: DOCUSATE SODIUM/SENNA 50/8.6MG TAB PO SCH (08:54)
[2019-02-14] MEDS: QUETIAPINE FUMARATE 25 MG TABLET PO SCH ×2 (08:55→20:18)
[2019-02-14] MEDS: MULTIVITAMIN TAB PO SCH (08:56)
[2019-02-14] MEDS: ASPIRIN 81 MG ECTAB PO SCH (08:56)
[2019-02-14] MEDS: DOCUSATE SODIUM 100 MG CAP PO SCH ×2 (08:56→20:19)
[2019-02-14] MEDS: LORATADINE 10 MG TAB PO SCH (08:57)
[2019-02-14] MEDS: predniSONE 5 MG TAB PO SCH (08:57)
[2019-02-14] MEDS: INSULIN DETEMIR FLEXPEN/FLEX TOUCH 100 UNITS/ML 3ML SC SCH (08:58)
[2019-02-14] MEDS: POLYETHYLENE (MIRALAX) 17 GM PACK PO SCH ×2 (08:58→20:17)
[2019-02-14] MEDS: DAPTOmycin 300 MG in SYRINGE 0 ML IV SCH (09:01)
--- NOTE | 2019-02-14 12:49 | Hospitalist Progress Note ---
Date of Service February 14, 2019 Assessment & Plan (1) Osteomyelitis: Nonhealing bilateral diabetic toe infection During recent admission, x-ray showed osteomyelitis the right great toe; no signs of osteomyelitis on x-ray of left great toe; unable to obtain MRI due to pacemaker Had been on doxycycline per wound care center; patient was evaluated by ID during recent admission who advised to continue doxycycline; patient completed course on 01/26 Wound culture from 01/16 grew MRSA and Serratia Per daughter, patient has been evaluated by orthopedics and vascular surgery as an outpatient for possible amputation however given her underlying severe PAD/advanced age: High risk for non-healing surgical wound Family agreeable for conservative treatment with IV antibiotic CT scans of bilateral great toes showing signs of osteomyelitis Consulted infectious disease: Recommends patient should continue with IV daptomycin and p.o. ciprofloxacin for total 6 weeks therapy Oral ciprofloxacin resumed, monitor QTC; EKG shows Qtc remains in ~500 , no worsening noted Unable to have a PICC line/midline placed secondary to severe peripheral vascular disease IV team able to put a ultrasound-guided peripheral line, which can be utilized for IV daptomycin treatment for next 4 weeks( pt received 2 weeks of IV abx therapy already Family updated, Talk with patient's daughter Katey Leonardo ( POA ) : Phone number [phone] Appreciative of the effort from the IV team wants her mother to complete IV antibiotic as recommended by ID Dr kang received call form Case management acute rehab to [facility] health denied CM requests for a Peer to Peer review Peer to Peer review Done with [facility] fashion director as pt is back to her baseline functional status , based on the last PT/OT report will not qualify for Acute rehab -without any Physical therapy needs ( just for IV Abx ) But agreed to authorize Skilled rehab -and cover the cost for IV Daptomycin for 4 weeks CM notified referral made to [facility] pt can be transferred to SNF when bed available with coverage for 4 weeks of IV ABx pt will need Weekly Lab draw: CK level , Creatinine level and EKG ( to assess Qtc level while on PO Cipro) (2) Diabetes mellitus, type 2: Patient presented from [facility] with hypoglycemia Recent admission to [facility] 01/21 through 01/24 for hypoglycemia and management of right great toe osteomyelitis OUTPATIENT ANTIDIABETIC REGIMEN: Insulin detemir (Levemir) 20 units SQ HS NovoLog 7 units SQ TIDM A1c = 8.4 % 01/22/19 Developed Hypoglycemia in the 20's Basal insulin dose reduced to 12 units at bedtime started on Very conservative sliding scale to prevent hypoglycemia pt been having intermittently Hyperglycemic episodes evening BSG > 300 Appreciate pharmacy recommendation to adjust/reduce insulin regimen at present in patient Insulin regimen /Per pharmacy Basal insulin : Levemir 20 units SC daily NovoLog per scale Goal Range: Low 100 mg/dL - High 140 mg/dL Correction Factor: 25 mg/dL/unit carb ratio of 1 unit per 5 grams CHO consumed cont to monitor BSG AC and HS (3) Ischemic cardiomyopathy: stable (4) ICD (implantable cardioverter-defibrillator) in place: Echo 09/2018 EF 30 to 35% remains euvolemic Continue diuretics and aspirin Continue Coreg with holding parameters PROLONGED QTC Continue p.o. ciprofloxacin with daily EKG monitoring (5) PAD (peripheral artery disease): Severe peripheral vascular disease leading to nonhealing infected diabetic toe wound/leading to osteomyelitis Ultrasound-guided peripheral line placed, pt already had approx 2 weeks of IV abx in hospital will be discharged to Acute rehab ( [facility] ) for 4 more weeks of IV Daptomycin has USG guided line placed , good for the duration of abx (6) PMR (polymyalgia rheumatica): Continue chronic prednisone (7) Dementia: Very pleasantly demented, Very cooperative, comfortable on current setting No agitation noted (8) Pacemaker: stable (9) DVT prophylaxis: SQ Lovenox Disposition Plan is to discharge patient to skilled rehab to continue 4 more weeks of IV antibiotics for toe osteomyelitis Subjective Elderly female lying in bed, in no acute distress. Patient denies any fevers, chills, chest pain, shortness of breath, abdominal pain, nausea, vomiting. Unfortunately patient does not always answer appropriately secondary to dementia . Review of Systems Review of Systems: All systems reviewed & are unremarkable except as noted in HPI & below Constitutional: no fever, no chills and no body aches Respiratory: no cough and no dyspnea Cardiovascular: no chest pain, no palpitations and no edema Gastrointestinal: no abdominal pain, no nausea and no vomiting Physical Exam Physical Exam: Constitutional: Elderly female laying in bed in no acute distress WD/WN Eyes: PERRL, conjunctivae normal, anicteric sclerae ENMT: external ear and nose normal, oropharynx normal Respiratory: normal respiratory effort, lungs clear to auscultation normal respiratory effort; no respiratory distress Auscultation: + diminished lung sounds (Poor inspiratory effort) Cardiovascular: Rate/Rhythm: regular rate and regular rhythm Vessels: normal peripheral pulses Extremities: no edema Gastrointestinal (Abdomen): normal bowel sounds, soft, nontender, Inspection/Auscultation: normal bowel sounds Percussion/Palpation: abdomen soft; abdomen nontender Musculoskeletal: no cyanosis or clubbing, extremities motor strength 5/5 Extremities: + foot abnormality ( Great Toe wound , bandage present ) Skin: no rashes, warm and dry Neurologic: PERRL, EOMI, accommodation nl, no face palsy, no dysarthria Psychiatric: Orientation: alert; + not oriented to person, + not oriented to place and + not oriented to time Results & Data Vital Signs (Past 12 Hours) Vital Signs Temp Pulse Resp BP Pulse Ox 02/14/19 07:42 36.5 C 74 16 121/70 91 Laboratory Results 02/14/19 02/13/19 02/13/19 Range/Units 08:34 20:39 17:06 POC Glucose 75 116 H 163 H (70-99) 02/13/19 Range/Units 12:01 POC Glucose 185 H (70-99) Medications Administered Current Inpatient Medications Acetaminophen (Tylenol) 650 mg PO Q4H PRN PRN Reason: pain/fever Stop: 03/02/19 16:07 Last Admin: 02/04/19 08:14 Dose: 650 mg Documented by: Aspirin (Ecotrin Ectab) 81 mg PO QAM [facility] Stop: 03/03/19 08:59 Last Admin: 02/14/19 08:56 Dose: 81 mg Documented by: Carvedilol (Coreg) 12.5 mg PO BID@0800,1700 [facility] Stop: 03/02/19 16:59 Last Admin: 02/14/19 08:53 Dose: 12.5 mg Documented by: Ciprofloxacin (Cipro) 250 mg PO Q12 [facility]; Protocol Stop: 03/18/19 20:59 Last Admin: 02/14/19 08:53 Dose: 250 mg Documented by: Dextrose (Dextrose 50%) 25 - 50 ml IV UD PRN; Protocol PRN Reason: Hypoglycemia Protocol Stop: 03/02/19 16:07 Docusate Sodium (Colace) 100 mg PO BID [facility] Stop: 03/02/19 20:59 Last Admin: 02/14/19 08:56 Dose: 100 mg Documented by: Enoxaparin Sodium (Lovenox) 40 mg SQ Q24H [facility] Stop: 03/02/19 16:59 Last Admin: 02/13/19 17:30 Dose: 40 mg Documented by: Gabapentin (Neurontin) 100 mg PO BID@0800,1700 [facility] Stop: 03/02/19 16:59 Last Admin: 02/14/19 08:54 Dose: 100 mg Documented by: Glucagon (Glucagen) 1 mg SQ UD PRN; Protocol PRN Reason: Hypoglycemia Protocol Stop: 03/02/19 16:07 Glucose (Glucose 40%) 15 - 30 gm PO UD PRN; Protocol PRN Reason: Hypoglycemia Protocol Stop: 03/02/19 16:07 Glucose (Dex4 Glucose) 4 - 8 tabs PO UD PRN; Protocol PRN Reason: Hypoglycemia Protocol Stop: 03/02/19 16:07 Daptomycin 300 mg/ Syringe 6 mls @ 5 mls/min IV DAILY@0900 [facility]; Protocol Stop: 03/19/19 08:59 Last Admin: 02/14/19 09:01 Dose: 5 mls/min Documented by: Insulin Aspart (Novolog Flexpen) 0 units SC ACHS [facility] Stop: 03/02/19 16:59 Last Admin: 02/14/19 08:51 Dose: 3 units Documented by: Insulin Detemir (Levemir Flextouch) 0 units SC DAILY [facility]; Protocol Stop: 03/11/19 08:59 Last Admin: 02/14/19 08:58 Dose: 15 units Documented by: Loratadine (Claritin) 10 mg PO QAM [facility] Stop: 03/03/19 08:59 Last Admin: 02/14/19 08:57 Dose: 10 mg Documented by: Losartan Potassium (Cozaar) 25 mg PO QAM [facility] Stop: 03/03/19 08:59 Last Admin: 02/12/19 08:24 Dose: 25 mg Documented by: Miscellaneous (Carbohydrates For Hypoglycemia) 15 - 30 gm PO UD PRN PRN Reason: Hypoglycemia Treatment Stop: 03/02/19 16:07 Miscellaneous Information (Consult Glycemic Management Pharmacy) 1 ea N/A UD PRN PRN Reason: Consult Stop: 03/05/19 16:49 Miscellaneous Information (Consult) 1 ea N/A UD PRN PRN Reason: Consult Stop: 03/06/19 15:44 Multivitamins (Multivitamin Tab) 1 tab PO [facility]; Protocol Stop: 03/03/19 08:59 Last Admin: 02/14/19 08:56 Dose: 1 tab Documented by: Polyethylene Glycol (Miralax Powder Packet) 17 gm PO BID [facility] Stop: 03/14/19 20:59 Last Admin: 02/14/19 08:58 Dose: 17 gm Documented by: Prednisone (Prednisone) 5 mg PO [facility] Stop: 03/03/19 08:59 Last Admin: 02/14/19 08:57 Dose: 5 mg Documented by: Quetiapine Fumarate (Seroquel) 50 mg PO [facility] Stop: 03/03/19 08:59 Last Admin: 02/14/19 08:55 Dose: 50 mg Documented by: Quetiapine Fumarate (Seroquel) 75 mg PO [facility] Stop: 03/02/19 20:59 Last Admin: 02/13/19 20:31 Dose: 75 mg Documented by: Ranitidine HCl (Zantac) 150 mg PO BID@0800,1700 [facility] Stop: 03/02/19 16:59 Last Admin: 02/14/19 08:53 Dose: 150 mg Documented by: Senna/Docusate Sodium (Senokot S) 1 tab PO [facility] Stop: 03/08/19 04:59 Last Admin: 02/14/19 08:54 Dose: 1 tab Documented by: Tolterodine Tartrate (Detrol) 1 mg PO [facility] Stop: 03/02/19 20:59 Last Admin: 02/13/19 20:32 Dose: 1 mg Documented by: Vitamin D (Vitamin D3) 400 units PO [facility] Stop: 03/03/19 08:59 Last Admin: 02/14/19 08:54 Dose: 400 units Documented by: (1) Osteomyelitis Osteomyelitis type: unspecified type Osteomyelitis location: foot Laterality: right Qualified Code(s): M86.9 - Osteomyelitis, unspecified
--- NOTE | 2019-02-14 13:23 | Pharmacy Report ---
Pharmacy Glycemic Short Note 2 - Date of Service February 14, 2019 - Glycemic Short BSG Results (Last 24 hours): 02/13/19 02/13/19 02/13/19 12:01 17:06 20:39 POC Glucose 185 H 163 H 116 H 02/14/19 08:34 POC Glucose 75 OUTPATIENT ANTIDIABETIC REGIMEN: * Insulin detemir (Levemir) 20 units SQ HS * NovoLog 7 units SQ TIDM * A1c = 8.4 % 01/22/19 ASSESSMENT: * BSGs ranged 75-172 mg/dL over the last 24 hours. * AM fasting BSG below goal range - will decrease Levemir * PO intake significantly increased yesterday and post-prandial BSG's in goal range. Will continue current Novolog parameters. PLAN FOR INPATIENT GLYCEMIC CONTROL: * Basal insulin: Levemir SC daily based on BSG * 10 units for BSG less than 90 mg/dL * 15 units for BSG 90-120 mg/dL * 20 units for BSG greater than 120 mg/dL * Bolus insulin * NovoLog per scale ACHS or Q6hrs while NPO * Goal Range: Low 110 mg/dL - High 140 mg/dL * Correction Factor: 20 mg/dL/unit * Nutritional / Prandial insulin per carb ratio of 1 unit per 6 grams CHO consumed
[2019-02-14] MEDS: ENOXAPARIN INJ 40 MG/0.4 ML SYR SQ SCH (18:09)
[2019-02-14] MEDS: TOLTERODINE TARTRATE 1 MG TAB PO SCH (20:17)
[2019-02-15 06:03] LABS: Hemoglobin 9.9 g/dL (12.0-16.0); Mean Corpuscular Hemoglobin 27.8 pg (25-34); Mean Corpuscular Hgb Conc 31.9 g/dL (32-36); Mean Corpuscular Volume 87.1 fL (80-100); Mean Platelet Volume 9.5 fL (7.4-10.4); Platelet Count 340 K/uL (130-400); RDW Coefficient of Variation 18.4 % (11.5-14.5); RDW Standard Deviation 59.2 fL (36.4-46.3); Red Blood Count 3.56 M/uL (4.2-5.4); White Blood Count 8.51 K/uL (4.8-10.8)
[2019-02-15 06:38] LABS: BUN Creatinine Ratio 19.1 (10-20); Calcium 8.9 mg/dl (8.5-10.1); Creatinine Clr Calc Pharmacy 39.3 ml/min; Est GFR (African American) 75.5; Est GFR (Non-African American) 65.2; Potassium 3.7 mmol/L (3.5-5.1)
[2019-02-15] MEDS: DAPTOmycin 300 MG in SYRINGE 0 ML IV SCH (07:58)
[2019-02-15] MEDS: carvediloL 12.5 MG TAB PO SCH ×2 (07:58→17:42)
[2019-02-15] MEDS: CHOLECALCIFEROL (VITAMIN D) 400 UNITS TABLET PO SCH (07:59)
[2019-02-15] MEDS: predniSONE 5 MG TAB PO SCH (08:00)
[2019-02-15] MEDS: MULTIVITAMIN TAB PO SCH (08:00)
[2019-02-15] MEDS: QUETIAPINE FUMARATE 25 MG TABLET PO SCH ×2 (08:00→20:56)
[2019-02-15] MEDS: DOCUSATE SODIUM 100 MG CAP PO SCH ×2 (08:00→20:56)
[2019-02-15] MEDS: DOCUSATE SODIUM/SENNA 50/8.6MG TAB PO SCH (08:01)
[2019-02-15] MEDS: LORATADINE 10 MG TAB PO SCH (08:01)
[2019-02-15] MEDS: GABAPENTIN 100 MG CAP PO SCH ×2 (08:01→17:42)
[2019-02-15] MEDS: ASPIRIN 81 MG ECTAB PO SCH (08:01)
[2019-02-15] MEDS: CIPROFLOXACIN 250 MG TAB PO SCH ×2 (08:01→20:57)
[2019-02-15] MEDS: POLYETHYLENE (MIRALAX) 17 GM PACK PO SCH ×2 (08:02→20:57)
[2019-02-15] MEDS: INSULIN DETEMIR FLEXPEN/FLEX TOUCH 100 UNITS/ML 3ML SC SCH (09:45)
[2019-02-15] MEDS: INSULIN ASPART 100 UNITS/ML 3 ML PEN SC SCH ×4 (09:46→21:41)
--- NOTE | 2019-02-15 09:52 | Infectious Disease Progress Nt ---
Date of Service February 15, 2019 Assessment & Plan (1) Osteomyelitis of toe of right foot: Patient with osteomyelitis of the toe, undergoing medical management because of inability to proceed with surgery. Unable to continue treatment after discharge with daptomycin because of expense. Long discussion with pharmacy about available options, will try to arrange for IV dalbavancin every 2 weeks for 3 doses which would allow patient not to have indwelling IV catheter. No change so far in QT interval on ciprofloxacin, have ordered repeat EKG for today. We will continue to follow. (2) MRSA (methicillin resistant Staphylococcus aureus) infection: (3) Serratia infection: Subjective Patient seen in follow-up for osteomyelitis of the toe. Appears comfortable, offers no new complaints. Continues to tolerate antibiotics without apparent difficulty. EKG 02/12 shows no change in QT interval. Remains afebrile. senior living declining daptomycin because of its expense. Review of Systems Review of Systems: Unobtainable due to cognitive status Physical Exam Constitutional: WD/WN, vitals as above comfortable; no acute distress Eyes: PERRL, conjunctivae normal, anicteric sclerae ENMT: external ear and nose normal, oropharynx normal Neck: trachea midline, no thyromegaly neck nontender Respiratory: normal respiratory effort, lungs clear to auscultation normal percussion; does not use accessory muscles Cardiovascular: Rate/Rhythm: regular rate and regular rhythm Heart Sounds: normal S1 and normal S2; no gallop, no murmur and no cardiac rub Vessels: normal peripheral pulses; no JVD Gastrointestinal (Abdomen): normal bowel sounds, soft, nontender, no hepatosplenomegaly Musculoskeletal: no cyanosis or clubbing, extremities motor strength 5/5 Spine: thoracic spine normal to inspection and lumbar spine normal to inspection; no cervical spinal tenderness Skin: no rashes, warm and dry normal turgor and + wound (Toes appear unchanged); no lesions Neurologic: patellar DTR's 2+ bilat, sensation intact no focal motor d eficits Psychiatric: A+Ox3, euthymic affect Orientation: cooperative Lymphatic: no cervical or axillary lymphadenopathy no inguinal lymphadenopathy Results & Data Vital Signs (Past 12 Hours) Vital Signs Temp Pulse Resp BP Pulse Ox 02/15/19 06:52 36.5 C 74 18 129/73 97 02/14/19 23:28 36.5 C 65 18 109/60 100 Laboratory Results Short CBC 02/15/19 Range/Units 05:32 WBC 8.51 (4.8-10.8) K/uL Hgb 9.9 L (12.0-16.0) g/dL Hct 31.0 L (37-47) % Plt Count 340 (130-400) K/uL BMP 02/15/19 05:32 Sodium 137 Potassium 3.7 Chloride 101 Carbon Dioxide 29 BUN 16 Creatinine 0.86 Glucose 194 H Calcium 8.9 Diagnostic Findings Microbiology 02/05/19 18:20 Urine,Indwelling Cath Urine Culture - Final Yeast not Katie albicans PG Care Time/CCT Total # of Minutes Spent Total Time Spent with Patient: Total time spent is greater than 50% in coordination of care (as documented) at patient's floor/unit and/or counseling patient:
--- NOTE | 2019-02-15 14:07 | Hospitalist Progress Note ---
Date of Service February 15, 2019 Assessment & Plan (1) Osteomyelitis: Nonhealing bilateral diabetic toe infection During recent admission, x-ray showed osteomyelitis the right great toe; no signs of osteomyelitis on x-ray of left great toe; unable to obtain MRI due to pacemaker Had been on doxycycline per wound care center; patient was evaluated by ID during recent admission who advised to continue doxycycline; patient completed course on 01/26 Wound culture from 01/16 grew MRSA and Serratia Per daughter, patient has been evaluated by orthopedics and vascular surgery as an outpatient for possible amputation however given her underlying severe PAD/advanced age: High risk for non-healing surgical wound Family agreeable for conservative treatment with IV antibiotic CT scans of bilateral great toes showing signs of osteomyelitis Consulted infectious disease: Recommends patient should continue with IV daptomycin and p.o. ciprofloxacin for total 6 weeks therapy / now considering other options as pt has difficulty w/ placement d/t daptomycin cost Oral ciprofloxacin resumed, monitor QTC; EKG shows Qtc remains in ~500 , no worsening noted Unable to have a PICC line/midline placed secondary to severe peripheral vascular disease IV team able to put a ultrasound-guided peripheral line, which can be utilized for IV daptomycin treatment for next 4 weeks( pt received 2 weeks of IV abx therapy already Family updated, Talk with patient's daughter Katey Leonardo ( POA ) : Phone number [phone] Appreciative of the effort from the IV team wants her mother to complete IV antibiotic as recommended by ID Dr Curry Difficulty w/ placement Per Dr. Jeong - received call form Case management - acute rehab to [facility] [place] Peer to Peer review Done with [facility] director of strategic communications will not qualify for Acute rehab -without any Physical therapy needs ( just for IV Abx ) But agreed to authorize Skilled rehab -and cover the cost for IV Daptomycin for 4 weeks CM notified referral made to [facility] pt can be transferred to SNF when bed available with coverage for 4 weeks of IV ABx pt will need Weekly Lab draw: CK level , Creatinine level and EKG ( to assess Qtc level while on PO Cipro) (2) Diabetes mellitus, type 2: Patient presented from [facility] with hypoglycemia Recent admission to [facility] 01/21 through 01/24 for hypoglycemia and management of right great toe osteomyelitis OUTPATIENT ANTIDIABETIC REGIMEN: Insulin detemir (Levemir) 20 units SQ HS NovoLog 7 units SQ TIDM A1c = 8.4 % 01/22/19 Developed Hypoglycemia in the 's Basal insulin dose reduced to 12 units at bedtime started on Very conservative sliding scale to prevent hypoglycemia pt been having intermittently Hyperglycemic episodes evening BSG > 300 Appreciate pharmacy recommendation to adjust/reduce insulin regimen at present in patient Insulin regimen /Per pharmacy Basal insulin : Levemir 20 units SC daily NovoLog per scale Goal Range: Low 100 mg/dL - High 140 mg/dL Correction Factor: 25 mg/dL/unit carb ratio of 1 unit per 5 grams CHO consumed cont to monitor BSG AC and HS (3) Ischemic cardiomyopathy: stable (4) ICD (implantable cardioverter-defibrillator) in place: Echo 09/2018 EF 30 to 35% remains euvolemic Continue diuretics and aspirin Continue Coreg with holding parameters PROLONGED QTC Continue p.o. ciprofloxacin with daily EKG monitoring (5) PAD (peripheral artery disease): Severe peripheral vascular disease leading to nonhealing infected diabetic toe wound/leading to osteomyelitis Ultrasound-guided peripheral line placed, pt already had approx 2 weeks of IV abx in hospital Plan for 4 more weeks of IV Daptomycin has USG guided line placed , good for the duration of abx (6) PMR (polymyalgia rheumatica): Continue chronic prednisone (7) Dementia: Very pleasantly demented, Very cooperative, comfortable on current setting No agitation noted (8) Pacemaker: stable (9) DVT prophylaxis: SQ Lovenox Disposition Plan is to discharge patient to skilled rehab to continue 4 more weeks of IV antibiotics for toe osteomyelitis Subjective No acute events overnight. Patient denies any fevers, chills, chest pain, shortness of breath, abdominal pain, nausea or vomiting. Patient is currently lying in bed comfortable. Review of Systems Review of Systems: All systems reviewed & are unremarkable except as noted in HPI & below Constitutional: no fever and no chills Respiratory: no cough and no dyspnea Cardiovascular: no chest pain, no palpitations and no edema Gastrointestinal: no abdominal pain, no nausea and no vomiting Physical Exam Physical Exam: Constitutional: Elderly female laying in bed in no acute distress WD/WN Eyes: PERRL, conjunctivae normal, anicteric sclerae ENMT: external ear and nose normal, oropharynx normal Respiratory: normal respiratory effort, lungs clear to auscultation normal respiratory effort; no respiratory distress Auscultation: + diminished lung sounds (Poor inspiratory effort) Cardiovascular: Rate/Rhythm: regular rate and regular rhythm Vessels: nor mal peripheral pulses Extremities: no edema Gastrointestinal (Abdomen): normal bowel sounds, soft, nontender, Inspection/Auscultation: normal bowel sounds Percussion/Palpation: abdomen soft; abdomen nontender Musculoskeletal: no cyanosis or clubbing, extremities motor strength 5/5 Extremities: + foot abnormality ( Great Toe wound , bandage present ) Skin: no rashes, warm and dry Neurologic: PERRL, EOMI, accommodation nl, no face palsy, no dysarthria Psychiatric: Orientation: alert; + not oriented to person, + not oriented to place and + not oriented to time Results & Data Vital Signs (Past 12 Hours) Vital Signs Temp Pulse Resp BP Pulse Ox 02/15/19 06:52 36.5 C 74 18 129/73 97 Laboratory Results 02/15/19 02/15/19 02/15/19 Range/Units 08:10 05:32 05:32 WBC 8.51 (4.8-10.8) K/uL RBC 3.56 L (4.2-5.4) M/uL Hgb 9.9 L (12.0-16.0) g/dL Hct 31.0 L (37-47) % MCV 87.1 (80-100) fL MCH 27.8 (25-34) pg MCHC 31.9 L (32-36) g/dL RDW Std Deviation 59.2 H (36.4-46.3) fL RDW Coeff of Fercho 18.4 H (11.5-14.5) % Plt Count 340 (130-400) K/uL MPV 9.5 (7.4-10.4) fL Sodium 137 (136-145) mmol/L Potassium 3.7 (3.5-5.1) mmol/L Chloride 101 (98-107) mmol/L Carbon Dioxide 29 (21-32) mmol/L Anion Gap 7.0 (3-11) BUN 16 (7-18) mg/dl Creatinine 0.86 (0.6-1.2) mg/dl Est Cr Clr Drug Dosing 39.3 ml/min Est GFR ( Amer) 75.5 Est GFR (Non-Af Amer) 65.2 BUN/Creatinine Ratio 19.1 (10-20) Glucose 194 H (70-99) mg/dl POC Glucose 207 H (70-99) Calcium 8.9 (8.5-10.1) mg/dl 02/14/19 02/14/19 02/14/19 Range/Units 20:56 17:02 12:12 WBC (4.8-10.8) K/uL RBC (4.2-5.4) M/uL Hgb (12.0-16.0) g/dL Hct (37-47) % MCV (80-100) fL MCH (25-34) pg MCHC (32-36) g/dL RDW Std Deviation (36.4-46.3) fL RDW Coeff of Fercho (11.5-14.5) % Plt Count (130-400) K/uL MPV (7.4-10.4) fL Sodium (136-145) mmol/L Potassium (3.5-5.1) mmol/L Chloride (98-107) mmol/L Carbon Dioxide (21-32) mmol/L Anion Gap (3-11) BUN (7-18) mg/dl Creatinine (0.6-1.2) mg/dl Est Cr Clr Drug Dosing ml/min Est GFR ( Amer) Est GFR (Non-Af Amer) BUN/Creatinine Ratio (10-20) Glucose (70-99) mg/dl POC Glucose 147 H 139 H 172 H (70-99) Calcium (8.5-10.1) mg/dl Medications Administered Current Inpatient Medications Acetaminophen (Tylenol) 650 mg PO Q4H PRN PRN Reason: pain/fever Stop: 03/02/19 16:07 Last Admin: 02/04/19 08:14 Dose: 650 mg Documented by: Aspirin (Ecotrin Ectab) 81 mg PO QAM [facility] Stop: 03/03/19 08:59 Last Admin: 02/15/19 08:01 Dose: 81 mg Documented by: Carvedilol (Coreg) 12.5 mg PO BID@0800,1700 [facility] Stop: 03/02/19 16:59 Last Admin: 02/15/19 07:58 Dose: 12.5 mg Documented by: Ciprofloxacin (Cipro) 250 mg PO Q12 [facility]; Protocol Stop: 03/18/19 20:59 Last Admin: 02/15/19 08:01 Dose: 250 mg Documented by: Dextrose (Dextrose 50%) 25 - 50 ml IV UD PRN; Protocol PRN Reason: Hypoglycemia Protocol Stop: 03/02/19 16:07 Docusate Sodium (Colace) 100 mg PO BID [facility] Stop: 03/02/19 20:59 Last Admin: 02/15/19 08:00 Dose: 100 mg Documented by: Enoxaparin Sodium (Lovenox) 40 mg SQ Q24H [facility] Stop: 03/02/19 16:59 Last Admin: 02/14/19 18:09 Dose: 40 mg Documented by: Gabapentin (Neurontin) 100 mg PO BID@0800,1700 [facility] Stop: 03/02/19 16:59 Last Admin: 02/15/19 08:01 Dose: 100 mg Documented by: Glucagon (Glucagen) 1 mg SQ UD PRN; Protocol PRN Reason: Hypoglycemia Protocol Stop: 03/02/19 16:07 Glucose (Glucose 40%) 15 - 30 gm PO UD PRN; Protocol PRN Reason: Hypoglycemia Protocol Stop: 03/02/19 16:07 Glucose (Dex4 Glucose) 4 - 8 tabs PO UD PRN; Protocol PRN Reason: Hypoglycemia Protocol Stop: 03/02/19 16:07 Daptomycin 300 mg/ Syringe 6 mls @ 5 mls/min IV DAILY@0900 [facility]; Protocol Stop: 03/19/19 08:59 Last Admin: 02/15/19 07:58 Dose: 5 mls/min Documented by: Insulin Aspart (Novolog Flexpen) 0 units SC ACHS [facility] Stop: 03/02/19 16:59 Last Admin: 02/15/19 12:56 Dose: 8 units Documented by: Insulin Detemir (Levemir Flextouch) 0 units SC DAILY [facility]; Protocol Stop: 03/11/19 08:59 Last Admin: 02/15/19 09:45 Dose: 20 units Documented by: Loratadine (Claritin) 10 mg PO QAM [facility] Stop: 03/03/19 08:59 Last Admin: 02/15/19 08:01 Dose: 10 mg Documented by: Losartan Potassium (Cozaar) 25 mg PO QAM [facility] Stop: 03/03/19 08:59 Last Admin: 02/12/19 08:24 Dose: 25 mg Documented by: Miscellaneous (Carbohydrates For Hypoglycemia) 15 - 30 gm PO UD PRN PRN Reason: Hypoglycemia Treatment Stop: 03/02/19 16:07 Miscellaneous Information (Consult Glycemic Management Pharmacy) 1 ea N/A UD PRN PRN Reason: Consult Stop: 03/05/19 16:49 Miscellaneous Information (Consult) 1 ea N/A UD PRN PRN Reason: Consult Stop: 03/06/19 15:44 [facility]ivit[facility] ([facility]itamin Tab) [facility] [place] Protocol Stop: 03/03/19 08:59 Last Admin: 02/15/19 08:00 Dose: 1 tab Documented by: Polyethylene Glycol (Miralax Powder Packet) 17 gm PO BID [facility] Stop: 03/14/19 20:59 Last Admin: 02/15/19 08:02 Dose: 17 gm Documented by: Prednisone (Prednisone) [facility] [place] Stop: 03/03/19 08:59 Last Admin: 02/15/19 08:00 Dose: 5 mg Documented by: Quetiapine Fumarate (Seroquel) 50 [facility] [place] Stop: 03/03/19 08:59 Last Admin: 02/15/19 08:00 Dose: 50 mg Documented by: Quetiapine Fumarate (Seroquel) 75 mg PO [facility] Stop: 03/02/19 20:59 Last Admin: 02/14/19 20:18 Dose: 75 mg Documented by: Ranitidine HCl (Zantac) 150 mg PO BID@0800,1700 [facility] Stop: 03/02/19 16:59 Last Admin: 02/15/19 08:00 Dose: 150 mg Documented by: Senna/Docusate Sodium (Senokot S) 1 [facility] [place] Stop: 03/08/19 04:59 Last Admin: 02/15/19 08:01 Dose: 1 tab Documented by: Tolterodine Tartrate (Detrol) 1 mg PO [facility] Stop: 03/02/19 20:59 Last Admin: 02/14/19 20:17 Dose: 1 mg Documented by: Vitamin D (Vitamin D3) 400 units PO QAM [facility] Stop: 03/03/19 08:59 Last Admin: 02/15/19 07:59 Dose: 400 units Documented by: (1) Osteomyelitis Osteomyelitis type: unspecified type Osteomyelitis location: foot Laterality: right Qualified Code(s): M86.9 - Osteomyelitis, unspecified
[2019-02-15] MEDS: ENOXAPARIN INJ 40 MG/0.4 ML SYR SQ SCH (17:42)
[2019-02-15] MEDS: TOLTERODINE TARTRATE 1 MG TAB PO SCH (20:57)
[2019-02-16] MEDS: carvediloL 12.5 MG TAB PO SCH ×2 (08:28→16:36)
[2019-02-16] MEDS: POLYETHYLENE (MIRALAX) 17 GM PACK PO SCH ×2 (08:29→21:04)
[2019-02-16] MEDS: CHOLECALCIFEROL (VITAMIN D) 400 UNITS TABLET PO SCH (08:30)
[2019-02-16] MEDS: DOCUSATE SODIUM/SENNA 50/8.6MG TAB PO SCH (08:30)
[2019-02-16] MEDS: GABAPENTIN 100 MG CAP PO SCH ×2 (08:31→16:35)
[2019-02-16] MEDS: LORATADINE 10 MG TAB PO SCH (08:31)
[2019-02-16] MEDS: ASPIRIN 81 MG ECTAB PO SCH (08:31)
[2019-02-16] MEDS: CIPROFLOXACIN 250 MG TAB PO SCH ×2 (08:31→20:48)
[2019-02-16] MEDS: QUETIAPINE FUMARATE 25 MG TABLET PO SCH ×2 (08:32→20:50)
[2019-02-16] MEDS: DOCUSATE SODIUM 100 MG CAP PO SCH ×2 (08:33→20:48)
[2019-02-16] MEDS: MULTIVITAMIN TAB PO SCH (08:33)
[2019-02-16] MEDS: predniSONE 5 MG TAB PO SCH (08:33)
[2019-02-16] MEDS: INSULIN DETEMIR FLEXPEN/FLEX TOUCH 100 UNITS/ML 3ML SC SCH (08:34)
[2019-02-16] MEDS: INSULIN ASPART 100 UNITS/ML 3 ML PEN SC SCH ×4 (08:43→21:00)
[2019-02-16] MEDS: DAPTOmycin 300 MG in SYRINGE 0 ML IV SCH (08:49)
[2019-02-16 09:12] LABS: Hematocrit (blood only) 33.2 % (37-47); Hemoglobin 10.5 g/dL (12.0-16.0); Mean Corpuscular Hgb Conc 31.6 g/dL (32-36); Mean Corpuscular Volume 88.5 fL (80-100); Mean Platelet Volume 9.2 fL (7.4-10.4); Platelet Count 330 K/uL (130-400); RDW Coefficient of Variation 18.7 % (11.5-14.5); RDW Standard Deviation 61.6 fL (36.4-46.3); Red Blood Count 3.75 M/uL (4.2-5.4)
--- NOTE | 2019-02-16 09:23 | Pharmacy Report ---
Pharmacy Glycemic Short Note 2 - Date of Service February 16, 2019 - Glycemic Short BSG Results (Last 24 hours): 02/15/19 02/15/19 02/15/19 08:10 12:06 12:09 POC Glucose 207 H 307 H* 286 H 02/15/19 02/15/19 02/15/19 14:33 17:07 20:56 POC Glucose 224 H 169 H 120 H OUTPATIENT ANTIDIABETIC REGIMEN: * Insulin detemir (Levemir) 20 units SQ HS * NovoLog 7 units SQ TIDM * A1c = 8.4 % 01/22/19 ASSESSMENT: * BSGs at goal over the last 48 hours, with exception of a random blood sugar yesterday of 307mg/dl - completely unexplainable, did tighten CR at that time, no further changes in CF and CR. * AM fasting BSG of 114mg/dl at goal range - continue Levemir on scale. * Patient remains inpatient for IV antibiotics for osteomyelitis of toe growing MRSA and serratia. Patient to be discharged on IV dalbavancin every 2 weeks for 3 doses which would allow patient not to have indwelling IV catheter. No change so far in QT interval on ciprofloxacin. PLAN FOR INPATIENT GLYCEMIC CONTROL: * Basal insulin: Levemir SC daily based on BSG * 10 units for BSG less than 90 mg/dL * 15 units for BSG 90-120 mg/dL * 20 units for BSG greater than 120 mg/dL * Bolus insulin * NovoLog per scale ACHS or Q6hrs while NPO * Goal Range: Low 110 mg/dL - High 140 mg/dL * Correction Factor: 20 mg/dL/unit * Nutritional / Prandial insulin per carb ratio of 1 unit per 5 grams CHO consumed DISCHARGE RECOMMENDATIONS: * A1c 8.4% is above goal of < 8% for patient, recommend following up with outpatient provider for better glycemic control with insulin dosing, which will lead to better infection control.
[2019-02-16 09:40] LABS: BUN Creatinine Ratio 16.8 (10-20); Calcium 9.3 mg/dl (8.5-10.1); Est GFR (African American) 56.7; Est GFR (Non-African American) 48.9; Magnesium 2.2 mg/dl (1.8-2.4); Potassium 3.8 mmol/L (3.5-5.1)
--- NOTE | 2019-02-16 12:10 | Hospitalist Progress Note ---
Date of Service February 16, 2019 Assessment & Plan (1) Osteomyelitis: Nonhealing bilateral diabetic toe infection During recent admission, x-ray showed osteomyelitis the right great toe; no signs of osteomyelitis on x-ray of left great toe; unable to obtain MRI due to pacemaker Had been on doxycycline per wound care center; patient was evaluated by ID during recent admission who advised to continue doxycycline; patient completed course on 01/26 Wound culture from 01/16 grew MRSA and Serratia Per daughter, patient has been evaluated by orthopedics and vascular surgery as an outpatient for possible amputation however given her underlying severe PAD/advanced age: High risk for non-healing surgical wound Family agreeable for conservative treatment with IV antibiotic CT scans of bilateral great toes showing signs of osteomyelitis Consulted infectious disease: Recommends patient should continue with IV daptomycin and p.o. ciprofloxacin for total 6 weeks therapy / now considering other options as pt has difficulty w/ placement d/t daptomycin cost Oral ciprofloxacin resumed, monitor QTC; EKG shows Qtc remains in ~500 , no worsening noted Unable to have a PICC line/midline placed secondary to severe peripheral vascular disease IV team able to put a ultrasound-guided peripheral line, which can be utilized for IV daptomycin treatment for next 4 weeks( pt received 2 weeks of IV abx therapy already Family updated, Patient's daughter Katey Leonardo ( POA ) : Phone number [phone] wants her mother to complete IV antibiotic as recommended by ID Dr Curry Difficulty w/ placement Per Dr. 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 Acute rehab -without any Physical therapy needs ( just for IV Abx ) But agreed to authorize Skilled rehab -and cover the cost for IV Daptomycin for 4 weeks CM notified referral made to [facility] pt can be transferred to SNF when bed available with coverage for 4 weeks of IV ABx pt will need Weekly Lab draw: CK level , Creatinine level and EKG ( to assess Qtc level while on PO Cipro) (2) Diabetes mellitus, type 2: Patient presented from [facility] with hypoglycemia Recent admission to [facility] 01/21 through 01/24 for hypoglycemia and management of right great toe osteomyelitis OUTPATIENT ANTIDIABETIC REGIMEN: Insulin detemir (Levemir) 20 units SQ HS NovoLog 7 units SQ TIDM A1c = 8.4 % 01/22/19 Developed Hypoglycemia in the ' Basal insulin dose reduced to 12 units at bedtime started on Very conservative sliding scale to prevent hypoglycemia pt been having intermittently Hyperglycemic episodes evening BSG > 300 Appreciate pharmacy recommendation to adjust/reduce insulin regimen at present in patient Insulin regimen /Per pharmacy Basal insulin : Levemir 20 units SC daily NovoLog per scale Goal Range: Low 100 mg/dL - High 140 mg/dL Correction Factor: 25 mg/dL/unit carb ratio of 1 unit per 5 grams CHO consumed cont to monitor BSG AC and HS (3) Ischemic cardiomyopathy: stable (4) ICD (implantable cardioverter-defibrillator) in place: Echo 09/2018 EF 30 to 35% remains euvolemic Continue diuretics and aspirin Continue Coreg with holding parameters PROLONGED QTC Continue p.o. ciprofloxacin with daily EKG monitoring (5) PAD (peripheral artery disease): Severe peripheral vascular disease leading to nonhealing infected diabetic toe wound/leading to osteomyelitis Ultrasound-guided peripheral line placed, pt already had approx 2 weeks of IV abx in hospital Plan for 4 more weeks of IV Daptomycin has USG guided line placed , good for the duration of abx (6) PMR (polymyalgia rheumatica): Continue chronic prednisone (7) Dementia: Very pleasantly demented, Very cooperative, comfortable on current setting No agitation noted (8) Pacemaker: stable (9) DVT prophylaxis: SQ Lovenox Disposition Plan is to discharge patient to skilled rehab to continue 4 more weeks of IV antibiotics for toe osteomyelitis Subjective No acute events overnight. Patient denies any fevers, chills, chest pain, shortness of breath, abdominal pain, nausea or vomiting. Patient is currently lying in bed comfortable. Review of Systems Review of Systems: All systems reviewed & are unremarkable except as noted in HPI & below Constitutional: no fever and no chills Respiratory: no cough and no dyspnea Cardiovascular: no chest pain and no palpitations Gastrointestinal: no abdominal pain, no nausea and no vomiting Physical Exam Physical Exam: Constitutional: Elderly female laying in bed in no acute distress WD/WN Eyes: PERRL, conjunctivae normal, anicteric sclerae ENMT: external ear and nose normal, oropharynx normal Respiratory: normal respiratory effort, lungs clear to auscultation normal respiratory effort; no respiratory distress Auscultation: + diminished lung sounds (Poor inspiratory effort) Cardiovascular: Rate/Rhythm: regular rate and regular rhythm Vessels: normal peripheral pulses Extremities: no edema Gastrointestinal (Abdomen): normal bowel sounds, soft, nontender, Inspection/Auscultation: normal bowel sounds Percussion/Palpation: abdomen soft; abdomen nontender Musculoskeletal: no cyanosis or clubbing, extremities motor strength 5/5 Extremities: + foot abnormality ( Great Toe wound , bandage present ) Skin: no rashes, warm and dry Neurologic: PERRL, EOMI, accommodation nl, no face palsy, no dysarthria Psychiatric: Orientation: alert; + not oriented to person, + not oriented to place and + not oriented to time Results & Data Vital Signs (Past 12 Hours) Vital Signs Temp Pulse Resp BP Pulse Ox 02/16/19 07:22 36.5 C 76 16 138/73 99 Laboratory Results 02/16/19 02/16/19 02/15/19 Range/Units 09:01 09:01 20:56 WBC 8.50 (4.8-10.8) K/uL RBC 3.75 L (4.2-5.4) M/uL Hgb 10.5 L (12.0-16.0) g/dL Hct 33.2 L (37-47) % MCV 88.5 (80-100) fL MCH 28.0 (25-34) pg MCHC 31.6 L (32-36) g/dL RDW Std Deviation 61.6 H (36.4-46.3) fL RDW Coeff of Fercho 18.7 H (11.5-14.5) % Plt Count 330 (130-400) K/uL MPV 9.2 (7.4-10.4) fL Sodium 134 L (136-145) mmol/L Potassium 3.8 (3.5-5.1) mmol/L Chloride 100 (98-107) mmol/L Carbon Dioxide 29 (21-32) mmol/L Anion Gap 6.0 (3-11) BUN 18 (7-18) mg/dl Creatinine 1.09 (0.6-1.2) mg/dl Est Cr Clr Drug Dosing 31.0 ml/min Est GFR ( Amer) 56.7 Est GFR (Non-Af Amer) 48.9 BUN/Creatinine Ratio 16.8 (10-20) Glucose 171 H (70-99) mg/dl POC Glucose 120 H (70-99) Calcium 9.3 (8.5-10.1) mg/dl Magnesium 2.2 (1.8-2.4) mg/dl Total Creatine Kinase 57 (26-192) U/L 02/15/19 02/15/19 02/15/19 Range/Units 17:07 14:33 12:09 WBC (4.8-10.8) K/uL RBC (4.2-5.4) M/uL Hgb (12.0-16.0) g/dL Hct (37-47) % MCV (80-100) fL MCH (25-34) pg MCHC (32-36) g/dL RDW Std Deviation (36.4-46.3) fL RDW Coeff of Fercho (11.5-14.5) % Plt Count (130-400) K/uL MPV (7.4-10.4) fL Sodium (136-145) mmol/L Potassium (3.5-5.1) mmol/L Chloride (98-107) mmol/L Carbon Dioxide (21-32) mmol/L Anion Gap (3-11) BUN (7-18) mg/dl Creatinine (0.6-1.2) mg/dl Est Cr Clr Drug Dosing ml/min Est GFR ( Amer) Est GFR (Non-Af Amer) BUN/Creatinine Ratio (10-20) Glucose (70-99) mg/dl POC Glucose 169 H 224 H 286 H (70-99) Calcium (8.5-10.1) mg/dl Magnesium (1.8-2.4) mg/dl Total Creatine Kinase (26-192) U/L 02/15/19 Range/Units 12:06 WBC (4.8-10.8) K/uL RBC (4.2-5.4) M/uL Hgb (12.0-16.0) g/dL Hct (37-47) % MCV (80-100) fL MCH (25-34) pg MCHC (32-36) g/dL RDW Std Deviation (36.4-46.3) fL RDW Coeff of Fercho (11.5-14.5) % Plt Count (130-400) K/uL MPV (7.4-10.4) fL Sodium (136-145) mmol/L Potassium (3.5-5.1) mmol/L Chloride (98-107) mmol/L Carbon Dioxide (21-32) mmol/L Anion Gap (3-11) BUN (7-18) mg/dl Creatinine (0.6-1.2) mg/dl Est Cr Clr Drug Dosing ml/min Est GFR ( Amer) Est GFR (Non-Af Amer) BUN/Creatinine Ratio (10-20) Glucose (70-99) mg/dl POC Glucose 307 H* (70-99) Calcium (8.5-10.1) mg/dl Magnesium (1.8-2.4) mg/dl Total Creatine Kinase (26-192) U/L Medications Administered Current Inpatient Medications Acetaminophen (Tylenol) 650 mg PO Q4H PRN PRN Reason: pain/fever Stop: 03/02/19 16:07 Last Admin: 02/04/19 08:14 Dose: 650 mg Documented by: Aspirin (Ecotrin Ectab) 81 mg PO QAM [facility] Stop: 03/03/19 08:59 Last Admin: 02/16/19 08:31 Dose: 81 mg Documented by: Carvedilol (Coreg) 12.5 mg PO BID@0800,1700 [facility] Stop: 03/02/19 16:59 Last Admin: 02/16/19 08:28 Dose: 12.5 mg Documented by: Ciprofloxacin (Cipro) 250 mg PO Q12 [facility]; Protocol Stop: 03/18/19 20:59 Last Admin: 02/16/19 08:31 Dose: 250 mg Documented by: Dextrose (Dextrose 50%) 25 - 50 ml IV UD PRN; Protocol PRN Reason: Hypoglycemia Protocol Stop: 03/02/19 16:07 Docusate Sodium (Colace) 100 mg PO BID [facility] Stop: 03/02/19 20:59 Last Admin: 02/16/19 08:33 Dose: 100 mg Documented by: Enoxaparin Sodium (Lovenox) 40 mg SQ Q24H [facility] Stop: 03/02/19 16:59 Last Admin: 02/15/19 17:42 Dose: 40 mg Documented by: Gabapentin (Neurontin) 100 mg PO BID@0800,1700 [facility] Stop: 03/02/19 16:59 Last Admin: 02/16/19 08:31 Dose: 100 mg Documented by: Glucagon (Glucagen) 1 mg SQ UD PRN; Protocol PRN Reason: Hypoglycemia Protocol Stop: 03/02/19 16:07 Glucose (Glucose 40%) 15 - 30 gm PO UD PRN; Protocol PRN Reason: Hypoglycemia Protocol Stop: 03/02/19 16:07 Glucose (Dex4 Glucose) 4 - 8 tabs PO UD PRN; Protocol PRN Reason: Hypoglycemia Protocol Stop: 03/02/19 16:07 Daptomycin 300 mg/ Syringe 6 mls @ 5 mls/min IV DAILY@0900 [facility]; Protocol Stop: 03/19/19 08:59 Last Admin: 02/16/19 08:49 Dose: 5 mls/min Documented by: Insulin Aspart (Novolog Flexpen) 0 units SC ACHS [facility] Stop: 03/02/19 16:59 Last Admin: 02/16/19 08:43 Dose: 6 units Documented by: Insulin Detemir (Levemir Flextouch) 0 units SC DAILY [facility]; Protocol Stop: 03/11/19 08:59 Last Admin: 02/16/19 08:34 Dose: 15 units Documented by: Loratadine (Claritin) 10 mg PO QAM [facility] Stop: 03/03/19 08:59 Last Admin: 02/16/19 08:31 Dose: 10 mg Documented by: Losartan Potassium (Cozaar) 25 mg PO QAM [facility] Stop: 03/03/19 08:59 Last Admin: 02/12/19 08:24 Dose: 25 mg Documented by: Miscellaneous (Carbohydrates For Hypoglycemia) 15 - 30 gm PO UD PRN PRN Reason: Hypoglycemia Treatment Stop: 03/02/19 16:07 Miscellaneous Information (Consult Glycemic Management Pharmacy) 1 ea N/A UD PRN PRN Reason: Consult Stop: 03/05/19 16:49 Miscellaneous Information (Consult) 1 ea N/A UD PRN PRN Reason: Consult Stop: 03/06/19 15:44 [facility]it[facility] Tab) [facility] [place] Protocol Stop: 03/03/19 08:59 Last Admin: 02/16/19 08:33 Dose: 1 tab Documented by: Polyethylene Glycol (Miralax Powder Packet) 17 gm PO BID [facility] Stop: 03/14/19 20:59 Last Admin: 02/16/19 08:29 Dose: Not Given Documented by: Prednisone (Prednisone) 5 mg PO [facility] Stop: 03/03/19 08:59 Last Admin: 02/16/19 08:33 Dose: 5 mg Documented by: Quetiapine Fumarate (Seroquel) 50 mg PO [facility] Stop: 03/03/19 08:59 Last Admin: 02/16/19 08:32 Dose: 50 mg Documented by: Quetiapine Fumarate (Seroquel) 75 mg PO [facility] Stop: 03/02/19 20:59 Last Admin: 02/15/19 20:56 Dose: 75 mg Documented by: Ranitidine HCl (Zantac) 150 mg PO BID@0800,1700 [facility] Stop: 03/02/19 16:59 Last Admin: 02/16/19 08:33 Dose: 150 mg Documented by: Senna/Docusate Sodium (Senokot S) 1 tab PO [facility] Stop: 03/08/19 04:59 Last Admin: 02/16/19 08:30 Dose: 1 tab Documented by: Tolterodine Tartrate (Detrol) 1 mg PO [facility] Stop: 03/02/19 20:59 Last Admin: 02/15/19 20:57 Dose: 1 mg Documented by: Vitamin D (Vitamin D3) 400 units PO [facility] Stop: 03/03/19 08:59 Last Admin: 02/16/19 08:30 Dose: 400 units Documented by: (1) Osteomyelitis Osteomyelitis type: unspecified type Osteomyelitis location: foot Lateralit y: right Qualified Code(s): M86.9 - Osteomyelitis, unspecified
--- NOTE | 2019-02-16 14:14 | Infectious Disease Progress Nt ---
Date of Service February 16, 2019 Assessment & Plan (1) Osteomyelitis of toe of right foot: Patient with osteomyelitis of the toe, undergoing medical management because of inability to proceed with surgery. Unable to continue treatment after discharge with daptomycin because of expense. Long discussion with pharmacy about available options, will try to arrange for IV dalbavancin every 2 weeks for 3 doses which would allow patient not to have indwelling IV catheter. No change so far in QT interval on ciprofloxacin. We will continue to follow. (2) MRSA (methicillin resistant Staphylococcus aureus) infection: (3) Serratia infection: Subjective Patient seen for osteomyelitis of the toes. No acute events overnight. Patient denies any fevers, chills, chest pain, shortness of breath, abdominal pain, nausea or vomiting. Patient is currently lying in bed comfortable. Follow-up EKG shows no significant increase in QT interval. Review of Systems Review of Systems: All systems reviewed & are unremarkable except as noted in HPI & below Physical Exam Constitutional: WD/WN, vitals as above comfortable; no acute distress Eyes: PERRL, conjunctivae normal, anicteric sclerae ENMT: external ear and nose normal, oropharynx normal Neck: trachea midline, no thyromegaly neck nontender Respiratory: normal respiratory effort, lungs clear to auscultation normal percussion; does not use accessory muscles Cardiovascular: Rate/Rhythm: regular rate and regular rhythm Heart Sounds: normal S1 and normal S2; no gallop, no murmur and no cardiac rub Vessels: normal peripheral pulses; no JVD Gastrointestinal (Abdomen): normal bowel sounds, soft, nontender, no hepatosplenomegaly Musculoskeletal: no cyanosis or clubbing, extremities motor strength 5/5 Spine: thoracic spine normal to inspection and lumbar spine normal to inspection; no cervical spinal tenderness Skin: no rashes, warm and dry normal turgor and + wound (Toes appear unchanged); no lesions Neurologic: patellar DTR's 2+ bilat, sensation intact no focal motor defi cits Psychiatric: A+Ox3, euthymic affect Orientation: cooperative Lymphatic: no cervical or axillary lymphadenopathy no inguinal lymphadenopathy Results & Data Vital Signs (Past 12 Hours) Vital Signs Temp Pulse Resp BP Pulse Ox 02/16/19 07:22 36.5 C 76 16 138/73 99 Laboratory Results Short CBC 02/16/19 Range/Units 09:01 WBC 8.50 (4.8-10.8) K/uL Hgb 10.5 L (12.0-16.0) g/dL Hct 33.2 L (37-47) % Plt Count 330 (130-400) K/uL BMP 02/16/19 09:01 Sodium 134 L Potassium 3.8 Chloride 100 Carbon Dioxide 29 BUN 18 Creatinine 1.09 Glucose 171 H Calcium 9.3 Cardiac Enzymes 02/16/19 Range/Units 09:01 Total Creatine Kinase 57 (26-192) U/L Diagnostic Findings Microbiology 02/05/19 18:20 Urine,Indwelling Cath Urine Culture - Final Yeast not Katie albicans PG Care Time/CCT Total # of Minutes Spent Total Time Spent with Patient: Total time spent is greater than 50% in coordination of care (as documented) at patient's floor/unit and/or counseling patient:
[2019-02-16] MEDS: ENOXAPARIN INJ 40 MG/0.4 ML SYR SQ SCH (16:36)
[2019-02-16] MEDS: TOLTERODINE TARTRATE 1 MG TAB PO SCH (20:49)
[2019-02-17] MEDS: INSULIN ASPART 100 UNITS/ML 3 ML PEN SC SCH ×5 (08:43→20:52)
[2019-02-17] MEDS: QUETIAPINE FUMARATE 25 MG TABLET PO SCH ×2 (08:44→20:43)
[2019-02-17] MEDS: predniSONE 5 MG TAB PO SCH (08:44)
[2019-02-17] MEDS: MULTIVITAMIN TAB PO SCH (08:44)
[2019-02-17] MEDS: DOCUSATE SODIUM 100 MG CAP PO SCH ×2 (08:44→20:47)
[2019-02-17] MEDS: carvediloL 12.5 MG TAB PO SCH ×2 (08:44→17:59)
[2019-02-17] MEDS: CHOLECALCIFEROL (VITAMIN D) 400 UNITS TABLET PO SCH (08:44)
[2019-02-17] MEDS: LORATADINE 10 MG TAB PO SCH (08:45)
[2019-02-17] MEDS: CIPROFLOXACIN 250 MG TAB PO SCH ×2 (08:45→20:45)
[2019-02-17] MEDS: GABAPENTIN 100 MG CAP PO SCH ×2 (08:45→17:58)
[2019-02-17] MEDS: ASPIRIN 81 MG ECTAB PO SCH (08:45)
[2019-02-17] MEDS: DOCUSATE SODIUM/SENNA 50/8.6MG TAB PO SCH (08:46)
[2019-02-17] MEDS: INSULIN DETEMIR FLEXPEN/FLEX TOUCH 100 UNITS/ML 3ML SC SCH ×2 (08:46→20:53)
[2019-02-17] MEDS: POLYETHYLENE (MIRALAX) 17 GM PACK PO SCH ×2 (08:46→20:47)
--- NOTE | 2019-02-17 09:43 | Pharmacy Report ---
Glycemic Control Progress Note - Date of Service February 17, 2019 - Scope Glycemic Pharmacist consulted for glycemic control to write orders per [facility] inpatient glycemic control protocol. - Objective Accuchecks BSG(last 24 hours):: 02/16/19 02/16/19 02/16/19 08:23 09:01 12:20 Glucose 171 H POC Glucose 114 H 213 H 02/16/19 02/16/19 02/16/19 17:07 20:32 20:58 Glucose POC Glucose 192 H 204 H 235 H 02/17/19 08:11 Glucose POC Glucose 150 H - Recent Pertinent Medications The patient is currently receiving: * Basal insulin: Levemir 15 units every 24 hours * Correctional Insulin: Novolog Correction per scale ACHS Goal Range: Low 110 mg/dL - High 140 mg/dL Correction Factor: 20 mg/dL/unit * Prandial insulin: Per carb ratio of 1 unit per 5 grams CHO consumed - Outpatient Anti-Diabetic Meds Levemir 20 units qAM Humalog 7 units TIDM - Assessment & Plan ASSESSMENT: * See progress note from 02/03/19 for more background info, in short: * Pt receiving SQ basal bolus insulin regimen for hyperglycemia secondary to baseline DM (outpatient regimen on hold),stress/infection (currently on cipro PO and daptomycin IV), and on chronic prednisone 5 mg daily * Patient is currently receiving an average of 56 units of insulin per day * 15 units of basal insulin * 41 units of prandial/correctional insulin * BSGs ranging 114 - 235 mg/dl over the past 24hrs * Changes needed to insulin regimen: * AM Fasting BSG = 150 mg/dl. This is slightly above goal range for patient based on inpatient targets and co-morbidities. The patient has been fluctuating between 15 - 20 units daily. The patient may require a total daily dose of 18 units/day. I suspect that maybe the Levemir is "wearing off" as the patient's blood sugars rise throughout the day then decrease overnight. Add a nighttime dose of Levemir - can d/c tomorrow if not working for the patient. * Post-prandial BSGs are elevated. Tighten CF as CR already tight. * Total daily dose = ~50 units. Patient's regimen is very bolus heavy currently has Levemir dose is limited by fasting blood sugars. That is okay since some patient's require more Novolog. PLAN FOR INPATIENT GLYCEMIC CONTROL: * Continuing Levemir 15 units qAM But add Levemir 0-5 units at bedtime * TIGHTENING correction factor to 18 mg/dl/unit * Continuing carb ratio of 1 unit per 5 grams CHO consumed * Continuing goal range of Low 110 mg/dL - High 140 mg/dL * Please note that the plan above was derived based on current level of insulin resistance and hospital stress. These recommendations are appropriate for inpatient admission only. Plan of care upon discharge will need to be reassessed to avoid potential outpatient hypo/hyperglycemia. Thank you.
[2019-02-17] MEDS: DAPTOmycin 300 MG in SYRINGE 0 ML IV SCH (10:04)
--- NOTE | 2019-02-17 10:57 | Hospitalist Progress Note ---
Date of Service February 17, 2019 Assessment & Plan (1) Osteomyelitis: Nonhealing bilateral diabetic toe infection During recent admission, x-ray showed osteomyelitis the right great toe; no signs of osteomyelitis on x-ray of left great toe; unable to obtain MRI due to pacemaker Had been on doxycycline per wound care center; patient was evaluated by ID during recent admission who advised to continue doxycycline; patient completed course on 01/26 Wound culture from 01/16 grew MRSA and Serratia Per daughter, patient has been evaluated by orthopedics and vascular surgery as an outpatient for possible amputation however given her underlying severe PAD/advanced age: High risk for non-healing surgical wound Family agreeable for conservative treatment with IV antibiotic CT scans of bilateral great toes showing signs of osteomyelitis Consulted infectious disease: Recommends patient should continue with IV daptomycin and p.o. ciprofloxacin for total 6 weeks therapy / now considering other options as pt has difficulty w/ placement d/t daptomycin cost Oral ciprofloxacin resumed, monitor QTC; EKG shows Qtc remains in ~500 , no worsening noted Unable to have a PICC line/midline placed secondary to severe peripheral vascular disease IV team able to put a ultrasound-guided peripheral line, which can be utilized for IV daptomycin treatment for next 4 weeks( pt received 2 weeks of IV abx therapy already Family updated, Patient's daughter Katey Leonardo ( POA ) : Phone number [phone] wants her mother to complete IV antibiotic as recommended by ID Dr Curry Difficulty w/ placement Per Dr. Jeong - received call form Case management - acute rehab to [facility] Peer to Peer review Done with [facility] client services director will not qualify for Acute rehab -without any Physical therapy needs ( just for IV Abx ) But agreed to authorize Skilled rehab -and cover the cost for IV Daptomycin for 4 weeks CM notified referral made to [facility] pt can be transferred to SNF when bed available with coverage for 4 weeks of IV ABx pt will need Weekly Lab draw: CK level , Creatinine level and EKG ( to assess Qtc level while on PO Cipro) (2) Diabetes mellitus, type 2: Patient presented from [facility] with hypoglycemia Recent admission to [facility] 01/21 through 01/24 for hypoglycemia and management of right great toe osteomyelitis OUTPATIENT ANTIDIABETIC REGIMEN: Insulin detemir (Levemir) 20 units SQ HS NovoLog 7 units SQ TIDM A1c = 8.4 % 01/22/19 Developed Hypoglycemia in the ' Basal insulin dose reduced to 12 units at bedtime started on Very conservative sliding scale to prevent hypoglycemia pt been having intermittently Hyperglycemic episodes evening BSG > 300 Appreciate pharmacy recommendation to adjust/reduce insulin regimen at present in patient Insulin regimen /Per pharmacy Basal insulin : Levemir 20 units SC daily NovoLog per scale Goal Range: Low 100 mg/dL - High 140 mg/dL Correction Factor: 25 mg/dL/unit carb ratio of 1 unit per 5 grams CHO consumed cont to monitor BSG AC and HS (3) Ischemic cardiomyopathy: stable (4) ICD (implantable cardioverter-defibrillator) in place: Echo 09/2018 EF 30 to 35% remains euvolemic Continue diuretics and aspirin Continue Coreg with holding parameters PROLONGED QTC Continue p.o. ciprofloxacin with daily EKG monitoring (5) PAD (peripheral artery disease): Severe peripheral vascular disease leading to nonhealing infected diabetic toe wound/leading to osteomyelitis Ultrasound-guided peripheral line placed, pt already had approx 2 weeks of IV abx in hospital Plan for 4 more weeks of IV Daptomycin has USG guided line placed , good for the duration of abx (6) PMR (polymyalgia rheumatica): Continue chronic prednisone (7) Dementia: Very pleasantly demented, Very cooperative, comfortable on current setting No agitation noted (8) Pacemaker: stable (9) DVT prophylaxis: SQ Lovenox Disposition Plan is to discharge patient to skilled rehab to continue 4 more weeks of IV antibiotics for toe osteomyelitis Subjective Patient is sitting up in the chair, in no acute distress. Nursing staff at the bedside, patient feels comfortable denies any fevers, chills, chest pain, shortness of breath, abdominal pain. She is pleasantly demented, and does not answer questions appropriately. However she smiles a lot and does not seem to be in any distress. Review of Systems Review of Systems: All systems reviewed & are unremarkable except as noted in HPI & below Constitutional: no fever and no chills Respiratory: no cough and no dyspnea Cardiovascular: no chest pain, no palpitations and no edema Gastrointestinal: no abdominal pain, no nausea and no vomiting Physical Exam Physical Exam: Constitutional: Elderly female laying in bed in no acute distress WD/WN Eyes: PERRL, conjunctivae normal, anicteric sclerae ENMT: external ear and nose normal, oropharynx normal Respiratory: normal respiratory effort, lungs clear to auscultation normal respiratory effort; no respiratory distress Auscultation: + diminished lung sounds (Poor inspiratory effort) Cardiovascular: Rate/Rhythm: regular rate and regular rhythm Vessels: normal peripheral pulses Extremities: no edema Gastrointestinal (Abdomen): normal bowel sounds, soft, nontender, Inspection/Auscultation: normal bowel sounds Percussion/Palpation: abdomen soft; abdomen nontender Musculoskeletal: no cyanosis or clubbing, extremities motor strength 5/5 Extremities: + foot abnormality ( Great Toe wound , bandage present ) Skin: no rashes, warm and dry Neurologic: PERRL, EOMI, accommodation nl, no face palsy, no dysarthria Psychiatric: Orientation: alert; + not oriented to person, + not oriented to place and + not oriented to time Results & Data Vital Signs (Past 12 Hours) Vital Signs Temp Pulse Resp BP Pulse Ox 02/17/19 06:48 36.3 C L 68 18 122/64 97 02/16/19 23:23 36.2 C L 70 19 104/58 L 96 Laboratory Results 02/17/19 02/16/19 02/16/19 Range/Units 08:11 20:58 20:32 POC Glucose 150 H 235 H 204 H (70-99) 02/16/19 02/16/19 02/16/19 Range/Units 17:07 12:20 08:23 POC Glucose 192 H 213 H 114 H (70-99) Medications Administered Current Inpatient Medications Acetaminophen (Tylenol) 650 mg PO Q4H PRN PRN Reason: pain/fever Stop: 03/02/19 16:07 Last Admin: 02/04/19 08:14 Dose: 650 mg Documented by: Aspirin (Ecotrin Ectab) 81 mg PO QAM [facility] Stop: 03/03/19 08:59 Last Admin: 02/17/19 08:45 Dose: 81 mg Documented by: Carvedilol (Coreg) 12.5 mg PO BID@0800,1700 [facility] Stop: 03/02/19 16:59 Last Admin: 02/17/19 08:44 Dose: 12.5 mg Documented by: Ciprofloxacin (Cipro) 250 mg PO Q12 [facility]; Protocol Stop: 03/18/19 20:59 Last Admin: 02/17/19 08:45 Dose: 250 mg Documented by: Dextrose (Dextrose 50%) 25 - 50 ml IV UD PRN; Protocol PRN Reason: Hypoglycemia Protocol Stop: 03/02/19 16:07 Docusate Sodium (Colace) 100 mg PO BID [facility] Stop: 03/02/19 20:59 Last Admin: 02/17/19 08:44 Dose: 100 mg Documented by: Enoxaparin Sodium (Lovenox) 40 mg SQ Q24H [facility] Stop: 03/02/19 16:59 Last Admin: 02/16/19 16:36 Dose: 40 mg Documented by: Gabapentin (Neurontin) 100 mg PO BID@0800,1700 [facility] Stop: 03/02/19 16:59 Last Admin: 02/17/19 08:45 Dose: 100 mg Documented by: Glucagon (Glucagen) 1 mg SQ UD PRN; Protocol PRN Reason: Hypoglycemia Protocol Stop: 03/02/19 16:07 Glucose (Glucose 40%) 15 - 30 gm PO UD PRN; Protocol PRN Reason: Hypoglycemia Protocol Stop: 03/02/19 16:07 Glucose (Dex4 Glucose) 4 - 8 tabs PO UD PRN; Protocol PRN Reason: Hypoglycemia Protocol Stop: 03/02/19 16:07 Daptomycin 300 mg/ Syringe 6 mls @ 5 mls/min IV DAILY@0900 [facility]; Protocol Stop: 03/19/19 08:59 Last Admin: 02/17/19 10:04 Dose: 5 mls/min Documented by: Insulin Aspart (Novolog Flexpen) 0 units SC ACHS [facility] Stop: 03/02/19 16:59 Last Admin: 02/17/19 10:01 Dose: 9 units Documented by: Insulin Detemir (Levemir Flextouch) 0 units SC DAILY [facility]; Protocol Stop: 03/11/19 08:59 Last Admin: 02/17/19 08:46 Dose: 20 units Documented by: Insulin Detemir (Levemir Flextouch) 0 units SC HS [facility]; Protocol Stop: 03/19/19 20:59 Loratadine (Claritin) 10 mg PO QAM [facility] Stop: 03/03/19 08:59 Last Admin: 02/17/19 08:45 Dose: 10 mg Documented by: Losartan Potassium (Cozaar) 25 mg PO QAM [facility] Stop: 03/03/19 08:59 Last Admin: 02/12/19 08:24 Dose: 25 mg Documented by: Miscellaneous (Carbohydrates For Hypoglycemia) 15 - 30 gm PO UD PRN PRN Reason: Hypoglycemia Treatment Stop: 03/02/19 16:07 Miscellaneous Information (Consult Glycemic Management Pharmacy) 1 ea N/A UD PRN PRN Reason: Consult Stop: 03/05/19 16:49 Miscellaneous Information (Consult) 1 ea N/A UD PRN PRN Reason: Consult Stop: 03/06/19 15:44 [facility]ivit[facility] ([facility]amin Tab) [facility] Stop: 03/03/19 08:59 Last Admin: 02/17/19 08:44 Dose: 1 tab Documented by: Polyethylene Glycol (Miralax Powder Packet) 17 gm PO BID [facility] Stop: 03/14/19 20:59 Last Admin: 02/17/19 08:46 Dose: 17 gm Documented by: Prednisone (Prednisone) [facility] Stop: 03/03/19 08:59 Last Admin: 02/17/19 08:44 Dose: 5 mg Documented by: Quetiapine Fumarate (Seroquel) 50 mg PO [facility] Stop: 03/03/19 08:59 Last Admin: 02/17/19 08:44 Dose: 50 mg Documented by: Quetiapine Fumarate (Seroquel) 75 mg PO [facility] Stop: 03/02/19 20:59 Last Admin: 02/16/19 20:50 Dose: 75 mg Documented by: Ranitidine HCl (Zantac) 150 mg PO BID@0800,1700 [facility] Stop: 03/02/19 16:59 Last Admin: 02/17/19 08:45 Dose: 150 mg Documented by: Senna/Docusate Sodium (Senokot S) [facility] Stop: 03/08/19 04:59 Last Admin: 02/17/19 08:46 Dose: 1 tab Documented by: Tolterodine Tartrate (Detrol) 1 mg PO [facility] Stop: 03/02/19 20:59 Last Admin: 02/16/19 20:49 Dose: 1 mg Documented by: Vitamin D (Vitamin D3) 400 units PO QAM [facility] Stop: 03/03/19 08:59 Last Admin: 02/17/19 08:44 Dose: 400 units Documented by: (1) Osteomyelitis Osteomyelitis type: unspecified type Osteomyelitis location: foot Laterality: right Qualified Code(s): M86.9 - Osteomyelitis, unspecified
[2019-02-17] MEDS: ENOXAPARIN INJ 40 MG/0.4 ML SYR SQ SCH (17:58)
[2019-02-17] MEDS: TOLTERODINE TARTRATE 1 MG TAB PO SCH (20:46)
[2019-02-18 06:13] LABS: Hematocrit (blood only) 29.5 % (37-47); Hemoglobin 9.5 g/dL (12.0-16.0); Mean Corpuscular Hemoglobin 28.2 pg (25-34); Mean Corpuscular Hgb Conc 32.2 g/dL (32-36); Mean Corpuscular Volume 87.5 fL (80-100); Mean Platelet Volume 9.2 fL (7.4-10.4); Platelet Count 351 K/uL (130-400); RDW Coefficient of Variation 18.5 % (11.5-14.5); RDW Standard Deviation 59.9 fL (36.4-46.3); Red Blood Count 3.37 M/uL (4.2-5.4); White Blood Count 7.32 K/uL (4.8-10.8)
[2019-02-18 06:42] LABS: BUN Creatinine Ratio 24.2 (10-20); Calcium 8.6 mg/dl (8.5-10.1); Creatinine Clr Calc Pharmacy 38.9 ml/min; Est GFR (African American) 74.5; Est GFR (Non-African American) 64.3; Magnesium 2.1 mg/dl (1.8-2.4); Potassium 4.2 mmol/L (3.5-5.1)
--- NOTE | 2019-02-18 07:59 | Hospitalist Progress Note ---
Date of Service February 18, 2019 Assessment & Plan (1) Osteomyelitis: Nonhealing bilateral diabetic toe infection During recent admission, x-ray showed osteomyelitis the right great toe; no signs of osteomyelitis on x-ray of left great toe; unable to obtain MRI due to pacemaker Had been on doxycycline per wound care center; patient was evaluated by ID during recent admission who advised to continue doxycycline; patient completed course on 01/26 Wound culture from 01/16 grew MRSA and Serratia Per daughter, patient has been evaluated by orthopedics and vascular surgery as an outpatient for possible amputation however given her underlying severe PAD/advanced age: High risk for non-healing surgical wound Family agreeable for conservative treatment with IV antibiotic CT scans of bilateral great toes showing signs of osteomyelitis Consulted infectious disease: Recommends patient should continue with IV daptomycin and p.o. ciprofloxacin for total 6 weeks therapy / now considering other options as pt has difficulty w/ placement d/t daptomycin cost Oral ciprofloxacin resumed, monitor QTC; EKG shows Qtc remains in ~500 , no worsening noted Unable to have a PICC line/midline placed secondary to severe peripheral vascular disease IV team able to put a ultrasound-guided peripheral line, which can be utilized for IV daptomycin treatment for next 4 weeks( pt received 2 weeks of IV abx therapy already Family updated, Patient's daughter Katey Leonardo ( POA ) : Phone number [phone] wants her mother to complete IV antibiotic as recommended by ID Dr Curry Difficulty w/ placement Per Dr. Jeong - received call form Case management - acute re[facility] Peer to Peer review Done with [facility] channel development director will not qualify for Acute rehab -without any Physical therapy needs ( just for IV Abx ) But agreed to authorize Skilled rehab -and cover the cost for IV Daptomycin for 4 weeks CM notified referral made to [facility] pt can be transferred to SNF when bed available with coverage for 4 weeks of IV ABx pt will need Weekly Lab draw: CK level , Creatinine level and EKG ( to assess Qtc level while on PO Cipro) (2) Diabetes mellitus, type 2: Patient presented from [facility] with hypoglycemia Recent admission to [facility] 01/21 through 01/24 for hypoglycemia and management of right great toe osteomyelitis OUTPATIENT ANTIDIABETIC REGIMEN: Insulin detemir (Levemir) 20 units SQ HS NovoLog 7 units SQ TIDM A1c = 8.4 % 01/22/19 Developed Hypoglycemia in the ' Basal insulin dose reduced to 12 units at bedtime started on Very conservative sliding scale to prevent hypoglycemia pt been having intermittently Hyperglycemic episodes evening BSG > 300 Appreciate pharmacy recommendation to adjust/reduce insulin regimen at present in patient Insulin regimen /Per pharmacy Basal insulin : Levemir 20 units SC daily NovoLog per scale Goal Range: Low 100 mg/dL - High 140 mg/dL Correction Factor: 25 mg/dL/unit carb ratio of 1 unit per 5 grams CHO consumed cont to monitor BSG AC and HS (3) Ischemic cardiomyopathy: stable (4) ICD (implantable cardioverter-defibrillator) in place: Echo 09/2018 EF 30 to 35% remains euvolemic Continue diuretics and aspirin Continue Coreg with holding parameters PROLONGED QTC Continue p.o. ciprofloxacin with daily EKG monitoring (5) PAD (peripheral artery disease): Severe peripheral vascular disease leading to nonhealing infected diabetic toe wound/leading to osteomyelitis Ultrasound-guided peripheral line placed, pt already had approx 2 weeks of IV abx in hospital Plan for 4 more weeks of IV Daptomycin has USG guided line placed , good for the duration of abx (6) PMR (polymyalgia rheumatica): Continue chronic prednisone Anemia Normocytic, most likely secondary to chronic disease Current hemoglobin 9.5, will continue to monitor (7) Dementia: Very pleasantly demented, Very cooperative, comfortable on current setting No agitation noted (8) Pacemaker: stable (9) DVT prophylaxis: SQ Lovenox Disposition Plan is to discharge patient to skilled rehab to continue 4 more weeks of IV antibiotics for toe osteomyelitis Subjective Patient is sitting up in the chair, in no acute distress. Patient appears comfortable, denies any fevers, chills, chest pain, shortness of breath, abdominal pain. She is pleasantly demented, and unfortunately does not answer questions appropriately. However she smiles a lot and does not seem to be in any distress. Review of Systems Review of Systems: Unobtainable due to cognitive status Constitutional: no fever and no chills Respiratory: no cough and no dyspnea Cardiovascular: no chest pain, no dyspnea on exertion, no palpitations and no edema Gastrointestinal: no abdominal pain, no nausea and no vomiting Physical Exam Physical Exam: Constitutional: Elderly female sitting up in the chair in no acute distress WD/WN Eyes: PERRL, conjunctivae normal, anicteric sclerae ENMT: external ear and nose normal, oropharynx normal Respiratory: normal respiratory effort, lungs clear to auscultation normal respiratory effort; no respiratory distress Auscultation: + diminished lung sounds (Poor inspiratory effort) Cardiovascular: Rate/Rhythm: regular rate and regular rhythm Vessels: normal peripheral pulses Extremities: no edema Gastrointestinal (Abdomen): normal bowel sounds, soft, nontender, Inspection/Auscultation: normal bowel sounds Percussion/Palpation: abdomen soft; abdomen nontender Musculoskeletal: no cyanosis or clubbing, extremities motor strength 5/5 Extremities: + foot abnormality ( Great Toe wound , bandage present ) Skin: no rashes, warm and dry Neurologic: PERRL, EOMI, accommodation nl, no face palsy, no dysarthria, moves all 4 extremities spontaneously Psychiatric: Orientation: alert; + not oriented to person, + not oriented to place and + not oriented to time, does not answer questions appropriately due to dementia Results & Data Vital Signs (Past 12 Hours) Vital Signs Temp Pulse Resp BP Pulse Ox 02/18/19 00:05 36.6 C 84 16 129/66 98 Laboratory Results 02/18/19 02/18/19 02/18/19 Range/Units 05:58 05:58 05:58 WBC 7.32 (4.8-10.8) K/uL RBC 3.37 L (4.2-5.4) M/uL Hgb 9.5 L (12.0-16.0) g/dL Hct 29.5 L (37-47) % MCV 87.5 (80-100) fL MCH 28.2 (25-34) pg MCHC 32.2 (32-36) g/dL RDW Std Deviation 59.9 H (36.4-46.3) fL RDW Coeff of Fercho 18.5 H (11.5-14.5) % Plt Count 351 (130-400) K/uL MPV 9.2 (7.4-10.4) fL Sodium 139 (136-145) mmol/L Potassium 4.2 (3.5-5.1) mmol/L Chloride 107 (98-107) mmol/L Carbon Dioxide 26 (21-32) mmol/L Anion Gap 6.0 (3-11) BUN 21 H (7-18) mg/dl Creatinine Cancelled 0.87 (0.6-1.2) mg/dl Est Cr Clr Drug Dosing Cancelled 38.9 ml/min Est GFR ( Amer) Cancelled 74.5 Est GFR (Non-Af Amer) Cancelled 64.3 BUN/Creatinine Ratio 24.2 H (10-20) Glucose 126 H (70-99) mg/dl POC Glucose (70-99) Calcium 8.6 (8.5-10.1) mg/dl Magnesium Cancelled 2.1 (1.8-2.4) mg/dl 02/17/19 02/17/19 02/17/19 Range/Units 20:38 17:12 12:21 WBC (4.8-10.8) K/uL RBC (4.2-5.4) M/uL Hgb (12.0-16.0) g/dL Hct (37-47) % MCV (80-100) fL MCH (25-34) pg MCHC (32-36) g/dL RDW Std Deviation (36.4-46.3) fL RDW Coeff of Fercho (11.5-14.5) % Plt Count (130-400) K/uL MPV (7.4-10.4) fL Sodium (136-145) mmol/L Potassium (3.5-5.1) mmol/L Chloride (98-107) mmol/L Carbon Dioxide (21-32) mmol/L Anion Gap (3-11) BUN (7-18) mg/dl Creatinine (0.6-1.2) mg/dl Est Cr Clr Drug Dosing ml/min Est GFR ( Amer) Est GFR (Non-Af Amer) BUN/Creatinine Ratio (10-20) Glucose (70-99) mg/dl POC Glucose 196 H 131 H 122 H (70-99) Calcium (8.5-10.1) mg/dl Magnesium (1.8-2.4) mg/dl 02/17/19 Range/Units 08:11 WBC (4.8-10.8) K/uL RBC (4.2-5.4) M/uL Hgb (12.0-16.0) g/dL Hct (37-47) % MCV (80-100) fL MCH (25-34) pg MCHC (32-36) g/dL RDW Std Deviation (36.4-46.3) fL RDW Coeff of Fercho (11.5-14.5) % Plt Count (130-400) K/uL MPV (7.4-10.4) fL Sodium (136-145) mmol/L Potassium (3.5-5.1) mmol/L Chloride (98-107) mmol/L Carbon Dioxide (21-32) mmol/L Anion Gap (3-11) BUN (7-18) mg/dl Creatinine (0.6-1.2) mg/dl Est Cr Clr Drug Dosing ml/min Est GFR ( Amer) Est GFR (Non-Af Amer) BUN/Creatinine Ratio (10-20) Glucose (70-99) mg/dl POC Glucose 150 H (70-99) Calcium (8.5-10.1) mg/dl Magnesium (1.8-2.4) mg/dl Medications Administered Current Inpatient Medications Acetaminophen (Tylenol) 650 mg PO Q4H PRN PRN Reason: pain/fever Stop: 03/02/19 16:07 Last Admin: 02/04/19 08:14 Dose: 650 mg Documented by: Aspirin (Ecotrin Ectab) 81 mg PO QAM [facility] Stop: 03/03/19 08:59 Last Admin: 02/17/19 08:45 Dose: 81 mg Documented by: Carvedilol (Coreg) 12.5 mg PO BID@0800,1700 [facility] Stop: 03/02/19 16:59 Last Admin: 02/17/19 17:59 Dose: 12.5 mg Documented by: Ciprofloxacin (Cipro) 250 mg PO Q12 [facility]; Protocol Stop: 03/18/19 20:59 Last Admin: 02/17/19 20:45 Dose: 250 mg Documented by: Dextrose (Dextrose 50%) 25 - 50 ml IV UD PRN; Protocol PRN Reason: Hypoglycemia Protocol Stop: 03/02/19 16:07 Docusate Sodium (Colace) 100 mg PO BID [facility] Stop: 03/02/19 20:59 Last Admin: 02/17/19 20:47 Dose: Not Given Documented by: Enoxaparin Sodium (Lovenox) 40 mg SQ Q24H [facility] Stop: 03/02/19 16:59 Last Admin: 02/17/19 17:58 Dose: 40 mg Documented by: Gabapentin (Neurontin) 100 mg PO BID@0800,1700 [facility] Stop: 03/02/19 16:59 Last Admin: 02/17/19 17:58 Dose: 100 mg Documented by: Glucagon (Glucagen) 1 mg SQ UD PRN; Protocol PRN Reason: Hypoglycemia Protocol Stop: 03/02/19 16:07 Glucose (Glucose 40%) 15 - 30 gm PO UD PRN; Protocol PRN Reason: Hypoglycemia Protocol Stop: 03/02/19 16:07 Glucose (Dex4 Glucose) 4 - 8 tabs PO UD PRN; Protocol PRN Reason: Hypoglycemia Protocol Stop: 03/02/19 16:07 Daptomycin 300 mg/ Syringe 6 mls @ 5 mls/min IV DAILY@0900 [facility]; Protocol Stop: 03/19/19 08:59 Last Admin: 02/17/19 10:04 Dose: 5 mls/min Documented by: Insulin Aspart (Novolog Flexpen) [address] [facility] Stop: 03/02/19 16:59 Last Admin: 02/17/19 20:52 Dose: 6 units Documented by: Insulin Detemir (Levemir Flextouch) 0 units SC HS [facility]; Protocol Stop: 03/19/19 20:59 Last Admin: 02/17/19 20:53 Dose: 5 units Documented by: Insulin Detemir (Levemir Flextouch) 20 units SC DAILY [facility]; Protocol Stop: 03/20/19 08:59 Loratadine (Claritin) 10 mg PO [facility] Stop: 03/03/19 08:59 Last Admin: 02/17/19 08:45 Dose: 10 mg Documented by: Losartan Potassium (Co[facility]ar) [facility] Stop: 03/03/19 08:59 Last Admin: 02/12/19 08:24 Dose: 25 mg Documented by: Miscellaneous (Carbohydrates For Hypoglycemia) 15 - 30 gm PO UD PRN PRN Reason: Hypoglycemia Treatment Stop: 03/02/19 16:07 Miscellaneous Information (Consult Glycemic Management Pharmacy) 1 ea N/A UD PRN PRN Reason: Consult Stop: 03/05/19 16:49 Miscellaneous Information (Consult) 1 ea N/A UD PRN PRN Reason: Consult Stop: 03/06/19 15:44 Multivitamins (Multivitamin Tab) [facility] Protocol Stop: 03/03/19 08:59 Last Admin: 02/17/19 08:44 Dose: 1 tab Documented by: Polyethylene Glycol (Miralax Powder Packet) 17 gm PO BID [facility] Stop: 03/14/19 20:59 Last Admin: 02/17/19 20:47 Dose: Not Given Documented by: Prednisone (Prednisone) 5 mg PO [facility] Stop: 03/03/19 08:59 Last Admin: 02/17/19 08:44 Dose: 5 mg Documented by: Quetiapine Fumarate (Seroquel) 50 mg PO [facility] Stop: 03/03/19 08:59 Last Admin: 02/17/19 08:44 Dose: 50 mg Documented by: Quetiapine Fumarate (Seroquel) 75 mg PO [facility] Stop: 03/02/19 20:59 Last Admin: 02/17/19 20:43 Dose: 75 mg Documented by: Ranitidine HCl (Zantac) 150 mg PO BID@0800,1700 [facility] Stop: 03/02/19 16:59 Last Admin: 02/17/19 17:59 Dose: 150 mg Documented by: Senna/Docusate Sodium (Senokot S) 1 tab PO [facility] Stop: 03/08/19 04:59 Last Admin: 02/17/19 08:46 Dose: 1 tab Documented by: Tolterodine Tartrate (Detrol) 1 mg PO [facility] Stop: 03/02/19 20:59 Last Admin: 02/17/19 20:46 Dose: 1 mg Documented by: Vitamin D (Vitamin D3) 400 units PO [facility] Stop: 03/03/19 08:59 Last Admin: 02/17/19 08:44 Dose: 400 units Documented by: (1) Osteomyelitis Osteomyelitis type: unspecified type Osteomyelitis location: foot Laterality: right Qualified Code(s): M86.9 - Osteomyelitis, unspecified
[2019-02-18] MEDS: INSULIN DETEMIR FLEXPEN/FLEX TOUCH 100 UNITS/ML 3ML SC SCH ×2 (09:10→21:25)
[2019-02-18] MEDS: INSULIN ASPART 100 UNITS/ML 3 ML PEN SC SCH ×4 (09:11→21:25)
[2019-02-18] MEDS: carvediloL 12.5 MG TAB PO SCH ×2 (09:28→18:40)
[2019-02-18] MEDS: GABAPENTIN 100 MG CAP PO SCH ×2 (09:29→18:41)
[2019-02-18] MEDS: LORATADINE 10 MG TAB PO SCH (09:30)
[2019-02-18] MEDS: CIPROFLOXACIN 250 MG TAB PO SCH ×2 (09:30→21:15)
[2019-02-18] MEDS: DOCUSATE SODIUM 100 MG CAP PO SCH ×2 (09:31→21:14)
[2019-02-18] MEDS: CHOLECALCIFEROL (VITAMIN D) 400 UNITS TABLET PO SCH (09:31)
[2019-02-18] MEDS: MULTIVITAMIN TAB PO SCH (09:31)
[2019-02-18] MEDS: predniSONE 5 MG TAB PO SCH (09:32)
[2019-02-18] MEDS: QUETIAPINE FUMARATE 25 MG TABLET PO SCH ×2 (09:32→21:14)
[2019-02-18] MEDS: ASPIRIN 81 MG ECTAB PO SCH (09:33)
[2019-02-18] MEDS: DAPTOmycin 300 MG in SYRINGE 0 ML IV SCH (09:34)
[2019-02-18] MEDS: DOCUSATE SODIUM/SENNA 50/8.6MG TAB PO SCH (09:34)
[2019-02-18] MEDS: POLYETHYLENE (MIRALAX) 17 GM PACK PO SCH ×2 (13:20→21:14)
[2019-02-18] MEDS: ENOXAPARIN INJ 40 MG/0.4 ML SYR SQ SCH (18:42)
[2019-02-18] MEDS: TOLTERODINE TARTRATE 1 MG TAB PO SCH (21:15)
[2019-02-19 07:27] LABS: Creatinine Clr Calc Pharmacy 38.5 ml/min; Est GFR (African American) 73.5; Est GFR (Non-African American) 63.4
[2019-02-19] MEDS: POLYETHYLENE (MIRALAX) 17 GM PACK PO SCH ×2 (08:36→20:57)
[2019-02-19] MEDS: DOCUSATE SODIUM/SENNA 50/8.6MG TAB PO SCH (08:37)
[2019-02-19] MEDS: MULTIVITAMIN TAB PO SCH (08:38)
[2019-02-19] MEDS: LORATADINE 10 MG TAB PO SCH (08:38)
[2019-02-19] MEDS: CIPROFLOXACIN 250 MG TAB PO SCH ×2 (08:38→21:03)
[2019-02-19] MEDS: ASPIRIN 81 MG ECTAB PO SCH (08:38)
[2019-02-19] MEDS: QUETIAPINE FUMARATE 25 MG TABLET PO SCH ×2 (08:39→21:03)
[2019-02-19] MEDS: carvediloL 12.5 MG TAB PO SCH ×2 (08:39→18:15)
[2019-02-19] MEDS: CHOLECALCIFEROL (VITAMIN D) 400 UNITS TABLET PO SCH (08:39)
[2019-02-19] MEDS: DOCUSATE SODIUM 100 MG CAP PO SCH ×2 (08:39→21:02)
[2019-02-19] MEDS: predniSONE 5 MG TAB PO SCH (08:39)
[2019-02-19] MEDS: GABAPENTIN 100 MG CAP PO SCH ×2 (08:40→18:14)
[2019-02-19] MEDS: DAPTOmycin 300 MG in SYRINGE 0 ML IV SCH (08:42)
--- NOTE | 2019-02-19 08:43 | Hospitalist Progress Note ---
Date of Service February 19, 2019 Assessment & Plan (1) Osteomyelitis: Nonhealing bilateral diabetic toe infection During recent admission, x-ray showed osteomyelitis the right great toe; no signs of osteomyelitis on x-ray of left great toe; unable to obtain MRI due to pacemaker Had been on doxycycline per wound care center; patient was evaluated by ID during recent admission who advised to continue doxycycline; patient completed course on 01/26 Wound culture from 01/16 grew MRSA and Serratia Per daughter, patient has been evaluated by orthopedics and vascular surgery as an outpatient for possible amputation however given her underlying severe PAD/advanced age: High risk for non-healing surgical wound Family agreeable for conservative treatment with IV antibiotic CT scans of bilateral great toes showing signs of osteomyelitis Consulted infectious disease: Recommends patient should continue with IV daptomycin and p.o. ciprofloxacin for total 6 weeks therapy / now considering other options as pt has difficulty w/ placement d/t daptomycin cost while inpt oral ciprofloxacin resumed, monitor QTC; EKG shows Qtc remains in ~500 , no worsening noted Unable to have a PICC line/midline placed secondary to severe peripheral va scular disease IV team able to put an ultrasound-guided peripheral line Patient's daughter Katey Leonardo ( STACIA ) : Phone number [phone] wants her mother to complete IV antibiotic as recommended by ID Dr Curry Difficulty w/ placement Plan to d/c back to [facility], and will receive Dalvac as outpt at [facility] (2) Diabetes mellitus, type 2: Patient presented from [facility] with hypoglycemia Recent admission to [facility] 01/21 through 01/24 for hypoglycemia and management of right great toe osteomyelitis OUTPATIENT ANTIDIABETIC REGIMEN: Insulin detemir (Levemir) 20 units SQ HS NovoLog 7 units SQ TIDM A1c = 8.4 % 01/22/19 Developed Hypoglycemia in the 20's Basal insulin dose reduced to 12 units at bedtime started on Very conservative sliding scale to prevent hypoglycemia pt been having intermittently Hyperglycemic episodes evening BSG > 300 Appreciate pharmacy recommendation to adjust/reduce insulin regimen at present in patient Insulin regimen /Per pharmacy Basal insulin : Levemir 20 units SC daily NovoLog per scale Goal Range: Low 100 mg/dL - High 140 mg/dL Correction Factor: 25 mg/dL/unit carb ratio of 1 unit per 5 grams CHO consumed cont to monitor BSG AC and HS (3) Ischemic cardiomyopathy: stable (4) ICD (implantable cardioverter-defibrillator) in place: Echo 09/2018 EF 30 to 35% remains euvolemic Continue diuretics and aspirin Continue Coreg with holding parameters PROLONGED QTC Continue p.o. ciprofloxacin with daily EKG monitoring (5) PAD (peripheral artery disease): Severe peripheral vascular disease leading to nonhealing infected diabetic toe wound/leading to osteomyelitis Ultrasound-guided peripheral line placed, good for the duration of abx (6) PMR (polymyalgia rheumatica): Continue chronic prednisone Anemia Normocytic, most likely secondary to chronic disease most recent hemoglobin 9.5, will continue to monitor (7) Dementia: Very pleasantly demented, Very cooperative, comfortable on current setting No agitation noted (8) Pacemaker: stable (9) DVT prophylaxis: SQ Lovenox Disposition Plan is to discharge patient back to [facility], plan to finish IV antibiotics for toe osteomyelitis Subjective No acute events overnight, patient is sitting up in the chair, in no acute distress. Nursing staff present in the room, no concerns from them. Patient denies any pain, or discomfort, denies any fevers or chills, however due to dementia patient does not answer all the questions appropriately. Review of Systems Review of Systems: Unobtainable due to mental health condition (dementia) Constitutional: no fever and no chills Respiratory: no cough and no dyspnea Cardiovascular: no chest pain, no palpitations and no edema Gastrointestinal: no abdominal pain, no nausea and no vomiting Physical Exam Physical Exam: Elderly female sitting up in the chair, in no acute distress Constitutional: well developed and well nourished; no acute distress Eyes: PERRL, conjunctivae normal, anicteric sclerae ENMT: external ear and nose normal, oropharynx normal Neck: trachea midline, no thyromegaly Respiratory: normal respiratory effort, lungs clear to auscultation Cardiovascular: RRR, no murmur, no edema Extremities: no edema Chest (Breasts): Chest: normal inspection of chest Gastrointestinal (Abdomen): Inspection/Auscultation: abdomen normal to inspection and normal bowel sounds; abdomen not distended Percussion/Palpation: abdomen soft; abdomen nontender and no guarding Musculoskeletal: no cyanosis or clubbing, extremities motor strength 5/5 Head/Neck/Chest: normocephalic, head atraumatic and neck supple Extremities: + extremities abnormal to inspection (Great toes wound, bandage applied) Skin: + wound (Great toes, as above); no rashes Neurologic: PERRL, EOMI, accommodation nl, no face palsy, no dysarthria Moves all 4 extremities spontaneously Psychiatric: Orientation: alert Speech: normal rate/rhythm/volume of speech Affect: euthymic affect She is not orientated and she does not answer questions appropriately d/t dementia Results & Data Vital Signs (Past 12 Hours) Vital Signs Temp Pulse Resp BP BP Pulse Ox 02/19/19 08:13 36.4 C L 69 18 95/47 L 98 02/18/19 23:03 36.6 C 68 16 117/61 98 Laboratory Results 02/19/19 02/18/19 02/18/19 Range/Units 06:41 20:42 17:07 Creatinine 0.88 (0.6-1.2) mg/dl Est Cr Clr Drug Dosing 38.5 ml/min Est GFR ( Amer) 73.5 Est GFR (Non-Af Amer) 63.4 POC Glucose 127 H 171 H (70-99) 02/18/19 Range/Units 12:07 Creatinine (0.6-1.2) mg/dl Est Cr Clr Drug Dosing ml/min Est GFR ( Amer) Est GFR (Non-Af Amer) POC Glucose 204 H (70-99) Medications Administered Current Inpatient Medications Acetaminophen (Tylenol) 650 mg PO Q4H PRN PRN Reason: pain/fever Stop: 03/02/19 16:07 Last Admin: 02/04/19 08:14 Dose: 650 mg Documented by: Aspirin (Ecotrin Ectab) 81 mg PO QAM [facility] Stop: 03/03/19 08:59 Last Admin: 02/19/19 08:38 Dose: 81 mg Documented by: Carvedilol (Coreg) 12.5 mg PO BID@0800,1700 [facility] Stop: 03/02/19 16:59 Last Admin: 02/19/19 08:39 Dose: Not Given Documented by: Ciprofloxacin (Cipro) 250 mg PO Q12 [facility]; Protocol Stop: 03/18/19 20:59 Last Admin: 02/19/19 08:38 Dose: 250 mg Documented by: Dextrose (Dextrose 50%) 25 - 50 ml IV UD PRN; Protocol PRN Reason: Hypoglycemia Protocol Stop: 03/02/19 16:07 Docusate Sodium (Colace) 100 mg PO BID [facility] Stop: 03/02/19 20:59 Last Admin: 02/19/19 08:39 Dose: Not Given Documented by: Enoxaparin Sodium (Lovenox) 40 mg SQ Q24H [facility] Stop: 03/02/19 16:59 Last Admin: 02/18/19 18:42 Dose: 40 mg Documented by: Gabapentin (Neurontin) 100 mg PO BID@0800,1700 [facility] Stop: 03/02/19 16:59 Last Admin: 02/19/19 08:40 Dose: 100 mg Documented by: Glucagon (Glucagen) 1 mg SQ UD PRN; Protocol PRN Reason: Hypoglycemia Protocol Stop: 03/02/19 16:07 Glucose (Glucose 40%) 15 - 30 gm PO UD PRN; Protocol PRN Reason: Hypoglycemia Protocol Stop: 03/02/19 16:07 Glucose (Dex4 Glucose) 4 - 8 tabs PO UD PRN; Protocol PRN Reason: Hypoglycemia Protocol Stop: 03/02/19 16:07 Daptomycin 300 mg/ Syringe 6 mls @ 5 mls/min IV DAILY@0900 [facility]; Protocol Stop: 03/19/19 08:59 Last Admin: 02/19/19 08:42 Dose: 5 mls/min Documented by: Insulin Aspart (Novolog Flexpen) 0 units SC ACHS [facility] Stop: 03/02/19 16:59 Last Admin: 02/18/19 21:25 Dose: Not Given Documented by: Insulin Detemir (Levemir Flextouch) 0 units SC HS [facility]; Protocol Stop: 03/19/19 20:59 Last Admin: 02/18/19 21:25 Dose: Not Given Documented by: Insulin Detemir (Levemir Flextouch) 20 units SC DAILY [facility]; Protocol Stop: 03/20/19 08:59 Last Admin: 02/18/19 09:10 Dose: 20 units Documented by: Loratadine (Claritin) 10 mg PO QAM [facility] Stop: 03/03/19 08:59 Last Admin: 02/19/19 08:38 Dose: 10 mg Documented by: Losartan Potassium (Cozaar) 25 mg PO QAM [facility] Stop: 03/03/19 08:59 Last Admin: 02/12/19 08:24 Dose: 25 mg Documented by: Miscellaneous (Carbohydrates For Hypoglycemia) 15 - 30 gm PO UD PRN PRN Reason: Hypoglycemia Treatment Stop: 03/02/19 16:07 Miscellaneous Information (Consult Glycemic Management Pharmacy) 1 ea N/A UD PRN PRN Reason: Consult Stop: 03/05/19 16:49 Miscellaneous Information (Consult) 1 ea N/A UD PRN PRN Reason: Consult Stop: 03/06/19 15:44 Multivitamins ([facility]ivitamin Tab) [facility]; Protocol Stop: 03/03/19 08:59 Last Admin: 02/19/19 08:38 Dose: 1 tab Documented by: Polyethylene Glycol (Miralax Powder Packet) 17 gm PO BID [facility] Stop: 03/14/19 20:59 Last Admin: 02/19/19 08:36 Dose: Not Given Documented by: Prednisone (Prednisone) [facility] Stop: 03/03/19 08:59 Last Admin: 02/19/19 08:39 Dose: 5 mg Documented by: Quetiapine Fumarate (Seroquel) 50 mg PO [facility] Stop: 03/03/19 08:59 Last Admin: 02/19/19 08:39 Dose: 50 mg Documented by: Quetiapine Fumarate (Seroquel) 75 mg PO [facility] Stop: 03/02/19 20:59 Last Admin: 02/18/19 21:14 Dose: 75 mg Documented by: Ranitidine HCl (Zantac) 150 mg PO BID@0800,1700 [facility] Stop: 03/02/19 16:59 Last Admin: 02/19/19 08:40 Dose: 150 mg Documented by: Senna/Docusate Sodium (Senokot S) 1 tab [facility] Stop: 03/08/19 04:59 Last Admin: 02/19/19 08:37 Dose: Not Given Documented by: Tolterodine Tartrate (Detrol) 1 mg PO [facility] Stop: 03/02/19 20:59 Last Admin: 02/18/19 21:15 Dose: 1 mg Documented by: Vitamin D (Vitamin D3) 400 units [facility] Stop: 03/03/19 08:59 Last Admin: 02/19/19 08:39 Dose: 400 units Documented by: (1) Osteomyelitis Laterality: right Osteomyelitis location: foot Osteomyelitis type: unspecified type Qualified Code(s): M86.9 - Osteomyelitis, unspecified
[2019-02-19] MEDS: INSULIN DETEMIR FLEXPEN/FLEX TOUCH 100 UNITS/ML 3ML SC SCH (08:50)
[2019-02-19] MEDS: INSULIN ASPART 100 UNITS/ML 3 ML PEN SC SCH ×4 (08:50→21:16)
--- NOTE | 2019-02-19 13:51 | Pharmacy Report ---
Pharmacy Glycemic Short Note 2 - Date of Service February 19, 2019 - Glycemic Short BSG Results (Last 24 hours): 02/18/19 02/18/19 02/19/19 17:07 20:42 08:08 POC Glucose 171 H 127 H 173 H 02/19/19 11:56 POC Glucose 215 H OUTPATIENT ANTIDIABETIC REGIMEN: * Insulin detemir (Levemir) 20 units SQ HS * NovoLog 7 units SQ TIDM * A1c = 8.4 % 01/22/19 ASSESSMENT: 02/19 * Ms. Liu received 20 units of basal and 40 units of bolus insulin yesterday * Her BSGs today were recorded after insulin administration so unable to make changes prior to doses given * BSGs, including fasting, have been above goal; will plan to increase basal dose dose since current bolus insulin already fairly aggressive 02/18 * See progress note from 02/03/19 for more background info, in short: * Pt receiving SQ basal bolus insulin regimen for hyperglycemia secondary to baseline DM (outpatient regimen on hold),stress/infection (currently on cipro PO and daptomycin IV), and on chronic prednisone 5 mg daily * Patient is currently receiving an average of 56 units of insulin per day * 15 units of basal insulin * 41 units of prandial/correctional insulin * BSGs ranging 114 - 235 mg/dl over the past 24hrs * Changes needed to insulin regimen: * AM Fasting BSG = 150 mg/dl. This is slightly above goal range for patient based on inpatient targets and co-morbidities. The patient has been fluctuating between 15 - 20 units daily. The patient may require a total daily dose of 18 units/day. I suspect that maybe the Levemir is "wearing off" as the patient's blood sugars rise throughout the day then decrease overnight. Add a nighttime dose of Levemir - can d/c tomorrow if not working for the patient. * Post-prandial BSGs are elevated. Tighten CF as CR already tight. * Total daily dose = ~50 units. Patient's regimen is very bolus heavy currently has Levemir dose is limited by fasting blood sugars. That is okay since some patient's require more Novolog. PLAN FOR INPATIENT GLYCEMIC CONTROL: * Basal insulin: increase * Levemir 5 units with dinner today (to total 25 units today), then * Levemir 25 units qAM * Bolus insulin: no change * NovoLog per scale ACHS or Q6hrs while NPO * Goal Range: Low 100 mg/dL - High 140 mg/dL * Correction Factor: 18 mg/dL/unit * Nutritional / Prandial insulin per carb ratio of 1 unit per 5 grams CHO consumed DISCHARGE RECOMMENDATIONS: * Please refer to note from 02/07
--- NOTE | 2019-02-19 15:13 | Infectious Disease Progress Nt ---
Date of Service February 19, 2019 Assessment & Plan (1) Osteomyelitis of toe of right foot: Patient with osteomyelitis of the toe, undergoing medical management because of inability to proceed with surgery. Patient to continue on daptomycin and ciprofloxacin to complete 6 weeks of therapy as daptomycin now being covered by SNF. Will follow while in hospital. (2) MRSA (methicillin resistant Staphylococcus aureus) infection: (3) Serratia infection: Subjective Patient seen in follow-up for osteomyelitis of the toe. Appears comfortable, offers no complaints. Appears that [facility]. Tolerating ciprofloxacin, no evidence of arrhythmia. Review of Systems Review of Systems: Unobtainable due to cognitive status Physical Exam Constitutional: WD/WN, vitals as above comfortable; no acute distress Eyes: PERRL, conjunctivae normal, anicteric sclerae ENMT: external ear and nose normal, oropharynx normal Neck: trachea midline, no thyromegaly neck nontender Respiratory: normal respiratory effort, lungs clear to auscultation normal percussion; does not use accessory muscles Cardiovascular: Rate/Rhythm: regular rate and regular rhythm Heart Sounds: normal S1 and normal S2; no gallop, no murmur and no cardiac rub Vessels: normal peripheral pulses; no JVD Gastrointestinal (Abdomen): normal bowel sounds, soft, nontender, no hepatosplenomegaly Musculoskeletal: no cyanosis or clubbing, extremities motor strength 5/5 Spine: thoracic spine normal to inspection and lumbar spine normal to inspection; no cervical spinal tenderness Skin: no rashes, warm and dry normal turgor and + wound (Toes appear unchanged); no lesions Neurologic: patellar DTR's 2+ bilat, sensation intact no focal motor deficits Psychiatric: A+Ox3, euthymic affect Orientation: cooperative Lymphatic: no cervical or axillary lymphadenopathy no inguinal lymphadenopathy Results & Data Vital Signs (Past 12 Hours) Vital Signs Temp Pulse Resp BP Pulse Ox 02/19/19 08:13 36.4 C L 69 18 95/47 L 98 Laboratory Results BMP 02/19/19 06:41 Creatinine 0.88 Diagnostic Findings Microbiology 02/05/19 18:20 Urine,Indwelling Cath Urine Culture - Final Yeast not Katie albicans PG Care Time/CCT Total # of Minutes Spent Total Time Spent with Patient: Total time spent is greater than 50% in coordination of care (as documented) at patient's floor/unit and/or counseling patient:
[2019-02-19] MEDS ORDERED: INSULIN DETEMIR FLEXPEN/FLEX TOUCH 100 UNITS/ML 3ML SC ONE (16:30)
[2019-02-19] MEDS: ENOXAPARIN INJ 40 MG/0.4 ML SYR SQ SCH (18:11)
[2019-02-19] MEDS: TOLTERODINE TARTRATE 1 MG TAB PO SCH (21:03)
[2019-02-20 06:11] LABS: Creatinine Clr Calc Pharmacy 33.8 ml/min; Est GFR (African American) 62.9; Est GFR (Non-African American) 54.3
[2019-02-20] MEDS: CIPROFLOXACIN 250 MG TAB PO SCH ×2 (08:36→22:00)
[2019-02-20] MEDS: LORATADINE 10 MG TAB PO SCH (08:36)
[2019-02-20] MEDS: ASPIRIN 81 MG ECTAB PO SCH (08:36)
[2019-02-20] MEDS: QUETIAPINE FUMARATE 25 MG TABLET PO SCH ×2 (08:36→22:02)
[2019-02-20] MEDS: DOCUSATE SODIUM/SENNA 50/8.6MG TAB PO SCH (08:37)
[2019-02-20] MEDS: CHOLECALCIFEROL (VITAMIN D) 400 UNITS TABLET PO SCH (08:37)
[2019-02-20] MEDS: GABAPENTIN 100 MG CAP PO SCH ×2 (08:37→19:00)
[2019-02-20] MEDS: MULTIVITAMIN TAB PO SCH (08:37)
[2019-02-20] MEDS: carvediloL 12.5 MG TAB PO SCH ×2 (08:37→19:01)
[2019-02-20] MEDS: predniSONE 5 MG TAB PO SCH (08:37)
[2019-02-20] MEDS: POLYETHYLENE (MIRALAX) 17 GM PACK PO SCH ×2 (08:38→22:00)
[2019-02-20] MEDS: DOCUSATE SODIUM 100 MG CAP PO SCH ×2 (08:38→22:00)
[2019-02-20] MEDS: INSULIN ASPART 100 UNITS/ML 3 ML PEN SC SCH ×4 (09:20→22:03)
[2019-02-20] MEDS: INSULIN DETEMIR FLEXPEN/FLEX TOUCH 100 UNITS/ML 3ML SC SCH (09:20)
[2019-02-20] MEDS: DAPTOmycin 300 MG in SYRINGE 0 ML IV SCH (09:23)
--- NOTE | 2019-02-20 15:08 | Pharmacy Report ---
Pharmacy Glycemic Short Note 2 - Date of Service February 20, 2019 - Glycemic Short BSG Results (Last 24 hours): 02/19/19 02/19/19 02/20/19 16:58 20:46 08:02 POC Glucose 177 H 221 H 165 H 02/20/19 12:04 POC Glucose 184 H OUTPATIENT ANTIDIABETIC REGIMEN: * Insulin detemir (Levemir) 20 units SQ HS * NovoLog 7 units SQ TIDM * A1c = 8.4 % 01/22/19 ASSESSMENT: 02/20: * Patient received total 69 units insulin yesterday- 25 units basal and 44 units bolus. * Fasting BSG was better today than yesterday but still not at goal. Lunch BSG today was also better compared to yesterday but also not at goal. * Therefore, Novolog CF was tightened slightly today with lunch. * Patient may need more Levemir in the morning if fasting continues to be high tomorrow. Or she may need an additional small dose at HS. 02/19 * Ms. Liu received 20 units of basal and 40 units of bolus insulin yesterday * Her BSGs today were recorded after insulin administration so unable to make changes prior to doses given * BSGs, including fasting, have been above goal; will plan to increase basal dose dose since current bolus insulin already fairly aggressive 02/18 * See progress note from 02/03/19 for more background info, in short: * Pt receiving SQ basal bolus insulin regimen for hyperglycemia secondary to baseline DM (outpatient regimen on hold),stress/infection (currently on cipro PO and daptomycin IV), and on chronic prednisone 5 mg daily * Patient is currently receiving an average of 56 units of insulin per day * 15 units of basal insulin * 41 units of prandial/correctional insulin * BSGs ranging 114 - 235 mg/dl over the past 24hrs * Changes needed to insulin regimen: * AM Fasting BSG = 150 mg/dl. This is slightly above goal range for patient based on inpatient targets and co-morbidities. The patient has been fluctuating between 15 - 20 units daily. The patient may require a total daily dose of 18 units/day. I suspect that maybe the Levemir is "wearing off" as the patient's blood sugars rise throughout the day then decrease overnight. Add a nighttime dose of Levemir - can d/c tomorrow if not working for the patient. * Post-prandial BSGs are elevated. Tighten CF as CR already tight. * Total daily dose = ~50 units. Patient's regimen is very bolus heavy currently has Levemir dose is limited by fasting blood sugars. That is okay since some patient's require more Novolog. PLAN FOR INPATIENT GLYCEMIC CONTROL: * Basal insulin: continued * Levemir 25 units qAM * Bolus insulin: tightened CF * NovoLog per scale ACHS or Q6hrs while NPO * Goal Range: Low 100 mg/dL - High 140 mg/dL * Correction Factor: 15 mg/dL/unit * Nutritional / Prandial insulin per carb ratio of 1 unit per 5 grams CHO consumed DISCHARGE RECOMMENDATIONS: * Please refer to note from 02/07
[2019-02-20] MEDS: ENOXAPARIN INJ 40 MG/0.4 ML SYR SQ SCH (19:02)
--- NOTE | 2019-02-20 21:18 | Hospitalist Progress Note ---
Date of Service February 20, 2019 Assessment & Plan (1) Osteomyelitis: Nonhealing bilateral diabetic toe infection During recent admission, x-ray showed osteomyelitis the right great toe; no signs of osteomyelitis on x-ray of left great toe; unable to obtain MRI due to pacemaker Had been on doxycycline per wound care center; patient was evaluated by ID during recent admission who advised to continue doxycycline; patient completed course on 01/26 Wound culture from 01/16 grew MRSA and Serratia Per daughter, patient has been evaluated by orthopedics and vascular surgery as an outpatient for possible amputation however given her underlying severe PAD/advanced age: High risk for non-healing surgical wound Family agreeable for conservative treatment with IV antibiotic CT scans of bilateral great toes showing signs of osteomyelitis Consulted infectious disease: Recommends patient should continue with IV daptomycin and p.o. ciprofloxacin for total 6 weeks therapy / now considering other options as pt has difficulty w/ placement d/t daptomycin cost - Plan for Dalvac (2 doses, first dose on 02/22/2019) While inpt, Oral ciprofloxacin resumed, monitor QTC; EKG shows Qtc remains in ~500 , no worsening noted Patient's daughter Katey Leonardo ( POA ) : Phone number [phone] wants her mother to complete IV antibiotic as recommended by ID Dr Curry Difficulty w/ placement Eventually able to return back to [facility] - plan to receive IV Abx (Dalvace) on 02/22 and 03/01 at [facility] (2) Diabetes mellitus, type 2: Patient presented from [facility] with hypoglycemia Recent admission to [facility] 01/21 through 01/24 for hypoglycemia and management of right great toe osteomyelitis OUTPATIENT ANTIDIABETIC REGIMEN: Insulin detemir (Levemir) 20 units SQ HS NovoLog 7 units SQ TIDM A1c = 8.4 % 01/22/19 Developed Hypoglycemia in the 20's Basal insulin dose reduced to 12 units at bedtime started on Very conservative sliding scale to prevent hypoglycemia pt been having intermittently Hyperglycemic episodes evening BSG > 300 Appreciate pharmacy recommendation to adjust/reduce insulin regimen PLAN FOR DISCHARGE: A1c = 8.4% on 01/22/19 Patient admitted with recurrent hypoglycemia, even after insulin doses reduced on last discharge. Hypoglycemia is thought to be due to poor appetite, which has improved Recommend the following changes: May resume Levemir 20 units qHS as long as appetite is stable. If appetite is poor, only give 15 units SQ qHS Novolog 4 units with meals (hold if patient consumes less than 50% of meal) + conservative sliding scale Blood Sugar 70-150 administer 0 units Blood Sugar 151-200 administer 1 units Blood Sugar 201-250 administer 3 units Blood Sugar 251-300 administer 5 units Blood Sugar 301-350 administer 7 units Blood Sugar 351-400 administer 9 units Blood Sugar >400 administer 11 units and call MD (3) Ischemic cardiomyopathy: stable (4) ICD (implantable cardioverter-defibrillator) in place: Echo 09/2018 EF 30 to 35% remains euvolemic Continue diuretics and aspirin Continue Coreg with holding parameters PROLONGED QTC Continue p.o. ciprofloxacin with daily EKG monitoring while inpt (5) PAD (peripheral artery disease): Severe peripheral vascular disease leading to nonhealing infected diabetic toe wound/leading to osteomyelitis Ultrasound-guided peripheral line placed, plan to use it for 2 more doses of IV antibiotic (Dalvace) at [facility] as outpt (6) PMR (polymyalgia rheumatica): Continue chronic prednisone Anemia Normocytic, most likely secondary to chronic disease Current hemoglobin 9.5, will continue to monitor (7) Dementia: Very pleasantly demented, Very cooperative, comfortable on current setting No agitation noted (8) Pacemaker: stable (9) DVT prophylaxis: SQ Lovenox Disposition Plan is to discharge patient back to [facility]. IV antibiotics for toe osteomyelitis Subjective No acute events overnight, patient is sitting up in the chair, in no acute distress, eating, having good appetite. Family (pt's son and his ) present in the room, say she eats here more than usual. Discussed with them the plan for discharge, aware about the appointment on (for Dalvac). Patient denies any pain, or discomfort, denies any fevers or chills, however due to dementia patient does not answer all the questions appropriately. Review of Systems Review of Systems: Unobtainable due to mental health condition (dementia) Constitutional: no fever and no chills Respiratory: no cough and no dyspnea Cardiovascular: no chest pain, no palpitations and no edema Gastrointestinal: no abdominal pain, no nausea and no vomiting Physical Exam Physical Exam: Elderly female sitting up in the chair, in NAD, eating Constitutional: well developed and well nourished; no acute distress Eyes: PERRL, conjunctivae normal, anicteric sclerae ENMT: external ear and nose normal, oropharynx normal Neck: trachea midline, no thyromegaly Respiratory: normal respiratory effort, lungs clear to auscultation Cardiovascular: RRR, no murmur, no edema Extremities: no edema Chest (Breasts): Chest: normal inspection of chest Gastrointestinal (Abdomen): Inspection/Auscultation: abdomen normal to inspection and normal bowel sounds; abdomen not distended Percussion/Palpation: abdomen soft; abdomen nontender and no guarding Musculoskeletal: no cyanosis or clubbing, extremities motor strength 5/5 Head/Neck/Chest: normocephalic, head atraumatic and neck supple Extremities: + extremities abnormal to inspection (Great toes wound, bandage applied) Skin: + wound (Great toes, as above); no rashes Neurologic: PERRL, EOMI, accommodation nl, no face palsy, no dysarthria moves all extremities Psychiatric: Orientation: alert Speech: normal rate/rhythm/volume of speech Affect: euthymic affect pt does not answer questions appropriately (d/t dementia) Results & Data Vital Signs (Past 12 Hours) Vital Signs Temp Pulse Resp BP Pulse Ox 02/20/19 15:16 36.6 C 77 16 122/86 100 (1) Osteomyelitis Osteomyelitis type: unspecified type Osteomyelitis location: foot Laterality: right Qualified Code(s): M86.9 - Osteomyelitis, unspecified
[2019-02-20] MEDS: TOLTERODINE TARTRATE 1 MG TAB PO SCH (22:01)
[2019-02-21 06:05] LABS: Creatinine Clr Calc Pharmacy 42.3 ml/min; Est GFR (African American) 82.4; Est GFR (Non-African American) 71.1
[2019-02-21] MEDS: INSULIN ASPART 100 UNITS/ML 3 ML PEN SC SCH ×2 (08:42→13:20)
[2019-02-21] MEDS: POLYETHYLENE (MIRALAX) 17 GM PACK PO SCH (08:48)
[2019-02-21] MEDS: QUETIAPINE FUMARATE 25 MG TABLET PO SCH (08:49)
[2019-02-21] MEDS: CHOLECALCIFEROL (VITAMIN D) 400 UNITS TABLET PO SCH (08:49)
[2019-02-21] MEDS: DOCUSATE SODIUM/SENNA 50/8.6MG TAB PO SCH (08:49)
[2019-02-21] MEDS: GABAPENTIN 100 MG CAP PO SCH (08:50)
[2019-02-21] MEDS: predniSONE 5 MG TAB PO SCH (08:50)
[2019-02-21] MEDS: ASPIRIN 81 MG ECTAB PO SCH (08:50)
[2019-02-21] MEDS: LORATADINE 10 MG TAB PO SCH (08:50)
[2019-02-21] MEDS: MULTIVITAMIN TAB PO SCH (08:50)
[2019-02-21] MEDS: carvediloL 12.5 MG TAB PO SCH (08:50)
[2019-02-21] MEDS: CIPROFLOXACIN 250 MG TAB PO SCH (08:51)
[2019-02-21] MEDS: DOCUSATE SODIUM 100 MG CAP PO SCH (08:51)
[2019-02-21] MEDS: INSULIN DETEMIR FLEXPEN/FLEX TOUCH 100 UNITS/ML 3ML SC SCH (08:52)
[2019-02-21] MEDS: DAPTOmycin 300 MG in SYRINGE 0 ML IV SCH (10:50)
--- NOTE | 2019-02-21 11:34 | Discharge Summary ---
Date of Service February 21, 2019 Admission HPI Per Admitting Provider Pt admitted on 01/31/2019 78-year-old female who presents the ED from [facility] for evaluation of hypoglycemia. Patient recently admitted to [facility] 01/21 through 01/24 for hypoglycemia and also management of right great toe osteomyelitis. Patient also has a wound to the left great toe, x-ray was negative for osteomyelitis during previous admission. MRI was unable to be obtained as patient has pacemaker. Wound culture from 01/16 grew MRSA and Serratia. Per sensitivities, patient was placed on doxycycline. She was also evaluated by ID. She completed doxycycline therapy on 01/26. Per patient's daughter, she has been evaluated by orthopedics as well as by vascular surgery as an outpatient and amputation as well as vascular intervention was deferred given her underlying severe PAD. At the time of patient's discharge, NovoLog and Levemir doses were reduced with instructions to hold if patient was not eating. Per discussion with sn[facility] staff, patient has been having episodes of hypoglycemia for the past several days. Blood sugars are running in the 60s to 70s yesterday and therefore patient did not have any NovoLog nor her Levemir. On 01/29, Levemir dose was reduced further. This morning, patient's blood sugar was found to be 451. She received 7 units of NovoLog and shortly after, there is reported lethargy. Blood sugar was checked and was in the 20s. Due to altered mental status, patient was unable to take anything p.o. EMS was called and patient was brought to the ED for further evaluation. Per snf staff, patient continues to have a very poor appetite and eats very little. In the ED, patient's blood sugar was found to be 25. She received 2 doses of IV D50. Blood sugar improved to 317 and then went to 147. She was then placed on a D10 drip. Admission Exam Per Admitting Provider Constitutional: WD/WN, vitals as above Eyes: PERRL, conjunctivae normal, anicteric sclerae ENMT: external ear and nose normal, oropharynx normal Respiratory: normal respiratory effort, lungs clear to auscultation Cardiovascular: Rate/Rhythm: regular rate and regular rhythm Vessels: normal peripheral pulses Extremities: no edema Gastrointestinal (Abdomen): normal bowel sounds, soft, nontender, no hepatosplenomegaly Musculoskeletal: no cyanosis or clubbing, extremities motor strength 5/5 Skin: no rashes, warm and dry Wounds noted to: Lateral base of right great toe and left lateral great toe; minimal surrounding erythema, no significant drainage Neurologic: PERRL, EOMI, accommodation nl, no face palsy, no dysarthria Psychiatric: Orientation: alert; + not oriented to person, + not oriented to place and + not oriented to time Pleasantly confused, answers minimal questions Principal Diagnosis Nonhealing diabetic toe infection/right great toe osteomyelitis Type 2 diabetes on insulin Dementia Discharge Exam Elderly female lying in bed, in no acute distress Constitutional well developed and well nourished; no acute distress Eyes PERRL, conjunctivae normal, anicteric sclerae ENMT external ear and nose normal, oropharynx normal Neck trachea midline, no thyromegaly Respiratory normal respiratory effort, lungs clear to auscultation Cardiovascular RRR, no murmur, no edema Extremities: no edema Chest (Breasts) Chest: normal inspection of chest Gastrointestinal (Abdomen) Inspection/Auscultation: abdomen normal to inspection and normal bowel sounds; abdomen not distended Percussion/Palpation: abdomen soft; abdomen nontender and no guarding Musculoskeletal no cyanosis or clubbing, extremities motor strength 5/5 Head/Neck/Chest: normocephalic, head atraumatic and neck supple Extremities: + extremities abnormal to inspection (Great toes wound, bandage applied) Skin + wound (Great toes, as above); no rashes Neurologic PERRL, EOMI, accommodation nl, no face palsy, no dysarthria moves all extremities Psychiatric Orientation: alert Speech: normal rate/rhythm/volume of speech Affect: euthymic affect Does not answer questions appropriately due to dementia Discharge Data Allergies Allergy/AdvReac Type Severity Reaction Status Date / Time Bactrim Allergy Unknown . Verified 09/05/17 16:36 lisinopril Allergy Unknown Unknown Verified 01/31/19 09:59 Penicillins Allergy Unknown ON Verified 01/31/19 09:59 ELMCROFT LIST sulfamethoxazole Allergy Unknown ON Verified 01/31/19 09:59 ELMCROFT LIST trimethoprim Allergy Unknown ON Verified 01/31/19 09:59 ELMCROFT LIST atorvastatin AdvReac Intermediate MUSCLE PAIN Verified 01/31/19 09:59 capsaicin AdvReac Intermediate N/V Verified 01/31/19 09:59 diclofenac AdvReac Intermediate N/V Verified 01/31/19 09:59 Diclopak AdvReac Intermediate N/V Verified 09/05/17 13:27 rosuvastatin AdvReac Intermediate MUSCLE PAIN Verified 01/31/19 09:59 fenofibrate AdvReac Mild SORE MOUTH Verified 01/31/19 09:59 Consultations 01/31/19 12:52 ED Decision to Admit Stat 01/31/19 16:08 Consult Case Management - Discharge Planning Routine Consult Infectious Diseases Routine Consult Orthopedic Surgery Routine Ordered Studies 01/31/19 16:08 CT foot LT wo con Routine CT foot RT wo con Routine Laboratory Results 02/19/19 02/18/19 02/18/19 Range/Units 06:41 20:42 17:07 Creatinine 0.88 (0.6-1.2) mg/dl Est Cr Clr Drug Dosing 38.5 ml/min Est GFR ( Amer) 73.5 Est GFR (Non-Af Amer) 63.4 POC Glucose 127 H 171 H (70-99) 02/18/19 Range/Units 12:07 Creatinine (0.6-1.2) mg/dl Est Cr Clr Drug Dosing ml/min Est GFR ( Amer) Est GFR (Non-Af Amer) POC Glucose 204 H (70-99) Hospital Course (1) Osteomyelitis: Nonhealing bilateral diabetic toe infection During recent admission, x-ray showed osteomyelitis the right great toe; no sign s of osteomyelitis on x-ray of left great toe; unable to obtain MRI due to pacemaker Had been on doxycycline per wound care center; patient was evaluated by ID during recent admission who advised to continue doxycycline; patient completed course on 01/26 Wound culture from 01/16 grew MRSA and Serratia Per daughter, patient has been evaluated by orthopedics and vascular surgery as an outpatient for possible amputation however given her underlying severe PAD/advanced age: High risk for non-healing surgical wound Family agreeable for conservative treatment with IV antibiotic CT scans of bilateral great toes showing signs of osteomyelitis Consulted infectious disease: Recommends patient should continue with IV daptomycin and p.o. ciprofloxacin for total 6 weeks therapy / now considering other options - plan to switch to Dalvance as outpt / as pt has difficulty w/ placement d/t daptomycin cost while inpt oral ciprofloxacin resumed, monitor QTC; EKG shows Qtc remains in ~500 , no worsening noted Unable to have a PICC line/midline placed secondary to severe peripheral vascular disease IV team able to put an ultrasound-guided peripheral line Patient's daughter Katey Leonardo ( POA ): Phone number [phone] wants her mother to complete IV antibiotic as recommended by ID Dr. Antoinette Herrera w/ placement Plan to d/c back to [facility], and will receive Dalvance as outpt at [facility] (2) Diabetes mellitus, type 2: Patient presented from [facility] with hypoglycemia Recent admission to [facility] 01/21 through 01/24 for hypoglycemia and management of right great toe osteomyelitis OUTPATIENT ANTIDIABETIC REGIMEN: Insulin detemir (Levemir) 20 units SQ HS NovoLog 7 units SQ TIDM A1c = 8.4 % 01/22/19 Developed Hypoglycemia in the 20's Basal insulin dose reduced to 12 units at bedtime started on Very conservative sliding scale to prevent hypoglycemia pt been having intermittently Hyperglycemic episodes evening BSG > 300 Appreciate pharmacy recommendation to adjust/reduce insulin regimen PLAN FOR DISCHARGE: A1c = 8.4% on 01/22/19 Patient admitted with recurrent hypoglycemia, even after insulin doses reduced on last discharge. Hypoglycemia is thought to be due to poor appetite, which has improved Recommend the following changes: May resume Levemir 20 units qHS as long as appetite is stable. If appetite is poor, only give 15 units SQ qHS Novolog 4 units with meals (hold if patient consumes less than 50% of meal) + conservative sliding scale Blood Sugar 70-150 administer 0 units Blood Sugar 151-200 administer 1 units Blood Sugar 201-250 administer 3 units Blood Sugar 251-300 administer 5 units Blood Sugar 301-350 administer 7 units Blood Sugar 351-400 administer 9 units Blood Sugar >400 administer 11 units and call MD (3) Ischemic cardiomyopathy: stable (4) ICD (implantable cardioverter-defibrillator) in place: Echo 09/2018 EF 30 to 35% remains euvolemic Continue diuretics and aspirin Continue Coreg with holding parameters PROLONGED QTC Continue p.o. ciprofloxacin with close EKG monitoring while inpt (5) PAD (peripheral artery disease): Severe peripheral vascular disease leading to nonhealing infected diabetic toe wound/leading to osteomyelitis Ultrasound-guided peripheral line placed, good for the duration of abx (6) PMR (polymyalgia rheumatica): Continue chronic prednisone Anemia Normocytic, most likely secondary to chronic disease most recent hemoglobin 9.5, will continue to monitor (7) Dementia: Usually very cooperative, comfortable on current setting (8) Pacemaker: stable (9) DVT prophylaxis: SQ Lovenox Disposition Plan is to discharge patient back to [facility], plan to finish IV antibiotics for toe osteomyelitis Total Time Total Time Spent Total Time Spent (In Minutes): 40 Total Time Includes: Examination of the Patient, Discharge Planning, Medication Reconciliation and Communication With Other Providers Discharge Plan Discharge Items Patient Disposition: Personal Long Term Reason For Visit: HYPOGLYCEMIA Discharge Diagnosis: Nonhealing diabetic toe infection/right great toe osteomyelitis Type 2 diabetes on insulin Dementia Activity: As commented below Activity Comment: as tolerated Non-emergency contact: Primary Care Provider Call non-emergency contact if: you have any medication questions Follow-up/Referrals: Leonidas Baez [Primary Care Provider] - Diet: Carb Consistent or DM2 and Heart Healthy Addtl Attending Provider Instructions: INSULIN REGIMEN CHANGE : A1c = 8.4% on 01/22/19 INSULIN DOSE REDUCED TO PREVENT HYPOGLYCEMIA Levemir 20 units qHS Novolog 4 units with meals (hold if no/poor po intake) + conservative sliding scale Blood Sugar 70-150 administer 0 units Blood Sugar 151-200 administer 1 units Blood Sugar 201-250 administer 3 units Blood Sugar 251-300 administer 5 units Blood Sugar 301-350 administer 7 units Blood Sugar 351-400 administer 9 units Blood Sugar >400 administer 11 units and call Antibiotics: 1. Intravenous daptomycin 300 mg daily-for 4 weeks(right great toe osteomyelitis) 2. Oral ciprofloxacin to 250 mg 1 tablet twice daily-for 4 weeks Do not take terbinafine/Cymbalta-while taking antibiotic -oral ciprofloxacin Can cause significant EKG change leading to cardiac arrhythmia Cymbalta can be resumed once p.o. ciprofloxacin course is complete Patient does not need to be on terbinafine. ------ Pt received Ciprofloxacin and Daptomycin while inpatient, received the last dose today (02/21/2019) ------ ------ She will receive Dalvance tomorrow on 02/22 and next week on 03/01 to finish her antibiotic course ----- Pending Studies at Discharge: Yes Studies:: Check EKG weekly while on Ciprofloxacin, to monitor for QTc prolongation (~500ms unchanged) Stand-Alone Forms: My [employer], Smoking Cessation Skilled Items Patient informed of condition?: Yes DNR: Yes Discharge Level of Care: Acute rehab Communicable Disease: No Discharge Prognosis: Stable Lines: None Urinary Catheter: No Medications and DC Order Prescriptions: New ciprofloxacin HCl 250 mg Tablet 250 mg PO Q12 28 Days Qty: 56 RF: 0 Continued hvienqzntc-wskupwgobh-bbo-cod [id number] mg capsule 1 cap PO Q4H PRN (Reason: Migraine Headache) RF: 0 tolterodine [Detrol] 1 mg Tablet 1 mg PO HS RF: 0 carvedilol 12.5 mg Tablet 12.5 mg PO BID RF: 0 ranitidine HCl 150 mg Tablet 150 mg PO BID RF: 0 gabapentin 100 mg Capsule 100 mg PO BID RF: 0 fluticasone propionate 50 mcg/actuation [place],Suspension 1 spray INTRANASAL QAM RF: 0 aspirin [Aspirin Low Dose] 81 mg Tablet,Delayed Release (Dr/Ec) 81 mg PO QAM RF: 0 cholecalciferol (vitamin D3) 400 unit Capsule 400 unit PO QAM RF: 0 melatonin 3 mg Tablet 3 mg PO HS RF: 0 losartan 25 mg Tablet 25 mg PO QAM RF: 0 quetiapine 50 mg tablet 50 mg PO QAM RF: 0 quetiapine 50 mg tablet 75 mg PO HS RF: 0 One-A-Day Women's 50 Plus 400-20 mcg Tablet 1 tab PO QAM RF: 0 lorazepam 0.5 mg tablet 0.5 mg PO TID PRN (Reason: Anxiety) RF: 0 docusate sodium 100 mg Capsule 100 mg PO BID RF: 0 prednisone 5 mg Tablet 5 mg PO QAM RF: 0 nystatin 100,000 unit/gram Powder 1 applic TOPICAL DIRECTED RF: 0 Changed Novolog Flexpen U-100 Insulin 100 unit/mL (3 mL) insulin pen 4 unit subcut TID Qty: 0 RF: 0 Levemir FlexTouch U-100 Insuln 100 unit/mL (3 mL) Insulin Pen 15 unit SUBCUT HS Qty: 0 RF: 0 Discontinued loratadine 10 mg Tablet 10 mg PO QAM RF: 0 duloxetine 30 mg Capsule,Delayed Release(Dr/Ec) 30 mg PO QAM RF: 0 spironolactone 25 mg tablet 37.5 mg PO QAM RF: 0 terbinafine HCl 250 mg tablet 250 mg PO DAILY RF: 0 furosemide 40 mg tablet 40 mg PO QAM RF: 0 Discharge Orders: Discharge Order (Routine); Ordered 02/21/19 Ordered By: Juan Joaquin Admission Data Admit Date/Time: 01/31/19 18:20 Attending Provider: Juan Joaquin Admit Provider: Keysha Chavarria Primary Care Provider: Leonidas Baez Other Providers: Keysha Chavarria ; Yudith Daniels ; Varun García ; Awa Iqbal ; [place] ; [facility] Ortega [facility] [place] ; [facility] ; [facility] ; Piper Jeong
--- NOTE | 2019-02-23 08:45 | Coding Query ---
MALNUTRITION To promote full compliance with coding requirements relating to patient care, physician participation is requested in all cases of rolled ham lacer uncertainty. Please assist us with the question(s) below: Please place an X within the parenthesis (x). If other, please document: "Moderate to Severe Malnutrition" is documented in this record on Addendum of Progress Note 02/05/19. If possible, please check the box that provides a more specific diagnosis: ( x) Likely Moderate malnutrition ( ) Likely Severe malnutrition ( ) Likely Severe protein calorie malnutrition ( ) Other (please specify): Was this diagnosis present on admission? Please place an X within the parenthesis (x). ( ) Present on admission ( ) Not present on admission ( ) Unable to be clinically determined Thank you Katherine Brown [facility]
== END 2019-02-21 16:20 | disposition home health service (06) | DRG 300 ==
LOC: 2N 09:05 → ED 09:05 → 2N 15:42 → SUATTDRO 18:20 → 3N 02-07 19:46

== ENCOUNTER 2020-10-05 04:09 | Inpatient (IN) ==
[2020-10-05] MEDS ORDERED: LORazepam 2 MG/ML VIAL (IM USE) IM STA (04:19)
[2020-10-05] MEDS ORDERED: SODIUM CHLORIDE 0.9% 1000ML 1,000 ML IV SCH ×2 (04:30→10:01)
[2020-10-05 04:52] LABS: Basophils # (auto) 0.01 K/uL (0-0.2); Basophils % (auto) 0.1 %; Eosinophils # (auto) 0.02 K/uL (0-0.5); Eosinophils % (auto) 0.1 %; Hemoglobin 11.1 g/dL (12.0-16.0); Immature Granulocytes # (auto) 0.03 K/uL (0.00-0.02); Immature Granulocytes % (auto) 0.2 %; Lymphocytes % (auto) 9.5 %; Mean Corpuscular Hemoglobin 27.3 pg (25-34); Mean Corpuscular Hgb Conc 31.7 g/dL (32-36); Mean Corpuscular Volume 86.2 fL (80-100); Mean Platelet Volume 10.7 fL (7.4-10.4); Monocytes # (auto) 0.98 K/uL (0.11-0.59); Monocytes % (auto) 7.2 %; Neutrophils # (auto) 11.32 K/uL (1.4-6.5); Neutrophils % (auto) 82.9 %; Platelet Count 259 K/uL (130-400); RDW Coefficient of Variation 18.7 % (11.5-14.5); RDW Standard Deviation 59.3 fL (36.4-46.3); Red Blood Count 4.06 M/uL (4.2-5.4); White Blood Count 13.66 K/uL (4.8-10.8)
[2020-10-05] MEDS ORDERED: LORazepam 1 MG/2 ML VIAL IV STA (05:02)
[2020-10-05] MEDS ORDERED: VANCOMYCIN HCL 1,250 MG in SODIUM CHLORIDE 0.9% 500 ML IV ONE (05:03)
[2020-10-05] MEDS ORDERED: CEFEPIME 2,000 MG/20 ML VIAL IV STA (05:03)
[2020-10-05] MEDS ORDERED: VANCOMYCIN CONSULT ACTIVE PRN (05:03)
[2020-10-05 05:10] LABS: Albumin Level 3.2 gm/dl (3.4-5.0); BUN Creatinine Ratio 25.9 (10-20); Calcium 9.5 mg/dl (8.5-10.1); Creatinine Clr Calc Pharmacy 24.7 ml/min; Est GFR (African American) 39.3 ml/min; Est GFR (Non-African American) 33.9 ml/min; Potassium 4.2 mmol/L (3.5-5.1)
--- NOTE | 2020-10-05 05:11 | Emergency Department Note ---
History of Present Illness General Chief complaint: Fever Stated complaint: FEVER/INFECTED WOUND ON TOE Time Seen by Provider: 10/05/20 04:14 Source: EMS, RN notes reviewed and old records reviewed Mode of arrival: EMS Limitations: altered mental status History of Present Illness Provider complaint: Fever, foot infection Onset (ago): unknown Maximum Pain Intensity: 2 This is a 80-year-old female brought in by [facility] facility due to concern for fever and possible evolving foot infection. Patient brought in by EMS. Patient does have a history of dementia and is very agitated at this time. Patient did require Ativan in order to help facilitate patient staying in bed, being placed on a monitor, IV established and labs drawn. No other information was available from the facility. Due to reported fever, tachycardia noted here, and concern for evolving foot infection, patient started as a sepsis evaluation. Patient unable to provide any additional history. Medication list does show patient is on chronic prednisone for PMR. Pt seen during a time of high acuity and national emergency pandemic while wearing PPE. Home Medications Medication Instructions Recorded Confirmed Type aspirin [Aspirin Low Dose] 81 mg PO QAM 12/22/17 10/05/20 History carvedilol 12.5 mg PO BID 12/22/17 10/05/20 History fluticasone propionate 1 spray INTRANASAL QAM 12/22/17 10/05/20 History tolterodine [Detrol] 1 mg PO HS 12/22/17 10/05/20 History losartan 25 mg PO QAM 09/10/18 10/05/20 History prednisone 5 mg PO QAM 12/22/18 10/05/20 History Levemir FlexTouch U-100 Insuln See Rx Instructions .ROUTE .COMPLEX 03/28/20 10/05/20 History furosemide 20 mg PO QAM 03/28/20 10/05/20 History omeprazole 20 mg PO DAILY 03/28/20 10/05/20 History potassium chloride 10 meq PO BID 03/28/20 10/05/20 History multivitamin [Daily-Erlinda] 1 tab PO DAILY 04/02/20 10/05/20 History cephalexin 500 mg PO BID 10/05/20 10/05/20 History cholecalciferol (vitamin D3) 10 mcg PO QAM 10/05/20 10/05/20 History [Vitamin D3] metolazone 2.5 mg PO 3XWK 10/05/20 10/05/20 History Allergies Allergy/AdvReac Type Severity Reaction Status Date / Time Bactrim Allergy Unknown . Verified 09/05/17 16:36 lisinopril Allergy Unknown Unknown Verified 10/05/20 07:19 Penicillins Allergy Unknown ON Verified 10/05/20 07:19 ELMCROFT LIST sulfamethoxazole Allergy Unknown ON Verified 10/05/20 07:19 ELMCROFT LIST trimethoprim Allergy Unknown ON Verified 10/05/20 07:19 ELMCROFT LIST atorvastatin AdvReac Intermediate MUSCLE PAIN Verified 10/05/20 07:19 capsaicin AdvReac Intermediate N/V Verified 10/05/20 07:19 diclofenac AdvReac Intermediate N/V Verified 10/05/20 07:19 Diclopak AdvReac Intermediate N/V Verified 09/05/17 13:27 rosuvastatin AdvReac Intermediate MUSCLE PAIN Verified 10/05/20 07:19 fenofibrate AdvReac Mild SORE MOUTH Verified 10/05/20 07:19 Past Med/Surg History Medical History RADHA inhibitor intolerance Carotid arterial disease Cholelithiasis Chronic systolic heart failure Coronary artery disease "s/p MD" Dementia Diabetes mellitus, type 2 GERD (gastroesophageal reflux disease) History of bradycardia History of left common carotid artery stent placement HTN (hypertension) ICD (implantable cardioverter-defibrillator) in place Ischemic cardiomyopathy Osteomyelitis Pacemaker PAD (peripheral artery disease) LSFA/popliteal/peroneal artery angioplasty on 06/01/17 PMR (polymyalgia rheumatica) PVD (peripheral vascular disease) Statin intolerance Surgical History S/P CABG x 2 Status post cataract extraction Status post tubal ligation Family History Brother Diabetes Sister Diabetes Social History Smoking Status: Unknown if ever smoked Second Hand Exposure: No; Preferred Language: Luxembourgish Communication Ability: Impaired Visual Impairment: No Limitations Hearing Ability: Normal 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 dementia unit current occupational status: retired Feels Safe at Home: Yes Assistive Devices: None Review of Systems Unobtainable due to cognitive status Physical Exam Vital Signs Vital Signs - 24 hr 10/05/20 04:15 10/05/20 04:17 10/05/20 04:18 Temperature Temperature Source Pulse Rate 112 H 101 H 111 H Pulse Rate from SpO2 Sensor Respiratory Rate 18 18 18 Respiratory Effort / Characteristics Respiratory Depth Blood Pressure 83/52 L 94/63 L Blood Pressure Mean 62 73 Pulse Oximetry Oxygen Delivery Method Sepsis Recent Fever Within 48 Hours Sepsis New/Unexplained Change in Mental Status Sepsis Action Taken by Nursing 10/05/20 04:30 10/05/20 04:49 10/05/20 04:50 Temperature 36.8 C Temperature Source Oral Pulse Rate 106 H 104 H 100 H Pulse Rate from SpO2 Sensor Respiratory Rate 21 21 18 Respiratory Effort / Characteristics Non-Labored Respiratory Depth Normal Blood Pressure 92/61 L 92/61 L Blood Pressure Mean 71 71 Pulse Oximetry 92 Oxygen Delivery Method Room Air Sepsis Recent Fever Within 48 Hours Yes Sepsis New/Unexplained Change in Mental Status No Sepsis Action Taken by Nursing No Action Required 10/05/20 05:00 10/05/20 05:01 10/05/20 05:30 Temperature Temperature Source Pulse Rate 100 H 104 H 81 Pulse Rate from SpO2 Sensor 103 H 104 H Respiratory Rate 18 16 18 Respiratory Effort / Characteristics Respiratory Depth Blood Pressure 101/57 L 79/42 L Blood Pressure Mean 71 54 Pulse Oximetry 95 93 Oxygen Delivery Method Sepsis Recent Fever Within 48 Hours Sepsis New/Unexplained Change in Mental Status Sepsis Action Taken by Nursing 10/05/20 05:45 10/05/20 05:46 10/05/20 06:00 Temperature Temperature Source Pulse Rate 87 87 85 Pulse Rate from SpO2 Sensor Respiratory Rate 19 14 13 Respiratory Effort / Characteristics Respiratory Depth Blood Pressure 98/51 L 74/52 L Blood Pressure Mean 75 66 59 Pulse Oximetry 98 98 Oxygen Delivery Method Sepsis Recent Fever Within 48 Hours Sepsis New/Unexplained Change in Mental Status Sepsis Action Taken by Nursing 10/05/20 06:30 Temperature Temperature Source Pulse Rate 94 H Pulse Rate from SpO2 Sensor Respiratory Rate 18 Respiratory Effort / Characteristics Respiratory Depth Blood Pressure 98/64 L Blood Pressure Mean 75 Pulse Oximetry 97 Oxygen Delivery Method Sepsis Recent Fever Within 48 Hours Sepsis New/Unexplained Change in Mental Status Sepsis Action Taken by Nursing GENERAL: alert, agitated, well nourished, moderate distress EYE EXAM: normal conjunctiva, PERRL and EOM's grossly intact OROPHARYNX: no exudate, no erythema, lips, buccal mucosa, and tongue normal and mucous membranes are moist NECK: supple, no nuchal rigidity, no adenopathy, non-tender LUNGS: Clear to auscultation. Normal chest wall mechanics, no w/r/r HEART: no murmurs, S1 normal and S2 normal ABDOMEN: abdomen soft, non-tender, normo-active bowel sounds, no masses, no rebound or guarding. BACK: Back is symmetrical on inspection and there is no deformity, no midline tenderness, no CVA tenderness. SKIN: no rashes and no bruising UPPER EXTREMITIES: upper extremities are grossly normal. FROM, nml pulses b/l. LOWER EXTREMITIES: No pitting edema. FROM, nml pulses b/l. Left foot with evolving erythema along the dorsal aspect that seems to be emanating from the fourth toe. NEURO EXAM: Normal sensorium, cranial nerves II-XII grossly intact, normal speech, no gross weakness of arms, no gross weakness of legs. Gross sensation intact. Course Course 0515: Pt more calm now after ativan. 0538: Discussed with daughter, Katey. States she was called that her temp was 102 earlier today, then she was very fatigued and hard to arouse. OR called and alerted her that they had called ambulance. She had nausea and dry heaving earlier today also. Agrees with DNR/DNI, no pressors, but does want IVF and IV antibiotics. She is aware of tenuous status at this time. Blood pressure is holding in 90s over 50s with IV fluids running. 0555: Discussed with Dr. Noble. Administered Medications Discontinued Medications Albumin Human (Albumin Human 25% 12.5 Gm/50 Ml Vial) Confirm Administered Dose 12.5 gm IV .[employer]-MED ONE Stop: 10/05/20 12:58 Last Admin: 10/05/20 13:31 Dose: 12.5 gm Documented by: [id number] Aspirin (Aspirin 81 Mg Ectab) [facility] Stop: 11/04/20 10:00 Last Admin: 10/05/20 11:11 Dose: Not Given Documented by: [id number] Heparin Sodium/Dextrose (Heparin Iv Adult Wt-Based Low-Dose *No* Bolus Protocol) 1 ea IV ONE ONE; Protocol Stop: 10/05/20 10:02 Last Admin: 10/05/20 12:30 Dose: 1 ea Documented by: [id number] Sodium Chloride (Nss 1000ml) 1,000 mls @ 999 mls/hr IV .Q1H1M LUCY Stop: 10/05/20 05:30 Last Infusion: 10/05/20 12:11 Dose: 0 mls/hr Documented by: [id number] Admin: 10/05/20 04:48 Dose: 999 mls/hr Documented by: [id number] Lorazepam (Ativan) 1 mg in 2 mls @ 2 mls/min IV NOW STA Stop: 10/05/20 05:03 Last Admin: 10/05/20 05:03 Dose: 2 mls/min Documented by: [id number] Vancomycin HCl 1,250 mg/ (Sodium Chloride) 525 mls @ 200 mls/hr IV NOW ONE Stop: 10/05/20 07:40 Last Infusion: 10/05/20 09:08 Dose: 0 mls/hr Documented by: [id number] Admin: 10/05/20 05:58 Dose: 200 mls/hr Documented by: [id number] Cefepime HCl (Maxipime) 2,000 mg in 20 mls @ 5 mls/min IV NOW STA Stop: 10/05/20 05:06 Last Admin: 10/05/20 05:19 Dose: 5 mls/min Documented by: [id number] Sodium Chloride (Nss 1000ml) 1,000 mls @ 999 mls/hr IV .Q1H1M ONE Stop: 10/05/20 06:48 Last Infusion: 10/05/20 12:11 Dose: 0 mls/hr Documented by: [id number] Admin: 10/05/20 05:59 Dose: 999 mls/hr Documented by: [id number] Sodium Chloride (Nss 1000ml) 1,000 mls @ 999 mls/hr IV .Q1H1M ONE Stop: 10/05/20 07:42 Last Admin: 10/05/20 10:38 Dose: Not Given Documented by: [id number] Heparin Sodium/Dextrose (Heparin Sodium/Dextrose) 25,000 units in 500 mls @ 19 mls/hr IV .Q24H LUCY; Protocol Stop: 11/04/20 10:00 Last Admin: 10/05/20 12:30 Dose: 950 units/hr, 19 mls/hr Documented by: [id number] Cosigned by: [id number] Sodium Chloride (Nss 1000ml) 1,000 mls @ 125 mls/hr IV .Q8H LUCY Stop: 11/04/20 10:00 Last Infusion: 10/05/20 13:35 Dose: 0 mls/hr Documented by: [id number] Admin: 10/05/20 10:38 Dose: 125 mls/hr Documented by: [id number] Meropenem 500 mg/ Syringe 10 mls @ 2 mls/min IV Q8H LUCY; Protocol Stop: 10/07/20 11:29 Last Admin: 10/05/20 11:39 Dose: 2 mls/min Documented by: [id number] Hydrocortisone Sodium (Succinate 100 mg/ Syringe) 2 mls @ 4 mls/min IV Q8 LUCY Stop: 11/04/20 10:59 Last Admin: 10/05/20 10:36 Dose: 4 mls/min Documented by: [id number] Sodium Chloride (Nss) 500 mls @ 999 mls/hr IV .Q31M ONE Stop: 10/05/20 12:03 Last Infusion: 10/05/20 12:30 Dose: 0 mls/hr Documented by: [id number] Admin: 10/05/20 11:55 Dose: 999 mls/hr Documented by: [id number] Albumin Human (Albumin 25%) 12.5 gm in 50 mls @ 50 mls/hr IV 1330,1430 [facility] Stop: 10/05/20 15:29 Last Admin: 10/05/20 13:42 Dose: 50 mls/hr Documented by: [id number] Lactated Ringer's (Lr) 1,000 mls @ 999 mls/hr IV .Q1H1M LUCY Stop: 10/05/20 14:00 Last Admin: 10/05/20 13:35 Dose: 999 mls/hr Documented by: [id number] Lactated Ringer's (Lr) 1,000 mls @ 999 mls/hr IV .Q1H1M LUCY Stop: 10/05/20 14:00 Last Admin: 10/05/20 13:35 Dose: 999 mls/hr Documented by: [id number] Insulin Aspart (Insulin Aspart 100 Units/Ml 3 Ml Pen) 0 units SC ACHS LUCY Stop: 11/04/20 11:29 Last Admin: 10/05/20 12:04 Dose: Not Given Documented by: [id number] Lorazepam (Lorazepam 2 Mg/Ml Vial (Im Use)) 1 mg IM NOW STA Stop: 10/05/20 04:20 Last Admin: 10/05/20 05:06 Dose: Not Given Documented by: [id number] Ziprasidone (Ziprasidone 20 Mg/Ml Sdv) 20 mg IM ONCE ONE Stop: 10/05/20 10:13 Last Admin: 10/05/20 10:34 Dose: 20 mg Documented by: [id number] Critical Care Time Critical Care Time: Yes Total Critical Care Time: 51 Critical care of 51 min performed to assess and manage high likelihood of life- threatening sepsis, involving labs and imaging performed with assessment to evaluate sepsis diagnosis with frequent reassessment. This time includes bedside time, treatment discussions with patient/family/consultants, documentation time and excludes procedure time. Medical Decision Making Differential Diagnosis Differential diagnosis: Etiologies such as viral syndrome, otitis, pharyngitis, pneumonia, influenza, meningitis, urinary tract infection, sepsis, bacteremia, as well as others were entertained. Medical Records Attestation: I reviewed the patient's medical records. Home Medications Current Medication List: was personally reviewed by me Laboratory Data Attestation: I reviewed the patient's lab results. Result diagrams: 10/05/20 04:23 10/05/20 04:23 Lab Results 10/05/20 10/05/20 10/05/20 Range/Units 04:23 04:23 04:23 WBC 13.66 H (4.8-10.8) K/uL RBC 4.06 L (4.2-5.4) M/uL Hgb 11.1 L (12.0-16.0) g/dL Hct 35.0 L (37-47) % MCV 86.2 (80-100) fL MCH 27.3 (25-34) pg MCHC 31.7 L (32-36) g/dL RDW Std Deviation 59.3 H (36.4-46.3) fL RDW Coeff of Fercho 18.7 H (11.5-14.5) % Plt Count 259 (130-400) K/uL MPV 10.7 H (7.4-10.4) fL Immature Gran % (Auto) 0.2 % Neut % (Auto) 82.9 % Lymph % (Auto) 9.5 % Craig % (Auto) 7.2 % Eos % (Auto) 0.1 % Baso % (Auto) 0.1 % Neut # (Auto) 11.32 H (1.4-6.5) K/uL Lymph # (Auto) 1.30 (1.2-3.4) K/uL Craig # (Auto) 0.98 H (0.11-0.59) K/uL Eos # (Auto) 0.02 (0-0.5) K/uL Baso # (Auto) 0.01 (0-0.2) K/uL Immature Gran # (Auto) 0.03 H (0.00-0.02) K/uL Sodium 137 (136-145) mmol/L Potassium 4.2 (3.5-5.1) mmol/L Chloride 101 (98-107) mmol/L Carbon Dioxide 26 (21-32) mmol/L Anion Gap 10.0 (3-11) BUN 38 H (7-18) mg/dl Creatinine 1.46 H (0.6-1.2) mg/dl Est Cr Clr Drug Dosing 24.7 ml/min Est GFR ( Amer) 39.3 ml/min Est GFR (Non-Af Amer) 33.9 ml/min BUN/Creatinine Ratio 25.9 H (10-20) Glucose 125 H (70-99) mg/dl Lactate 9.3 H* (0.4-2.0) mmol/L Calcium 9.5 (8.5-10.1) mg/dl Magnesium 2.0 (1.8-2.4) mg/dl Total Bilirubin 0.6 (0.2-1) mg/dl AST 113 H (15-37) U/L ALT 25 (12-78) U/L Alkaline Phosphatase 75 (45-117) U/L Troponin I 20.000 H* (0-0.045) ng/ml Total Protein 7.2 (6.4-8.2) gm/dl Albumin 3.2 L (3.4-5.0) gm/dl Globulin 4.0 (2.5-4.0) gm/dl Albumin/Globulin Ratio 0.8 L (0.9-2) Procalcitonin (0-0.5) ng/ml COVID-19 Eval Order SARS-CoV-2 (PCR) (Negative) Bld Cult Staph aureus PCR (Negative) Blood Culture MRSA PCR (Negative) 10/05/20 10/05/20 10/05/20 Range/Units 04:23 04:23 06:14 WBC (4.8-10.8) K/uL RBC (4.2-5.4) M/uL Hgb (12.0-16.0) g/dL Hct (37-47) % MCV (80-100) fL MCH (25-34) pg MCHC (32-36) g/dL RDW Std Deviation (36.4-46.3) fL RDW Coeff of Fercho (11.5-14.5) % Plt Count (130-400) K/uL MPV (7.4-10.4) fL Immature Gran % (Auto) % Neut % (Auto) % Lymph % (Auto) % Craig % (Auto) % Eos % (Auto) % Baso % (Auto) % Neut # (Auto) (1.4-6.5) K/uL Lymph # (Auto) (1.2-3.4) K/uL Craig # (Auto) (0.11-0.59) K/uL Eos # (Auto) (0-0.5) K/uL Baso # (Auto) (0-0.2) K/uL Immature Gran # (Auto) (0.00-0.02) K/uL Sodium (136-145) mmol/L Potassium (3.5-5.1) mmol/L Chloride (98-107) mmol/L Carbon Dioxide (21-32) mmol/L Anion Gap (3-11) BUN (7-18) mg/dl Creatinine (0.6-1.2) mg/dl Est Cr Clr Drug Dosing ml/min Est GFR ( Amer) ml/min Est GFR (Non-Af Amer) ml/min BUN/Creatinine Ratio (10-20) Glucose (70-99) mg/dl Lactate (0.4-2.0) mmol/L Calcium (8.5-10.1) mg/dl Magnesium (1.8-2.4) mg/dl Total Bilirubin (0.2-1) mg/dl AST (15-37) U/L ALT (12-78) U/L Alkaline Phosphatase (45-117) U/L Troponin I (0-0.045) ng/ml Total Protein (6.4-8.2) gm/dl Albumin (3.4-5.0) gm/dl Globulin (2.5-4.0) gm/dl Albumin/Globulin Ratio (0.9-2) Procalcitonin 0.52 H (0-0.5) ng/ml COVID-19 Eval Order Covid19 at [facility] SARS-CoV-2 (PCR) (Negative) Bld Cult Staph aureus PCR Positive A (Negative) Blood Culture MRSA PCR Negative (Negative) 10/05/20 10/05/20 Range/Units 06:14 06:37 WBC (4.8-10.8) K/uL RBC (4.2-5.4) M/uL Hgb (12.0-16.0) g/dL Hct (37-47) % MCV (80-100) fL MCH (25-34) pg MCHC (32-36) g/dL RDW Std Deviation (36.4-46.3) fL RDW Coeff of Fercho (11.5-14.5) % Plt Count (130-400) K/uL MPV (7.4-10.4) fL Immature Gran % (Auto) % Neut % (Auto) % Lymph % (Auto) % Craig % (Auto) % Eos % (Auto) % Baso % (Auto) % Neut # (Auto) (1.4-6.5) K/uL Lymph # (Auto) (1.2-3.4) K/uL Craig # (Auto) (0.11-0.59) K/uL Eos # (Auto) (0-0.5) K/uL Baso # (Auto) (0-0.2) K/uL Immature Gran # (Auto) (0.00-0.02) K/uL Sodium (136-145) mmol/L Potassium (3.5-5.1) mmol/L Chloride (98-107) mmol/L Carbon Dioxide (21-32) mmol/L Anion Gap (3-11) BUN (7-18) mg/dl Creatinine (0.6-1.2) mg/dl Est Cr Clr Drug Dosing ml/min Est GFR ( Amer) ml/min Est GFR (Non-Af Amer) ml/min BUN/Creatinine Ratio (10-20) Glucose (70-99) mg/dl Lactate 8.9 H* (0.4-2.0) mmol/L Calcium (8.5-10.1) mg/dl Magnesium (1.8-2.4) mg/dl Total Bilirubin (0.2-1) mg/dl AST (15-37) U/L ALT (12-78) U/L Alkaline Phosphatase (45-117) U/L Troponin I (0-0.045) ng/ml Total Protein (6.4-8.2) gm/dl Albumin (3.4-5.0) gm/dl Globulin (2.5-4.0) gm/dl Albumin/Globulin Ratio (0.9-2) Procalcitonin (0-0.5) ng/ml COVID-19 Eval Order SARS-CoV-2 (PCR) POSITIVE A* (Negative) Bld Cult Staph aureus PCR (Negative) Blood Culture MRSA PCR (Negative) Imaging Data Radiologist's Impression: Chest X-Ray 10/05/20 04:19 SINGLE VIEW CHEST CLINICAL HISTORY: Sepsis. FINDINGS: An AP, portable, upright chest radiograph is compared to study dated 04/05/2020. The examination is degraded by portable technique and patient rotation. The patient is status post midline sternotomy. A 3-lead cardiac AICD is unchanged in position. The heart is enlarged noting atherosclerotic calcification of the thoracic aorta. There is prominence of the pulmonary vasculature. No airspace consolidation or large pleural effusion is identified. Atelectasis is noted at the lung bases. No pneumothorax is seen. The skeletal structures are osteopenic. The bony thorax is grossly intact. IMPRESSION: 1. Cardiomegaly and AICD with prominence of the pulmonary vasculature. Correlate clinically for evidence of mild congestive change. 2. No airspace consolidation or large pleural effusion is identified. ACT 112: Negative or not required by law. Electronically signed by: Tc Mathew M.D. 10/05/2020 8:03 AM Foot X-Ray 10/05/20 05:03 LEFT FOOT 3 VIEWS CLINICAL HISTORY: Left foot infection. Fourth toe wound. FINDINGS: 3 views of the left foot are compared to study dated 01/16/2019. The skeletal structures are osteopenic. No fracture is identified. There is no bony erosion or periostitis. Moderate osteoarthritic change is present at the first metatarsophalangeal joint. Osteophytic arthritic change is also seen throughout the midfoot. Degenerative spurring is seen along the dorsal aspect of the tarsal bones. There is a small plantar calcaneal enthesophyte. Soft tissue edema is present throughout the forefoot. No subcutaneous gas or radiodense foreign body is seen. There is advanced atherosclerotic calcification of the regional arteries. IMPRESSION: 1. Soft tissue edema is seen throughout the forefoot. 2. No acute bony abnormality is identified. 3. Osteopenia and degenerative change as above. Electronically signed by: Tc Mathew M.D. 10/05/2020 7:56 AM ECG Data Attestation: I personally reviewed and interpreted this ECG as follows: Indication: + altered mental status Rate (beats per minute): 103 Rhythm: + other (paced) ECG Intervals/blocks: + IVCD and + Prolonged QT ECG [place]: + Left axis deviation ECG ST segments: + Nonspecific ST abnormalities MDM Narrative This is a 80-year-old female who presents via EMS from a [facility] facility due to concern for fever and evolving infection. A sepsis evaluation was started on the patient however she did require Ativan to calm her level of agitation so we could perform appropriate evaluation. Patient unable to provide any history due to dementia and agitation. Patient with several abnormal lab markers. IV fluids were maintained and patient was holding a blood pressure of 90s over 50s mostly. Heart rate did improve and fever did improve also. He did appear to be in evolving infection from the patient's left foot. Patient is on chronic steroids due to PMR and is also a known diabetic. 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 Broad-spectrum IV antibiotics were started. I did call the patient's daughter and had extensive conversation regarding her current tenuous condition and my concern for sepsis. She verbalized understanding of all this. Case discussed with hospitalist for additional evaluation and management. Patient with elevated troponin and lactic acid. Patient unable to provide any history regarding symptoms of ACS and EKG appears unchanged in a paced rhythm. I feel this may be related to infection however could be from evolving cardiac etiology also. An order was placed for continuous cardiac monitoring. The monitor shows a rate of _103__ with _paced_ rhythm. Impression & Plan Sepsis, Dementia, Elevated troponin, SARAVANAN (acute kidney injury), Cellulitis Discharge Plan Visit Data Chief Complaint: Fever Stated Complaint: FEVER/INFECTED WOUND ON TOE ED Provider: Ara Knapp Discharge Problem: Sepsis, Dementia, Elevated troponin, SARAVANAN (acute kidney injury), Cellulitis Patient Disposition: Admitted As Inpatient Discharge Instructions Interventions: ED Discharge Assessment Last Done: 10/05/20 09:31 Discharge Problem: Sepsis Qualifiers: Sepsis type: sepsis due to unspecified organism Sepsis acute organ dysfunction status: with acute organ dysfunction Severe sepsis acute organ dysfunction type: acute renal failure Acute renal failure type: unspecified Severe sepsis shock status: with septic shock Qualified Code(s): A41.9 - Sepsis, unspecified organism Dementia Qualifiers: Dementia type: unspecified type Dementia behavioral disturbance: with behavioral disturbance Qualified Code(s): F03.91 - Unspecified dementia with behavioral disturbance Cellulitis Qualifiers: Site of cellulitis: extremity Site of cellulitis of extremity: lower extremity Laterality: left Qualified Code(s): L03.116 - Cellulitis of left lower limb
[2020-10-05 05:16] LABS: Albumin Globulin Ratio 0.8 (0.9-2); Bilirubin,Total 0.6 mg/dl (0.2-1); Total Protein 7.2 gm/dl (6.4-8.2)
[2020-10-05] MEDS ORDERED: SODIUM CHLORIDE 0.9% 1000ML 1,000 ML IV ONE ×2 (05:48→06:42)
--- NOTE | 2020-10-05 07:57 | XRay Report ---
LEFT FOOT 3 VIEWS CLINICAL HISTORY: Left foot infection. Fourth toe wound. FINDINGS: 3 views of the left foot are compared to study dated 01/16/2019. The skeletal structures are osteopenic. No fracture is identified. There is no bony erosion or periostitis. Moderate osteoarthri tic change is present at the first metatarsophalangeal joint. Osteophytic arthritic change is also se en throughout the midfoot. Degenerative spurring is seen along the dorsal aspect of the tarsal bones. There is a small plantar calcaneal enthesophyte. Soft tissue edema is present throughout the forefoo t. No subcutaneous gas or radiodense foreign body is seen. There is advanced atherosclerotic calcific ation of the regional arteries. IMPRESSION: 1. Soft tissue edema is seen throughout the forefoot. 2. No acute bony abnormality is identified. 3. Osteopenia and degenerative change as above. Electronically signed by: Tc Mathew M.D. 10/05/2020 7:56 AM
--- NOTE | 2020-10-05 08:04 | XRay Report ---
SINGLE VIEW CHEST CLINICAL HISTORY: Sepsis. FINDINGS: An AP, portable, upright chest radiograph is compared to study dated 04/05/2020. The examin ation is degraded by portable technique and patient rotation. The patient is status post midline ster notomy. A 3-lead cardiac AICD is unchanged in position. The heart is enlarged noting atherosclerotic calcification of the thoracic aorta. There is prominence of the pulmonary vasculature. No airspace co nsolidation or large pleural effusion is identified. Atelectasis is noted at the lung bases. No pneum othorax is seen. The skeletal structures are osteopenic. The bony thorax is grossly intact. IMPRESSION: 1. Cardiomegaly and AICD with prominence of the pulmonary vasculature. Correlate clinically for evide nce of mild congestive change. 2. No airspace consolidation or large pleural effusion is identified. ACT 112: Negative or not required by law. Electronically signed by: Tc Mathew M.D. 10/05/2020 8:03 AM
[2020-10-05 09:13] LABS: Appearance Urine Clear (Clear); Bacteria Urine Automated Negative (Negative); Bilirubin Urine Negative (Negative); Blood Urine Negative (Negative); Color Urine Yellow; Epithelial Cell Urine Auto >30 /lpf (0-5); Glucose Urine UA Negative (Negative); Ketones Urine Negative (Negative); Leukocyte Esterase Urine Negative (Negative); Nitrite Urine Negative (Negative); Protein Urine Trace (Negative); RBC Urine Automated 0-4 /hpf (0-4); Specific Gravity Urine 1.017 (1.000-1.030); Urobilinogen Urine Negative (Negative)
[2020-10-05] MEDS ORDERED: HYDROCORTISONE SOD SUCCINATE 100 MG/2 ML VIAL IV STA (10:01)
[2020-10-05] MEDS ORDERED: HEPARIN SODIUM/DEXTROSE 25,000 UNITS/500 ML BAG IV SCH (10:01)
[2020-10-05] MEDS ORDERED: MEROPENEM CONSULT ACITVE PRN (10:01)
[2020-10-05] MEDS ORDERED: HALOPERIDOL LACTATE 5 MG/ML 1 ML VIAL IM PRN (10:01)
[2020-10-05] MEDS ORDERED: ONDANSETRON INJ 2 MG/ML 2 ML VIAL IV PRN (10:01)
[2020-10-05] MEDS ORDERED: Heparin IV Adult Wt-Based Low-Dose *NO* Bolus Protocol IV ONE (10:01)
[2020-10-05] MEDS ORDERED: ACETAMINOPHEN 325 MG TAB PO PRN (10:01)
[2020-10-05] MEDS ORDERED: ASPIRIN 81 MG ECTAB PO SCH (10:01)
[2020-10-05] MEDS ORDERED: NITROGLYCERIN SL 0.4 MG/TAB TAB SL PRN (10:01)
[2020-10-05] MEDS ORDERED: ZIPRASIDONE 20 MG/ML SDV IM ONE (10:12)
[2020-10-05] MEDS ORDERED: CARBOHYDRATES FOR HYPOGLYCEMIA PO PRN (10:30)
[2020-10-05] MEDS ORDERED: DEXTROSE 50% 50 ML SYRINGE IV PRN (10:30)
[2020-10-05] MEDS ORDERED: GLUCOSE 40% GEL 15 GM TUBE PO PRN (10:30)
[2020-10-05] MEDS ORDERED: GLUCAGON FOR INJ 1 MG VIAL IM PRN (10:30)
[2020-10-05] MEDS ORDERED: GLUCOSE 10 TABS/TUBE PO PRN (10:30)
[2020-10-05] MEDS ORDERED: HYDROCORTISONE SOD 100 MG in SYRINGE 0 ML IV SCH ×2 (11:00→16:00)
--- NOTE | 2020-10-05 11:09 | History and Physical Report ---
DATE OF ADMISSION: 10/05/2020. CHIEF COMPLAINT: Sepsis. HISTORY OF PRESENT ILLNESS: This 80-year-old female with past medical history significant for type 2 diabetes, hyperlipidemia, allergic rhinitis, history of ischemic cardiomyopathy EF of 30-35%, systolic failure, status post ICD and pacemaker, vascular dementia, hearing loss, polymyalgia rheumatica, GERD, hypertension, peripheral vascular disease, carotid stenosis. The patient is currently in hospice care at [facility], was brought in because of her fever and infection of the left foot.Patient was here in March with COVID and at that time she was discharged to hospice care. Daughter visited the patient last Tuesday for her birthdayat that time she was fine, then last Tuesday, she bumped her left foot and last night, she was noticed to have 102 of fever and infection and she was brought in here. The patient is confused and she was somewhat agitated and tried to hit the staff and blood pressure was on the lower side, some tachycardia. White count of 13.6, creatinine 1.4. Lactic acid 9. Troponin is 20. Foot x-ray of the left foot showed soft tissue edema throughout the forefoot, no acute bony abnormality identified. Chest x-ray, no airspace consolidations or large pleural effusion seen. The patient is confused, could not get any history from the patient. Talked with daughter, says the patient is DNR/DNI and does not want any aggressive measures just antibiotics and fluids. No central lines or pressors. Understands that the patient is in critical condition. ALLERGIES: TO BACTRIM, LISINOPRIL, PENICILLINS, ATORVASTATIN, CAPSAICIN, DICLOFENAC, ROSUVASTATIN, FENOFIBRATE, DICLOPAK. PAST MEDICAL HISTORY: As mentioned above. PAST SURGICAL HISTORY: CABG, fem-pop artery revascularization with angioplasty on the left side, ligation of oviduct, pacemaker insertion, cataract, left carotid stent placement. MEDICATIONS: Patient is on aspirin 81 mg p.o. daily, Coreg 12.5 mg p.o. b.i.d., cephalexin 500 mg p.o. b.i.d., vitamin D 10 mcg p.o. q.a.m., Flonase 1 spray intranasal daily a.m., Lasix 20 mg a.m., Levemir as directed, losartan 25 mg p.o. a.m., metolazone 2.5 mg p.o. 3 times a week, multivitamins 1 tablet daily, omeprazole 20 mg p.o. daily, potassium chloride 10 mEq p.o. b.i.d., prednisone 5 mg q.a.m., Detrol 1 mg p.o. at bedtime. FAMILY HISTORY: Significant for brother has diabetes. Mother has heart problems. Father has diabetes. Sister has ovarian cancer. SOCIAL HISTORY: Currently lives at [facility], quit smoking in 1972. No alcohol use. No drug use. REVIEW OF SYSTEMS: Currently unobtainable. PHYSICAL EXAMINATION: GENERAL EXAM: Patient is alert and awake, confused, somewhat agitated. VITAL SIGNS: Temperature 36.8, pulse 94, blood pressure 98/64, oxygen 97% on room air. HEENT: Extra ocular muscles intact. NECK: No neck masses or JVD is seen. CARDIOVASCULAR: S1 and S2, tachycardia. No murmurs. RESPIRATORY SYSTEM: Normal AP diameter. No accessory muscle use. No wheezing, no crackles. ABDOMEN: Soft, bowel sounds present, nontender. CENTRAL NERVOUS SYSTEMS: Consistent with agitated, moving extremities. EXTREMITIES: No edema is seen. Left foot diabetic foot ulcer seen and erythema seen. LABORATORY DATA: WBC 13.6, hemoglobin 11.1, hematocrit 35, platelets 259. Sodium 137, potassium 4.2, chloride 101, bicarbonate 26, BUN 38, creatinine 1.4, serum glucose 125. Lactate 8.9, calcium 9.5, magnesium 2, total bilirubin 0.6, AST 113, ALT 75, troponin I 20. Procalcitonin 0.52. SARS-CoV-2 PCR pending. Left foot x-ray, soft tissue edema seen throughout the forefoot. No acute bony abnormality identified. Chest x-ray, no acute findings seen. Cardiomegaly and AICD is seen. EKG: Atrial sensed ventricular paced rhythm, rate of 103. ASSESSMENT AND PLAN: This 80-year-old female presents with severe sepsis, septic shock, and non-ST elevation myocardial infarction. 1. Sepsis, septic shock and elevated lactic acid of 8.9. Source of infection possible left foot,Blood pressure on the soft side. White count of 13.6, tachycardic. Patient is confused and has baseline dementia. Patient is under hospice care at [facility]. Daughter wants the patient to be DNR/DNI, no aggressive measures, no central lines or pressors. She wants her to be treated with antibiotics and fluids and see how she does. Empirically started on vancomycin and meropenem. Follow the cultures. Follow the response and follow repeat lactic acid and closely monitor in tele floor. Daughter is going come to the hospital and based on how she responds we will make a final disposition. 2. Non-ST elevated myocardial infarction with troponin of 20. EKG, no acute ST changes seen, most likely from sepsis. We will trend the enzymes, echocardiogram. Start her on load of IV heparin. Follow echocardiogram. Prognosis is poor. No aggressive measures as per the daughter. 3. History of diabetes, we will place on insulin sliding scale. 4. History of chronic systolic congestive heart failure, EF 30-35%, status post AICD, not on any diuretics at home. We will hold Coreg and lasix because of hypotension. We will follow an echocardiogram. Getting fluids for sepsis. Monitor for any volume overload. 5. History of polymyalgia rheumatica, on prednisone 5 mg, we will place her on stress dose steroids. 6. History of peripheral vascular disease. Continue aspirin if patient is able to take p.o. 7. Hypertension. Holding blood pressure medications because of hypotension. 8. History of vascular dementia.Baseline recognizes family and can make some conversation but does not make any sense as per daughter, right now patient is somewhat agitated. Monitor for any delirium. 9. Deep venous thrombosis prophylaxis, on IV heparin. 10. Acute kidney injury on chronic kidney disease stage III, creatinine 1.4, baseline creatinine around 1, getting fluids, avoid nephrotoxic agents. Followrepeat labs. DISPOSITION: Admit to tele-floor. PROGNOSIS: Poor. CODE STATUS: DNR/DNI. Job ID: [id number] [facility]
[2020-10-05 11:11] LABS: Partial Thromboplastin Ratio 1.1; Partial Thromboplastin Time 29.6 Seconds (21.0-31.0)
--- NOTE | 2020-10-05 11:26 | Pharmacy Report ---
Pharmacy Abx Initial Consult - Date of Service October 05, 2020 - Pharmacy Dosing Scope Date of Consult: 10/05/20 Consultation requested by: Dr. Noble Pharmacy is consulted to initiate vancomycin and meropenem IV dosing therapy, order appropriate labs and adjust drug dose/frequency. - Subjective The patient is a 80 year old F admitted on 10/05/20 07:31. - Objective Height: 5 ft 2 in Weight: 56.4 kg Vital Signs (Past 12hrs): Vital Signs Temp Pulse Resp BP Pulse Ox 10/05/20 09:31 88 16 84/60 L 94 10/05/20 06:30 94 H 18 98/64 L 97 10/05/20 06:00 85 13 74/52 L 10/05/20 05:46 87 14 98/51 L 98 10/05/20 05:45 87 19 98 10/05/20 05:30 81 18 79/42 L 10/05/20 05:01 104 H 16 101/57 L 93 10/05/20 05:00 100 H 18 95 10/05/20 04:50 36.8 C 100 H 18 92/61 L 92 10/05/20 04:49 104 H 21 92/61 L 10/05/20 04:30 106 H 21 10/05/20 04:18 111 H 18 10/05/20 04:17 101 H 18 94/63 L 10/05/20 04:15 112 H 18 83/52 L Lab Results (24hrs): Laboratory Tests (24 Hours) 10/05/20 10/05/20 10/05/20 04:23 04:23 04:23 WBC 13.66 H Neut # (Auto) 11.32 H Creatinine 1.46 H Est Cr Clr Drug Dosing 24.7 Procalcitonin 0.52 H Micro Results: 10/05/20 04:23 Aerobic Blood Culture - Pending Blood Anaerobic Blood Culture - Pending 10/05/20 04:23 Aerobic Blood Culture - Pending Blood Anaerobic Blood Culture - Pending - Risk Factors for Resistance * Resident in a half-way or extended-care facility * 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 Vancomycin and meropenem ordered empirically. Past medical history significant for DM2. Patient is currently in hospice care. SCr ~1.46, indicating a slight SARAVANAN (baseline SCr ~1mg/dL), leukocytosis, and elevated PCT. Pt received a vanco load in the ED of 1250mg this AM. Plan Vancomycin IV * Loading dose: 1250 mg (22 mg/kg) * Maintenance dose: 1000 mg IV (18 mg/kg) every 24 hours * Will obtain a vancomycin trough level at steady state or sooner if clinically indicated if vancomycin continued. Pharmacy will continue to follow and will adjust dose/frequency as necessary. Thank you.
[2020-10-05] MEDS ORDERED: INSULIN ASPART 100 UNITS/ML 3 ML PEN SC SCH (11:30)
[2020-10-05] MEDS ORDERED: MEROPENEM 500 MG in SYRINGE 0 ML IV SCH (11:30)
[2020-10-05] MEDS ORDERED: SODIUM CHLORIDE 0.9% 500 ML IV ONE (11:33)
[2020-10-05] MEDS ORDERED: ALBUMIN HUMAN 25% 12.5 GM/50 ML VIAL IV ONE (12:57)
[2020-10-05] MEDS ORDERED: ALBUMIN 25% 12.5 GM/50 ML VIAL IV SCH ×2 (13:30→20:00)
[2020-10-05] MEDS ORDERED: LACTATED RINGER'S 1,000 ML IV SCH ×2 (13:30)
--- NOTE | 2020-10-05 13:57 | Critical Care Consultation ---
Date of Consultation October 05, 2020 Assessment & Plan (1) Shock circulatory: Reason Critically Ill: Circulatory shock PLAN: Neuro: Acute encephalopathy History of baseline dementia with combative behavior Resp: Tachypnea -Compensatory COVID-19 pneumonia -Supportive care CV: NSTEMI Circulatory shock with multisystem organ dysfunction -Family does not desire invasive lines -Judicious use of fluids and peripheral vasoactive medications Fluids/Renal: Acute kidney injury -Nam strict I's and O's ID: Broad-spectrum antibiotics -Procalcitonin marginally elevated suspect cardiovascular in origin GI/Nutrition: Elevated AST Heme: Leukocytosis DVT prophylaxis: Heparin infusion Endocrine: ICU hyperglycemia protocol Vascular access: Peripheral IVs Code Status: DNR in event of cardiac arrest, DNI in event of respiratory insuf ficiency no invasive procedures -Previously hospice patient family not comfortable with true comfort measures will be as aggressive as possible with above limitations Disposition: ICU (2) Acute metabolic encephalopathy: (3) Pneumonia due to COVID-19 virus: (4) Non-ST elevation NC (NSTEMI): (5) SARAVANAN (acute kidney injury): (6) Lactic acid acidosis: (7) DNR no code (do not resuscitate): Supervising Physician Co-Signing Physician Notes I have personally spent 40 minutes of critical care time in the direct devorah gement of this patient. This is a life/limb threatening event. This includes time spent evaluating patient, direct bedside care, chart review, placing orders, interpretation of diagnostic studies, discussion with consultants, patient, and/or family members regarding treatment decisions, as well as other required patient management activities. This time is exclusive of all separately billable procedures, and teaching time and separate from and in addition to any other critical care service time. History of Present Illness Reason for Consultation: Septic shock Requesting Physician: Gulshan Schneider DO Attending Physician: Gulshan Schneider DO History of Present Illness 80-year-old female with a history of dementia who is experiencing septic shock. Patient is DNR/DNI in event of cardiac arrest and respiratory insufficiency family also declines invasive procedures we will proceed with peripheral antibiotics peripheral vasopressors and fluid administration. Allergies Allergy/AdvReac Type Severity Reaction Status Date / Time Bactrim Allergy Unknown . Verified 09/05/17 16:36 lisinopril Allergy Unknown Unknown Verified 10/05/20 07:19 Penicillins Allergy Unknown ON Verified 10/05/20 07:19 ELMCROFT LIST sulfamethoxazole Allergy Unknown ON Verified 10/05/20 07:19 ELMCROFT LIST trimethoprim Allergy Unknown ON Verified 10/05/20 07:19 ELMCROFT LIST atorvastatin AdvReac Intermediate MUSCLE PAIN Verified 10/05/20 07:19 capsaicin AdvReac Intermediate N/V Verified 10/05/20 07:19 diclofenac AdvReac Intermediate N/V Verified 10/05/20 07:19 Diclopak AdvReac Intermediate N/V Verified 09/05/17 13:27 rosuvastatin AdvReac Intermediate MUSCLE PAIN Verified 10/05/20 07:19 fenofibrate AdvReac Mild SORE MOUTH Verified 10/05/20 07:19 Home Medications Medication Instructions Recorded Confirmed Type aspirin [Aspirin Low Dose] 81 mg PO QAM 12/22/17 10/05/20 History carvedilol 12.5 mg PO BID 12/22/17 10/05/20 History fluticasone propionate 1 spray INTRANASAL QAM 12/22/17 10/05/20 History tolterodine [Detrol] 1 mg PO HS 12/22/17 10/05/20 History losartan 25 mg PO QAM 09/10/18 10/05/20 History prednisone 5 mg PO QAM 12/22/18 10/05/20 History Levemir FlexTouch U-100 Insuln See Rx Instructions .ROUTE .COMPLEX 03/28/20 10/05/20 History furosemide 20 mg PO QAM 03/28/20 10/05/20 History omeprazole 20 mg PO DAILY 03/28/20 10/05/20 History potassium chloride 10 meq PO BID 03/28/20 10/05/20 History multivitamin [Daily-Erlinda] 1 tab PO DAILY 04/02/20 10/05/20 History cephalexin 500 mg PO BID 10/05/20 10/05/20 History cholecalciferol (vitamin D3) 10 mcg PO QAM 10/05/20 10/05/20 History [Vitamin D3] metolazone 2.5 mg PO 3XWK 10/05/20 10/05/20 History Patient History Medical History RADHA inhibitor intolerance Carotid arterial disease Cholelithiasis Chronic systolic heart failure Coronary artery disease "s/p NC" Dementia Diabetes mellitus, type 2 GERD (gastroesophageal reflux disease) History of bradycardia History of left common carotid artery stent placement HTN (hypertension) ICD (implantable cardioverter-defibrillator) in place Ischemic cardiomyopathy Osteomyelitis Pacemaker PAD (peripheral artery disease) LSFA/popliteal/peroneal artery angioplasty on 06/01/17 PMR (polymyalgia rheumatica) PVD (peripheral vascular disease) Statin intolerance Surgical History S/P CABG x 2 Status post cataract extraction Status post tubal ligation Family History Brother Diabetes Sister Diabetes Social History Smoking Status: Unknown if ever smoked Second Hand Exposure: No; Preferred Language: Martiniquais Communication Ability: Impaired Communication Ability Comment: unable to assess Visual Impairment: No Limitations Hearing Ability: Normal Recruiter Coordinator Required: No Beliefs That Will Affect Care: None marital status: / Current Living Situation: Personal Care Facility Current Living Situation Comment: [facility] dementia unit current occupational status: retired Feels Safe at Home: Yes Assistive Devices: None Review of Systems Review of Systems: Unobtainable due to cognitive status Physical Exam Physical Exam: General: Agitated combative. nontoxic. Skin: Cool, pale, dry, Head: Atraumatic Ears, nose, mouth and throat: airway patent Cardiovascular: Decreased peripheral perfusion Respiratory: Tachypnea Gastrointestinal: Non distended Musculoskeletal: No deformity Results & Data Results & Data ([facility]) Vital Signs (Past 12 Hours) Vital Signs Temp Pulse Pulse Resp BP BP Pulse Ox 10/05/20 13:45 81 78/40 L 91 10/05/20 13:25 79 28 H 91/22 L 93 10/05/20 13:19 66 26 H 60/36 L 78 L 10/05/20 13:15 73 26 H 56/37 L 85 L 10/05/20 13:00 37 C 74 28 H 68/43 L 91 10/05/20 12:47 81 66/45 L 10/05/20 12:35 79/49 L 10/05/20 12:21 86/41 L 10/05/20 11:40 96 H 89/58 L 10/05/20 11:15 95 H 22 92/75 L 96 10/05/20 11:00 94 H 100/58 L 10/05/20 10:30 95 H 20 72/39 L 94 10/05/20 10:01 36.6 C 24 74/39 L 96 10/05/20 09:31 88 16 84/60 L 94 10/05/20 06:30 94 H 18 98/64 L 97 10/05/20 06:00 85 13 74/52 L 10/05/20 05:46 87 14 98/51 L 98 10/05/20 05:45 87 19 98 10/05/20 05:30 81 18 79/42 L 10/05/20 05:01 104 H 16 101/57 L 93 10/05/20 05:00 100 H 18 95 10/05/20 04:50 36.8 C 100 H 18 92/61 L 92 10/05/20 04:49 104 H 21 92/61 L 10/05/20 04:30 106 H 21 10/05/20 04:18 111 H 18 10/05/20 04:17 101 H 18 94/63 L 10/05/20 04:15 112 H 18 83/52 L Laboratory Results 10/05/20 10/05/20 10/05/20 Range/Units 12:55 12:55 12:55 WBC (4.8-10.8) K/uL RBC (4.2-5.4) M/uL Hgb (12.0-16.0) g/dL Hct (37-47) % MCV (80-100) fL MCH (25-34) pg MCHC (32-36) g/dL RDW Std Deviation (36.4-46.3) fL RDW Coeff of Fercho (11.5-14.5) % Plt Count (130-400) K/uL MPV (7.4-10.4) fL Immature Gran % (Auto) % Neut % (Auto) % Lymph % (Auto) % [place] % (Auto) % Eos % (Auto) % Baso % (Auto) % Neut # (Auto) (1.4-6.5) K/uL Lymph # (Auto) (1.2-3.4) K/uL [place] # (Auto) (0.11-0.59) K/uL Eos # (Auto) (0-0.5) K/uL Baso # (Auto) (0-0.2) K/uL Immature Gran # (Auto) (0.00-0.02) K/uL APTT (21.0-31.0) Seconds PTT Ratio Sodium (136-145) mmol/L Potassium (3.5-5.1) mmol/L Chloride (98-107) mmol/L Carbon Dioxide (21-32) mmol/L Anion Gap (3-11) BUN (7-18) mg/dl Creatinine (0.6-1.2) mg/dl Est Cr Clr Drug Dosing ml/min Est GFR ( Amer) ml/min Est GFR (Non-Af Amer) ml/min BUN/Creatinine Ratio (10-20) Glucose (70-99) mg/dl POC Glucose (70-99) mg/dl Lactate (0.4-2.0) mmol/L Calcium (8.5-10.1) mg/dl Magnesium (1.8-2.4) mg/dl Total Bilirubin (0.2-1) mg/dl AST (15-37) U/L ALT (12-78) U/L Alkaline Phosphatase (45-117) U/L Troponin I (0-0.045) ng/ml Total Protein (6.4-8.2) gm/dl Albumin (3.4-5.0) gm/dl Globulin (2.5-4.0) gm/dl Albumin/Globulin Ratio (0.9-2) Procalcitonin (0-0.5) ng/ml Urine Color Urine Appearance (Clear) Urine pH (4.5-7.5) Ur Specific [place] (1.000-1.030) Urine Protein (Negative) Urine Glucose (UA) (Negative) Urine Ketones (Negative) Urine Blood (Negative) Urine Nitrite (Negative) Urine Bilirubin (Negative) Urine Urobilinogen (Negative) Ur Leukocyte Esterase (Negative) Urine WBC (Auto) (0-5) /hpf Urine RBC (Auto) (0-4) /hpf U Hyaline Cast (Auto) (0-5) /lpf U Epithel Cells (Auto) (0-5) /lpf Urine Bacteria (Auto) (Negative) COVID-19 Eval Order Covid19 at [facility] SARS-CoV-2 (PCR) Pending (Negative) SARS-CoV-2 RNA (JONNIE) Cancelled 10/05/20 10/05/20 10/05/20 Range/Units 12:48 11:47 10:48 WBC (4.8-10.8) K/uL RBC (4.2-5.4) M/uL Hgb (12.0-16.0) g/dL Hct (37-47) % MCV (80-100) fL MCH (25-34) pg MCHC (32-36) g/dL RDW Std Deviation (36.4-46.3) fL RDW Coeff of Fercho (11.5-14.5) % Plt Count (130-400) K/uL MPV (7.4-10.4) fL Immature Gran % (Auto) % Neut % (Auto) % Lymph % (Auto) % [place] % (Auto) % Eos % (Auto) % Baso % (Auto) % Neut # (Auto) (1.4-6.5) K/uL Lymph # (Auto) (1.2-3.4) K/uL [place] # (Auto) (0.11-0.59) K/uL Eos # (Auto) (0-0.5) K/uL Baso # (Auto) (0-0.2) K/uL Immature Gran # (Auto) (0.00-0.02) K/uL APTT 29.6 (21.0-31.0) Seconds PTT Ratio 1.1 Sodium (136-145) mmol/L Potassium (3.5-5.1) mmol/L Chloride (98-107) mmol/L Carbon Dioxide (21-32) mmol/L Anion Gap (3-11) BUN (7-18) mg/dl Creatinine (0.6-1.2) mg/dl Est Cr Clr Drug Dosing ml/min Est GFR ( Amer) ml/min Est GFR (Non-Af Amer) ml/min BUN/Creatinine Ratio (10-20) Glucose (70-99) mg/dl POC Glucose 117 H (70-99) mg/dl Lactate 7.6 H* (0.4-2.0) mmol/L Calcium (8.5-10.1) mg/dl Magnesium (1.8-2.4) mg/dl Total Bilirubin (0.2-1) mg/dl AST (15-37) U/L ALT (12-78) U/L Alkaline Phosphatase (45-117) U/L Troponin I (0-0.045) ng/ml Total Protein (6.4-8.2) gm/dl Albumin (3.4-5.0) gm/dl Globulin (2.5-4.0) gm/dl Albumin/Globulin Ratio (0.9-2) Procalcitonin (0-0.5) ng/ml Urine Color Urine Appearance (Clear) Urine pH (4.5-7.5) Ur Specific [place] (1.000-1.030) Urine Protein (Negative) Urine Glucose (UA) (Negative) Urine Ketones (Negative) Urine Blood (Negative) Urine Nitrite (Negative) Urine Bilirubin (Negative) Urine Urobilinogen (Negative) Ur Leukocyte Esterase (Negative) Urine WBC (Auto) (0-5) /hpf Urine RBC (Auto) (0-4) /hpf U Hyaline Cast (Auto) (0-5) /lpf U Epithel Cells (Auto) (0-5) /lpf Urine Bacteria (Auto) (Negative) COVID-19 Eval Order SARS-CoV-2 (PCR) (Negative) SARS-CoV-2 RNA (JONNIE) 10/05/20 10/05/20 10/05/20 Range/Units 10:48 10:45 09:00 WBC (4.8-10.8) K/uL RBC (4.2-5.4) M/uL Hgb (12.0-16.0) g/dL Hct (37-47) % MCV (80-100) fL MCH (25-34) pg MCHC (32-36) g/dL RDW Std Deviation (36.4-46.3) fL RDW Coeff of Fercho (11.5-14.5) % Plt Count (130-400) K/uL MPV (7.4-10.4) fL Immature Gran % (Auto) % Neut % (Auto) % Lymph % (Auto) % [place] % (Auto) % Eos % (Auto) % Baso % (Auto) % Neut # (Auto) (1.4-6.5) K/uL Lymph # (Auto) (1.2-3.4) K/uL [place] # (Auto) (0.11-0.59) K/uL Eos # (Auto) (0-0.5) K/uL Baso # (Auto) (0-0.2) K/uL Immature Gran # (Auto) (0.00-0.02) K/uL APTT (21.0-31.0) Seconds PTT Ratio Sodium (136-145) mmol/L Potassium (3.5-5.1) mmol/L Chloride (98-107) mmol/L Carbon Dioxide (21-32) mmol/L Anion Gap (3-11) BUN (7-18) mg/dl Creatinine (0.6-1.2) mg/dl Est Cr Clr Drug Dosing ml/min Est GFR ( Amer) ml/min Est GFR (Non-Af Amer) ml/min BUN/Creatinine Ratio (10-20) Glucose (70-99) mg/dl POC Glucose (70-99) mg/dl Lactate 7.3 H* (0.4-2.0) mmol/L Calcium (8.5-10.1) mg/dl Magnesium (1.8-2.4) mg/dl Total Bilirubin (0.2-1) mg/dl AST (15-37) U/L ALT (12-78) U/L Alkaline Phosphatase (45-117) U/L Troponin I 52.800 H* (0-0.045) ng/ml Total Protein (6.4-8.2) gm/dl Albumin (3.4-5.0) gm/dl Globulin (2.5-4.0) gm/dl Albumin/Globulin Ratio (0.9-2) Procalcitonin (0-0.5) ng/ml Urine Color Yellow Urine Appearance Clear (Clear) Urine pH 5.0 (4.5-7.5) Ur Specific [place] 1.017 (1.000-1.030) Urine Protein Trace H (Negative) Urine Glucose (UA) Negative (Negative) Urine Ketones Negative (Negative) Urine Blood Negative (Negative) Urine Nitrite Negative (Negative) Urine Bilirubin Negative (Negative) Urine Urobilinogen Negative (Negative) Ur Leukocyte Esterase Negative (Negative) Urine WBC (Auto) 1-5 (0-5) /hpf Urine RBC (Auto) 0-4 (0-4) /hpf U Hyaline Cast (Auto) 1-5 (0-5) /lpf U Epithel Cells (Auto) >30 H (0-5) /lpf Urine Bacteria (Auto) Negative (Negative) COVID-19 Eval Order SARS-CoV-2 (PCR) (Negative) SARS-CoV-2 RNA (JONNIE) 10/05/20 10/05/20 10/05/20 Range/Units 06:37 06:14 06:14 WBC (4.8-10.8) K/uL RBC (4.2-5.4) M/uL Hgb (12.0-16.0) g/dL Hct (37-47) % MCV (80-100) fL MCH (25-34) pg MCHC (32-36) g/dL RDW Std Deviation (36.4-46.3) fL RDW Coeff of Fercho (11.5-14.5) % Plt Count (130-400) K/uL MPV (7.4-10.4) fL Immature Gran % (Auto) % Neut % (Auto) % Lymph % (Auto) % [place] % (Auto) % Eos % (Auto) % Baso % (Auto) % Neut # (Auto) (1.4-6.5) K/uL Lymph # (Auto) (1.2-3.4) K/uL [place] # (Auto) (0.11-0.59) K/uL Eos # (Auto) (0-0.5) K/uL Baso # (Auto) (0-0.2) K/uL Immature Gran # (Auto) (0.00-0.02) K/uL APTT (21.0-31.0) Seconds PTT Ratio Sodium (136-145) mmol/L Potassium (3.5-5.1) mmol/L Chloride (98-107) mmol/L Carbon Dioxide (21-32) mmol/L Anion Gap (3-11) BUN (7-18) mg/dl Creatinine (0.6-1.2) mg/dl Est Cr Clr Drug Dosing ml/min Est GFR ( Amer) ml/min Est GFR (Non-Af Amer) ml/min BUN/Creatinine Ratio (10-20) Glucose (70-99) mg/dl POC Glucose (70-99) mg/dl Lactate 8.9 H* (0.4-2.0) mmol/L Calcium (8.5-10.1) mg/dl Magnesium (1.8-2.4) mg/dl Total Bilirubin (0.2-1) mg/dl AST (15-37) U/L ALT (12-78) U/L Alkaline Phosphatase (45-117) U/L Troponin I (0-0.045) ng/ml Total Protein (6.4-8.2) gm/dl Albumin (3.4-5.0) gm/dl Globulin (2.5-4.0) gm/dl Albumin/Globulin Ratio (0.9-2) Procalcitonin (0-0.5) ng/ml Urine Color Urine Appearance (Clear) Urine pH (4.5-7.5) Ur Specific [place] (1.000-1.030) Urine Protein (Negative) Urine Glucose (UA) (Negative) Urine Ketones (Negative) Urine Blood (Negative) Urine Nitrite (Negative) Urine Bilirubin (Negative) Urine Urobilinogen (Negative) Ur Leukocyte Esterase (Negative) Urine WBC (Auto) (0-5) /hpf Urine RBC (Auto) (0-4) /hpf U Hyaline Cast (Auto) (0-5) /lpf U Epithel Cells (Auto) (0-5) /lpf Urine Bacteria (Auto) (Negative) COVID-19 Eval Order Covid19 at [facility] SARS-CoV-2 (PCR) POSITIVE A* (Negative) SARS-CoV-2 RNA (JONNIE) 10/05/20 10/05/20 10/05/20 Range/Units 04:23 04:23 04:23 WBC (4.8-10.8) K/uL RBC (4.2-5.4) M/uL Hgb (12.0-16.0) g/dL Hct (37-47) % MCV (80-100) fL MCH (25-34) pg MCHC (32-36) g/dL RDW Std Deviation (36.4-46.3) fL RDW Coeff of Fercho (11.5-14.5) % Plt Count (130-400) K/uL MPV (7.4-10.4) fL Immature Gran % (Auto) % Neut % (Auto) % Lymph % (Auto) % [place] % (Auto) % Eos % (Auto) % Baso % (Auto) % Neut # (Auto) (1.4-6.5) K/uL Lymph # (Auto) (1.2-3.4) K/uL [place] # (Auto) (0.11-0.59) K/uL Eos # (Auto) (0-0.5) K/uL Baso # (Auto) (0-0.2) K/uL Immature Gran # (Auto) (0.00-0.02) K/uL APTT (21.0-31.0) Seconds PTT Ratio Sodium 137 (136-145) mmol/L Potassium 4.2 (3.5-5.1) mmol/L Chloride 101 (98-107) mmol/L Carbon Dioxide 26 (21-32) mmol/L Anion Gap 10.0 (3-11) BUN 38 H (7-18) mg/dl Creatinine 1.46 H (0.6-1.2) mg/dl Est Cr Clr Drug Dosing 24.7 ml/min Est GFR ( Amer) 39.3 ml/min Est GFR (Non-Af Amer) 33.9 ml/min BUN/Creatinine Ratio 25.9 H (10-20) Glucose 125 H (70-99) mg/dl POC Glucose (70-99) mg/dl Lactate 9.3 H* (0.4-2.0) mmol/L Calcium 9.5 (8.5-10.1) mg/dl Magnesium 2.0 (1.8-2.4) mg/dl Total Bilirubin 0.6 (0.2-1) mg/dl AST 113 H (15-37) U/L ALT 25 (12-78) U/L Alkaline Phosphatase 75 (45-117) U/L Troponin I 20.000 H* (0-0.045) ng/ml Total Protein 7.2 (6.4-8.2) gm/dl Albumin 3.2 L (3.4-5.0) gm/dl Globulin 4.0 (2.5-4.0) gm/dl Albumin/Globulin Ratio 0.8 L (0.9-2) Procalcitonin 0.52 H (0-0.5) ng/ml Urine Color Urine Appearance (Clear) Urine pH (4.5-7.5) Ur Specific [place] (1.000-1.030) Urine Protein (Negative) Urine Glucose (UA) (Negative) Urine Ketones (Negative) Urine Blood (Negative) Urine Nitrite (Negative) Urine Bilirubin (Negative) Urine Urobilinogen (Negative) Ur Leukocyte Esterase (Negative) Urine WBC (Auto) (0-5) /hpf Urine RBC (Auto) (0-4) /hpf U Hyaline Cast (Auto) (0-5) /lpf U Epithel Cells (Auto) (0-5) /lpf Urine Bacteria (Auto) (Negative) COVID-19 Eval Order SARS-CoV-2 (PCR) (Negative) SARS-CoV-2 RNA (JONNIE) 10/05/20 Range/Units 04:23 WBC 13.66 H (4.8-10.8) K/uL RBC 4.06 L (4.2-5.4) M/uL Hgb 11.1 L (12.0-16.0) g/dL Hct 35.0 L (37-47) % MCV 86.2 (80-100) fL MCH 27.3 (25-34) pg MCHC 31.7 L (32-36) g/dL RDW Std Deviation 59.3 H (36.4-46.3) fL RDW Coeff of Fercho 18.7 H (11.5-14.5) % Plt Count 259 (130-400) K/uL MPV 10.7 H (7.4-10.4) fL Immature Gran % (Auto) 0.2 % Neut % (Auto) 82.9 % Lymph % (Auto) 9.5 % [place] % (Auto) 7.2 % Eos % (Auto) 0.1 % Baso % (Auto) 0.1 % Neut # (Auto) 11.32 H (1.4-6.5) K/uL Lymph # (Auto) 1.30 (1.2-3.4) K/uL [place] # (Auto) 0.98 H (0.11-0.59) K/uL Eos # (Auto) 0.02 (0-0.5) K/uL Baso # (Auto) 0.01 (0-0.2) K/uL Immature Gran # (Auto) 0.03 H (0.00-0.02) K/uL APTT (21.0-31.0) Seconds PTT Ratio Sodium (136-145) mmol/L Potassium (3.5-5.1) mmol/L Chloride (98-107) mmol/L Carbon Dioxide (21-32) mmol/L Anion Gap (3-11) BUN (7-18) mg/dl Creatinine (0.6-1.2) mg/dl Est Cr Clr Drug Dosing ml/min Est GFR ( Amer) ml/min Est GFR (Non-Af Amer) ml/min BUN/Creatinine Ratio (10-20) Glucose (70-99) mg/dl POC Glucose (70-99) mg/dl Lactate (0.4-2.0) mmol/L Calcium (8.5-10.1) mg/dl Magnesium (1.8-2.4) mg/dl Total Bilirubin (0.2-1) mg/dl AST (15-37) U/L ALT (12-78) U/L Alkaline Phosphatase (45-117) U/L Troponin I (0-0.045) ng/ml Total Protein (6.4-8.2) gm/dl Albumin (3.4-5.0) gm/dl Globulin (2.5-4.0) gm/dl Albumin/Globulin Ratio (0.9-2) Procalcitonin (0-0.5) ng/ml Urine Color Urine Appearance (Clear) Urine pH (4.5-7.5) Ur Specific [place] (1.000-1.030) Urine Protein (Negative) Urine Glucose (UA) (Negative) Urine Ketones (Negative) Urine Blood (Negative) Urine Nitrite (Negative) Urine Bilirubin (Negative) Urine Urobilinogen (Negative) Ur Leukocyte Esterase (Negative) Urine WBC (Auto) (0-5) /hpf Urine RBC (Auto) (0-4) /hpf U Hyaline Cast (Auto) (0-5) /lpf U Epithel Cells (Auto) (0-5) /lpf Urine Bacteria (Auto) (Negative) COVID-19 Eval Order SARS-CoV-2 (PCR) (Negative) SARS-CoV-2 RNA (JONNIE) Coding Level of Care Code Critical Care 1st 30-74 mins Diagnoses Shock circulatory R57.9 Acute metabolic encephalopathy G93.41 Pneumonia due to COVID-19 virus U07.1; J12.89 Non-ST elevation NC (NSTEMI) I21.4 SARAVANAN (acute kidney injury) N17.9 Lactic acid acidosis E87.2 DNR no code (do not resuscitate) Z66
[2020-10-05] MEDS ORDERED: STAT IV Infusion **Titration per Protocol STA (14:01)
[2020-10-05] MEDS ORDERED: VASOPRESSIN 20 UNITS in 0.9 % SODIUM CHLORIDE 100 ML IV SCH (14:15)
[2020-10-05] MEDS ORDERED: NOREPINEPHRINE/D5W 8 MG/508 ML BAG IV SCH (14:15)
--- NOTE | 2020-10-05 14:31 | Cardiology Consultation ---
Date of Consultation October 05, 2020 Assessment & Plan (1) Shock circulatory: Patient is an elderly 80-year-old female with underlying vascular dementia and diffuse vascular disease as outlined history is notable for ischemic cardiomyopathy with prior coronary bypass grafting in the remote past. Patient presents with signs and symptoms of septic shock febrile, hypotensive, acidotic Troponins are elevated likely on the basis of demand anemia and acute renal insufficiency. Agree with fluid resuscitation antibiotics and anticoagulation. Overall prognosis limited. No indications for acute coronary invention (2) Lactic acid acidosis: (3) SARAVANAN (acute kidney injury): (4) Ischemic cardiomyopathy with implantable cardioverter-defibrillator (ICD): History of Present Illness Reason for Consultation: Elevated troponin, septic shock Requesting Physician: Dr Noble Attending Physician: Gulshan Schneider DO History of Present Illness Patient is an 80-year-old female with data obtained from review of records with patient unable to offer any additional history Ongoing medical issues include 1. Diffuse vascular disease, coronary artery disease 2. Status post coronary bypass grafting 2007 KOWALSKI graft LAD, saphenous vein graft to the posterior descending artery 3. Carotid artery stent left 2009 4. Peripheral vascular disease 5. Ischemic cardiomyopathy EF 30-35% by last interrogation 2018 6. Status post biventricular prior pacemaker insertion with upgrade to biven tricular device in 2017, [facility] device device care followed by [facility] 7. Severe vascular dementia, resident Shawn Per review of records patient's had declining functional status with patient discharged following Covid pneumonia in March 2020 on hospice care. Patient now presents with signs and symptoms of sepsis and septic shock. Troponin elevated to 52 with patient febrile and acidotic. DNR/DNI status noted No EKG performed. Chest x-ray mildly plethoric without profound pulmonary edema or infiltrate Patient currently being transferred to the intensive care unit for resuscitative care Allergies Allergy/AdvReac Type Severity Reaction Status Date / Time Bactrim Allergy Unknown . Verified 09/05/17 16:36 lisinopril Allergy Unknown Unknown Verified 10/05/20 07:19 Penicillins Allergy Unknown ON Verified 10/05/20 07:19 ELMCROFT LIST sulfamethoxazole Allergy Unknown ON Verified 10/05/20 07:19 ELMCROFT LIST trimethoprim Allergy Unknown ON Verified 10/05/20 07:19 ELMCROFT LIST atorvastatin AdvReac Intermediate MUSCLE PAIN Verified 10/05/20 07:19 capsaicin AdvReac Intermediate N/V Verified 10/05/20 07:19 diclofenac AdvReac Intermediate N/V Verified 10/05/20 07:19 Diclopak AdvReac Intermediate N/V Verified 09/05/17 13:27 rosuvastatin AdvReac Intermediate MUSCLE PAIN Verified 10/05/20 07:19 fenofibrate AdvReac Mild SORE MOUTH Verified 10/05/20 07:19 Home Medications Medication Instructions Recorded Confirmed Type aspirin [Aspirin Low Dose] 81 mg PO QAM 12/22/17 10/05/20 History carvedilol 12.5 mg PO BID 12/22/17 10/05/20 History fluticasone propionate 1 spray INTRANASAL QAM 12/22/17 10/05/20 History tolterodine [Detrol] 1 mg PO HS 12/22/17 10/05/20 History losartan 25 mg PO QAM 09/10/18 10/05/20 History prednisone 5 mg PO QAM 12/22/18 10/05/20 History Levemir FlexTouch U-100 Insuln See Rx Instructions .ROUTE .COMPLEX 03/28/20 10/05/20 History furosemide 20 mg PO QAM 03/28/20 10/05/20 History omeprazole 20 mg PO DAILY 03/28/20 10/05/20 History potassium chloride 10 meq PO BID 03/28/20 10/05/20 History multivitamin [Daily-Erlinda] 1 tab PO DAILY 04/02/20 10/05/20 History cephalexin 500 mg PO BID 10/05/20 10/05/20 History cholecalciferol (vitamin D3) 10 mcg PO QAM 10/05/20 10/05/20 History [Vitamin D3] metolazone 2.5 mg PO 3XWK 10/05/20 10/05/20 History Patient History Medical History RADHA inhibitor intolerance Carotid arterial disease Cholelithiasis Chronic systolic heart failure Coronary artery disease "s/p HI" Dementia Diabetes mellitus, type 2 GERD (gastroesophageal reflux disease) History of bradycardia History of left common carotid artery stent placement HTN (hypertension) ICD (implantable cardioverter-defibrillator) in place Ischemic cardiomyopathy Osteomyelitis Pacemaker PAD (peripheral artery disease) LSFA/popliteal/peroneal artery angioplasty on 06/01/17 PMR (polymyalgia rheumatica) PVD (peripheral vascular disease) Statin intolerance Surgical History S/P CABG x 2 Status post cataract extraction Status post tubal ligation Family History Brother Diabetes Sister Diabetes Social History Smoking Status: Unknown if ever smoked Second Hand Exposure: No; Preferred Language: Trinidadian Communication Ability: Impaired Communication Ability Comment: unable to assess Visual Impairment: No Limitations Hearing Ability: Normal Oxidation Engineer Required: No Beliefs That Will Affect Care: None marital status: / Current Living Situation: Personal Care Facility Current Living Situation Comment: [facility] dementia unit current occupational status: retired Feels Safe at Home: Yes Assistive Devices: None Review of Systems Review of Systems: Unobtainable due to cognitive status Results & Data ([facility]) Vital Signs (Past 12 Hours) Vital Signs Temp Pulse Pulse Resp BP BP Pulse Ox 10/05/20 14:16 79 84/64 L 94 10/05/20 14:00 79 24 66/43 L 96 10/05/20 13:45 81 78/40 L 91 10/05/20 13:25 79 28 H 91/22 L 93 10/05/20 13:19 66 26 H 60/36 L 78 L 10/05/20 13:15 73 26 H 56/37 L 85 L 10/05/20 13:00 37 C 74 28 H 68/43 L 91 10/05/20 12:47 81 66/45 L 10/05/20 12:35 79/49 L 10/05/20 12:21 86/41 L 10/05/20 11:40 96 H 89/58 L 10/05/20 11:15 95 H 22 92/75 L 96 10/05/20 11:00 94 H 100/58 L 10/05/20 10:30 95 H 20 72/39 L 94 10/05/20 10:01 36.6 C 24 74/39 L 96 10/05/20 09:31 88 16 84/60 L 94 10/05/20 06:30 94 H 18 98/64 L 97 10/05/20 06:00 85 13 74/52 L 10/05/20 05:46 87 14 98/51 L 98 10/05/20 05:45 87 19 98 10/05/20 05:30 81 18 79/42 L 10/05/20 05:01 104 H 16 101/57 L 93 10/05/20 05:00 100 H 18 95 10/05/20 04:50 36.8 C 100 H 18 92/61 L 92 10/05/20 04:49 104 H 21 92/61 L 10/05/20 04:30 106 H 21 10/05/20 04:18 111 H 18 10/05/20 04:17 101 H 18 94/63 L 10/05/20 04:15 112 H 18 83/52 L Laboratory Results Laboratory Results - last 24 hr 10/05/20 10/05/20 10/05/20 04:23 04:23 04:23 WBC 13.66 H RBC 4.06 L Hgb 11.1 L Hct 35.0 L MCV 86.2 MCH 27.3 MCHC 31.7 L RDW Std Deviation 59.3 H RDW Coeff of Fercho 18.7 H Plt Count 259 MPV 10.7 H Immature Gran % (Auto) 0.2 Neut % (Auto) 82.9 Lymph % (Auto) 9.5 Cocke % (Auto) 7.2 Eos % (Auto) 0.1 Baso % (Auto) 0.1 Neut # (Auto) 11.32 H Lymph # (Auto) 1.30 Cocke # (Auto) 0.98 H Eos # (Auto) 0.02 Baso # (Auto) 0.01 Immature Gran # (Auto) 0.03 H APTT PTT Ratio Sodium 137 Potassium 4.2 Chloride 101 Carbon Dioxide 26 Anion Gap 10.0 BUN 38 H Creatinine 1.46 H Est Cr Clr Drug Dosing 24.7 Est GFR ( Amer) 39.3 Est GFR (Non-Af Amer) 33.9 BUN/Creatinine Ratio 25.9 H Glucose 125 H POC Glucose Lactate 9.3 H* Calcium 9.5 Magnesium 2.0 Total Bilirubin 0.6 AST 113 H ALT 25 Alkaline Phosphatase 75 Troponin I 20.000 H* Total Protein 7.2 Albumin 3.2 L Globulin 4.0 Albumin/Globulin Ratio 0.8 L Procalcitonin Urine Color Urine Appearance Urine pH Ur Specific [place] Urine Protein Urine Glucose (UA) Urine Ketones Urine Blood Urine Nitrite Urine Bilirubin Urine Urobilinogen Ur Leukocyte Esterase Urine WBC (Auto) Urine RBC (Auto) U Hyaline Cast (Auto) U Epithel Cells (Auto) Urine Bacteria (Auto) COVID-19 Eval Order SARS-CoV-2 (PCR) SARS-CoV-2 RNA (JONNIE) 10/05/20 10/05/20 10/05/20 04:23 06:14 06:14 WBC RBC Hgb Hct MCV MCH MCHC RDW Std Deviation RDW Coeff of Fercho Plt Count MPV Immature Gran % (Auto) Neut % (Auto) Lymph % (Auto) Cocke % (Auto) Eos % (Auto) Baso % (Auto) Neut # (Auto) Lymph # (Auto) Cocke # (Auto) Eos # (Auto) Baso # (Auto) Immature Gran # (Auto) APTT PTT Ratio Sodium Potassium Chloride Carbon Dioxide Anion Gap BUN Creatinine Est Cr Clr Drug Dosing Est GFR ( Amer) Est GFR (Non-Af Amer) BUN/Creatinine Ratio Glucose POC Glucose Lactate Calcium Magnesium Total Bilirubin AST ALT Alkaline Phosphatase Troponin I Total Protein Albumin Globulin Albumin/Globulin Ratio Procalcitonin 0.52 H Urine Color Urine Appearance Urine pH Ur Specific [place] Urine Protein Urine Glucose (UA) Urine Ketones Urine Blood Urine Nitrite Urine Bilirubin Urine Urobilinogen Ur Leukocyte Esterase Urine WBC (Auto) Urine RBC (Auto) U Hyaline Cast (Auto) U Epithel Cells (Auto) Urine Bacteria (Auto) COVID-19 Eval Order Covid19 at [facility] SARS-CoV-2 (PCR) POSITIVE A* SARS-CoV-2 RNA (JONNIE) 10/05/20 10/05/20 10/05/20 06:37 09:00 10:45 WBC RBC Hgb Hct MCV MCH MCHC RDW Std Deviation RDW Coeff of Fercho Plt Count MPV Immature Gran % (Auto) Neut % (Auto) Lymph % (Auto) [place] % (Auto) Eos % (Auto) Baso % (Auto) Neut # (Auto) Lymph # (Auto) Coc[place] # (Auto) Eos # (Auto) Baso # (Auto) Immature Gran # (Auto) APTT PTT Ratio Sodium Potassium Chloride Carbon Dioxide Anion Gap BUN Creatinine Est Cr Clr Drug Dosing Est GFR ( Amer) Est GFR (Non-Af Amer) BUN/Creatinine Ratio Glucose POC Glucose Lactate 8.9 H* 7.3 H* Calcium Magnesium Total Bilirubin AST ALT Alkaline Phosphatase Troponin I Total Protein Albumin Globulin Albumin/Globulin Ratio Procalcitonin Urine Color Yellow Urine Appearance Clear Urine pH 5.0 Ur Specific [place] 1.017 Urine Protein Trace H Urine Glucose (UA) Negative Urine Ketones Negative Urine Blood Negative Urine Nitrite Negative Urine Bilirubin Negative Urine Urobilinogen Negative Ur Leukocyte Esterase Negative Urine WBC (Auto) 1-5 Urine RBC (Auto) 0-4 U Hyaline Cast (Auto) 1-5 U Epithel Cells (Auto) >30 H Urine Bacteria (Auto) Negative COVID-19 Eval Order SARS-CoV-2 (PCR) SARS-CoV-2 RNA (JONNIE) 10/05/20 10/05/20 10/05/20 10:48 10:48 11:47 WBC RBC Hgb Hct MCV MCH MCHC RDW Std Deviation RDW Coeff of Fercho Plt Count MPV Immature Gran % (Auto) Neut % (Auto) Lymph % (Auto) [place]ke % (Auto) Eos % (Auto) Baso % (Auto) Neut # (Auto) Lymph # (Auto) [place] # (Auto) Eos # (Auto) Baso # (Auto) Immature Gran # (Auto) APTT 29.6 PTT Ratio 1.1 Sodium Potassium Chloride Carbon Dioxide Anion Gap BUN Creatinine Est Cr Clr Drug Dosing Est GFR ( Amer) Est GFR (Non-Af Amer) BUN/Creatinine Ratio Glucose POC Glucose 117 H Lactate Calcium Magnesium Total Bilirubin AST ALT Alkaline Phosphatase Troponin I 52.800 H* Total Protein Albumin Globulin Albumin/Globulin Ratio Procalcitonin Urine Color Urine Appearance Urine pH Ur Specific [place] Urine Protein Urine Glucose (UA) Urine Ketones Urine Blood Urine Nitrite Urine Bilirubin Urine Urobilinogen Ur Leukocyte Esterase Urine WBC (Auto) Urine RBC (Auto) U Hyaline Cast (Auto) U Epithel Cells (Auto) Urine Bacteria (Auto) COVID-19 Eval Order SARS-CoV-2 (PCR) SARS-CoV-2 RNA (JONNIE) 10/05/20 10/05/20 10/05/20 12:48 12:55 12:55 WBC RBC Hgb Hct MCV MCH MCHC RDW Std Deviation RDW Coeff of Fercho Plt Count MPV Immature Gran % (Auto) Neut % (Auto) Lymph % (Auto) [place] % (Auto) Eos % (Auto) Baso % (Auto) Neut # (Auto) Lymph # (Auto) [place] # (Auto) Eos # (Auto) Baso # (Auto) Immature Gran # (Auto) APTT PTT Ratio Sodium Potassium Chloride Carbon Dioxide Anion Gap BUN Creatinine Est Cr Clr Drug Dosing Est GFR ( Amer) Est GFR (Non-Af Amer) BUN/Creatinine Ratio Glucose POC Glucose Lactate 7.6 H* Calcium Magnesium Total Bilirubin AST ALT Alkaline Phosphatase Troponin I Total Protein Albumin Globulin Albumin/Globulin Ratio Procalcitonin Urine Color Urine Appearance Urine pH Ur Specific [place] Urine Protein Urine Glucose (UA) Urine Ketones Urine Blood Urine Nitrite Urine Bilirubin Urine Urobilinogen Ur Leukocyte Esterase Urine WBC (Auto) Urine RBC (Auto) U Hyaline Cast (Auto) U Epithel Cells (Auto) Urine Bacteria (Auto) COVID-19 Eval Order Covid19 at [facility] SARS-CoV-2 (PCR) SARS-CoV-2 RNA (JONNIE) Cancelled 10/05/20 12:55 WBC RBC Hgb Hct MCV MCH MCHC RDW Std Deviation RDW Coeff of Fercho Plt Count MPV Immature Gran % (Auto) Neut % (Auto) Lymph % (Auto) [place]ke % (Auto) Eos % (Auto) Baso % (Auto) Neut # (Auto) Lymph # (Auto) [place] # (Auto) Eos # (Auto) Baso # (Auto) Immature Gran # (Auto) APTT PTT Ratio Sodium Potassium Chloride Carbon Dioxide Anion Gap BUN Creatinine Est Cr Clr Drug Dosing Est GFR ( Amer) Est GFR (Non-Af Amer) BUN/Creatinine Ratio Glucose POC Glucose Lactate Calcium Magnesium Total Bilirubin AST ALT Alkaline Phosphatase Troponin I Total Protein Albumin Globulin Albumin/Globulin Ratio Procalcitonin Urine Color Urine Appearance Urine pH Ur Specific [place] Urine Protein Urine Glucose (UA) Urine Ketones Urine Blood Urine Nitrite Urine Bilirubin Urine Urobilinogen Ur Leukocyte Esterase Urine WBC (Auto) Urine RBC (Auto) U Hyaline Cast (Auto) U Epithel Cells (Auto) Urine Bacteria (Auto) COVID-19 Eval Order SARS-CoV-2 (PCR) POSITIVE A* SARS-CoV-2 RNA (JONNIE)
--- NOTE | 2020-10-05 16:13 | Discharge Summary ---
Date of Service October 05, 2020 Admission HPI Per Admitting Provider 80-year-old female with past medical history significant for type 2 diabetes, hyperlipidemia, allergic rhinitis, history of ischemic cardiomyopathy EF of 30- 35%, systolic failure, status post ICD and pacemaker, vascular dementia, hearing loss, polymyalgia rheumatica, GERD, hypertension, peripheral vascular disease, carotid stenosis. The patient is currently in hospice care at [facility], was brought in because of her fever and infection of the left foot. As per daughter, patient was here in March with COVID and at that time she was discharged to hospice care. As per daughter, the patient visited the daughter last Tuesday for her birthday, then last Tuesday, she bumped her left foot and last night, she was noticed to have 102 of fever and infection and she was brought in here. The patient is confused and she was somewhat agitated and tried to hit the staff and blood pressure was on the lower side, some tachycardia. White count of 13.6, creatinine 1.4. Lactic acid . Troponin is 20. Foot x-ray of the left foot showed no soft tissue edema throughout the forefoot, no acute bony abnormality identified. Chest x-ray, no airspace consolidations or large pleural effusion seen. The patient is confused, could not get any history from the patient. I talked to the daughter, daughter says the patient is DNR/DNI and does not want any aggressive measures just antibiotics and fluids. No central lines or pressors. Understands that the patient is in critical condition. Admission Exam Per Admitting Provider PHYSICAL EXAMINATION: GENERAL EXAM: Patient is alert and awake, confused, somewhat agitated. VITAL SIGNS: Temperature 36.8, pulse 94, blood pressure 98/64, oxygen 97% on room air. HEENT: Extra ocular muscles intact. NECK: No neck masses or JVD is seen. CARDIOVASCULAR: S1 and S2, tachycardia. No murmurs. RESPIRATORY SYSTEM: Normal AP diameter. No accessory muscle use. No wheezing, no crackles. ABDOMEN: Soft, bowel sounds present, nontender. CENTRAL NERVOUS SYSTEMS: Consistent with agitated, moving extremities. EXTREMITIES: No edema is seen. Left foot diabetic foot ulcer seen and erythema seen. Principal Diagnosis 1. Sepsis, septic shock and elevated lactic acid of 8.9. Source of infection left foot 2. Non-ST elevated myocardial infarction 3. Diabetes 4. chronic systolic congestive heart failure, EF 30-35%, status post AICD 5. Polymyalgia rheumatica. 6. Peripheral Vascular Disease. 7. Hypertension. 8. Vascular dementia 9. Acute kidney injury on chronic kidney disease stage II 10. Tested COVID positive Discharge Exam No Pulse, No HB, No Respirations Discharge Data Allergies Allergy/AdvReac Type Severity Reaction Status Date / Time Bactrim Allergy Unknown . Verified 09/05/17 16:36 lisinopril Allergy Unknown Unknown Verified 10/05/20 07:19 Penicillins Allergy Unknown ON Verified 10/05/20 07:19 ELMCROFT LIST sulfamethoxazole Allergy Unknown ON Verified 10/05/20 07:19 ELMCROFT LIST trimethoprim Allergy Unknown ON Verified 10/05/20 07:19 ELMCROFT LIST atorvastatin AdvReac Intermediate MUSCLE PAIN Verified 10/05/20 07:19 capsaicin AdvReac Intermediate N/V Verified 10/05/20 07:19 diclofenac AdvReac Intermediate N/V Verified 10/05/20 07:19 Diclopak AdvReac Intermediate N/V Verified 09/05/17 13:27 rosuvastatin AdvReac Intermediate MUSCLE PAIN Verified 10/05/20 07:19 fenofibrate AdvReac Mild SORE MOUTH Verified 10/05/20 07:19 Consultations 10/05/20 05:59 ED Decision to Admit Stat 10/05/20 10:01 Consult Cardiology Routine 10/05/20 13:04 Consult Transformer Builder Stat Current Diagnoses Acidosis (10/05/20) Metabolic encephalopathy (10/05/20) Non-ST elevation (NSTEMI) myocardial infarction (10/05/20) Other viral pneumonia (10/05/20) Acute kidney failure, unspecified (10/05/20) Shock, unspecified (10/05/20) COVID-19 (10/05/20) Do not resuscitate (10/05/20) Allergies Bactrim Allergy (Unknown, Verified 09/05/17 16:36) . lisinopril Allergy (Unknown, Verified 10/05/20 07:19) Unknown Penicillins Allergy (Unknown, Verified 10/05/20 07:19) ON ELMCROFT LIST sulfamethoxazole Allergy (Unknown, Verified 10/05/20 07:19) ON ELMCROFT LIST trimethoprim Allergy (Unknown, Verified 10/05/20 07:19) ON ELROFT LIST atorvastatin Adverse Reaction (Intermediate, Verified 10/05/20 07:19) MUSCLE PAIN capsaicin Adverse Reaction (Intermediate, Verified 10/05/20 07:19) N/V diclofenac Adverse Reaction (Intermediate, Verified 10/05/20 07:19) N/V Diclopak Adverse Reaction (Intermediate, Verified 09/05/17 13:27) N/V rosuvastatin Adverse Reaction (Intermediate, Verified 10/05/20 07:19) MUSCLE PAIN fenofibrate Adverse Reaction (Mild, Verified 10/05/20 07:19) SORE MOUTH Height/Weight/Isolation Height 5 ft 2 in Weight 58.6 kg Chemistry 10/05/20 04:23 Sodium 137 Potassium 4.2 Chloride 101 Carbon Dioxide 26 Anion Gap 10.0 BUN 38 H Creatinine 1.46 H Glucose 125 H Urinalysis 10/05/20 09:00 Urine Color Yellow Urine Appearance Clear Urine pH 5.0 Ur Specific [place] 1.017 Urine Protein Trace H Urine Glucose (UA) Negative Urine Ketones Negative Urine Blood Negative Urine Nitrite Negative Urine Bilirubin Negative Microbiology 10/05/20 04:23 Blood Aerobic Blood Culture - Pending 10/05/20 04:23 Blood Anaerobic Blood Culture - Pending 10/05/20 04:23 Blood Aerobic Blood Culture - Pending 10/05/20 04:23 Blood Anaerobic Blood Culture - Pending Hospital Course (1) Septic shock: (2) 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 Her BP was low so I gave her IVFs, Albumin, Solucortef and transferred her to the ICU. Family wanted no Lines/CPR. Patient tested positive for COVID and repeat was also positive. We were trying to prove a false negative so family could visit. Her second covid was also positive. At 1525 the patient stopped breathing and . Daughter called twice LM, No answer x 2, Son called twice, no answer, Home phone called, No answer, LM. Total Time Total Time Spent Total Time Spent (In Minutes): 45 mins Total Time Includes: Examination of the Patient, Discharge Planning and Medication Reconciliation Discharge Plan Discharge Items Patient Disposition: Reason For Visit: FEVER Discharge Diagnosis: 1. Septic shock and elevated lactic acid of 8.9. Source of infection is left foot DFU 2. Non-ST elevated myocardial infarction 3. Diabetes 4. chronic systolic congestive heart failure, EF 30-35%, status post AICD 5. Polymyalgia rheumatica. 6. Peripheral Vascular Disease. 7. Hypertension. 8. Vascular dementia 9. Acute kidney injury on chronic kidney disease stage II 10. Tested COVID positive Follow-up/Referrals: Shawn, [Primary Care Provider] - Low Attending Provider Instructions: None Stand-Alone Forms: My [facility] Medications and DC Order Prescriptions: No Action tolterodine [Detrol] 1 mg Tablet 1 mg PO HS RF: 0 carvedilol 12.5 mg Tablet 12.5 mg PO BID RF: 0 fluticasone propionate 50 mcg/actuation [place],Suspension 1 spray INTRANASAL QAM RF: 0 aspirin [Aspirin Low Dose] 81 mg Tablet,Delayed Release (Dr/Ec) 81 mg PO QAM RF: 0 losartan 25 mg Tablet 25 mg PO QAM RF: 0 multivitamin [Daily-Erlinda] Tablet 1 tab PO DAILY RF: 0 prednisone 5 mg Tablet 5 mg PO QAM RF: 0 omeprazole 20 mg capsule,delayed release(DR/EC) 20 mg PO DAILY RF: 0 furosemide 20 mg tablet 20 mg PO QAM RF: 0 potassium chloride 10 mEq tablet,ER particles/crystals 10 meq PO BID RF: 0 Levemir FlexTouch U-100 Insuln 100 unit/mL (3 mL) insulin pen See Rx Instructions .ROUTE .COMPLEX RF: 0 metolazone 2.5 mg tablet 2.5 mg PO 3XWK RF: 0 cephalexin 500 mg Capsule 500 mg PO BID RF: 0 cholecalciferol (vitamin D3) [Vitamin D3] 10 mcg (400 unit) Tablet 10 mcg PO QAM RF: 0 Admission Data Admit Date/Time: 10/05/20 07:31 Attending Provider: Gulshan Schneider Admit Provider: Gamaliel Noble Primary Care Provider: Shawn Other Providers: Gamlaiel Noble ; Hardik Allison ; Bryn Crain
[2020-10-05] MEDS ORDERED: TOLTERODINE TARTRATE 1 MG TAB PO SCH (21:00)
[2020-10-06] MEDS ORDERED: ALBUMIN 25% 12.5 GM/50 ML VIAL IV SCH ×2 (02:00→08:00)
[2020-10-06] MEDS ORDERED: VANCOMYCIN HCL 1,000 MG in SODIUM CHLORIDE 0.9% 250 ML IV SCH (06:00)
--- NOTE | 2020-10-06 14:05 | Electrocardiogram Report ---
Test Reason : Blood Pressure : / mmHG Vent. Rate : 103 BPM Atrial Rate : 103 BPM P-R Int : 138 ms QRS Dur : 174 ms QT Int : 402 ms P-R-T Axes : 099 -80 109 degrees QTc Int : 526 ms Poor data quality, interpretation may be adversely affected Atrial-sensed ventricular-paced rhythm Abnormal ECG When compared with ECG of 02-APR-2020 12:39, Atrial fibrillation is no longer Present Confirmed by Jp Marino ([id number]) on 10/06/2020 2:05:12 PM Referred By: Shawn Confirmed By:Jp Marino
--- NOTE | 2020-10-14 10:51 | Coding Query ---
CODING QUERY To promote full compliance with coding requirements relating to patient care, provider participation is requested in all cases of date puller uncertainty. Please assist us with the question(s) below: Coding Question(s): NSTEMI is documented but Cardiology consult states, "Troponins are elevated likely on the basis of demand anemia and acute renal insufficiency." Please clarify below: (xxx ) Patient with NSTEMI ( ) NSTEMI Ruled Out ( ) Other Please Explain: Thank you Don Bernard Principal Diagnosis: "that condition established after study, to be chiefly responsible for occasioning the admission of the patient to the hospital for care." Co-Existing Principal Diagnosis: "when two or more diagnoses equally meet the criteria for principal diagnosis as determined by the circumstances of admission, diagnostic work up, and/or therapy provided, and the Alphabetic Index, Tabular List, or another coding guideline does not provide sequencing direction, any one of the diagnoses may be sequenced first." "When the physician has documented what appears to be a current diagnosis in the body of the record, but has not included the diagnosis in the final diagnostic statement, the physician should be asked whether the diagnosis should be added." (Source Coding [facility] 2 QTR90. p3-4) JOSÉ ANTONIO
== END 2020-10-05 18:20 | disposition expired | DRG 871 ==
LOC: ED 04:09 → 2E 07:31 → 1E 14:10